=== PATIENT | female | born 1965 | race Caucasian/White ===

== ENCOUNTER 2024-03-16 19:15 | Emergency (ER) | payer OTHER, SELFPAY ==
[2024-03-16] VITALS (33 sets, daily range): BP systolic 111–149; BP diastolic 69–94; PULSE 53–116; TEMP 36.3; O2SAT 96–100
--- NOTE | 2024-03-16 20:05 | ECG_ITS ---
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
--- NOTE | 2024-03-16 20:14 | ED.GENADUL1 ---
HPI HPI - General Adult General Chief complaint: Weakness Stated complaint: Palpitation Time Seen by Provider: 03/16/24 20:02 Source: patient Mode of arrival: Wheelchair Limitations: no limitations History of Present Illness HPI narrative: 59-year-old female presents for not feeling well. It started about a month ago when she stopped the Wegovy on her own but it got much worse yesterday. She was not able to work and she has been vomiting and she states she cannot keep anything down. She has not had a fever or hematemesis and does not complain to me of abdominal pain. Related Data Home Medications ?Medication ?Instructions ?Recorded ?Confirmed cholecalciferol (vitamin D3) 1,250 50,000 unit PO QDAY 03/16/24 03/16/24 mcg (50,000 unit) capsule escitalopram oxalate 20 mg tablet 20 mg PO QDAY 03/16/24 03/16/24 hydrocodone 5 mg-acetaminophen 325 1 tab PO Q8H PRN pain 03/16/24 03/16/24 mg tablet ondansetron 8 mg disintegrating 8 mg PO Q8H PRN nausea and vomiting 03/16/24 03/16/24 tablet pantoprazole 40 mg tablet,delayed 40 mg PO QDAY 03/16/24 03/16/24 release pregabalin 50 mg capsule 50 mg PO Q8H 03/16/24 03/16/24 promethazine 25 mg tablet 25 mg PO TID PRN nausea and 03/16/24 03/16/24 vomiting tizanidine 4 mg tablet 4 mg PO .qhs muscle spasms 03/16/24 03/16/24 Allergies Allergy/AdvReac Type Severity Reaction Status Date / Time tramadol [From Ultram] Allergy unknown Verified 03/16/24 19:30 Opioid HPI Opioid Management Most Recent Opioid Data: Last Pain Scale 6 03/16/24 20:35 Last ED Pain Assessment 03/16/24 20:35 Review of Systems ROS Narrative A ten point review of systems is negative except as noted above. Exam Narrative Exam Narrative: Nurses note and vital signs reviewed and patient is not hypoxic. General: The patient appears in no acute distress but she is shivering. Skin: Warm, dry, no pallor noted. There is no rash noted. Head: Normocephalic, atraumatic Eye: Normal conjunctiva, no drainage Ears, Nose, Mouth, and Throat: oral mucosa is slightly dry. Nares patent. Cardiovascular: Regular Rate and Rhythm Respiratory: Patient is in no distress, no accessory muscle use, lungs are clear to auscultation, no wheezing, rales or rhonchi Back: non-tender GI: Soft and nontender Musculoskeletal: The patient has no evidence of calf tenderness, no pitting edema, symmetrical pulses noted bilaterally Neurological: Awake and alert Psychiatric: Cooperative Constitutional Vital Signs, click to edit/add: Last Vital Signs Temp 97.3 F L 03/16/24 19:21 Pulse 85 03/16/24 23:31 Resp 22 H 03/16/24 23:31 BP 143/84 H 03/16/24 23:31 Pulse Ox 99 03/16/24 23:31 O2 Del Method Room Air 03/16/24 19:21 Course Vital Signs Vital signs: Vital Signs Temperature 97.3 F L 03/16/24 19:21 Pulse Rate 116 H 03/16/24 19:21 Respiratory Rate 44 H 03/16/24 19:21 Blood Pressure 126/78 03/16/24 19:21 Pulse Oximetry 98 03/16/24 19:21 Oxygen Delivery Method Room Air 03/16/24 19:21 Temperature 97.3 F L 03/16/24 19:21 Pulse Rate 85 03/16/24 23:31 Respiratory Rate 22 H 03/16/24 23:31 Blood Pressure 143/84 H 03/16/24 23:31 Pulse Oximetry 99 03/16/24 23:31 Oxygen Delivery Method Room Air 03/16/24 19:21 Medical Decision Making MDM Narrative Medical decision making narrative: Blood work is essentially normal other than low potassium. She was given oral supplementation. She was given IV fluids and Zofran and feels tremendously better. Her symptoms have resolved and she is able to be discharged home. Treatment diagnosis and follow-up were discussed with the patient Differential Diagnosis Differential Diagnosis: Generalized weakness, dehydration, acute kidney injury, anxiety Lab Data Lab results reviewed: Yes I reviewed the patient's lab results Labs: Lab Results 03/16/24 03/16/24 Range/Units 20:35 21:35 WBC 6.7 (4.0-11.0) 10^3/uL RBC 4.17 L (4.20-5.40) 10^6/uL Hgb 13.6 (12.0-16.0) g/dL Hct 40.1 (36.0-48.0) % MCV 96.2 (81.0-99.0) fL MCH 32.6 (26.7-34.0) pg MCHC 33.9 (29.9-35.2) g/dL RDW 13.0 (11.0-15.0) % Plt Count 331 (150-450) 10^3/uL MPV 11.3 (9.5-13.5) fL Neut % (Auto) 52.4 (43.0-75.0) % Lymph % (Auto) 35.6 (20.5-60.0) % [place] % (Auto) 9.0 (1.7-12.0) % Eos % (Auto) 1.5 (0.9-7.0) % Baso % (Auto) 1.2 (0.2-2.0) % Neut # (Auto) 3.5 (1.4-6.5) 10^3/uL Lymph # (Auto) 2.4 (1.2-3.8) 10^3/uL [place] # (Auto) 0.6 (0.3-0.8) 10^3/uL Eos # (Auto) 0.1 (0.0-0.7) 10^3/uL Baso # (Auto) 0.1 (0.0-0.1) 10^3/uL Abs Immat Gran (auto) 0.02 (0.00-0.03) 10^3/uL Imm/Tot Granulo (auto) 0.3 (0.0-0.5) % Sodium 139 (136-145) mmol/L Potassium 3.0 L (3.5-5.1) mmol/L Chloride 104 (98-107) mmol/L Carbon Dioxide 21.4 (21.0-32.0) mmol/L Anion Gap 16.6 BUN 10.0 (7.0-18.0) mg/dL Creatinine 0.94 (0.55-1.02) mg/dL Est GFR ( Amer) >60 (>=60) Est GFR (Non-Af Amer) >60 (>=60) BUN/Creatinine Ratio 10.6 Glucose 89 (74-106) mg/dL Calcium 9.6 (8.5-10.1) mg/dL Total Bilirubin 0.8 (0.2-1.0) mg/dL Direct Bilirubin 0.2 (0.0-0.2) mg/dL AST 16 (15-37) U/L ALT 17 (14-59) U/L Alkaline Phosphatase 106 (46-116) U/L Troponin I High Sens 10.8 (4.0-51.3) pg/mL Total Protein 6.5 (6.4-8.2) g/dL Albumin 3.2 L (3.4-5.0) g/dL Globulin 3.3 g/dL Albumin/Globulin Ratio 1.0 Urine Color Lt. yellow (YELLOW) Urine Clarity Clear (CLEAR) Urine pH 7.0 (5.0-9.0) Ur Specific [place] 1.010 (1.005-1.025) Urine Protein Negative (NEG/TRACE) mg/dL Urine Glucose (UA) Negative (NEGATIVE) mg/dL Urine Ketones >=80 A (NEGATIVE) mg/dL Urine Occult Blood Negative (NEGATIVE) Urine Nitrite Negative (NEGATIVE) Urine Bilirubin Negative (NEGATIVE) Urine Urobilinogen 0.2 (0.2-1.0) EU/dL Ur Leukocyte Esterase Negative (NEGATIVE) Urine RBC 0-2 (0-2) #/HPF Urine WBC None seen (NONE SEEN) #/HPF Ur Squamous Epith Cells None seen (NONE/RARE) #/LPF Urine Crystals None seen (None Seen) #/HPF Urine Bacteria None seen (NONE SEEN) #/HPF Urine Casts None seen (NONE SEEN) #/LPF Urine Mucus None seen (NONE SEEN) Ur Culture Indicated? No Imaging Data Chest x-ray: Radiologist's impression: ITS Impressions Chest X-Ray 03/16/24 21:52 IMPRESSION: No plain film evidence for acute cardiopulmonary disease. Electronically authenticated by: CK SCHUMACHER Date: 03/16/2024 23:31 ECG Data Attestation: I personally reviewed and interpreted this ECG as follows: (EKG on my interpretation shows normal sinus rhythm with rate of 74 and no acute change) Discharge Plan Discharge Chief Complaint: Weakness Clinical Impression: Generalized weakness Patient Disposition: Home, Self-Care Time of Disposition Decision: 23:49 Condition: Good Mode of Transportation: Private Vehicle Prescriptions / Home Meds: No Action tizanidine 4 mg tablet 4 mg PO .qhs hydrocodone-acetaminophen 5-325 mg tablet 1 tab PO Q8H PRN (Reason: pain) ondansetron 8 mg tablet,disintegrating 8 mg PO Q8H PRN (Reason: nausea and vomiting) pantoprazole 40 mg tablet,delayed release (DR/EC) 40 mg PO QDAY promethazine 25 mg tablet 25 mg PO TID PRN (Reason: nausea and vomiting) escitalopram oxalate 20 mg tablet 20 mg PO QDAY pregabalin 50 mg capsule 50 mg PO Q8H cholecalciferol (vitamin D3) 1,250 mcg (50,000 unit) capsule 50,000 unit PO QDAY Print Language: Paraguayan Instructions: Weakness (ED) Referrals: GARY GARCIA [Primary Care Provider] - 1 week
[2024-03-16] MEDS: 0.9 % SODIUM CHLORIDE 1,000 ML 1000 ML IV (20:37)
[2024-03-16] MEDS: ONDANSETRON PF 4 MG/2 ML VIAL IV (20:40)
[2024-03-16 20:53] LABS: Basophils Absolute Auto 0.1 10^3/uL (0.0-0.1); Basophils Percent Auto 1.2 % (0.2-2.0); Eosinophils Absolute Auto 0.1 10^3/uL (0.0-0.7); Eosinophils Percent Auto 1.5 % (0.9-7.0); Hematocrit 40.1 % (36.0-48.0); Hemoglobin 13.6 g/dL (12.0-16.0); Immature Granulocytes Abs Auto 0.02 10^3/uL (0.00-0.03); Immature Granulocytes Pct Auto 0.3 % (0.0-0.5); Lymphocytes Absolute Auto 2.4 10^3/uL (1.2-3.8); Lymphocytes Percent Auto 35.6 % (20.5-60.0); Mean Corpuscular HGB Conc 33.9 g/dL (29.9-35.2); Mean Corpuscular Hemoglobin 32.6 pg (26.7-34.0); Mean Corpuscular Volume 96.2 fL (81.0-99.0); Mean Platelet Volume 11.3 fL (9.5-13.5); Monocytes Absolute Auto 0.6 10^3/uL (0.3-0.8); Neutrophils Absolute Auto 3.5 10^3/uL (1.4-6.5); Neutrophils Percent Auto 52.4 % (43.0-75.0); Platelet Count 331 10^3/uL (150-450); Red Blood Count 4.17 10^6/uL (4.20-5.40); White Blood Count 6.7 10^3/uL (4.0-11.0)
[2024-03-16 21:12] LABS: Alanine Aminotransferase 17 U/L (14-59); Albumin Level 3.2 g/dL (3.4-5.0); Alkaline Phosphatase 106 U/L (46-116); Anion Gap 16.6; Aspartate Amino Transferase 16 U/L (15-37); BUN Creatinine Ratio 10.6; Bilirubin Direct 0.2 mg/dL (0.0-0.2); Bilirubin Total 0.8 mg/dL (0.2-1.0); Calcium 9.6 mg/dL (8.5-10.1); Carbon Dioxide 21.4 mmol/L (21.0-32.0); Chloride 104 mmol/L (98-107); Estimated GFR (African America >60 (>=60); Estimated GFR (Non-African Ame >60 (>=60); Globulin 3.3 g/dL; Glucose 89 mg/dL (74-106); Sodium 139 mmol/L (136-145); Total Protein 6.5 g/dL (6.4-8.2); Troponin I High Sensitivity 10.8 pg/mL (4.0-51.3)
[2024-03-16 21:42] LABS: Bilirubin Urine NEGATIVE (NEGATIVE); Blood Urine NEGATIVE (NEGATIVE); Clarity Urine CLEAR (CLEAR); Color Urine LT. YELLOW (YELLOW); Glucose Urine UA NEGATIVE (NEGATIVE); Ketones Urine >=80 mg/dL (NEGATIVE); Leukocyte Esterase Urine NEGATIVE (NEGATIVE); Nitrite Urine NEGATIVE (NEGATIVE); Protein Urine NEGATIVE (NEG/TRACE); Urobilinogen Urine 0.2 EU/dL (0.2-1.0)
[2024-03-16 21:51] LABS: Bacteria Urine NONE SEEN #/HPF (NONE SEEN); Cast Seen? NONE SEEN #/LPF (NONE SEEN); Crystals Seen? None Seen #/HPF (None Seen); Mucus Urine NONE SEEN (NONE SEEN); RBC Urine 0-2 #/HPF (0-2); Squamous Epithelial Cell Urine NONE SEEN #/LPF (NONE/RARE); Urine Culture Indicated NO; WBC Urine NONE SEEN #/HPF (NONE SEEN)
--- NOTE | 2024-03-16 21:52 | XR_ITS ---
The [address] [address] Patient Name: LORNE MOORE MRN: [id number] date: 1965 Sex: F Assigned Patient Location: ER Current Patient Location: ED.MAIN Accession/Order Number: [id number] Exam Date: 03/16/2024 22:11 Report Date: 03/16/2024 23:31 At the request of: FABIAN CHRISTIANSON Procedure: XR chest 1V CXR HISTORY: Weakness COMPARISON: None. TECHNIQUE: 1 view of the chest submitted for review. FINDINGS: Lines and tubes: None Lungs are hyperaerated. No acute infiltrate. No effusion. The cardiac silhouette measures within normal. Pulmonary vascularity is unremarkable. Osseous structures are normal for age. XR/XR chest 1V IMPRESSION: No plain film evidence for acute cardiopulmonary disease. Electronically authenticated by: CK SCHUMACHER Date: 03/16/2024 23:31
[2024-03-16] MEDS: POTASSIUM BICARBONATE/CIT 25 MEQ TABLET EFF 50 MEQ PO (22:06)
== END 2024-03-16 23:55 | disposition home or self-care (01) ==
PROVIDERS: Emergency Provider Emergency Medicine; PCP Family Medicine
DX: R53.1 Weakness (principal); E87.6 Hypokalemia
CPT/HCPCS: 36415; 71045; 80048; 80076; 81001; 84484; 85025; 93005; 96361; 96374; 99285; J2405

== ENCOUNTER 2025-06-05 12:52 | Inpatient (IN) | payer OTHER, SELFPAY ==
--- OUTSIDE RECORDS SUMMARY | 2025-06-03 11:30 | XMS_ITS | Encounter Summary ---
Author Organization [facility] [employer] [facility] tem Address [id number] [address] 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 1 month and 1/2 Encounter Details DateTypeDepartmentCare Team (Latest Contact Info)Qkzwqfmmnyc96/04/2025 11:30 AM ESTOffice Visit [facility] [address] [place] [address] Jimmie Demarco DO [address], [place] [address] Anxiety (Primary Dx); Moderate major depression (CMS-HCC); Nausea and vomiting, unspecified vomiting type; Class 1 obesity due to excess calories with serious comorbidity and body mass index (BMI) of 31.0 to 31.9 in adult Social History Tobacco UseTypesPacks/DayYears UsedDateSmoking Tobacco: PawenlPhvoobwmaa129.9 2014 - 1978Smokeless Tobacco: NeverAlcohol UseStandard Drinks/WeekCommentsYes0 (1 standard drink = 0.6 oz pure alcohol)socialPHQ-2AnswerDate RecordedTotal Usihg0028Exercise Vital SignAnswerDate RecordedOn average, how many days per week do you engage in moderate to strenuous exercise (like a brisk walk)?3 days08/31/2024On average, how many minutes do you engage in exercise at this level?20 min08/31/2024PRAPARE - TransportationAnswerDate RecordedIn the past 12 months, has lack of transportation kept you from medical appointments or from getting medications?No03/15/2025In the past 12 months, has lack of transportation kept you from meetings, work, or from getting things needed for daily living?No03/15/2025UDIT-CAnswerDate RecordedQ1: How often do you have a drink containing alcohol?Never06/03/2025Q2: How many drinks containing alcohol do you have on a typical day when you are drinking?Patient does not drink 06/03/2025Q3: How often do you have six or more drinks on one occasion?Never 06/03/2025Housing InstabilityAnswerDate RecordedAre you worried or concerned that in the next two months you may not have stable housing that you own, rent or stay in as a part of a household?No10/15/2023hildcareAnswerDate RecordedDo problems getting childbirth and infant care teacher 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 to work or study?No 10/15/2023EmploymentAnswerDate RecordedDo you need help finding a local career center and/or a training program?No08/31/2024Hunger ScreeningAnswerDate Recorded Within the past 12 months we worried whether our food would run out before we got money to buy more.Never True06/03/2025Within the past 12 months the food we bought just didn't last and we didn't have money to get more.Never True 06/03/2025CommentsUnknownSex and Gender InformationValueDate RecordedSex Assigned at BirthNot on fileLegal MqaXpzmpa48/28/2024 1:39 PM EDTGender Identity Not on fileSexual OrientationNot on filedocumented as of this encounter Last Filed Vital Signs Vital SignReadingTime TakenCommentsBlood Lvvzaand741/6006/03/2025 11:41 AM EST Vqsrf824406/03/2025 11:41 AM ROYDhbfqduakxk72.6 ??C (97.8 ??F)06/03/2025 11:41 AM ESTRespiratory Fjne438908/04/2024 11:41 AM ESTOxygen Llznpwygjz49%06/03/2025 11:41 AM ESTInhaled Oxygen Concentration--Lgoeye21.8 kg (202 lb 6.4 oz)06/03/2025 11:41 AM SDZNgzuyw986.2 cm (5' 7.01 )06/03/2025 11:41 AM ESTBody Mass Index31.69 06/03/2025 11:41 AM ESTdocumented in this encounter Functional Status * AUDIT-C ScoreAnswerDate of LiugmocmfhTujthg156/04/2025 11:41 AM Ximena Brothers CMA * QuestionAnswerDate of AssessmentAuthorQ1: How often do you have a drink containing alcohol?Never06/03/2025 11:41 AM Ximena Brothers CMAQ2: How many drinks containing alcohol do you have on a typical day when you are drinking?Patient does not drink06/03/2025 11:41 AM Ximena Brothers CMA Q3: How often do you have six or more drinks on one occasion?Never06/03/2025 11:41 AM Ximena Brothers CMA * Over the last 2 weeks, how often have you been bothered by any of the following problems?QuestionAnswerDate of AssessmentAuthorFeeling nervous, anxious, or on cray016 11:38 AM Ximena Brothers CMANot being able to stop or control wocjcdzk009/04/2025 11:38 AM Ximena Brothers CMA Worrying too much about different nucjzt219 11:38 AM Ximena Brothers CMATrouble qmhessbz784/04/2025 11:38 AM Ximena Brothers CMA Being so restless that it is hard to sit eldly486 11:38 AM Ximena Brothers CMABecoming easily annoyed or /04/2025 11:38 AM Ximena Oneil CMAFeeling afraid as if something awful might happen0 06/03/2025 11:38 AM Ximena Brothers CMAGAD-7 Total Ypuln88608/04/2024 11:38 AM Ximena Brothers CMA documented as of this encounter Progress Notes * Jimmie Demarco, DO - 06/03/2025 11:30 AM EST Subjective Patient ID: Sakshi Hightower is a 60 y.o. female. Lina presents today for anxiety and depression recheck. She is having a lot of anxiety and depression symptoms. It has been worse around the holidays and since her surgery. She is not suicidal. She does not want to hurt herself. She has a lot to live for. She just does not feel right. She does not feel like getting out of bed in the morning. That is not like her. Her Lexapro is at 20 mg and she has been taking it for years. She is shaking. She is taking lorazepam 0.5 mg but that was not effective so she took 2 of them and that worked better. She was still using 2 a day but would just take him to at once. She is also having a lot of nausea and vomiting. She has never weight this little in many years. She has had bariatric surgery. She tried having a banana on the way over but threw it up. She has beenusing Zofran frequently as well as hydroxyzine. She had her left knee replaced in March and has been off. She will return to work in 2 weeks. Sheneeds her right knee replaced but it is going to put it off for about a year. Depression Initial visit: Symptoms: nausea and nervous/anxious The following portions of the patient's history were reviewed and updated as appropriate: allergies, current medications, past family history, past medical history, past social history, past surgicalhistory, problem list, and medication reconciliation was completed including current medication andpost discharge medication. Review of Systems Constitutional: Positive for unexpected weight change. Respiratory: Negative. Cardiovascular: Negative. Gastrointestinal: Positive for nausea and vomiting. Genitourinary: Negative. Musculoskeletal: Positive for arthralgias. Neurological: Positive for tremors. Psychiatric/Behavioral: Positive for dysphoric mood and sleep disturbance. The patient is nervous/anxious. Objective Physical Exam Vitals reviewed. Constitutional: General: She is not in acute distress. Appearance: Normal appearance. She is not ill-appearing. Cardiovascular: Rate and Rhythm: Normal rate and regular rhythm. Heart sounds: No murmur heard. Pulmonary: Effort: Pulmonary effort is normal. No respiratory distress. Breath sounds: Normal breath sounds. No wheezing, rhonchi or rales. Neurological: General: No focal deficit present. Mental Status: She is alert and oriented to person, place, and time. Motor: Tremor present. Gait: Gait abnormal (Antalgic and slow). Psychiatric: Attention and Perception: Attention normal. Mood and Affect: Mood is anxious and depressed. Speech: Speech normal. Behavior: Behavior normal. Behavior is cooperative. Thought Content: Thought content normal. Thought content does not include suicidal ideation. Thought content does not include suicidal plan. Cognition and Memory: Cognition and memory normal. Judgment: Judgment normal. Assessment/Plan Sakshi was seen today for depression. Diagnoses and all orders for this visit: Anxiety - LORazepam (ATIVAN) 1 mg tablet; Take 1 tablet (1 mg total) by mouth in the morning and 1 tablet (1 mg total) before bedtime. She is still having mild anxiety symptoms. She used 1 mg of lorazepam with benefit. I am going to increase her lorazepam to 1 mg twice a day as needed. Moderate major depression (CMS-HCC) She still has moderate depression. She is pretty much maxed out on the Lexapro. We discussed risks and benefits of other medications. Add Vraylar 1.5 mg daily. Nausea and vomiting, unspecified vomiting type Encouraged her to use a little bit more of the hydroxyzine which can also help with anxiety. May continue with Zofran. Class 1 obesity due to excess calories with serious comorbidity and body mass index (BMI) of 31.0 to 31.9 in adult She continues to lose weight. Not sure why she continues to have nausea and vomiting. May need to have this evaluated further. Patient noted to have elevated BMI and the following intervention(s) were applied: prescribed diet education. She can not do much exercise due to needing it right knee replacement. Other orders - cariprazine (VRAYLAR) 1.5 mg capsule; Take 1 capsule (1.5 mg total) by mouth in the morning. documented in this encounter Plan of Treatment DateTypeDepartmentCare Team (Latest Contact Info)Mapkvcnkrrm16/16/2025 4:45 PM ESTOffice Visit [facility] [address] [place] [address] Jimmie Demarco DO [address], [place] [address] documented as of this encounter Visit Diagnoses Diagnosis Anxiety- Primary Anxiety state, unspecified Moderate major depression ([facility]-HCC) Major depressive disorder, single episode, moderate Nausea and vomiting, unspecified vomiting type Class 1 obesity due to excess calories with serious comorbidity and body mass index (BMI) of 31.0 to 31.9 in adult documented in this encounter Additional Health Concerns AssessmentNoted TimePHQ-9 Depression Total Score: 14108/04/2024 11:35 AM ESTA Body Mass Index follow-up plan has been documented for the ozbwkpt0706/03/2025 5:48 PM ESTdocumented as of this encounter Care Teams Team MemberRelationshipSpecialtyStart DateEnd Date Jimmie Demacro DO [address], [facility] [address] PCP - GeneralFamily Medicine10/15/23documented as of this encounter
[2025-06-05] VITALS (61 sets, daily range): BP systolic 73–107; BP diastolic 41–69; PULSE 41–62; TEMP 36.3–36.5; O2SAT 69–100; BMI 30.7; BMI 31.5
--- NOTE | 2025-06-05 13:20 | PC.NURSE ---
pt states at one point I was suicidal and I told Dr Demarco this and he said he wanted me to be seen by psych. I told him I would never do it, I have too many grandchildren to live for. Dr Amaya aware. Pt denying all [place] suicidal questions.
--- NOTE | 2025-06-05 13:23 | XR_ITS ---
The [place] [id number] Patient Name: LORNE MOORE MRN: [id number] date: 1965 Sex: F Assigned Patient Location: ER Current Patient Location: ED.MAIN Accession/Order Number: [id number] Exam Date: 06/05/2025 13:45 Report Date: 06/05/2025 14:27 At the request of: FABIAN CHRISTIANSON MD Procedure: XR chest 1V PA CHEST: CLINICAL HISTORY: Vomiting COMPARISON: 03/16/2024 The heart is normal in size. The lungs are clear. The pulmonary vasculature is normal. Mediastinum and hilar regions are unremarkable. No pleural effusions are seen. Visualized bones are intact. XR/XR chest 1V IMPRESSION: Negative acute pleural-parenchymal disease. Impression dictated by: Luis Manuel Moise M.D. 06/05/2025 2:27 PM Dictation Location: [place] [address] Electronically authenticated by: [id number] Y Date: 06/05/2025 14:27
--- NOTE | 2025-06-05 13:23 | ECG_ITS ---
The 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 Measurements Intervals [place] Rate: 48 P: 46 MN: 152 QRS: -8 QRSD: 84 T: 44 QT: 486 QTc: 453 Interpretive Statements 1130 Sinus bradycardia 2420 RSR (QR) in lead V1/V2, consistent with right ventricular conduction delay 8304 Long QTc interval 9150 abnormal ECG Compared to ECG 03/16/2024 20:24:17 Sinus rhythm no longer present Short MN interval no longer present Electronically Signed On 06-05-2025 15:08:43 EST by SAMANTHA DUMAS M.D.
--- NOTE | 2025-06-05 13:25 | ED.GENADUL1 ---
HPI HPI - General Adult General Chief complaint: Nausea/Vomiting/Diarrhea Stated complaint: VOMITING WEAKNESS Time Seen by Provider: 06/05/25 12:54 Source: patient Mode of arrival: Wheelchair Limitations: no limitations History of Present Illness HPI narrative: 60-year-old female presented to the emergency department for nausea and vomiting. She states it is due to narcotic withdrawal. She states she has been on narcotics for about 20 years. She was getting them from her PCP and then pain management and then she was cut off and has not had any for 3 days. She has been taking kratom. She also smokes marijuana. She has been nauseous and vomiting, no hematemesis or fever. Related Data Home Medications ?Medication ?Instructions ?Recorded ?Confirmed cholecalciferol (vitamin D3) 1,250 50,000 unit PO QDAY 03/16/24 06/05/25 mcg (50,000 unit) capsule escitalopram oxalate 20 mg tablet 20 mg PO QDAY 03/16/24 06/05/25 tizanidine 4 mg tablet 4 mg PO .qhs muscle spasms 03/16/24 06/05/25 albuterol 90 mcg/actuation aerosol 90 mcg inhalation Q4H 06/05/25 06/05/25 inhaler cariprazine 1.5 mg capsule 1.5 mg PO DAILY 06/05/25 06/05/25 (Vraylar) escitalopram oxalate 20 mg tablet 20 mg PO QDAY 06/05/25 06/05/25 (Lexapro) hydroxyzine HCl 25 mg tablet 25 mg PO Q8H PRN anxiety 06/05/25 06/05/25 lorazepam 1 mg tablet (Ativan) 1 mg PO Q12H PRN anxiety 06/05/25 06/05/25 ondansetron 8 mg disintegrating 8 mg PO Q8H PRN nausea and vomiting 06/05/25 06/05/25 tablet pantoprazole 40 mg tablet,delayed 40 mg PO DAILY 06/05/25 06/05/25 release pregabalin 50 mg capsule 50 mg PO Q8H 06/05/25 06/05/25 tizanidine 4 mg tablet (Zanaflex) 4 mg PO TID 06/05/25 06/05/25 Allergies Allergy/AdvReac Type Severity Reaction Status Date / Time tramadol (From Ultra) Allergy unknown Verified 06/05/25 12:57 Opioid HPI Opioid Management Most Recent Opioid Data: Last Pain Scale 7 Today, 12:58 Ur Phencyclidine Scrn, (NEGATIVE) Negative Today, 14:15 Review of Systems ROS Narrative A ten point review of systems is negative except as noted above. PFSH PFSH Social History Little interest or pleasure in doing things: not at all Feeling down, depressed, or hopeless: not at all Exam Narrative Exam Narrative: Nurses note and vital signs reviewed General:The patient appears in no apparent distress. Patient is resting comfortably on cart. Skin:Warm, dry, no pallor noted.There is no rash noted. Head:Normocephalic, atraumatic Eye: Normal conjunctiva, no drainage Ears, Nose, Mouth, and Throat: oral mucosa is moderately dry. Nares patent. Cardiovascular:Regular Rate and Rhythm Respiratory:Patient is in no distress, no accessory muscle use, lungs are clear to auscultation, no wheezing, rales or rhonchi Back:non-tender GI: Soft and nontender Musculoskeletal: The patient has no evidence of calf tenderness, no pitting edema, symmetrical pulses noted bilaterally Neurological: Awake alert and oriented Psychiatric:Cooperative Constitutional Vital Signs, click to edit/add: Last Vital Signs Temp 97.7 F 06/05/25 13:37 Pulse 46 L 06/05/25 15:15 Resp 15 06/05/25 15:15 BP 98/50 06/05/25 15:24 Pulse Ox 100 06/05/25 15:15 O2 Del Method Room Air 06/05/25 12:58 Course Vital Signs Vital signs: Vital Signs Pulse Rate 50 L 06/05/25 12:58 Respiratory Rate 16 06/05/25 12:58 Blood Pressure 90/56 06/05/25 12:58 Pulse Oximetry 98 06/05/25 12:58 Oxygen Delivery Method Room Air 06/05/25 12:58 Temperature 97.7 F 06/05/25 13:37 Pulse Rate 46 L 06/05/25 15:15 Respiratory Rate 15 06/05/25 15:15 Blood Pressure 98/50 06/05/25 15:24 Pulse Oximetry 100 06/05/25 15:15 Oxygen Delivery Method Room Air 06/05/25 12:58 Medical Decision Making MDM Narrative Medical decision making narrative: The patient has been on narcotics for about 20 years and stopped 3 days ago. She has had some vomiting. She has not having any tremors. Blood pressure was noted to be low at triage and she was given 2 L of IV fluid. She has come up slightly but her systolic blood pressures still in the upper 90s. She will be admitted for IV fluids and observation. Findings are discussed thoroughly with the patient and her daughter. The patient herself denies any suicidal thoughts. Differential Diagnosis Differential Diagnosis: Dehydration, narcotic withdrawal Lab Data Lab results reviewed: Yes I reviewed the patient's lab results Labs: Lab Results 06/05/25 06/05/25 Range/Units 13:07 14:15 WBC 4.8 (4.0-11.0) 10^3/uL RBC 3.87 L (4.20-5.40) 10^6/uL Hgb 11.9 L (12.0-16.0) g/dL Hct 35.7 L (36.0-48.0) % MCV 92.2 (81.0-99.0) fL MCH 30.7 (26.7-34.0) pg MCHC 33.3 (29.9-35.2) g/dL RDW 14.5 (11.0-15.0) % Plt Count 341 (150-450) 10^3/uL MPV 11.1 (9.5-13.5) fL Neut % (Auto) 54.7 (43.0-75.0) % Lymph % (Auto) 30.8 (20.5-60.0) % [place] % (Auto) 10.1 (1.7-12.0) % Eos % (Auto) 2.9 (0.9-7.0) % Baso % (Auto) 1.3 (0.2-2.0) % Neut # (Auto) 2.6 (1.4-6.5) 10^3/uL Lymph # (Auto) 1.5 (1.2-3.8) 10^3/uL [place] # (Auto) 0.5 (0.3-0.8) 10^3/uL Eos # (Auto) 0.1 (0.0-0.7) 10^3/uL Baso # (Auto) 0.1 (0.0-0.1) 10^3/uL Abs Immat Gran (auto) 0.01 (0.00-0.03) 10^3/uL Imm/Tot Granulo (auto) 0.2 (0.0-0.5) % Sodium 135 L (136-145) mmol/L Potassium 3.7 (3.5-5.1) mmol/L Chloride 102 (98-107) mmol/L Carbon Dioxide 21.5 (21.0-32.0) mmol/L Anion Gap 15.2 BUN 9.0 (7.0-18.0) mg/dL Creatinine 1.05 H (0.55-1.02) mg/dL Est GFR ( Amer) >60 (>=60 mL/min/1.73m^2) Est GFR (Non-Af Amer) 54 L (>=60 mL/min/1.73m^2) BUN/Creatinine Ratio 8.6 Glucose 138 H (74-106) mg/dL Calcium 9.1 (8.5-10.1) mg/dL Total Bilirubin 0.7 (0.2-1.0) mg/dL Direct Bilirubin 0.1 (0.0-0.2) mg/dL AST 13 L (15-37) U/L ALT 12 L (14-59) U/L Alkaline Phosphatase 118 H (46-116) U/L Troponin I High Sens 4.3 (4.0-51.3) pg/mL Total Protein 6.3 L (6.4-8.2) g/dL Albumin 3.2 L (3.4-5.0) g/dL Globulin 3.1 g/dL Albumin/Globulin Ratio 1.0 Urine Color Yellow (YELLOW) Urine Clarity Clear (CLEAR) Urine pH 5.5 (5.0-9.0) Ur Specific [place] 1.020 (1.005-1.025) Urine Protein Negative (NEG/TRACE) mg/dL Urine Glucose (UA) Negative (NEGATIVE) mg/dL Urine Ketones Negative (NEGATIVE) mg/dL Urine Occult Blood Negative (NEGATIVE) Urine Nitrite Negative (NEGATIVE) Urine Bilirubin Negative (NEGATIVE) Urine Urobilinogen 0.2 (0.2-1.0) EU/dL Ur Leukocyte Esterase Negative (NEGATIVE) Urine RBC 0-2 (0-2) #/HPF Urine WBC 5-10 A (NONE SEEN) #/HPF Ur Squamous Epith Cells Moderate A (NONE/RARE) #/LPF Urine Crystals None seen (None Seen) #/HPF Urine Bacteria Trace A (NONE SEEN) #/HPF Urine Casts Seen A (NONE SEEN) #/LPF Hyaline Casts Moderate Urine Mucus None seen (NONE SEEN) Ur Culture Indicated? Yes-[facility] [place] Urine Opiates Screen Negative (NEGATIVE) Ur Buprenorphine Scrn Negative (NEGATIVE) Ur Oxycodone Screen Negative (NEGATIVE) Urine Methadone Screen Negative (NEGATIVE) Ur Barbiturates Screen Negative (NEGATIVE) U Tricyclic Antidepress Negative (NEGATIVE) Ur Phencyclidine Scrn Negative (NEGATIVE) Ur Amphetamines Screen Negative (NEGATIVE) U Methamphetamines Scrn Negative (NEGATIVE) U Benzodiazepines Scrn Positive A (NEGATIVE) Urine Cocaine Screen Negative (NEGATIVE) U Cannabinoids Screen Positive A (NEGATIVE) Ethanol Quant <3 mg/dL Imaging Data Chest x-ray: Radiologist's impression: ITS Impressions Chest X-Ray 06/05/25 13:23 IMPRESSION: Negative acute pleural-parenchymal disease. Impression dictated by: Luis Manuel Moise M.D. 06/05/2025 2:27 PM Dictation Location: [place] [address] Electronically authenticated by: [id number] Y Date: 06/05/2025 14:27 ECG Data Attestation: I personally reviewed and interpreted this ECG as follows: (EKG on my interpretation shows sinus rhythm with a rate of 48 and no acute change) Discharge Plan Discharge Chief Complaint: Nausea/Vomiting/Diarrhea Clinical Impression: Nausea & vomiting, Narcotic withdrawal Patient Disposition: Admitted as Observation Time of Disposition Decision: 15:30 Condition: Fair
[2025-06-05] MEDS: 0.9 % SODIUM CHLORIDE 1,000 ML 1000 ML IV ×2 (13:29→14:35)
[2025-06-05 13:32] LABS: Hematocrit 35.7 % (36.0-48.0); Hemoglobin 11.9 g/dL (12.0-16.0); Immature Granulocytes Abs Auto 0.01 10^3/uL (0.00-0.03); Immature Granulocytes Pct Auto 0.2 % (0.0-0.5); Lymphocytes Absolute Auto 1.5 10^3/uL (1.2-3.8); Mean Corpuscular HGB Conc 33.3 g/dL (29.9-35.2); Mean Corpuscular Hemoglobin 30.7 pg (26.7-34.0); Mean Corpuscular Volume 92.2 fL (81.0-99.0); Platelet Count 341 10^3/uL (150-450); Red Blood Count 3.87 10^6/uL (4.20-5.40); White Blood Count 4.8 10^3/uL (4.0-11.0)
[2025-06-05 13:52] LABS: Alanine Aminotransferase 12 U/L (14-59); Albumin Globulin Ratio 1.0; Albumin Level 3.2 g/dL (3.4-5.0); Alkaline Phosphatase 118 U/L (46-116); Anion Gap 15.2; Aspartate Amino Transferase 13 U/L (15-37); Blood Urea Nitrogen 9.0 mg/dL (7.0-18.0); Calcium 9.1 mg/dL (8.5-10.1); Carbon Dioxide 21.5 mmol/L (21.0-32.0); Chloride 102 mmol/L (98-107); Estimated GFR (African America >60 (>=60 mL/min/1.73m^2); Estimated GFR (Non-African Ame 54 (>=60 mL/min/1.73m^2); Globulin 3.1 g/dL; Glucose 138 mg/dL (74-106); Potassium 3.7 mmol/L (3.5-5.1); Sodium 135 mmol/L (136-145); Total Protein 6.3 g/dL (6.4-8.2)
--- OUTSIDE RECORDS SUMMARY | 2025-06-05 13:56 | XMS_ITS | Clinical Summary ---
Author Organization [employer] s tem Address [id number] [address] [place] [address] Care Team Providers Care Outpatient Therapist Name Role Phone Jimmie Demarco Primary Care Provider [phone] Allergies Active AllergyReactionsCriticalityNoted DateCommentsPeanutAnaphylaxisHigh 04/21/2020 Tree nuts Pollen ZsnrcrnyMwrvwcgFefbjc35/22/2020 ragweed AaaxyditEkyofhqviejYzww93/15/2001Tree OgcnIoezbloayerPfqp20/10/2016 States she has EPI pen Medications MedicationSigDispense QuantityRefillsLast FilledStart DateEnd DateStatus cholecalciferol (VITAMIN D3) 50,000 units capsule TAKE 1 CAPSULE BY MOUTH ONCE A WEEK 12 capsule 5Active albuterol (PROVENTIL HFA;VENTOLIN HFA) 90 mcg/actuation inhaler Inhale 2 puffs.Active EPINEPHrine (EPIPEN) 0.3 mg/0.3 mL auto-injector Inject 0.3 mL (0.3 mg total) into the appropriate muscle.Active pregabalin (LYRICA) 50 mg capsule Indications:Chronic bilateral low back pain without sciaticaTake 1 capsule (50 mg total) by mouth 3 (three) times a day. 90 capsule 5Active hydrOXYzine (ATARAX) 25 mg tablet Take 1 tablet (25 mg total) by mouth every 8 (eight) hours as needed for itching. 30 tablet 5Active escitalopram (LEXAPRO) 20 mg tablet Take 1 tablet (20 mg total) by mouth in the morning. 90 tablet 5Active ondansetron ODT (ZOFRAN ODT) 8 mg disintegrating tablet Dissolve 1 tablet (8 mg total) on tongue every 8 (eight) hours as needed for nausea or vomiting. 20 tablet 5Active pantoprazole (PROTONIX) 40 mg EC tablet Take 1 tablet (40 mg total) by mouth every morning before breakfast. 30 tablet 5Active tiZANidine (ZANAFLEX) 4 mg tablet TAKE 1 TABLET BY MOUTH EVERY 4 HOURS NEEDED FOR MUSCLE SPASMS 120 tablet 5Active amoxicillin (AMOXIL) 500 mg capsule Take 4 capsules 1 hour before gmfofdnri46ctive HYDROcodone-acetaminophen (NORCO) 5-325 mg per tablet Take 1 tablet by mouth every 8 (eight) hours as needed.05/10/2025tive promethazine (PHENERGAN) 25 mg tablet Take 1 tablet (25 mg total) by mouth every 6 (six) hours as needed.04/17/2025 Active LORazepam (ATIVAN) 1 mg tablet Indications:AnxietyTake 1 tablet (1 mg total) by mouth in the morning and 1 tablet (1 mg total) before bedtime. 60 tablet 06/03/2025tive cariprazine (VRAYLAR) 1.5 mg capsule Take 1 capsule (1.5 mg total) by mouth in the morning. 14 capsule 06/03/2025tive pantoprazole (PROTONIX) 40 mg EC tablet Take 1 tablet (40 mg total) by mouth every morning before breakfast.06/18/2024 05/12/2025Discontinued(Reorder) semaglutide, weight loss, (WEGOVY) 1 mg/0.5 mL pen injector Indications:Class 1 obesity due to excess calories with serious comorbidity and body mass index (BMI) of 34.0 to 34.9 in adultInject 0.5 mL (1 mg total) under the skin every 7 days. 2 mL Discontinued(Patient Stopped On Own) ondansetron ODT (ZOFRAN ODT) 8 mg disintegrating tablet Dissolve 1 tablet (8 mg total) on tongue every 8 (eight) hours as needed for nausea or vomiting. 20 tablet Discontinued(Reorder) tiZANidine (ZANAFLEX) 4 mg tablet Take 1 tablet (4 mg total) by mouth every 4 (four) hours as needed for muscle spasms. 120 tablet 511/Discontinued LORazepam (ATIVAN) 0.5 mg tablet Indications:AnxietyTake 1 tablet (0.5 mg total) by mouth 2 (two) times a day as needed for anxiety. 30 tablet /Discontinued LORazepam (ATIVAN) 0.5 mg tablet Indications:AnxietyTAKE 1 TABLET BY MOUTH 2 TIMES A DAY NEEDED FOR ANXIETY 30 tablet /07/2024Discontinued LORazepam (ATIVAN) 0.5 mg tablet Indications:AnxietyTAKE 1 TABLET BY MOUTH 2 TIMES A DAY NEEDED FOR ANXIETY 30 tablet Discontinued(Dose adjustment) Active Problems ProblemNoted DateDiagnosed DatePrimary osteoarthritis of left knee12/03/2024 Vzzgum3112/03/20248989Fgfsfwx79/19/2024hronic bilateral low back pain without ztfadtsp19/20/2022Shift work sleep uhdccyba39/08/2021Migraine without aura and without status migrainosus, not wuakprinsmk81/08/2021Moderate major depression 04/21/2020Other headache wijxaufp56/22/2020Generalized anxiety disorder 04/21/2020Asthma, mild udxxvhjtsfvn28/22/2020OSA (obstructive sleep apnea) 09/21/2015AnxietyGERD (gastroesophageal reflux disease) Resolved Problems ProblemNoted DateDiagnosed DateResolved DateMorbid bsdnhin00 Encounters DateTypeDepartmentCare JmkuCfeyrmcgzjj97/05/2025[facility] [address] [place] [address] Kobe Pinzon RN 06/03/2025 11:30 AM ESTOffice Visit [facility] [address] [place] [address] Jimmie Demarco, DO Anxiety (Primary Dx); Moderate major depression (CMS-HCC); Nausea and vomiting, unspecified vomiting type; Class 1 obesity due to excess calories with serious comorbidity and body mass index (BMI) of 31.0 to 31.9 in adult06/03/20258030Ieomdz40/02/2025Telephone [facility] [address] [place] [address] Vanessa Garcia, [facility] 05/27/2025Refill [facility] [address] [place] [address] Jimmie Demarco, DO Bpandao6405/25/2025Refill [facility] [address] [place] [address] Jimmie Demarco, DO 05/25/2025Telephone [facility] [address] [place] [address] Arelis Jensen, [facility] Colon Cancer Smikjzyca29/13/2025Refill [facility] [address] [place] [address] Jimmie Demarco, DO Gljfhyn2805/12/2025Refill [facility] [address] [place] [address] Coral White, [facility] 05/03/2025Refill [facility] [address] [place] [address] Coral White, [facility] 04/27/2025Refill [facility] [address] [place] [address] Coral White, [facility] Eygmeio3904/26/2025Orders Only [facility] [address] [place] [address] Jimmie Demarco, DO Chronic bilateral low back pain without sciatica; Duexbdr7904/23/2025Refill [facility] [address] [place] [address] Jimmie Demarco, DO 04/12/2025Telephone [facility] [address] [place] [address] Ximena Chu, [facility] 04/12/2025Orders Only [facility] [address] [place] [address] Jimmie Demarco, DO 04/08/2025Orders Only [facility] [address] [place] [address] Ref Prov, Not In System 04/05/2025 8:30 AM EDTOffice Visit [facility] [address] [place] [address] Jimmie Demarco, DO Pre-op evaluation (Primary Dx); Primary osteoarthritis of left knee; Mild intermittent asthma, unspecified whether complicated; Class 1 obesity due to excess calories with serious comorbidity and body mass index (BMI) of 34.0 to 34.9 in adult04/05/20257645Kxlysc21/25/2025Orders Only [facility] [address] [place] [address] Jimmie Demarco, DO 03/25/2025Telephone [facility] [address] [place] [address] Ximena Chu, [facility] 03/22/2025Orders Only [facility] [address] [place] [address] Jimmie Demarco, DO 03/19/2025Orders Only [facility] [address] [place] [address] Jimmie Demarco, DO 03/19/2025Telephone [facility] [address] [place] [address] Coral White CMA 03/15/2025 4:00 PM EDTOffice Visit [facility] [address] [place] [address] Jimmie Demarco, DO Well adult exam (Primary Dx); Class 1 obesity due to excess calories with serious comorbidity and body mass index (BMI) of 34.0 to 34.9 in adult; Generalized anxiety disorder; Encounter for screening mammogram for malignant neoplasm of breast; Screen for colon cancer; Need for vaccination; Need for shingles vaccine; Other acute recurrent sinusitis; Chronic bilateral low back pain without ixasegbw17/15/2025Travelfrom Last 3 Months Immunizations ImmunizationAdministration DatesNext DuePneumococcal Conjugate 13-Valent 07/01/2004Tdap03/15/2025,11/19/2005Zoster Vaccine Rpvudttksnh87/15/2025 Family History Medical HistoryRelationNameCommentsAutoimmune diseaseFatherBlindnessMother Macular degenerationMotherRelationNameStatusCommentsFatherDeceasedMotherAlive Social History Tobacco UseTypesPacks/DayYears UsedDateSmoking Tobacco: XbrkjkZtobyeyjyh926.9 2014 - 1978Smokeless Tobacco: Never Tobacco Cessation:Counseling Given: Not Answered Alcohol UseStandard Drinks/WeekCommentsYes0 (1 standard drink = 0.6 oz pure alcohol)socialPHQ-2AnswerDate RecordedTotal Qhoxa2873/04/2025Exercise Vital Sign AnswerDate RecordedOn average, how many days per week do you engage in moderate to strenuous exercise (like a brisk walk)?3 days08/31/2024On average, how many minutes do you engage in exercise at this level?20 min08/31/2024PRAPARE - TransportationAnswerDate RecordedIn the past 12 months, has lack of transportation kept you from medical appointments or from getting medications?No 03/15/2025In the past 12 months, has lack of transportation kept you from meetings, work, or from getting things needed for daily living?No03/15/2025 AUDIT-CAnswerDate RecordedQ1: How often do you have a drink containing alcohol? Never06/03/2025Q2: How many drinks containing alcohol do you have on a typical day when you are drinking?Patient does not drink06/03/2025Q3: How often do you have six or more drinks on one occasion?Never06/03/2025Housing InstabilityAnswer Date RecordedAre you worried or concerned that in the next two months you may not have stable housing that you own, rent or stay in as a part of a household? No10/15/2023hildcareAnswerDate RecordedDo problems getting childhood development teacher 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 to work or study?No10/15/2023EmploymentAnswerDate RecordedDo you need help finding a local career center and/or a training program?No 08/31/2024Hunger ScreeningAnswerDate RecordedWithin the past 12 months we worried whether our food would run out before we got money to buy more.Never True06/03/2025Within the past 12 months the food we bought just didn't last and we didn't have money to get more.Never True06/03/2025CommentsUnknownSex and Gender InformationValueDate RecordedSex Assigned at BirthNot on fileLegal NhhBpmprs88/28/2024 1:39 PM EDTGender IdentityNot on fileSexual OrientationNot on file Last Filed Vital Signs Vital SignReadingTime TakenCommentsBlood Ipfnewso144/6006/03/2025 11:41 AM EST Tdwpx455206/03/2025 11:41 AM BZQKbkcnvcdtyj69.6 ??C (97.8 ??F)06/03/2025 11:41 AM ESTRespiratory Omqb949008/04/2024 11:41 AM ESTOxygen Yxcozvowuk68%06/03/2025 11:41 AM ESTInhaled Oxygen Concentration--Yozfyg57.8 kg (202 lb 6.4 oz)06/03/2025 11:41 AM KNXInnctj692.2 cm (5' 7.01 )06/03/2025 11:41 AM ESTBody Mass Index31.69 06/03/2025 11:41 AM EST Plan of Treatment DateTypeDepartmentCare Team (Latest Contact Info)Kgbhtptlbej37/16/2025 4:45 PM ESTOffice Visit [facility] [address] [place] [address] Jimmie Demarco DO [address], [place] [address] Health MaintenanceDue DateLast DoneCommentsPap Smear1987Colon Cancer Screening 3 Year Dkpfiyrid06/05/2011Influenza Wjjczom9303/01/2025Zoster (Shingles) Vaccine (2 of 2)dult BMI Follow Up Plan Adult BMI Uckphggbm19Depression Nctcbcsqc91 Tobacco Xkmztwjeg83DTaP,Tdap and Td Vaccines (3 - Td or Tdap) , 11/19/2005COVID-19 EqkhcykElqaowqjgwww98/09/2021, 11/09/2020 Medical Devices Not on file Procedures Procedure NamePriorityDate/TimeAssociated DiagnosisCommentsECG 12-LEADRoutine 04/08/2025 12:17 PM EDTfrom Last 3 Months Results * ECG 12 lead (04/08/2025 12:17 PM EDT) Narrative Authorizing ProviderResult TypeResult StatusNot In System Ref ProvECG ORDERABLES Final ResultPerforming OrganizationAddressCity/State/ZIP CodePhone Number MANUALLY TRANSCRIBED RESULTS from Last 3 Months Insurance Care Teams Team MemberRelationshipSpecialtyStart DateEnd Date Jimmie Demarco DO [address] [facility] [address] PCP - Generalmi Medicine10/15/23
--- OUTSIDE RECORDS SUMMARY | 2025-06-05 13:56 | XMS_ITS | Encounter Summary ---
Author Organization [employer] s tem Address [id number] [address] [place] [address] Care Team Providers Care Quill Stripper Name Role Phone Jimmie Demarco Primary Care Provider + [phone] Encounter Details DateTypeDepartmentCare Team (Latest Contact Info)Wbqcqrlclck92/04/2025Travel Social History Tobacco UseTypesPacks/DayYears UsedDateSmoking Tobacco: IrwxgtRbxynhilya200.9 2014 - 1978Smokeless Tobacco: NeverAlcohol UseStandard Drinks/WeekCommentsYes0 (1 standard drink = 0.6 oz pure alcohol)socialPHQ-2AnswerDate RecordedTotal Wrsid2707/04/2025Exercise Vital SignAnswerDate RecordedOn average, how many days [...] part of a household?No10/15/2023hildcareAnswerDate RecordedDo problems getting child and adolescent psychologist 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 to work [...] InformationValueDate RecordedSex Assigned at BirthNot on fileLegal OslBwjphr91/28/2024 1:39 PM EDTGender Identity Not on fileSexual OrientationNot on filedocumented as of this encounter Functional Status * AUDIT-C ScoreAnswerDate of BptuyucjvzFmrkru849/04/2025 11:41 AM Ximena Brothers CMA * QuestionAnswerDate [...] problems?QuestionAnswerDate of AssessmentAuthorFeeling nervous, anxious, or on xsde296 11:38 AM Ximena Brothers CMANot being able to stop or control wbmhwnoc080/04/2025 11:38 AM Ximena Brothers CMA Worrying too much about different 11:38 AM Ximena Brothers CMATrouble sxmejthf190/04/2025 11:38 AM Ximena Brothers, PNEUMATIC TUBE OPERATOR Being so restless that it is hard to sit yekau72208/04/2024 11:38 AM Deneen XimenaMANDYBecoming easily annoyed or yldvzbsns765/04/2025 11:38 AM Ximena Oneil, MANDYFeeling afraid as if something awful might happen0 06/03/2025 11:38 AM Deneen MANDY BuenoGAD-7 Total Irwki56308/04/2024 11:38 AM Ximena Brothers PNEUMATIC TUBE OPERATOR documented as of this encounter Plan of Treatment DateTypeDepartmentCare Team (Latest Contact Info)Yofzzotonyb79/16/2025 4:45 PM ESTOffice Visit [facility] [address] [place] [address] Jimmie Demarco DO [address] [facility] [address] documented as of this encounter Visit Diagnoses Not on filedocumented in this encounter Additional Health Concerns AssessmentNoted TimePQ-9 Depression Total Score: 14108/04/2024 11:35 AM ESTA Body Mass Index follow-up plan has been documented for the mqugnmg9006/03/2025 5:48 PM ESTdocumented as of this encounter Care Teams Team MemberRelationshipSpecialtyStart DateEnd Date Jimmie Demarco DO [address] [facility] [address] PCP - GeneralFamily Medicine10/15/23documented as of this encounter
--- OUTSIDE RECORDS SUMMARY | 2025-06-05 13:56 | XMS_ITS | Encounter Summary ---
Author Organization [facility] [email or web address] [facility] tem Address [id number] [address] [place] [address] Care Team Providers Care Drawer Liner Name Role Phone Jimmie Demarco DO Primary Care Provider + [phone] Reason for Visit * ReasonCommentsMed Refill Encounter Details DateTypeDepartmentCare Team (Latest Contact Info)Vntctzhdnsa69/25/2025[facility]ill [facility] [address] [place] [address] Jimmie Demarco DO [address], [place] [address] Social History Tobacco UseTypesPacks/DayYears UsedDateSmoking Tobacco: TxhizlVzeenqtyqs738.9 2014 - 1978Smokeless Tobacco: NeverAlcohol UseStandard Drinks/WeekCommentsYes0 (1 standard drink = 0.6 oz pure alcohol)socialPHQ-2AnswerDate RecordedTotal Swkyr347Exercise Vital SignAnswerDate RecordedOn average, how many days [...] or from getting things needed for daily living?No03/15/2025Housing InstabilityAnswerDate RecordedAre you worried or concerned that in the next two months you may not have stable housing that you own, rent or stay in as a part of a household?No10/15/2023hildcareAnswer Date RecordedDo problems getting assistant child care teacher 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 to work or study?No10/15/2023EmploymentAnswerDate RecordedDo you need help finding a local career center and/or a training program?No08/31/2024Hunger ScreeningAnswerDate RecordedWithin the past 12 months we worried whether our food would run out before we got money to buy more.Never True04/05/2025Within the past 12 months the food we bought just didn't last and we didn't have money to get more.Never True04/05/2025CommentsUnknownSex and Gender InformationValueDate RecordedSex Assigned at BirthNot on fileLegal GhpXxmefa66/28/2024 1:39 PM EDT Gender IdentityNot on fileSexual OrientationNot on filedocumented as of this encounter Plan of Treatment DateTypeDepartmentCare Team (Latest Contact Info)Krimgbvecyu45/16/2025 4:45 PM ESTOffice Visit [facility] [address] [place] [address] Jimmie Demarco DO [address], [facility] [place] [address] documented as of this encounter Visit Diagnoses Not on filedocumented in this encounter Additional Health Concerns AssessmentNoted TimePHQ-9 Depression Total Score: 8:31 AM EDTA Body Mass Index follow-up plan has been documented for the suggdpw0104/05/2025 2:05 PM EDTdocumented as of this encounter Care Teams Team MemberRelationshipSpecialtyStart DateEnd Date Jimmie Demarco DO [address], [facility] [place] [address] PCP - GeneralFamily Medicine4/16/24documented as of this encounter
--- OUTSIDE RECORDS SUMMARY | 2025-06-05 13:56 | XMS_ITS | Encounter Summary ---
Author Organization [employer] Sys tem Address [facility] [place]-[id number] [address] [place] [address] Care Team Providers Care Manager Placement Name Role Phone Jimmie Demarco Primary Care Provider + [phone] Encounter Details DateTypeDepartmentCare Team (Latest Contact Info)Vjyrnqcsbyj99/02/2025Telephone [facility] [address] [place] [address] Vanessa Garcia CMA Social History Tobacco UseTypesPacks/DayYears UsedDateSmoking Tobacco: EbcifeVhrzdfagjf158.9 2014 - 1978Smokeless Tobacco: NeverAlcohol UseStandard Drinks/WeekCommentsYes0 (1 standard drink = 0.6 oz pure alcohol)socialPHQ-2AnswerDate RecordedTotal Xgxlj635Exercise Vital SignAnswerDate RecordedOn average, how many days [...] of a household?No10/15/2023hildcareAnswer Date RecordedDo problems getting early childhood education 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 She states it is getting worse. Where would you like me to fit her in at? * Telephone Encounter - Vanessa Garcia CMA - 06/01/2025 5:03 PM EST Patient scheduled documented in this encounter Plan of Treatment DateTypeDepartmentCare Team (Latest Contact Info)Sxjdunsgzfe02/16/2025 4:45 PM ESTOffice Visit [facility] [address] [place] [id number] Jimmie Demarco DO [address] [place] [address] documented as of this encounter Visit Diagnoses Not on filedocumented in this encounter Additional Health Concerns AssessmentNoted TimePHQ-9 Depression Total Score: 8:31 AM EDTA Body Mass Index follow-up plan has been documented for the ewaalwj3004/05/2025 2:05 PM EDTdocumented as of this encounter Care Teams Team MemberRelationshipSpecialtyStart DateEnd Date Jimmie Demarco DO [address] [facility], [place] [address] PCP - GeneralFamily Medicine10/15/23documented as of this encounter
--- OUTSIDE RECORDS SUMMARY | 2025-06-05 13:56 | XMS_ITS | Encounter Summary ---
Author Organization [facility] [employer] [facility] tem Address [id number] [address] [place] [address] Care Team Providers Care Java J2Ee Technical Lead Name Role Phone Jimmie Demarco DO Primary Care Provider + [phone] Reason for Visit * ReasonCommentsMed Refill Encounter Details DateTypeDepartmentCare Team (Latest Contact Info)Tfrozyendol28/27/2025Refill [facility] [address] [place] [address] Jimmie Demarco DO [address], [place] [address] Anxiety Social History Tobacco UseTypesPacks/DayYears UsedDateSmoking Tobacco: JvbjcvKjlpqlatwi916.9 2014 - 1978Smokeless Tobacco: NeverAlcohol UseStandard Drinks/WeekCommentsYes0 (1 standard drink = 0.6 oz pure alcohol)socialPHQ-2AnswerDate RecordedTotal Skuib379Exercise Vital SignAnswerDate RecordedOn average, how many days [...] of a household?No10/15/2023hildcareAnswer Date RecordedDo problems getting children's author 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 to work [...] InformationValueDate RecordedSex Assigned at BirthNot on fileLegal MjfShrjhp02/28/2024 1:39 PM EDT Gender IdentityNot on fileSexual OrientationNot on filedocumented as of this encounter Plan of Treatment DateTypeDepartmentCare Team (Latest Contact Info)Yzflrfrrvjj38/16/2025 4:45 PM ESTOffice Visit [facility] [address] [place] [address] Jimmie Demarco DO [address], [facility] [place] [address] documented as of this encounter Visit Diagnoses Diagnosis Anxiety Anxiety state, unspecified documented in this encounter Additional Health Concerns AssessmentNoted TimePHQ-9 Depression Total Score: 8:31 AM EDTA Body Mass Index follow-up plan has been documented for the nxzoyoi1004/05/2025 2:05 PM EDTdocumented as of this encounter Care Teams Team MemberRelationshipSpecialtyStart DateEnd Date Jimmie Demarco DO [address], [facility] [place] [address] PCP - GeneralFamily Medicine10/15/23documented as of this encounter
--- OUTSIDE RECORDS SUMMARY | 2025-06-05 13:56 | XMS_ITS | Clinical Summary ---
Author Organization [facility] Address [address] [place] [address] Care Team Providers Care Supervisor Grips Name Role Phone Unavailable Primary Care Provider Unavailabl e Social History Tobacco UseTypesPacks/DayYears UsedDateSmoking Tobacco: Never Assessed CommentsUnknownSex and Gender InformationValueDate RecordedSex Assigned at Not on fileLegal SrmEjcupn22/26/2014 3:47 PM EDTGender IdentityNot on fileSexual OrientationNot on file Plan of Treatment Not on file
--- OUTSIDE RECORDS SUMMARY | 2025-06-05 13:56 | XMS_ITS | Encounter Summary ---
Author Organization [facility] Sys tem Address [facility]-[id number] [address] [place] [address] Care Team Providers Care Beam Dyer Operator Name Role Phone Jimmie Demarco Primary Care Provider + [phone] Reason for Visit * ReasonOnset DateCommentsColon Cancer Cwqxsadir21/25/2025 Encounter Details DateTypeDepartmentCare Team (Latest Contact Info)Dvasmgblbfr58/25/2025[facility]phone [facility] [address] [place] [address] Arelis Jensen CMA Colon Cancer Screening Social History Tobacco UseTypesPacks/DayYears UsedDateSmoking Tobacco: YkltwaUukzvlfjzb973.9 2014 - 1977Smokeless Tobacco: NeverAlcohol UseStandard Drinks/WeekCommentsYes0 (1 standard drink = 0.6 oz pure alcohol)socialPHQ-2AnswerDate RecordedTotal Qztpr807Exercise Vital SignAnswerDate RecordedOn average, how many days [...] of a household?No10/15/2023hildcareAnswer Date RecordedDo problems getting director child 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 to work [...] InformationValueDate RecordedSex Assigned at BirthNot on fileLegal GuhEetwgl29/28/2024 1:39 PM EDT Gender IdentityNot on fileSexual OrientationNot on filedocumented as of this encounter Miscellaneous Notes * Telephone Encounter - Arelis Jensen CMA - 05/25/2025 11:52 AM EST Care Coordination Outreach performed to coordinate overdue appointments, testing, and/or follow-up care: Yes Audit/Outreach Date: May 25, 2025 Reason: Colorectal Cancer Screening Method: Telephone and Letter Outreach Attempt: First Outcome: Left Message and Letter Sent Next PCP Appointment: N/A Tests/Referrals Pended: N/A Resources/Education Provided: Additional Comments: Left message for patient to contact career placement services counselor. Patient is overdue with cologuard order. Will send letter to patient. documented in this encounter Plan of Treatment DateTypeDepartmentCare Team (Latest Contact Info)Rpqynlqpqhn80/16/2025 4:45 PM ESTOffice Visit [facility] [address] [place] [address] Jimmie Demarco, [address], [place] [address] documented as of this encounter Visit Diagnoses Not on filedocumented in this encounter Additional Health Concerns AssessmentNoted TimePHQ-9 Depression Total Score: 8:31 AM EDTA Body Mass Index follow-up plan has been documented for the zzjreaw5304/05/2025 2:05 PM EDTdocumented as of this encounter Care Teams Team MemberRelationshipSpecialtyStart DateEnd Date Jimmie Demarco DO [address] [facility] [place] [address] PCP - GeneralFamily Medicine10/15/23documented as of this encounter
--- OUTSIDE RECORDS SUMMARY | 2025-06-05 13:56 | XMS_ITS | Encounter Summary ---
Author Organization [employer] tem Address [id number] [address] [place] [address] Care Team Providers Care Mathematical Technician Name Role Phone Jimmie Demarco Primary Care Provider + [phone] Reason for Visit * ReasonOnset ClpyLiwankyiOeuxmwlu35/05/2025 Encounter Details DateTypeDepartmentCare Team (Latest Contact Info)Girsttgbhmh45/05/2025Nurse Triage [facility] [address] [place] [id number] Kobe Pinzon RN Social History Tobacco UseTypesPacks/DayYears UsedDateSmoking Tobacco: ItkyebJwcdvduecr878.9 2014 - 1977Smokeless Tobacco: NeverAlcohol UseStandard Drinks/WeekCommentsYes0 (1 standard drink = 0.6 oz pure alcohol)socialPHQ-2AnswerDate RecordedTotal Qaxos9663/04/2025Exercise Vital SignAnswerDate RecordedOn average, how many days [...] part of a household?No10/15/2023hildcareAnswerDate RecordedDo problems getting 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 childcare 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 She has increased suicide plan and has dosedherself with an Ativan and depression medication. She is resting now. Patient's daughter is wantingto call Dr. Demarco and let him know about the medication effects. Reason for Disposition [1] Patient is not threatening suicide now BUT [2] has a suicide PLAN (e.g., overdose, gunshot) andACCESS (e.g., collecting pills, gun in house) Protocols used: Suicide Nzbmjhde-Q-ED Per protocol patient was directed to the ED to be seen. Caller stated that another doctor or going to the ED will just make things worse. She believes her mother has Dr Demarco's cell and will try tofind it. documented in this encounter Plan of Treatment DateTypeDepartmentCare Team (Latest Contact Info)Rtdjrwcyltt95/16/2025 4:45 PM ESTOffice Visit [facility] [address] [place] [address] Jimmie Demarco DO [address] [facility] [place] [address] documented as of this encounter Visit Diagnoses Not on filedocumented in this encounter Additional Health Concerns AssessmentNoted TimePHQ-9 Depression Total Score: 14108/04/2024 11:35 AM ESTA Body Mass Index follow-up plan has been documented for the yildvln9306/03/2025 5:48 PM ESTdocumented as of this encounter Care Teams Team MemberRelationshipSpecialtyStart DateEnd Date Jimmie Demarco DO [address] [facility] [place] [address] PCP - GeneralFamily Medicine10/15/23documented as of this encounter
--- OUTSIDE RECORDS SUMMARY | 2025-06-05 13:57 | XMS_ITS | Clinical Summary ---
Author Organization [facility] Address [address], [address] [place] [address] Care Team Providers Care Assistant Counsel Name Role Phone Unavailable Primary Care Provider Unavailabl e Allergies Active AllergyReactionsCriticalityNoted DateCommentsEnvironmental/Seasonal StkklxiBohkbt20/22/2020 ragweed Peanut-Containing Drug UekqevaySyvdcxapitfYfxg85/22/2020 Tree nuts TramadolHives,ZxwzzygArj34/08/2021Tramadol VluOdexJak84/22/2020 Medications MedicationSigDispense QuantityRefillsLast FilledStart DateEnd DateStatus EPINEPHrine (EPIPEN) 0.3 MG/0.3ML SOAJ injection Inject 0.3 mLs into the muscle as needed Use as directed for allergic reaction Active pregabalin (LYRICA) 50 MG capsule Take 1 capsule by mouth 3 times daily. Pain mnxhfujgxa52/16/2021ctive HYDROcodone-acetaminophen (NORCO) 5-325 MG per tablet Take 1 tablet by mouth every 6 hours as needed.Active albuterol sulfate HFA (PROVENTIL;VENTOLIN;PROAIR) 108 (90 Base) MCG/ACT inhaler Indications:Mild intermittent asthma, unspecified whether complicatedINHALE 2 PUFFS INTO THE LUNGSEVERY 6 HOURS NEEDED FOR WHEEZING 18 g 07/11/2022ctive hydrOXYzine pamoate (VISTARIL) 25 MG capsule Take 1 capsule by mouth 3 times daily as needed for Anxiety 90 capsule 5002/26/2023ctive pantoprazole (PROTONIX) 40 MG tablet Indications:Gastroesophageal reflux disease, unspecified whether esophagitis presentTAKE 1 TABLET BY MOUTH EVERY MORNING BEFORE BREAKFAST 90 tablet ctive escitalopram (LEXAPRO) 20 MG tablet Indications:AnxietyTAKE 1 TABLET BY MOUTH DAILY 90 tablet ctive vitamin D (VITAMIN D3) 76080 UNIT CAPS Take 1 capsule by mouth once a week 12 capsule ctive Semaglutide-Weight Management (WEGOVY) 0.25 MG/0.5ML SOAJ SC injection Indications:BMI 40.0-44.9, adult ([facility])Inject 0.25 mg into the skin every 7 days 2 mL 09/18/2023ctive Semaglutide-Weight Management (WEGOVY) 0.5 MG/0.5ML SOAJ SC injection Indications:BMI 40.0-44.9, adult ([facility]),Class 3 severe obesity due to excess calories with body mass index (BMI) of 40.0 to 44.9 in adult, unspecified whether serious comorbidity present ([facility])Inject 0.5 mg into the skin every 7 days 2 mL 10/03/2023ctive tiZANidine (ZANAFLEX) 4 MG tablet Indications:Chronic bilateral low back pain without sciaticaTAKE 1 TABLET BY MOUTH 3 TIMES DAILY 90 tablet ctive Active Problems ProblemNoted DateDiagnosed ImbdJavxfbtvkn37/16/2024BMI 40.0-44.9, adult 04/15/2024Obesity, Class III, BMI 40-49.9 (morbid obesity)4Chronic bilateral low back pain without ybzkcchh23/20/2022Migraine without aura and without status migrainosus, not wjthrmegeav59/08/2021hift work sleep disorder 1Asthma, mild mehahyiovxcy05/22/2020Major depressive omkrctsm57/22/2020 Other headache hgzsxfze31/22/2020Generalized anxiety otfnyjci93/22/2020 Gastroesophageal reflux omhsdcz3004/21/2020Bariatric surgery ygrjrt2304/21/2020OSA (obstructive sleep apnea)09/21/2015Anxiety Immunizations ImmunizationAdministration DatesNext DueCOVID-19, Inactive, MODERNA BLUE border, Primary or Immunocompromised, (age 12y+)12/07/2020,1Pneumococcal, PCV- 13, PREVNAR 13, (age 6w+), IM, 0.5mL07/01/2004TDaP, ADACEL (age 10y-64y), BOOSTRIX (age 10y+), IM, 0.5mL11/19/2005 Social History Tobacco UseTypesPacks/DayYears UsedDateSmoking Tobacco: FormerCigarettesQuit: 09/2014Smokeless Tobacco: Never Tobacco Cessation:Counseling Given: Not Answered Alcohol UseStandard Drinks/WeekCommentsYes0 (1 standard drink = 0.6 oz pure alcohol)AUDIT-CAnswerDate RecordedQ1: How often do you have a drink containing alcohol?Never03/15/2024Q2: How many drinks containing alcohol do you have on a typical day when you are drinking?Patient does not drink03/15/2024Q3: How often do you have six or more drinks on one occasion?Never03/15/2024HQ-2AnswerDate RecordedPHQ-9 Total Wreyk081regnantCommentsUnknownSex and Gender InformationValueDate RecordedSex Assigned at BirthNot on fileLegal SexFemale 08/10/2012 9:20 AM ESTGender IdentityNot on fileSexual OrientationNot on file Last Filed Vital Signs Vital SignReadingTime TakenCommentsBlood Ngamawbu471/7509 6:41 PM EDT Bgnmi989403/15/2024 6:41 PM DUMOsglzgqapko43.6 ??C (97.8 ??F)03/15/2024 6:41 PM EDTRespiratory Rqtm100303/15/2024 6:41 PM EDTOxygen Clcoihrigr13%03/15/2024 6:41 PM EDTInhaled Oxygen Concentration--Kxabdl801.3 kg (265 lb 3.2 oz)08/01/2023 2:51 PM HTKUfjako153.7 cm (5' 8 )08/01/2023 2:51 PM ESTBody Mass Index40.32 08/01/2023 2:51 PM EST Plan of Treatment Health MaintenanceDue DateLast DoneCommentsHIV fpjaoz7401/02/1981Hepatitis C usdrkd2401/03/1984Hepatitis B vaccine (1 of 3 - 19+ 3-dose series)1985Pap smear1987Cervical cancer hzlzpz1801/03/1996HPV (without or with Pap) 01/03/1996Pneumococcal 50+ years Vaccine (2 of 2 - PPSV23, PCV20, or PCV21) Colonoscopy2011Colorectal Cancer Hhtnsf0801/02/2011 FIT/FOBT: Average risk2011Fecal-DNA (Cologuard): Average risk2011 Sigmoidoscopy/CT awnozuzbothz38/05/2011DTaP/Tdap/Td vaccine (2 - Td or Tdap) Shingles vaccine (1 of 2)01/03/2016Breast cancer screen Depression Bfkvnjwcrz56/01/033982/07/2023Flu vaccine (#1) 5COVID-19 Vaccine (3 - season)506/03/2021, 11/09/2020 Hxvknr14/21/196260/, 03/22/2022, 03/23/2014Pneumococcal 0-49 years WzqevnbIrqpmmmxwipb61/01/2005Diabetes sbnhdnEitjgedhkndi20/21/2024Hepatitis A vaccineAged OutNo longer eligible based on patient's age to complete this topic Hib vaccineAged OutNo longer eligible based on patient's age to complete this topicMeningococcal (ACWY) vaccineAged OutNo longer eligible based on patient's age to complete this topicMeningococcal B vaccineAged OutNo longer eligible based on patient's age to complete this topicPolio vaccineAged OutNo longer eligible based on patient's age to complete this topic Procedures Procedure NamePriorityDate/TimeAssociated DiagnosisCommentsHEMOGLOBIN X0JAaguqkr 08/21/2023 2:51 PM EST Encounter for wellness examination in adult LIPID WCFGVRbxwffb38/21/2024 2:51 PM EST Encounter for wellness examination in adult NICK DIGITAL SCREEN W OR WO CAD CNCBKJTLVTbhxpdu65/10/2014 3:39 PM EDT from Last 3 Months or Most Recently Relevant to Health Maintenance Results * Hemoglobin A1C (08/21/2023 2:51 PM EST)ComponentValueRef RangeTest Method Analysis TimePerformed AtPathologist SignatureHemoglobin A1C5.54.0 - 6.0 % 08/21/2023 2:51 PM ESTMERCY LABORATORIESEstimated Avg Ozxvbkw574gl/dL 08/21/2023 2:51 PM ESTMERCY LABORATORIESComment: The ADA and AACC recommend providing the estimated average glucose result to permit better patient understanding of their HBA1c result. Specimen (Source)Anatomical Location / LateralityCollection Method / Volume Collection TimeReceived TimeBloodBLOOD SPECIMEN / Jmgtvlw4308/21/2023 2:51 PM EST 08/21/2023 2:52 PM EST Narrative Authorizing ProviderResult TypeResult StatusRobin Amber HAIR SPINNING MACHINE OPERATOR - CNPCHEMISTRY ORDERABLESFinal ResultPerforming OrganizationAddressCity/State/ZIP CodePhone Number [facility] [address] [place] [address], [facility] [phone] [facility] [address] [id number], [facility] [phone] * (ABNORMAL) Lipid Panel (08/21/2023 2:51 PM EST)ComponentValueRef RangeTest MethodAnalysis TimePerformed AtPathologist KfvxuyglfKqyblogkdtj539<200 mg/dL 08/21/2023 2:51 PM ESTMERCY LABORATORIESComment: Cholesterol Guidelines: <200 Desirable 200-240 ??Borderline >240 Undesirable HDL53>40 mg/dL08/21/2023 2:51 PM ESTM[facility]CY LABORATORIESComment: HDL Guidelines: <40 Undesirable 40-59 ?Borderline >59 Desirable LDL Ehhwxgpwenu650 - 130 mg/dL08/21/2023 2:51 PM ESTMERCY LABORATORIESComment: LDL Guidelines: <100 Desirable 100-129 ?? Near to/above Desirable 130-159 ?? Borderline >159 Undesirable Direct (measured) LDL and calculated LDL are not interchangeable tests. Chol/HDL Ratio3.2< 2:51 PM ESTMERCY LABORATORIESComment:Triglycerides 186(H)<150 mg/dL08/21/2023 2:51 PM ESTMERCY LABORATORIESComment: Triglyceride Guidelines: <150 Desirable 150-199 ??Borderline 200-499 ??High >499 Very high Based on AHA Guidelines for fasting triglyceride, March 2012. Specimen (Source)Anatomical Location / LateralityCollection Method / Volume Collection TimeReceived TimeBloodBLOOD SPECIMEN / Pkmpgue6008/21/2023 2:51 PM EST 08/21/2023 2:52 PM EST Narrative Authorizing ProviderResult TypeResult StatusRobin Amber HAIR SPINNING MACHINE OPERATOR - CNPCHEMISTRY ORDERABLESFinal ResultPerforming OrganizationAddressCity/State/ZIP CodePhone Number [facility] [address] [place] [address], [facility] [phone] [facility] [address] [place] [address], [facility] [phone] * NICK Digital Screen Bilateral (04/09/2014 3:39 PM EDT)Anatomical Region LateralityModalityBreastBilateralMammographySpecimen (Source)Anatomical Location / LateralityCollection Method / VolumeCollection TimeReceived Time 04/09/2014 3:39 PM EDT Narrative 04/09/2014 5:07 PM EDT FINAL Procedure: ??TMM ??Apr 09 2014 ??3:39PM [id number] ??MAMMOGRAM DIGITAL SCREEN BILAT Reason for Exam: ??^SCREENING FULL RESULT: ?? REPORT: BILATERAL DIGITAL SCREENING MAMMOGRAM WITH ASSISTANCE OF CAD INDICATION: Screening FINDINGS: This is a baseline examination. ??Scattered fibroglandular densities in both breasts. No suspicious calcifications, mass lesions, architectural distortion or skin thickening. IMPRESSION: ? No mammographic evidence of malignancy. (CATEGORY 1 - ACR BI-RADS: NEGATIVE) Report Transcribed by: [facility] on Apr 09 2014 ??5:07P Read by: ??NEELAM HEADLEY M.D. ??[id number] on Apr 09 2014 ??5:07P Electronically Signed by: ??DR. NEELAM HEADLEY M.D. on: ??Apr 09 2014 ?? 5:07P ? Procedure Note Neelam Headley MD - 04/09/2014 FINAL Procedure: TMM Apr 09 2014 3:39PM [id number] MAMMOGRAM DIGITAL SCREEN BILAT Reason for Exam: ^SCREENING FULL RESULT: REPORT: BILATERAL DIGITAL SCREENING MAMMOGRAM WITH ASSISTANCE OF CAD INDICATION: Screening FINDINGS: This is a baseline examination. Scattered fibroglandular densities in both breasts. No suspicious calcifications, mass lesions, architectural distortion or skin thickening. IMPRESSION: No mammographic evidence of malignancy. (CATEGORY 1 - ACR BI-RADS: NEGATIVE) Report Transcribed by: [facility] on Apr 09 2014 5:07P Read by: NEELAM HEADLEY M.D. [id number] on Apr 09 2014 5:07P Electronically Signed by: DR. NEELAM HEADLEY M.D. on: Apr 09 2014 5:07P Authorizing ProviderResult TypeResult StatusDidarius Lamas HAIR SPINNING MACHINE OPERATOR - CNPIMG MAMMOGRAPHY ORDERABLESFinal Result from Last 3 Months or Most Recently Relevant to Health Maintenance Insurance MemberSubscriberPlan / Payer (Effective 2018-Present)Name:JacobeliotSakshi alex Relation to Subscriber:SelfName:Sakshi Hightower Payer ID:Not on file Type:Not on file Address: [address] [id number]
--- OUTSIDE RECORDS SUMMARY | 2025-06-05 13:57 | XMS_ITS | Clinical Summary ---
Author Organization [employer] Address [address] [place] [address] Care Team Providers Care Pantry Chef Name Role Phone Jimmie Demarco DO Primary Care Provider [phone] Allergies Active AllergyReactionsCriticalityNoted DateCommentsAlmond MealAnaphylaxisHigh 08/10/2015 States she has EPI pen Gramineae WgzpsymKbamlknIlprsn18/22/2020 ragweed Peanut-Containing Drug BarwstvwRqmzjapbzztZonu15/22/2020 Tree nuts TramadolAnaphylaxis,Hives,Itching,YmeaDsjb30/15/2001 Other Reaction(s): Intolerance Heart racing Medications MedicationSigDispense QuantityRefillsLast FilledStart DateEnd DateStatus Albuterol 108 (90 Base) MCG/ACT Aero Soln inhaler Inhale 2 puffs.Active Cholecalciferol (Vitamin D3) 1.25 MG (38226 UT) capsule Take 1 capsule by mouth once a week.Active EPINEPHrine 0.3 MG/0.3ML Solution Auto-injector injection Inject 0.3 mL intramuscularly.Active escitalopram 20 MG tablet Take 1 tablet by mouth daily every morning.5Active LORazepam 0.5 MG tablet Take 1 tablet by mouth 2 times daily as needed for Anxiety.Active Ondansetron 8 MG Tab Dispersible tablet Take 1 tablet by mouth Every 8 hours as needed.5Active Pantoprazole [address] tablet DR Take 1 tablet by mouth.4Active Pregabalin 50 MG capsule Take 1 capsule by mouth 3 times daily.Active tiZANidine 4 MG tablet Take 1 tablet by mouth every 8 hours as needed for Muscle spasms.Active Semaglutide,0.25 or 0.5MG/DOS, 2 MG/3ML Solution Pen-injector Inject under the skin once a week.Active Misc Natural Products (TURMERIC, CURCUMIN, PO) Take by mouth daily.Active HERBAL PRODUCT Replace this text with the name of the herbal productActive HERBAL PRODUCT daily. Replace this text with the name of the herbal productActive acetaminophen 325 MG Suppository Insert 1 suppository rectally every 4 hours as needed for Mild Pain.Active Acetaminophen 325 MG tablet Take 2 tablets by mouth every 4 hours as needed for Mild Pain. 50 tablet tive Docusate 100 MG capsule Take 1 capsule by mouth 2 times daily. 60 capsule 04/07/2025tive apixaban (Eliquis) 2.5 MG tablet Take 1 tablet by mouth every 12 hours. 70 tablet 04/07/2025tive Multiple Vitamin (Multivitamin Adult) tablet Take 1 tablet by mouth daily. 30 tablet 04/07/2025tive omeprazole [address] capsule Take 1 capsule by mouth daily. 30 capsule 04/07/2025tive naloxone 4 MG/0.1ML 1 spray by Nasal route once for 1 dose. [place] into the nose as directed. Call 911. If no response in 2 minutes use a new nasal spray in other nostril. Repeat until help arrives. 1 Each 04/07/2025tive Potassium chloride 20 MEQ Tab CR tablet Take 1 tablet by mouth 2 times daily with meals for 3 days. 6 tablet 04/17/2025tive Promethazine 25 MG tablet Take 1 tablet by mouth every 6 hours as needed (Nausea/Vomiting). 10 tablet tive Amoxicillin 500 MG capsule Take 4 capsules 1 hour before procedure 8 capsule /6Active hydroCODone-acetaminophen 5-325 MG tablet Indications:History of total knee arthroplasty, leftTake 1 tablet by mouth every 8 hours as needed for Moderate Pain for up to 7 days. 21 tablet 05/10/2025tive oxyCODONE 5 MG tablet Indications:Acute postoperative pain of knee5-10 mg every 6 hours as needed for moderate to severe pain Ween as tolerated 30 tablet /03/2025Discontinued hydroCODone-acetaminophen 5-325 MG tablet Indications:History of total knee arthroplasty, leftTake 1-2 tablets by mouth 2 times daily as needed for up to 7 days. 28 tablet 5107/10/2024DiscontinuedHospital, Clinic, or Other Facility Administered MedicationOrdered DoseRouteFrequencyStart DateEnd DateStatus triamcinolone (KENALOG-40) injection 40 mg Indications:Primary osteoarthritis of right knee40 mgIXONCE WTYOEP8105/19/2025 05/19/2025Ended Lidocaine 1% (PF) (XYLOCAINE MPF) 1 % injection 5 mL Indications:Primary osteoarthritis of right knee5 mLIXONCE GOOURT2605/19/2025 05/19/2025Ended Active Problems No known active problems Encounters DateTypeDepartmentCare CajiSieaolxduhf96/19/2025 3:00 PM ESTOffice Visit [facility] [address] [place] [address] Елена Hughes Right knee pain, unspecified chronicity (Primary Dx); Primary osteoarthritis of right knee05/19/2025 2:34 PM EST - 05/19/2025 11:59 PM ESTHospital Encounter [address] [phone] Елена Hughes Discharge Disposition: Home or Self Care05/10/2025Telephone [facility] [address] [place] [address] Halie Ruggiero LPN Medication Fyjrjze0405/03/2025Telephone [facility] [address] [place] [address] Halie Ruggiero LPN Medication Zedpcxh7404/27/2025 9:20 AM EDTOffice Visit [facility] [address] [place] [address] Елена Hughes History of total knee arthroplasty, left (Primary Dx); Acute postoperative pain of knee04/27/2025 8:55 AM EDT - 04/27/2025 11:59 PM EDT Hospital Encounter [facility] [address] [place] [phone] Елена Hughes Discharge Disposition: Home or Self Care04/19/2025Telephone [facility] [address] [place] [address] Halie Ruggiero LPN Knee Pain; Medication Crfhdzyvww65/18/2025 12:25 AM EDT - 04/17/2025 4:14 AM EDT Emergency [facility] [address] [facility] [place] [address] Jigar Reynolds MD Discharge Disposition: Home or Self Care04/17/20258277Crzlcb17/13/2025[facility] [address] [place] [address] Miriam Dang Medication Sfkduuxjwn18/09/20[address] [address] [place] [phone] Taylor Leyva RN Post-Discharge Follow Up04/07/2025 9:31 AM EDTAnesthesia Event [facility] [address] [place] [address], [place] [phone] Fiona Love, VINEGAR MAKER-BULLET SLUG CASTING MACHINE OPERATOR 04/07/2025 9:00 AM EDT - 04/07/2025 10:15 AM EDTSurgery [facility] [address] [place] [address], [place] [phone] Emeterio Ledesma MD ARTHROPLASTY KNEE TOTAL04/07/2025 6:16 AM EDT - 04/07/2025 7:12 PM EDTHospital Encounter [facility] [address] [place] [address], [place] [phone] Emeterio Ledesma MD Osteoarthritis of left knee, unspecified osteoarthritis type Discharge Disposition: Home Health Care Svc1[facility] [address] [place] [phone] Taylor Leyva RN Follow-up03/30/2025[facility] [address] [place] [address] Emeterio Ledesma MD Returning Phone Call03/18/2025[facility] [address] [place] [address] Dalila Chavez Surgeryfrom Last 3 Months Family History Medical HistoryRelationNameCommentsDementiaMotherRelationNameStatusComments FatherDeceasedMotherAlive Social History Tobacco UseTypesPacks/DayYears UsedDateSmoking Tobacco: FormerCigarettes Smokeless Tobacco: Never Tobacco Cessation:Counseling Given: Not Answered Comments:Quit 10 years ago Alcohol UseStandard Drinks/WeekCommentsYes0 (1 standard drink = 0.6 oz pure alcohol)occassionalAUDIT-CAnswerDate RecordedQ1: How often do you have a drink containing alcohol?Never04/17/2025Q2: How many drinks containing alcohol do you have on a typical day when you are drinking?Patient does not drink04/17/2025 Frequency of Binge DrinkingNot on file04/17/2025CommentsUnknownSex and Gender InformationValueDate RecordedSex Assigned at BirthNot on fileLegal Sex Gjvskv1208/03/2012 8:42 AM ESTGender AprvtquhPnveia07/27/2025 11:46 AM EDTSexual FfkushmrfnwZiwaugof77/27/2025 11:46 AM EDT Last Filed Vital Signs Vital SignReadingTime TakenCommentsBlood Eizchacj886/8904/17/2025 4:00 AM EDT Hjypl429304/17/2025 4:00 AM SMVAenuvgnuljx18.9 ??C (98.5 ??F)05/19/2025 2:50 PM ESTRespiratory Lkpb045504/17/2025 4:00 AM EDTOxygen Mzpynqrqaq745%04/17/2025 4:00 AM EDTInhaled Oxygen Concentration--Eetcfc24.3 kg (210 lb 3.2 oz)05/19/2025 2:50 PM PTQVrzjdz357.7 cm (5' 8 )05/19/2025 2:50 PM ESTBody Mass Index31.9605/19/2025 2:50 PM EST Plan of Treatment DateTypeDepartmentCare Team (Latest Contact Info)Fgfodyqzlym66/19/2026 2:00 PM ESTOffice Visit [facility] [address] [place] [address] Cayden Mcdaniel, VINEGAR MAKER-PARQUET FLOOR LAYER'S HELPER [address] [place] [address] Health MaintenanceDue DateLast DoneCommentsHEPATITIS C VIRUS OEKQJQRWU1966 HIV SCREENING TPCZYZFUUX25/05/1981HEP B VACCINE (1 of 3 - 19+ 3-dose series) 1985CERVICAL CANCER SCREENING KQHRDPKQME31/05/1987LIPID SCREENING 2006COLORECTAL CANCER SCREENING AEYNREHRFP96/05/2011MAMMOGRAM SCREENING HDBGSZGEVX21PNEUMOCOCCAL VACCINE SERIES (2 of 2 - PCV20 or PCV21)COVID-19 VACCINE (3 - 2024- season)2025 12/07/2020, 11/09/2020INFLUENZA VACCINE (#1)2025ZOSTER (SHINGLES) VACCINE (2 of 2)509/0958PDBALQI25/15/40656403/15/2025, 11/19/2005PNEUMOCOCCAL VACCINE UPSDLRKoomfbxavnht52/01/2005TDAP (ADULT)Ucskwqkwi60/15/2025, 11/19/2005 Medical Devices ImplantedTypeAreaManufacturerDevice IdentifierShelf Expiration DateModel / Serial / LotAttune Patella Medialized Dome 32mm Cemented Aox Implanted:Qty: 1 on 04/07/2025 by Emeterio Ledesma MD at [facility] Joint Left: KneeDEPUY ORTHOPAEDICS INC10/28/[id number] / / [id number] Femoral Cruciate Retaining Size 6 Left Cemented Implanted:Qty: 1 on 04/07/2025 by Emeterio Ledesma MD at [facility] Joint Left: KneeDEPUY ORTHOPAEDICS INC12/28/26288220-25-911 / / [id number] Knee System Tibial Base Fixed Bearing Size 5 Cemented Implanted:Qty: 1 on 04/07/2025 by Emeterio Ledesma MD at [facility] Joint Left: KneeDEPUY ORTHOP[employer]ED[employer] INC04/30/[id number] / / [id number] Knee System Tibial Insert Fixed Bearing Cruciate Retaining Size 6 7mm Aox Implanted:Qty: 1 on 04/07/2025 by Emeterio Ledesma MD at [facility] Joint Left: KneeDEPUY ORTHOP[employer]ED[employer] INC07/31/[id number] / / [id number] R 1x40 Implanted:Qty: 1 on 04/07/2025 by Emeterio Ledesma MD at [facility]: Knee [id number] / / [id number] R 1x40 Implanted:Qty: 1 on 04/07/2025 by Emeterio Ledesma MD at [facility]: Knee [id number] / / [id number] Procedures Procedure NamePriorityDate/TimeAssociated DiagnosisCommentsPR DRAIN/INJECT LARGE JOINT/BURSA SAXHNOEXXNPLrcghys18/19/2025 3:00 PM EST Primary osteoarthritis of right knee CT ABDOMEN/PELVIS WITH NKBWMPWOHAZX73/18/2025 1:49 AM EDT COMPREHENSIVE METABOLIC ICWTPXAPE11/18/2025 12:35 AM EDT HC CBC EDIFF & VQIWGEMHEWMM87/18/2025 12:35 AM EDT LACTATE, RXMMAXURC82/18/2025 12:35 AM EDT ARRAKAQXPQKHI09/18/2025 12:35 AM EDT PROTIME-KVRDRFA4604/17/2025 12:35 AM EDT GQQOVAC4704/17/2025 12:35 AM EDT XR KNEE LEFT 1-2 YKHYUCbbuxcd21/08/2025 12:42 PM EDT PROCEDURE - REGIONAL KQSOYNUILJJvsxpza64/08/2025 12:22 PM EDT PROCEDURE NOTE (SCANNED)Bljfvmw4904/07/2025 12:15 PM EDTCARDIAC RHYTHMRoutine 04/07/2025 12:13 PM EDTORDERS (SCAN)Eoxfoma1804/07/2025 12:09 PM EDTSURGICAL PATHOLOGY TIVUBBANjkznwr44/08/2025 10:22 AM EDT Osteoarthritis of left knee, unspecified osteoarthritis type PROCEDURE - WTCQOSBOLNWcqmbrd13/08/2025 9:37 AM EDT VT CPTR-ASST SURGICAL NAVIGATION IMAGE-LESS04/07/2025 9:30 AM EDT Osteoarthritis of left knee, unspecified osteoarthritis type VT ARTHRP KNE CONDYLE&PLATU MEDIAL&LAT IWBNHKBUEPWJ64/08/2025 9:30 AM EDT Osteoarthritis of left knee, unspecified osteoarthritis type HC [facility] TOXICOLOGY FHDKPKLEEH80/08/2025 7:12 AM EDT from Last 3 Months Results * VT DRAIN/INJECT LARGE JOINT/BURSA PERFORMABLE (05/19/2025 3:00 PM EST) Anatomical RegionLateralityModalityOther Narrative 05/19/2025 3:00 PM EST Елена Hughes 05/19/2025 4:28 PM LARGE JOINT/BURSA INJECTION AND/OR ASPIRATION: R knee Date/Time: 05/19/2025 3:00 PM Performed by: Елена Hughes Authorized by: Елена Hughes ?? Supporting Documentation Indications: osteoarthritis and pain Procedure Details: Location: knee - R knee Local Anesthetic: ethyl chloride (cold spray) Anesthetic total (ml): 1 spray. Needle size: 21 G Approach: anterolateral Medication Verification: I have personally verified and performed the final check of the medication(s) used in this procedure prior to administration. The following items were included during the verification process for medication(s) administered: drug name, strength, volume, expiration, physical integrity and appearance of the medication(s). Medications administered: 5 mL Lidocaine 1% (PF) 1 %; 40 mg triamcinolone 40 MG/ML Patient tolerance: patient tolerated the procedure well with no immediate complications Comments Aftercare instructions were provided. Consent: Consent: after explanations of the risks, benefits, and alternatives, a verbal consent was obtained. . Preparation: Patient was prepped in the usual sterile fashion. The patient was prepped with Betadine and alcohol. Authorizing ProviderResult TypeResult StatusSamantha M BrocwellBEDSIDE PROCEDURESFinal Result * CT ABDOMEN/PELVIS WITH CONTRAST (04/17/2025 1:49 AM EDT)Anatomical Region LateralityModalityAbdomen, PelvisComputed TomographySpecimen (Source) Anatomical Location / LateralityCollection Method / VolumeCollection Time Received Time04/17/2025 1:29 AM EDT Impressions 04/17/2025 3:16 AM EDT IMPRESSION: 1. Moderate compact feces throughout. Possible constipation. 2. No acute findings or inflammatory change. 3. Prior gastric bypass. Narrative 04/17/2025 3:[address] OF THE ABDOMEN AND PELVIS WITH CONTRAST: 04/17/2025 1:29 AM EDT CLINICAL HISTORY: Abdominal pain. Vomiting. COMPARISONS: None. TECHNIQUE: Thin section axial CT images were obtained from the lung bases to the pubis symphysis. This CT exam was performed using one or more of the following dose reduction techniques: Automated exposure control, adjustment of the mA and/or kV according to patient size, or use of iterative reconstruction technique. Thin section coronal and sagittal images were reconstructed from the axial data set. All images were reviewed and interpreted. CONTRAST: Omnipaque 350, 75 mL IV. FINDINGS: LUNG BASES: No consolidation or pleural fluid. STOMACH: Changes of prior gastric bypass. No hiatal hernia. No complicating features. LIVER: Normal. GALLBLADDER: Mildly distended gallbladder, otherwise negative. No calcified gallstones. BILIARY TREE: No ductal dilatation. PANCREAS: Normal. SPLEEN: Multiple scattered calcified splenic granulomas. Otherwise negative without enlargement. ADRENALS: Normal. KIDNEYS: Normal, without urolithiasis or hydronephrosis. URINARY BLADDER: Grossly unremarkable. PELVIC STRUCTURES: Small calcified uterine fibroid at fundus. Unremarkable reproductive organs for age otherwise. BOWEL: No evidence of obstruction, gross mass, or inflammatory change. There is no significant diverticulosis. There is no evidence of diverticulitis. Compact feces in large bowel. Moderate colonic stool burden. Correlate for constipation. APPENDIX: The appendix is not clearly identified and there are no secondary findings to suggest acute appendicitis. LYMPH NODES: No pathologically enlarged lymph nodes identified. PERITONEUM: No intraperitoneal free air. No free intraperitoneal fluid. MESENTERY: Unremarkable. RETROPERITONEUM: The retroperitoneum is unremarkable. AORTA: Normal in caliber. BODY WALL: No body wall mass. OSSEOUS STRUCTURES: Unremarkable. Procedure Note Rakan Cheema, DO - 04/17/2025 CT OF THE ABDOMEN AND PELVIS WITH CONTRAST: 04/17/2025 1:29 AM EDT CLINICAL HISTORY: Abdominal pain. Vomiting. COMPARISONS: None. TECHNIQUE: Thin section axial CT images were obtained from the lung basesto the pubis symphysis. This CT exam was performed using one or more of the following dose reduction techniques: Automated exposure control,adjustment of the mA and/or kV according to patient size, or use of iterativereconstruction technique. Thin section coronal and sagittal images were reconstructedfrom the axial data set. All images were reviewed and interpreted. CONTRAST: Omnipaque 350, 75 mL IV. FINDINGS: LUNG BASES: No consolidation or pleural fluid. STOMACH: Changes of prior gastric bypass. No hiatal hernia. Nocomplicating features. LIVER: Normal. GALLBLADDER: Mildly distended gallbladder, otherwise negative. Nocalcified gallstones. BILIARY TREE: No ductal dilatation. PANCREAS: Normal. SPLEEN: Multiple scattered calcified splenic granulomas. Otherwisenegative without enlargement. ADRENALS: Normal. KIDNEYS: Normal, without urolithiasis or hydronephrosis. URINARY BLADDER: Grossly unremarkable. PELVIC STRUCTURES: Small calcified uterine fibroid at fundus. Unremarkable reproductive organs for age otherwise. BOWEL: No evidence of obstruction, gross mass, or inflammatory change.There is no significant diverticulosis. There is no evidence of diverticulitis.Compact feces in large bowel. Moderate colonic stool burden. Correlate for constipation. APPENDIX: The appendix is not clearly identified and there are nosecondary findings to suggest acute appendicitis. LYMPH NODES: No pathologically enlarged lymph nodes identified. PERITONEUM: No intraperitoneal free air. No free intraperitoneal fluid. MESENTERY: Unremarkable. RETROPERITONEUM: The retroperitoneum is unremarkable. AORTA: Normal in caliber. BODY WALL: No body wall mass. OSSEOUS STRUCTURES: Unremarkable. IMPRESSION IMPRESSION: 1. Moderate compact feces throughout. Possible constipation. 2. No acute findings or inflammatory change. 3. Prior gastric bypass. Authorizing ProviderResult TypeResult StatusJigar Reynolds MDCT ORDERABLESFinal Result * (ABNORMAL) LACTATE, BLOOD (04/17/2025 12:35 AM EDT)ComponentValueRef RangeTest MethodAnalysis TimePerformed AtPathologist SignatureLACTATE2.6(HH)0.7 - 2.0 mmol/[facility] - [address] [place], [place] [address]Comment: PLEASE REPEAT INITIAL CRITICAL IN 3 HOURS IF ED OR INPATIENT SEPSIS PATIENT Result called to read back by: Bessy DE LA CRUZ ??04/17/2025 @ 01:08 by [facility] Specimen (Source)Anatomical Location / LateralityCollection Method / Volume Collection TimeReceived LoboQbdoa15/18/2025 12:35 AM EDT1 12:39 AM EDT Narrative Authorizing ProviderResult TypeResult StatusJigar Reynolds MDCHEMISTRY ORDERABLESFinal ResultPerforming OrganizationAddressCity/State/ZIP CodePhone Number [address] [place] [phone] * PTT (04/17/2025 12:35 AM EDT)ComponentValueRef RangeTest MethodAnalysis Time Performed AtPathologist NiirhzrxrWJQ47.522.4 - 34.7 SECLAB, OSUComment: CARDIAC AND PE/DVT THERAPUTIC RANGE 69-97 SEC VASCULAR/THREATENED LIMB THERAPUTIC RANGE 80-112 SEC Specimen (Source)Anatomical Location / LateralityCollection Method / Volume Collection TimeReceived JgxoKigfe80/18/2025 12:35 AM EDT1 12:38 AM EDT Narrative Authorizing ProviderResult TypeResult Kimberly Reynolds MDCOAGULATIONFinal ResultPerforming OrganizationAddressCity/State/ZIP CodePhone Number [facility], [facility] [address] [place] [address] * PROTIME-INR (04/17/2025 12:35 AM EDT)ComponentValueRef RangeTest Method Analysis TimePerformed AtPathologist GqiamuuwxAZ25.711.8 - 14.4 SECLAB, OSUINR 0.950.85 - 1.10LAB, OSUComment: 2.0-3.0 THERAPEUTIC RANGE 2.5-3.5 MECHANICAL VALVE RANGE Specimen (Source)Anatomical Location / LateralityCollection Method / Volume Collection TimeReceived GntcDqgzo99/18/2025 12:35 AM EDT1 12:38 AM EDT Narrative Authorizing ProviderResult TypeResult StatusJigar Reynolds MDCOAGULATIONFinal ResultPerforming OrganizationAddressCity/State/ZIP CodePhone Number LAB, [facility] [address] [place] [address] * (ABNORMAL) CBC, EDIF, PLATELET (04/17/2025 12:35 AM EDT)ComponentValueRef RangeTest MethodAnalysis TimePerformed AtPathologist SignatureWBC (WHITE BLOOD COUNT)7.43.6 - 11.0 10*3/[address] StreetRBC3.40(L)4.0 - 5.4 10*6/[address] StreetHEMOGLOBIN (HGB)10.7(L)12.0 - 16.0 G/DL[address]ETHEMATOCRIT (HCT)31.7(L)36.0 - 48.0 % [address]Me Cell Caoxsk98.3 80.0 - 100.0 [address]an Cell HGB31.626.0 - 35.[address] Cell HGB Ledqxyejsxgvy79.927.0 - 37.0 G/DL[address]ETRBC Ecvxobizjhtj48.411.5 - 14.5 %[address]PL[address] NAZZB462(H)130 - 400 10*3/[address]Me Platelet Volume8.27.4 - 11.[address] DIFFERENTIAL TYPEAUTO DIFF%[address]NEUTROPHILS58.137.0 - 75.0 %[address]LYMPHOCYTE26.920.0 - 55.0 %[address]MON[address] %11.0(H)0.0 - 10.0 %[address]EOSINOPHIL %3.70.0 - 11.0 %[address]BASOPH[address] %0.30.0 - 2.0 %[address]Absolute Neutrophil Count4.3 1.4 - 6.5 10*3/[address] LYMPHOCYTES, ABSOLUTE2.01.2 - 3.4 10*3/[address] StreetMONOCYTES, ABSOLUTE0.8(H)0.0 - 0.7 10*3/[address]ABSOLUTE EOSINOPHIL COUNT0.3 0.0 - 0.7 10*3/[address] ABSOLUTE BASOPHIL COUNT0.00.0 - 0.2 10*3/[address]Specpiedmont fayette hospital (Source)Anatomical Location / Laterality Collection Method / VolumeCollection TimeReceived JnikQxivx80/18/2025 12:35 AM EDT1 12:38 AM EDT Narrative Authorizing ProviderResult TypeResult StatusJigar Reynolds MDHEMATOLOGY ORDERABLESFinal ResultPerforming OrganizationAddressCity/State/ZIP CodePhone Number [address] [address] * MAGNESIUM (04/17/2025 12:35 AM EDT)ComponentValueRef RangeTest MethodAnalysis TimePerformed AtPathologist SignatureMAGNESIUM1.71.6 - 2.3 MG/DL[address] (Source)Anatomical Location / LateralityCollection Method / VolumeCollection TimeReceived Time Blood04/17/2025 12:35 AM EDT1 12:38 AM EDT Narrative Authorizing ProviderResult TypeResult StatusJigar Reynolds MDCHEMISTRY ORDERABLESFinal ResultPerforming OrganizationAddressty/State/ZIP CodePhone Number [address] [address] * (ABNORMAL) COMPREHENSIVE METABOLIC PANEL (04/17/2025 12:35 AM EDT)Component ValueRef RangeTest MethodAnalysis TimePerformed AtPathologist SignatureGlucose 122(H)70 - 100 MG/DLONT[address] Comment: NORMAL <100 mg/dL PREDIABETES 101-126 mg/dL DIABETES 126 mg/dL or higher BUN77 - 20 mg/dL[address] CREATININE SERUM0.60(L)0.70 - 1.20 mg/dL06 [address]ETSODIUM140137 - 145 MMOL/[address]Potassium3.0(L)3.5 - 5.1 MMOL/[address]CHLORIDE10598 - 107 MMOL/[address]Comment:Please note: Triglyceride levels of 600mg/dL or higher may positively bias chloride results by approximately 2.1 mmolCALCIUM9.58.4 - 10.2 mg/dL[address]PROTEIN, TOTAL6.66.3 - 8.2 g/dL06 [address]Albumin3.63.5 - 5.0 g/dL06 [address]ETBILIRUBIN, TOTAL0.80.2 - 1.3 mg/dL06 [address]ETAST2414 - 36 U/[address]ALKAL[address] SSQUPUOLAJU340(H)38 - 126 U/[address]CARBON DIOXIDE (CO2)2322 - 30 MMOL/[address]A/G Ratio1.2RATIOON[address]ALT15<35 U/[address]ESTIMATED OKN717rt/min/1.73sq.[address]GFR COMMENTAverage GFR for 50-59 years old = 93.[address]Comment: Chronic Kidney disease, GFR = <60. Kidney failure, GFR = <15. The GFR estimate is not adjusted for extreme body surface area or acute process, nor has it been validated for women or ethnic groups other than and . MDRD Equation Specimen (Source)Anatomical Location / LateralityCollection Method / Volume Collection TimeReceived HzysRjgnd44/18/2025 12:35 AM EDT1 12:38 AM EDT Narrative Authorizing ProviderResult TypeResult StatusJigar Reynolds MDCHEMISTRY ORDERABLESFinal ResultPerforming OrganizationAddressCity/State/ZIP CodePhone Number [facility] - [address] [facility] [address] [place] [address] * XR KNEE LEFT 1-2 VIEWS (04/07/2025 12:42 PM EDT)Anatomical RegionLaterality Modalityknee, MSKLeftDigital RadiographySpecimen (Source)Anatomical Location / LateralityCollection Method / VolumeCollection TimeReceived Time04/07/2025 12:33 PM EDT Impressions 04/08/2025 10:48 PM EDT IMPRESSION: 1. No acute fracture or malalignment. 2. Arthroplasty. No evidence of acute hardware complication. Postsurgical changes within the adjacent soft tissues. 3. Tiny quadriceps enthesophyte. Narrative 04/08/2025 10:48 PM EDT EXAM: XR KNEE LEFT 1-2 VIEWS HISTORY: postop COMPARISON: None. Procedure Note Rodríguez Soares MD - 04/08/2025 EXAM: XR KNEE LEFT 1-2 VIEWS HISTORY: postop COMPARISON: None. IMPRESSION IMPRESSION: 1. No acute fracture or malalignment. 2. Arthroplasty. No evidence of acute hardware complication. Postsurgical changes within the adjacent soft tissues. 3. Tiny quadriceps enthesophyte. Authorizing ProviderResult TypeResult StatusRubina LAZARO-CDIAGNOSTIC IMAGING ORDERABLESFinal Result * Nerve Block (04/07/2025 12:22 PM EDT)Anatomical RegionLateralityModalityOther Narrative 04/07/2025 12:22 PM EDT JESUS Tom 04/07/2025 12:23 PM Nerve Block Other Adductor Canal Patient location during procedure: post-op Room: 9 Start time: 04/07/2025 11:58 AM End time: 04/07/2025 12:05 PM Reason for block: at surgeon's request Surgeon: Foster Staffing Fellow/Resident/BULLET SLUG CASTING MACHINE OPERATOR/AA: JESUS Tom Performed: Fellow/Resident/BULLET SLUG CASTING MACHINE OPERATOR/AA [place] Protocol Verbal consent obtained Written consent obtained Risks and benefits were discussed. Consent given by: patient The patient states understanding of procedure being performed. The patient's understanding of the procedure matches consent given Procedure consent matches procedure scheduled Relevant documents present and verified: Yes Test results available and properly labeled: N/A Site marked: Yes Imaging studies available: Yes Required blood products, implants, devices, and special equipment available Patient identity confirmed: verbally with patient, arm band, hospital-assigned identification number and provided demographic data Immediately prior to procedure a time out was called to verify the correct patient, procedure, equipment, client application support specialist and site/side marked as required Procedure Details Patient position: sitting Prep: ChloraPrep Patient monitoring: continuous pulse ox, blood pressure and wrapper stripper Laterality: left Technique: ultrasound guided Number of Attempts: 1Imaging guidance used Imaging Saved?: No Needle Needle type: B-bevel Needle gauge: 20 G Needle length: 100 mm Needle localization: ultrasound guidance and anatomical landmarks Catheter type: plain Catheter size: 19 G Assessment Injection: incremental injection and local visualized surrounding nerve on ultrasound Blood aspirated: no Pain on injection: no Paresthesia: no Additional Notes TO performed prior to procedure @ 1154. Sterile prep and drape applied. Aspiration prior to 5 mL of preservative free NS injected. Aspiration negative of blood. Needle removed and catheter threaded. Sterile dressing applied. Pt. Tolerated procedure well. Authorizing ProviderResult TypeResult Christopher LEEBEDSIDE PROCEDURESFinal Result * PROCEDURE NOTE (SCANNED) (04/07/2025 12:15 PM EDT)Anatomical RegionLaterality ModalityOther Narrative Authorizing ProviderResult TypeResult StatusHistorical ProviderPROC - OPERATIVE Final Result * CARDIAC RHYTHM (SCANNED) (04/07/2025 12:13 PM EDT) Narrative Authorizing ProviderResult TypeResult StatusHistorical ProviderECG ORDERABLES Final Result * ORDERS (SCANNED) (04/07/2025 12:09 PM EDT)Anatomical RegionLateralityModality Other Narrative Authorizing ProviderResult TypeResult StatusHistorical ProviderPROC - OPERATIVE Final Result * SURGICAL PATHOLOGY REQUEST (04/07/2025 10:22 AM EDT)ComponentValueRef Range Test MethodAnalysis TimePerformed AtPathologist SignatureSURG PATH RESULT Surgical Final Report Patient Name: LORNE HIGHTOWER [facility]. Rec. #: [id number] Physician: EMETERIO LEDESMA Specimen(s) Received Left knee bone Other Related Clinical Data Not provided Clinical / Pre-Operative Diagnosis Osteoarthritis of left knee, unspecified type Post-Operative Diagnosis Not provided ?? Surgical Procedure Arthroplasty knee total and assistance surgical navigation musculoskeletal imageless add-on px Diagnosis: Left Knee Bone, excision: -Consistent with degenerative joint disease Electronically Signed lks/04/08/2025 Corona Kendrick MD Gross Description: The specimen is received in formalin, and labeled left knee sonam, Lorne Hightower and date of 1965. ??The specimen consists of multiple fragments of bone and soft tissue measuring in aggregate 8 x 5 x 5 cm. ??The articular cartilage has degenerative changes. ??A motor vehicle field representative section is submitted in one cassette and placed in decalcification solution prior to processing. Billing Fee Code(s) A: 75417, [id number], OSUSpecimen (Source)Anatomical Location / Laterality Collection Method / VolumeCollection TimeReceived TimePermanentTISSUE SPECIMEN / Iukxzat4504/07/2025 10:20 AM EDT Narrative Authorizing ProviderResult TypeResult StatusScott Baltazar MDSURG PATHFinal Result Performing OrganizationAddressCity/State/ZIP CodePhone Number LAB, [facility] [address] [place] [id number] * [place] PROCEDURE - INTUBATION ETT (04/07/2025 9:37 AM EDT)Anatomical Region LateralityModalityOther Narrative 04/07/2025 9:37 AM EDT JESUS oTm 04/07/2025 9:44 AM *INTUBATION Date/Time: 04/07/2025 9:37 AM Authorized by: JESUS Tom ?? Performed by: JESUS Tom GENERAL STAFF INFORMATION: Patient location during procedure: OR Room: 04PO OPERI No anticipated increased risk of difficult airway INDICATIONS AND PATIENT CONDITION: Sedation level: general anesthesia Patient position: supine Preoxygenated: yes Preoxygenation method: bag mask Mask difficulty assessment: 1 - easy Indication(s) for intubation: general anesthesia FINAL AIRWAY DETAILS: Final airway type: endotracheal airway Final airway difficulty assessment: airway not difficult Successful airway: standard ETT size: 7.0 mm Surgical Airway Tube Type: endotracheal tubeCuffed: yes Endotracheal tube insertion site: oral Successful intubation technique: direct laryngoscopy Blade: MacintoshBlade size: #3 Facilitating devices/methods: intubating stylet Cormack-Lehane Classification: grade I - full view of glottis Placement verified by: CO2 detection and visualization through the cords Tube secured: 21 CM at the lips Tube Secured with: tape Number of attempts at approach: 1 Number of other approaches attempted: 0 Complications During Intubation:Successful Placement?: Yes ?? Marie Blade: Removed intact by performing provider. Medication administered at: 04/07/2025 9:37 AM Authorizing ProviderResult TypeResult StatusJasofía Love VINEGAR MAKER-CRNABEDSIDE PROCEDURESFinal Result * (ABNORMAL) TOXICOLOGY DRUG SCREEN, URINE (04/07/2025 7:12 AM EDT)Component ValueRef RangeTest MethodAnalysis TimePerformed AtPathologist Signature Amphetamines, Urine, ScreenNEGATIVENEGATIVE NG/[address]Comment:<500 ng/ml CUTOFFMethamphetamineNEGATIVE NEGATIVE NG/[address]Comment: <500 ng/ml CUTOFFBarbituratesNEGATIVENEGATIVE NG/ML[address]Comment:<200 ng/ml CUTOFFBenzodiazepinesPOSITIVE (A)NEGATIVE NG/ML[address] Comment: <200 ng/ml CUTOFF *Unconfirmed Screening Result* ??Unconfirmed screening results are to be used only for medical treatment purposes. CocaineNEGATIVENEGATIVE NG/ML[address]Comment:<150 ng/ml CUTOFFMethadone MetaboliteNEGATIVENEGATIVE NG/ML [address]Comment:<100 ng/ml CUTOFFOpiates, Urine ScreenNEGATIVENEGATIVE NG/ML[address]Comment:<300 ng/ml CUTOFFTricyclic Antidepressants, UrineNEGATIVENEGATIVE NG/ML[address]:<1000 ng/ml CUTOFFCannabinoids (Marijuana)POSITIVE(A)NEGATIVE NG/ML[address]: <50 ng/ml CUTOFF *Unconfirmed Screening Result* ??Unconfirmed screening results are to be used only for medical treatment purposes. Oxycodone ConfirmationNEGATIVENEGATIVE NG/ML[address]:<100 ng/ml CUTOFFBuprenorphineNEGATIVENEGATIVE NG/ML[address]:<10 ng/ml CUTOFFFentanylNEGATIVENEGATIVE NG/ML[address]: 1.0 ng/mL CUTOFF *Unconfirmed Screening Result* ??Unconfirmed screening results are to be used only for medical treatment purposes. ??This test has not been approved by the FDA. Specimen (Source)Anatomical Location / LateralityCollection Method / Volume Collection TimeReceived HeasYhbpz51/08/2025 7:12 AM EDT1 7:19 AM EDT Narrative Authorizing ProviderResult TypeResult StatusChad Violeta VINEGAR MAKER-CNPDRUG/TOXICOLOGY Final ResultPerforming OrganizationAddressCity/State/ZIP CodePhone Number [address] [address] from Last 3 Months Insurance Advance Directives For more information, please contact: [phone] (7:30 AM - 6PM [facility], Saturday-Saturday) * Full Code (Latest Code Status on File) Date ActivatedDate CfoojoqvxezRwkcakhc66/8/2025 11:42 AM Care Teams Team MemberRelationshipSpecialtyStart DateEnd Date Jimmie Demarco DO [address], [place] [address] PCP - GeneralFamily Medicine01/04/25
[2025-06-05 14:21] LABS: Glucose Urine UA NEGATIVE (NEGATIVE)
[2025-06-05 14:29] LABS: Cast Seen? SEEN #/LPF (NONE SEEN); Crystals Seen? None Seen #/HPF (None Seen)
[2025-06-05 14:30] LABS: Urine Culture Indicated YES-FRMC
[2025-06-05 14:32] LABS: Cannabinoid Screen Urine POSITIVE (NEGATIVE); Methamphetamines Screen Urine NEGATIVE (NEGATIVE); Tricyclic Antidepressant Urine NEGATIVE (NEGATIVE)
--- OUTSIDE RECORDS SUMMARY | 2025-06-05 17:39 | XMS_ITS | CCD ---
Author Organization [facility] Inform ion Partnership [facility] CliniSynh Care Team Providers Care Director Financial Systems Name Role Phone DEDE FALLON Referring Unavailable TYSON HOLLAND Primary Care Unavailable DEDE FALLON Referring Unavailable DEDE FALLON Primary Care Unavailable Unavailable Primary Care Provider Unavailphill e Jimmie Garcia DO Primary Care Provider [phone] Jimmie Garcia DO Primary Care Provider [phone] Rakan FULLER, Keila Mathews Attending Unav ailable Radha EMRESON Jimmie Jim Primary Care Mehran Holland MD, Tyson Dow Primary Care Unavailable Rakan GROSSMAN-EDI, Keila Mathews Attending Madi Hampton MD, Manpreet Álvarez Attending Mehran [facility] Jimmie Jim Primary Care Mehran FULLER, Keila Mathews Attending Unav ailable [facility] Mehran Holland MD, Tyson Dow Primary Care Unavailable Rakan GROSSMAN-EDI, Keila Mathews Attending Madi Holland MD, Tyson Dow Primary Care Unavailable Rakan FULLER, Keila Mathews Attending Madi shuklaable Rakan FULLER, Keila Mathews Attending Unav ailable Mahnazng DO Jimmie Jim Primary Care Mehran labJimmie Walker DO Primary Care Provider [phone] Provider, None Primary Care Unavailable Provider, None Primary Care Unavailable Provider, None Primary Care Unavailable Jimmie Garcia DO Primary Care Provider CLAUDIA GARCIANIS Primary Care Unavailable RADHA JIMMIE Referring Unavailable JOAQUÍN BAEZ Attending Unavailable JIMMIE GARCIA Primary Care Unavailable JOAQUÍN BAEZ Attending Unavailable JOAQUÍN BAEZ Referring Unavailable JIMMIE GARCIA Primary Care Unavailable JOAQUÍN BAEZ Admitting Unavailable JOAQUÍN BAEZ Attending Unavailable SAMEER WILBURN Referring Unavailable JIGAR REYNOLDS Attending Unavailable FURLONG, JIMMIE Primary Care Unavailable ЕЛЕНА MARTÍNEZ Attending Unavailable ЕЛЕНА MARTÍNEZ Referring Unavailable FURLONG, JIMMIE Primary Care Unavailable FURLONG, JIMMIE Primary Care Unavailable JOAQUÍN BAEZ Attending Unavailable JOAQUÍN BAEZ Referring Unavailable ЕЛЕНА MARTÍNEZ Attending Unavailable FURLONG, JIMMIE Primary Care Unavailable SAMEER WILBURN Referring Unavailable Allergies Allergy ClassificationReported Allergen(s)Allergy TypeDate of OnsetReaction(s) Facility (1 source)Seasonal allergyPropensity to adverse reactions to [id number] [facility] (20 sources)traMADolDrug Enhjhwb40-46-3482Bdfnd, Itching, Anaphylaxis, Rash [facility] (1 source)traMADolDrug Jwzdkbf42-27-0970TrftLVAMountain [facility] (7 sources)Peanut-Containing Drug ProductsPropensity to adverse reactions to vmrm21-06-5758XyyhllymqsyIWHR[facility] (20 sources)tree nut, unspecifiedPropensity to adverse reactions to drug 32-79-1748VkuynyekyvxDqhTbceicSamaritan Hospital (20 sources)peanut allergenic extractDrug Rwvfyhd83-85-4093HabuyrhhgogPttLwpwdv Health System Work Phone: (20 sources)PollenPropensity to adverse reactions to jvxk38-26-7219JkgedahH[facility] (1 source)Nuts (not including peanuts); Translations: [Nuts]Propensity to adverse reactions to food (disorder)[facility] (1 source)Seasonal allergy; Translations: [seasonal allergies]Propensity to adverse reactions (disorder)[facility] (1 source)traMADol; Translations: [Ultram]Drug AllergyN[facility] (6 sources)redtop grass pollen extractDrug Ojenacz79-58-1612QchvrnbOshhk Health System (6 sources)[facility] MealPropensity to adverse reactions to ilvb79-76-7667 [facility] Medications Current Medications MedicationDrug Class(es)DatesSig (Normalized)Sig (Original)acetaminophen 325 mg oral tablet (10 sources)Start: 86-96-7215owyz 2 tablets by mouth every four hours as needed Acetaminophen 325 MG tablet Take 2 tablets by mouth every 4 hours as needed for Mild Pain. 50 tablet 1 04/07/2025 ActiveStart: 04-07-2025 End: 42-97-5500egem 1 tablet by mouth every six hours1,000 mg, Oral, EVERY 6 HOURS NON-STANDARD, First dose on Sat04/07/25 at 1300, Until Discontinued, M aximum dose of acetaminophen is 4000 mg from all sources in 24 hours., Post-op/Post-ProcStart: 97-03-5059pjsc 1 dose by mouth every hour1,000 mg, Oral, ONCE DIRECTED, 1 dose, Starting on Sat04/07/25 at 0638, Until Sat04/07/25 at 0705, See admin instructions, Administer 1 hour preop., Pre-op/Pre-Proctake 325 mg rectal route every four hours as neededacetaminophen 325 MG Suppository Insert 1 suppository rectally every 4 hours as needed for Mild Pain. Active acetaminophen 325 mg / HYDROcodone bitartrate 5 mg oral tablet (20 sources)Opioid AgonistStart: 04-19-2025 End: 58-32-4190jtnv 1 tablet by mouth once daily as neededhydroCODone- acetaminophen 5-325 MG tablet Indications: Acute postoperative pain of knee Take 1-2 tablets by mouth every 8 hours as needed for up to 7 days. Do not take over 4000mg acetaminophen daily. 30 tablet 04/27/2025 05/04/2025 ActiveStart: 08-17-2024 End: 83-86-4611emmv 1 tablet by mouth three times daily as neededHYDROcodone- acetaminophen (NORCO) 5-325 mg per tablet TAKE 1 TABLET BY MOUTH 3 TIMES A DAY NEEDED FOR PAINMUST LAST 30 DAYS 08/17/2024 12/03/2024 Discontinued (Therapy completed)Start: 09-18-2023 End: 67-14-2561HJQKGcmoxeo-acetaminophen (NORCO) 5-325 mg per tablet 09/18/2023 03/19/2024 Discontinued (Therapy completed)take 1 tablet by mouth every six hours as neededHYDROcodone-acetaminophen (NORCO) 5-325 MG per tablet Take 1 tablet by mouth every 6 hours as needed. [id number] 200 actuat albuterol 0.09 mg/actuat metered dose inhaler (12 sources)beta2-Adrenergic AgonistStart: 72-42-6702bcxj 2 puff(s) by inhalation every six hours as needed for wheezingalbuterol sulfate HFA (PROVENTIL;VENTOLIN;PROAIR) 108 (90 Base) MCG/ACT inhaler Indications: Mild in termittent asthma, unspecified whether complicated INHALE 2 PUFFS INTO THE LUNGSEVERY 6 HOURS NEEDED FOR WHEEZING 18 g 07/11/2022 Activealbuterol (PROVENTIL HFA;VENTOLIN HFA) 90 mcg/actuation inhaler Inhale 2 puffs. Active amoxicillin 500 mg oral capsule (7 sources)Penicillin-class AntibacterialStart: 04-27-2025 End: 60-39-8041Txyjygsunpj 500 MG capsule Take 4 capsules 1 hour before procedure 8 capsule 1 04/27/2025 04/27/2026 ActiveStart: 03-15-2025 End: 57-13-5168stgi 1 capsule by mouth three times dailyamoxicillin (AMOXIL) 500 mg capsule Take 1 capsule (500 mg total) by mouth 3 (three) times a day for 7 days. 21 capsule 03/15/2025 03/22/2025 ActiveStart: 04-07-2024 End: 96-85-7601agzs 1 tablet by mouth onceamoxicillin (AMOXIL) 875 mg tablet Take 1 tablet (875 mg total) by mouth every 12 (twelve) hours for 7 days. 14 tablet 04/07/2024 04/14/2024 Activeapixaban 2.5 mg oral tablet (5 sources)Factor Xa InhibitorStart: 04-08-2025 End: 23-50-7404ljvv 2.5 mg by mouth every twelve hours in the morning2.5 mg, Oral, EVERY 12 HOURS, First dose on Ana 04/08/25 at 0900, Until Discontinued, Start in AM day after surgery, Indications: DVT proph, Post-op/Post-ProcStart: 04-07-2025 End: 89-47-8990huhh 1 tablet by mouth every twelve hoursapixaban (Eliquis) 2.5 MG tablet Take 1 tablet by mouth every 12 hours. 70 tablet 04/07/2025 05/12/2025 Activeascorbic acid 60 mg / beta carotene 5000 unt / copper sulfate 40 mg / dl- alpha tocopheryl acetate 30 unt / sodium selenite 0.04 mg / zinc oxide 40 mg oral tablet (4 sources)Vitamin CStart: 60-84-5061tfhq 1 tablet by mouth once dailyMultiple Vitamin (Multivitamin Adult) tablet Take 1 tablet by mouth daily. 30 tablet 04/07/2025 Activecephalexin 500 mg oral capsule (1 source)Cephalosporin AntibacterialStart: 04-07-2025 End: 82-90-7144glyx 1 capsule by mouth every six hourscephALEXin 500 MG capsule Take 1 capsule by mouth every 6 hours for 1 dose. Take 6 hours after lastdose given. 1 capsule 04/07/2025 04/08/2025 Activecholecalciferol 1.25 mg oral capsule (20 sources)Vitamin DStart: 42-41-1828uuli 1 capsule by mouth every week cholecalciferol (VITAMIN D3) 50,000 units capsule TAKE 1 CAPSULE BY MOUTH ONCE A WEEK 12 capsule 1 11/15/2024 ActiveStart: 08-22-2023 End: 61-94-4587ctyrgehfqugfiza (VITAMIN D3) 50,000 units capsule 08/22/2023 03/19/2024 Discontinued (Therapy completed)docusate sodium 100 mg oral capsule (5 sources)Start: 04-07-2025 End: 59-67-8320ssfl 1 capsule by mouth twice dailyDocusate 100 MG capsule Take 1 capsule by mouth 2 times daily. 60 capsule 04/07/2025 [id number] 0.3 ml EPINEPHrine 1 mg/ml auto-injector (12 sources)alpha-Adrenergic Agonist, beta-Adrenergic Agonist, Catecholamine EPINEPHrine (EPIPEN) 0.3 mg/0.3 mL auto-injector Inject 0.3 mL (0.3 mg total) into the appropriate muscle. ActiveEPINEPHrine 0.3 MG/0.3ML Solution Auto- injector injection Inject 0.3 mL intramuscularly. Activeescitalopram 20 mg oral tablet (20 sources)Serotonin Reuptake InhibitorStart: 08-12-2024 End: 28-79-9248xixg 1 tablet by mouth in the morningescitalopram (LEXAPRO) 20 mg tablet Take 1 tablet (20 mg total) by mouth in the morning. 90 tablet 1 05/03/2025 ActiveStart: 08-22-2023 End: 99-48-2901pjzd 1 tablet by mouth once daily in the morningescitalopram (LEXAPRO) 20 mg tablet Take 1 tablet (20 mg total) by mouth every morning. 90 tablet 03/19/2024 Discontinued (Therapy completed)HERBAL PRODUCT (8 sources)HERBAL PRODUCT Replace this text with the name of the herbal product ActiveHERBAL PRODUCT daily. Replace this text with the name of the herbal product ActivehydrOXYzine hydrochloride 25 mg oral tablet (20 sources)AntihistamineStart: 40-74-4106naea 1 tablet by mouth every eight hours as neededhydrOXYzine (ATARAX) 25 mg tablet Take 1 tablet (25 mg total) by mouth every 8 (eight) hours as needed for itching. 30 tablet 1 04/29/2025 Active Start: 03-25-2024 End: 43-05-2390yeli 1 tablet by mouth three times daily as neededhydrOXYzine (ATARAX) 25 mg tablet TAKE 1 TABLET BY MOUTH THREE TIMES DAILY NEEDED FOR ITCHING ORANXTIETY 02/09/2025 04/27/2025 Discontinued (Reorder)Start: 02-26-2023 End: 08-17-9115lkutXHDyfrf (VISTARIL) 25 mg capsule 08/21/2023 ActiveLORazepam 0.5 mg oral tablet (20 sources)BenzodiazepineStart: 12-03-2024 End: 34-31-4263meko 1 tablet by mouth twice daily as needed for anxietyLORazepam (ATIVAN) 0.5 mg tablet Indications: Anxiety Take 1 tablet (0.5 mg total) by mouth 2 (two)times a day as needed for anxiety. 30 tablet 04/26/2025 ActiveMisc Natural Products (TURMERIC, CURCUMIN, PO) (4 sources)Misc Natural Products (TURMERIC, CURCUMIN, PO) Take by mouth daily. Activemultivitamin tablet 1 tablet (1 source)Start: 04-08-2025 End: 86-98-8868vxvo 1 tablet by mouth once daily1 tablet, Oral, DAILY, First dose on Ana 04/08/25 at 0900, Until Discontinued, Post-op/Post-Procnaloxone hydrochloride 40 mg/ml nasal spray (4 sources)Opioid AntagonistStart: 04-07-2025 End: 88-19-8949cbdewezv 4 MG/0.1ML 1 spray by Nasal route once for 1 dose. [place] into the nose as directed. Call 911. If no response in 2 minutes use a new nasal spray in other nostril. Repeat until help arrives. 1Each 04/07/2025 Active omeprazole 20 mg delayed release oral capsule (4 sources)Proton Pump InhibitorStart: 74-96-3079twmw 1 capsule by mouth once dailyomeprazole [address] capsule Take 1 capsule by mouth daily. 30 capsule 04/07/2025 Activeondansetron 4 mg oral tablet (20 sources)Serotonin-3 Receptor AntagonistStart: 04-17-2025 End: mg, Intravenous, ONCE, 1 dose, On 04/17/25 at 0100Start: 04-07-2025 End: 59-89-5909fapf 1 tablet by mouth every eight hours as neededOndansetron 4 MG tablet Take 1 tablet by mouth every 8 hours as needed for Nausea / Vomiting or Nausea for up to 3 days. 10 tablet 04/07/2025 04/10/2025 ActiveStart: 04-07-2025 End: 23-43-4030cspu 4 mg intravenously every four hours as needed4 mg, Intravenous, EVERY 4 HOURS NEEDED, Starting on Sat04/07/25 at 1232, Until Sat04/07/25 at 2150, Nausea / Vomiting, Post-op/Post-ProcStart: 04-07-2025 End: mg, Intravenous, ONCE NEEDED, 1 dose, Starting on Sat04/07/25 at 1145, Until Sat04/07/25 at 2150, Nausea / Vomiting, RecoveryStart: 52-21-9051fyec 1 tablet by mouth every eight hours as needed for nausea and vomitingondansetron ODT (ZOFRAN ODT) 8 mg disintegrating tablet Dissolve 1 tablet (8 mg total) on tongue every 8 (eight) hours as needed for nausea or vomiting. 20 tablet 1 12/15/2024 ActiveStart: 02-10-2024 End: 37-15-1082wrtq 1 tablet by mouth every eight hours as needed for nausea and vomitingondansetron ODT (ZOFRAN ODT) 8 mg disintegrating tablet Dissolve 1 tablet (8 mg total) on tongue every 8 (eight) hours as needed for nausea or vomiting. 90 tablet 02/24/2024 03/19/2024 Discontinued (Therapy completed) oxyCODONE hydrochloride 5 mg oral tablet (5 sources)Opioid AgonistStart: 04-07-2025 End: 80-06-3090kscDFIQBO 5 MG tablet Indications: Acute postoperative pain of knee 5-10 mg every 6 hours as neededfor moderate to severe pain Ween as tolerated 30 tablet 04/12/2025 ActiveStart: 04-07-2025 End: 57-68-1034bgzm 5-10 mg by mouth every four hours as needed5-10 mg, Oral, EVERY 4 HOURS NEEDED, Starting on Sat04/07/25 at 1232, Until Sat04/07/25 at 2150,moderate-severe pain, If pain unrelieved with oxycodone, contact pharmacist to enter order for Oxycodone ER 10mg PO Q12H for 3 days, Post-op/Post-Proc pantoprazole 40 mg delayed release oral tablet (20 sources)Proton Pump InhibitorStart: 04-17-2025 End: 15-70-415397 mg, Intravenous, ONCE, 1 dose, On 04/17/25 at 0415, Dilute each 40 mg vial with 10 mL of NS.All bolus doses, whether 40 mg or 80 mg, should be administered over at least two minutes., Indications: GERDStart: 11-07-8683pbdo 1 tablet by mouth once daily before breakfastpantoprazole (PROTONIX) 40 mg EC tablet Take 1 tablet (40 mg total) by mouth every morning before breakfast. 06/18/2024 ActiveStart: 08-22-2023 End: 12-07-0388gcth 1 tablet by mouth once daily before breakfastpantoprazole (PROTONIX) 40 mg EC tablet Take 1 tablet (40 mg total) by mouth every morning before breakfast. 90 tablet 1 02/24/2024 03/19/2024 Discontinued (Therapy completed)microencapsulated potassium chloride 20 meq extended release oral tablet (4 sources)Start: 04-17-2025 End: 39-81-1844aqck 1 tablet by mouth twice daily at mealtimePotassium chloride 20 MEQ Tab CR tablet Take 1 tablet by mouth 2 times daily with meals for 3 days. 6 tablet 04/17/2025 ActivepredniSONE 20 mg oral tablet (2 sources)Start: 03-25-2025 End: 64-35-9729rlfk 1 tablet by mouth in the morning, then take 1 tablet by mouth at bedtimepredniSONE (DELTASONE) 20 mg tablet Take 1 tablet (20 mg total) by mouth in the morning and 1 tablet (20 mg total) before bedtime. Do all this for 5 days. 10 tablet 03/25/2025 03/30/2025 ActiveStart: 09-01-2024 End: 17-39-1736pswc 1 tablet by mouth three times dailypredniSONE (DELTASONE) 20 mg tablet Take 1 tablet (20 mg total) by mouth 3 (three) times a day for 5 days. 15 tablet 09/01/2024 09/06/2024 Activepregabalin 50 mg oral capsule (20 sources)Start: 06-29-2024 End: 26-24-0817tkgw 1 capsule by mouth three times dailypregabalin (LYRICA) 50 mg capsule Indications: Chronic bilateral low back pain without sciatica Take 1 capsule (50 mg total) by mouth 3 (three) times a day. 90 capsule 04/26/2025 ActiveStart: 02-13-2021 End: 02-69-4708mlmfeounla (LYRICA) 50 mg capsule 09/13/2023 03/19/2024 Discontinued (Therapy completed)promethazine hydrochloride 25 mg oral tablet (14 sources)PhenothiazineStart: 12-16-2023 End: 62-95-4997pvob 1 tablet by mouth every six hours as neededPromethazine 25 MG tablet Take 1 tablet by mouth every 6 hours as needed (Nausea/Vomiting). 10 tablet 1 04/17/2025 Activesemaglutide, weight loss, (WEGOVY) 1 mg/0.5 mL pen injector (20 sources)Start: 69-22-4017sekjfgnvfsv, weight loss, (WEGOVY) 1 mg/0.5 mL pen injector Indications: Class 1 obesity due to excess calories with serious comorbidity and body mass index (BMI) of 34.0 to 34.9 in adult Inject 0.5 mL (1 mg total) under the skin every 7 days. 2 mL 2 12/03/2024 ActiveStart: 11-11-2024 End: 35-41-9470aovtjmszeor, weight loss, (WEGOVY) 1 mg/0.5 mL pen injector Inject 0.5 mL (1 mg total) under the skin every 7 days. 2 mL 2 11/11/2024 12/03/2024 Discontinued (Reorder)Start: 80-97-8087aaaftqzwmbm, weight loss, (WEGOVY) 1 mg/0.5 mL pen injector Inject 0.5 mL (1 mg total) under the skin every 7 days. 2 mL 2 11/11/2024 ActiveStart: 11-12-2023 End: 49-79-4945hwxllsndwfo, weight loss, (WEGOVY) 1 mg/0.5 mL pen injector Indications: Class 2 severe obesity dueto excess calories with serious comorbidity and body mass index (BMI) of 39.0 to 39.9 in adult ([facility]) Inject 0.5 mL (1 mg total) under the skin every 7 days. 2 mL 1 11/12/2023 01/14/2024 Discontinued (Dose adjustment)Start: 68-72-3380wcvoqsiedkb, weight loss, (WEGOVY) 1 mg/0.5 mL pen injector Indications: Class 2 severe obesity dueto excess calories with serious comorbidity and body mass index (BMI) of 39.0 to 39.9 in adult ([facility]) Inject 0.5 mL (1 mg total) under the skin every 7 days. 2 mL 1 11/12/2023 ActiveSemaglutide,0.25 or 0.5MG/DOS, 2 MG/3ML Solution Pen-injector (4 sources)inject 0.5 mg by subcutaneous injection every weekSemaglutide,0.25 or 0.5MG/DOS, 2 MG/3ML Solution Pen-injector Inject under the skin once a week. ActiveSemaglutide-Weight Management (WEGOVY) 0.25 MG/0.5ML SOAJ SC injection (1 source)Start: 64-17-0753Yvaprduglsz-Weight Management (WEGOVY) 0.25 MG/0.5ML SOAJ SC injection Indications: BMI 40.0-44.9, adult ([facility]) Inject 0.25 mg into the skin every 7 days 2 mL 09/18/2023 ActiveSemaglutide-Weight Management (WEGOVY) 0.5 MG/0.5ML SOAJ SC injection (1 source)Start: 35-45-6661Zncjscqofmk-Weight Management (WEGOVY) 0.5 MG/0.5ML SOAJ SC injection Indications: BMI 40.0-44.9, adult (HCC) , Class 3 severe obesity due to excess calories with body mass index (BMI) of 40.0 to 44.9 in adult, unspecified whether serious comorbidity present ([facility]) Inject 0.5 mg into the skin every 7 days 2 mL 10/03/2023 ActivetiZANidine 4 mg oral tablet (20 sources)Central alpha-2 Adrenergic AgonistStart: 04-87-2389trqr 1 tablet by mouth every four hours as neededtiZANidine (ZANAFLEX) 4 mg tablet Take 1 tablet (4 mg total) by mouth every 4 (four) hours as needed for muscle spasms. 120 tablet 1 04/12/2025 ActiveStart: 05-12-2024 End: 36-71-0765aznf 1 tablet by mouth every eight hours as neededtiZANidine (ZANAFLEX) 4 mg tablet TAKE 1 TABLET BY MOUTH EVERY 8 HOURS NEEDED FOR MUSCLE SPASMS.270 tablet 02/09/2025 04/12/2025 Discontinued (Reorder)Start: 11-12-2023 take 1 tablet by mouth three times dailytiZANidine (ZANAFLEX) 4 MG tablet Indications: Chronic bilateral low back pain without sciatica TAKE 1 TABLET BY MOUTH 3 TIMES DAILY 90 tablet 1 11/12/2023 ActiveStart: 08-29-2023 End: 22-39-4027ovak 1 tablet by mouth every eight hours as neededtiZANidine (ZANAFLEX) 4 mg tablet Take 1 tablet (4 mg total) by mouth every 8 (eight) hours as needed for muscle spasms. 270 tablet 02/24/2024 03/19/2024 Discontinued (Therapy completed) Completed/Discontinued Medications MedicationDrug Class(es)DatesSig (Normalized)Sig (Original)bisacodyl 10 mg rectal suppository (1 source)Stimulant LaxativeStart: 04-07-2025 End: 61-78-9489ojht 10 mg rectal route once daily as needed for nrcxsurffjpe35 mg, Rectal, DAILY NEEDED, Starting on Sat04/07/25 at 1232, Until Sat04/07/25 at 2150, constipation, Post-op/Post-Proccalcium chloride 0.0014 meq/ml / potassium chloride 0.004 meq/ml / sodium chloride 0.103 meq/ml / sodium lactate 0.028 meq/ml injectable solution (2 sources)Start: 04-07-2025 End: 79-79-5179Llvacvkdqed, at 75 mL/hr, CONTINUOUS, Starting on Sat04/07/25 at 1245, Until Sat04/07/25 at 2150, Convert IV to PRN adapter post op day 1 if adequate oral intake, Post-op/Post-ProcceFAZolin 2000 mg injection (1 source)Cephalosporin AntibacterialStart: 04-07-2025 End: 98-23-1598kmzo 2 g intravenously every eight hours2 g, Intravenous, Administer over 30 Minutes, EVERY 8 HOURS NON-STANDARD, 3 doses, First dose on Sat04/07/25 at 1800, Last dose on Sat04/08/25 at 1000, Post-op/Post-Proc1 ml dexamethasone phosphate 10 mg/ml injection (2 sources)CorticosteroidStart: 04-07-2025 End: 53-31-937228 mg, Intravenous, ONCE, 1 dose, On Sat04/07/25 at 1700, Give dose #2 30 minutes prior to discharge. (dose #1 given pre-operatively by anesthesia), Post-op/Post-ProcStart: 04-07-2025 End: 34-77-0681ggbq 10 mg intravenously once10 mg, Intravenous, INTRA-OP ONCE, Starting on Sat04/07/25 at 1232, Until Sat04/07/25 at 2150, Anesthesia provider to administer at induction., Intra-op/Intra-Proc1 ml diphenhydrAMINE hydrochloride 50 mg/ml cartridge (1 source)Histamine-1 Receptor AntagonistStart: 04-17-2025 End: 92-03-086340.5 mg, Intravenous, ONCE, 1 dose, On 04/17/25 at 0245 docusate sodium 50 mg / sennosides, alf 8.6 mg oral tablet (1 source)Start: 04-07-2025 End: 33-37-6707vhgx 2 tablets by mouth twice daily as needed for constipation2 tablet, Oral, 2 TIMES DAILY NEEDED, Starting on Sat04/07/25 at 1232, Until Sat04/07/25 at 2150, constipation, Post-op/Post-Proc1 ml HYDROmorphone hydrochloride 1 mg/ml cartridge (5 sources)Opioid AgonistStart: 04-17-2025 End: mg, Intravenous, ONCE, 1 dose, On 04/17/25 at 0200Start: 04-07-2025 End: 19-14-2210itru 0.5-1 mg intravenously every four hours as needed0.5-1 mg, Intravenous, EVERY 4 HOURS NEEDED, Starting on Sat04/07/25 at 1232, Until Sat04/07/25 at 2150, Severe Pain, Post-op/Post-ProcStart: 04-07-2025 End: 50.5 mg, Intravenous, EVERY 15 MINUTES NEEDED, 2 doses, Starting on Sat04/07/25 at 1145, Until Sat04/07/25 at 1206, Severe Pain, Recoveryibuprofen 600 mg oral tablet (3 sources)Nonsteroidal Anti-inflammatory Drug End: 12-16-3947lqys 1 tablet by mouth every six hoursIbuprofen 600 MG tablet Take 1 tablet by mouth every 6 hours. 04/07/2025 Discontinued (Therapy compl eted)iohexol (OMNIPAQUE) 350 MG/ML injection 75 mL (1 source)Start: 04-17-2025 End: mL, Intravenous, ONCE, 1 dose, On 04/17/25 at 0200, Extravasation Risk., Radiology Proceduremetoclopramide 5 mg oral tablet (14 sources)Dopamine-2 Receptor AntagonistStart: 03-19-2024 End: 39-32-4804zmfzmztaaluoua (REGLAN) 5 mg tablet Take 1 tablet (5 mg total) by mouth in the morning and 1 tablet(5 mg total) at noon and 1 tablet (5 mg total) in the evening and 1 tablet (5 mg total) before bedtime. 120 tablet 1 03/19/2024 12/03/2024 Discontinued (Therapy completed)potassium bicarbonate 25 meq effervescent oral tablet (1 source)Start: 04-17-2025 End: mEq, Oral, ONCE, 1 dose, On 04/17/25 at 0415, Effervescent tablet; Must be dissolved in the amount of diluent recommended by the etl lead. Solution should be sipped slowly, over 5-10 minutes.Potassium Chloride / Sodium Chloride (1 source)Start: 04-17-2025 End: 48-23-640467 mEq, Intravenous, at 125 mL/hr, Administer over 4 Hours, ONCE, 1 dose, On 04/17/25 at 0145prochlorperazine 5 mg/ml injectable solution (1 source)PhenothiazineStart: 04-17-2025 End: 74-35-631578 mg, Intravenous, ONCE, 1 dose, On 04/17/25 at 0245, For IV route: dilute dose with 10mL normal saline and give by slow IV push at a rate of 5mg/min. Maximum of 40mg/day.Promethazine (PHENERGAN) 6.25 mg in Sodium chloride 0.9%, with overfill 60.25 mL (total volume) IVPB (1 source)Start: 04-07-2025 End: 94-88-9847maev 6.25 mg intravenously every hour as needed6.25 mg, Intravenous, at 180.8 mL/hr, Administer over 20 Minutes, EVERY 1 HOUR NEEDED, 2 doses, Starting on Sat04/07/25 at 1145, Until Sat04/07/25 at 2150, Other, Nausea and vomiting, Extravasation Risk, RecoveryROPivacaine HCl-NaCl 0.2-0.9 % On-Q pump (1 source)Start: 04-07-2025 End: 41-04-7818Zquj-neural, CONTINUOUS, Starting on Sat04/07/25 at 1200, Until Sat04/07/25 at 2150, Recovery to Continuesemaglutide, weight loss, (WEGOVY) 0.25 mg/0.5 mL pen injector (3 sources)Start: 08-31-2024 End: 00-78-6681yjydzpxesby, weight loss, (WEGOVY) 0.25 mg/0.5 mL pen injector Indications: Class 1 obesity due to excess calories with serious comorbidity and body mass index (BMI) of 33.0 to 33.9 in adult Inject 0.5 mL (0.25 mg total) under the skin every 7 days. 2 mL 2 08/31/2024 10/13/2024 Discontinued (Dose ad justment)Start: 73-67-5583kdrogxnrfpo, weight loss, (WEGOVY) 0.25 mg/0.5 mL pen injector Indications: Class 1 obesity due to excess calories with serious comorbidity and body mass index (BMI) of 33.0 to 33.9 in adult Inject 0.5 mL (0.25 mg total) under the skin every 7 days. 2 mL 2 08/31/2024 Active semaglutide, weight loss, (WEGOVY) 0.5 mg/0.5 mL pen injector (3 sources)Start: 10-13-2024 End: 93-66-6666msbdqszulio, weight loss, (WEGOVY) 0.5 mg/0.5 mL pen injector Indications: Class 1 obesity due to excess calories with serious comorbidity and body mass index (BMI) of 33.0 to 33.9 in adult Inject 0.5 mL (0.5 mg total) under the skin every 7 days. 2 mL 1 10/13/2024 11/11/2024 Discontinued (Dose adjustment)Start: 53-19-7841unbyrcpzdgm, weight loss, (WEGOVY) 0.5 mg/0.5 mL pen injector Indications: Class 1 obesity due to excess calories with serious comorbidity and body mass index (BMI) of 33.0 to 33.9 in adult Inject 0.5 mL (0.5 mg total) under the skin every 7 days. 2 mL 1 10/13/2024 Activesemaglutide, weight loss, (WEGOVY) 1.7 mg/0.75 mL pen injector (5 sources)Start: 01-14-2024 End: 27-31-0443pusdeeuuzce, weight loss, (WEGOVY) 1.7 mg/0.75 mL pen injector Indications: Class 2 severe obesity due to excess calories with serious comorbidity and body mass index (BMI) of 39.0 to 39.9 in adult ([facility]) Inject 0.75 mL (1.7 mg total) under the skin every 7 days. 3 mL 2 01/14/2024 03/19/2024 Discontinued (Side effects)Start: 21-11-2279tfztrtwxlzm, weight loss, (WEGOVY) 1.7 mg/0.75 mL pen injector Indications: Class 2 severe obesity due to excess calories with serious comorbidity and body mass index (BMI) of 39.0 to 39.9 in adult ([facility]) Inject 0.75 mL (1.7 mg total) under the skin every 7 days. 3 mL 2 01/14/2024 Xcvcym315 ml sodium chloride 9 mg/ml injection (2 sources)Start: 04-17-2025 End: mL, Intravenous, ONCE, 1 dose, On 04/17/25 at 0200, Radiology Proceduresodium phosphate, dibasic 35.5 mg/ml / sodium phosphate, monobasic 96.4 mg/ml enema (1 source)Start: 04-07-2025 End: enema, Rectal, DAILY NEEDED, Starting on Sat04/07/25 at 1232, Until Sat04/07/25 at 2150, Refractory Constipation, use per package instructions, Post-op/Post-Proctotal joint mixture (no clonidine) premade bag 1 Bag (1 source)Start: 04-07-2025 End: 44-10-5019bympt joint mixture (no clonidine) premade bag 1 Bagtranexamic acid 650 mg oral tablet (1 source)Antifibrinolytic AgentStart: 04-07-2025 End: 59-77-7358lvrh 1 dose by mouth every two hours1,950 mg, Oral, ONCE DIRECTED, 1 dose, Starting on 04/07/25 at 0638, Until Sat04/07/25 at 0705, See admin instructions, Administer 2 hours preop, Pre-op/Pre-ProcWEGOVY 0.5 mg/0.5 mL pen injector (5 sources)Start: 11-07-2023 End: 32-35-8040vsduzg 0.5 mL by subcutaneous injection every weekWEGOVY 0.5 mg/0.5 mL pen injector Indications: Morbid obesity ([facility]) Inject 0.5 mL (0.5 mg total) under the skin once a week. 2 mL 1 11/07/2023 11/12/2023 Discontinued (Dose adjustment)Start: 49-15-5986rmiznx 0.5 mL by subcutaneous injection every weekWEGOVY 0.5 mg/0.5 mL pen injector Indications: Morbid obesity ([facility]) Inject 0.5 mL (0.5 mg total) under the skin once a week. 2 mL 1 11/07/2023 ActiveStart: 10-10-2023 End: 27-79-9959XJIQLS 0.5 mg/0.5 mL pen injector INJECT 0.5 MG INTO THE SKIN EVERY 7 DAYS 10/10/2023 11/07/2023 Discontinued (Reorder)Start: 51-55-9728SWFBEF 0.5 mg/0.5 mL pen injector INJECT 0.5 MG INTO THE SKIN EVERY 7 DAYS 10/10/2023 Active Problems Active Problems Problem ClassificationProblemDateDocumented DateEpisodic/ChronicAnxiety disorders (20 sources)Generalized anxiety disorder; Translations: [Generalized anxiety disorder]Onset: 044684-72-7561FhjqieqCnwrzu (20 sources)Mild intermittent asthma; Translations: [Mild intermittent asthma, uncomplicated]Onset: 011787-49-1552CbqqcchNosmrrdgoe disorders (20 sources)Gastroesophageal reflux disease; Translations: [Gastro-esophageal reflux disease without esophagitis]Onset: 974542-07-9117YcyomurBlipv and electrolyte disorders (4 sources)Hypokalemia; Translations: [Hypokalemia]Onset: EpisodicHeadache; including migraine (20 sources)Migraine without aura, not refractory ; Translations: [Migraine without aura, not intractable, without status migrainosus]Onset: 07-08-2020 99-08-7309PlrhzlwNyushcogqrebi and screening for infectious disease (2 sources)Vaccination needed; Translations: [Encounter for immunization] 07-00-3265HqlybkovMpse disorders (20 sources)Major depressive disorder; Translations: [Major depressive disorder, single episode, unspecified]Onset: 154562-93-0291VxkfjqrEojjur and vomiting (6 sources)Vomiting; Translations: [Nausea and vomiting]Onset: 03-15-2024 EpisodicOsteoarthritis (20 sources)Osteoarthritis of knee; Translations: [Unilateral primary osteoarthritis, unspecified knee]Onset: 40-25-994181950282-33-0537EbehpfnQpmal connective tissue disease (1 source)History of left total knee replacement; Translations: [Presence of left artificial knee joint]28-28-8153QskvglzGlggx connective tissue disease (2 sources)Presence of left artificial knee joint; Translations: [Presence of left artificial knee joint]Onset: 94-54-4258HeehmhiJyced nervous system disorders (20 sources)Circadian rhythm sleep disorder of shift work type; Translations: [Circadian rhythm sleep disorder,shift work type]Onset: ChronicOther nervous system disorders (4 sources)Other acute postprocedural pain; Translations: [Pain in joint, lower leg]Onset: 905042-13-1857KmccgwzmPbfbl nervous system disorders (1 source)Acute postoperative pain; Translations: [Other acute postprocedural pain]95-59-6563WtebayaqPzmfr non-traumatic joint disorders (3 sources)Pain in left knee; Translations: [Pain in joint, lower leg]Onset: 885874-39-1273FmlssjodOfaza non-traumatic joint disorders (2 sources)Pain in unspecified knee; Translations: [Pain in unspecified knee] Onset: 66-45-6887XdxsxfwbNckng nutritional; endocrine; and metabolic disorders (1 source)Morbid (severe) obesity due to excess calories; Translations: [Morbid (severe) obesity due to excess calories]Onset: 45-82-6299NscxmbjEluge nutritional; endocrine; and metabolic disorders (1 source)Body mass index (BMI) 40.0-44.9, adult; Translations: [Body mass index (BMI) 40.0-44.9, adult]Onset: 91-11-8184UfadqraOqdcb nutritional; endocrine; and metabolic disorders (3 sources)Severe obesity; Translations: [Morbid (severe) obesity due to excess calories]88-93-9484CazyvusTihsm nutritional; endocrine; and metabolic disorders (20 sources)Obesity caused by energy imbalance; Translations: [Class 1 obesity due to excess calories with serious comorbidity and body mass index (BMI) of 33.0 to 33.9 in adult]Onset: 465165-85-2258NzfbpsmGyfci nutritional; endocrine; and metabolic disorders (10 sources)Obesity; Translations: [Obesity, unspecified]Onset: 03-19-2024 05-91-7683BtafsyqUyqxw screening for suspected conditions (not mental disorders or infectious disease) (4 sources)Patient encounter status; Translations: [Encounter for screening for malignant neoplasm of colon]14-24-0267CrcwhjueFuklb upper respiratory infections (1 source)Recurrent acute sinusitis; Translations: [Other acute recurrent sinusitis]70-91-7923TzjnuvwjRjnktetn codes; unclassified (20 sources)Obstructive sleep apnea syndrome; Translations: [Obstructive sleep apnea (adult) (pediatric)]Onset: 239980-41-4243VhdtprsVdjbzxsuikic (2 sources)Left knee pain, unspecified xidmrxoasq33-28-5859 Past or Other Problems Problem ClassificationProblemDateDocumented DateEpisodic/ChronicHeadache; including migraine (20 sources)Headache disorder; Translations: [Other headache syndrome]Onset: 021643-52-9483XqqhadboYqulycq and fatigue (1 source)Fatigue; Translations: [Other fatigue]40-94-2428NtkqpytrHtga disorders (20 sources)Mood disordersOnset: 10-15-2023 Resolved: Other gastrointestinal disorders (1 source)History of bariatric surgical procedure; Translations: [Bariatric surgery status]Onset: 086100-14-0920FzzzuuyaVrgjy nervous system disorders (16 sources)Tremor; Translations: [Tremor, unspecified]Onset: 12-03-2024 19-43-1250BsqhzozqRljmz nutritional; endocrine; and metabolic disorders (20 sources)Morbid obesity; Translations: [Morbid (severe) obesity due to excess calories]Onset: 09-21-2015 Resolved: 768658-71-5667TgnfldtFkwxolpel and history of mental health and substance abuse codes (1 source)Ex-cigarette smoker; Translations: [Personal history of nicotine dependence]06-35-5747DademmkwHkaozmkcyhb; intervertebral disc disorders; other back problems (20 sources)Chronic low back pain; Translations: [Chronic bilateral low back pain without sciatica]Onset: 118836-25-7188LiuqzevbCtebqrkqnyze (5 sources)Onset: 788148-00-4634Boghwznerfxs (1 source)Acute postoperative pain of left qrjd03-87-3681Dozqlnwwkywl (2 sources)History of left total knee -67-5791 Results Test NameValueInterpretationReference RangeFacilityCBCon 40-90-7856ODMLAFAA BAS 0.0 10*3/uLNormal0.0-0.2ARaritan Bay Medical Center, Old BridgeComment on above:Performed By: #### PTT, MG, PT, ACBC, CMPF #### Testing performed at [address] [address]PNDJBIIL EOS0.3 10*3/uLNormal0.0-0.7ARar[facility] [place] Comment on above:Performed By: #### PTT, MG, PT, ACBC, CMPF #### Testing performed at [address] [address]HIZSSGML NEUTROPHIL COUNT4.3 10*3/uLNormal1.4-6.5ARaritan Bay Medical Center, [place] BridgeComment on above:Performed By: #### PTT, MG, PT, ACBC, CMPF #### Testing performed at [address] [address]Seghfmrcv/100 WBC (Bld)0.3 %Normal0.0-2.0[facility] Comment on above:Performed By: #### PTT, MG, PT, ACBC, CMPF #### Testing performed at [address] [address]XFFNGJPKR DIFFNormalARaritan Bay Medical Center, [place] BridgeComment on above: Performed By: #### PTT, MG, PT, ACBC, CMPF #### Testing performed at [address] [address]Qhtcbmkqjth/100 WBC (Bld)3.7 %Normal0.0-11.0[facility] HospitalComment on above:Performed By: #### PTT, MG, PT, ACBC, CMPF #### Testing performed at [address] [address]Pndqeuhmlsm (Bld) [#/Vol]2.0 10*3/uLNormal1.2-3.4ARaritan Bay Medical Center, [place] BridgeComment on above:Performed By: #### PTT, MG, PT, ACBC, CMPF #### Testing performed at [address] [address]Yteydsulsql/100 WBC (Bld)26.9 %Vtodfb60.0-55.0[facility] HospitalComment on above:Performed By: #### PTT, MG, PT, ACBC, CMPF #### Testing performed at [address] [address]Xpgycapxt (Bld) [#/Vol]0.8 10*3/uLHigh0.0-0.7ALutheran Hospitalment on above:Performed By: #### PTT, MG, PT, ACBC, CMPF #### Testing performed at [address] [address]Knezddirw/100 WBC (Bld)11.0 %High0.0-10.0[facility] Comment on above:Performed By: #### PTT, MG, PT, ACBC, CMPF #### Testing performed at [address] [address]Ekimsbtzpft/100 WBC (Bld)58.1 %Ztaqkr45.0-75.0[facility]irt[facility] Marltonment on above:Performed By: #### PTT, MG, PT, ACBC, CMPF #### Testing performed at [address] [address]Rxkawkpzyht distribution width (RBC) [Ratio]13.4 %Normal 11.5-14.5ALutheran Hospitalment on above:Performed By: #### PTT, MG, PT, ACBC, CMPF #### Testing performed at [address] [address]Agobozjrrc (Bld) [Volume fraction]31.7 %Low36.0-48.0Virtua Marltonment on above:Performed By: #### PTT, MG, PT, ACBC, CMPF #### Testing performed at [address] [address]Osuoxexgwt (Bld) [Mass/Vol]10.7 g/dLLow12.0-16.0[facility] HospitalComment on above:Performed By: #### PTT, MG, PT, ACBC, CMPF #### Testing performed at [address] [address]TWW (RBC) [Entitic mass]31.6 mxJifcet41.0-35.0[facility] HospitalComment on above:Performed By: #### PTT, MG, PT, ACBC, CMPF #### Testing performed at [address] [address]HKBP (RBC) [Mass/Vol]33.9 g/fMTikrru20.0-37.0[facility] HospitalComment on above:Performed By: #### PTT, MG, PT, ACBC, CMPF #### Testing performed at [address] [address]ZDP (RBC) [Entitic vol]93.3 dNKscfzl84.0-100.0[facility] HospitalComment on above:Performed By: #### PTT, MG, PT, ACBC, CMPF #### Testing performed at [address] [address]Rkrfjpgl mean volume (Bld) [Entitic vol]8.2 fLNormal7.4-11.0 [facility] HospitalComment on above:Performed By: #### PTT, MG, PT, ACBC, CMPF #### Testing performed at [address] [address]Efpydkgnh (Bld) [#/Vol]462 10*3/oOEkre234-481RehmfShore Memorial HospitalComment on above:Performed By: #### PTT, MG, PT, ACBC, CMPF #### Testing performed at [address], [place] [address]HJZ (Bld) [#/Vol]3.40 10*6/uLLow4.0-5.4AMartinsville Memorial Hospital on above:Performed By: #### PTT, MG, PT, ACBC, CMPF #### Testing performed at [address] [address]YUY (Bld) [#/Vol]7.4 10*3/uLNormal3.6-11.0[facility] HospitalComment on above:Performed By: #### PTT, MG, PT, ACBC, CMPF #### Testing performed at [facility] [address] [facility], [place] [address]APT, EDIF, PLATELETon 25-39-7073FPXOIRKB BASOPHIL COUNT0.0 10*3/uL0.0 - 0.2 10*3/uLTuscarawas HospitalBasophils/100 WBC (Bld)0.3 %0.0 - 2.0 %[facility] HospitalDifferential cell count method Nom (Bld)AUTO DIFF%[facility]aw[facility] HospitalEosinophils (Bld) [#/Vol]0.3 10*3/uL0.0 - 0.7 10*3/uLTuscarawas HospitalEosinophils/100 WBC (Bld)3.7 %0.0 - 11.0 %[facility] HospitalErythrocyte distribution width (RBC) [Ratio]13.4 %11.5 - 14.5 %[facility] HospitalHematocrit (Bld) [Volume fraction]31.7 %Low36.0 - 48.0 %[facility] HospitalHemoglobin (Bld) [Mass/Vol]10.7 g/dLLowTuscarawas HospitalInterpretation and review of laboratory resultsAbnormKettering Health HamiltonLymphocytes (Bld) [#/Vol]2.0 10*3/uL1.2 - 3.4 10*3/uLTuscarawas HospitalLymphocytes/100 WBC (Bld)26.9 %20.0 - 55.0 %[facility] HospitalMCH (RBC) [Entitic mass]31.6 pg26.0 - 35.0 PGAZanesville City HospitalMCHC (RBC) [Mass/Vol]33.9 g/dLTuscarawas HospitalMCV (RBC) [Entitic vol]93.3 [facility] CenterMonocytes (Bld) [#/Vol]0.8 10*3/uLHigh0.0 - 0.7 10*3/uLTuscarawas HospitalMonocytes/100 WBC (Bld)11.0 %High0.0 - 10.0 %[facility] SystemNeutrophils (Bld) [#/Vol]4.3 10*3/uL1.4 - 6.5 10*3/[facility]cy HealthNeutrophils/100 WBC (Bld)58.1 %37.0 - 75.0 %[facility] HospitalPlatelet mean volume (Bld) [Entitic vol]8.2 [facility] SystemPlatelets (Bld) [#/Vol] 462 10*3/qTBuwh900 - 400 10*3/[facility] SystemRBC (Bld) [#/Vol]3.40 10*6/uL Low4.0 - 5.4 10*6/[facility]cy HealthWBC (Bld) [#/Vol]7.4 10*3/uL3.6 - 11.0 10*3/[facility] Greene MemorialCMP FASTINGon 04-17-2025:G RATIO 1.2 RATIONormalShore Memorial HospitalComment on above:Performed By: #### PTT, MG, PT, ACBC, CMPF #### Testing performed at [address] [address]Nbuyyzt [Mass/Vol]3.6 g/dLNormal3.5-5.0[facility] Comment on above:Performed By: #### PTT, MG, PT, ACBC, CMPF #### Testing performed at [address] [address]UYU [Catalytic activity/Vol]146 U/HWktk64-833AymyiShore Memorial HospitalComment on above:Performed By: #### PTT, MG, PT, ACBC, CMPF #### Testing performed at [address] [address]CEP [Catalytic activity/Vol]15 U/LNormal<35[facility] HospitalComment on above:Performed By: #### PTT, MG, PT, ACBC, CMPF #### Testing performed at [address] [address]UUD [Catalytic activity/Vol]24 U/EUmbwmy61-30UzqjpShore Memorial HospitalComment on above:Performed By: #### PTT, MG, PT, ACBC, CMPF #### Testing performed at [address] [address]Rsiwehxvx [Mass/Vol]0.8 mg/dLNormal0.2-1.3ARaritan [facility] Center, [place] BridgeComment on above:Performed By: #### PTT, MG, PT, ACBC, CMPF #### Testing performed at [address] [address]Fjkmrdg [Mass/Vol]9.5 mg/dLNormal8.4-10.2ARar[facility], [place] Comment on above:Performed By: #### PTT, MG, PT, ACBC, CMPF #### Testing performed at [address] [address]Sfxhlasj [Moles/Vol]105 mmol/JGaqosd14-955EgoazShore Memorial HospitalComment on above:Result Comment: Please note: Triglyceride levels of 600mg/dL or higher may positively bias chlorideresults by approximately 2.1 mmol Performed By: #### PTT, MG, PT, ACBC, CMPF #### Testing performed at [address] [address]SF7 [Moles/Vol]23 mmol/IHbeycc80-57JcgouShore Memorial Hospital Comment on above:Performed By: #### PTT, MG, PT, ACBC, CMPF #### Testing performed at [address] [address]Djnqzoxtuq [Mass/Vol]0.60 mg/dLLow0.70-1.20[facility] HospitalComment on above:Performed By: #### PTT, MG, PT, ACBC, CMPF #### Testing performed at [address] [address]SKV InformationAverage GFR for 50-59 years old = 93.NormalShore Memorial HospitalComment on above:Result Comment: Chronic Kidney disease, GFR = <60. Kidney failure, GFR = <15. The GFR estimate is not adjusted for extreme body surface area or acute process, nor has it been validated for women or ethnic groups other than and . MDRD EquationPerformed By: #### PTT, MG, PT, ACBC, CMPF #### Testing performed at [address] [address]EZN/1.73 sq M.predicted MDRD (S/P/Bld) [Vol rate/Area]109 mL/min/{1.73_m2}NormalShore Memorial HospitalComment on above:Performed By: #### PTT, MG, PT, ACBC, CMPF #### Testing performed at [address] [address]Qlfvhfs [Mass/Vol]122 mg/aALjqj83-159DfnkkShore Memorial Hospital Comment on above:Result Comment: NORMAL <100 mg/dL PREDIABETES 101-126 mg/dL DIABETES 126 mg/dL or higherPerformed By: #### PTT, MG, PT, ACBC, CMPF #### Testing performed at [address] [address]Kxmrrhzhg [Moles/Vol]3.0 mmol/LLow3.5-5.1ARaritan [facility] [place] Comment on above:Performed By: #### PTT, MG, PT, ACBC, CMPF #### Testing performed at [address] [address]Luulgzm [Mass/Vol]6.6 g/dLNormal6.3-8.2ARar[facility] [place] Comment on above:Performed By: #### PTT, MG, PT, ACBC, CMPF #### Testing performed at [address] [address]Dopews [Moles/Vol]140 mmol/NKlbiwr637-565LsmjmShore Memorial Hospital Comment on above:Performed By: #### PTT, MG, PT, ACBC, CMPF #### Testing performed at [address] [address]Lsfg nitrogen [Mass/Vol]7 mg/dLNormal7-20[facility] Comment on above:Performed By: #### PTT, MG, PT, ACBC, CMPF #### Testing performed at [address] [address]DPEHVJYGIQZAS METABOLIC PANELon 09-92-8886Xrlgjja [Mass/Vol]3.6 g/dL3.5 - 5.0 g/dLLake County Memorial Hospital [facility] West SystemAlbumin/Globulin [Mass ratio]1.2 {ratio} RATIOTuscarawas HospitalALP [Catalytic activity/Vol]146 U/LHigh38 - 126 U/[facility] CenterALT [Catalytic activity/Vol]15 U/LNINF - 35 U/[facility] AST [Catalytic activity/Vol]24 U/L14 - 36 U/[facility] Medical CenterBilirubin [Mass/Vol]0.8 mg/dL0.2 - 1.3 mg/dLTuscarawas HospitalCalcium [Mass/Vol]9.5 mg/dL 8.4 - 10.2 mg/dLTuscarawas HospitalChloride [Moles/Vol]105 mmol/[facility] Medical CenterComment on above:Please note: Triglyceride levels of 600mg/dL or higher may positively bias chloride results by approximately 2.1 mmolCO2 [Moles/Vol]23 mmol/[facility] CenterCreatinine [Mass/Vol]0.60 mg/dLLow0.70 - 1.20 mg/dL [facility] HospitalGFR COMMENTAverage GFR for 50-59 years old = 93.[facility] HospitalComment on above:Chronic Kidney disease, GFR = <60. Kidney failure, GFR = <15. The GFR estimate is not adjusted for extreme body surface area or acute process, nor has it been validated for women or ethnic groups other than and . MDRD Equation GFR/1.73 sq M.predicted MDRD (S/P/Bld) [Vol rate/Area]109 mL/min/{1.73_m2} ml/min/1.73sq.[facility] HospitalGlucose post fast [Mass/Vol]122 mg/dLHighTuscarawas HospitalComment on above: NORMAL <100 mg/dL PREDIABETES 101-126 mg/dL DIABETES 126 mg/dL or higher Interpretation and review of laboratory resultsAbnormalAZanesville City Hospital Potassium [Moles/Vol]3.0 mmol/LLowABellevue Hospital SystemProtein [Mass/Vol]6.6 g/dL 6.3 - 8.2 g/dLOhio State University Wexner Medical Centerodium [Moles/Vol]140 mmol/[facility] Urea nitrogen [Mass/Vol]7 mg/dL7 - 20 mg/dLTuscarawas HospitalCT ABDOMEN/PELVIS WITH CONTRASTon 18-01-2371RZ ABDOMEN/PELVIS WITH CONTRASTCT OF THE ABDOMEN AND PELVIS WITH CONTRAST: [...] No body wall mass. OSSEOUS STRUCTURES: Unremarkable. IMPRESSION: 1. Moderate compact feces throughout. Possible constipation. 2. No acute findings or inflammatory change. 3. Prior gastric bypass.[facility] Abdomen and Pelvis W contrast Angelina 90-04-5243HRFRBXXVMP: 1. Moderate compact feces throughout. Possible constipation. 2. No acute findings or inflammatory change. 3. Prior gastric bypass. RADIOLOGYCT OF THE ABDOMEN AND PELVIS WITH CONTRAST: [...] No body wall mass. OSSEOUS STRUCTURES: Unremarkable. RADIOLOGYRakan Cheema, DO - 04/17/2025 CT OF THE [...] or inflammatory change. 3. Prior gastric bypass. [facility] HospitalRadiology Study observation (narrative)[facility] Abdomen and Pelvis W contrast IVOrdered By: Rakan Cheema on 54-18-9005DaskpZanesville City Hospital Work Phone: AZCTATE, BLOODon 65-37-1579Sxniqyhmwekfqf and review of laboratory resultsAbnormKettering Health HamiltonLactate [Moles/Vol]2.6 mmol/L Critically high0.7 - 2.0 mmol/[facility] SystemComment on above:PLEASE REPEAT INITIAL CRITICAL IN 3 HOURS IF ED OR INPATIENT SEPSIS PATIENT Result called to read back by: Bessy DE LA CRUZ 04/17/2025 @ 01:08 by [facility] HospitalCTATE,BLOODon 11-29-2617Dfknphz [Moles/Vol]2.6 mmol/L Critically high0.7-2.0[facility] HospitalComment on above:Result Comment: PLEASE REPEAT INITIAL CRITICAL IN 3 HOURS IF ED OR INPATIENT SEPSIS PATIENT Result called to read back by: Bessy DE LA CRUZ 04/17/2025 @ 01:08 by [facility] PHILADELPHIAerformed By: #### PT #### Testing performed at [address] [address]YIWYYEDBHaz 52-35-1416Hiakesqbe [Mass/Vol]1.7 mg/dLTuscarawas HospitalMagnesium [Mass/Vol]1.7 mg/dLNormal1.6-2.3ARaritan Bay Medical Center, [place] BridgeComment on above:Performed By: #### PTT, MG, PT, ACBC, CMPF #### Testing performed at [address], [place] [address]Rq Panel Informationon 29-14-2997YfypbGalion Community HospitalPROTIMEon 16-46-3679YTF Coag (PPP) [Relative time]0.95 {INR}Normal 0.85-1.10ARaritan Bay Medical Center, [place] BridgeComment on above:Result Comment: 2.0-3.0 THERAPEUTIC RANGE 2.5-3.5 MECHANICAL VALVE RANGEPerformed By: #### PTT, MG, PT, ACBC, CMPF #### Testing performed at [address] [address]GI Coag (PPP) [Time]12.7 fOfuinu73.8-14.4ARaritan [facility] Center, [place] Comment on above:Performed By: #### PTT, MG, PT, ACBC, CMPF #### Testing performed at [address], [place] [address]TKCBNIA-XVAgr 97-29-5634WIM Coag (PPP) [Relative time]0.95 {INR}0.85 - 1.10AZanesville City HospitalComment on above: 2.0-3.0 THERAPEUTIC RANGE 2.5-3.5 MECHANICAL VALVE RANGE PT Coag (PPP) [Time]12.7 [facility] CenterPTAri[facility] Hospital 57-32-5286oJUB Coag (Bld) [Time]33.5 [facility] CenterComment on above: CARDIAC AND PE/DVT THERAPUTIC RANGE 69-97 SEC VASCULAR/THREATENED LIMB THERAPUTIC RANGE 80-112 SEC aPTT Coag (Bld) [Time]33.5 cRlwlcc46.4-34.7ARaritan Bay Medical Center, [place] BridgeComment on above:Result Comment: CARDIAC AND PE/DVT THERAPUTIC RANGE 69-97 SEC VASCULAR/THREATENED LIMB THERAPUTIC RANGE 80-112 SECPerformed By: #### PTT, MG, PT, ACBC, CMPF #### Testing performed at [address] [address]SD KNEE LEFT 1-2 VIEWSon 38-78-9510XA KNEE LEFT 1-2 VIEWSEXAM: XR KNEE LEFT 1-2 VIEWS HISTORY: postop COMPARISON: None. IMPRESSION: 1. No acute fracture or malalignment. 2. Arthroplasty. No evidence of acute hardware complication. Postsurgical changes within the adjacent soft tissues. 3. Tiny quadriceps enthesophyte.NormalShore Memorial HospitalRAPID TOX SCREEN,URINEon 01-56-1672FBGWBCJBDALLbhlfscmJrwvdrQCNMCRJQMomnq [facility] Comment on above:Result Comment: <500 ng/ml CUTOFFPerformed By: #### PT #### Testing performed at [address] [address]UTHFNBBMZPRCBcsemchzWleaolTWAIHZOVOejif [facility] HospitalComment on above:Result Comment: <200 ng/ml CUTOFFPerformed By: #### PT #### Testing performed at [address] [address]NQSJISHOHKEDAPSOjmaqcedLtbnujmpSAYXAPZBWeucl [facility] Comment on above:Result Comment: <200 ng/ml CUTOFF *Unconfirmed Screening Result* Unconfirmed screening results are to be used only for medical treatment purposes.Performed By: #### PT #### Testing performed at [address] [address]TIJNRDOMAKEPFGfuxdbcgYmcraoUZCKDUJFXpftb [facility] Comment on above:Result Comment: <10 ng/ml CUTOFFPerformed By: #### PT #### Testing performed at [address] [address]PLMVRXQCXTVSFfswzberNipgrlqbMSMOMHDIYpaze [facility] Comment on above:Result Comment: <50 ng/ml CUTOFF *Unconfirmed Screening Result* Unconfirmed screening results are to be used only for medical treatment purposes.Performed By: #### PT #### Testing performed at [address] [address]XVTKHNEEfycvfhjYxsibiQCOXWPOFHylqvBoston SanatoriumComment on above:Result Comment: <150 ng/ml CUTOFFPerformed By: #### PT #### Testing performed at [address] [address]LWFUOBRBOchkwilnMlbdbzBXYTMMIFTxvta [facility] HospitalComment on above:Result Comment: 1.0 ng/mL CUTOFF *Unconfirmed Screening Result* Unconfirmed screening results are to be used only for medical treatment purposes. This test has not been approved by the FDA. Performed By: #### PT #### Testing performed at [address], [place] [address]QTUVXJVPF METABOLITENegativeNormalNEGRobert Wood Johnson University HospitalComment on above:Result Comment: <100 ng/ml CUTOFFPerformed By: #### PT #### Testing performed at [address] [place] [address]WAZSENHJDOAQSULVmrswntnLxmfnjNRVCSCGZNcibw [facility] Comment on above:Result Comment: <500 ng/ml CUTOFFPerformed By: #### PT #### Testing performed at [address] [address]HYROXXZFfpaqudsUoqsqvFVVDIHMNDbxwy [facility] HospitalComment on above:Result Comment: <300 ng/ml CUTOFFPerformed By: #### PT #### Testing performed at [address] [place] [address]RLDQQCQMUTpkcruytYceatxVCAWEMSVQonta [facility] HospitalComment on above:Result Comment: <100 ng/ml CUTOFFPerformed By: #### PT #### Testing performed at [address] [place] [address]YWPWNPQRZ ANTIDEPRESSANTSNegativeNormalNEGRobert Wood Johnson University HospitalComment on above:Result Comment: <1000 ng/ml CUTOFFPerformed By: #### PT #### Testing performed at [address], [place] [address]SLDCISUJTA DRUG SCREEN, URINEon 62-23-2253Yqjdtowjqzue Screen Ql (U)NegativeNEGATIVE NG/MLAvita Health SystemComment on above:<500 ng/ml CUTOFFBarbiturates Screen Ql (U)NegativeNEGATIVE NG/MLAvita Health SystemComment on above:<200 ng/ml CUTOFFBenzodiazepinesPositiveAbnormalNEGATIVE NG/MLAvita Health SystemComment on above:<200 ng/ml CUTOFF *Unconfirmed Screening Result* Unconfirmed screening results are to be used only for medical treatment purposes. BuprenorphineNegativeNEGATIVE NG/MLColorado Acute Long Term HospitalMojoPages SystemComment on above:<10 ng/ml CUTOFFCannabinoids Screen Ql (U)PositiveAbnormalNEGATIVE NG/MLColorado Acute Long Term Hospitalta [facility] SystemComment on above:<50 ng/ml CUTOFF *Unconfirmed Screening Result* Unconfirmed screening results are to be used only for medical treatment purposes. CocaineNegativeNEGATIVE NG/MLColorado Acute Long Term Hospitalta [facility] SystemComment on above:<150 ng/ml CUTOFFFentanylNegativeNEGATIVE NG/MLColorado Acute Long Term Hospitalta [facility] SystemComment on above:1.0 ng/mL CUTOFF *Unconfirmed Screening Result* Unconfirmed screening results are to be used only for medical treatment purposes. This test has not been approved by the FDA. Interpretation and review of laboratory resultsAbnoMagruder Hospital Methadone+Metabolite Screen Ql (U)NegativeNEGATIVE NG/MLColorado Acute Long Term HospitalMojoPages System Comment on above:<100 ng/ml CUTOFFMethamphetamine Ql (U)NegativeNEGATIVE NG/ML [facility] HospitalMojoPages SystemComment on above:<500 ng/ml CUTOFFOpiates Ql (U)Negative NEGATIVE NG/MLColorado Acute Long Term HospitalMojoPages SystemComment on above:<300 ng/ml CUTOFFOxycodone ConfirmationNegativeNEGATIVE NG/MLColorado Acute Long Term HospitalMojoPages SystemComment on above:<100 ng/ml CUTOFFTricyclic Antidepressants, UrineNegativeNEGATIVE NG/MLColorado Acute Long Term HospitalMojoPages System Comment on above:<1000 ng/ml CUTOFFColorado Acute Long Term HospitalMojoPages [facility] HospitalCMP Standardon 03-08-2025 eGFR Non AA>60Invalid Interpretation [facility] HospitalComment on above: Performed By: #### [id number], [id number], 2625265, 4688678, 2553208, [id number], 4889948 #### [facility] (DEFAULT) [address] [place] [address] 94530lBIE AA>60Invalid Interpretation [facility] Comment on above:Performed By: #### [id number], [id number], 3105777, 6551251, 5867004, [id number], 4461158 #### [facility] (DEFAULT) [address] [place] [address]Bimwdrh [Mass/Vol]3.6 g/dLNormal3.5-5.0[facility] Comment on above:Performed By: #### [id number], [id number], 5053588, 5509339, 0049832, 4307516554, 7089010 #### [facility] (DEFAULT) [address] [place] [address]Yyp Phos92 IU/HUqqi70-85Okjprrjf HospitalComment on above: Performed By: #### [id number], [id number], 3947390, 8986264, 4031978, [id number], 1492695 #### [facility] (DEFAULT) [address] [place] [address] 99069OBV [Catalytic activity/Vol]13.0 U/LLow14.0-54.0[facility] HospitalComment on above:Performed By: #### 1598197, [id number], 3159577, 4960201, 2641189, [id number], 0917114 #### [facility] (DEFAULT) [address] [place] [address] 20160RGU [Catalytic activity/Vol]18 U/QGrflll07-64Ohueefxy HospitalComment on above:Performed By: #### 3797854, [id number], 9032173, 4655000, 1122187, 2247716156, 9257545 #### [facility] (DEFAULT) [address] [place] [address] 24292Ogzg Total0.8 mg/dLNormal0.3-1.2Mlakehealth beachwood medical center HospitalComment on above:Performed By: #### 7938017, [id number], 4482845, 8285722, 8385261, 4807884758, 6812910 #### [facility] (DEFAULT) [address] [place] [address] 22682Giasqdx [Mass/Vol]9.1 mg/dLNormal8.9-10.3Mlakehealth beachwood medical center Hospital Comment on above:Performed By: #### 0817095, [id number], 0140435, 4348805, 3677942, 1692933818, 4840679 #### [facility] (DEFAULT) [address] [place] [address] 56679Rvhggyxj [Moles/Vol]102 mmol/JQtqkwn704-743Ijtojykn HospitalComment on above:Performed By: #### 9718389, [id number], 3810943, 7672038, 9261989, 5147726746, 9350369 #### [facility] (DEFAULT) [address] [place] [address] 78718AA3 [Moles/Vol]26 mmol/KSfwcdr66-11Vwqmdrtg Hospital Comment on above:Performed By: #### 6422269, [id number], 7813201, 8576114, 0615736, 0321125767, 1595423 #### [facility] (DEFAULT) [address] [place] [address] 74965Vcxbrnjbrr [Mass/Vol]0.63 mg/dLNormal0.60-1.30[facility] HospitalComment on above:Performed By: #### 9554801, [id number], 0421793, 4233936, 3965314, 5492087609, 1205284 #### [facility] (DEFAULT) [address] [place] [address] 78237Wzrzaaz [Mass/Vol]76.0 mg/mGFfpbqx51.0-118.0[facility] HospitalComment on above:Performed By: #### 5851546, [id number], 1497166, 0883022, 8238134, 1409532468, 4621401 #### [facility] (DEFAULT) [address] [place] [address] 732[address]Mudvafilr [Moles/Vol]3.7 mmol/LNormal3.6-5.1Mlakehealth beachwood [facility] center HospitalComment on above:Performed By: #### 2059373, [id number], 2389616, 0482876, 6582508, 2288836098, 8588637 #### [facility] (DEFAULT) [address] [place] [address] 09151Cwognsw [Mass/Vol]6.6 g/dLNormal6.5-8.1Mlake[facility] Hospital Comment on above:Performed By: #### 4166726, [id number], 5873102, 1379202, 3561288, 9688656727, 6629170 #### [facility] (DEFAULT) [address] [place] [address] 42437Ipzjpx [Moles/Vol]134.0 mmol/OSyy005.0-144.0Masouthwest general health center HospitalComment on above:Performed By: #### 1114553, 5381026837, 2855997, 3466712, 3910022, 9865846993, 8104546 #### [facility] (DEFAULT) [address] [place] [address] 20331Dtfe nitrogen [Mass/Vol]10 mg/dLNormal8-26Masouthwest general health center HospitalComment on above:Performed By: #### 3900671, 7036222734, 3252503, 3449236, 9553804, 0423997727, 0994946 #### [facility] (DEFAULT) [address] [place] [address] 96667Ltfidsn/Globulin [Mass ratio]1.2 {ratio}Low1.4-2.6Magrpremier health miami valley hospital south HospitalComment on above:Performed By: #### 9838837, 9945702394, 3741379, 0214811, 4281727, 6197623394, 5563970 #### [facility] (DEFAULT) [address] [place] [address] 09476Yrdqz gap [Moles/Vol]9.7 mmol/LNormal5.0-19.0Masouthwest general health center HospitalComment on above:Performed By: #### 5987722, 2155213639, 7094486, 2575893, 1985522, 9362461704, 1354802 #### [facility] (DEFAULT) [address] [place] [address] 27068Lkcoecci (S) [Mass/Vol]3.0 g/dLNormal1.5-4.3Magrpremier health miami valley hospital south HospitalComment on above:Performed By: #### 1547257, 0160960588, 0014576, 4448549, 9557109, 5098476673, 2496953 #### [facility] (DEFAULT) [address] [place] [address] 73786Tndlkpakcq343 mOsm/LInvalid Interpretation CodeCincinnati Children'S Hospital Medical Center HospitalComment on above:Performed By: #### 5966104, 1272332494, 9684349, 8959119, 7646492, 1488863359, 9930429 #### [facility] (DEFAULT) [address] [place] [address] 90436Mknh nitrogen/Creatinine [Mass ratio]15.8 mg/mgNormal 4.6-16.2Mlakehealth beachwood medical center HospitalComment on above:Performed By: #### 4566380, 7241751363, 5617561, 3550137, 4965903, 8653598260, 2246500 #### [facility] (DEFAULT) [address] [place] [address] 845[address]HUWur 09-55-8920Likee glutamyl transferase [Catalytic activity/Vol]35.0 U/LNormal7.0-50.0[facility] HospitalComment on above:Performed By: #### 3330985, [id number], 1718794, 7872634, 3463007, 2610344593, 9510627 #### [facility] (DEFAULT) [address] [place] [address] 14081Optz Levelon 93-04-2328Pbqa [Mass/Vol]47.0 ug/dLNormal 28.0-170.0[facility] HospitalComment on above:Performed By: #### 0653045, 9746713686, 8740258, 5698029, 6877669, 4738413350, 0012525 #### [facility] (DEFAULT) [address] [place] [address] 36728VGFrc 96-75-2302JHA306.0 IU/SRkbfgf66.0-192.0[facility] HospitalComment on above:Performed By: #### 7674707, 1460552953, 5476823, 7542842, 7774773, 0787140851, 2660875 #### [facility] (DEFAULT) [address] [place] [address] 70886Bdhet Panel Standardon 53-15-6834Qklcwdfkdtk [Mass/Vol] 180.0 mg/lXChicyz25.0-200.0[facility] HospitalComment on above:Performed By: #### 0725901, 0476336088, 4807530, 8690271, 2675879, 2358470523, 8999860 #### [facility] (DEFAULT) [address] [place] [address] 26936Jttvnavcbce in HDL [Mass/Vol]54 mg/pWGifmwb50-46Ummnuhaa HospitalComment on above:Performed By: #### 7721855, 9550626467, 4775515, 1878124, 0134808, 2366461668, 6770545 #### [facility] (DEFAULT) [address] [place] [address] 81360Jrshturgoxcn [Mass/Vol]137.0 mg/dLNormal0.0-150.0[facility] HospitalComment on above:Performed By: #### 2411066, 0392300923, 4654598, 6003423, 6348361, 8343406948, 6798702 #### [facility] (DEFAULT) [address] [place] [address] 27140Abwfaoxixvj in LDL [Mass/Vol]98 mg/dLNormal1-100[facility] HospitalComment on above:Performed By: #### 8394633, 4389749439, 2978725, 8747698, 2237208, 0810634701, 6748239 #### [facility] (DEFAULT) [address] [place] [address] 91819Pjonsdigbrp.total/Cholesterol in HDL [Mass ratio]3.3 {ratio}Normal0.0-4.5[facility] HospitalComment on above:Performed By: #### 2650196, 7852715359, 7550817, 7324889, 5664608, 5598876522, 2410075 #### [facility] (DEFAULT) [address] [place] [address] 70506TIYX.27 mg/dLNormal5-40[facility] HospitalComment on above: Performed By: #### 2046002, 3811142430, 5536435, 6740858, 1638210, 3502976301, 4804345 #### [facility] (DEFAULT) [address] [place] [address] 24245Kcuyps 61-27-5577Umnfrcwwf [Mass/Vol]3.0 mg/dLNormal 2.5-4.6Magrpremier health miami [facility] HospitalComment on above:Performed By: #### 6977414, 5699526283, 3876206, 0083712, 9395614, 2565209441, 0763362 #### [facility] (DEFAULT) [address] [place] [address] 058[address]Rmgb Acidon 01-88-5074Nodab [Mass/Vol]4.8 mg/dLNormal 2.6-8.0Masouthwest general health center HospitalComment on above:Performed By: #### 0436691, [id number], 7127715, 3912668, 7113689, 5124604609, 7226056 #### [facility] (DEFAULT) [address] [place] [address] 64190CFCEHNKBAS A1Con 16-12-9075Zplpyhx [Mass/Vol]111 mg/dL NormalShore Memorial HospitalComment on above:Performed By: #### PT #### Testing performed at [address] [address]GkP9q (Bld) [Mass fraction]5.5 %[address] Comment on above:Result Comment: NORMAL <5.7% PREDIABETES 5.7-6.4% DIABETES 6.5% OR HIGHERPerformed By: #### PT #### Testing performed at [address] [address]RUTR SCREENon 62-76-3284DHRL DNA NORAH+probe Ql (Unsp spec) NegativeNormalNEGRobert Wood Johnson University HospitalComment on above:Performed By: #### MRSAST #### Testing performed at [address] [address]VMOTG AUREUS SCREENNegativeNormalNEGRobert Wood Johnson University Hospital Comment on above:Result Comment: TESTING PERFORMED BY PCRPerformed By: #### MRSAST #### Testing performed at [address] [place] [address]JGWXFPJsa 52-84-3867PJF Coag (PPP) [Relative time]0.89 {INR} Normal0.85-1.10ARaritan Bay Medical Center, Old BridgeComment on above:Result Comment: 2.0-3.0 THERAPEUTIC RANGE 2.5-3.5 MECHANICAL VALVE RANGEPerformed By: #### PT #### Testing performed at [address] [address]XR Coag (PPP) [Time]12.1 rZgbldy23.8-14.4ARaritan [facility] [place] Comment on above:Performed By: #### PT #### Testing performed at [address] [place] [address]WBEZO MACROSCOPICon 40-73-9497Ywzzcayve Ql (U)NegativeNormal NEGATIVEShore Memorial HospitalComment on above:Performed By: #### UMAC #### Testing performed at [address] [address]Ciywwvo (U)CLEARNormalCLEARShore Memorial HospitalComment on above:Performed By: #### UMAC #### Testing performed at [address], [place] [address]Szell (U)YELLOWNormalYELLOWShore Memorial HospitalCombronson methodist hospital on above:Performed By: #### UMAC #### Testing performed at [address] [place] [address]Whxhibx Ql (U)NegativeNormalNEGRobert Wood Johnson University Hospital Comment on above:Performed By: #### UMAC #### Testing performed at [address], [place] [address]pU (U)6.0 [pH]Normal5.0-7.0Shore Memorial HospitalComment on above:Performed By: #### UMAC #### Testing performed at [address] [place] [address]KNXMN HEMOGLOBINNegativeNormalNEGRobert Wood Johnson University Hospital Comment on above:Performed By: #### UMAC #### Testing performed at [address] [place] [address]UFFEA KETONENegativeNormalNEGATIVEShore Memorial HospitalComment on above:Performed By: #### UMAC #### Testing performed at [address] [address]UZQTO LEUKOTESTNegativeNormalNEGRobert Wood Johnson University Hospital Comment on above:Performed By: #### UMAC #### Testing performed at [address] [address]OTFTE NITRATESNegativeNoatrium healthNEGRobert Wood Johnson University Hospital Comment on above:Performed By: #### UMAC #### Testing performed at [address] [address]PUYYQ SPEC GRAVITY<1.218Iqm6.010-1.025[facility] Comment on above:Performed By: #### UMAC #### Testing performed at [address] [address]CKSOX TOTAL PROTEINNegativeNoUniversity of New Mexico Hospitals Comment on above:Performed By: #### UMAC #### Testing performed at [address] [address]Nbqcblndabre Qn (U)0.2 {Rabia'U}/dLNormal0.2-1.0Shore Memorial HospitalComment on above:Performed By: #### UMAC #### Testing performed at [address] [address]Moyx Management Office/Clinic Noteon [phone] Management Office/Clinic NoteChief Complaint bilateral knee pain History of Present Illness Patient presents today for evaluation regarding chronic knee pain. Patient does report knee pain severe enough to affect activities day living and quality of life. Patient reports moderate improvement of knee pain with previous intra- articular knee injection performed June 18, 2024 with relief lasting several months. Patient requesting repeat injection on today's encounter Patient has engaged in a 6 week course of provider directed, home based physiological therapies within the last 3 months. In addition, a six-week trial of activity modification has failed to give reprieve. Patient has also failed to respond optimally to oral analgesic regimen Oswestry Disability Form AM Behavior: Same PM Pain Intensity: The pain is very severe at the moment PM Last utox: 06-11-23 consistent Day Progresses Behavior: Same PM Personal Care: I can look after myself but it causes extra pain PM Last ORT/Med Mgmt Agreement: 06/18/24 PM Behavior: Same PM Sitting: Pain prevents me from sitting more than one hour Pain location and laterality: bilateral knee pain PM Pain Lifting: I can lift heavy weights, but it gives me extra pain Pain quality: Aching, Dull, Sharp PM Walking: Pain prevents me from walking more than 100 yards Pain Pattern: Constant PM Standing: I can stand as long as I want, but it gives me extra pain Pain rate at rest: 3 PM Sleeping: Because of pain I have less than 4 hours of sleep Pain rate with activity: 10 PM Sex Life: My sex life is normal and causes no pain/NA Assistive Devices: Alleviating PM Social Life: Pain has restricted my social life and I do not go out as often Sitting: Aggravating PM Traveling: I can travel anywhere but it gives me extra pain Standing: Aggravating PM Oswestry Score: 38 Transitioning: Aggravating PM Oswestry Score Interpretation: 21% to 40% Moderate Disability: The patient experiences more painand difficulty with travel, social life, sitting, lifting and standing, and may be disabled from work. The patient can usually be managed by conservative means. Walking: Alleviating Sensory impairment location: numbness in bilateral thighs Pain since last visit: Worse Procedure 1: Clinic Injection Procedure Date 1: 06/18/24 Procedure Comments 1: BILATERAL INTRAARTICULAR KNEE INJECTION Pain Improvement 1: Moderate (35-65% relief) Pain Improvement Comments 1: MODERATE RELIEF X 1 MONTH Date Tens: current Frequency TENS: daily Comments TENS: at home unit Date Chiropractor: hx Date PT: hx Date Injections: prn Date Surgery: 1999 Frequency Surgery: x1 Effective Surgery: L1, L2 laminectomy Comments Surgery: Dr. Burr in [place] Comments Other: HEP - none Recent testing: No Loss of bladder/bowel: Denies Demeanor: Pleasant Distress: None Appearance: Appropriate Cognitive impairment: No Feels safe at home: Yes Suicidal/homicidal ideation: No Review of Systems A review of systems was conducted and noted to be negative to the patients presenting complaint unless delineated in HPI. Full details are available on form PM-82 completed by the patient and added to the record on today?s date Denies loss of control of bowel and bladder or saddle paresthesia. Denies suicidal ideation or plan Physical Exam Vitals & Measurements HR: 60 (Peripheral) RR: 18 BP: 130/91 HT: 170 cm General -Appears stated age. No apparent distress. Psychological - Normal mood and affect. HEENT - Normocephalic/Atraumatic Neurologic-alert and oriented x4 Respiratory - No obvious distress, No shortness of breath. Pain with range of motion bilateral knees. No erythema, warmth or swelling appreciated to joint Additional Vitals BP Position/Location: Sitting Assessment/Plan Bilateral knee pain Procedure ? Intraarticular injection of the (Right and Left) Knee Indication ? Procedure: Risks, Benefits, and Alternatives of the procedure were reviewed. All questions were answered appropriately, and informed consent was obtained both written and verbal prior to the procedure. Patient was placed in the sitting position with knees flexed to a position of comfort. Landmarks were palpated for an anterior approach above the tibial tuberosity of the (Right and Left) knee. The area was prepped with alcohol and draped in usual clean fashion. Then 27 gauge needle was passed into the kneeatraumatically. At this point, a total of 4ml 0.25% Marcaine combined with 40 mg of Kenalog was slowly injected after negative aspiration. The procedure was performed in the same fashion for the other knee. The procedure was concluded with withdrawal of the needles and placement of a sterile bandage as needed. The patient tolerated the procedure well. Post procedure vital signs were taken and noted to be stable and the patient was observed in the pain management clinic for 10min without adversesequela. The patient was released to their own accord and tracy (more content not included)... NormalNationwide Children'S HospitalPain Mgmt Tox Scnon 12-70-9838Jpnl Management Tox ScreenSee ReportNormalNationwide Children'S HospitalComment on above:Order Comment: SENT 06/19/2024 14:12:59 EST GSResult Comment: Missing Attachment Chartable Reference Lab Reports Can be viewed in source system Performed By: #### [id number] #### [address] [address]Xfoi Management Office/Clinic Noteon [phone] Management Office/Clinic NoteChief Complaint low back & bilateral knee pain-L>R History of Present Illness Presents today for evaluation regarding chronic low back pain as well as bilateral knee pain. Patient reports greater than 80% improvement of knee pain with previous intra-articular knee injections last performed in September 2023 with 80% improvement of pain lasting greater than 3 months. Requesting repeat injection on today's encounter Patient has engaged in a 6 week course of provider directed, home based physiological therapies within the last 3 months. In addition, a six-week trial of activity modification has failed to give reprieve. Patient has also failed to respond optimally to oral analgesic regimen Opioid Risk Assessment Oswestry Disability Form AM Behavior: Same Family History of Substance Abuse: None PM Pain Intensity: The pain is very severe at the moment PM Last utox: 06-11-23 consistent Day Progresses Behavior: Same Personal History of Substance Abuse: None PM Personal Care: I can look after myself without causing extra pain PM Last ORT/Med Mgmt Agreement: 06/18/24 PM Behavior: Same Age Between 16 and 45: No PM Sitting: Pain prevents me from sitting more than one hour Pain location and laterality: low back & bilateral knee pain-L>R History of Preadolescent Sexual Abuse: No PM Pain Lifting: Pain prevents me from lifting heavy weights, but I can manage light to medium weights if they are convieniently positioned Pain quality: Aching, Sharp Mental Health Condition: No PM Walking: Pain prevents me from walking more than 100 yards Pain Pattern: Constant Depression: Yes PM Standing: Pain prevents me from standing form more than 30 minutes Pain rate at rest: 8 Total Opioid Risk Score: 1 PM Sleeping: Because of pain I have less than 4 hours of sleep Pain rate with activity: 8 Total Score Risk Category: Low risk PM Sex Life: My sex life is normal and causes no pain/NA Bending: Aggravating PM Social Life: Pain has no significant effect on my social life apart from limiting my more energetic interests eg, sports Cold/Ice: Alleviating PM Traveling: I can travel anywhere but it gives me extra pain Heat: Alleviating PM Oswestry Score: 42 Lifting: Aggravating PM Oswestry Score Interpretation: 41% to 60% Severe Disability: Pain remains the main problem in this group but activities of daily living are affected. These patients require a detailed investigation. Lying: Alleviating Medications: Alleviating Sitting: Alleviating Standing: Aggravating Walking: Aggravating Sensory impairment location: denies Pain since last visit: Worse Date Tens: current Frequency TENS: 2-3 xweek Effective TENS: helps-low back Date Chiropractor: hx Date PT: hx Comments PT: HEP-stretching Date Injections: prn Date Surgery: 1999 Frequency Surgery: x1 Effective Surgery: L1, L2 laminectomy Comments Surgery: Dr. Burr in [place] Recent testing: No Loss of bladder/bowel: Denies Demeanor: Pleasant Distress: None Appearance: Appropriate Cognitive impairment: No Feels safe at home: Yes Suicidal/homicidal ideation: No Family History of Substance Abuse: None Personal History of Substance Abuse: None Age Between 16 and 45: No History of Preadolescent Sexual Abuse: No Mental Health Condition: No Depression: Yes Total Opioid Risk Score: 1 Total Score Risk Category: Low risk Review of Systems A review of systems was conducted and noted to be negative to the patients presenting complaint unless delineated in HPI. Full details are available on form PM-82 completed by the patient and added to the record on today?s date Denies loss of control of bowel and bladder or saddle paresthesia. Denies suicidal ideation or plan Physical Exam Vitals & Measurements HR: 61 (Peripheral) RR: 18 BP: 129/85 HT: 172 cm General -Appears stated age. No apparent distress. Psychological - Normal mood and affect. HEENT - Normocephalic/Atraumatic Neurologic-alert and oriented x4 Respiratory - No obvious distress, No shortness of breath. Pain with range of motion bilateral knees. No erythema, warmth or swelling appreciated to joint. Palpatory tenderness patellofemoral joint line bilaterally Additional Vitals BP Position/Location: Sitting Assessment/Plan Bilateral knee pain Procedure ? Intraarticular injection of the (Right and Left) Knee Indication ? Procedure: Risks, Benefits, and Alternatives of the procedure were reviewed. All questions were answered appropriately, and informed consent was obtained both written and verbal prior to the procedure. Patient was placed in the sitting position with knees flexed to a position of comfort. Landmarks were palpated for an anterior approach above the tibial tuberosity of the (Right and Left) knee. The area was prepped with alcohol and draped in usual clean fashion. Then 27 gauge needle was passed into the kneeatraumatically. At this point, a total of 4ml 0.25% Marcaine c (more content not included)...[facility] Pain Management Office/Clinic Noteon [id number] Management Office/Clinic NoteChief Complaint bilateral mid back pain. bilateral knee pain. History of Present Illness Patient presents today for evaluation regarding chronic low back pain. Patient underwent bilateral L4 TFESI 11/21/2023 and reports ongoing 75% or better improvement of her pain. Patient has engaged in a 6 week course of provider directed, home based physiological therapies within the last 3 months. In addition, a six-week trial of activity modification has failed to give reprieve. Patient has also failed to respond optimally to oral analgesic regimen Oswestry Disability Form AM Behavior: Better PM Pain Intensity: The pain is moderate at the moment PM Last utox: 06-11-23 consistent Day Progresses Behavior: Worse PM Personal Care: I can look after myself without causing extra pain PM Last ORT/Med Mgmt Agreement: 09/12/23 PM Behavior: Worse PM Sitting: I can sit in any chair as long as I like Pain location and laterality: bilateral mid back pain. bilateral knee pain. PM Pain Lifting: Pain prevents me from lifting heavy weights off the floor, but I can manage if they are conveniently placed eg. on a table Pain quality: Aching PM Walking: Pain prevents me from walking more than 1/2 mile Pain Pattern: Constant PM Standing: I can stand as long as I want, but it gives me extra pain Pain rate at rest: 4 PM Sleeping: My sleep is occasionally disturbed by pain Pain rate with activity: 10 PM Sex Life: My sex life is normal and causes no pain/NA Bending: Aggravating PM Social Life: My social life is normal, but increases the degree of pain Heat: Alleviating PM Traveling: I can travel anywhere but it gives me extra pain Lifting: Aggravating PM Oswestry Score: 20 Lying: Alleviating PM Oswestry Score Interpretation: 0% to 20%Minimal Disability: The patient can cope with most living activities. Usually no treatment is indicated apart from advice on lifting, sitting and exercise. Performance of ADL's: Aggravating Pushing/Pulling: Aggravating Sitting: Alleviating Standing: Aggravating Transitioning: Aggravating Walking: Aggravating Sensory impairment location: pt denies any numbness or tingling. Pain since last visit: Improved Procedure 1: Therapeutic lumbar sympathetic block Procedure Date 1: 11/21/23 Procedure Comments 1: Bilateral L4 TFESI Pain Improvement 1: Significant (70-100% relief) Pain Improvement Comments 1: 75% relief Date Tens: current Frequency TENS: 2-3 xweek Effective TENS: helps-low back Date Chiropractor: hx Effective Chiropractor: no help Date PT: hx Comments PT: HEP-stretching & walking Date Injections: prn Frequency Injections: PRN Effective Injections: 40% relief Comments Injections: Right TF KIMMY L3-4,L4-5 Date Surgery: 1999 Frequency Surgery: x1 Effective Surgery: L1, L2 laminectomy Comments Surgery: Dr. Burr in [place] Date Other: HEP Frequency Other: PRN Effective Other: sometimes helps Recent testing: No Loss of bladder/bowel: Denies Demeanor: Pleasant Distress: None Appearance: Appropriate Cognitive impairment: No Feels safe at home: Yes Suicidal/homicidal ideation: No Review of Systems A review of systems was conducted and noted to be negative to the patients presenting complaint unless delineated in HPI. Full details are available on form PM-82 completed by the patient and added to the record on today?s date Denies loss of control of bowel and bladder or saddle paresthesia. Denies suicidal ideation or plan Physical Exam Vitals & Measurements HR: 65 (Peripheral) RR: 18 BP: 126/79 HT: 170 cm WT: 105 kg (Estimated) BMI: 36.33 General -Appears stated age. No apparent distress. Psychological - Normal mood and affect. HEENT - Normocephalic/Atraumatic Neurologic-alert and oriented x4 Respiratory - No obvious distress, No shortness of breath. No focal motor or sensory deficits appreciated. Patient has well-healed midline lumbar incision previous laminectomy Additional Vitals BP Position/Location: Sitting, Left arm Assessment/Plan Bilateral knee pain Chronic prescription opiate use Patient's opioid regimen does provide improvement in quality of life and functionality. Patient hasrevealed no aberrant behaviors with opioid medication and denies any significant side effects with medication. Will continue opioid therapy. 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 Will be reevaluated approximately 3 months or sooner patient request Osteoarthritis of knees, bilateral Patient is awaiting orthopedic referral for bilateral knee pain/osteoarthritis as she is currently on Wegovy and attempting weight loss Medical Decision Making Chronic conditions NOT treated during this visit that affected my overall medical decision making: [Currently on Wegovy] I have reviewed the patient?s medication list for medication interactions/contraindications and/or (more content not included)...[facility] with Diffon [id number]. Basophil0.06 k/uL Normal0.00-0.20Doctors HospitalComment on above:Performed By: #### MG, URI, CDP, ADRIEN, CP #### [address] [place] [address] Hospital Insurance Representative: Yonis Bower MD #### VELMA, VD25 #### [place] [address] Hospital Insurance Representative: Marciano March.Imm.Granulocyte<0.34Fwyupv0.00-0.30Doctors HospitalComment on above:Performed By: #### MG, URI, CDP, ADRIEN, CP #### [address] [place] [address] Hospital Insurance Representative: Yonis Bower MD #### EID25 #### [place] [address] Hospital Insurance Representative: Marciano March.Neutrophil (Seg)3.97 k/uLNormal1.50-8.10 [facility] HospitalComment on above:Performed By: #### MG, URI, CDP, ADRIEN, CP #### [address] [place] [address] Hospital Insurance Representative: Yonis Bower MD #### EID25 #### [place] [address] Hospital Insurance Representative: Gato Baldwin MDBasophils/100 WBC (Bld)1 %Normal0-2MUniversity Hospitals Parma Medical CenterComment on above:Performed By: #### MG, URI, CDP, ADRIEN, CP #### [address] [place] [address] Hospital Insurance Representative: Yonis Bower MD #### EID25 #### [place] [id number] Hospital Insurance Representative: Gato Baldwin MDEosinophils (Bld) [#/Vol]0.12 10*3/uLNormal 0.00-0.44Doctors HospitalComment on above:Performed By: #### MG, URI, CDP, ADRIEN, CP #### [address] [place] [address] Hospital Insurance Representative: Yonis Bower MD #### GLYHGB, VD25 #### [place] [address] Hospital Insurance Representative: Gato Baldwin MDEosinophils/100 WBC (Bld)1 %Normal1-4Doctors HospitalComment on above:Performed By: #### MG, URI, CDP, ADRIEN, CP #### [address] [place] [address] Hospital Insurance Representative: Yonis Bower MD #### VELMA, VD25 #### [place] [address] Hospital Insurance Representative: Gato Baldwin MDErythrocyte distribution width (RBC) [Ratio]13.5 %Mehbgw44.8-14.4Doctors HospitalComment on above:Performed By: #### MG, URI, CDP, ADRIEN, CP #### [address] [place] [address] Hospital Insurance Representative: Yonis Bower MD #### GLYHGDulce, VD25 #### [place] [address] Hospital Insurance Representative: Gato Baldwin MDHematocrit (Bld) [Volume fraction]41.3 %Normal 36.3-47.1[facility] HospitalComment on above:Performed By: #### MG, URI, CDP, ADRIEN, CP #### [address] [place] [id number] Hospital Insurance Representative: Yonis Bower MD #### GLYHGB, VD25 #### [address] [address] Hospital Insurance Representative: Gato Baldwin MDHemoglobin (Bld) [Mass/Vol]12.9 g/dLNormal 11.9-15.1Mpremier health miami valley hospitaly Danbury HospitalComment on above:Performed By: #### MG, URI, CDP, ADRIEN, CP #### [address] [place] [id number] Hospital Insurance Representative: Yonis Bower MD #### GLYHGDulce, VD25 #### [address] [address] Hospital Insurance Representative: Gato Baldwin MDImmature granulocytes/100 WBC (Bld)0 %Normal0 Doctors HospitalComment on above:Performed By: #### MG, URI, CDP, ADRIEN, CP #### [address] [place] [address] Hospital Insurance Representative: Yonis Bower MD #### VELMA, VD25 #### [address] [address] Hospital Insurance Representative: Gato Baldwin MDLymphocytes (Bld) [#/Vol]2.81 10*3/uLNormal 1.10-3.70Doctors HospitalComment on above:Performed By: #### MG, URI, CDP, ADRIEN, CP #### [address] [place], [place] [address]83 Hospital Insurance Representative: Yonis Bower MD #### GLYHGB, VD25 #### [address] [id number] Hospital Insurance Representative: Gato Baldwin MDLymphocytes/100 WBC (Bld)34 %Iwpdrp03-50GwgfpDoctors HospitalComment on above:Performed By: #### MG, URI, CDP, ADRIEN, CP #### [address] [place], [place] 0097383 Hospital Insurance Representative: Yonis Bower MD #### GLYHGB, VD25 #### [address] [address] Hospital Insurance Representative: SENIA March (RBC) [Entitic mass]31.4 uzVyavqv16.2-33.5 Doctors HospitalComment on above:Performed By: #### MG, URI, CDP, ADRIEN, CP #### [address] [place], [place] 9[address]83 Hospital Insurance Representative: Yonis Bower MD #### SUSANNAHB, VD25 #### [address] [address] Hospital Insurance Representative: SENIA MarchC (RBC) [Mass/Vol]31.2 g/aJWjwgbl27.4-34.8 Doctors HospitalComment on above:Performed By: #### MG, URI, CDP, ADRIEN, CP #### [address] [place], [place] 4[address]83 Hospital Insurance Representative: Yonis Bower MD #### GLYHGB, VD25 #### [address] [address] Hospital Insurance Representative: LUI March (RBC) [Entitic vol]100.5 tHIabffj84.6-102.9 Doctors HospitalComment on above:Performed By: #### MG, URI, CDP, ADRIEN, CP #### [address] [place], [place] [id number] Hospital Insurance Representative: Yonis Bower MD #### GLYHGB, VD25 #### [address] [address] Hospital Insurance Representative: Gato Baldwin, MDMonocytes (Bld) [#/Vol]1.36 10*3/uLHigh0.10-1.20 [facility] HospitalCombronson methodist hospital on above:Performed By: #### MG, URI, CDP, ADRIEN, CP #### [address] [place], [place] 267[address]83 Hospital Insurance Representative: Yonis Bower MD #### GLYHGB, VD25 #### [address] [id number] Hospital Insurance Representative: Gato Baldwin MDMonocytes/100 WBC (Bld)16 %High3-12Doctors HospitalComment on above:Performed By: #### MG, URI, CDP, ADRIEN, CP #### [address] [place] [address] Hospital Insurance Representative: Yonis Bower MD #### GLYHANSAB, VD25 #### [address] [id number] Hospital Insurance Representative: Gato Baldwin MDNeutrophil (Seg)48 %Dloguu24-99CorgyDoctors HospitalComment on above:Performed By: #### MG, URI, CDP, ADRIEN, CP #### [address] [place], [place] 473[address]83 Hospital Insurance Representative: Yonis Bower MD #### GLYHGB, VD25 #### [address] [address] Hospital Insurance Representative: Gato Baldwin MDNRBC Automated0.0 per 100 WBCNormal0.0Do[facility] HospitalCombronson methodist hospital on above:Performed By: #### MG, URI, CDP, ADRIEN, CP #### [address] [place], [place] 414[address]83 Hospital Insurance Representative: Yonis Bower MD #### GLYHGB, VD25 #### [address] [address] Hospital Insurance Representative: Porter March mean volume (Bld) [Entitic vol]10.6 fL Normal8.1-13.5Doctors HospitalComment on above:Performed By: #### MG, URI, CDP, ADRIEN, CP #### [address] [place] [address] Hospital Insurance Representative: Yonis Bower MD #### GLYHGB, VD25 #### [address] [address] Hospital Insurance Representative: Earl March (Bld) [#/Vol]294 10*3/rTFurznb028-054 Doctors HospitalComment on above:Performed By: #### MG, URI, CDP, ADRIEN, CP #### [address] [place] [address] Hospital Insurance Representative: Yonis Bower MD #### GLYTREVOR, VD25 #### [place] [address] Hospital Insurance Representative: MIRTA March (Bld) [#/Vol]4.11 10*6/uLNormal3.95-5.11 Doctors HospitalComment on above:Performed By: #### MG, URI, CDP, ADRIEN, CP #### [address] [place] [address] Hospital Insurance Representative: Yonis Bower MD #### GLYHGB, VD25 #### [place] [address] Hospital Insurance Representative: Gato Baldwin MDBC (Bld) [#/Vol]8.3 10*3/uLNormal3.5-11.3MUniversity Hospitals Parma Medical CenterComment on above:Performed By: #### MG, URI, CDP, ADRIEN, CP #### [address] [place], [place] 0816783 Hospital Insurance Representative: Yonis Bower MD #### GLYHGB, VD25 #### [address] [address] Hospital Insurance Representative: ELLIE Marchomp Metabolic Profon [id number] [Mass/Vol]3.8 g/dLNormal3.5-5.2MUniversity Hospitals Parma Medical CenterComment on above:Performed By: #### MG, URI, CDP, ADRIEN, CP #### [address] [place] [address] Hospital Insurance Representative: Yonis Bower MD #### GLYHGDulce, VD25 #### [address] [address] Hospital Insurance Representative: Gato Baldwin MDAlbumin/Glob Ratio1.6Wgctsw5.0-2.5Doctors HospitalComment on above:Performed By: #### MG, URI, CDP, ADRIEN, CP #### [address] [place] [address] Hospital Insurance Representative: Yonis Bower MD #### VELMA, VD25 #### [address] [address] Hospital Insurance Representative: Sahara March Phos89 U/TIsnkuc83-550BqehcDoctors HospitalComment on above:Performed By: #### MG, URI, CDP, ADRIEN, CP #### [address] [place] [address] Hospital Insurance Representative: Yonis Bower MD #### GLYHGB, VD25 #### [address] [address] Hospital Insurance Representative: Gato Baldwin MDALT [Catalytic activity/Vol]15 U/LNormal5-33 [facility] HospitalCombronson method[facility] hospital on above:Performed By: #### MG, URI, CDP, ADRIEN, CP #### [address] [place] [address] Hospital Insurance Representative: Yonis Bower MD #### GLYHGB, VD25 #### [place] [address] Hospital Insurance Representative: Cosme March gap [Moles/Vol]9 mmol/LNormal9-17Doctors HospitalComment on above:Performed By: #### MG, URI, CDP, ADRIEN, CP #### [address] [place] [address] Hospital Insurance Representative: Yonis Bower MD #### GLYTREVOR, VD25 #### [place] [address] Hospital Insurance Representative: GERA March [Catalytic activity/Vol]17 U/LNormal<32Doctors HospitalComment on above:Performed By: #### MG, URI, CDP, ADRIEN, CP #### [address] [place] [address] Hospital Insurance Representative: Yonis Bower MD #### GLYTREVOR, VD25 #### [place] [address] Hospital Insurance Representative: Gato Baldwin MDBilirubin [Mass/Vol]0.5 mg/dLNormal0.3-1.2MUniversity Hospitals Parma Medical CenterComment on above:Performed By: #### MG, URI, CDP, ADRIEN, CP #### [address] [place] [address] Hospital Insurance Representative: Yonis Bower MD #### GLYHGB, VD25 #### [place] [id number] Hospital Insurance Representative: Gato Madoff, MDBUN/CRE Jqjqb84Fdss9-75ItexlDoctors Hospital Comment on above:Performed By: #### MG, URI, CDP, ADRIEN, CP #### [address] [place] [address] Hospital Insurance Representative: Yonis Bower MD #### VELMA, VD25 #### [place] [address] Hospital Insurance Representative: ELLIE Marchalcium [Mass/Vol]9.4 mg/dLNormal8.6-10.4Doctors HospitalComment on above:Performed By: #### MG, URI, CDP, ADRIEN, CP #### [address] [place] [address] Hospital Insurance Representative: Yonis Bower MD #### EID25 #### [place] [address] Hospital Insurance Representative: ELLIE Marchhloride [Moles/Vol]102 mmol/GYgturh49-785OxjaqDoctors HospitalComment on above:Performed By: #### MG, URI, CDP, ADRIEN, CP #### [address] [place] [address] ( Hospital Insurance Representative: Yonis Bower MD #### EID25 #### [place] [address] Hospital Insurance Representative: ELLEI MarchO2 [Moles/Vol]29 mmol/RQoiptj36-58UshveDoctors HospitalComment on above:Performed By: #### MG, URI, CDP, ADRIEN, CP #### [address] [place] [address] Hospital Insurance Representative: Yonis Bower MD #### VELMA, VD25 #### [address] [id number] Hospital Insurance Representative: ELLIE Marchreatinine [Mass/Vol]0.7 mg/dLNormal0.5-0.9Do[facility] HospitalCombronson methodist hospital on above:Performed By: #### MG, URI, CDP, ADRIEN, CP #### [address] [place], [place] [address]707183 Hospital Insurance Representative: Yonis Bower MD #### VELMA, VD25 #### [place] [address] [place], [place] [id number] Hospital Insurance Representative: Gato Baldwin MDGFR/1.73 sq M.predicted among non-blacks MDRD (S/P/Bld) [Vol rate/Area]mL/min/{1.73_m2}Normal>60Doctors HospitalComment on above:Result Comment: These results are not intended for use in patients <18 years of age. eGFR results are calculated without a race factor using the 2020 CKD-EPI equation. Careful clinical correlation is recommended, particularly when comparing to results calculated using previous equations. The CKD-EPI equation is less accurate in patients with extremes of muscle mass, extra-renal metabolism of creatine, excessive creatine ingestion, or following therapy that affects renal tubular secretion.Performed By: #### MG, URI, CDP, ADRIEN, CP #### [address] [place] [address] Hospital Insurance Representative: Yonis Bower MD #### EID25 #### [facility] [employer] [facility] [place], [place] [id number] Hospital Insurance Representative: Gato Baldwin MDGlucose [Mass/Vol]79 mg/zZGnuvwb36-89YsemzUniversity Hospitals Parma Medical CenterComment on above:Performed By: #### MG, URI, CDP, ADRIEN, CP #### [address] [place] [address] Hospital Insurance Representative: Yonis Bower MD #### VELMA, VD25 #### [facility] [employer] [facility] [place] [address] Hospital Insurance Representative: SIRIA Marchotassium [Moles/Vol]4.3 mmol/LNormal3.7-5.3 Doctors HospitalComment on above:Performed By: #### MG, URI, CDP, ADRIEN, CP #### [address] [place] [address] Hospital Insurance Representative: Yonis Bower MD #### VELMA, VD25 #### [address] [address] Hospital Insurance Representative: Gato Baldwin MDProtein [Mass/Vol]6.8 g/dLNormal6.4-8.3MUniversity Hospitals Parma Medical CenterComment on above:Performed By: #### MG, URI, CDP, ADRIEN, CP #### [address] [place] [address] Hospital Insurance Representative: Yonis Bower MD #### VELMA, VD25 #### [place] [address] Hospital Insurance Representative: SYED Marchodium [Moles/Vol]140 mmol/NWylsba346-342PgjurDoctors HospitalComment on above:Performed By: #### MG, URI, CDP, ADRIEN, CP #### [address] [place] [address] Hospital Insurance Representative: Yonis Bower MD #### GLYTREVOR, VD25 #### [address] [id number] Hospital Insurance Representative: Gato Baldwin MDUrea nitrogen [Mass/Vol]16 mg/dLNormal6-20Doctors HospitalComment on above:Performed By: #### MG, URI, CDP, ADRIEN, CP #### [address] [place] [address] Hospital Insurance Representative: Yonis Bower MD #### GLYHGB, VD25 #### [employer] [address] [place] [address] Hospital Insurance Representative: Gato Baldwin MDHemoglobin A1Con [id number] [Mass/Vol]111 mg/dLNormalSelect Medical Specialty Hospital - [place] on above:Result Comment: The ADA and AACC recommend providing the estimated average glucose result to permit better patient understanding of their HBA1c result.Performed By: #### MG, URI, CDP, ADRIEN, CP #### [address] [place], [place] [phone] Hospital Insurance Representative: Yonis Bower MD #### GLYHGB, VD25 #### [facility] [employer] [address] [place] [address] Hospital Insurance Representative: Gato Baldwin MDHbA1c (Bld) [Mass fraction]5.5 %Normal4.0-6.0 Doctors HospitalComment on above:Performed By: #### MG, URI, CDP, ADRIEN, CP #### [address] [place] [address] Hospital Insurance Representative: Yonis Bower MD #### ESDRASHGDulce, VD25 #### [facility] [employer] [address] [place] [id number] Hospital Insurance Representative: Gato Baldwin MDLipid Profileon [id number] [Mass/Vol] 168 mg/dLNormal<200[facility] on above:Result Comment: Cholesterol Guidelines: <200 Desirable 200-240 Borderline >240 UndesirablePerformed By: #### MG, URI, CDP, ADRIEN, CP #### [address] [place] [address] Hospital Insurance Representative: Yonis Bower MD #### GLYHGB, VD25 #### [address] [id number] Hospital Insurance Representative: Gato Madoff, MDCholesterol in HDL [Mass/Vol]53 mg/dLNormal>40 [facility] Hospitalment on above:Result Comment: HDL Guidelines: <40 Undesirable 40-59 Borderline >59 DesirablePerformed By: #### MG, URI, CDP, ADRIEN, CP #### [address] [place] [address] Hospital Insurance Representative: Yonis Bower MD #### VELMA VD25 #### [employer] [address] [place] [phone] Hospital Insurance Representative: ELLIE Marchholesterol in LDL [Mass/Vol]78 mg/dLNormal0-130 Doctors HospitalCombronson methodist hospital on above:Result Comment: LDL Guidelines: <100 Desirable 100-129 Near to/above Desirable 130-159 Borderline >159 Undesirable Direct (measured) LDL and calculated LDL are not interchangeable tests.Performed By: #### MG, URI, CDP, ADRIEN, CP #### [address] [place] [phone] Hospital Insurance Representative: Yonis Bower MD #### VELMA VD25 #### [facility] [address] [place] [phone] Hospital Insurance Representative: Jessie Marchststella.total/Cholesterol in HDL [Mass ratio]3.2 {ratio}Normal<5Doctors HospitalComment on above:Performed By: #### MG, URI, CDP, ADRIEN, CP #### [address] [place] [address] Hospital Insurance Representative: Yonis Bower MD #### VELMA, VD25 #### [facility] [address] [place] [address] [id number] Hospital Insurance Representative: Gato Baldwin MDTriglyceride [Mass/Vol]186 mg/dLHigh<150Mercy Danbury HospitalComment on above:Result Comment: Triglyceride Guidelines: <150 Desirable 150-199 Borderline 200-499 High >499 Very high Based on AHA Guidelines for fasting triglyceride, March 2012.Performed By: #### MG, URI, CDP, ADRIEN, CP #### [address] [place] [address] Hospital Insurance Representative: Yonis Bower MD #### VELMA, VD25 #### [address] [id number] Hospital Insurance Representative: Gato Baldwin MDMagnesiumon [id number] [Mass/Vol]2.0 mg/dLNormal1.6-2.6[facility] HospitalComment on above:Performed By: #### MG, URI, CDP, ADRIEN, CP #### [address] [place] [id number] Hospital Insurance Representative: Yonis Bower MD #### VELMA, VD25 #### [place] [address] Hospital Insurance Representative: Gato Baldwin MDPhosphorus, Inorg.on [phone], Inorg.3.1 mg/dLNormal2.6-4.5MerYale New Haven Psychiatric HospitalComment on above:Performed By: #### MG, URI, CDP, ADRIEN, CP #### [address] [place] [address] Hospital Insurance Representative: Yonis Bower MD #### VELMA, VD25 #### [facility] [employer] [address] [place] [address] Hospital Insurance Representative: Gato Baldwin MDWAYS[facility] w/reflex to FT4on [phone] Stim. Horm.1.28 uIU/mLNormal0.30-5.00Doctors HospitalComment on above:Performed By: #### TSHX #### [address] [place] [id number] Hospital Insurance Representative: VERONICA Rodriguez w/Reflex Cultureon [phone], SemiQt,UrNegativeNormalNEGMerCleveland Clinic HospitalComment on above:Performed By: #### UAX, UMICAO #### [facility] [address] [place], [place] [id number] Hospital Insurance Representative: Mary Jane Rodriguez, UrineNegativeMiami Valley [facility] Comment on above:Performed By: #### UAX, UMICAO #### [facility] [address] [place], [place] [id number] Hospital Insurance Representative: ELLIE Rodriguezlarity (ClearNoalCLEARDoctors Hospital Comment on above:Performed By: #### UAX, UMICAO #### [address] [place], [place] [phone] Hospital Insurance Representative: ELLIE Rodriguezolor (U)YellowNormalYPremier Health Comment on above:Performed By: #### UAX, UMICAO #### [address] [place], [place] [id number] Hospital Insurance Representative: Yonis Bower MDGlucose Ql (U)NegativeNormalNEGMerCleveland Clinic HospitalComment on above:Performed By: #### UAX, UMICAO #### [facility] [address] [place] [address] Dr[place], [place] [id number] Hospital Insurance Representative: Yonis Bower MDKetones Ql (U)NegativeNormalNEGMerYale New Haven Psychiatric HospitalComment on above:Performed By: #### UAX, UMICAO #### [facility] [address] [place] [address] [place] [address] Hospital Insurance Representative: Yonis Bower MDLeukocyte esterase Test strip Ql (U)NegativeNormal NEGMerYale New Haven Psychiatric HospitalComment on above:Performed By: #### UAX, UMICAO #### [facility] [address] [place] [address] [place] [address] Hospital Insurance Representative: Yonis Bower MDNitrite,UrNegativeNormalNEGDoctors Hospital Comment on above:Performed By: #### UAX, UMICAO #### [address] [place] [address] Hospital Insurance Representative: SIRIA Rodriguez,Ur6.7Zkhsie4.0-9.0Doctors HospitalComment on above:Performed By: #### UAX, UMICAO #### [address] [place] [address] Hospital Insurance Representative: SIRIA Rodriguezrotein Ql (U)NegativeNormalNEGDoctors HospitalComment on above:Performed By: #### BRAD RODRIGUEZ #### [facility] [address] [place] [address] Dr[place], [place] 6375183 Hospital Insurance Representative: SYED Rodriguezpec. [place],Ur1.085Ljcurc9.010-1.020Doctors HospitalComment on above:Performed By: #### BRAD RODRIGUEZ #### [address] [place], [place] [phone] Hospital Insurance Representative: Yonis Bower MDUrobilinogen,UrNormalNormal0.0-1.0Doctors HospitalComment on above:Performed By: #### BRAD RODRIGUEZ #### [facility] [address] [place] [address] [place] [place], [place] [phone] Hospital Insurance Representative: Yonis Bower MDUric Acidon [phone] [Mass/Vol]4.4 mg/dL Normal2.4-5.7Doctors HospitalComment on above:Performed By: #### MG, URI, CDP, ADRIEN, CP #### [facility] [address] [place] [address] Dr[address] [place], [place] [id number] Hospital Insurance Representative: Yonis Bower MD #### GLYHGB, VD25 #### [employer] [address] [facility], [place] 1060808 Hospital Insurance Representative: Gato Baldwin MDUrinalysis,Microon [phone] AbnormalNONEMeConnecticut Children's Medical CenterComment on above:Performed By: #### UAX, UMICAO #### [facility] [address] [place] [address] Dr[address] [place], [place] [phone] Hospital Insurance Representative: Yonis Bower MDEpithelial cells LM Ql (Urine sed)0 TO 0Qhmowf5-06 Doctors HospitalComment on above:Performed By: #### UAX, UMICAO #### [facility] [address] [place] [address] Dr[address] [place], [place] [phone] Hospital Insurance Representative: Blanca Rodriguez RBC'sNoneNormal0-2MUniversity Hospitals [facility] Comment on above:Performed By: #### UAX, UMICAO #### [address] [place] [address] Hospital Insurance Representative: Blanca Rodriguez WBC's0 TO 2Xwozre7-9NsqhpDoctors Hospital Comment on above:Performed By: #### UAX, UMICAO #### [address] [place], [place] 1763383 Hospital Insurance Representative: Yonis Bower MDVitamin D 25 OHon [phone] D 25 OH28.0 ng/mLLow>29.9Doctors HospitalComment on above:Result Comment: Reference Range: Vitamin D status Range Deficiency <20 ng/mL Mild Deficiency 20-30 ng/mL Sufficiency 30-100 ng/mL Toxicity >100 ng/mLPerformed By: #### MG, URI, CDP, ADRIEN, CP #### [facility] [address] [place] [address] [place] [address] Hospital Insurance Representative: Yonis Bower MD #### GLYHGB, VD25 #### [employer] [address] [place] [address] Hospital Insurance Representative: ELLIE Marchomplete Blood Count with Auto Diffon 03-22-2022 ALVA#: 0.2Rdympa4.0-0.1[facility] Anderson HospitalComment on above:Performed By: #### CBCAD #### [address] [address] Ph. [phone]/100 WBC (Bld)1 %Normal0-1[facility] Comment on above:Performed By: #### CBCAD #### [place] [address] Ph. [phone] (Bld) [#/Vol]0.2 10*3/uLNormal0.0-0.5[facility] HospitalComment on above:Performed By: #### CBCAD #### [address] [address] Ph. [phone]/100 WBC (Bld)3 %Normal0-5[facility] Comment on above:Performed By: #### CBCAD #### [address] [address] Ph. [phone] distribution width (RBC) [Ratio]13.6 %Normal 11.5-14.5[facility] HospitalComment on above:Performed By: #### CBCAD #### [address] [address] Ph. [phone] (Bld) [Volume fraction]38.7 %Fotuuz44.0-47.0[facility] HospitalComment on above:Performed By: #### CBCAD #### [address] [address] Ph. [phone] (Bld) [Mass/Vol]12.9 g/jJKhgohs55.0-16.0WGlenbeigh HospitalComment on above:Performed By: #### CBCAD #### [address] [address] Ph. [phone] (Bld) [#/Vol]1.4 10*3/uLNormal1.0-4.0WGlenbeigh HospitalComment on above:Performed By: #### CBCAD #### [address] [address] Ph. [phone]/100 WBC (Bld)24 %Mlicrh85-04LfdcmjwGlenbeigh HospitalComment on above:Performed By: #### CBCAD #### [address] [address] Ph. [phone] (RBC) [Entitic mass]31.9 dhDqierw15.0-35.0WGlenbeigh HospitalComment on above:Performed By: #### CBCAD #### [address] [address] Ph. [phone] (RBC) [Mass/Vol]33.3 g/qXEyexxc23.0-36.0WGlenbeigh HospitalComment on above:Performed By: #### CBCAD #### [address] [address] Ph. [phone] (RBC) [Entitic vol]96 aUOfpflt67-161ApiifbaGlenbeigh HospitalComment on above:Performed By: #### CBCAD #### [address] [address] Ph. [phone] (Bld) [#/Vol]0.7 10*3/uLNormal0.3-1.0WGlenbeigh HospitalComment on above:Performed By: #### CBCAD #### [place] [address] Ph. [phone]/100 WBC (Bld)11 %Normal1-15WGlenbeigh Hospital Comment on above:Performed By: #### CBCAD #### [address] [address] Ph. [phone] (Bld) [#/Vol]3.8 10*3/uLNormal1.8-7.7WGlenbeigh HospitalComment on above:Performed By: #### CBCAD #### [place] 4[address]251 Ph. [phone]/100 WBC (Bld)62 %Jaefdo73-14DolnvxdGlenbeigh HospitalComment on above:Performed By: #### CBCAD #### [place] [address] Ph. [phone] mean volume (Bld) [Entitic vol]11.8 fLNormal9.4-12.3 [facility] HospitalComment on above:Performed By: #### CBCAD #### [address] [address] Ph. [phone] (Bld) [#/Vol]275 10*3/gABalkpa688-170JsxryuuGlenbeigh HospitalComment on above:Performed By: #### CBCAD #### [address] [address] Ph. [phone] (Bld) [#/Vol]4.05 10*6/uLLow4.20-5.40WGlenbeigh HospitalComment on above:Performed By: #### CBCAD #### [address] [address] Ph. [phone] (Bld) [#/Vol]6.1 10*3/uLNormal3.7-11.0[facility] HospitalComment on above:Performed By: #### CBCAD #### [place] [address] Ph. [phone] Metabolic Panelon 53-70-3249Mxosflr [Mass/Vol]3.7 g/dLNormal3.5-5.0WGlenbeigh HospitalComment on above:Performed By: #### VITD, DHQ923, CMP, LIPD #### [place] [address] Ph. [phone] [Catalytic activity/Vol]92 U/WUkikcs50-288YujjgcyGlenbeigh HospitalComment on above:Performed By: #### VITD, LQJ617, CMP, LIPD #### [place] [address] Ph. [phone] [Catalytic activity/Vol]14 U/LNormal0-35WGlenbeigh HospitalComment on above:Performed By: #### VITD, YXT840, CMP, LIPD #### [place] [address] Ph. [phone] [Catalytic activity/Vol]22 U/FPibzlf83-95MlnoxyzGlenbeigh HospitalComment on above:Performed By: #### VITD, IYP156, CMP, LIPD #### [place] [address] Ph. [phone] [Mass/Vol]0.6 mg/dLNormal0.2-1.3WGlenbeigh HospitalComment on above:Performed By: #### VITD, PHY126, CMP, LIPD #### [place] [address] Ph. [phone] [Mass/Vol]9.5 mg/dLNormal8.4-10.2WGlenbeigh HospitalComment on above:Performed By: #### VITD, JVW086, CMP, LIPD #### [place] 4189251 Ph. [phone] [Moles/Vol]106 mmol/JGgapae39-820XdyeooaMercy Health Anderson HospitalComment on above:Performed By: #### VITD, JID331, CMP, LIPD #### [address] [address] Ph. [phone] [Moles/Vol]26 mmol/FUqmpbp06-36TwonrcsGlenbeigh Hospital Comment on above:Performed By: #### VITD, CDA169, CMP, LIPD #### [place] [address] Ph. [phone] [Mass/Vol]0.64 mg/dLNormal0.52-1.04[facility] HospitalComment on above:Performed By: #### VITD, KCM639, CMP, LIPD #### [place] [address] Ph. [phone]/1.73 sq M.predicted among non-blacks MDRD (S/P/Bld) [Vol rate/Area]100 mL/min/{1.73_m2}Normal>60WGlenbeigh HospitalComment on above:Result Comment: Stage 1 Kidney damage (e.g., protein in the urine) with normal GFR >=90\X0D0A\Stage 2 Kidney damage with mild decrease in GFR 60- 89\X0D0A\Stage 3a Moderate decrease in GFR 45-59\X0D0A\Stage 3b Moderate decrease in GFR 30-44\X0D0A\Stage 4 Severe reduction in GFR 15-29\X0D0A\Stage 5 Kidney failure <15Performed By: #### VITD, PWJ406, CMP, LIPD #### [place] 4[address]251 Ph. [phone] [Mass/Vol]104 mg/yNHerk36-375FihyhlbGlenbeigh Hospital Comment on above:Performed By: #### VITD, IPZ445, CMP, LIPD #### [place] [address] Ph. [phone] [Moles/Vol]3.9 mmol/LNormal3.6-5.0[facility] HospitalComment on above:Performed By: #### VITD, BXU051, CMP, LIPD #### [place] [address] Ph. [phone] [Mass/Vol]6.4 g/dLNormal6.3-8.2WGlenbeigh Hospital Comment on above:Performed By: #### VITD, DXE134, CMP, LIPD #### [place] [address] Ph. [phone] [Moles/Vol]141 mmol/ILdxejz851-331KnbnrngGlenbeigh HospitalComment on above:Performed By: #### VITD, ISF116, CMP, LIPD #### [place] [address] Ph. [phone] nitrogen [Mass/Vol]7 mg/dLNormal7-17WGlenbeigh HospitalComment on above:Performed By: #### VITD, ZKT875, CMP, LIPD #### [place] [address] Ph. [phone] Panelon 97-19-4069Glwxgussstr [Mass/Vol]142 mg/dLNormal 100-200WGlenbeigh HospitalComment on above:Order Comment: Is Patient Fasting?/# of Hours->6Result Comment: <200 mg/dL is recommended cholesterol level.Performed By: #### VITD, JEO894, CMP, LIPD #### [place] [address] Ph. [phone] in HDL [Mass/Vol]46 mg/dLLow>60WGlenbeigh HospitalComment on above:Order Comment: Is Patient Fasting?/# of Hours->6 Performed By: #### VITD, PFQ538, CMP, LIPD #### [place] [address] Ph. [phone] in LDL [Mass/Vol]68 mg/lICqavrv29-759XywmmtkTriHealth [facility] Hospital on above:Order Comment: Is Patient Fasting?/# of Hours->6Performed By: #### VITD, QRL400, CMP, LIPD #### [place] [address] Ph. [phone].total/Cholesterol in HDL [Mass ratio]3 {ratio}Normal 1-5[facility] on above:Order Comment: Is Patient Fasting?/# of Hours->6Performed By: #### VITD, MKC324, CMP, LIPD #### [place] [address] Ph. [phone] [Mass/Vol]140 mg/lCNmtnkr33-672QosspjuTriHealth Bethesda North Hospital on above:Order Comment: Is Patient Fasting?/# of Hours->6 Performed By: #### VITD, NKR157, CMP, LIPD #### [place] [address] Ph. [phone] Reflex FT4on 98-90-3111GEV9.526 mIU/mLNormal0.470-4.680 [facility] on above:Performed By: #### VITD, RUR218, CMP, LIPD #### [place] [address] Ph. [phone] D, 25 Hydroxyon 64-72-8311VTFB48 ng/vAHdkndj83-081 [facility] on above:Result Comment: EXPECTED VALUES\X0D0A\X0D0A\DEFICIENT: <20 ng/mL\X0D0A\INSUFFICIENT: 20-<30 n g/mL\X0D0A\SUFFICIENT: 30-100 ng/mL\X0D0A\POTENTIAL TOXICITY: >100 ng/mL Performed By: #### VITD, KXJ739, CMP, LIPD #### [place] [address] Ph. [phone] Vital Signs Date TimeVital SignValuePerforming GgroueagaLlodfjdg10-19-3796 09:08-0400Body ohgbue222.7 [facility] Systemion SueStrikeAd Work Phone: [phone] [place], [place] 5022610-28-2025 09:08-0400Body mass index (BMI) [Ratio]32.23 kg/l0Lekojdlb EVOFEMStrikeAd Work Phone: [address] [place], [place] 6183910-28-2025 09:08-0400Body weight 96.16 kgSacounts include [facility] beds [facility] EVOFEMStrikeAd Work Phone: [phone] [place], [place] 5022610-18-2025 04:00-0400Diastolic blood vszujgdd82 mm[Hg]Jigar Reynolds MD Work Phone: [phone]10-18-2025 04:00-0400Heart rate96 /Jose Reynolds MD Work Phone: [address] [place], [place] 6831810-18-2025 04:00-0400Respiratory rate19 /Jose Reynolds MD Work Phone: [phone] [place], [place] 0643810-18-2025 04:00-6795JhZ5% (BldA) [Mass fraction]100 %Jigar Reynolds MD Work Phone: [phone] [place] [address] [facility] Mquoea62-45-8989 04:00-0400Systolic blood mm[Hg]Jigar Reynolds MD Work Phone: [phone] [place], [place] 0643810-18-2025 00:23-0400Body height 172.7 cmJigar Reynolds MD Work Phone: [phone] [place], [place] 0643810-18-2025 00:20-0400Body bteenouhdgl15.01 [degF]Jigar Reynolds MD Work Phone: [facility]10-08-2025 18:00-0400Diastolic blood kuuuwkyx24 mm[Hg]Joaquín Baez MD Work Phone: [facility]10-08-2025 18:00-0400Heart rate75 /Bethany Baez MD Work Phone: [address] [place], [place] 6183910-08-2025 18:00-0400Systolic blood ufskpnti527 mm[Hg]Joaquín Baez MD Work Phone: [address] [place], [place] 6183910-08-2025 17:30-8591TzW7% (BldA) [Mass fraction]96 %Joaquín Baez MD Work Phone: [address] [place], [place] 6183910-08-2025 12:45-0400Respiratory rate19 /Bethany Baez MD Work Phone: [address] [place], [place] 6183910-08-2025 12:12-0400Body nnvsicstkxm09.5 [degF]Joaquín Baez MD Work Phone: [address] [place], [place] 6183910-08-2025 07:02-0400Body height 170.2 cmSneot Baez MD Work Phone: [address] [place], [place] 6183910-08-2025 07:02-0400Body mass index (BMI) [Ratio]34.46 kg/r3IaumpJoaquín Baez MD Work Phone: [address] [place], [place] 6183910-08-2025 07:02-0400Body weight 99.79 kgJoaquín Baez MD Work Phone: [address] [place], [place] 6183910-06-2025 08:31-0400Body height 170.2 cmDennis Furlong DO Work Phone: [facility]10-06-2025 08:31-0400Body mass index (BMI) [Ratio]34.07 kg/r7Jfnact Furlong DO Work Phone: [facility]10-06-2025 08:31-0400Body rfgqsnvufjz77.59 [degF]Jimmie Joyalong DO Work Phone: [facility] Hvsjph34-14-3098 08:31-0400Body galgwe07.7 kgDennis Mahnazlong DO Work Phone: [facility] Ebludg76-47-6372 08:31-0400Diastolic blood rrepwrne88 mm[Hg]Jimmie Mahnazlong DO Work Phone: [facility] Mlcnhz82-02-4194 08:31-0400Heart rate 67 /Aquilinois Mahnazlong DO Work Phone: [facility] Okqvro72-23-2756 08:31-0400 Respiratory rate20 /minDangeliais Mahnazlong DO Work Phone: [facility] Fptwcl10-85-6657 08:31-0860KaJ7% (BldA) [Mass fraction]98 %Jimmie Joyalong DO Work Phone: [facility] Ercfrp87-97-4294 08:31-0400Systolic blood fialvqkp908 mm[Hg]Jimmie Joyalong DO Work Phone: [facility] Myzfor16-25-6518 16:19-0400Body masylz422.2 cmJimmie Joyalong DO Work Phone: [facility] Mjbhor47-11-8547 16:19-0400Body mass index (BMI) [Ratio]34.45 kg/h4Wuxejk Furlong DO Work Phone: [facility] Ubfplz65-45-5664 16:19-0400Body dggdsxaavce59.11 [degF]Jimmie Joyalong DO Work Phone: [facility] Akxqsk65-63-6337 16:19-0400Body ogcxeb93.79 kgDenalfredo Joyalong DO Work Phone: [facility] Sjilqx64-12-8144 16:19-0400Diastolic blood dinnrliw92 mm[Hg]Jimmie Joyalong DO Work Phone: [facility] Tjdeoc85-52-9806 16:19-0400Heart rate 76 /Boris Joyalong DO Work Phone: [facility] Mcbext04-83-9199 16:19-0400 Respiratory rate18 /minDangeliais Mahnazlong DO Work Phone: [facility] Wklrwi41-81-0796 16:19-2791SzM5% (BldA) [Mass fraction]97 %Jimmie Montgomeryng DO Work Phone: [facility] Ibngti35-78-3506 16:19-0400Systolic blood hwgmoqdh512 mm[Hg]Jimmie Montgomeryng DO Work Phone: [facility] Kktsrp98-37-3878 13:59-0400Body .7 Ivanna Baez MD Work Phone: [facility] Wrzmcc82-28-8440 13:59-0400Body mass index (BMI) [Ratio]32.36 kg/z5RvlyfJoaquín Baez MD Work Phone: [facility] Wodvzx68-46-7494 13:59-0400Body weight 96.53 kgJoaquín Baez MD Work Phone: [facility]06-05-2025 16:19-0400Body height 170.2 cmJimmie Montgomeryng DO Work Phone: [facility] Pgtvyo62-13-5576 16:19-0400Body mass index (BMI) [Ratio]34.45 kg/s7DlvlsqJimmie Joyalong DO Work Phone: [facility] Orpcnj93-26-8499 16:19-0400Body euehpwcebuq90.9 [degF]Jimmie Montgomeryng DO Work Phone: [facility] Cbqyok73-74-1948 16:19-0400Body xffiet33.79 kgJimmie Montgomeryng DO Work Phone: [facility] Ldnytd45-13-6510 16:19-0400Diastolic blood banseijb16 mm[Hg]Jimmie Joyalong DO Work Phone: [facility] Uhrkcq42-54-5321 16:19-0400Heart rate 85 /Aquilinois Furlong DO Work Phone: [facility]06-05-2025 16:19-0400 Respiratory rate18 /minDennis Furlong DO Work Phone: [facility]06-05-2025 16:19-8739UiD8% (BldA) [Mass fraction]97 %Jimmie Joyalong DO Work Phone: [facility] Xplpua41-25-4769 16:19-0400Systolic blood zlacsnlu273 mm[Hg]Jimmie Joyalong DO Work Phone: [facility] Xqskuu70-52-0663 16:32-0500Body .2 cmDenalfredo Joyalong DO Work Phone: [facility] Wtuzxn36-54-3608 16:32-0500Body mass index (BMI) [Ratio]35.44 kg/d6Mnwhqu Furlong DO Work Phone: [facility] Skfywr29-69-6498 16:32-0500Body egwvearrhdf94.2 [degF]Jimmie Joyalong DO Work Phone: [facility] Vyosvw84-49-6441 16:32-0500Body duowrp677.65 kgDenalfredo Joyalong DO Work Phone: [facility] Kbbdnv69-41-6232 16:32-0500Diastolic blood heueonyz16 mm[Hg]Jimmie Joyalong DO Work Phone: [facility] Qhcche55-47-8926 16:32-0500Heart rate 58 /Boris Joyalong DO Work Phone: [facility] Quulhp17-92-3770 16:32-0500 Respiratory rate18 /minDangeliais Mahnazlong DO Work Phone: [facility]03-03-2025 16:32-9851IpO3% (BldA) [Mass fraction]96 %Jimmie Garcia DO Work Phone: [facility] Yyqdup40-37-7878 16:32-0500Systolic blood qhydvwtm604 mm[Hg]Jimmie Garcia DO Work Phone: [facility] Dzhyib73-65-6671 15:53-0400Body nqrbuc412.2 cmJimmie Montgomeryng DO Work Phone: [facility] Ujwtsi09-58-1980 15:53-0400Body mass index (BMI) [Ratio]33.14 kg/s2Cbzhrjalfredo Garcia DO Work Phone: [facility] Vejrfy33-88-8420 15:53-0400Body xvghbkyhinu98.01 [degF]Jimmie Garcia DO Work Phone: [facility] Uuttwa58-71-0223 15:53-0400Body .98 kgJimmie Garcia DO Work Phone: [facility] Dqaptk90-16-2575 15:53-0400Diastolic blood gpmepujj90 mm[Hg]Jimmie Garcia DO Work Phone: [facility] Agadep64-27-8215 15:53-0400Heart rate 68 /minDennis Radha DO Work Phone: [facility] Jkdrfg62-46-3132 15:53-0372CyB7% (BldA) [Mass fraction]97 %Jimmie Garcia DO Work Phone: [facility] Khfknf06-29-8547 15:53-0400Systolic blood hxpvlslo180 mm[Hg]Jimmie Garcia DO Work Phone: [facility] Lahysg89-03-0035 18:41-0400Body caxdosrafcm04.81 [degF][facility]09-15-20[facility] 18:41-0400Diastolic blood qyqjrwlu65 mm[Hg][facility] RTCNPU53-51-0725 18:41-0400Heart rate85 /minBON [facility]09-15-2024 18:41-0400Respiratory rate18 /minBON [facility]09-15-2024 18:41-4782HvK0% (BldA) [Mass fraction]98 %[facility] [id number] 18:41-0400Systolic blood zvxaoudu566 mm[Hg][facility]04-16-2024 15:12-0400Body vhpylt827.1 cmJimmie JoyaSmartAssetng DO Work Phone: [facility] [id number] 15:12-0400Body mass index (BMI) [Ratio]39.59 kg/t8HmnsflJimmie Joyalong DO Work Phone: [facility] [id number] 15:12-0400Body mirgeggieqo87.81 [degF]Jimmie Joyalong DO Work Phone: [facility] Zymapp11-32-9601 15:12-0400Body iwebbv161.89 kgJimmie Joyalong DO Work Phone: [facility] [employer] Vqjcnf46-49-4643 15:12-0400Diastolic blood uwzatait75 mm[Hg]Jimmie Joyalong DO Work Phone: [facility] [employer] Vjltvw85-69-7954 15:12-0400Heart rate 62 /Boris Joyalong DO Work Phone: [facility] Jsspjg44-81-9095 15:12-0400 Respiratory rate18 /minDangeliais Mahnazlong DO Work Phone: [facility] Jvkejs68-33-7251 15:12-5462WcA3% (BldA) [Mass fraction]95 %Jimmie Joyalong DO Work Phone: [facility] Lpxuid24-22-0329 15:12-0400Systolic blood mm[Hg]Jimmie Joyalong DO Work Phone: [facility] Encounters Encounter DateEncounter [facility] ProviderFacilityStart: 05-03-2025 End: 79-49-6081MyyefoAvdn Cooper CMAProMedisd Physicians Internal Medicine - Family MedicineStart: 04-27-2025 End: 48-83-2905Ggnzwh follow up visit related to original Iris Martínez Work Phone: [facility] OrthopedicsComment on above:History of total knee arthroplasty, left (Primary Dx); Acute postoperative pain of kneeStart: 04-27-2025 End: 14-42-8537ryeaqnmouaCXSXDDRPSan Luis Obispo General Hospital HospitalComment on above:AnxietyStart: 04-27-2025 End: 03-91-8530Ezbmxhncph hospital visit by Jordan Martínez Work Phone: [facility] RadiologyStart: 04-26-2025 End: 53-05-0960Vfqwsu OnlyJimmie Garcia DO Work Phone: [facility] Internal Medicine - Family [facility] CenterComment on above:Chronic bilateral low back pain without sciatica; AnxietyStart: 04-17-2025 End: 44-22-5607Ubqspmqvg department patient visitJigar Reynolds MD Work Phone: [facility] Emergency DepartmentStart: 04-12-2025 End: 26-08-3372Eylmuw OnlyJimmie Montgomeryng DO Work Phone: [facility] Internal [facility] - [facility] MedicineStart: 04-07-2025 End: 37-13-0925xktkaeemlbCKKBAF FURLONGLourdes Specialty Hospital HospitalStart: 04-07-2025 End: 94-82-7709Qtfwvbfvrk hospital visit by Amairani Baez MD Work Phone: [facility] PeriopComment on above:Osteoarthritis of left knee, unspecified osteoarthritis typeStart: 04-05-2025 End: 43-16-5935Qghstz outpatient visit 15 minutesJimmie Garcia DO Work Phone: [facility] Internal Medicine - Family MedicineComment on above:Pre-op evaluation (Primary Dx); Primary osteoarthritis of left knee; Mild intermittent asthma, unspecified whether complicated; Class 1 obesity due to excess calories with serious comorbidity and body mass index (BMI) of 34.0 to 34.9 in adultStart: 04-05-2025 End: 28-43-5036Xdlxxzatlvjrl examination doneJimmie Garcia DO Work Phone: [facility] Work Phone: Start: 03-31-2025 End: 82-66-0270wtbcdmtoabSruf ProviderFacility:[facility] Hospitaltart: 03-25-2025 End: 12-65-1405Irlnyi OnlyJimmie Garcia DO Work Phone: [facility] Internal Medicine [facility] MedicineStart: 03-22-2025 End: 86-34-5157Xyoeti OnlyJimmie Garcia DO Work Phone: [facility] Internal Medicine [facility] MedicineStart: 03-19-2025 End: 15-74-9225Oephxg OnlyJimmie Garcia DO Work Phone: [facility] Physicians Internal Medicine [facility] MedicineStart: 03-15-2025 End: 46-48-8423Kujkjkj encounter statusJimmie Garcia DO Work Phone: [facility] Work Phone: Start: 03-15-2025 End: 91-70-2747Ybkgdwhu preventive med est patient 40-64yrsDennis Rochelle Garcia DO Work Phone: [facility] Internal Medicine [facility] HospitalComment on above:Well adult exam (Primary Dx); Class 1 obesity due to excess calories with serious comorbidity and body mass index (BMI) of 34.0 to 34.9 in adult; Generalized anxiety disorder; Encounter for screening mammogram for malignant neoplasm of breast; Screen for colon cancer; Need for vaccination; Need for shingles vaccine; Other acute recurrent sinusitis; Chronic bilateral low back pain without sciaticaStart: 03-08-2025 End: 55-93-7362czfbzxsqstFpzg ProviderFacility:[facility] HospitalStart: 03-08-2025 End: 12-86-3320kchndnsphdQbxw ProviderFacility:[facility] HospitalStart: 23-63-3043nduchdejwcUOIMKVSaint Cabrini Hospital HospitalStart: 02-25-2025 Encounter for other preprocedural examinationSPanola Medical Center Start: 02-09-2025 End: 59-80-5748GjenxkQefjpt Rochelle Joyarominang DO Work Phone: [facility] - Family [facility] Hospitaltart: 02-03-2025 End: 50-15-7497Fgyeqc outpatient new 60 Loi Baez MD Work Phone: [facility] OrthopedicsComment on above:Left knee pain, unspecified chronicity (Primary Dx)Start: 80-39-9286xpbuzatvklHCXFOXHuey P. Long Medical Centertart: 02-03-2025 End: 84-60-5137Ypsdojzvlj hospital visit by Amairani Baez MD Work Phone: [facility] RadiologyStart: 12-25-2024 End: 01-04-1721Czktuj OnlyJimmie Rochelle Joyarominang DO Work Phone: [facility] Internal Medicine - Family MedicineComment on above:Primary osteoarthritis of left knee (Primary Dx)Start: 12-15-2024 End: 25-45-6041Xpxopg OnlyJimmie Rochelle Joyarominang DO Work Phone: [facility] Internal Medicine - Family MedicineComment on above:Chronic bilateral low back pain without sciatica (Primary Dx)Start: 12-03-2024 End: 63-47-2617Yhilhn outpatient visit 25 minutesJimmie Rochelle Joyarominang DO Work Phone: [facility] Internal Medicine - Family MedicineComment on above:Class 1 obesity due to excess calories with serious comorbidity and body mass index (BMI) of 34.0 to 34.9 in adult (Primary Dx); Tremor; Recurrent major depressive disorder, remission status unspecified; Chronic bilateral low back pain without sciatica; Primary osteoarthritis of left knee; AnxietyStart: 11-19-2024 End: 67-75-7015akjqzzraqiXlcoqaValerie Hampton MDFacility:[facility] Hospitaltart: 11-14-2024 End: 57-35-4574RfkeqcAvfhzg G Furlong DO Work Phone: [facility] Internal [facility] - [facility] MedicineStart: 11-11-2024 End: 78-65-7835Jtgtoq OnlyDennis G Furlong DO Work Phone: [facility] - [facility] MedicineStart: 11-05-2024 End: 17-02-6046TmaprcYzgllc G Furlong DO Work Phone: [facility] - [facility] MedicineStart: 10-13-2024 End: 19-47-2259Avedmw OnlyDennis G Furlong DO Work Phone: [facility] Internal Medicine - [facility] HospitalComment on above:Class 1 obesity due to excess calories with serious comorbidity and body mass index (BMI) of 33.0 to 33.9 in adult (Primary Dx) Start: 91-07-5027yhzarsdstlNpibqz Ann Morris DEPUTY COURT CLERK-CNPFacility:[facility] [place]Start: 09-24-2024 End: 05-09-5239nxyglhnburEvwlde Ann Morris APRN-CNPFacility:[facility] [place]Start: 09-01-2024 End: 76-00-9322Aglwij OnlyDennis G Furlong DO Work Phone: [facility] Phys[facility] Internal [facility] MedicineStart: 08-31-2024 End: 61-26-9306Wlbuvu outpatient visit 15 minutesDennis G Furlong DO Work Phone: [facility] Phys[facility] Internal [facility] HospitalComment on above:Class 1 obesity due to excess calories with serious comorbidity and body mass index (BMI) of 33.0 to 33.9 in adult (Primary Dx) Start: 08-16-2024 End: 19-22-0009VxaplpHxcjci G Furlong DO Work Phone: [facility] Internal Medicine - Family MedicineStart: 06-18-2024 End: 78-12-8920zzvfihcyywCwzqci W Secor MDFacility:[facility] Start: 06-18-2024 End: 63-91-2740hkkabtqoclJgowyp W Secor MDFacility:[facility] [place] Start: 05-12-2024 End: 45-86-5934TgrdadYkysk Uvaldo MANDYProMedica Physicians Internal Medicine - Family MedicineStart: 04-07-2024 End: 93-20-5179Mrvfhc Dixie Garcia DO Work Phone: [facility] Internal Medicine - Family MedicineStart: 03-25-2024 End: 75-04-8267Nfzskr Dixie Garcia DO Work Phone: [facility] Internal Medicine - Family MedicineStart: 03-24-2024 End: 84-86-7088Ejtsaw Dixie Garcia DO Work Phone: [facility] Internal Medicine - Family MedicineStart: 03-23-2024 End: 88-70-5594Kcecusouy encounterVanessa Garcia [facility]AREPro[facility] Internal Medicine - Family MedicineStart: 03-19-2024 End: 48-90-3092Pkelwu outpatient visit 25 Bruno Garcia DO Work Phone: [facility] Internal Medicine - Family MedicineComment on above:Nausea and vomiting, unspecified vomiting type (Primary Dx); Hypokalemia; Other fatigue; Class 1 obesity due to excess calories with serious comorbidity and body mass index (BMI) of 33.0 to 33.9 in adultStart: 03-15-2024 End: 49-03-1065Ggnhgxzos department patient visitFAUQUIER HEALTH SYSTEMStart: 02-24-2024 End: 83-61-0240Cbwpht Dixie Garcia DO Work Phone: [facility] Internal Medicine - Family MedicineStart: 02-10-2024 End: 98-56-8618Ismrks Dixie Montgomeryng DO Work Phone: [facility] Internal Medicine - Family MedicineStart: 01-30-2024 End: 71-14-9143uwnxlsavpfKkgxnu W Secor MDFacility:[facility] [place] Start: 01-14-2024 End: 13-30-4901Nlblid OnlyDennis G Furlong DO Work Phone: [facility] Physicians Internal Medicine - Family MedicineComment on above:Class 2 severe obesity due to excess calories with serious comorbidity and body mass index (BMI) of39.0 to 39.9 in adult ([facility]) (Primary Dx)Start: 12-16-2023 End: 62-36-8237Klepaw OnlyDennis G Furlong DO Work Phone: [facility] Physicians Internal Medicine - [facility] MedicineStart: 11-12-2023 End: 05-63-9321Etszqe OnlyDennis G Furlong DO Work Phone: [facility] Physicians Internal Medicine - Family MedicineComment on above:Class 2 severe obesity due to excess calories with serious comorbidity and body mass index (BMI) of39.0 to 39.9 in adult ([facility]) (Primary Dx)Start: 11-07-2023 End: 96-01-0286XginvpPlbii Uvaldo CMAProGreil Memorial [facility] Hospital Physicians Internal Medicine - Family MedicineComment on above:Morbid obesity ([facility]) (Primary Dx)Start: 10-30-2023 End: 56-23-3787Ytwdqm OnlyDennis G Furlong DO Work Phone: [facility] Physicians Internal Medicine - Family MedicineComment on above:Primary osteoarthritis of knee, unspecified laterality (Primary Dx)Start: 10-15-2023 End: 18-12-6964Fxpaht outpatient new 45 minutesDennis G Furlong DO Work Phone: [facility] Internal Medicine - Family MedicineComment on above:Anxiety (Primary Dx); Depression, unspecified depression type; MARYLU (obstructive sleep apnea); Gastroesophageal reflux disease, unspecified whether esophagitis present; Class 2 severe obesity due to excess calories with serious comorbidity and body mass index (BMI) of39.0 to 39.9 in adult (CMS-HCC); Screen for colon cancer; Encounter for screening mammogram for malignant neoplasm of breast; Ex-cigarette smokerStart: 08-21-2023 End: 52-84-3516dqgnfvcbpnZYPJR [facility] HospitalStart: 08-21-2023 Encounter for general adult medical examination without abnormal findingsROBIN [facility] HospitalStart: 75-37-8326sodvkeuvsfQQCBAExcela Health Procedures DateProcedureProcedure DetailPerforming ClinicianStart: 47-36-6849Oy abdomen & pelvis w/contrast materialJigar Reynolds MD Work Phone: Start: 64-59-2056Lzcwgfdu blood count with white cell differential, automatedJigar Reynolds MD Work Phone: Start: 47-65-3636Rvvhaihwlegzs metabolic panelJigar Reynolds MD Work Phone: Start: 01-31-3127Hsoyx drug screeningChad Violeta CHAUNCEY-FURNITURE RESTORER Work Phone: Start: 76-73-3340Ivohh depression screening assessment Jimmie Furlong DO Work Phone: Start: 04-59-4252Lhaza depression screening assessment Jimmie Furlong DO Work Phone: Start: 69-78-9133Pcloz depression screening assessment Jimmie Furlong DO Work Phone: Start: 79-65-2958Yjbqe depression screening assessment Jimmie Furlong DO Work Phone: Start: 67-94-8411Nhtrw depression screening assessment Jimmie Furlong DO Work Phone: Start: 11-97-5413Bxtpz depression screening assessment Jimmie Furlong DO Work Phone: Plan of Treatment DateCare ActivityDetailAuthorStart: 08-83-1092GKcO,Tdap and Td Vaccines (3 - Td or Tdap)DTaP,Tdap and Td Vaccines (3 - Td or Tdap)[facility] SystemStart: 08-58-8567Emugkxf vaccinationTETANUSAviRiverside [facility] SystemStart: 18-21-5913Kakeu panelLipidsBON [facility]OS[facility]ITALStart: 21-41-5329Zicpx BMI Follow Up Plan Adult BMI Follow Up PlanFormerly [facility] Hospitaltart: 31-93-0942Zkpgj BMI ScreeningAdult BMI ScreeningFisher-[facility] SystemStart: 72-33-9468Vdufnszxfx ScreeningDepression ScreeningFisher-Titus Medical Center SystemStart: 51-83-3630Bdreidl ScreeningTobacco ScreeningFisher-Titus Medical Center SystemStart: 18-27-5033Dqslk BMI ScreeningAdult BMI ScreeningFisher-Titus Medical Center SystemStart: 81-56-4387Wkqkbdicyu ScreeningDepression ScreeningFisher-Titus Medical Center SystemStart: 98-15-4083Hnedbcf ScreeningTobacco ScreeningFisher-Titus Medical Center SystemStart: 92-14-0651Nhysy BMI ScreeningAdult BMI ScreeningFisher-Titus Medical Center SystemStart: 59-93-1346Qlqxyiidet ScreeningDepression ScreeningFisher-Titus Medical Center SystemStart: 90-29-6854Jlarnxx ScreeningTobacco ScreeningFisher-[facility]itus Medical [facility] SystemStart: 03-94-5663Yvryy BMI ScreeningAdult BMI ScreeningFisher-Titus Medical Center SystemStart: 71-82-2385Pdyhgsdtwq ScreeningDepression ScreeningFormerly [facility] Hospitaltart: 06-85-4592Hobmyut ScreeningTobacco ScreeningFormerly [facility] Hospitaltart: 08-19-2025 End: 69-23-0293Xqfcjuf encounter hpkvhgtim58/19/2026 2:00 PM EST Office Visit [facility] [address] [place] [address] Cayden Mcdaniel APRN-EDI [address] [place] [address] [facility] OrthopedicsStart: 26-59-8844Hnhktfmdspffvt of varicella zoster vaccineZoster (Shingles) Vaccine (2 of 2)[facility] SystemStart: 40-40-8525Kpogcs vaccine hzv live for subcutaneous useZOSTER (SHINGLES) VACCINE (2 of 2)[facility] Cent[facility]art: 04-27-2025 End: 73-99-1712Assqvli encounter jswzqaimj72/28/2025 9:20 AM EDT Office Visit [facility] [address] [place] [address] Елена Martínez [address] [place] [address] [facility] OrthopedicsStart: 04-05-2025 End: 13-06-1901Fezsrls encounter abuorodnx46/06/2025 8:30 AM EDT Office Visit [facility] - [facility] Medicine [address] [place] [address] Jimmie Garcia DO [address], [place] [address] [facility] - [facility] MedicineStart: 58-71-0780Wxipkbqfi vaccinationInfluenza VaccineFisher-Titus Medical Center SystemComment on above:Postponed from 03/01/2025 (Vaccine Not Available)Start: 03-22-2025 End: 54-24-0708Vmghcpsib to same day surgery axibhk5003/22/2025 12:55 PM EDT - 03/22/2025 2:10 PM EDT Surgery [facility] [address] [place] [address] Joaquín Baez MD [address] [place] [address] ARTHROPLASTY KNEE TOTALLourdes Specialty Hospital PeriopComment on above:ARTHROPLASTY KNEE TOTALStart: 03-22-2025 End: 26-50-2540Ikkjyr kne condyle&platu medial&lat compartmentsARTHROPLASTY KNEE TOTAL Osteoarthritis of left knee, unspecified osteoarthritis type 03/22/2025 12:55 PM EDTAVI ONT ORStart: 03-22-2025 End: 11-33-8249Loqn-asst surgical navigation image-lessASSISTANCE SURGICAL NAVIGATION MUSCULOSKELETAL IMAGELESS ADD-ON PX Osteoarthritis of left knee, unsp ecified osteoarthritis type 03/22/2025 12:55 PM EDTAVI ONT ORStart: 03-22-2025 Subsequent hospital visit by zorwozsry99/22/2025 12:55 PM EDT Hospital Encounter [facility] [address] [place] [address] Joaquín Baez MD [address] [place] [address] Osteoarthritis of left knee, unspecified osteoarthritis type [facility] PeriopComment on above:Osteoarthritis of left knee, unspecified osteoarthritis typeStart: 59-67-4883Alujn BMI ScreeningAdult BMI Screening [facility] SystemStart: 65-17-2446Loumqnabar ScreeningDepression Screening [facility] Hospitaltart: 76-45-5867Vijshzn ScreeningTobacco Screening Formerly [facility] Hospitaltart: 03-15-2025 End: 23-58-3566Rsinwte encounter /15/2025 4:00 PM EDT Office Visit [facility] Physicians Internal Medicine - Family Medicine [address] [place] [address] Jimmie Garcia, DO [address] [facility], [place] [address] [facility] Internal Medicine - Family MedicineStart: 03-15-2025 End: 99-01-7322FGV Breast - bilateral screeningMammography screening bilateral with CAD Imaging Routine Encounter for screening mammogram for malignant neoplasm of breast Expected: 03/15/2025, Expires: 03/15/2026[facility] Work Phone: Comment on above:Expected: 03/15/2025, Expires: 03/15/2026Start: 08-25-4269NURHV-19 VACCINE ( season)COVID-19 VACCINE ( season)[facility] SystemStart: 73-49-7540Jifnhlvgf vaccination [facility] Hospitaltart: 02-25-2025 End: 67-43-0123Jckydvimt to jqgfzdnekhuea52/28/2025 9:00 AM EDT Pre-Operative Nurse Assessment [facility] Pre Admission [address] [place] [address] [employer] [place] Pre AdmissionStart: 00-02-6954icfxmbbcnq AmbulatoryFacility:[facility] Management - [place]Start: 12-03-2024 End: 57-24-0364Pyrttkf encounter yznyqjvyd26/05/2025 4:15 PM EDT Office Visit [facility] - Family Medicine [address] [place] [address] Jimmie Garcia, DO [address], [place] [address] [facility] Internal Medicine [facility] MedicineStart: 01-14-8512Itazf BMI ScreeningAdult BMI ScreeningProPremier Health [facility] SystemStart: 17-06-1796Bzdreawtly ScreeningDepression ScreeningFisher-[facility] SystemStart: 71-13-9953Nypzfjv ScreeningTobacco ScreeningProPremier Health [facility] SystemStart: 08-31-2024 End: 48-98-2862Itsiowk encounter jmyxximvt84/03/2025 4:30 PM EST Office Visit [facility] - Family [facility] [address] [place] [address] Jimmie Garcia, DO [address], [place] [address] [facility] Internal Medicine [facility] MedicineStart: 66-69-6533Fmsavugvul MonitoringDepression MonitoringFAUQUIER HEALTH SYSTEMStart: 04-15-2024 End: 61-61-6724Nchmyzw encounter /16/2024 9:30 AM EDT Office Visit [facility] - Family [facility] [address] [place] [address] Jimmie Garcia, DO [address], [place] [address] [facility] Physicians Internal Medicine - Family MedicineStart: 73-59-6042EAKQO-19 Vaccine ( season)COVID-19 Vaccine ()[facility] SYSTEMStart: 66-82-1151FBDZH-19 Vaccine ()COVID-19 Vaccine ()[facility] SystemStart: 08-47-2894Cmrbqtoej vaccination Influenza VaccineFisher-Titus Medical Center SystemStart: 95-58-6328Rhookxanc vaccination Flu vaccine (#1)[facility] SYSTEMStart: 12-25-2023 End: 12-64-9194Kotizfm encounter procedureACMC Healthcare System - [facility] ImagingStart: 10-15-2023 End: 48-84-6596SY Chest for screening WO contrastCT low dose lung screening (Annual) Imaging Routine Ex-cigarette smoker Expected: 10/15/2023, Expires: 10/14/2024[facility] SystemComment on above:Expected: 10/15/2023, Expires: 10/14/2024Start: 10-15-2023 End: 13-62-4377UMB Breast - bilateral screeningMammography screening bilateral with CAD Imaging Routine Encounter for screening mammogram for malignant neoplasm of breast Expected: 10/15/2023, Expires: 10/14/2024[facility] HospitalComment on above:Expected: 10/15/2023, Expires: 10/14/2024Start: 26-61-7782QHKIG-19 Vaccine ()COVID-19 Vaccine ()[facility] SystemStart: 19-47-9899Czzvunzie for malignant neoplasm of breastBreast cancer screenBON [facility]OS[facility]ITALStart: 01-03-2016 Administration of varicella zoster vaccineZoster (Shingles) Vaccine (1 of 2) [facility] SystemStart: 40-94-4924Japcapcywrxu vaccinationLake County [facility] SystemStart: 01-96-8857Xgxklwcv vaccine (1 of 2)Shingles vaccine (1 of 2)[facility] Hospitalart: 90-09-1801Mmyaqp vaccine hzv live for subcutaneous useZOSTER (SHINGLES) VACCINE (1 of 2)[facility] Centertart: 11-20-2015 DTaP,Tdap and Td Vaccines (2 - Td or Tdap)DTaP,Tdap and Td Vaccines (2 - Td or Tdap)[facility] Hospitaltart: 73-90-3204XEdI/Tdap/Td vaccine (2 - Td or Tdap)DTaP/Tdap/Td vaccine (2 - Td or Tdap)[facility] SYSTEMStart: 63-30-0736Vmhiegi vaccinationTETANUSAUniversity Hospitals Parma Medical Centertart: 04-09-2015 Screening for malignant neoplasm of breastMAMMOGRAM SCREENING DISCUSSIONOhio State University Wexner Medical Centertart: 47-69-1338Vgctydmra for malignant neoplasm of colonBON Holzer Hospitalart: 09-22-2716Iunvk panelLIPID SCREENINGOhio State University We[facility] Medical Centertart: 45-56-8873Pdconrktcsxd 0-64 years Vaccine (2 of 2 - PPSV23 or PCV20)Pneumococcal 0-64 years Vaccine (2 of 2 - PPSV23 or PCV20)[facility] SYSTEMStart: 69-91-6387Dpsntrgeo for malignant neoplasm of cervixBON Holzer Hospitalart: 70-84-3040Qamcvjfwu for malignant neoplasm of cervix [facility] Hospitalart: 73-35-0308Milrhheqy B vaccinationHEP B VACCINE (1 of 3 - 19+ 3-dose series)[facility] Centertart: 21-20-3060Fvnuxnvux B vaccine (1 of 3 - 19+ 3-dose series)Hepatitis B vaccine (1 of 3 - 19+ 3-dose series)[facility] Hospitalart: 66-14-0226Koiuz BMI Follow Up PlanAdult BMI Follow Up PlanFormerly [facility] Hospitaltart: 43-04-1697Speaqdxyc C screening Hepatitis C screenBON [facility]OS[facility]ITALStart: 55-88-6322EYE screeningInova Children's Hospitalart: 06-12-5616Rugxhillw C screeningHEPATITIS C VIRUS SCREENINGTuscarawas Hospital End: 76-56-8933Iyict metabolic 2000 panel - Serum or PlasmaBasic Metabolic Panel Lab Routine Hypokalemia 1 Occurrences starting 03/19/2024 until 03/19/2025 [facility] Work Phone: Comment on above:1 Occurrences starting 03/19/2024 until 03/19/2025 End: 71-61-3995RHT panel - Blood by Automated countCBC without diff Lab Routine Tremor 1 Occurrences starting 12/03/2024 until 12/03/2025[facility] CenterDou[facility] System Comment on above:1 Occurrences starting 12/03/2024 until 12/03/2025BC panel - Blood by Automated countCBC without diff Lab Routine Tremor 12/03/2024 5:19 PM [employer]Colog[facility]ard Non-[facility]icaCologuard Non-[facility] Lab Routine Screen for colon cancer Ordered: [employer] Work Phone: Comment on above:Ordered: 4Cologuard Non-ProMedicaCologuard Non-[facility] Lab Routine Screen for colon cancer Ordered: 03/15/2025[facility] CenterDoximityComment on above:Ordered: 03/15/2025 End: 25-98-7424Kvsbbjhtynbur metabolic 2000 panel - Serum or PlasmaComprehensive metabolic panel Lab Routine Tremor 1 Occurrences starting 12/03/2024 until 12/03/2025[employer] Work Phone: Comment on above:1 Occurrences starting 12/03/2024 until 12/03/2025omprehensive metabolic 2000 panel - Serum or Plasma Comprehensive metabolic panel Lab Routine Tremor 12/03/2024 5:19 PM [employer] End: 87-64-2590[place] [Mass/volume] in Serum or PlasmaMagnesium Lab Routine Hypokalemia Other fatigue 1 Occurrences starting 03/19/2024 until 03/19/2025 Emotive CommunicationsComment on above:1 Occurrences starting 03/19/2024 until 03/19/2025Radiography for bone length studiesXR BONE LENGTH STUDY Imaging Routine Left knee pain, unspecified chronicity 02/03/2025 1:[address] [facility] Work Phone: Radiography for bone length studiesXR BONE LENGTH STUDY Imaging Routine History of total knee arthroplasty, left 04/27/2025 9:04 AM [facility] REQUESTSURGICAL PATHOLOGY REQUEST Surg Path Routine Osteoarthritis of left knee, unspecified osteoarthritis type Release Upon Ordering for 1 Occurrences [facility] Comment on above:Release Upon Ordering for 1 Occurrences starting 04/07/2025 End: 86-94-7592KNU with ReflexTSH with Reflex Lab Routine Tremor 1 Occurrences starting 12/03/2024 until 12/03/2025[facility]1 Occurrences starting 12/03/2024 until 12/03/2025TS with ReflexTSH with Reflex Lab Routine Tremor 12/03/2024 5:19 PM [facility] End: 29-55-1193XW [facility]:One Time for 1 Occurrences starting 04/07/2025 until 04/07/2025XR Knee - left 3 ViewsXR KNEE LEFT 3 VIEWS Imaging Routine History of total knee arthroplasty, left 04/27/2025 9:04 AM [facility] - left 4 ViewsXR KNEE LEFT 4+ VIEWS Imaging Routine Left knee pain, unspecified chronicity 02/03/2025 1:53 PM [place] [facility] Immunizations Immunization DateImmunizationNotesCare MikjhjwpGfpqdfdg02-59-1172xbjhmjp toxoid, reduced diphtheria toxoid, and acellular pertussis vaccine, adsorbedDennis Furlong DO Work Phone: [facility]09-15-2025zoster vaccine recombinantDennis Furlong DO Work Phone: [facility] HospitalPvgjfz50-55-6197Kzltbzumwhos, In Clinic,; Translations: [Drug or medicament (substance)]Jimmie Furlong DO Work Phone: [facility] Ozddim55-08-0870epvejj vaccine, unspecified formulationDennis Furlong DO Work Phone: [facility] Center[facility] [facility] HospitalUcvkcy91-52-8437XOIUK-83, MODERNA BLUE border, Primary or Immunocompromised, (age 12y+), IM, 100 mcg/0.5mLBON [facility] HOSPITALIAFTQJ96-04-3543VRPTP-83, MODERNA BLUE border, Primary or Immunocompromised, (age 12y+), IM, 100 mcg/0.5mLFAUQUIER HEALTH SYSTEM 23-10-4377zusoplc toxoid, reduced diphtheria toxoid, and acellular pertussis vaccine, adsorbedDennis Furlong DO Work Phone: [facility] HospitalLcsvcl90-55-1295rbvcarpmyctf conjugate vaccine, 13 valentDennis Furlong DO Work Phone: [facility] Payers DatePayer CategoryPayerPolicy [id number] Care (unspecified)[employer] NETWORK ACCESS Member Subscriber Plan / Payer (Effective 2024-Present) Name: SAKSHI HIGHTOWER Relation to Subscriber: Self Name: Sakshi Hightower Payer ID: Not on file Type: Not on file Address: [address] [id number]. [id number] Managed Care - PPO [id number] [id number] [id number] 2.840.1.441335.3.57[id number] 2.840.1.230913.3.57[id number] 2.840.1.087381.3.57[id number] 2.16.840.1.001999.3.57[id number] 2.16.840.1.618716.3.57[id number] 2.16.840.1.630977.3.57[id number] 2.16.840.1.558097.3.57[id number] 2.16.840.1.529327.3.57[id number] 2.16.840.1.325471.3.57[id number] 2..840.1.133227.3.57[id number] 2.16.840.1.856003.3.57[id number] 2..840.1.944479.3.57[id number] 2..840.1.077938.3.57[id number] 2.840.1.789451.3.57[id number] 2.840.1.145075.3.57[id number] 2.840.1.359073.3.579.2.983 Social History DateTypeDetailFacilityStart: 08-01-2023 End: 46-51-9301Xmugpwm smoking status NHISEx-smokerFAUQUIER HEALTH SYSTEM Start: 07-01-2014 End: 20-06-9702Rticxzu of tobacco useCurrent smokerFormerly [facility] Hospitaltart: 07-01-2014 End: 43-63-9965Dgptguw of tobacco useCigarette SmokerSub[facility] & [facility] Start: 08-01-2023 End: 12-56-8307Vqzkrxa use and exposureSmokeless tobacco non-userFormerly [facility] Hospitaltart: 03-15-2024 End: 19-26-4502Gqloeshqs beverage intakeCurrent drinker of alcohol (finding) Formerly [facility]: 08-01-2023 End: 77-09-1724Honwbqp of Social functionFormerly [facility] Hospitaltart: 08-01-2023 End: 63-21-1115Astcygy use panelSuburban Community Hospital & Brentwood HospitalPatient Health Questionnaire 9 item (PHQ-9) total score [Reported][address] [place] [address] Start: 77-95-2938Sxy assigned at birthNot on fileFormerly [facility] Hospitaltart: 26-70-7172Ufmfvbu CommentsocialFormerly [facility] Hospitaltart: 08-03-2012 End: 62-66-3959KjqZvcsmp (finding)Formerly [facility] Hospitaltart: 02-03-2025 Tobacco smoking status NHISNever smoked tobaccoOhio State University Wexner Medical Centertart: 31-79-1744Rgajmhv CommentQuit 10 years agoOhio State University Wexner Medical Centertart: 02-11-2025 Alcohol CommentoccassionalOhio State University Wexner Medical Centertart: 60-63-8604Lqyura identity Identifies as female gender (finding)[facility]: 63-98-0229Quwsau orientationHeterosexual (finding)[facility] HospitalHow often to you have a drink containing alcohol?[facility] Medical Equipment Procedure CodeEquipment CodeEquipment Original TextEquipment IdentifierDates Attune Patella Medialized Dome 32mm Cemented [id number]: 04-07-2025 Attune Femoral Cruciate Retaining Size 6 Left [id number]: 81-94-8859Wibeln Knee System Tibial Base Fixed Bearing Size 5 Cemented [id number]: 84-81-0809Nrovck Knee System Tibial Insert Fixed Bearing Cruciate Retaining Size 6 7mm [id number]: 36-42-1898Aaqowji R 1x40 [id number]: 95-10-5511Dhffogb R [id number]: 04-07-2025 Functional Status WyxjOsqkflsqagVmodfnBizlvwdc42-18-4390Ytdtznxipky anxiety disorder 7 item (DARIA-7)[facility] Clinical Notes 10-15-2023 to 04-27-2025 Note Date & AmkhWfhiDewtagzo64-88-2544 History of Present illness Narrative* Miriam Alton - 04/27/2025 9:20 AM EDT Ortho Nurse - Established Patient Intake Room#: 4 Date: 04/27/2025 9:09 AM Patient: Sakshi Hightower MR#: [id number] : 1965 Age: 60 y.o. 3wk L TKA Pt stated she is doing good,but just painful that is a 01/07. Pt stated she needs a refillon her pain meds took the last one last night. Pt was wearing her jamie hose and using a walker at the time. Referring Physician: Sameer Wilburn PA-C Insurance: Payor: [employer] / Plan: [employer] Access / Product Type: *No Product type* / Chief Complaint Patient presents with Left Knee - Post Op Visit Visit Vitals Ht 1.727 m (5' 8 ) Wt 96.2 kg (212 lb) BMI 32.23 kg/m Pain Recent Labs No results found for: CRP No results found for: SEDRATE Lab Results Component Value Date WBC 7.4 04/17/2025 HGB 10.7 (L) 04/17/2025 HCT 31.7 (L) 04/17/2025 PLATELET 462 (H) 04/17/2025 MCV 93.3 04/17/2025 History Past Medical History[1] Past Surgical History[2] Family History: Her family history includes Dementia in her mother. Social History: Her reports that she has quit smoking. Her smoking use included cigarettes. She hasnever used smokeless tobacco. She reports current alcohol use. She reports that she does not currently use drugs. Outpatient Medications Prior to Visit Medication Sig Dispense Refill acetaminophen 325 MG Suppository Insert 1 suppository rectally every 4 hours as needed for Mild Pain. Acetaminophen 325 MG tablet Take 2 tablets by mouth every 4 hours as needed for Mild Pain. 50 tablet 1 Albuterol 108 (90 Base) MCG/ACT Aero Soln inhaler Inhale 2 puffs. (Patient taking differently: Inhale 2 puffs as needed.) apixaban (Eliquis) 2.5 MG tablet Take 1 tablet by mouth every 12 hours. 70 tablet 0 Cholecalciferol (Vitamin D3) 1.25 MG (80318 UT) capsule Take 1 capsule by mouth once a week. Docusate 100 MG capsule Take 1 capsule by mouth 2 times daily. 60 capsule 0 EPINEPHrine 0.3 MG/0.3ML Solution Auto-injector injection Inject 0.3 mL intramuscularly. (Patient taking differently: Inject 0.3 mL intramuscularly as needed.) escitalopram 20 MG tablet Take 1 tablet by mouth daily every morning. HERBAL PRODUCT Replace this text with the name of the herbal product (Patient taking differently: daily. Saffron) HERBAL PRODUCT daily. Replace this text with the name of the herbal product LORazepam 0.5 MG tablet Take 1 tablet by mouth 2 times daily as needed for Anxiety. Misc Natural Products (TURMERIC, CURCUMIN, PO) Take by mouth daily. Multiple Vitamin (Multivitamin Adult) tablet Take 1 tablet by mouth daily. 30 tablet 0 naloxone 4 MG/0.1ML 1 spray by Nasal route once for 1 dose. [place] into the nose as directed. Call 911. If no response in 2 minutes use a new nasal spray in other nostril. Repeat until help arrives. 1Each 0 omeprazole [address] capsule Take 1 capsule by mouth daily. 30 capsule 0 Ondansetron 8 MG Tab Dispersible tablet Take 1 tablet by mouth Every 8 hours as needed. oxyCODONE 5 MG tablet 5-10 mg every 6 hours as needed for moderate to severe pain Ween as fbubdbdxq69 tablet 0 Pantoprazole [address] tablet DR Take 1 tablet by mouth. (Patient taking differently: Take 1 tablet by mouth every evening at 6 PM.) Potassium chloride 20 MEQ Tab CR tablet Take 1 tablet by mouth 2 times daily with meals for 3 days.6 tablet 0 Pregabalin 50 MG capsule Take 1 capsule by mouth 3 times daily. Promethazine 25 MG tablet Take 1 tablet by mouth every 6 hours as needed (Nausea/Vomiting). 10 tablet 1 Semaglutide,0.25 or 0.5MG/DOS, 2 MG/3ML Solution Pen-injector Inject under the skin once a week. tiZANidine 4 MG tablet Take 1 tablet by mouth every 8 hours as needed for Muscle spasms. No facility-administered medications prior to visit. Current Medications[3] Allergies: She is allergic to almond meal, peanut-containing drug products, tramadol, and gramineaepollens. [1] Past Medical History: Diagnosis Date Arthritis Asthma Depression GERD (gastroesophageal reflux disease) [2] Past Surgical History: Procedure Laterality Date ARTHROPLASTY KNEE TOTAL Left 04/07/2025 Laterality: Left; Surgeon: Joaquín Baez MD; Location: [facility] SURGICAL NAVIGATION MUSCULOSKELETAL IMAGELESX Left 04/07/2025 Laterality: Left; Surgeon: Joaquín Baez MD; Location: [facility] GASTRIC BYPASS 2014 BACK SURGERY 1999 laminectomy L4-5 TONSILLECTOMY [3] Current Outpatient Medications: [Paused] acetaminophen 325 MG Suppository, Insert 1 suppository rectally every 4 hours as needed for Mild Pain., Disp: , Rfl: Acetaminophen 325 MG tablet, Take 2 tablets by mouth every 4 hours as needed for Mild Pain., Disp: 50 tablet, Rfl: 1 Albuterol 108 (90 Base) MCG/ACT Aero Soln inhaler, Inhale 2 puffs. (Patient taking differently: Inhale 2 puffs as needed.), Disp: , Rfl: apixaban (Eliquis) 2.5 MG tablet, Take 1 tablet by mouth every 12 hours., Disp: 70 tablet, Rfl: 0 Cholecalciferol (Vitamin D3) 1.25 MG (93375 UT) capsule, Take 1 capsule by mouth once a week., Disp: , Rfl: Docusate 100 MG capsule, Take 1 capsule by mouth 2 times daily., Disp: 60 capsule, Rfl: 0 EPINEPHrine 0.3 MG/0.3ML Solution Auto-injector injection, Inject 0.3 mL intramuscularly. (Patient taking differently: Inject 0.3 mL intramuscularly as needed.), Disp: , Rfl: escitalopram 20 MG tablet, Take 1 tablet by mouth daily every morning., Disp: , Rfl: HERBAL PRODUCT, Replace this text with the name of the herbal product (Patient taking differently: daily. Saffron), Disp: , Rfl: HERBAL PRODUCT, daily. Replace this text with the name of the herbal product, Disp: , Rfl: hydroCODone-acetaminophen 5-325 MG tablet, Take 1-2 tablets by mouth every 6 hours as needed for upto 7 days. Do not take over 4000mg acetaminophen daily., Disp: 30 tablet, Rfl: 0 LORazepam 0.5 MG tablet, Take 1 tablet by mouth 2 times daily as needed for Anxiety., Disp: , Rfl: Misc Natural Products (TURMERIC, CURCUMIN, PO), Take by mouth daily., Disp: , Rfl: Multiple Vitamin (Multivitamin Adult) tablet, Take 1 tablet by mouth daily., Disp: 30 tablet, Rfl: 0 naloxone 4 MG/0.1ML, 1 spray by Nasal route once for 1 dose. [place] into the nose as directed. Call 911. If no response in 2 minutes use a new nasal spray in other nostril. Repeat until help arrives.,Disp: 1 Each, Rfl: 0 omeprazole [address] capsule, Take 1 capsule by mouth daily., Disp: 30 capsule, Rfl: 0 Ondansetron 8 MG Tab Dispersible tablet, Take 1 tablet by mouth Every 8 hours as needed., Disp: , Rfl: oxyCODONE 5 MG tablet, 5-10 mg every 6 hours as needed for moderate to severe pain Ween as tolerated, Disp: 30 tablet, Rfl: 0 Pantoprazole [address] tablet DR, Take 1 tablet by mouth. (Patient taking differently: Take 1 tablet by mouth every evening at 6 PM.), Disp: , Rfl: Potassium chloride 20 MEQ Tab CR tablet, Take 1 tablet by mouth 2 times daily with meals for 3 days., Disp: 6 tablet, Rfl: 0 Pregabalin 50 MG capsule, Take 1 capsule by mouth 3 times daily., Disp: , Rfl: Promethazine 25 MG tablet, Take 1 tablet by mouth every 6 hours as needed (Nausea/Vomiting)., Disp:10 tablet, Rfl: 1 Semaglutide,0.25 or 0.5MG/DOS, 2 MG/3ML Solution Pen-injector, Inject under the skin once a week., Disp: , Rfl: tiZANidine 4 MG tablet, Take 1 tablet by mouth every 8 hours as needed for Muscle spasms., Disp: , Rfl: * Елена Martínez - 04/27/2025 9:20 AM EDT HPI: Sakshi Hightower is 3 weeks s/p left TKA. She is happy with her recovery to date. She reports She has no present complaints. She is participating in PT in the OP setting, using Eliquis for DVTprophylaxis along with compression stockings. She is using Tylenol and [place] as needed for pain control. Reports is out of her norco as of yesterday PHYSICAL EXAM: Today on examination she is Ht 1.727 m (5' 8 ) Wt 96.2 kg (212 lb) BMI 32.23 kg/m Smoking Status Former Body mass index is 32.23 kg/m . Pain is reported as 7/10. Incision is healing well without erythema, drainage, induration or evidence of dehiscence. Scant amount old skin glue and scabbing noted. There is moderate global knee swelling. Calves are soft and non tender bilaterally with negative Homans sign. Distal neurovascular exam is intact. ROM is reported as 5-100 in physical therapy, today it is found to be 2-110. The examination is stable to varus and valgus stress. DIAGNOSTIC STUDIES/INTERPRETATION: X-rays were reviewed today and reveal Cemented total knee arthroplasty in good position and alignment unchanged from the immediate postop films. Long standing films demonstrate neutral recreation of the mechanical axis through the operative leg. Assessment/Plan: 3 weeks postop left TKA. -Continue DVT prophylaxis as prescribed. -Dental prophylaxis was prescribed and instructions given. Pt was encouraged to delay any routine cleaning etc for minimum of three months post-op but was encouraged to manage any broken tooth, infection immediately. -We discussed return to driving and safety in doing so. -Ongoing wound care was discussed -She does reports having some anxiety since surgery, due to some issues with pain and brief vomitting illness. Did recently transition back to her home. She will continue to monitor this and discuss with PCP if not improving. -Erx to pharmacy for refill of the [place] at this time, she knows to be actively weaning as tolerated. -Discussed what to expect from this knee in the coming post operative period as well as recommendation for gradual progression of activity -Continue physical therapy- if ROM goals not obtained She knows to call the office for a follow up appointment. -We will otherwise plan for follow up at 4 months post op for radiological and clinical evaluation unless an earlier need should arise. All questions and concerns were addressed at this appointment and the patient expressed understanding. They were encouraged to call in to the office should any new concerns arise. All pertinent portions of the clinical sales support technician documentation was reviewed and agree. Елена Martínez Ortho Nurse - Established Patient Intake Room#: 4 Date: 04/27/2025 9:09 AM Patient: Sakshi Hightower MR#: [id number] : 1965 Age: 60 y.o. 3wk L TKA Pt stated she is doing good,but just painful that is a 01/07. Pt stated she needs a refillon her pain meds took the last one last night. Pt was wearing her jamie hose and using a walker at the time. Referring Physician: Sameer Wilburn PA-C Insurance: Payor: [employer] / Plan: [employer] Access / Product Type: *No Product type* / Chief Complaint Patient presents with Left Knee - Post Op Visit Visit Vitals Ht 1.727 m (5' 8 ) Wt 96.2 kg (212 lb) BMI 32.23 kg/m Pain Recent Labs No results found for: CRP No results found for: SEDRATE Lab Results Component Value Date WBC 7.4 04/17/2025 HGB 10.7 (L) 04/17/2025 HCT 31.7 (L) 04/17/2025 PLATELET 462 (H) 04/17/2025 MCV 93.3 04/17/2025 History Past Medical History[1] Past Surgical History[2] Family History: Her family history includes Dementia in her mother. Social History: Her reports that she has quit smoking. Her smoking use included cigarettes. She hasnever used smokeless tobacco. She reports current alcohol use. She reports that she does not currently use drugs. Outpatient Medications Prior to Visit Medication Sig Dispense Refill acetaminophen 325 MG Suppository Insert 1 suppository rectally every 4 hours as needed for Mild Pain. Acetaminophen 325 MG tablet Take 2 tablets by mouth every 4 hours as needed for Mild Pain. 50 tablet 1 Albuterol 108 (90 Base) MCG/ACT Aero Soln inhaler Inhale 2 puffs. (Patient taking differently: Inhale 2 puffs as needed.) apixaban (Eliquis) 2.5 MG tablet Take 1 tablet by mouth every 12 hours. 70 tablet 0 Cholecalciferol (Vitamin D3) 1.25 MG (96132 UT) capsule Take 1 capsule by mouth once a week. Docusate 100 MG capsule Take 1 capsule by mouth 2 times daily. 60 capsule 0 EPINEPHrine 0.3 MG/0.3ML Solution Auto-injector injection Inject 0.3 mL intramuscularly. (Patient taking differently: Inject 0.3 mL intramuscularly as needed.) escitalopram 20 MG tablet Take 1 tablet by mouth daily every morning. HERBAL PRODUCT Replace this text with the name of the herbal product (Patient taking differently: daily. Saffron) HERBAL PRODUCT daily. Replace this text with the name of the herbal product LORazepam 0.5 MG tablet Take 1 tablet by mouth 2 times daily as needed for Anxiety. Misc Natural Products (TURMERIC, CURCUMIN, PO) Take by mouth daily. Multiple Vitamin (Multivitamin Adult) tablet Take 1 tablet by mouth daily. 30 tablet 0 naloxone 4 MG/0.1ML 1 spray by Nasal route once for 1 dose. [place] into the nose as directed. Call 911. If no response in 2 minutes use a new nasal spray in other nostril. Repeat until help arrives. 1Each 0 omeprazole [address] capsule Take 1 capsule by mouth daily. 30 capsule 0 Ondansetron 8 MG Tab Dispersible tablet Take 1 tablet by mouth Every 8 hours as needed. oxyCODONE 5 MG tablet 5-10 mg every 6 hours as needed for moderate to severe pain Ween as yotpffdqw74 tablet 0 Pantoprazole [address] tablet DR Take 1 tablet by mouth. (Patient taking differently: Take 1 tablet by mouth every evening at 6 PM.) Potassium chloride 20 MEQ Tab CR tablet Take 1 tablet by mouth 2 times daily with meals for 3 days.6 tablet 0 Pregabalin 50 MG capsule Take 1 capsule by mouth 3 times daily. Promethazine 25 MG tablet Take 1 tablet by mouth every 6 hours as needed (Nausea/Vomiting). 10 tablet 1 Semaglutide,0.25 or 0.5MG/DOS, 2 MG/3ML Solution Pen-injector Inject under the skin once a week. tiZANidine 4 MG tablet Take 1 tablet by mouth every 8 hours as needed for Muscle spasms. No facility-administered medications prior to visit. Current Medications[3] Allergies: She is allergic to almond meal, peanut-containing drug products, tramadol, and gramineaepollens. [1] Past Medical History: Diagnosis Date Arthritis Asthma Depression GERD (gastroesophageal reflux disease) [2] Past Surgical History: Procedure Laterality Date ARTHROPLASTY KNEE TOTAL Left 04/07/2025 Laterality: Left; Surgeon: Joaquín Baez MD; Location: [facility] SURGICAL NAVIGATION MUSCULOSKELETAL IMAGELESX Left 04/07/2025 Laterality: Left; Surgeon: Joaquín Baez MD; Location: [facility] GASTRIC BYPASS 2014 BACK SURGERY 1999 laminectomy L4-5 TONSILLECTOMY [3] Current Outpatient Medications: [Paused] acetaminophen 325 MG Suppository, Insert 1 suppository rectally every 4 hours as needed for Mild Pain., Disp: , Rfl: Acetaminophen 325 MG tablet, Take 2 tablets by mouth every 4 hours as needed for Mild Pain., Disp: 50 tablet, Rfl: 1 Albuterol 108 (90 Base) MCG/ACT Aero Soln inhaler, Inhale 2 puffs. (Patient taking differently: Inhale 2 puffs as needed.), Disp: , Rfl: apixaban (Eliquis) 2.5 MG tablet, Take 1 tablet by mouth every 12 hours., Disp: 70 tablet, Rfl: 0 Cholecalciferol (Vitamin D3) 1.25 MG (14193 UT) capsule, Take 1 capsule by mouth once a week., Disp: , Rfl: Docusate 100 MG capsule, Take 1 capsule by mouth 2 times daily., Disp: 60 capsule, Rfl: 0 EPINEPHrine 0.3 MG/0.3ML Solution Auto-injector injection, Inject 0.3 mL intramuscularly. (Patient taking differently: Inject 0.3 mL intramuscularly as needed.), Disp: , Rfl: escitalopram 20 MG tablet, Take 1 tablet by mouth daily every morning., Disp: , Rfl: HERBAL PRODUCT, Replace this text with the name of the herbal product (Patient taking differently: daily. Saffron), Disp: , Rfl: HERBAL PRODUCT, daily. Replace this text with the name of the herbal product, Disp: , Rfl: hydroCODone-acetaminophen 5-325 MG tablet, Take 1-2 tablets by mouth every 6 hours as needed for upto 7 days. Do not take over 4000mg acetaminophen daily., Disp: 30 tablet, Rfl: 0 LORazepam 0.5 MG tablet, Take 1 tablet by mouth 2 times daily as needed for Anxiety., Disp: , Rfl: Misc Natural Products (TURMERIC, CURCUMIN, PO), Take by mouth daily., Disp: , Rfl: Multiple Vitamin (Multivitamin Adult) tablet, Take 1 tablet by mouth daily., Disp: 30 tablet, Rfl: 0 naloxone 4 MG/0.1ML, 1 spray by Nasal route once for 1 dose. [place] into the nose as directed. Call 911. If no response in 2 minutes use a new nasal spray in other nostril. Repeat until help arrives.,Disp: 1 Each, Rfl: 0 omeprazole [address] capsule, Take 1 capsule by mouth daily., Disp: 30 capsule, Rfl: 0 Ondansetron 8 MG Tab Dispersible tablet, Take 1 tablet by mouth Every 8 hours as needed., Disp: , Rfl: oxyCODONE 5 MG tablet, 5-10 mg every 6 hours as needed for moderate to severe pain Ween as tolerated, Disp: 30 tablet, Rfl: 0 Pantoprazole [address] tablet DR, Take 1 tablet by mouth. (Patient taking differently: Take 1 tablet by mouth every evening at 6 PM.), Disp: , Rfl: Potassium chloride 20 MEQ Tab CR tablet, Take 1 tablet by mouth 2 times daily with meals for 3 days., Disp: 6 tablet, Rfl: 0 Pregabalin 50 MG capsule, Take 1 capsule by mouth 3 times daily., Disp: , Rfl: Promethazine 25 MG tablet, Take 1 tablet by mouth every 6 hours as needed (Nausea/Vomiting)., Disp:10 tablet, Rfl: 1 Semaglutide,0.25 or 0.5MG/DOS, 2 MG/3ML Solution Pen-injector, Inject under the skin once a week., Disp: , Rfl: tiZANidine 4 MG tablet, Take 1 tablet by mouth every 8 hours as needed for Muscle spasms., Disp: , Rfl: documented in this [facility]10-18-2025 Emergency department Note* Zofia Davison RN - 04/17/2025 1:26 AM EDT K gtt not available in ED pyxis, PCC notified about med need. [facility]10-18-2025 Emergency department Note* Zofia Davison RN - 04/17/2025 1:26 AM EDT K gtt not available in ED pyxis, PCC notified about med need. * Jigar Reynolds MD - 04/17/2025 12:39 AM EDT Emergency Department Report [facility] EMERGENCY DEPARTMENT Service Date:.04/17/25 PCP: Jimmie Garcia Chief Complaint: Chief Complaint Patient presents with Post-Op Problem Left knee replaced on Saturday. Now vomiting for a couple days and got worse today. Pain in left knee 10/10. HPI Sakshi Hightower is a 60 y.o. female presents to the ED today due to vomiting. Patient states that she had physical therapy which markedly exacerbated her knee pain after her surgery. She alsostarted vomiting after the pain started. She has been unable to keep her pain medication down. Currently she states the pain is 10/10. She has a mild abdominal discomfort in his still very nauseous. Review of Systems: Review of Systems Constitutional: Negative for fever. Gastrointestinal: Negative for diarrhea. Past Medical History: Past Medical History[1] Past Surgical History: Past Surgical History[2] Allergies: Allergies[3] Medications: Discharge Medication List as of 04/17/2025 4:05 AM CONTINUE these medications which have CHANGED Details Potassium chloride 20 MEQ Tab CR tablet Take 1 tablet by mouth 2 times daily with meals for 3 days.Normal Disp-6 tablet, R-0 Promethazine 25 MG tablet Take 1 tablet by mouth every 6 hours as needed (Nausea/Vomiting). Normal Disp-10 tablet, R-1 CONTINUE these medications which have NOT CHANGED Details acetaminophen 325 MG Suppository Insert 1 suppository rectally every 4 hours as needed for Mild Pain. Historical MedPaused since 04/07/2025. Resumes on 05/08/2025. Acetaminophen 325 MG tablet Take 2 tablets by mouth every 4 hours as needed for Mild Pain. Normal Disp-50 tablet, R-1 Albuterol 108 (90 Base) MCG/ACT Aero Soln inhaler Inhale 2 puffs. Historical Med apixaban (Eliquis) 2.5 MG tablet Take 1 tablet by mouth every 12 hours. Normal Disp-70 tablet, R-0 Cholecalciferol (Vitamin D3) 1.25 MG (27739 UT) capsule Take 1 capsule by mouth once a week. Historical Med Docusate 100 MG capsule Take 1 capsule by mouth 2 times daily. Normal Disp-60 capsule, R-0 EPINEPHrine 0.3 MG/0.3ML Solution Auto-injector injection Inject 0.3 mL intramuscularly. HistoricalMedFor patients >/= 30 kg. escitalopram 20 MG tablet Take 1 tablet by mouth daily every morning. Historical Med !! HERBAL PRODUCT Replace this text with the name of the herbal product Historical Med !! HERBAL PRODUCT daily. Replace this text with the name of the herbal product Historical Med LORazepam 0.5 MG tablet Take 1 tablet by mouth 2 times daily as needed for Anxiety. Historical Med Misc Natural Products (TURMERIC, CURCUMIN, PO) Take by mouth daily. Historical Med Multiple Vitamin (Multivitamin Adult) tablet Take 1 tablet by mouth daily. Normal Disp-30 tablet, R-0 naloxone 4 MG/0.1ML 1 spray by Nasal route once for 1 dose. [place] into the nose as directed. Call 911. If no response in 2 minutes use a new nasal spray in other nostril. Repeat until help arrives. Normal Disp-1 Each, R-0 omeprazole [address] capsule Take 1 capsule by mouth daily. Normal Disp-30 capsule, R-0 Ondansetron 8 MG Tab Dispersible tablet Take 1 tablet by mouth Every 8 hours as needed. Historical Med oxyCODONE 5 MG tablet 5-10 mg every 6 hours as needed for moderate to severe pain Ween as toleratedNormal Disp-30 tablet, R-0Prescribe no greater than 7 days (adult) or 5 days (minor) for acute painunless justification documented in chart Pantoprazole [address] tablet DR Take 1 tablet by mouth. Historical Med Pregabalin 50 MG capsule Take 1 capsule by mouth 3 times daily. Historical Med Semaglutide,0.25 or 0.5MG/DOS, 2 MG/3ML Solution Pen-injector Inject under the skin once a week. Historical Med tiZANidine 4 MG tablet Take 1 tablet by mouth every 8 hours as needed for Muscle spasms. HistoricalMed !! - Potential duplicate medications found. Please discuss with provider. Family History: Family History Problem Relation Age of Onset Dementia Mother Social History: Social History Socioeconomic History Marital status: Spouse name: Not on file Number of children: Not on file Years of education: Not on file Highest education level: Not on file Occupational History Not on file Tobacco Use Smoking status: Former Types: Cigarettes Smokeless tobacco: Never Tobacco comments: Quit 10 years ago Vaping Use Vaping status: Never Used Substance and Sexual Activity Alcohol use: Yes Comment: occassional Drug use: Not Currently Comment: gummies with THC last taken 2 months Sexual activity: Not on file Other Topics Concern Not on file Social History Narrative Not on file Social Drivers of Health Financial Resource Strain: Not on file Food Insecurity: No Food Insecurity (04/05/2025) Received from [employer] Hunger Screening Within the past 12 months we worried whether our food would run out before we got money to buy more.: Never True Within the past 12 months the food we bought just didn't last and we didn't have money to get more.: Never True Transportation Needs: No Transportation Needs (03/15/2025) Received from [employer] PRAPARE - Transportation Lack of Transportation (Medical): No Lack of Transportation (Non-Medical): No Physical Activity: Insufficiently Active (08/31/2024) Received from [employer] Exercise Vital Sign On average, how many days per week do you engage in moderate to strenuous exercise (like a brisk walk)?: 3 days On average, how many minutes do you engage in exercise at this level?: 20 min Stress: Not on file Social Connections: Not on file Personal Safety: Not on file Housing Stability: Low Risk (10/15/2023) Received from [employer] Housing Instability Are you worried or concerned that in the next two months you may not have stable housing that you own, rent or stay in as a part of a household?: No Physical Exam: Physical Exam Vitals and nursing note reviewed. Constitutional: Appearance: Normal appearance. She is not toxic-appearing or diaphoretic. HENT: Head: Normocephalic and atraumatic. Mouth/Throat: Pharynx: Oropharynx is clear. Cardiovascular: Rate and Rhythm: Normal rate and regular rhythm. Pulses: Normal pulses. Heart sounds: Normal heart sounds. Pulmonary: Effort: Pulmonary effort is normal. Breath sounds: Normal breath sounds. Abdominal: General: Bowel sounds are normal. Palpations: Abdomen is soft. Tenderness: There is abdominal tenderness. Musculoskeletal: General: No deformity. Skin: General: Skin is warm. Neurological: General: No focal deficit present. Mental Status: She is alert and oriented to person, place, and time. Psychiatric: Mood and Affect: Mood normal. Behavior: Behavior normal. Vital Signs During ED Visit Patient Vitals for the past 24 hrs: BP Temp Temp src Pulse Resp SpO2 Height 04/17/25 0400 187/89 -- -- 96 19 100 % -- 04/17/25 0359 -- -- -- 100 21 99 % -- 04/17/25 0335 -- -- -- 79 11 99 % -- 04/17/25 0330 171/83 -- -- 71 12 96 % -- 04/17/25 0302 -- -- -- 71 14 96 % -- 04/17/25 0300 (!) 165/95 -- -- 71 13 96 % -- 04/17/25 0250 -- -- -- 72 17 96 % -- 04/17/25 0230 170/81 -- -- 65 12 97 % -- 04/17/25 0206 -- -- -- 68 9 100 % -- 04/17/25 0200 152/77 -- -- 75 15 100 % -- 04/17/25 0145 -- -- -- -- -- 95 % -- 04/17/25 0135 -- -- -- -- 20 -- -- 04/17/25129 142/70 -- -- 66 -- 98 % -- 04/17/25 0102 -- -- -- -- -- 97 % -- 04/17/250 144/69 -- -- 72 -- -- -- 04/17/25 0052 146/67 -- -- 79 -- 97 % -- 04/17/25 0023 -- -- -- -- -- -- 1.727 m (5' 8 ) 04/17/25 0020 179/86 96 F (35.6 C) Tympanic 112 22 97 % -- Orders/Results: Orders Placed This Encounter CT ABDOMEN/PELVIS WITH CONTRAST PTT PROTIME-INR MAGNESIUM LACTATE, BLOOD CBC, EDIF, PLATELET COMPREHENSIVE METABOLIC PANEL HYDROmorphone (DILAUDID) injection 1 mg Ondansetron 4mg/2ml (ZOFRAN) injection 4 mg Sodium chloride 0.9% IV solution 1,000 mL potassium chloride 40 mEq in 0.9% sodium chloride 500 ml IVPB HYDROmorphone (DILAUDID) injection 1 mg iohexol (OMNIPAQUE) 350 MG/ML injection 75 mL Sodium chloride 0.9% IV solution 75 mL Prochlorperazine (COMPAZINE) injection 10 mg diphenhydrAMINE (BENADRYL) injection 12.5 mg Pantoprazole (PROTONIX) injection 40 mg potassium bicarbonate (EFFER-K) effervescent tablet 50 mEq HYDROmorphone (DILAUDID) injection 1 mg DISCONTD: Promethazine 25 MG tablet DISCONTD: Potassium chloride 20 MEQ Tab CR tablet Potassium chloride 20 MEQ Tab CR tablet Promethazine 25 MG tablet Results for orders placed or performed during the hospital encounter of 04/17/25 PTT Result Value Ref Range PTT 33.5 22.4 - 34.7 SEC PROTIME-INR Result Value Ref Range PT 12.7 11.8 - 14.4 SEC INR 0.95 0.85 - 1.10 MAGNESIUM Result Value Ref Range MAGNESIUM 1.7 1.6 - 2.3 MG/DL LACTATE, BLOOD Result Value Ref Range LACTATE 2.6 (HH) 0.7 - 2.0 mmol/L CBC, EDIF, PLATELET Result Value Ref Range WBC (WHITE BLOOD COUNT) 7.4 3.6 - 11.0 10*3/uL RBC 3.40 (L) 4.0 - 5.4 10*6/uL HEMOGLOBIN (HGB) 10.7 (L) 12.0 - 16.0 G/DL HEMATOCRIT (HCT) 31.7 (L) 36.0 - 48.0 % Mean Cell Volume 93.3 80.0 - 100.0 FL Mean Cell HGB 31.6 26.0 - 35.0 PG Mean Cell HGB Concentration 33.9 27.0 - 37.0 G/DL RBC Distribution 13.4 11.5 - 14.5 % PLATELET COUNT 462 (H) 130 - 400 10*3/uL Mean Platelet Volume 8.2 7.4 - 11.0 FL DIFFERENTIAL TYPE AUTO DIFF % NEUTROPHILS 58.1 37.0 - 75.0 % LYMPHOCYTE 26.9 20.0 - 55.0 % MONOCYTE % 11.0 (H) 0.0 - 10.0 % EOSINOPHIL % 3.7 0.0 - 11.0 % BASOPHIL % 0.3 0.0 - 2.0 % Absolute Neutrophil Count 4.3 1.4 - 6.5 10*3/uL LYMPHOCYTES, ABSOLUTE 2.0 1.2 - 3.4 10*3/uL MONOCYTES, ABSOLUTE 0.8 (H) 0.0 - 0.7 10*3/uL ABSOLUTE EOSINOPHIL COUNT 0.3 0.0 - 0.7 10*3/uL ABSOLUTE BASOPHIL COUNT 0.0 0.0 - 0.2 10*3/uL COMPREHENSIVE METABOLIC PANEL Result Value Ref Range Glucose 122 (H) 70 - 100 MG/DL BUN 7 7 - 20 mg/dL CREATININE SERUM 0.60 (L) 0.70 - 1.20 mg/dL SODIUM 140 137 - 145 MMOL/L Potassium 3.0 (L) 3.5 - 5.1 MMOL/L CHLORIDE 105 98 - 107 MMOL/L CALCIUM 9.5 8.4 - 10.2 mg/dL PROTEIN, TOTAL 6.6 6.3 - 8.2 g/dL Albumin 3.6 3.5 - 5.0 g/dL BILIRUBIN, TOTAL 0.8 0.2 - 1.3 mg/dL AST 24 14 - 36 U/L ALKALINE PHOSPHATASE 146 (H) 38 - 126 U/L CARBON DIOXIDE (CO2) 23 22 - 30 MMOL/L A/G Ratio 1.2 RATIO ALT 15 <35 U/L ESTIMATED GFR 109 ml/min/1.73sq.m GFR COMMENT Average GFR for 50-59 years old = 93. Radiographic Imaging CT ABDOMEN/PELVIS WITH CONTRAST Final Result IMPRESSION: 1. Moderate compact feces throughout. Possible constipation. 2. No acute findings or inflammatory change. 3. Prior gastric bypass. Procedures: Procedures Moderate Sedation Procedure: No ED Summary/MDM Medical Decision Making Amount and/or Complexity of Data Reviewed Labs: ordered. Radiology: ordered. Risk Prescription drug management. Risk Details: Vomiting resolved patient was able to tolerate oral potassium supplementation. She also received intravenous potassium replacement. She will need repeat metabolic panel next week. I gave her a prescription for Phenergan for her vomiting. She can follow up with Orthopedics for her postop appointment. Clinical Impression: 1. Nausea and vomiting, unspecified vomiting type 2. Acute post-operative pain 3. Hypokalemia No follow-ups on file. Discharge Medication List as of 04/17/2025 4:05 AM Discharge Medication List as of 04/17/2025 4:05 AM An After Visit Summary was printed and given to the patient with above information. . . [1] Past Medical History: Diagnosis Date Arthritis Asthma Depression GERD (gastroesophageal reflux disease) [2] Past Surgical History: Procedure Laterality Date ARTHROPLASTY KNEE TOTAL Left 04/07/2025 Laterality: Left; Surgeon: Joaquín Baez MD; Location: [facility] OR ASSISTANCE SURGICAL NAVIGATION MUSCULOSKELETAL IMAGELESX Left 04/07/2025 Laterality: Left; Surgeon: Joaquín Baez MD; Location: [facility] OR GASTRIC BYPASS 2014 BACK SURGERY 2000 laminectomy L4-5 TONSILLECTOMY [3] Allergies Allergen Reactions [place] Meal Anaphylaxis States she has EPI pen Peanut-Containing Drug Products Anaphylaxis Tree nuts Tramadol Anaphylaxis, Hives, Itching and Rash Other Reaction(s): Intolerance Heart racing Gramineae Pollens Itching ragweed Jigar Reynolds MD 04/17/25 0630 documented in this [facility]10-18-2025 Physician Emergency department Note* Jigar Reynolds MD - 04/17/2025 12:39 AM EDT Emergency Department Report [facility] EMERGENCY DEPARTMENT Service Date:.04/17/25 PCP: Jimmie Garcia Chief Complaint: Chief Complaint Patient presents with Post-Op Problem Left knee replaced on Saturday. Now vomiting for a couple days and got worse today. Pain in left knee 04/09. HPI Sakshi Hightower is a 60 y.o. female presents to the ED today due to vomiting. Patient states that she had physical therapy which markedly exacerbated her knee pain after her surgery. She alsostarted vomiting after the pain started. She has been unable to keep her pain medication down. Currently she states the pain is 10/10. She has a mild abdominal discomfort in his still very nauseous. Review of Systems: Review of Systems Constitutional: Negative for fever. Gastrointestinal: Negative for diarrhea. Past Medical History: Past Medical History[1] Past Surgical History: Past Surgical History[2] Allergies: Allergies[3] Medications: Discharge Medication List as of 04/17/2025 4:05 AM CONTINUE these medications which have CHANGED Details Potassium chloride 20 MEQ Tab CR tablet Take 1 tablet by mouth 2 times daily with meals for 3 days.Normal Disp-6 tablet, R-0 Promethazine 25 MG tablet Take 1 tablet by mouth every 6 hours as needed (Nausea/Vomiting). Normal Disp-10 tablet, R-1 CONTINUE these medications which have NOT CHANGED Details acetaminophen 325 MG Suppository Insert 1 suppository rectally every 4 hours as needed for Mild Pain. Historical MedPaused since 04/07/2025. Resumes on 05/08/2025. Acetaminophen 325 MG tablet Take 2 tablets by mouth every 4 hours as needed for Mild Pain. Normal Disp-50 tablet, R-1 Albuterol 108 (90 Base) MCG/ACT Aero Soln inhaler Inhale 2 puffs. Historical Med apixaban (Eliquis) 2.5 MG tablet Take 1 tablet by mouth every 12 hours. Normal Disp-70 tablet, R-0 Cholecalciferol (Vitamin D3) 1.25 MG (75193 UT) capsule Take 1 capsule by mouth once a week. Historical Med Docusate 100 MG capsule Take 1 capsule by mouth 2 times daily. Normal Disp-60 capsule, R-0 EPINEPHrine 0.3 MG/0.3ML Solution Auto-injector injection Inject 0.3 mL intramuscularly. HistoricalMedFor patients >/= 30 kg. escitalopram 20 MG tablet Take 1 tablet by mouth daily every morning. Historical Med !! HERBAL PRODUCT Replace this text with the name of the herbal product Historical Med !! HERBAL PRODUCT daily. Replace this text with the name of the herbal product Historical Med LORazepam 0.5 MG tablet Take 1 tablet by mouth 2 times daily as needed for Anxiety. Historical Med Misc Natural Products (TURMERIC, CURCUMIN, PO) Take by mouth daily. Historical Med Multiple Vitamin (Multivitamin Adult) tablet Take 1 tablet by mouth daily. Normal Disp-30 tablet, R-0 naloxone 4 MG/0.1ML 1 spray by Nasal route once for 1 dose. [place] into the nose as directed. Call 911. If no response in 2 minutes use a new nasal spray in other nostril. Repeat until help arrives. Normal Disp-1 Each, R-0 omeprazole [address] capsule Take 1 capsule by mouth daily. Normal Disp-30 capsule, R-0 Ondansetron 8 MG Tab Dispersible tablet Take 1 tablet by mouth Every 8 hours as needed. Historical Med oxyCODONE 5 MG tablet 5-10 mg every 6 hours as needed for moderate to severe pain Ween as toleratedNormal Disp-30 tablet, R-0Prescribe no greater than 7 days (adult) or 5 days (minor) for acute painunless justification documented in chart Pantoprazole [address] tablet DR Take 1 tablet by mouth. Historical Med Pregabalin 50 MG capsule Take 1 capsule by mouth 3 times daily. Historical Med Semaglutide,0.25 or 0.5MG/DOS, 2 MG/3ML Solution Pen-injector Inject under the skin once a week. Historical Med tiZANidine 4 MG tablet Take 1 tablet by mouth every 8 hours as needed for Muscle spasms. HistoricalMed !! - Potential duplicate medications found. Please discuss with provider. Family History: Family History Problem Relation Age of Onset Dementia Mother Social History: Social History Socioeconomic History Marital status: Spouse name: Not on file Number of children: Not on file Years of education: Not on file Highest education level: Not on file Occupational History Not on file Tobacco Use Smoking status: Former Types: Cigarettes Smokeless tobacco: Never Tobacco comments: Quit 10 years ago Vaping Use Vaping status: Never Used Substance and Sexual Activity Alcohol use: Yes Comment: occassional Drug use: Not Currently Comment: gummies with THC last taken 2 months Sexual activity: Not on file Other Topics Concern Not on file Social History Narrative Not on file Social Drivers of Health Financial Resource Strain: Not on file Food Insecurity: No Food Insecurity (04/05/2025) Received from [facility] Hunger Screening Within the past 12 months we worried whether our food would run out before we got money to buy more.: Never True Within the past 12 months the food we bought just didn't last and we didn't have money to get more.: Never True Transportation Needs: No Transportation Needs (03/15/2025) Received from [employer] PRAPARE - Transportation Lack of Transportation (Medical): No Lack of Transportation (Non-Medical): No Physical Activity: Insufficiently Active (08/31/2024) [facility] Exercise Vital Sign On average, how many days per week do you engage in moderate to strenuous exercise (like a brisk walk)?: 3 days On average, how many minutes do you engage in exercise at this level?: 20 min Stress: Not on file Social Connections: Not on file Personal Safety: Not on file Housing Stability: Low Risk (10/15/2023) Received from [facility] [employer] Housing Instability Are you worried or concerned that in the next two months you may not have stable housing that you own, rent or stay in as a part of a household?: No Physical Exam: Physical Exam Vitals and nursing note reviewed. Constitutional: Appearance: Normal appearance. She is not toxic-appearing or diaphoretic. HENT: Head: Normocephalic and atraumatic. Mouth/Throat: Pharynx: Oropharynx is clear. Cardiovascular: Rate and Rhythm: Normal rate and regular rhythm. Pulses: Normal pulses. Heart sounds: Normal heart sounds. Pulmonary: Effort: Pulmonary effort is normal. Breath sounds: Normal breath sounds. Abdominal: General: Bowel sounds are normal. Palpations: Abdomen is soft. Tenderness: There is abdominal tenderness. Musculoskeletal: General: No deformity. Skin: General: Skin is warm. Neurological: General: No focal deficit present. Mental Status: She is alert and oriented to person, place, and time. Psychiatric: Mood and Affect: Mood normal. Behavior: Behavior normal. Vital Signs During ED Visit Patient Vitals for the past 24 hrs: BP Temp Temp src Pulse Resp SpO2 Height 04/17/25 0400 187/89 -- -- 96 19 100 % -- 04/17/25 0359 -- -- -- 100 21 99 % -- 04/17/25 0335 -- -- -- 79 11 99 % -- 04/17/25 0330 171/83 -- -- 71 12 96 % -- 04/17/25 0302 -- -- -- 71 14 96 % -- 04/17/25 0300 (!) 165/95 -- -- 71 13 96 % -- 04/17/25 0250 -- -- -- 72 17 96 % -- 04/17/25 0230 170/81 -- -- 65 12 97 % -- 04/17/25 0206 -- -- -- 68 9 100 % -- 04/17/25 0200 152/77 -- -- 75 15 100 % -- 04/17/25 0145 -- -- -- -- -- 95 % -- 04/17/25 0135 -- -- -- -- 20 -- -- 04/17/25 013 142/70 -- -- 66 -- 98 % -- 04/17/25 0102 -- -- -- -- -- 97 % -- 04/17/2599 144/69 -- -- 72 -- -- -- 04/17/25 0052 146/67 -- -- 79 -- 97 % -- 04/17/25 0023 -- -- -- -- -- -- 1.727 m (5' 8 ) 04/17/25 0020 179/86 96 F (35.6 C) Tympanic 112 22 97 % -- Orders/Results: Orders Placed This Encounter CT ABDOMEN/PELVIS WITH CONTRAST PTT PROTIME-INR MAGNESIUM LACTATE, BLOOD CBC, EDIF, PLATELET COMPREHENSIVE METABOLIC PANEL HYDROmorphone (DILAUDID) injection 1 mg Ondansetron 4mg/2ml (ZOFRAN) injection 4 mg Sodium chloride 0.9% IV solution 1,000 mL potassium chloride 40 mEq in 0.9% sodium chloride 500 ml IVPB HYDROmorphone (DILAUDID) injection 1 mg iohexol (OMNIPAQUE) 350 MG/ML injection 75 mL Sodium chloride 0.9% IV solution 75 mL Prochlorperazine (COMPAZINE) injection 10 mg diphenhydrAMINE (BENADRYL) injection 12.5 mg Pantoprazole (PROTONIX) injection 40 mg potassium bicarbonate (EFFER-K) effervescent tablet 50 mEq HYDROmorphone (DILAUDID) injection 1 mg DISCONTD: Promethazine 25 MG tablet DISCONTD: Potassium chloride 20 MEQ Tab CR tablet Potassium chloride 20 MEQ Tab CR tablet Promethazine 25 MG tablet Results for orders placed or performed during the hospital encounter of 04/17/25 PTT Result Value Ref Range PTT 33.5 22.4 - 34.7 SEC PROTIME-INR Result Value Ref Range PT 12.7 11.8 - 14.4 SEC INR 0.95 0.85 - 1.10 MAGNESIUM Result Value Ref Range MAGNESIUM 1.7 1.6 - 2.3 MG/DL LACTATE, BLOOD Result Value Ref Range LACTATE 2.6 (HH) 0.7 - 2.0 mmol/L CBC, EDIF, PLATELET Result Value Ref Range WBC (WHITE BLOOD COUNT) 7.4 3.6 - 11.0 10*3/uL RBC 3.40 (L) 4.0 - 5.4 10*6/uL HEMOGLOBIN (HGB) 10.7 (L) 12.0 - 16.0 G/DL HEMATOCRIT (HCT) 31.7 (L) 36.0 - 48.0 % Mean Cell Volume 93.3 80.0 - 100.0 FL Mean Cell HGB 31.6 26.0 - 35.0 PG Mean Cell HGB Concentration 33.9 27.0 - 37.0 G/DL RBC Distribution 13.4 11.5 - 14.5 % PLATELET COUNT 462 (H) 130 - 400 10*3/uL Mean Platelet Volume 8.2 7.4 - 11.0 FL DIFFERENTIAL TYPE AUTO DIFF % NEUTROPHILS 58.1 37.0 - 75.0 % LYMPHOCYTE 26.9 20.0 - 55.0 % MONOCYTE % 11.0 (H) 0.0 - 10.0 % EOSINOPHIL % 3.7 0.0 - 11.0 % BASOPHIL % 0.3 0.0 - 2.0 % Absolute Neutrophil Count 4.3 1.4 - 6.5 10*3/uL LYMPHOCYTES, ABSOLUTE 2.0 1.2 - 3.4 10*3/uL MONOCYTES, ABSOLUTE 0.8 (H) 0.0 - 0.7 10*3/uL ABSOLUTE EOSINOPHIL COUNT 0.3 0.0 - 0.7 10*3/uL ABSOLUTE BASOPHIL COUNT 0.0 0.0 - 0.2 10*3/uL COMPREHENSIVE METABOLIC PANEL Result Value Ref Range Glucose 122 (H) 70 - 100 MG/DL BUN 7 7 - 20 mg/dL CREATININE SERUM 0.60 (L) 0.70 - 1.20 mg/dL SODIUM 140 137 - 145 MMOL/L Potassium 3.0 (L) 3.5 - 5.1 MMOL/L CHLORIDE 105 98 - 107 MMOL/L CALCIUM 9.5 8.4 - 10.2 mg/dL PROTEIN, TOTAL 6.6 6.3 - 8.2 g/dL Albumin 3.6 3.5 - 5.0 g/dL BILIRUBIN, TOTAL 0.8 0.2 - 1.3 mg/dL AST 24 14 - 36 U/L ALKALINE PHOSPHATASE 146 (H) 38 - 126 U/L CARBON DIOXIDE (CO2) 23 22 - 30 MMOL/L A/G Ratio 1.2 RATIO ALT 15 <35 U/L ESTIMATED GFR 109 ml/min/1.73sq.m GFR COMMENT Average GFR for 50-59 years old = 93. Radiographic Imaging CT ABDOMEN/PELVIS WITH CONTRAST Final Result IMPRESSION: 1. Moderate compact feces throughout. Possible constipation. 2. No acute findings or inflammatory change. 3. Prior gastric bypass. Procedures: Procedures Moderate Sedation Procedure: No ED Summary/MDM Medical Decision Making Amount and/or Complexity of Data Reviewed Labs: ordered. Radiology: ordered. Risk Prescription drug management. Risk Details: Vomiting resolved patient was able to tolerate oral potassium supplementation. She also received intravenous potassium replacement. She will need repeat metabolic panel next week. I gave her a prescription for Phenergan for her vomiting. She can follow up with Orthopedics for her postop appointment. Clinical Impression: 1. Nausea and vomiting, unspecified vomiting type 2. Acute post-operative pain 3. Hypokalemia No follow-ups on file. Discharge Medication List as of 04/17/2025 4:05 AM Discharge Medication List as of 04/17/2025 4:05 AM An After Visit Summary was printed and given to the patient with above information. . . [1] Past Medical History: Diagnosis Date Arthritis Asthma Depression GERD (gastroesophageal reflux disease) [2] Past Surgical History: Procedure Laterality Date ARTHROPLASTY KNEE TOTAL Left 04/07/2025 Laterality: Left; Surgeon: Joaquín Baez MD; Location: [facility] OR ASSISTANCE SURGICAL NAVIGATION MUSCULOSKELETAL IMAGELESX Left 04/07/2025 Laterality: Left; Surgeon: Joaquín Baez MD; Location: [facility] OR GASTRIC BYPASS 2014 BACK SURGERY 1999 laminectomy L4-5 TONSILLECTOMY [3] Allergies Allergen Reactions [facility] Meal Anaphylaxis States she has EPI pen Peanut-Containing Drug Products Anaphylaxis Tree nuts Tramadol Anaphylaxis, Hives, Itching and Rash Other Reaction(s): Intolerance Heart racing Gramineae Pollens Itching ragweed Jigar Reynolds MD 04/17/2530 [facility]10-08-2025 Miscellaneous Notes* Nursing Notes - Gayle Osorio RN - 04/07/2025 6:46 PM EDT Message sent to Dr. Valentin STORAGE BATTERY CHARGER's regarding hemovac leaking air, yet still pulling some drainage through tubing and into canister. Connections checked. New canister applied. No success. Hemovac discontinued per SB STORAGE BATTERY CHARGER verbal Order. * Nursing Notes - Gayle Osorio RN - 04/07/2025 6:21 PM EDT Written and verbal discharge instructions reviewed by SB RN. Daughter at bedside. Understanding voiced. Questions encouraged and answered. * Nursing Notes - Gayle Osorio RN - 04/07/2025 3:18 PM EDT Assisted out of recliner chair with 2 assist. Gait belt on standby assist to restroom with walker. Tolerated well. * Nursing Notes - Gayle Osorio RN - 04/07/2025 1:00 PM EDT Lunch tray ordered. * Nursing Notes - Shari Hogan RN - 04/07/2025 7:15 AM EDT Patient ambulated to the bathroom with nursing staff * Nursing Notes - Sahri Hogan RN - 04/07/2025 7:08 AM EDT Patient measured for Thigh High JAMIE Hose. Measurements are the following: Widest circumference of upper thigh 23.5in Widest circumference of calf 14in Length of leg from gluteal furrow to base of heel 36in Size of JAMIE hose provided: Large long thigh high Medium knee high Explained to patient JAMIE Hose reduce the risk of blood clots and swelling. Informed patient JAMIE Hose will be worn on bilateral lower extremities for 30 days post-op, they can remove their JAMIE hose for 1 hour for every 8 hours that they wear them, and they will be discharged with 2 pairs of JAMIE hose. * Nursing Notes - Shari Vazquez RN - 02/25/2025 9:29 AM EDT 02/25/25 0922 Referral Information Arrived From home or self-care Information Source Information Source patient ;child (daughter Alpa) Contact Information This Cooperative Extension Agent is Primary Showcase Maker/SW Yes Showcase Maker Name Shari Vazquez RNbundler seasonal greenery's Living Environment Lives With alone (daughter to have pt stay with her postop) Living Arrangement and Set Up house (both her home and her daughter's home are one level, one step to enter) Provides Primary Care For no one Primary Care Provided By self Support System Immediate family;Extended family;Friends Able to Return to Prior Arrangements other (see comments) (going to her daughter's home - [address] [place]) Functional Status Patient's Functional Status Prior To This Admission? Independent Concerns With Patient Being Able To Care For Themselves At Discharge? Has Assistance (Friend, Family, Skilled Provider) Employment/Financial Employed? 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 Patient states the plan is to discharge to her daughter's home with family/friends assistance, [facility] requested and then OP therapy with [facility] in [place]. Patient has a wheeled walker. Patient denies any other questions or needs at this time. CM to continue to follow and assist with discharge plans. [facility] Note* Nursing Notes - Gayle Osorio RN - 04/07/2025 6:46 PM EDT Message sent to Dr. Valentin STORAGE BATTERY CHARGER's regarding hemovac leaking air, yet still pulling some drainage through tubing and into canister. Connections checked. New canister applied. No success. Hemovac discontinued per SB STORAGE BATTERY CHARGER verbal Order. [facility]10-08-[facility]25 Nurse Note* Nursing Notes - Gayle Osorio RN - 04/07/2025 6:21 PM EDT Written and verbal discharge instructions reviewed by SB RN. Daughter at bedside. Understanding voiced. Questions encouraged and answered. [facility]10-08-2025 Hospital Discharge instructions* Discharge Instructions* Aliya Leong RN - 04/07/2025 5:24 PM EDT Images from the original note were not included. Diet: Resume diet tolerated. Gel Ice Packs > Change every 4 hours or as needed for swelling and pain for at least the first 2 weeks You will be discharged with six ice gel packs, and one ice gel compression wrap. Jamie Hose: > Help reduce the risk of blood clots and decrease swelling > To be worn bilaterally to the lower extremities for 30 days post-op > Patients can take their jamie hose off for 1 hour for every 8 hours that they wear them You will be discharged with two pairs of JAMIE hose. Dressings: Your incision is closed with Dermabond, this is a skin glue that will come off in time. You may shower with this after 48 hours, provided that if you had a drain, it has been removed. However, do NOTsaturate or submerge your extremity in water (i.e. Bathtub, hot tub, etc.) until cleared by the provider at your follow up appointment. At one-week post op you may begin directly washing the incision. To prevent cross contamination with other parts of the body, we advise to do this with separate clean cotton wash cloth and Dial antibacterial soap. Please do not scrub the incision, simply make 3-4one directional passes down it. Rinse it well. Pat your incision dry, do not rub your incision witha towel. Do not place any lotions, ointments, creams or powder on your incision or operative leg until cleared by the provider. Do not pick at the glue. Apply a new ABD pad daily and after showering.As a reminder do not place any tape over your ABD pad. Your jamie hose are to hold your pad in place. When to call us: If you have any concerns regarding your incision, please contact the office immediately. This includes areas of redness, drainage, or concerns for opening in the incision. You will be discharged with a box of 25 ABD pads. DRAINS When you go home after surgery, you may have one or more drains in place to help your wounds heal. Hemovac, Vijay Smith(COLTON) and Ronal are common drains used for wounds. The drain has a squeezable container connected to flexible tubing. The tubing is put into an area near your surgical incision. It is held in place by stitches. When the drain is pressed flat, a gentle suction helps remove fluid from the wound. Your doctor will tell you when your drain can be removed. Wound Drainage Systems Taking Care of Your Drain(s) You will need to empty the drain and record the drainage amount on your wound drainage record sheet. Bring this record sheet to every appointment with your surgeon. What does normal drainage look like? After surgery, the color and consistency of your drainage may change in the following way: It is normal for your drainage to be a little bloody in the morning or when you move around and then return to a clear red or pink color the rest of the day. Call your surgeon s office and report if: The drainage color changed from a light color and has become bloody or bright red in color. The drainage smell has changed. The drainage has pus. How to Empty Your Drain You will need to empty the drain every 4 hours while awake and record the drainage amount on your wound drainage record sheet below. Date Time Drainage amount (ML or CC) Follow these steps to empty your drain: Wash your hands well with soap and warm water. Rinse and dry. Get a measuring cup and your Wound Drainage Record Sheet. Use a record sheet to write down the amount and color of fluid from the drain. You can use the record sheet at the end of this handout or make your own. Unfasten the pin or clip that holds the drain to your clothing. Open the plug on the drain. Turn the drain upside down over the measuring cup and gently squeeze the drain to empty it. Continue to squeeze the drain. Press down on the drain until it is flat and replace the plug. All of the air needs to be out of the drain or it will not work properly. If you are not able to squeeze and plug the drain at the same time, it may help to put the drain rj firm flat surface like a table. Do not let the drain dangle. Carefully pin or clip the drain to your clothing. Attach the drain lower than the area where it comes out of your body. Make sure the tubing lies flat with no kinks. Check the amount and color of the fluid in the measuring cup. Call your doctor if the fluid is cloudy, smells bad or the amount of fluid has increased. Write the date, time, amount and color of the fluid on the wound drainage record sheet. If you havemore than one drain, empty, measure and write down the amount of fluid for each drain. Empty the fluid into the toilet, rinse the measuring cup and flush the toilet. If you have more than one drain, repeat steps 3 to 10. Wash your hands well with soap and warm water. Rinse and dry When to call the doctor? Call your doctor right away if you have any of the following: Fever of 100.4 degrees Fahrenheit (38 degrees Celsius) or higher Redness, swelling, or unusual drainage where the tube comes out of the skin Drainage that becomes milky, cloudy or smells bad A sudden increase in the amount of drainage Any new or increased pain Little or no drainage in the drain and fluid is leaking where the tube comes out of your skin Your drain will not stay pressed together after you have emptied it The drain tubing pulls out of your skin Drain removal: Please call Dr Baez's nurse ([phone]) the morning after discharge with the recorded amount of drainage from your hemovac. The nurse will give you further instructions regarding when your drainshould be removed. ON Q PAIN RELIEF SYSTEM You have been provided with an educational handout about your On-Q Pain Relief System. Things to remember: 1.) The ball is NOT filled with narcotics. It is filled with numbing medication called Ropivacaine which is simply numbing the nerves around the knee. 2.) Your ON Q pump is set at 2 ml per hour. As your initial nerve block wears off, you can increaseyour ON-Q to 4 to 6ml per hour for pain control. For severe pain you may increase to 8ml per hour or higher for 1 hour, then turn your ON Q back down to 4 to 6 ml per hour. 3.) Pump MUST be in black irving pack and worn around the neck, shoulder, or abdomen during therapy or ambulation. This is to ensure that pump doesn't fall and dislodge the catheter. 4.) Do NOT squeeze the ball. 5.) Leaking at the catheter site is normal. Do not be alarmed; just use a paper towel or dry wash cloth to absorb the fluid. 6.) You may shower while the On-Q dressing is in place, but should turn away from the shower streamto avoid saturation to your dressing. While showering, the On-Q ball should be hung out of the way for ease, for example, use the clip on the irving pack to hang on a shower bar or curtain kevin. 7.) Do not drive 8.) Follow the instructions to remove your ON-Q ball on the ON-Q Catheter Removal Sheet . Once catheter is removed, place a band aid over the incision site. Remove the On-Q ball 7 days after discharge, or when it is empty. 9.) Once the catheter is removed it is NOT reusable, throw the ball away in the trash. As a patient you may be concerned about receiving too much local anesthetic medication; however, the pump has been preset specifically for you. It is unlikely that you will receive too much medicine from the pump. However, if you were to get too much medication it might cause ringing in your ears, blurred vision, mouth or tongue numbness, ora metallic taste. You might feel nervous or confused. If you experience any of these symptoms, clamp the tubing and call the number provided below. If you have questions or concerns call the 24 Hour Product Support Hotline at DICK wrap: Should you have any drainage to the incision, ONQ, or hemovac dressing that is concerning, the providers would typically suggest a pressure dressing to the site. This is done with ABD pads and a wrap. You have been sent home with an DICK bandage to have on hand in case that occurs. If you do apply apressure dressing, please call the office/therapeutic recreation director provider so that they can direct you what to do from there. Ambulation > Weight bearing status as tolerated with a walker then progress to a cane if stable, unless noted otherwise by the physician or therapist. If you have a specific weight bearing limitation such as non-weight bearing, touch down or partial please take note: This weight bearing status must be followed until instructed otherwise on your 3 week follow-up visit in Dr Baez's office. For Knee Replacements: > Physical therapy 3 times per week for 6 full weeks > Maintain uninterrupted therapy if transitioning from home therapy to out patient therapy > No therabands over your wound/incision > Patients should be doing home exercises on days they are not working with a therapist > Do not rest with a pillow under the knee, work on flexion and extension exercises to improve range of motion Medications: > Patients will be sent home with prescriptions, including medication for pain to be taken as directed. Stay ahead and do not allow your pain to get out of control. > If prescribed Aspirin, take twice a day for 30 days. Do not skip a dose, this is your medication for the prevention of blood clots. > If you have not had a bowel movement by your 3rd post-operative day you will need to use a gentle over the counter laxative such as Milk of magnesia, Fiberlax, Miralax, etc. Bowels need to move within 3 days or take action. Pain Medication Administration Record Date Time Pain Level Medication Dose Frequency Next Dose Available The morning after your discharge Dr. Valentin office will contact you to follow up with how your recovery is progressing at home. Dr. Baez's office number is [phone], option #2 for the nurse. We want to hear from you if you are having any concerns related to the surgery. If after hours, please be assured that we are still available to you! Simply contact the [facility] hospital number, and ask for Dr. Baez's on-call provider. You will be in touch with a provider within 30 minutes. Common reasons to contact us: > Redness, drainage or swelling at the incision site that is out of the ordinary from post-operative findings. Minor redness, bruising, swelling and warmth around the entire joint are common post-operatively. Some scant/scattered drainage can be normal as well. If it is persistent, or greater than the size of a dime, call us. >If applicable to your surgery, please contact us at any time if there is a concern with the drain or ONQ pump. This includes any concerning bleeding around the site, disconnection of the tubing, malfunctioning of the drain or pump, concern for drain appearance, etc. Please also alert us to any problems with drain removal or concerns post-removal, including inability to remove or continued drainage after removal. >If you had a total knee replacement and your ROM is < 90 degrees upon admission to home health or at any time during recovery period (unless specifically limited per the providers). > Any falls or injuries > Patient non-compliance with assistive devices during gait > Fever that is > 101 degrees. For low grade fevers use Incentive Spirometry @ 10 puffs per hour and Tylenol as directed Anesthesia Precautions & Expectations: After anesthesia, rest for [address], drink alcoholic beverages or make any important decisions during this time. General anesthesia may cause a sore throat, jaw discomfort or muscle aches. These symptoms can last for one or two days. Please refer to your green folder for your discharge instructions. If at any time you feel you havean emergency please dial 911 or have [address] you to your closest ER. [facility] Nurse Note* Nursing Notes - Gayle Osorio RN - 04/07/2025 3:18 PM EDT Assisted out of recliner chair with 2 assist. Gait belt on standby assist to restroom with walker. Tolerated well. [facility] [id number] History of Present illness Narrative* Ana Gautam OT - 04/07/2025 1:08 PM EDT Occupational Therapy Inpatient Initial Assessment Date: 04/07/25 Time in: 1308 Time out: 1407 Total treatment time: 59 Diagnosis: osteoarthritis of knee Surgery: left TKA with onQ and hemovac Past Medical History: Past Medical History[1] Past Surgical History: Past Surgical History[2] Precautions: fall, WBAT Subjective: patient is awake in bed agreeable to session Orientation: x4, alert, following directions, intact safety awareness Pain: 01/07 Pre-Admission Living Environment: Patient lives: alone Home environment: 1 story house Steps in home: 0 Steps to enter home: 1 Shower type/location: tub shower with grab bars Pre-Admission Functional Status: Equipment in Home: shower chair, raised toilet seat, walker, hand held shower head Prior level ADL function: Toileting: independent Bathing: independent Upper body dressing: independent Lower body dressing: independent Grooming: independent Current Functional Status: ROM: UE WFL Strength: UE WFL Bed Mobility: SBA Transfers: CGA Gait: CGA utilizing front wheeled walker Balance: fair Sensation: intact ADLS: Toileting: not completed Bathing: not completed Upper body dressing: independent in sitting Lower body dressing: SBA in sitting and standing Grooming: not completed OT Treatment Provided: OT evaluation and self care training Education: patient instructed on LB dressing techniques donning underwear and shorts CGA in sittingand standing with training for onQ and hemovac management. Patient instructed on sock and JAMIE hose management, patient JAMIE hose on left side is cutting into her leg, re-measure and provide a different length with some improvement, provide education on placing over ice pack and positioning on thigh to prevent the some restriction on her thigh. Patient doff sock and JAMIE hose SBA, provide instruction on JAMIE hose wearing schedule and hygiene. Patient odalis JAMIE hose and sock with SBA. Review walker positioning during toilet tasks and hygiene standing at bathroom sink. Review sequencing and safety when completing tub shower transfer using shower chair or grab bars. Patient reports understanding. Patient instructed on being able to shower with this after 48 hours, provided that the drain, it has been removed. do NOT saturate or submerge in water until cleared by the provider at follow up appointment. At one-week post op patient instructed that they may begin directly washing the incision. Recommend using a separate clean cotton wash cloth and Dial antibacterial soap. Instructed to not scrub the incision, make 3-4 one directional passes down it. Rinse it well. Pat incision dry, not rubbing with a towel. No lotions, ointments, creams or powder on the incision or operative leg until cleared by the provider. Instruction to apply a new ABD pad after showering or sponge bathing. Assessment: patient presents s/p left TKA completed today. Patient is alert and following directions. Patient demonstrates good safety awareness during functional mobility and transfer training following initial instruction. Pt will be discharging to [facility] for 2-3 weeks and family can assist as needed. Discharge Recommendations: home Equipment Recommendations at Discharge: none OT Frequency: 7 times per week OT Interventions: ADL retraining, balance and transfer training Rehab Potential: good Plan for next treatment: continue with bathing, dressing, bathroom transfers and hygiene training if patient isn't discharged today. Otherwise she has completed OT sessions needed to leave today Occupational Therapy Goals: 1. Pt will complete LB dressing MOD I 2. Pt will complete sponge bathing MOD I 3. Pt will complete toileting MOD I 4. Pt will complete hygiene/grooming standing at sink independent 5. Pt will complete simulated tub shower transfer SBA [1] Past Medical History: Diagnosis Date Arthritis Asthma Depression GERD (gastroesophageal reflux disease) [2] Past Surgical History: Procedure Laterality Date GASTRIC BYPASS 2014 BACK SURGERY 1999 laminectomy L4-5 TONSILLECTOMY * Steff Almonte, PT - 04/07/2025 12:56 PM EDT Physical Therapy Inpatient Initial Assessment Date: 04/07/25 Time in: 12:56 Time out: 13:30 Total treatment time: 34 Diagnosis: OA of the L knee Surgery: L TKA with on-q and hemovac Past Medical History: Past Medical History[1] Past Surgical History: Past Surgical History[2] Precautions: Fall, WBAT on the L LE Pre-Admission Living Environment: Patient lives: alone Home environment: one level home Steps in home: 0 Steps to enter home: 4 with rail Pt will be going to stay with her daughter following surgery. Pt's daughter has a one level home with 4 MARIA L with rail Pre-Admission Functional Status: Independent with mobility Equipment in Home: FWW, cane Subjective: Pt is doing well post op and was agreeable to PT evaluation Pain: 7/10, L knee Orientation: Oriented x4, alert, follows commands well, safety awareness intact Current Functional Status: ROM: L knee ROM 0-102 degrees Strength: L knee 4/5 Bed Mobility: SBA Transfers: CGA using FWW Gait: CGA using FWW, 50ft Balance: Seated: Good Standing: Fair- Sensation: WFL PT Treatment Provided: Pt performed glut sets, quad sets, heel slides, SAQ, SLR, and ankle pumps x10 on operative side. Pt educated on sequencing for transfers and gait using FWW, and on heel-toe gait pattern. Pt using a step to pattern due to pain and required minimal cues for mechanics. Followingsession pt was left sitting in the recliner with call grijalva within reach, chair locked and OT present . Assessment: Pt is a(n) 60 y.o. female s/p L TKA with on-q and hemovac. Pt is doing well post op with moderate complaints of pain. Pt has decreased strength and ROM in the L knee with a firm end feel into flexion. Pt is ambulating well but does require cues for mechanics. Pt is expected to continue to improve and should be safe to return home. Discharge Recommendations: Pt to return home with PT services. Equipment Recommendations at Discharge: none PT Frequency: PT Therapy Frequency: BID (twice a day) PT Interventions: Balance, bed mobility, endurance, gait, joint mobilizations, ROM, strengthening, stretching, transfers Rehab Potential: Good Plan for next treatment: Next visit progress mobility and ROM, practice car transfers and steps, and review/perform HEP. Physical Therapy Goals: 1. Patient will perform all transfers with mod I to ensure safety at discharge. 2. Pt will ambulate 200 ft with FWW and mod I to ensure safety with household ambulation. 3. Pt will increase surgical knee ROM to 0-110 degrees. 4. Pt will perform a modified car transfer with SB assist to ensure patient will be safe when leaving home. 5. Pt will ambulate up and down 4 steps with rail and SB assist to ensure safety in and out of home. 6. Pt will be independent with HEP per total joint binder in order to continue with ROM progressionat home. 7. Pt will demonstrate understanding of proper procedures for edema control. [1] Past Medical History: Diagnosis Date Arthritis Asthma Depression GERD (gastroesophageal reflux disease) [2] Past Surgical History: Procedure Laterality Date GASTRIC BYPASS 2014 BACK SURGERY 1999 laminectomy L4-5 TONSILLECTOMY * Sameer Wilburn PA-C - 04/07/2025 11:51 AM EDT Patient is expected to have moderate to severe pain for 3-6 weeks and will be prescribed narcotics in quantity to last for 1 week if taking at the max dose. We have counseled on the use and de-escalation of narcotics. This has been reviewed with and is in accordance with Dr. Baez's prescribing practice. documented in this encounterColorado [facility] HospitalPhigital [facility] [id number] Nurse Note* Nursing Notes - Gayle Osorio RN - 04/07/2025 1:00 PM EDT Lunch tray ordered. [facility] HospitalMojoPages [id number] Nurse Note* Madai Arroyo RN - 04/07/2025 12:05 PM EDT Left adductor canal nerve block complete at this time. Pt is in stable condition and denies any numbness around lips, ringing in ears, or metallic taste in mouth. Pt now lying on back and awake. Pt able to answer questions appropriately. Fiona VALLES finishing with dressing. No complaints at this time. * Madai Arroyo RN - 04/07/2025 11:58 AM EDT Left adductor canal nerve block started at this time by Fiona VALLES. Pt is in stable condition at this time. Fiona VALLES is cleaning block site. Pt is lying on back with left thigh exposed. Pt still able to answer questions. No other complaints at this time. * Violeta Mart RN - 04/07/2025 11:40 AM EDT Patient transported to PACU with Fiona VALLES and RN neck band maker. Reports given to Vanessa DE at 1140H. * Violeta Mart RN - 04/07/2025 10:24 AM EDT OR 4 Temperature 66.1F Humidity 42.5% documented in this encounterColorado Acute Long Term HospitalPhigital [facility] [id number] Nurse Surgical operation note* Madai Arroyo RN - 04/07/2025 12:05 PM EDT Left adductor canal nerve block complete at this time. Pt is in stable condition and denies any numbness around lips, ringing in ears, or metallic taste in mouth. Pt now lying on back and awake. Pt able to answer questions appropriately. Fiona VALLES finishing with dressing. No complaints at this time. [facility] [id number] Nurse Surgical operation note* Madai Arroyo RN - 04/07/2025 11:58 AM EDT Left adductor canal nerve block started at this time by Fiona VALLES. Pt is in stable condition at this time. Fiona VALLES is cleaning block site. Pt is lying on back with left thigh exposed. Pt still able to answer questions. No other complaints at this time. [facility]10-08-2025 Nurse Surgical operation note* Violeta Mart RN - 04/07/2025 11:40 AM EDT Patient transported to PACU with Fiona VALLES and RN neck band maker. Reports given to Vanessa DE at 1140H. [facility]10-08-2025 Nurse Surgical operation note* Violeta Mart RN - 04/07/2025 10:24 AM EDT OR 4 Temperature 66.1F Humidity 42.5% [facility]10-08-2025 Nurse Note* Nursing Notes - Shari Hogan RN - 04/07/2025 7:15 AM EDT Patient ambulated to the bathroom with nursing staff [facility]10-08-2025 Nurse Note* Nursing Notes - Shari Hogan RN - 04/07/2025 7:08 AM EDT Patient measured for Thigh High JAMIE Hose. Measurements are the following: Widest circumference of upper thigh 23.5in Widest circumference of calf 14in Length of leg from gluteal furrow to base of heel 36in Size of JAMIE hose provided: Large long thigh high Medium knee high Explained to patient JAMIE Hose reduce the risk of blood clots and swelling. Informed patient JAMIE Hose will be worn on bilateral lower extremities for 30 days post-op, they can remove their JAMIE hose for 1 hour for every 8 hours that they wear them, and they will be discharged with 2 pairs of JAMIE hose. [facility]10-06-2025 History of Present illness Narrative* Jimmie Garcia, DO - 04/05/2025 8:30 AM EDT Subjective Patient ID: Sakshi Hightower is a 60 y.o. female. Lina is here for a preoperative clearance. She has left total knee arthroplasty scheduled for Saturday. She had pre-op testing previously at the facility. She has no new problems to report. She did have a sinus infection last month and it had to be rescheduled. Her breathing is fine. She has no known cardiac disease. She can walk 2 city blocks or climb a couple flights of stairs without any chest pain or shortness breath. She no longer has sleep apnea since she lost weight after gastric bypass surgery. The following portions of the patient's history were reviewed and updated as appropriate: allergies, current medications, past family history, past medical history, past social history, past surgicalhistory, problem list, and medication reconciliation was completed including current medication andpost discharge medication. Review of Systems Constitutional: Negative. HENT: Negative. Respiratory: Negative. Cardiovascular: Negative. Gastrointestinal: Negative. Genitourinary: Negative. Musculoskeletal: Positive for arthralgias. Neurological: Negative. Psychiatric/Behavioral: Negative. Objective Physical Exam Vitals reviewed. Constitutional: General: She is not in acute distress. Appearance: She is obese. She is not ill-appearing. HENT: Head: Normocephalic. Nose: Nose normal. Mouth/Throat: Lips: [place]. Mouth: Mucous membranes are moist. Dentition: Abnormal dentition (bridge and some tooth loss). Pharynx: Oropharynx is clear. Uvula midline. No pharyngeal swelling. Eyes: General: No scleral icterus. Extraocular Movements: Extraocular movements intact. Conjunctiva/sclera: Conjunctivae normal. Cardiovascular: Rate and Rhythm: Normal rate and regular rhythm. Heart sounds: Normal heart sounds. No murmur heard. Pulmonary: Effort: No respiratory distress. Breath sounds: Normal breath sounds. No stridor. No wheezing, rhonchi or rales. Abdominal: Palpations: Abdomen is soft. Tenderness: There is no abdominal tenderness. Musculoskeletal: Cervical back: Neck supple. Right lower leg: No edema. Left lower leg: No edema. Lymphadenopathy: Cervical: No cervical adenopathy. Skin: General: Skin is warm and dry. Neurological: General: No focal deficit present. Mental Status: She is alert and oriented to person, place, and time. Psychiatric: Attention and Perception: Attention and perception normal. Mood and Affect: Mood and affect normal. Speech: Speech normal. Behavior: Behavior normal. Behavior is cooperative. Thought Content: Thought content normal. Cognition and Memory: Cognition normal. Judgment: Judgment normal. Assessment/Plan Sakshi was seen today for pre-op exam. Diagnoses and all orders for this visit: Pre-op evaluation Lina presents today for preop clearance. She has no known cardiac disease. Her asthma is under good control. She is not ill. She can do 4 METS of activity without any symptoms of coronary artery disease or asthma. Her EKG was normal. She is medically cleared. There was no further cardiac workup indicated. Primary osteoarthritis of left knee She has failed conservative measures. It is affecting her ADLs and IADLs. It is impacting her quality of life. She is in need of a total knee replacement. Mild intermittent asthma, unspecified whether complicated Stable. Class 1 obesity due to excess calories with serious comorbidity and body mass index (BMI) of 34.0 to 34.9 in adult She is obese. She would benefit from weight loss. Hopefully after getting her knee replaced she will be able to exercise more. Patient noted to have elevated BMI and the following intervention(s) were applied: encouragement toexercise. documented in this encounterSouthwestern Vermont Medical CenterDoximity09-19-2025 Miscellaneous Notes* Telephone Encounter - Coral White CMA - 03/19/2025 8:42 AM EDT Patient is really sick still and wanted to know if she could have a note for last night and tonightto be off * Telephone Encounter - Jimmie Garcia DO - 03/19/2025 8:42 AM EDT Sure. Note is printed * Telephone Encounter - Vanessa Garcia CMA - 03/19/2025 8:42 AM EDT Emailed to [email or web address] * Telephone Encounter - Vanessa Garcia CMA - 03/19/2025 8:42 AM EDT Patient emailed me back and stated that she needs RTW to state 03/22/25 [facility] Tele[facility] encounter Note* Telephone Encounter - Coral White CMA - 03/19/2025 8:42 AM EDT Patient is really sick still and wanted to know if she could have a note for last night and tonightto be off [facility] Telephone encounter Note* Telephone Encounter - Jimmie Garcia DO - 03/19/2025 8:42 AM EDT Sure. Note is printed [facility] Telephone encounter Note* Telephone Encounter - Vanessa Garcia CMA - 03/19/2025 8:42 AM EDT Emailed to [email or web address] [facility] Telephone encounter Note* Telephone Encounter - Vanessa Garcia CMA - 03/19/2025 8:42 AM EDT Patient emailed me back and stated that she needs RTW to state 03/22/25 [facility] [id number] History of Present illness Narrative* Jimmie Joyamookie, - 03/15/2025 4:00 PM EDT Subjective Patient ID: Sakshi Hightower is a 60 y.o. female. Lina presents today for her annual wellness. She had labs done last week at [facility] for her wellness that was ordered by the company doctor. She does not know the results of those tests yet.She is going to be getting her left knee replaced next week and then 6 weeks later replacing the right one. She currently has a sinus infection. It started a few days ago. She has pressure around her eyes. It is mostly congestion. She does have a cough and feels like it might be going into her chest. She does not have a fever. Her left eye is bothering her. She thinks she put her contacts in cleaning solution and not her nighttime lens solution. She is using lorazepam as needed. She has 1 every 2-3 days. Does help improve her quality of life. She is able to do ADLs and not have any side effects. She is using Lyrica 3 times a day. It is helping to improve her pain and quality of life. She is able to do her ADLs and IADLs because pain is reduced. She does not have any side effects. The following portions of the patient's history were reviewed and updated as appropriate: allergies, current medications, past family history, past medical history, past social history, past surgicalhistory, problem list, and medication reconciliation was completed including current medication andpost discharge medication. Review of Systems Constitutional: Negative. HENT: Positive for congestion, sinus pressure and sinus pain. Eyes: Positive for pain and redness. Respiratory: Positive for cough. Cardiovascular: Negative. Gastrointestinal: Negative. Endocrine: Negative. Genitourinary: Negative. Musculoskeletal: Positive for arthralgias, back pain and gait problem. Skin: Negative. Psychiatric/Behavioral: Positive for sleep disturbance. Objective Physical Exam Vitals reviewed. Constitutional: General: She is not in acute distress. Appearance: Normal appearance. She is obese. She is not ill-appearing. HENT: Head: Normocephalic. Right Ear: Tympanic membrane, ear canal and external ear normal. Left Ear: Tympanic membrane, ear canal and external ear normal. Nose: Congestion and rhinorrhea present. Rhinorrhea is clear. Right Turbinates: Not enlarged, swollen or pale. Left Turbinates: Enlarged and swollen. Not pale. Mouth/Throat: Lips: [place]. Mouth: Mucous membranes are moist. Pharynx: Postnasal drip present. No pharyngeal swelling or posterior oropharyngeal erythema. Eyes: General: No scleral icterus. Extraocular Movements: Extraocular movements intact. Conjunctiva/sclera: Left eye: Left conjunctiva is injected. Neck: Vascular: No carotid bruit. Cardiovascular: Rate and Rhythm: Normal rate and regular rhythm. Heart sounds: Normal heart sounds. No murmur heard. Pulmonary: Effort: Pulmonary effort is normal. No respiratory distress. Breath sounds: Normal breath sounds. No wheezing, rhonchi or rales. Abdominal: General: Bowel sounds are normal. There is no distension. Palpations: Abdomen is soft. Tenderness: There is no abdominal tenderness. There is no guarding. Hernia: No hernia is present. Musculoskeletal: General: Tenderness present. Cervical back: Neck supple. Right lower leg: No edema. Left lower leg: No edema. Lymphadenopathy: Cervical: No cervical adenopathy. Skin: General: Skin is warm and dry. Neurological: General: No focal deficit present. Mental Status: She is alert and oriented to person, place, and time. Psychiatric: Mood and Affect: Mood normal. Behavior: Behavior normal. Behavior is cooperative. Thought Content: Thought content normal. Judgment: Judgment normal. Assessment/Plan Sakshi was seen today for annual exam. Diagnoses and all orders for this visit: Well adult exam - Cancel: Comprehensive metabolic panel; Future - Cancel: Lipid profile; Future We will try to track down her wellness labs done through work. Health maintenance discussed. She will get the flu vaccine through work. Class 1 obesity due to excess calories with serious comorbidity and body mass index (BMI) of 34.0 to 34.9 in adult Patient continues with a bit of weight loss. She stopped the Wegovy since it was no longer compounded and she could not get it and if it affordable ramos. Continue diet. Hopefully she will get her knees replaced in be able to exercise Generalized anxiety disorder Stable. Continue current regimen. She uses lorazepam occasionally with benefit. She does not have any side effects. It is improving her quality of life. Encounter for screening mammogram for malignant neoplasm of breast - Mammography screening bilateral with CAD; Future She agreed to mammogram. She would pursue further evaluation and treatment if needed. Screen for colon cancer - Cologuard Non-[facility] We discussed colonoscopy versus Cologuard. She agrees to the Cologuard. She would pursue further evaluation and treatmet with a colonoscopy if needed. Need for vaccination - Tdap vaccine greater than or equal to 7yo IM She agreed to the Tdap booster. Need for shingles vaccine - Zoster Subunit Patient agrees to the shingles vaccine. She will get a booster in 3-6 months Other acute recurrent sinusitis She does have symptoms of sinusitis although she does not have a fever. Since she has surgery coming up in 1 week and will cover with an antibiotic. Continue [id number]-zzarrqu medications Chronic bilateral low back pain without sciatica Renew Lyrica 150 mg 3 times a day. She is deriving benefit and not having any side effects. It is high risk medication. It is improving quality of life and ability to do ADLs and IADLs. Other orders - amoxicillin (AMOXIL) 500 mg capsule; Take 1 capsule (500 mg total) by mouth 3 (three) times a dayfor 7 days. 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 Independent Concerns With Patient Being Able To Care For Themselves At Discharge? Has Assistance (Friend, Family, Skilled Provider) Employment/Financial Employed? 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 Patient states the plan is to discharge to her daughter's home with family/friends assistance, [facility] requested and then OP therapy with [facility] in [place]. Patient has a wheeled walker. Patient denies any other questions or needs at this time. CM to continue to follow and assist with discharge plans. [facility]08-06-2025 History of Present illness Narrative* Evelin Hernandez - 02/03/2025 1:50 PM EDT Ortho Nurse - Established Patient Intake Room#: room 2--- STORAGE BATTERY CHARGER - referral from Dr. Garcia - Left knee pain for years; stairs are difficult; knee gives out. She has tried injections and therapy with last injections being 3 months ago. She rates her pain on a scale of 8/10. denies nicotine; surgery discussion Date: 02/03/2025 2:07 PM Patient: Sakshi Hightower MR#: [id number] : 1965 Age: 60 y.o. Referring Physician: Jimmie Garcia DO Insurance: No coverage found. Chief Complaint Patient presents with Left Knee - Pain Visit Vitals Ht 1.727 m (5' 8 ) Wt 96.5 kg (212 lb 12.8 oz) BMI 32.36 kg/m Pain 1. Are you having pain? 2. On a scale from 1-10: Recent Labs No results found for: CRP No results found for: SEDRATE No results found for: WBC , WBCCOUNT , WBCFETAL , HGB , HCT , PLATELET , MCV History Past Medical History: Diagnosis Date Arthritis Asthma GERD (gastroesophageal reflux disease) Past Surgical History: Procedure Laterality Date GASTRIC BYPASS 2014 BACK SURGERY 1999 lumectomy TONSILLECTOMY Family History: Her family history is not on file. Social History: Her reports that she has never smoked. She has never used smokeless tobacco. No history on file for alcohol use and drug use. Outpatient Medications Prior to Visit Medication Sig Dispense Refill escitalopram 20 MG tablet Take 1 tablet by mouth daily every morning. hydrOXYzine HCl 25 MG tablet TAKE 1 TABLET BY MOUTH THREE TIMES DAILY NEEDED FOR ITCHING OR ANXTIETY Ondansetron 8 MG Tab Dispersible tablet Take 1 tablet by mouth Every 8 hours as needed. Pantoprazole [address] tablet DR Take 1 tablet by mouth. Albuterol 108 (90 Base) MCG/ACT Aero Soln inhaler Inhale 2 puffs. Cholecalciferol (Vitamin D3) 1.25 MG (01711 UT) capsule Take 1 capsule by mouth once a week. EPINEPHrine 0.3 MG/0.3ML Solution Auto-injector injection Inject 0.3 mL intramuscularly. hydroCODone-acetaminophen 5-325 MG tablet TAKE 1 TABLET BY MOUTH 3 TIMES A DAY NEEDED FOR PAIN FOR 30 DAYS Ibuprofen 600 MG tablet Take 1 tablet by mouth every 6 hours. LORazepam 0.5 MG tablet Take 1 tablet by mouth 2 times daily as needed for Anxiety. Pregabalin 50 MG capsule Take 1 capsule by mouth 3 times daily. tiZANidine 4 MG tablet Take 1 tablet by mouth every 8 hours as needed for Muscle spasms. No facility-administered medications prior to visit. Allergies: She is allergic to almond meal, peanut-containing drug products, tramadol, and gramineaepollens. * Joaquín Baez MD - 02/03/2025 1:50 PM EDT HPI: Patient is here today for evaluation of left knee pain. She is new to this practice and is a referral from Dr. Garcia. Primary complaint is pain, impairment in the knee and a decreased quality of life secondary to her left knee pain. 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 The pain radiates locally, not associated with numbness or tinging. She has a lot of instability with it. She has experienced locking, popping, catching and clicking. Patient is apprehensive of falling on a daily basis. The more she is on it, the more it hurts. Patient has tried [place],injections and weight modification in the past, which do not provide relief from current symptoms. Adarsh gandhi is here today for evaluation and to determine treatment options. Pain is 8-9/10 on a daily basis. History of gastric bypass surgery. Patient is seeing pain management in [place] where she is prescribed [place]. PHYSICAL EXAM: This is an alert, oriented, and age-appropriate female. She is in no distress. Pleasant and cooperative. EXTREMITIES: The upper extremities have no gross deformities. Normal stability.Skin Intact. 5/5 motor. Intact sensation. Normal neurovascular status. Normal coordination. The lower extremities have no gross deformities. Normal stability. Skin Intact. 5/5 motor. Intact sensation. Normal neurovascular status. Normal coordination. Range of motion upon exam today is 2-.110 Fixed varus alignment. Full motion of hip. No pain. No impingement. No instability. Contralateral leg has normal alignment. Full motion. No pain. No impingement. No instability. IMAGING: Plain film radiographs were reviewed. Long-standing films of mechanical axis that falls tothe medial compartment of the left knee. Multiple views of the knee demonstrate moderate-severe arthritis of the medial and patellofemoral compartment of the knee with loss of joint space, subchondral sclerosis, osteophyte formation, and [id number] contact. IMPRESSION: 1.) Severe symptomatic end-stage arthritis, left knee. PLAN: We have discussed in great detail the nature of the diagnosis, the natural history and expected progression which is likely worsening pain, instability with risks of falls, and additional jointwear and or bone loss. We have discussed the options for treatment including both conservative and operative treatments. We have discussed the risks, benefits, and alternatives to each treatment. Sakshi is interested in surgical management in the form of a left total knee replacement. Sakshi understands that the potential benefits are reduced pain, improved stability and improved function. Sakshi also understands that the major limb and/or life threatening risks include, but are not limited to: bleeding, infection, neurovascular injury including foot drop or paralysis, dislocation, component failure, implant loosening, ligament or tendon disruption, fracture, stiffness, chronic pain, chronic disability, need for further surgery, blood clots in the extremities or lungs, stroke, heart attack, loss of limb, and ultimately loss of life. FDC expectations, risks and general implant survivorship were also discussed. Despite these risks, the patient would like to proceed with surgical planning. Today, we will initiate the pre-surgical process including nasal MRSA screening, scheduling an appointment for [facility] and the potential surgical date, and reviewing and signing the consent forms. I have reviewed the findings of my clinical staff below and agree with their assessment. Vitals: 02/03/25 1359 Weight: 96.5 kg (212 lb 12.8 oz) Height: 1.727 m (5' 8 ) Pain Recent Labs No results found for: CRP No results found for: SEDRATE No results found for: WBC , WBCCOUNT , WBCFETAL , HGB , HCT , PLATELET , MCV Past Medical History: Diagnosis Date Arthritis Asthma GERD (gastroesophageal reflux disease) Past Surgical History: Procedure Laterality Date GASTRIC BYPASS 2014 BACK SURGERY 1999 lumectomy TONSILLECTOMY History reviewed. No pertinent family history. Social History Socioeconomic History Marital status: Tobacco Use Smoking status: Never Smokeless tobacco: Never Social Drivers of Health Food Insecurity: No Food Insecurity (08/31/2024) Received from [employer] Hunger Screening Within the past 12 months we worried whether our food would run out before we got money to buy more.: Never True Within the past 12 months the food we bought just didn't last and we didn't have money to get more.: Never True Physical Activity: Insufficiently Active (08/31/2024) Received from [employer] Exercise Vital Sign Days of Exercise per Week: 3 days Minutes of Exercise per Session: 20 min Housing Stability: Low Risk (10/15/2023) Received from [facility] Housing Instability Are you worried or concerned that in the next two months you may not have stable housing that you own, rent or stay in as a part of a household?: No Current Outpatient Medications: Albuterol 108 (90 Base) MCG/ACT Aero Soln inhaler, Inhale 2 puffs., Disp: , Rfl: Cholecalciferol (Vitamin D3) 1.25 MG (42068 UT) capsule, Take 1 capsule by mouth once a week., Disp: , Rfl: EPINEPHrine 0.3 MG/0.3ML Solution Auto-injector injection, Inject 0.3 mL intramuscularly., Disp: , Rfl: escitalopram 20 MG tablet, Take 1 tablet by mouth daily every morning., Disp: , Rfl: hydroCODone-acetaminophen 5-325 MG tablet, TAKE 1 TABLET BY MOUTH 3 TIMES A DAY NEEDED FOR PAIN FOR 30 DAYS, Disp: , Rfl: hydrOXYzine HCl 25 MG tablet, TAKE 1 TABLET BY MOUTH THREE TIMES DAILY NEEDED FOR ITCHING OR ANXTIETY, Disp: , Rfl: Ibuprofen 600 MG tablet, Take 1 tablet by mouth every 6 hours., Disp: , Rfl: LORazepam 0.5 MG tablet, Take 1 tablet by mouth 2 times daily as needed for Anxiety., Disp: , Rfl: Ondansetron 8 MG Tab Dispersible tablet, Take 1 tablet by mouth Every 8 hours as needed., Disp: , Rfl: Pantoprazole [address] tablet DR, Take 1 tablet by mouth., Disp: , Rfl: Pregabalin 50 MG capsule, Take 1 capsule by mouth 3 times daily., Disp: , Rfl: tiZANidine 4 MG tablet, Take 1 tablet by mouth every 8 hours as needed for Muscle spasms., Disp: , Rfl: Allergies Allergen Reactions [place] Meal Anaphylaxis States she has EPI pen Peanut-Containing Drug Products Anaphylaxis Tree nuts Tramadol Anaphylaxis, Hives, Itching and Rash Other Reaction(s): Intolerance Heart racing Gramineae Pollens Itching ragweed [facility] History of Present illness Narrative* Jimmie Garcia, - 12/03/2024 4:15 PM EDT Subjective Patient ID: Sakshi Hightower is a 59 y.o. female. Lina presents today for recheck of multiple problems. She has been seeing pain management for her left knee pain. She has arthritis and was told she needed a knee replacement. She has been seeing painmanagement and was taking [place] but that did not help. She also had nerve blocks in her knee and that only made it worse. Her pain is an 8-9 on scale 1-10. She has failed conservative measures, pain management. She would like a referral to ortho about getting her knee replaced. She needs a cane to ambulate for far distances. She would like a handicap parking placard. She also has been having issues with a tremor. Feels like it is coming from inside . She is worried that she might have Parkinson's disease. She notices it does get worse when she is trying to do something like work on her phone or computer. She rarely drinks caffeinated beverages. She did have anepisode where it was so bad that she had to leave work. She does have history of depression and anxiety. She is on Lexapro 20 mg daily. She used to take lorazepam with benefit. She tried hydroxyzine but it made her too drowsy to work. She is taking compounded semaglutide for weight loss and has been losing weight. She would like to discuss alternatives to the compounded regimen now that we are no longer prescribing it. The following portions of the patient's history were reviewed and updated as appropriate: allergies, current medications, past family history, past medical history, past social history, past surgicalhistory, problem list, and medication reconciliation was completed including current medication andpost discharge medication. Review of Systems Constitutional: Negative. Respiratory: Negative. Cardiovascular: Negative. Gastrointestinal: Negative. Genitourinary: Negative. Musculoskeletal: Positive for arthralgias, back pain and gait problem. Neurological: Positive for tremors. Psychiatric/Behavioral: Positive for dysphoric mood. The patient is nervous/anxious. Objective Physical Exam Vitals reviewed. Exam conducted with a water taxi captain present (Mario Ibanez MS 3). Constitutional: Appearance: Normal appearance. She is obese. HENT: Head: Normocephalic. Cardiovascular: Rate and Rhythm: Normal rate and regular rhythm. Pulses: Normal pulses. Heart sounds: Normal heart sounds. Pulmonary: Effort: Pulmonary effort is normal. No respiratory distress. Breath sounds: Normal breath sounds. No wheezing, rhonchi or rales. Musculoskeletal: Cervical back: Neck supple. Neurological: General: No focal deficit present. Mental Status: She is alert and oriented to person, place, and time. Cranial Nerves: Cranial nerves 2-12 are intact. No cranial nerve deficit, dysarthria or facial asymmetry. Sensory: Sensation is intact. Motor: Motor function is intact. Coordination: Coordination is intact. Romberg sign negative. Coordination normal. Ipdwav-Wqie-Plauhq Test and Heel to Pinon Test normal. Rapid alternating movements normal. Gait: Gait is intact. Deep Tendon Reflexes: Reflex Scores: Tricep reflexes are 2+ on the right side and 2+ on the left side. Bicep reflexes are 2+ on the right side and 2+ on the left side. Brachioradialis reflexes are 2+ on the right side and 2+ on the left side. Patellar reflexes are 2+ on the right side and 2+ on the left side. Achilles reflexes are 2+ on the right side and 2+ on the left side. Psychiatric: Attention and Perception: Attention normal. Mood and Affect: Mood and affect normal. Speech: Speech normal. Behavior: Behavior normal. Behavior is cooperative. Thought Content: Thought content normal. Cognition and Memory: Cognition and memory normal. Judgment: Judgment normal. Assessment/Plan Sakshi was seen today for 3 month f/u. Diagnoses and all orders for this visit: Class 1 obesity due to excess calories with serious comorbidity and body mass index (BMI) of 34.0 to 34.9 in adult - semaglutide, weight loss, (WEGOVY) 1 mg/0.5 mL pen injector; Inject 0.5 mL (1 mg total) under theskin every 7 days. She is obese. She has been losing weight with semaglutide compounded regimen. We discussed alternatives. Wegovy has a special this month for 200 dollars. She would like to continue with a Wegovy prescription. Tremor - Comprehensive metabolic panel; Future - TSH with Reflex; Future - CBC without diff; Future - CBC without diff - TSH with Reflex - Comprehensive metabolic panel Etiology unclear. No obvious tremor at rest. We will check labs. Possibly anxiety is the cause. Tayler can also do it but she has been on that for a couple years now. Recurrent major depressive disorder, remission status unspecified Doing well on Lexapro 20 mg daily. Chronic bilateral low back pain without sciatica Continue Lyrica. Primary osteoarthritis of left knee - Ambulatory referral to Orthopedic Surgery (Non[facility]); Future She has failed conservative measures. Will refer to ortho for definitive care. She needs a cane to ambulate long distances. We will give her a handicap parking placard. She has a severe orthopedic condition. We will just do 6 months since it is essentially reversible with a knee replacement. Anxiety - LORazepam (ATIVAN) 0.5 mg tablet; Take 1 tablet (0.5 mg total) by mouth 2 (two) times a day as needed for anxiety. Risks and benefits of lorazepam discussed. She had used it in the past with benefit. She is not having any side effects with it. We will renew lorazepam for p.r.n. use. documented in [facility] NoteProcedure: Bilateral Genicular Nerve Block of the Superior-medial, Superior-lateral, and Inferior-medial genicular nerves under 6 seconds fluoroscopic guidance. Diagnosis: Chronic pain secondary to bilateral Knee pain. Physician: Manpreet Hampton M.D. ANESTHESIA: Local. Solution: 4 mLs 0.50% Marcaine with 1 100,000 epinephrine, 40mg Kenalog COMPLICATIONS: None. EBL: None IMPLANTS: None. ASSISTANTS: None. SAMPLES TAKEN: None ANTIBIOTICS: None Risks, benefits, alternatives were reviewed, all questions were answered appropriately, consent wasobtained both written and verbal prior to the procedure. The patient was escorted to the procedure room and placed in the supine position. A pre-procedure time out was conducted verifying patient name, site, and side of the procedure as well as any contraindications which there were none. The area of the operative knee was prepped and draped in usual sterile fashion. Fluoroscopy was used to identify the landmarks including the superior-medial, superior-lateral, and inferior-medial genicular nerves. We then injected the bilateral superomedial, then superolateral then inferomedial joint nerve, which was preceded by negative aspiration. The procedure was concluded with withdrawal of the needleand the patient was escorted to the recovery area in stable condition having tolerated the procedure well. The patient will follow-up as scheduled. This document serves as a record of the services and decisions personally performed and made by theattending provider. It was created on his/her behalf by a trained medical doctor nuclear medicine. The creation of this document is based on the provider?s statements to the medical doctor nuclear medicine. Electronically signed by Manpreet Hampton MD 11/19/24 16:24 EDT Electronically signed by Mireya Rm 11/19/2024 16:08 [facility]05-22-2025 NoteHistory of Present Illness CHIEF COMPLAINT: [_] Knee pain HISTORY OF PRESENT ILLNESS: Debilitating [_] knee pain which worsens with varus and valgus. PHYSICAL EXAM: HEENT: Normocephalic, atraumatic. RESPIRATIONS: Unlabored, clear. CARDIOVASCULAR: Regular rate, rhythm. ABDOMEN: Soft nontender MUSCULOSKELETAL: Pain that does re-create with lateral stress maneuver. REVIEW OF SYSTEMS: Brief review of systems was conducted. Complaints are noncontributory for cauda equina or myelopathic complaints, fever chills or sweats or unintended weight loss or gain. ASSESSMENT: Chronic pain secondary to Bilateral Knee joint pain. PLAN: Genicular nerve blockade for diagnostic and potential therapeutic benefit. Benefits risks alternatives have been described all questions were answered prior to the injection the patient agrees to proceed Physical Exam Vitals & Measurements HR: 68 (Peripheral) RR: 16 BP: 111/76 SpO2: 96% HT: 172 cm WT: 97.5 kg Additional Vitals No qualifying data available. This document serves as a record of the services and decisions personally performed and made by theattending provider. It was created on his/her behalf by a trained medical doctor nuclear medicine. The creation of this document is based on the provider?s statements to the medical doctor nuclear medicine. Problem List/Past Medical History Ongoing Bariatric surgery status Chronic low back pain Chronic, continuous use of opioids Chronically on opiate therapy Depression Generalized anxiety disorder Headache Low back pain Low back pain Lumbar neuritis Lumbar paraspinal muscle spasm Lumbosacral spondylosis Other malaise Other obesity due to excess calories Pain in left knee Pain in right knee Panic disorder [episodic paroxysmal anxiety] without agoraphobia Historical No qualifying data Procedure/Surgical History laminectomy L1 (07/07/2012) Lumbar/Sacral Dorsal Medial Branch Block (Left) (08/27/2019) Lumbar/Sacral Transforaminal Epidural Steroid Injection (Left) (11/26/2019) Lumbar/Sacral Transforaminal Epidural Steroid Injection (Left) (12/10/2019) Lumbar/Sacral Transforaminal Epidural Steroid Injection (Left) (05/18/2020) Sacroiliac Joint Injection (Left) (06/01/2020) Lumbar/Sacral Transforaminal Epidural Steroid Injection (Right) (08/10/2020) Lumbar/Sacral Transforaminal Epidural Steroid Injection (Bilateral) (11/21/2023) Medications Inpatient No active inpatient medications Home acetaminophen cod oil supplement, See Instructions EpiPen 2-Antolin 0.3 mg injectable kit, 0.3 mg, Subcutaneous, Once joint health dietary supplement, See Instructions Lexapro 20 mg oral tablet, 20 mg= 1 tabs, Oral, Daily Lyrica 50 mg oral capsule, 50 mg= 1 caps, Oral, TID [place] 5 mg-325 mg oral tablet, 1 tabs, Oral, TID, PRN, DO NOT FILL UNTIL 09-16-2024 to last 30 days PM NON OPIOID CANDIDATE 09/24/24 Protonix, 40 mg, Oral, Daily Vistaril 25 mg oral capsule, Oral, QID, Not taking Zanaflex 4 mg oral capsule, Oral, TID Allergies Nuts (Shortness of breath) seasonal allergies (Unknown) Ultram (Rash) Social History Alcohol Current, 1-2 times per month 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 Cigarettes Family History Hypertension: Father. Health Status Family Member(s) Lab Results Microbiology - Current Encounter No qualifying data available. Electronically signed by Manpreet Hampton MD 11/19/24 16:24 EDT Electronically signed by JagMireya araujo 11/19/2024 15:[address] [facility] History of Present illness Narrative* Jimmie Garcia, DO - 08/31/2024 4:30 PM EST Subjective Patient ID: Sakshi Hightower is a 59 y.o. female. Lina presents today for a visit to discuss weight loss. She was taking Wegovy in the past and was losing weight with it. We did try trait up to the maximal dose that she could tolerate which was 1.7 but then after a couple weeks she became sick. She had intractable nausea vomiting that lasted days to weeks. She is all better now. She would like to restart the medication but keep it at the lower doses. 1 mg weekly is probably her maximally tolerated dose. The following portions of the patient's history were reviewed and updated as appropriate: allergies, current medications, past family history, past medical history, past social history, past surgicalhistory, problem list, and medication reconciliation was completed including current medication andpost discharge medication. Review of Systems Objective Physical Exam Vitals reviewed. Exam conducted with a water taxi captain present (Leo Davison MS3). Constitutional: General: She is not in acute distress. Appearance: She is obese. She is not ill-appearing. HENT: Head: Normocephalic. Cardiovascular: Rate and Rhythm: Normal rate and regular rhythm. Pulses: Normal pulses. Heart sounds: Normal heart sounds. No murmur heard. Pulmonary: Effort: Pulmonary effort is normal. No respiratory distress. Breath sounds: Normal breath sounds. No wheezing, rhonchi or rales. Musculoskeletal: Cervical back: Neck supple. Lymphadenopathy: Cervical: No cervical adenopathy. Neurological: General: No focal deficit present. Mental Status: She is alert and oriented to person, place, and time. Psychiatric: Attention and Perception: Attention and perception normal. Mood and Affect: Mood and affect normal. Speech: Speech normal. Behavior: Behavior normal. Behavior is cooperative. Thought Content: Thought content normal. Cognition and Memory: Cognition and memory normal. Judgment: Judgment normal. Assessment/Plan Sakshi was seen today for weight loss. Diagnoses and all orders for this visit: Class 1 obesity due to excess calories with serious comorbidity and body mass index (BMI) of 33.0 to 33.9 in adult - semaglutide, weight loss, (WEGOVY) 0.25 mg/0.5 mL pen injector; Inject 0.5 mL (0.25 mg total) under the skin every 7 days. She did well with low doses of Wegovy in the past. She derive benefit from it. She is at high risk for developing weight related complications. We will start with Wegovy 0.25 mg weekly and recheck her in 3 months. She will uses in conjunction with a low-calorie diet and exercise program. documented in this [facility] Miscellaneous Notes* Telephone Encounter - Vanessa Garcia CMA - 03/23/2024 9:31 AM EDT Patient called and stated that she needs the next 2 days off. * Telephone Encounter - Yanet Carrera - 03/23/2024 9:31 AM EDT Patient called back and needs the time off extended going back to work 03/25 please fax to [phone] * Telephone Encounter - Jimmie Garcia DO - 03/23/2024 9:31 AM EDT Okay. Note is printed to be faxed * Telephone Encounter - Yanet Carrera - 03/23/2024 9:31 AM EDT faxed documented in this encounterSub[facility] Telephone encounter Note* Telephone Encounter - Vanessa Garcia CMA - 03/23/2024 9:31 AM EDT Patient called and stated that she needs the next 2 days off. [facility]-23-2024 Telephone encounter Note* Telephone Encounter - Yanet Carrera - 03/23/2024 9:31 AM EDT Patient called back and needs the time off extended going back to work 03/25 please fax to [phone] [facility]09-23-2024 Telephone encounter Note* Telephone Encounter - Jimmie Garcia DO - 03/23/2024 9:31 AM EDT Okay. Note is printed to be faxed [facility]09-23-2024 Telephone encounter Note* Telephone Encounter - Yanet Carrera - 03/23/2024 9:31 AM EDT faxed [facility]09-19-2024 History of Present illness Narrative* Jimmie Garcia DO - 03/19/2024 3:45 PM EDT Subjective Patient ID: Sakshi Hightower is a 59 y.o. female. Lina presents today for an ER follow-up. She was taking an increased dose of Wegovy and started withthe 1.7 mg dose at the end of December. She had always had intermittent nausea previously with Wegovy but this was much worse. It has gotten so bad that she has been essentially unable to take her routine medications. Nausea usually hits after she ingests something like medications, food or drinks. It was so bad she had to go to the emergency room. She did get IV fluids and felt better but the symptoms recurred. She can not eat very much at all. She drank some water today and had half a piece of toast but vomited that up. She had to get a chair and move around at work last weekend it was so bad. She was unable to go in Saturday and is supposed to work today and tomorrow. 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 She does not really have abdominal pain with it. She feels very weak. She it feels like she may pass out but hasn't. The following portions of the patient's history were reviewed and updated as appropriate: allergies, current medications, past family history, past medical history, past social history, past surgicalhistory, problem list, and medication reconciliation was completed including current medication andpost discharge medication. Review of Systems Constitutional: Positive for fatigue and unexpected weight change. Gastrointestinal: Positive for nausea and vomiting. Neurological: Positive for weakness. Objective Physical Exam Constitutional: General: She is not in acute distress. Appearance: She is obese. She is ill-appearing (mildly). HENT: Head: Normocephalic. Cardiovascular: Rate and Rhythm: Normal rate and regular rhythm. Pulses: Normal pulses. Heart sounds: Normal heart sounds. Pulmonary: Effort: Pulmonary effort is normal. No respiratory distress. Breath sounds: Normal breath sounds. No wheezing, rhonchi or rales. Neurological: General: No focal deficit present. Mental Status: She is alert and oriented to person, place, and time. Cranial Nerves: Cranial nerves 2-12 are intact. Gait: Gait is intact. Psychiatric: Attention and Perception: Attention normal. Mood and Affect: Mood and affect normal. Speech: Speech normal. Behavior: Behavior normal. Behavior is cooperative. Thought Content: Thought content normal. Cognition and Memory: Cognition normal. Judgment: Judgment normal. Assessment/Plan Sakshi was seen today for follow-up. Diagnoses and all orders for this visit: Nausea and vomiting, unspecified vomiting type Will try Reglan 5 mg 4 times a day. She can also use 1 of the other antiemetics that she has at home p.r.n. Reglan should counter act the effects of Wegovy as it is a prokinetic agent and Wegovy stops gastroparesis. Hypokalemia - Basic Metabolic Panel; Future - Magnesium; Future Check basic metabolic panel and will also check magnesium Other fatigue - Magnesium; Future Check magnesium. CBC done at the ER was normal couple days ago. She also stopped a high dose of Lexapro and can be having withdrawal symptoms from that as well Class 1 obesity due to excess calories with serious comorbidity and body mass index (BMI) of 33.0 to 33.9 in adult She has lost a significant amount of weight but is having tremendous side effects from the medication. She is not going to restart the medication. The benefit does not outweigh the risk and side effects Other orders - metoclopramide (REGLAN) 5 mg tablet; Take 1 tablet (5 mg total) by mouth in the morning and 1 tablet (5 mg total) at noon and 1 tablet (5 mg total) in the evening and 1 tablet (5 mg total) before bedtime. documented in this encounterSub[facility] Miscellaneous Notes* Telephone Encounter - Simona Bailon CMA - 12/16/2023 4:53 PM EDT Pt called wanted to know if you could send over something for nausea she can't get ahold of it , stated she did stop the wegovy this past week to see if it is from that * Telephone Encounter - Jimmie Garcia DO - 12/16/2023 4:53 PM EDT Okay I sent in Phenergan. It probably is the Wegovy * Telephone Encounter - Simona Bailon CMA - 12/16/2023 4:53 PM EDT Called pt read your note , she asked about the ozempic the compounded way she said she read that ithas less nasuea side effects, I told her I only knew of [facility] doing compound , told her to call her pharmacy to see if they do that then go from there about talking to you about switching * Telephone Encounter - Simona Bailon CMA - 12/16/2023 4:53 PM EDT Pt called back said her pharmacy dont do compound but she is willing to drive to [place] to get itif you allow it * Telephone Encounter - Jimmie Garcia DO - 12/16/2023 4:53 PM EDT Okay. I printed out a form to faxed to [facility] * Telephone Encounter - Yanet Carrera - 12/16/2023 4:53 PM EDT done documented in this encounterSub[facility] Telephone encounter Note* Telephone Encounter - Simona Bailon CMA - 12/16/2023 4:53 PM EDT Pt called wanted to know if you could send over something for nausea she can't get ahold of it , stated she did stop the wegovy this past week to see if it is from that [facility] Telephone encounter Note* Telephone Encounter - Jimmie Garcia DO - 12/16/2023 4:53 PM EDT Okay I sent in Phenergan. It probably is the Wegovy [facility] Telephone encounter Note* Telephone Encounter - Simona Bailon CMA - 12/16/2023 4:53 PM EDT Called pt read your note , she asked about the ozempic the compounded way she said she read that ithas less nasuea side effects, I told her I only knew of [facility] doing compound , told her to call her pharmacy to see if they do that then go from there about talking to you about switching [facility] Telephone encounter Note* Telephone Encounter - Simona Bailon CMA - 12/16/2023 4:53 PM EDT Pt called back said her pharmacy dont do compound but she is willing to drive to [place] to get itif you allow it [facility]06-17-2024 Telephone encounter Note* Telephone Encounter - Jimmie Garcia DO - 12/16/2023 4:53 PM EDT Okay. I printed out a form to faxed to [facility]06-17-2024 Telephone encounter Note* Telephone Encounter - Yanet Carrera - 12/16/2023 4:53 PM EDT done [facility]04-16[facility] History of Present illness Narrative* Jimmie Garcia DO - 10/15/2023 3:00 PM EDT Subjective Patient ID: Sakshi Hightower is a 58 y.o. female. Lina presents as a new patient. She has multiple chronic illness which are under pretty good control. She is obese and had gastric bypass surgery and lost a lot of weight but had gained some recently.She was recently started on wegovy and did get nauseated. Her previous PCP told her to decrease thedose and wouldn't give her anything for nausea. Her anxiety and depression are doing well. The following portions of the patient's history were reviewed and updated as appropriate: allergies, current medications, past family history, past medical history, past social history, past surgicalhistory, problem list, and medication reconciliation was completed including current medication andpost discharge medication. Review of Systems Objective Physical Exam Constitutional: General: She is not in acute distress. Appearance: She is obese. HENT: Head: Normocephalic. Eyes: General: No scleral icterus. Extraocular Movements: Extraocular movements intact. Conjunctiva/sclera: Conjunctivae normal. Cardiovascular: Rate and Rhythm: Normal rate and regular rhythm. Pulses: Normal pulses. Heart sounds: Normal heart sounds. No murmur heard. Pulmonary: Effort: Pulmonary effort is normal. No respiratory distress. Breath sounds: Normal breath sounds. No wheezing. Abdominal: General: Bowel sounds are normal. Palpations: Abdomen is soft. Tenderness: There is no abdominal tenderness. Musculoskeletal: Cervical back: Neck supple. Lymphadenopathy: Cervical: No cervical adenopathy. Skin: General: Skin is warm. Neurological: General: No focal deficit present. Mental Status: She is alert and oriented to person, place, and time. Psychiatric: Attention and Perception: Attention normal. Mood and Affect: Mood and affect normal. Speech: Speech normal. Behavior: Behavior normal. Behavior is cooperative. Thought Content: Thought content normal. Cognition and Memory: Cognition normal. Judgment: Judgment normal. Assessment/Plan Sakshi was seen today for new patient. Diagnoses and all orders for this visit: Anxiety Stable. Continue current regimen. Depression, unspecified depression type Stable. Continue current regimen. MARYLU (obstructive sleep apnea) Stable. Continue current regimen Gastroesophageal reflux disease, unspecified whether esophagitis present Stable. Continue current regimen. Class 2 severe obesity due to excess calories with serious comorbidity and body mass index (BMI) of39.0 to 39.9 in adult (CMS-HCC) Continue Wegovy. Screen for colon cancer - Cologuard Non-[facility] She agrees to cologuard. She would pursue further evaluation. Encounter for screening mammogram for malignant neoplasm of breast - Cancel: Mammography screening bilateral with CAD; Future - Mammography screening bilateral with CAD; Future She agrees to mammogram. She would pursue further evaluation and treatment. Ex-cigarette smoker - CT low dose lung screening (Annual); Future She qualifies for LDCT scan to screen for lung cancer. Risks and benefits discussed. There is low dose radiation. She would pursue further evaluation and treatment. She doesn't have any symptoms. [facility] Diagnosis Primary osteoarthritis of knee, unspecified laterality- Primary [facility]* Diagnosis Morbid obesity ([facility])- Primary Morbid obesity [facility]* Diagnosis Class 2 severe obesity due to excess calories with serious comorbidity and body mass index (BMI) of39.0 to 39.9 in adult ([facility])- Primary [facility]* Diagnosis Anxiety- Primary Anxiety state, unspecified Depression, unspecified depression type MARYLU (obstructive sleep apnea) Obstructive sleep apnea (adult) (pediatric) Gastroesophageal reflux disease, unspecified whether esophagitis present Class 2 severe obesity due to excess calories with serious comorbidity and body mass index (BMI) of39.0 to 39.9 in adult ([facility]) Screen for colon cancer Special screening for malignant neoplasms, colon Encounter for screening mammogram for malignant neoplasm of breast Ex-cigarette smoker Personal history of tobacco use, presenting hazards to health documented [facility]* Diagnosis Nausea and vomiting, unspecified vomiting type- Primary Hypokalemia Hypopotassemia Other fatigue Class 1 obesity due to excess calories with serious comorbidity and body mass index (BMI) of 33.0 to 33.9 in adult documented [facility]* Diagnosis Class 1 obesity due to excess calories with serious comorbidity and body mass index (BMI) of 33.0 to 33.9 in adult- Primary documented [facility]* Diagnosis Class 1 obesity due to excess calories with serious comorbidity and body mass index (BMI) of 33.0 to 33.9 in adult- Primary documented [facility]* Diagnosis Class 1 obesity due to excess calories with serious comorbidity and body mass index (BMI) of 34.0 to 34.9 in adult- Primary Tremor Abnormal involuntary movements Recurrent major depressive disorder, remission status unspecified Chronic bilateral low back pain without sciatica Primary osteoarthritis of left knee Anxiety Anxiety state, unspecified documented [facility]* Diagnosis Chronic bilateral low back pain without sciatica- Primary documented [facility]* Diagnosis Primary osteoarthritis of left knee- Primary documented [facility]* Diagnosis Left knee pain, unspecified chronicity- Primary Osteoarthritis of left knee, unspecified osteoarthritis type [facility] Well adult exam- Primary Routine general medical examination at a health care facility Class 1 obesity due to excess calories with serious comorbidity and body mass index (BMI) of 34.0 to 34.9 in adult Generalized anxiety disorder Encounter for screening mammogram for malignant neoplasm of breast Screen for colon cancer Special screening for malignant neoplasms, colon Need for vaccination Need for prophylactic vaccination and inoculation against unspecified single disease Need for shingles vaccine Need for prophylactic vaccination and inoculation against varicella Other acute recurrent sinusitis Chronic bilateral low back pain without sciatica documented [facility]* Diagnosis Pre-op evaluation- Primary Primary osteoarthritis of left knee Mild intermittent asthma, unspecified whether complicated Class 1 obesity due to excess calories with serious comorbidity and body mass index (BMI) of 34.0 to 34.9 in adult documented [facility]* Diagnosis Acute postoperative pain of left knee- Primary Osteoarthritis of left knee, unspecified osteoarthritis type documented in this encounter [facility]* Diagnosis Nausea and vomiting, unspecified vomiting type- Primary Acute post-operative pain Hypokalemia Hypopotassemia [facility] Diagnosis Chronic bilateral low back pain without sciatica Anxiety Anxiety state, unspecified documented [facility]* Diagnosis History of total knee arthroplasty, left- Primary Acute postoperative pain of knee [facility]* Diagnosis Anxiety Anxiety state, unspecified [facility]* Attachments The following attachments cannot be sent through Care Everywhere. * Nausea and Vomiting ([place]) * Hypokalemia ([place]) [facility] SystemInstructionsNot on filedocumented in this encounterProMedica [facility] SystemInstructionsNot on filedocumented in this encounterProMedica Health SystemInstructionsNot on filedocumented in this encounterProMedica Health SystemInstructionsNot on filedocumented in this encounterProMedica Health SystemInstructionsNot on filedocumented in this encounterProMedica Health SystemInstructionsNot on filedocumented in this encounterProMedica Health SystemInstructionsNot on filedocumented in this encounterProMedica Health SystemInstructionsNot on filedocumented in this encounterProMedica Health SystemInstructionsNot on filedocumented in this encounterProMedica Health SystemInstructionsNot on filedocumented in this encounterProMedica Health SystemInstructionsNot on filedocumented in this encounterProMedica Health SystemInstructionsNot on filedocumented in this encounterProMedica Health SystemInstructionsNot on filedocumented in this encounterProMedica Health SystemInstructionsNot on filedocumented in this encounterProMedica Health SystemInstructionsNot on filedocumented in this encounterProMedica Health SystemInstructionsNot on filedocumented in this encounterProMedica Health SystemInstructionsNot on filedocumented in this encounterProMedica Health SystemInstructionsNot on filedocumented in this encounterProMedica Health SystemInstructionsNot on filedocumented in this encounterProMedica Health SystemInstructionsNot on filedocumented in this encounterProMedica Health SystemReason for referral (narrative)* Consultation (Routine) - Pending ReviewSpecialtyDiagnoses / ProceduresReferred By Contact Referred To ContactOrthopedic Surgery Diagnoses Primary osteoarthritis of knee, unspecified laterality Jimmie Garcia, DO [address] [facility] [place] [address] Papo Irizarry MD [address] [facility] [address] [place] [address] Referral IDStatusReasonStart DateExpiration DateVisits RequestedVisits [id number] Review Specialty Services Required / Critical access hospital for referral (narrative)* Medication Prior Authorization - Pending ReviewSpecialtyDiagnoses / ProceduresReferred By ContactReferred To Contact Jimmie Garcia DO [address] [facility], [facility] [place] [address] Phone: tel: fax: Referral IDStatusReasonStart DateExpiration DateVisits RequestedVisits [id number] Critical access hospital for visit Narrative* Diagnostic X-Ray (Routine) - Pending ReviewSpecialtyDiagnoses / ProceduresReferred By ContactReferred To Contact Diagnoses Left knee pain, unspecified chronicity Procedures XR KNEE LEFT 4+ VIEWS Joaquín Baez MD [address] [place] [address] Phone: tel: fax: Referral IDStatusReasonStart DateExpiration DateVisits RequestedVisits [id number] Review/ [facility] for visit Narrative* Auth/CertSpecialtyDiagnoses / ProceduresReferred By ContactReferred To Contact Diagnoses Osteoarthritis of left knee, unspecified osteoarthritis type Osteoarthritis of left knee, unspecified osteoarthritis type [M17.12] Procedures CT ARTHRP KNE CONDYLE&PLATU MEDIAL&LAT COMPARTMENTS CT CPTR-ASST SURGICAL NAVIGATION IMAGE-LESS ARTHROPLASTY KNEE TOTAL ASSISTANCE SURGICAL NAVIGATION MUSCULOSKELETAL IMAGELESS ADD-ON PX Joaquín Baez MD [address] [place] [address] Phone: tel: fax: [facility] [address] [place] [address] Referral IDStatusReasonStart DateExpiration DateVisits RequestedVisits [id number] [facility] for visit Narrative* Diagnostic X-Ray (Routine) - New RequestSpecialtyDiagnoses / ProceduresReferred By ContactReferred To Contact Diagnoses History of total knee arthroplasty, left Procedures XR BONE LENGTH STUDY VikramjarrodericЕлена Bessy [address] [place] [address] Phone: tel: fax: Referral IDStatusReasonStart DateExpiration DateVisits RequestedVisits [id number]/ [facility] Summary Purpose Family History No Family History Records FoundNo Family History Records FoundNo Family History Records FoundNo Family History Records FoundNo Family History Records Found Advance Directives Date ActivatedDate YnysvctzvstVdzbcudc24/8/2025 11:42 AMDate ActivatedDate XimpwwxqckaTrclwqqz96/8/2025 11:42 AM Reason for Referral SpecialtyDiagnoses / ProceduresReferred By ContactReferred To Contact Diagnoses Morbid obesity (CMS-HCC) Jimmie Garcia DO [address], [facility] [place] [address] Referral IDStatusReasonStart DateExpiration DateVisits RequestedVisits [id number] / ProceduresReferred By Contact Referred To ContactRadiology Diagnoses Ex-cigarette smoker Procedures CT low dose lung screening (Annual) Jimmie Garcia DO [address], [place] [address] Referral IDStatusReasonStart DateExpiration DateVisits RequestedVisits [id number] Review/ Additional Source Comments INFORMATION SOURCE (unrecogn ized section and content) DATE CREATED AUTHOR 04/02/2022 [facility] DATE CREATED AUTHOR AUTHOR'S ORGANIZ ATION 03/16/2024 [facility] DATE CREATED AUTHOR AUTHOR'S ORGANIZ ATION 11/26/2024 [facility] DATE CREATED AUTHOR AUTHOR'S ORGANIZ ATION 04/03/2025 [facility] DATE CREATED AUTHOR AUTHOR'S ORGANIZ ATION 04/28/2025 [facility] Reason for Visit (unrecogniz ed section and content) ReasonCommentsEmesisX3 weeks, states on prescription weight loss medication. Denies abd painReasonOnset DateCommentsMed [id number] PatientReasonOnset DateCommentsMed Dbhxon5902/24/2024easonCommentsFollow-upNot keeping food down, low potassium, holguin tones in urineReasonOnset DateCommentsMed [id number] RefillReasonCommentsWeight Lossdiscussion ReasonComments3 month f/uReasonCommentsPainSpecialtyDiagnoses / Procedures Referred By ContactReferred To ContactOrthopaedic Surgery / Orthopaedics Diagnoses Primary osteoarthritis of left knee Jimmie Garcia, [address] [facility], [facility] [place] [address] Phone: tel: fax: Joaquín Baez MD [address] [place] [address] Phone: tel: fax: Referral IDStatusReasonStart DateExpiration DateVisits RequestedVisits [id number] Review/[id number] Exam ReasonCommentsPre-op ExamAfter antibiotic- left total kneeReasonCommentsPost-Op Problem Left knee replaced on Saturday. Now vomiting for a couple days and got worse today. Pain in left knee 04/09. ReasonCommentsPost Op VisitReasonOnset DateCommentsMed Rfwmrm9504/27/2025ReasonOnset DateCommentsMed Rbegqd0605/03/2025 Care Teams (unrecognized sec tion and content) Team MemberRelationshipSpecialtyStart DateEnd Date Jimmie Garcia DO [address], [place] [address] PCP - [facility]10/15/23Team MemberRelationshipSpecialtyStart DateEnd Date Jimmie Garcia DO [address], [place] [address] PCP - [facility]10/15/23Team MemberRelationshipSpecialtyStart DateEnd Date MahnazmookieJimmieDO [address], [place] [address] PCP - [facility]10/15/23Team MemberRelationshipSpecialtyStart DateEnd Date MahnazmookieJimmieDO [address], [place] [address] PCP - [facility]10/15/23Team MemberRelationshipSpecialtyStart DateEnd Date MahnazmookieJimmieDO [address], [place] [address] PCP - [facility]10/15/23Team MemberRelationshipSpecialtyStart DateEnd Date RadhaClaudiaJimmie RochelleDO [address], [place] [address] PCP - [facility]10/15/23Team MemberRelationshipSpecialtyStart DateEnd Date Radha Jimmie Byrd DO [address] [place] [address] PCP - GeneralFamily Medicine10/15/23Team MemberRelationshipSpecialtyStart DateEnd Date Radha Jimmie Byrd DO [address], [place] [address] PCP - [facility]10/15/23Team MemberRelationshipSpecialtyStart DateEnd Date Jimmie Garcia DO [address], [place] [address] PCP - [facility]10/15/23Team MemberRelationshipSpecialtyStart DateEnd Date Jimmie Garcia DO [address], [place] [address] [facility]23Team MemberRelationshipSpecialtyStart DateEnd Date Jimmie Garcia DO [address], [place] [address] [facility]/15/23Team MemberRelationshipSpecialtyStart DateEnd Date Jimmie Garcia DO [address], [place] [address] [facility]/15/23Team MemberRelationshipSpecialtyStart DateEnd Date Jimmie Garcia DO [address], [place] [address] PCP - GeneralFamily Medicine10/15/23Team MemberRelationshipSpecialtyStart DateEnd Date MahnazmookieClaudiaJimmie Rochelle [address], [place] [address] [facility]/15/23Team MemberRelationshipSpecialtyStart DateEnd Date Mahnazmookie Jimmie Byrd DO [address], [place] [address] PCP - [facility]10/15/23Team MemberRelationshipSpecialtyStart DateEnd Date MahnazJimmie damico DO [address], [place] [address] PCP - [facility]10/15/23Team MemberRelationshipSpecialtyStart DateEnd Date MahnazJimmie damico DO [address], [place] [address] [facility]10/15/23Team MemberRelationshipSpecialtyStart DateEnd Date Jimmie Garcia DO [address], [place] [address] [facility] [facility]/15/23Team MemberRelationshipSpecialtyStart DateEnd Date Jimmie Garcia DO [address], [place] [address] PCP - GeneralFamily Medicine01/04/25Team MemberRelationshipSpecialtyStart DateEnd Date Jimmie Garcia DO [address], [place] [address] [facility] [facility]01/04/25Team MemberRelationshipSpecialtyStart DateEnd Date Jimmie Garcia DO [address], [place] [address] PCP - [facility]10/15/23Team MemberRelationshipSpecialtyStart DateEnd Date Jimmie Garcia DO [address], [place] [address] PCP - [facility]10/15/23Team MemberRelationshipSpecialtyStart DateEnd Date Jimmie Garcia DO [address], [place] [address] PCP - [facility]10/15/23Team MemberRelationshipSpecialtyStart DateEnd Date Jimmie Garcia DO [address] [place] [address] PCP - [facility]10/15/23Team MemberRelationshipSpecialtyStart DateEnd Date Jimmie Garcia DO [address] [place] [address] PCP - [facility]01/04/25Team MemberRelationshipSpecialtyStart DateEnd Date Jimmie Garcia DO [address] [place] [address] [facility] - [facility]10/15/23Team MemberRelationshipSpecialtyStart DateEnd Date MahnazmookieJimmie [address] [place] [address] PCP - [facility]01/04/25Team MemberRelationshipSpecialtySt[place] DateEnd Date MahnazJimmie damico [address] [place] [address] [facility] - [facility]01/04/25Team MemberRelationshipSpecialtyStokl[place] DateEnd Date Mahnazmookie JimmieDO alfredo [address] [place] [address] [facility] - [facility]01/04/25Team MemberRelationshipSpecialtyStoklahoma city DateEnd Date MahnazmookieClaudiaJimmie DO Rochelle [address] [place] [address] [facility] - [facility]10/15/23 Scheduled Active and Recently Administ ered Medications (unrecognized section and content) Medication Order//01/2025 acetaminophen (TYLENOL) tablet 1,000 mg 1,000 mg, Oral, EVERY 6 HOURS NON-STANDARD, First dose on Sat04/07/25 at 1300, Until Discontinued, Maximum dose of acetaminophen is 4000 mg from all sources in 24 hours., Post-op/Post-Proc * 1450 (Given - Provider: Gayle Osorio RN) * 1900 (Canceled Entry - Provider: System Discharge - Comment: Automatically canceled at discontinue of medication order) apixaban (ELIQUIS) tablet 2.5 mg 2.5 mg, Oral, EVERY 12 HOURS, First dose on Ana 04/08/25 at 0900, Until Discontinued, Start in AM day after surgery, Indications: DVT proph, Post-op/Post-Proc ceFAZolin (ANCEF) 2 g in dextrose 100 mL premix IVPB 2 g, Intravenous, Administer over 30 Minutes, EVERY 8 HOURS NON-STANDARD, 3 doses, First dose on Sat04/07/25 at 1800, Last dose on Sat04/08/25 at 1000, Post-op/Post-Proc * 1810 ($$New Bag$$ - Provider: Aliya Leong, SANTINO) cloNIDine injection 190 mcg(Linked Group 1) 190 mcg (rounded from 192.4 mcg = 2 mcg/kg 96.2 kg Order-specific weight), Infiltration, INTRA-OP ONCE, Starting on Sat04/07/25 at 1012, Until Sat04/07/25 at 2150, Intra-op/Intra-Proc * 1017 (Given - Provider: Violeta Mart RN - Comment: Given by Dr. Baez, intraop.) dexAMETHasone (DECADRON) injection 10 mg (COMPLETED) 10 mg, Intravenous, ONCE, 1 dose, On Sat04/07/25 at 1700, Give dose #2 30 minutes prior to discharge. (dose #1 given pre-operatively by anesthesia), Post-op/Post-Proc * 1810 (Given - Provider: Aliya Leong, SANTINO) dexAMETHasone PF (DECADRON) injection 10 mg 10 mg, Intravenous, INTRA-OP ONCE, Starting on Sat04/07/25 at 1232, Until Sat04/07/25 at 2150, Anesthesia provider to administer at induction., Intra-op/Intra-Proc Docusate (COLACE) capsule 100 mg 100 mg, Oral, 2 TIMES DAILY, First dose on Sat04/07/25 at 1245, Until Discontinued, Post-op/Post-Proc * 1450 (Given - Provider: Gayle Osorio RN) * 1700 (Canceled Entry - Provider: System Discharge - Comment: Automatically canceled at discontinue of medication order) multivitamin tablet 1 tablet 1 tablet, Oral, DAILY, First dose on Ana 04/08/25 at 0900, Until Discontinued, Post-op/Post-Proc total joint mixture (no clonidine) premade bag 1 Bag(Linked Group 1) Intra-articular, INTRA-OP ONCE, Starting on Sat04/07/25 at 1012, Until Sat04/07/25 at 2150, To be mixed by pharmacy. NOT for IV use., Intra-op/Intra-Proc * 1016 (Given - Provider: Violeta Mart RN - Comment: Given by Dr. Baez, intraop.) Medication Order Lactated ringers IV solution Intravenous, at 75 mL/hr, CONTINUOUS, Starting on Sat04/07/25 at 0645, Until Sat04/07/25 at 2150, Pre-op/Pre-Proc * 0707 ($$New Bag$$ - Provider: Shari Hogan RN) * 0930 (Paused - Provider: JESUS Tom - Comment: Switch to gravity) * 0931 (Restarted - Provider: JESUS Tom) * 1011 ($$New Bag$$ - Provider: JESUS Tom) * 1223 (Anesthesia Volume Adjustment - Provider: JESUS Tom) * 2150 (Due: Order Ending - Provider: System Discharge - Comment: [Order ends at this time. Document the following action when infusion is complete: Stopped]) Lactated ringers IV solution Intravenous, at 75 mL/hr, CONTINUOUS, Starting on Sat04/07/25 at 1245, Until Sat04/07/25 at 2150, Convert IV to PRN adapter post op day 1 if adequate oral intake, Post-op/Post-Proc * 1245 (Canceled Entry - Provider: System Discharge - Comment: Automatically canceled at discontinue of medication order) ROPivacaine HCl-NaCl 0.2-0.9 % On-Q pump Jessica-neural, CONTINUOUS, Starting on Sat04/07/25 at 1200, Until Sat04/07/25 at 2150, Recovery to Continue * 1205 ($$New Bag$$ - Provider: Madai Arroyo RN - Comment: UNCLAMMPED AND VERIFIED WITH SANTINO GU) * 2150 (Due: Order Ending - Provider: System Discharge - Comment: [Order ends at this time. Document the following action when infusion is complete: Stopped]) Medication Order10/06/744859//01/2025 acetaminophen (TYLENOL) tablet 1,000 mg (COMPLETED) 1,000 mg, Oral, ONCE DIRECTED, 1 dose, Starting on Sat04/07/25 at 0638, Until Sat04/07/25 at 0705, See admin instructions, Administer 1 hour preop., Pre-op/Pre-Proc * 0705 (Given - Provider: Shari Hogan RN) bisacodyl (DULCOLAX) suppository 10 mg 10 mg, Rectal, DAILY NEEDED, Starting on Sat04/07/25 at 1232, Until Sat04/07/25 at 2150, constipation, Post-op/Post-Proc ceFAZolin (ANCEF) 2 g in dextrose 100 mL premix IVPB (COMPLETED) 2 g, Intravenous, Administer over 15 Minutes, TELECOMMUNICATIONS FIELD 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 TO PROCEDURE, 1 dose, Starting on Sat04/07/25at 0638, Until Sat04/07/25 at 0939, Other, Pre-operative antibiotic, Pre-op/Pre-Proc * 0939 ($$New Bag$$ - Provider: Fiona Love APRN-[facility]) HYDROmorphone (DILAUDID) injection 0.5 mg (COMPLETED) 0.5 mg, Intravenous, EVERY 15 MINUTES NEEDED, 2 doses, Starting on Sat04/07/25 at 1145, Until Sat04/07/25 at 1206, Severe Pain, Recovery * 1151 (Given - Provider: Madai Arroyo RN) * 1206 (Given - Provider: Madai Arroyo RN) HYDROmorphone (DILAUDID) injection 0.5-1 mg 0.5-1 mg, Intravenous, EVERY 4 HOURS NEEDED, Starting on Sat04/07/25 at 1232, Until Sat04/07/25 at 2150, Severe Pain, Post-op/Post-Proc Ondansetron 4mg/2ml (ZOFRAN) injection 4 mg 4 mg, Intravenous, ONCE NEEDED, 1 dose, Starting on Sat04/07/25 at 1145, Until Sat04/07/25 at 2150, Nausea / Vomiting, Recovery Ondansetron 4mg/2ml (ZOFRAN) injection 4 mg 4 mg, Intravenous, EVERY 4 HOURS NEEDED, Starting on Sat04/07/25 at 1232, Until Sat04/07/25 at 2150, Nausea / Vomiting, Post-op/Post-Proc oxyCODONE (ROXICODONE) tablet 5-10 mg 5-10 mg, Oral, EVERY 4 HOURS NEEDED, Starting on Sat04/07/25 at 1232, Until Sat04/07/25 at 2150,moderate-severe pain, If pain unrelieved with oxycodone, contact pharmacist to enter order for Oxycodone ER 10mg PO Q12H for 3 days, Post-op/Post-Proc * 1450 (Given - Provider: Gayle Osorio, SANTINO) * 1810 (Given - Provider: Aliya Leong RN) Promethazine (PHENERGAN) 6.25 mg in Sodium chloride 0.9%, with overfill 60.25 mL (total volume) IVPB 6.25 mg, Intravenous, at 180.8 mL/hr, Administer over 20 Minutes, EVERY 1 HOUR NEEDED, 2 doses, Starting on Sat04/07/25 at 1145, Until Sat04/07/25 at 2150, Other, Nausea and vomiting, Extravasation Risk, Recovery senna-docusate (SENOKOT-S) 8.6-50 MG per tablet 2 tablet 2 tablet, Oral, 2 TIMES DAILY NEEDED, Starting on Sat04/07/25 at 1232, Until Sat04/07/25 at 2150, constipation, Post-op/Post-Proc Sodium chloride 0.9 % irrigation (CANCELED) NEEDED, Starting on Sat04/07/25 at 0957, Until Sat04/07/25 at 1200, Intra-op/Intra-Proc * 0928 (Given - Provider: Cassi Brown, RN - Comment: Given to the sterile field) * 0957 (Given - Provider: Cassi Brown RN - Comment: Attached to irrigation tubing, used intraop.) sodium phosphate w/sodium biphosphate (FLEETS) enema 1 enema 1 enema, Rectal, DAILY NEEDED, Starting on Sat04/07/25 at 1232, Until Sat04/07/25 at 2150, Refractory Constipation, use per package instructions, Post-op/Post-Proc tranexamic acid (LYSTEDA) tablet 1,950 mg (COMPLETED) 1,950 mg, Oral, ONCE DIRECTED, 1 dose, Starting on Sat04/07/25 at 0638, Until Sat04/07/25 at 0705, See admin instructions, Administer 2 hours preop, Pre-op/Pre-Proc * 0705 (Given - Provider: Shari Hogan RN) Order Group 1: total joint mixture (no clonidine) premade bag 1 BagJump to med Intra-articular, INTRA-OP ONCE, Starting on Sat04/07/25 at 1012, Until Sat04/07/25 at 215, To be mixed by pharmacy. NOT for IV use., Intra-op/Intra-Proc And cloNIDine injection 190 mcgJump to med 190 mcg (rounded from 192.4 mcg = 2 mcg/kg 96.2 kg Order-specific weight), Infiltration, INTRA-OP ONCE, Starting on Sat04/07/25 at 1012, Until Sat04/07/25 at 2150, Intra-op/Intra-Proc Medication Order// diphenhydrAMINE (BENADRYL) injection 12.5 mg (COMPLETED) 12.5 mg, Intravenous, ONCE, 1 dose, On 04/17/25 at 0245 * 0211 (Given - Provider: Zofia Davison RN) HYDROmorphone (DILAUDID) injection 1 mg (COMPLETED) 1 mg, Intravenous, ONCE, 1 dose, On 04/17/25 at 0100 * 0049 (Given - Provider: Zofia Davison RN) HYDROmorphone (DILAUDID) injection 1 mg (COMPLETED) 1 mg, Intravenous, ONCE, 1 dose, On 04/17/25 at 0200 * 0126 (Given - Provider: Zofia Davison RN) HYDROmorphone (DILAUDID) injection 1 mg (COMPLETED) 1 mg, Intravenous, ONCE, 1 dose, On 04/17/25 at 0430 * 0402 (Given - Provider: Zofia Davison RN) iohexol (OMNIPAQUE) 350 MG/ML injection 75 mL (COMPLETED) 75 mL, Intravenous, ONCE, 1 dose, On 04/17/25 at 0200, Extravasation Risk., Radiology Procedure * 0149 (Given - Radiology - Provider: Galina Lopez) Ondansetron 4mg/2ml (ZOFRAN) injection 4 mg (COMPLETED) 4 mg, Intravenous, ONCE, 1 dose, On 04/17/25 at 0100 * 0048 (Given - Provider: Zofia Davison RN) Pantoprazole (PROTONIX) injection 40 mg (COMPLETED) 40 mg, Intravenous, ONCE, 1 dose, On 04/17/25 at 0415, Dilute each 40 mg vial with 10 mL of NS.All bolus doses, whether 40 mg or 80 mg, should be administered over at least two minutes., Indications: GERD * 0346 (Given - Provider: Zofia Davison RN) potassium bicarbonate (EFFER-K) effervescent tablet 50 mEq (COMPLETED) 50 mEq, Oral, ONCE, 1 dose, On 04/17/25 at 0415, Effervescent tablet; Must be dissolved in the amount of diluent recommended by the etl lead. Solution should be sipped slowly, over 5-10 minutes. * 0346 (Given - Provider: Zofia Davison RN) potassium chloride 40 mEq in 0.9% sodium chloride 500 ml IVPB (COMPLETED) 40 mEq, Intravenous, at 125 mL/hr, Administer over 4 Hours, ONCE, 1 dose, On 04/17/25 at 0145 * 0214 ($$New Bag$$ - Provider: Zofia Davison RN) * 0347 (Paused - Provider: Zofia Davison RN) * 0358 (Stopped - Provider: Zofia Davison RN) Prochlorperazine (COMPAZINE) injection 10 mg (COMPLETED) 10 mg, Intravenous, ONCE, 1 dose, On 04/17/25 at 0245, For IV route: dilute dose with 10mL normal saline and give by slow IV push at a rate of 5mg/min. Maximum of 40mg/day. * 0212 (Given - Provider: Zofia Davison RN) Sodium chloride 0.9% IV solution 1,000 mL (COMPLETED) 1,000 mL, Intravenous, ONCE, 1 dose, On 04/17/25 at 0145 * 0125 ($$New Bag$$ - Provider: Zofia Davison RN) * 0347 (Stopped - Provider: Zofia Davison RN) Sodium chloride 0.9% IV solution 75 mL (COMPLETED) 75 mL, Intravenous, ONCE, 1 dose, On 04/17/25 at 0200, Radiology Procedure * 0151 ($$New Bag$$ - Provider: Galina Lopez) * 0158 (Stopped - Provider: Zofia Davison RN) FOR RECORDS PERTAINING TO PATIENTS WHO ARE OR HAVE BEEN ENROLLED IN A CHEMICAL DEPENDENCY/SUBSTANCEABUSE PROGRAM, SOME INFORMATION MAY BE OMITTED. This clinical summary was aggregated from multiple sources. Caution should be exercised in using it in the provision of clinical care. This summary normalizes information from multiple sources, and as a consequence, information in this document may materially change the coding, format and clinical context of patient data. In addition, data may be omitted in some cases. CLINICAL DECISIONS SHOULD BE BASED ON THE PRIMARY CLINICAL RECORDS. [facility] [employer] [facility]. provides no warranty or guarantee of the accuracy or completeness of information in this document.
[2025-06-05] MEDS: TIZANIDINE HCL 4 MG TABLET PO ×3 (17:49→21:24)
[2025-06-05] MEDS: ENOXAPARIN SODIUM 40 MG/0.4 ML SYRINGE SUBQ (17:49)
[2025-06-05] MEDS: ACETAMINOPHEN 325 MG TABLET 650 MG PO (18:20)
[2025-06-06] VITALS (22 sets, daily range): BP systolic 85–174; BP diastolic 55–90; PULSE 46–126; TEMP 36.4–36.7; O2SAT 96–100
--- NOTE | 2025-06-06 00:03 | PC.NURSE ---
Patients BP 87/48 with a HR of 44. SPO2 94% on RA and temp 97.6. Provider notified of vitals with no new orders at this time. Will continue to monitor patient, call light with in reach.
[2025-06-06] MEDS: ACETAMINOPHEN 325 MG TABLET 650 MG PO ×3 (02:04→16:40)
[2025-06-06] MEDS: KETOROLAC TROMETHAMINE 30 MG/ML VIAL 15 MG IVP ×3 (04:03→18:42)
[2025-06-06] MEDS: TIZANIDINE HCL 4 MG TABLET PO ×3 (05:06→21:26)
[2025-06-06 06:53] LABS: Hematocrit 33.2 % (36.0-48.0); Hemoglobin 10.9 g/dL (12.0-16.0); Immature Granulocytes Abs Auto 0.01 10^3/uL (0.00-0.03); Immature Granulocytes Pct Auto 0.3 % (0.0-0.5); Lymphocytes Absolute Auto 1.7 10^3/uL (1.2-3.8); Mean Corpuscular HGB Conc 32.8 g/dL (29.9-35.2); Mean Corpuscular Hemoglobin 29.9 pg (26.7-34.0); Mean Corpuscular Volume 91.2 fL (81.0-99.0); Platelet Count 280 10^3/uL (150-450); Red Blood Count 3.64 10^6/uL (4.20-5.40); White Blood Count 4.0 10^3/uL (4.0-11.0)
[2025-06-06 07:37] LABS: Alanine Aminotransferase 9 U/L (14-59); Albumin Globulin Ratio 1.0; Albumin Level 2.8 g/dL (3.4-5.0); Alkaline Phosphatase 106 U/L (46-116); Anion Gap 12.1; Aspartate Amino Transferase 9 U/L (15-37); Blood Urea Nitrogen 6.0 mg/dL (7.0-18.0); Calcium 8.4 mg/dL (8.5-10.1); Carbon Dioxide 22.2 mmol/L (21.0-32.0); Chloride 105 mmol/L (98-107); Estimated GFR (African America >60 (>=60 mL/min/1.73m^2); Estimated GFR (Non-African Ame >60 (>=60 mL/min/1.73m^2); Globulin 2.8 g/dL; Glucose 98 mg/dL (74-106); Lipase 40.0 U/L (16.0-77.0); Magnesium 1.4 mg/dL (1.8-2.4); Potassium 3.3 mmol/L (3.5-5.1); Sodium 136 mmol/L (136-145); Total Protein 5.6 g/dL (6.4-8.2)
--- NOTE | 2025-06-06 08:00 | ECG_ITS ---
The [facility] Test Date: 2025-06-06 Pat Name: LORNE MOORE Department: Room: [facility] Gender: Female [employer]: : 1965 Requested By: [id number] Order Number: [id number] Reading MD: SAMANTHA DUMAS M.D. Measurements Intervals Anton Rate: 59 P: 33 IA: 138 QRS: 20 QRSD: 86 T: 56 QT: 467 QTc: 464 Interpretive Statements SINUS BRADYCARDIA Borderline ECG Compared to ECG 06/05/2025 13:12:23 No significant changes Electronically Signed On 06-06-2025 7:26:43 EST by SAMANTHA DUMAS M.D.
[2025-06-06] MEDS: POTASSIUM CHLORIDE 10 MEQ ER TABLET 40 MEQ PO (09:36)
[2025-06-06] MEDS: PANTOPRAZOLE SODIUM 40 MG TABLET.DR PO (09:36)
[2025-06-06] MEDS: ESCITALOPRAM 10 MG TABLET 20 MG PO (09:36)
[2025-06-06] MEDS: MAGNESIUM SULFATE IN WATER 2 GM/50 ML PREMIX IV (09:50)
[2025-06-06] MEDS: 0.9 % SODIUM CHLORIDE 250 ML 10 ML IV (09:50)
[2025-06-06] MEDS: BUPRENORPHINE HCL/NALOXONE HCL 8-2 MG TABLET SUBL 1 TAB SL ×2 (09:59→23:52)
--- NOTE | 2025-06-06 10:14 | PM.HP ---
HPI H&P: HPI History of Present Illness Chief complaint: NAUSEA VOMITING NARCOTIC WITHDRAWAL Narrative: Mrs. Hightower is a 60-year-old female who came to the emergency room complaining of retching, belching, nausea, 2 episodes of vomiting, feeling that she is going through withdrawal. Patient has been on opiates for the last 20 years for back pain, chronic pain syndrome. Also patient had recently left knee replacement and has been taking Percocet up to 3 to 4 tablets in 24 hours. Patient continues to have pain and discomfort but does not want to take opiates anymore. She decided to stop taking Percocet about 3 days ago. Patient started having nausea followed by vomiting, retching and belching. She related to possible opiates withdrawal. Prior to that, patient tried to take herself off Percocet but was unable to. She was using kratom trying to suppress her opiates craving and withdrawal. She was taking too much of it. Also patient had been feeling depressed and anxious. She saw her primary care doctor who put her on Vraylar. In addition increase her Xanax from 0.5 up to 1 mg twice a day as needed. Patient denies any fever, chills, hematemesis or melena. No abdominal pain. No diarrhea. Opioid HPI Opioid Management Most Recent Pain and Opioid Data: Last Pain Scale 8 Today, 09:35 Last Pain Assessment Today, 08:00 Last MAR Pain Assessment Today, 09:35 Last ORT Total Score 6 06/05/25, 17:43 Last ORT Risk Category Moderate Risk 06/05/25, 17:43 Last COWS Score 4 06/05/25, 23:30 Ur Phencyclidine Scrn, (NEGATIVE) Negative 06/05/25, 14:15 PFSH PFSH Surgical History (Updated 06/05/25 @ 18:06 by Zoey Abraham) History of back surgery ?Z98.890 - Other specified postprocedural states (ICD-10) History of total left knee replacement ?Z96.652 - Presence of left artificial knee joint (ICD-10) H/O gastric bypass ?Z98.84 - Bariatric surgery status (ICD-10) Family History (Updated 06/05/25 @ 18:07 by Zoey Abraham) Father Family history of myocardial infarction Social History Highest level of school completed/degree received: Associate degree: occupational, technical, vocational program Little interest or pleasure in doing things: more than half the days Feeling down, depressed, or hopeless: more than half the days Meds Home Medications and Allergies Home Medications ?Medication ?Instructions ?Recorded ?Confirmed ?Type cholecalciferol (vitamin D3) 1,250 50,000 unit PO QWEEK 03/16/24 06/06/25 History mcg (50,000 unit) capsule escitalopram oxalate 20 mg tablet 20 mg PO QDAY 03/16/24 06/05/25 History tizanidine 4 mg tablet 8 mg PO .qhs muscle spasms 03/16/24 06/06/25 History albuterol 90 mcg/actuation aerosol 90 mcg inhalation Q4H PRN 06/05/25 06/06/25 History inhaler shortness of breath cariprazine 1.5 mg capsule 1.5 mg PO DAILY 06/05/25 06/05/25 History (Vraylar) hydroxyzine HCl 25 mg tablet 25 mg PO Q8H PRN anxiety 06/05/25 06/05/25 History lorazepam 1 mg tablet (Ativan) 1 mg PO Q12H PRN anxiety 06/05/25 06/05/25 History ondansetron 8 mg disintegrating 8 mg PO Q8H PRN nausea and vomiting 06/05/25 06/05/25 History tablet pantoprazole 40 mg tablet,delayed 40 mg PO DAILY 06/05/25 06/05/25 History release pregabalin 50 mg capsule 50 mg PO Q8H 06/05/25 06/05/25 History tizanidine 4 mg tablet (Zanaflex) 4 mg PO Q8H PRN muscle spasticity 06/05/25 06/06/25 History Allergies Allergy/AdvReac Type Severity Reaction Status Date / Time tramadol (From [facility]) Allergy unknown Verified 06/05/25 12:57 Exam Narrative Exam Narrative: [pt is awake and alert. oriented to place, time and person, central obesity HEENT: [place] conjunctiva and NL buccal mucosa Neck: Supple, no tenderness Endocrine: No Thyromegaly. Vascular: No JVD or carotid bruit. Lymphatic: No cervical lymphadenopathy. Chest: CTA no DTP. Heart RRR, no extra sound or murmur. Abd: Soft, no tenderness, no rebound and no rigidity. Increase abd girth therefore clinically I could not exclude the possibility of intra abd mass or organomegaly. LE: No cyanosis or clubbing, no varices or edema. Evidence of recent left knee replacement. Midline surgical scar. No skin opening. No drainage. No erythema. No warmth. Patient is able to flex her knee more than 45 degrees without any major difficulties. Neuro: A A O. Nl speech, comprehension and attention. Nl and symetrical motor and tone examination through out. []] Constitutional Vital Signs, click to edit/add: Last Vital Signs Temp 97.9 F 06/06/25 08:00 Pulse 60 06/06/25 08:07 Resp 18 06/06/25 08:00 BP 110/72 06/06/25 08:00 Pulse Ox 98 06/06/25 08:00 O2 Del Method Room Air 06/06/25 08:00 Results Labs Labs: Short CBC 06/05/25 06/06/25 Range/Units 13:07 05:56 WBC 4.8 4.0 (4.0-11.0) 10^3/uL Hgb 11.9 L 10.9 L (12.0-16.0) g/dL Hct 35.7 L 33.2 L (36.0-48.0) % Plt Count 341 280 (150-450) 10^3/uL BMP 06/05/25 06/06/25 13:07 05:56 Sodium 135 L 136 Potassium 3.7 3.3 L Chloride 102 105 Carbon Dioxide 21.5 22.2 BUN 9.0 6.0 L Creatinine 1.05 H 0.69 Glucose 138 H 98 Calcium 9.1 8.4 L Liver Function 06/05/25 06/06/25 Range/Units 13:07 05:56 Total Bilirubin 0.7 0.7 (0.2-1.0) mg/dL Direct Bilirubin 0.1 (0.0-0.2) mg/dL AST 13 L 9 L (15-37) U/L ALT 12 L 9 L (14-59) U/L Alkaline Phosphatase 118 H 106 (46-116) U/L Albumin 3.2 L 2.8 L (3.4-5.0) g/dL Urine 06/05/25 Range/Units 14:15 Urine Color Yellow (YELLOW) Urine Clarity Clear (CLEAR) Urine pH 5.5 (5.0-9.0) Ur Specific [place] 1.020 (1.005-1.025) Urine Protein Negative (NEG/TRACE) mg/dL Urine Glucose (UA) Negative (NEGATIVE) mg/dL Assessment and Plan Assessment and Plan (1) Narcotic withdrawal: (2) Nausea & vomiting: Plan Suspected opiate withdrawal. Patient has been on opiates for 20 years. She has been using Percocet and kratom recently. Patient stopped taking Percocet 3 days ago. Patient stated that her chronic pain is bad. Patient stated that if she does not take prescribed opiates she will for sure get opiates or any other product from the street. I discussed with patient different options. I discussed with the patient different pharmacological modalities Patient stated that she had gastric bypass in the past and she cannot take morphine or NSAID Patient stated that Tylenol does not help. I talked to patient about Suboxone. She is very interested in trying Suboxone. Hopefully that will help her control her pain and prevent the patient using street drugs I started patient on Suboxone 8 mg twice a day. Hypokalemia and hypomagnesemia Potassium and magnesium supplementation Nausea and vomiting that started after patient stopped Percocet cold turkey Could be related to opiates withdrawal. Her abdomen is benign. Continue symptomatic management hoping that the Suboxone will help improve her GI symptoms. Depression and anxiety. Patient stated that her pain is so bad and cannot live any longer but does not have any suicidal ideation or plan whatsoever. Patient stated that she would never hurt herself. Counseling and education were provided. No active delusion. Anemia, no evidence of acute blood loss. Patient will likely require to have anemia workup to be done in the outpatient setting to be handled by PCP in collaboration with other needed outpatient providers. This may include but not limited to EGD, colonoscopy, referral to see hematology and other needed age-appropriate cancer screening. Chronic, subacute medical conditions not listed above, abnormal labs and imaging, incidental findings seen on labs and or imaging. These would need to be addressed. Could be addressed later on or in the outpatient setting by PCP collaboration with other needed outpatient providers when time and condition are appropriate.
[2025-06-06 11:20] LABS: Thyroid Stimulating Hormone 0.172 uIU/mL (0.358-3.740)
[2025-06-06] MEDS: LORAZEPAM 1 MG TABLET PO (11:47)
[2025-06-06] MEDS: METOCLOPRAMIDE HCL 10 MG/2 ML VIAL 5 MG IVP ×2 (14:10→20:14)
[2025-06-06] MEDS: DICYCLOMINE HCL 10 MG CAPSULE PO ×2 (14:15→21:26)
[2025-06-06] MEDS: PROMETHAZINE HCL 12.5 MG in 0.9 % SODIUM CHLORIDE 50 ML 204 MG IV (16:38)
[2025-06-06] MEDS: ENOXAPARIN SODIUM 40 MG/0.4 ML SYRINGE SUBQ (18:08)
[2025-06-06] MEDS: CEFUROXIME AXETIL 250 MG TABLET 500 MG PO (21:26)
[2025-06-06] MEDS: TEMAZEPAM 15 MG CAPSULE PO (21:27)
--- NOTE | 2025-06-06 22:10 | CT_ITS ---
The [address] [address] Patient Name: LORNE MOORE MRN: [id number] date: 1965 Sex: F Assigned Patient Location: Current Patient Location: Accession/Order Number: [id number] Exam Date: 06/06/2025 05:30 Report Date: 06/07/2025 08:10 At the request of: GERARDO MARTINEZ MD Procedure: CT abdomen pelvis wo con CT ABDOMEN AND PELVIS WITHOUT CONTRAST COMPARISON: None CLINICAL DATA: Vomiting. History of bariatric surgery. Spiral images were obtained through the abdomen and pelvis without contrast. This CT exam was performed using one or more following dose reduction techniques: Automated exposure control, adjustment of the mA and/or kV according to patient size, or use of iterative reconstruction technique. Limited cuts through the lung bases show right middle lobe calcified granuloma. Assessment of the intra-abdominal organs is slightly limited by the absence of contrast. Subtle cholelithiasis is suspected. There is no pericholecystic inflammation. No intrahepatic masses are noted. There are calcified splenic granulomas. The pancreas and adrenal glands show no acute findings. No renal calculi or hydronephrosis are seen. The abdominal aorta is normal caliber. There are small retroperitoneal and mesenteric lymph nodes. No ascites is noted. There are postoperative changes of bariatric surgery. The small bowel loops are not dilated. There is mild air and stool along the colon. Dextroscoliotic curvature and mild degenerative changes are seen at the spine. Images through the pelvis show air and stool at the cecum and mild at the distal colon. No diverticular disease is noted. No dilated small bowel loops are seen. There is calcification within the uterus which may be fibroid disease. There are no dominant adnexal cysts. The urinary bladder is poorly distended for evaluation. No ascites is seen. There is minimal stranding and subcutaneous air within the fat at the upper right pelvic wall. This might relate to medicinal injection and correlation is suggested. CT/CT abdomen pelvis wo con IMPRESSION: SUSPECTED CHOLELITHIASIS. GRANULOMATOUS DISEASE. POSTOPERATIVE CHANGES OF BARIATRIC SURGERY. NO BOWEL OR URINARY TRACT OBSTRUCTION. PROBABLE FIBROID UTERUS. NO ACUTE FINDINGS. Impression dictated by: Annita Hernandez M.D. 06/07/2025 8:10 AM Dictation Location: [place] [address] Electronically authenticated by: [id number] Y Date: 06/07/2025 08:10
[2025-06-06] MEDS: DICYCLOMINE HCL 20 MG/2 ML VIAL IM (23:25)
[2025-06-06] MEDS: DIAZEPAM 10 MG/2 ML SYRINGE 2 MG IV (23:29)
[2025-06-07] VITALS (21 sets, daily range): BP systolic 103–178; BP diastolic 62–94; PULSE 66–142; TEMP 36.6–36.8; O2SAT 92–99
[2025-06-07] MEDS: KETOROLAC TROMETHAMINE 30 MG/ML VIAL 15 MG IVP ×2 (00:52→06:51)
[2025-06-07] MEDS: LORAZEPAM 1 MG TABLET PO (01:24)
[2025-06-07 05:48] LABS: Anion Gap 9.8; Blood Urea Nitrogen 2.0 mg/dL (7.0-18.0); Calcium 8.8 mg/dL (8.5-10.1); Carbon Dioxide 27.0 mmol/L (21.0-32.0); Chloride 106 mmol/L (98-107); Estimated GFR (African America >60 (>=60 mL/min/1.73m^2); Estimated GFR (Non-African Ame >60 (>=60 mL/min/1.73m^2); Glucose 90 mg/dL (74-106); Magnesium 1.6 mg/dL (1.8-2.4); Potassium 3.8 mmol/L (3.5-5.1); Sodium 139 mmol/L (136-145)
[2025-06-07] MEDS: PROMETHAZINE HCL 12.5 MG in 0.9 % SODIUM CHLORIDE 50 ML 204 MG IV (06:25)
[2025-06-07] MEDS: CEFUROXIME AXETIL 250 MG TABLET 500 MG PO ×2 (08:42→21:58)
[2025-06-07] MEDS: BUPRENORPHINE HCL/NALOXONE HCL 8-2 MG TABLET SUBL 1 TAB SL (08:42)
[2025-06-07] MEDS: PANTOPRAZOLE SODIUM 40 MG TABLET.DR PO (08:42)
[2025-06-07] MEDS: ESCITALOPRAM 10 MG TABLET 20 MG PO (08:42)
--- NOTE | 2025-06-07 09:15 | CM.NOTE ---
Rounds made with Dr. Soler, pt continues to c/o pain to knee. Pt also having nausea and vomiting. Dr. Soler discussed with pt plan of care. Pt will be changed to inpatient today, no discharge. Continue adjusting medications for pain and nausea. Dr. Soler will also start IV fluids d/t pt's continued nausea.
--- NOTE | 2025-06-07 09:59 | PC.NURSE ---
06/07/25: URINE CULTURE NEGATIVE FOR GROWTH
[2025-06-07] MEDS: PROCHLORPERAZINE 10 MG/2 ML VIAL 5 MG IV ×2 (10:31→18:50)
--- NOTE | 2025-06-07 10:51 | PM.IMPN1 ---
Progress Note: A&P Assessment and Plan (1) Narcotic withdrawal: (2) Nausea & vomiting: Plan (1) Narcotic withdrawal: (2) Nausea & vomiting: Plan Suspected opiate withdrawal. Patient has been on opiates for 20 years. She has been using Percocet and kratom recently. Patient stopped taking Percocet 3 days ago. Patient stated that her chronic pain is bad. Patient stated that if she does not take prescribed opiates she will for sure get opiates or any other product from the street. I discussed with patient different options. I discussed with the patient different pharmacological modalities Patient stated that she had gastric bypass in the past and she cannot take morphine or NSAID Patient stated that Tylenol does not help. I talked to patient about Suboxone. She is very interested in trying Suboxone. Hopefully that will help her control her pain and prevent the patient using street drugs I started patient on Suboxone 8 mg twice a day. Hypokalemia and hypomagnesemia Potassium and magnesium supplementation Nausea and vomiting that started after patient stopped Percocet cold turkey Could be related to opiates withdrawal. Her abdomen is benign. Continue symptomatic management hoping that the Suboxone will help improve her GI symptoms. Depression and anxiety. Patient stated that her pain is so bad and cannot live any longer but does not have any suicidal ideation or plan whatsoever. Patient stated that she would never hurt herself. Counseling and education were provided. No active delusion. Anemia, no evidence of acute blood loss. Patient will likely require to have anemia workup to be done in the outpatient setting to be handled by PCP in collaboration with other needed outpatient providers. This may include but not limited to EGD, colonoscopy, referral to see hematology and other needed age-appropriate cancer screening 06/07/2025 patient still complaining of pain and nausea and vomiting. States that regimen is still not enough for her pain to be controlled. Had a lengthy discussion with her in regards to the indications/risks/benefits of pain medications. Explained to her that I am trying to find a good balance for her not to be lethargic and not affecting her breathing/respiratory drive. She understands. After thorough discussion, p.o. Tylenol. IV Tylenol. I added Compazine to help with her nausea and vomiting and increase her promethazine to 25 mg every 6 hour as needed. I switched her lorazepam to 1.5 mg every 12 hours as needed to help her with sleeping at night especially. Patient also was increased on her dose of Suboxone to 1.5 films twice daily. Added to fluids LR at 50 mL/h given her extensive nausea and vomiting. Discussed the plan with her in detail. She is in agreement with all this plan and we will follow-up on her closely. Granulomas were found on the spleen as well as in the right lower lobe of the lung. Discussed the findings with the patient stated that could be not of clinical significance however I will reach out to radiology to confirm and discuss that further. Internal Medicine - PN: Subj Subjective Interval history: Patient seen and examined at bedside. Still with pain over her left knee along with extensive nausea and vomiting with retching and belching. States that she cannot keep anything down. States that she cannot sleep the whole night because of the nausea and the pain as well as with her insomnia. States that her Suboxone with this dose is not working yet. She is off Percocet in the last 5 to 7 days. She was accompanied by a family member in the room as well. Denies to me any urea. Her labs showing hypomagnesemia. Otherwise she was a little bit tachycardic and hypertensive likely due to the pain. Saturating 98% on room air. Exam Narrative Exam Narrative: [pt is awake and alert. oriented to place, time and person, central obesity HEENT: [place] conjunctiva and NL buccal mucosa Neck: Supple, no tenderness Endocrine: No Thyromegaly. Vascular: No JVD or carotid bruit. Lymphatic: No cervical lymphadenopathy. Chest: CTA no DTP. Heart RRR, no extra sound or murmur. Abd: Soft, no tenderness, no rebound and no rigidity. No signs of acute abdomen LE: No cyanosis or clubbing, no varices or edema. Left knee does not show signs of infection, warmth, tenderness, or erythema. She does have a midline scar comparable to surgery. No swelling. There is no restricted range of motion. Neuro: A A O. Nl speech, comprehension and attention. Nl and symetrical motor and tone examination through out. Constitutional Vital Signs, click to edit/add: Last Vital Signs Temp 97.9 F 06/07/25 07:50 Pulse 97 H 06/07/25 10:00 Resp 18 06/07/25 07:50 BP 154/88 H 06/07/25 07:50 Pulse Ox 98 06/07/25 07:50 O2 Del Method Room Air 06/07/25 07:50 Internal Medicine - PN: Obj Da Labs Labs: Laboratory Results - last 24 hr 06/06/25 06/07/25 05:56 04:59 Sodium 139 Potassium 3.8 Chloride 106 Carbon Dioxide 27.0 Anion Gap 9.8 BUN 2.0 L Creatinine 0.77 Est GFR ( Amer) >60 Est GFR (Non-Af Amer) >60 BUN/Creatinine Ratio 2.6 Glucose 90 Estimat Average Glucose 111 Hemoglobin A1c 5.5 Calcium 8.8 Magnesium 1.6 L TSH 0.172 L
[2025-06-07 11:13] LABS: Hematocrit 35.1 % (36.0-48.0); Hemoglobin 11.6 g/dL (12.0-16.0); Immature Granulocytes Abs Auto 0.01 10^3/uL (0.00-0.03); Immature Granulocytes Pct Auto 0.2 % (0.0-0.5); Lymphocytes Absolute Auto 2.1 10^3/uL (1.2-3.8); Mean Corpuscular HGB Conc 33.0 g/dL (29.9-35.2); Mean Corpuscular Hemoglobin 30.7 pg (26.7-34.0); Mean Corpuscular Volume 92.9 fL (81.0-99.0); Platelet Count 296 10^3/uL (150-450); Red Blood Count 3.78 10^6/uL (4.20-5.40); White Blood Count 5.1 10^3/uL (4.0-11.0)
[2025-06-07] MEDS: ACETAMINOPHEN 1,000 MG/100 ML PREMIX 400 MG IV ×2 (11:46→18:19)
[2025-06-07] MEDS: DICYCLOMINE HCL 10 MG CAPSULE PO (12:09)
[2025-06-07] MEDS: MAGNESIUM SULFATE IN WATER 2 GM/50 ML PREMIX IV (12:10)
[2025-06-07] MEDS: TIZANIDINE HCL 4 MG TABLET PO ×2 (12:18→21:58)
[2025-06-07] MEDS: HYDRALAZINE HCL 20 MG/ML VIAL 10 MG IVP (12:57)
[2025-06-07] MEDS: LORAZEPAM 2 MG/ML VIAL 1.5 MG IV (14:04)
[2025-06-07] MEDS: ENOXAPARIN SODIUM 40 MG/0.4 ML SYRINGE SUBQ (18:20)
[2025-06-07] MEDS: BUPRENORPHINE HCL/NALOXONE HCL 8-2 MG TABLET SUBL 1.5 TAB SL (21:57)
[2025-06-08] VITALS (20 sets, daily range): BP systolic 113–158; BP diastolic 72–97; PULSE 67–107; TEMP 36.6–36.9; O2SAT 96–98
[2025-06-08] MEDS: ACETAMINOPHEN 1,000 MG/100 ML PREMIX 400 MG IV ×2 (02:38→12:07)
[2025-06-08] MEDS: PROCHLORPERAZINE 10 MG/2 ML VIAL 5 MG IV ×3 (03:13→21:14)
[2025-06-08 05:45] LABS: Hematocrit 37.6 % (36.0-48.0); Hemoglobin 12.1 g/dL (12.0-16.0); Immature Granulocytes Abs Auto 0.01 10^3/uL (0.00-0.03); Immature Granulocytes Pct Auto 0.2 % (0.0-0.5); Lymphocytes Absolute Auto 1.7 10^3/uL (1.2-3.8); Mean Corpuscular HGB Conc 32.2 g/dL (29.9-35.2); Mean Corpuscular Hemoglobin 29.9 pg (26.7-34.0); Mean Corpuscular Volume 92.8 fL (81.0-99.0); Platelet Count 287 10^3/uL (150-450); Red Blood Count 4.05 10^6/uL (4.20-5.40); White Blood Count 5.5 10^3/uL (4.0-11.0)
[2025-06-08 06:10] LABS: Alanine Aminotransferase 16 U/L (14-59); Albumin Globulin Ratio 1.1; Albumin Level 3.4 g/dL (3.4-5.0); Alkaline Phosphatase 126 U/L (46-116); Anion Gap 11.0; Aspartate Amino Transferase 18 U/L (15-37); Blood Urea Nitrogen <1.0 mg/dL (7.0-18.0); Calcium 9.6 mg/dL (8.5-10.1); Carbon Dioxide 28.8 mmol/L (21.0-32.0); Chloride 105 mmol/L (98-107); Estimated GFR (African America >60 (>=60 mL/min/1.73m^2); Estimated GFR (Non-African Ame >60 (>=60 mL/min/1.73m^2); Globulin 3.2 g/dL; Glucose 121 mg/dL (74-106); Magnesium 1.7 mg/dL (1.8-2.4); Potassium 3.8 mmol/L (3.5-5.1); Sodium 141 mmol/L (136-145); Total Protein 6.6 g/dL (6.4-8.2)
[2025-06-08] MEDS: TIZANIDINE HCL 4 MG TABLET PO ×3 (06:26→21:10)
[2025-06-08] MEDS: PANTOPRAZOLE SODIUM 40 MG TABLET.DR PO (08:15)
[2025-06-08] MEDS: ESCITALOPRAM 10 MG TABLET 20 MG PO (08:15)
[2025-06-08] MEDS: CEFUROXIME AXETIL 250 MG TABLET 500 MG PO ×2 (08:15→21:10)
[2025-06-08] MEDS: BUPRENORPHINE HCL/NALOXONE HCL 8-2 MG TABLET SUBL 1.5 TAB SL ×2 (08:15→21:10)
[2025-06-08] MEDS: HYDROXYZINE HCL 25 MG TABLET PO ×2 (08:16→21:14)
--- NOTE | 2025-06-08 09:30 | CM.NOTE ---
Rounds made with Dr. Soler, discussed plan of care with pt. Pt does state her pain is better today and she has been able to tolerate liquids. Dr. Soler will advance diet today, possible discharge 06/09.
[2025-06-08] MEDS: MAGNESIUM SULFATE IN WATER 2 GM/50 ML PREMIX IV (10:50)
--- NOTE | 2025-06-08 12:10 | P.IMPN_ITS ---
Progress Note: A&P Assessment and Plan (1) Narcotic withdrawal: (2) Nausea & vomiting: Plan (1) Narcotic withdrawal: (2) Nausea & vomiting: Plan (1) Narcotic withdrawal: (2) Nausea & vomiting: Plan Suspected opiate withdrawal. Patient has been on opiates for 20 years. She has been using Percocet and kratom recently. Patient stopped taking Percocet 3 days ago. Patient stated that her chronic pain is bad. Patient stated that if she does not take prescribed opiates she will for sure get opiates or any other product from the street. I discussed with patient different options. I discussed with the patient different pharmacological modalities Patient stated that she had gastric bypass in the past and she cannot take morphine or NSAID Patient stated that Tylenol does not help. I talked to patient about Suboxone. She is very interested in trying Suboxone. Hopefully that will help her control her pain and prevent the patient using street drugs I started patient on Suboxone 8 mg twice a day. Hypokalemia and hypomagnesemia Potassium and magnesium supplementation Nausea and vomiting that started after patient stopped Percocet cold turkey Could be related to opiates withdrawal. Her abdomen is benign. Continue symptomatic management hoping that the Suboxone will help improve her GI symptoms. Depression and anxiety. Patient stated that her pain is so bad and cannot live any longer but does not have any suicidal ideation or plan whatsoever. Patient stated that she would never hurt herself. Counseling and education were provided. No active delusion. Anemia, no evidence of acute blood loss. Patient will likely require to have anemia workup to be done in the outpatient setting to be handled by PCP in collaboration with other needed outpatient providers. This may include but not limited to EGD, colonoscopy, referral to see hematology and other needed age-appropriate cancer screening 06/07/2025 patient still complaining of pain and nausea and vomiting. States that regimen is still not enough for her pain to be controlled. Had a lengthy discussion with her in regards to the indications/risks/benefits of pain medications. Explained to her that I am trying to find a good balance for her not to be lethargic and not affecting her breathing/respiratory drive. She understands. After thorough discussion, p.o. Tylenol. IV Tylenol. I added Compazine to help with her nausea and vomiting and increase her promethazine to 25 mg every 6 hour as needed. I switched her lorazepam to 1.5 mg every 12 hours as needed to help her with sleeping at night especially. Patient also was increased on her dose of Suboxone to 1.5 films twice daily. Added to fluids LR at 50 mL/h given her extensive nausea and vomiting. Discussed the plan with her in detail. She is in agreement with all this plan and we will follow-up on her closely. Granulomas were found on the spleen as well as in the right lower lobe of the lung. Discussed the findings with the patient stated that could be not of clinical significance however I will reach out to radiology to confirm and discuss that further. 06/08/2025 patient's pain/nausea/vomiting has significantly improved today. She is happy with the plan that we have. I am continuing her on buprenorphine 1.5 mg sublingual twice daily for now, also continues to be on tizanidine and her lorazepam from home. She is trying clear liquids I advanced a soft diet and we will see how she is doing over the next 24 hours. I will reach out to palliative care as discussed in my previous note so that we can have a pain management outpatient follow-up for her when she leaves the hospital. Also consult oncology given negative MRI disease on her CT on pelvis which I am not sure what significance of that is. Discussed plan with her and she is happy with the plan for now Internal Medicine - PN: Subj Subjective Interval history: Patient seen and examined at bedside today. She states that feels more comfortable than yesterday. She states that the pain is much better today. She had a better sleep last night as well no fever no chills. She will try to eat today she was started on clear liquids this morning. Exam Narrative Exam Narrative: pt is awake and alert. oriented to place, time and person, central obesity patient is not in pain compared to yesterday. She is lying in bed very pleasant and cooperative HEENT: [place] conjunctiva and NL buccal mucosa Neck: Supple, no tenderness Endocrine: No Thyromegaly. Vascular: No JVD or carotid bruit. Lymphatic: No cervical lymphadenopathy. Chest: CTA no DTP. Heart RRR, no extra sound or murmur. Abd: Soft, no tenderness, no rebound and no rigidity. No signs of acute abdomen LE: No cyanosis or clubbing, no varices or edema. Left knee does not show signs of infection, warmth, tenderness, or erythema. She does have a midline scar comparable to surgery. No swelling. There is no restricted range of motion. Neuro: A A O. Nl speech, comprehension and attention. Nl and symetrical motor and tone examination through out. Constitutional Vital Signs, click to edit/add: Last Vital Signs Temp 97.9 F 06/08/25 11:26 Pulse 79 06/08/25 12:00 Resp 18 06/08/25 11:26 BP 150/84 H 06/08/25 11:26 Pulse Ox 98 06/08/25 11:26 O2 Del Method Room Air 06/08/25 11:26 Internal Medicine - PN: Obj Da Labs Labs: Laboratory Results - last 24 hr 06/08/25 04:55 WBC 5.5 RBC 4.05 L Hgb 12.1 Hct 37.6 MCV 92.8 MCH 29.9 MCHC 32.2 RDW 15.2 H Plt Count 287 MPV 11.0 Neut % (Auto) 52.9 Lymph % (Auto) 30.1 [place] % (Auto) 12.2 H Eos % (Auto) 3.5 Baso % (Auto) 1.1 Neut # (Auto) 2.9 Lymph # (Auto) 1.7 [place] # (Auto) 0.7 Eos # (Auto) 0.2 Baso # (Auto) 0.1 Abs Immat Gran (auto) 0.01 Imm/Tot Granulo (auto) 0.2 Sodium 141 Potassium 3.8 Chloride 105 Carbon Dioxide 28.8 Anion Gap 11.0 BUN <1.0 L Creatinine 0.63 Est GFR ( Amer) >60 Est GFR (Non-Af Amer) >60 BUN/Creatinine Ratio 1.6 Glucose 121 H Calcium 9.6 Magnesium 1.7 L Total Bilirubin 0.7 AST 18 ALT 16 Alkaline Phosphatase 126 H Total Protein 6.6 Albumin 3.4 Globulin 3.2 Albumin/Globulin Ratio 1.1
[2025-06-08] MEDS: POLYETHYLENE GLYCOL 3350 17 GM POWDER PACKET PO (14:32)
[2025-06-08] MEDS: LORAZEPAM 1 MG TABLET PO (14:32)
--- OUTSIDE RECORDS SUMMARY | 2025-06-08 16:09 | XMS_ITS | CCD ---
Author Organization [facility] Inform ion Partnership [facility] CliniSyfl Care Team Providers Care Insulation Board Back Tender Name Role Phone DEDE FALLON Referring Unavailable TYSON HOLLAND Primary Care Unavailable DEDE FALLON Referring Unavailable DEDE FALLON Primary Care Unavailable Unavailable Primary Care Provider Unavailphill e Jimmie Garcia DO Primary Care Provider Jimmie Garcia DO Primary Care Provider Rakan FULLER, Keila Mathews Attending Unav ailable Radha EMERSON Jimmie Jim Primary Care Mehran Holland MD, Tyson Dow Primary Care Unavailable Rakan GROSSMAN-EDI, Keila Mathews Attending Madi Hampton MD, Manpreet Álvarez Attending Mehran lableonor [facility] DO Jimmie Jim Primary Care Mehran FULLER, Keila Mathews Attending Unav ailable [facility] Mehran Holland MD, Tyson Dow Primary Care Unavailable Rakan GROSSMAN-EDI, Keila Mathews Attending Madi Holland MD, Tyson Dow Primary Care Unavailable Rakan FULLER, Keila Mathews Attending Madi shuklaable Rakan FULLER, Keila Mathews Attending Unav ailable Mahnazng DO Jimmie Jim Primary Care Mehran labJimmie Walker DO Primary Care Provider Provider, None Primary Care Unavailable Provider, None Primary Care Unavailable Provider, None Primary Care Unavailable Jimmie Garcia DO Primary Care Provider [phone] CLAUDIA GARCIANIS Primary Care Unavailable RADHA JIMMIE [...] (1 source)Seasonal allergyPropensity to adverse reactions to toerwktnp46-61-1655 [facility] (20 sources)traMADolDrug Iptoblv64-48-3959Cgzes, Itching, Anaphylaxis, Rash [facility] (1 source)traMADolDrug Qiswwwi07-33-6180GxeiWBFVCU Medical Center (7 sources)Peanut-Containing Drug ProductsPropensity to adverse reactions to hntg70-40-9784GrfrejzosvhMAIInova [facility] (20 sources)tree nut, unspecifiedPropensity to adverse reactions to drug 96-57-7705PiloggmrwicNssXgsbfaJewish [facility] Hospital (20 sources)peanut allergenic extractDrug Bcplnot59-13-8161RhchrdmbykqPeuCuxqhr Health System Work Phone: (20 sources)PollenPropensity to adverse reactions to diyo86-96-8967PvakfxfFlorida Medical Center (1 source)Nuts (not including peanuts); Translations: [Nuts]Propensity to adverse reactions to food (disorder)[facility] (1 source)Seasonal allergy; Translations: [seasonal allergies]Propensity to adverse reactions (disorder)[facility] (1 source)traMADol; Translations: [Ultram]Drug AllergyK[facility] (6 sources)redtop grass pollen extractDrug Plwbrqb57-24-5829HwsembwOimoh Health System (6 sources)Eleele MealPropensity to adverse reactions to cokb00-77-3600 [facility] Medications Current Medications MedicationDrug Class(es)DatesSig (Normalized)Sig (Original)acetaminophen 325 mg oral tablet (10 sources)Start: 38-00-9677kpvw 2 tablets by mouth every four hours as needed Acetaminophen 325 MG tablet Take 2 tablets by mouth every 4 hours as needed for Mild Pain. 50 tablet 1 04/07/2025 ActiveStart: 04-07-2025 End: 65-21-4135fent 1 tablet by mouth every six hours1,000 mg, Oral, EVERY 6 HOURS NON-STANDARD, First dose on Sat04/07/25 at 1300, Until Discontinued, M aximum dose of acetaminophen is 4000 mg from all sources in 24 hours., Post-op/Post-ProcStart: 78-54-7155hval 1 dose by mouth every hour1,000 mg, [...] oral tablet (20 sources)Opioid AgonistStart: 04-19-2025 End: 79-48-1366zmbi 1 tablet by mouth once daily as neededhydroCODone- acetaminophen 5-325 MG tablet Indications: Acute postoperative pain of knee Take 1-2 tablets by mouth every 8 hours as needed for up to 7 days. Do not take over 4000mg acetaminophen daily. 30 tablet 04/27/2025 05/04/2025 ActiveStart: 08-17-2024 End: 22-26-3971pbja 1 tablet by mouth three times daily as neededHYDROcodone- acetaminophen (NORCO) 5-325 mg per tablet TAKE 1 TABLET BY MOUTH 3 TIMES A DAY NEEDED FOR PAINMUST LAST 30 DAYS 08/17/2024 12/03/2024 Discontinued (Therapy completed)Start: 09-18-2023 End: 35-81-3569OEAPUdrhgej-acetaminophen (NORCO) 5-325 mg per tablet 09/18/2023 03/19/2024 Discontinued (Therapy completed)take 1 tablet by mouth every six hours as neededHYDROcodone-acetaminophen (NORCO) 5-325 MG per tablet Take 1 tablet by mouth every 6 hours as needed. [id number] 200 actuat albuterol 0.09 mg/actuat metered dose inhaler (12 sources)beta2-Adrenergic AgonistStart: 65-95-4235qlcy 2 puff(s) by inhalation every six hours as needed for wheezingalbuterol sulfate HFA (PROVENTIL;VENTOLIN;PROAIR) 108 (90 Base) MCG/ACT inhaler Indications: Mild in termittent asthma, unspecified whether complicated INHALE 2 PUFFS INTO THE LUNGSEVERY 6 HOURS NEEDED FOR WHEEZING 18 g 07/11/2022 Activealbuterol (PROVENTIL HFA;VENTOLIN HFA) 90 mcg/actuation inhaler Inhale 2 puffs. Active amoxicillin 500 mg oral capsule (7 sources)Penicillin-class AntibacterialStart: 04-27-2025 End: 42-59-1738Teszcoqyncv 500 MG capsule Take 4 capsules 1 hour before procedure 8 capsule 1 04/27/2025 04/27/2026 ActiveStart: 03-15-2025 End: 37-90-7308udsg 1 capsule by mouth three times dailyamoxicillin (AMOXIL) 500 mg capsule Take 1 capsule (500 mg total) by mouth 3 (three) times a day for 7 days. 21 capsule 03/15/2025 03/22/2025 ActiveStart: 04-07-2024 End: 80-57-6948lypv 1 tablet by mouth onceamoxicillin (AMOXIL) 875 mg tablet Take 1 tablet (875 mg total) by mouth every 12 (twelve) hours for 7 days. 14 tablet 04/07/2024 04/14/2024 Activeapixaban 2.5 mg oral tablet (5 sources)Factor Xa InhibitorStart: 04-08-2025 End: 69-72-6237raqw 2.5 mg by mouth every twelve hours in the morning2.5 mg, Oral, EVERY 12 HOURS, First dose on Ana 04/08/25 at 0900, Until Discontinued, Start in AM day after surgery, Indications: DVT proph, Post-op/Post-ProcStart: 04-07-2025 End: 27-08-1669unfe 1 tablet by mouth every twelve hoursapixaban (Eliquis) 2.5 MG tablet Take 1 tablet by mouth every 12 hours. 70 tablet 04/07/2025 05/12/2025 Activeascorbic acid 60 mg / beta carotene 5000 unt / copper sulfate 40 mg / dl- alpha tocopheryl acetate 30 unt / sodium selenite 0.04 mg / zinc oxide 40 mg oral tablet (4 sources)Vitamin CStart: 99-45-9070kdkp 1 tablet by mouth once dailyMultiple Vitamin (Multivitamin Adult) tablet Take 1 tablet by mouth daily. 30 tablet 04/07/2025 Activecephalexin 500 mg oral capsule (1 source)Cephalosporin AntibacterialStart: 04-07-2025 End: 73-34-7436fian 1 capsule by mouth every six hourscephALEXin 500 MG capsule Take 1 capsule by mouth every 6 hours for 1 dose. Take 6 hours after lastdose given. 1 capsule 04/07/2025 04/08/2025 Activecholecalciferol 1.25 mg oral capsule (20 sources)Vitamin DStart: 28-37-2418rpou 1 capsule by mouth every week cholecalciferol (VITAMIN D3) 50,000 units capsule TAKE 1 CAPSULE BY MOUTH ONCE A WEEK 12 capsule 1 11/15/2024 ActiveStart: 08-22-2023 End: 01-52-9461kteunsebpacjbjo (VITAMIN D3) 50,000 units capsule 08/22/2023 03/19/2024 Discontinued (Therapy completed)docusate sodium 100 mg oral capsule (5 sources)Start: 04-07-2025 End: 53-43-0279mlmo 1 capsule by mouth twice dailyDocusate 100 MG capsule Take 1 capsule by mouth 2 times daily. 60 capsule 04/07/2025 [id number] 0.3 ml EPINEPHrine 1 mg/ml auto-injector (12 sources)alpha-Adrenergic Agonist, beta-Adrenergic Agonist, Catecholamine EPINEPHrine (EPIPEN) 0.3 mg/0.3 mL auto-injector Inject 0.3 mL (0.3 mg total) into the appropriate muscle. ActiveEPINEPHrine 0.3 MG/0.3ML Solution Auto- injector injection Inject 0.3 mL intramuscularly. Activeescitalopram 20 mg oral tablet (20 sources)Serotonin Reuptake InhibitorStart: 08-12-2024 End: 60-36-9748pmln 1 tablet by mouth in the morningescitalopram (LEXAPRO) 20 mg tablet Take 1 tablet (20 mg total) by mouth in the morning. 90 tablet 1 05/03/2025 ActiveStart: 08-22-2023 End: 61-66-5679vyqc 1 tablet by mouth once daily in [...] hydrochloride 25 mg oral tablet (20 sources)AntihistamineStart: 43-13-7907lnuj 1 tablet by mouth every eight hours as neededhydrOXYzine (ATARAX) 25 mg tablet Take 1 tablet (25 mg total) by mouth every 8 (eight) hours as needed for itching. 30 tablet 1 04/29/2025 Active Start: 03-25-2024 End: 47-42-1580kgpi 1 tablet by mouth three times daily as neededhydrOXYzine (ATARAX) 25 mg tablet TAKE 1 TABLET BY MOUTH THREE TIMES DAILY NEEDED FOR ITCHING ORANXTIETY 02/09/2025 04/27/2025 Discontinued (Reorder)Start: 02-26-2023 End: 63-93-8810vfbpGYCoowh (VISTARIL) 25 mg capsule 08/21/2023 ActiveLORazepam 0.5 mg oral tablet (20 sources)BenzodiazepineStart: 12-03-2024 End: 23-92-4670sitk 1 tablet by mouth twice daily as needed for anxietyLORazepam (ATIVAN) 0.5 mg tablet Indications: Anxiety Take 1 tablet (0.5 mg total) by mouth 2 (two)times a day as needed for anxiety. 30 tablet 04/26/2025 ActiveMisc Natural Products (TURMERIC, CURCUMIN, PO) (4 sources)Misc Natural Products (TURMERIC, CURCUMIN, PO) Take by mouth daily. Activemultivitamin tablet 1 tablet (1 source)Start: 04-08-2025 End: 62-07-5424ykta 1 tablet by mouth once daily1 tablet, Oral, DAILY, First dose on Ana 04/08/25 at 0900, Until Discontinued, Post-op/Post-Procnaloxone hydrochloride 40 mg/ml nasal spray (4 sources)Opioid AntagonistStart: 04-07-2025 End: 17-62-0323afrjslsi 4 MG/0.1ML 1 spray by Nasal route once for 1 dose. [place] into the nose as directed. Call 911. If no response in 2 minutes use a new nasal spray in other nostril. Repeat until help arrives. 1Each 04/07/2025 Active omeprazole 20 mg delayed release oral capsule (4 sources)Proton Pump InhibitorStart: 25-07-1381rhpv 1 capsule by mouth once dailyomeprazole [address] capsule Take 1 capsule by mouth daily. 30 capsule 04/07/2025 Activeondansetron 4 mg oral tablet (20 sources)Serotonin-3 Receptor AntagonistStart: 04-17-2025 End: mg, Intravenous, ONCE, 1 dose, On 04/17/25 at 0100Start: 04-07-2025 End: 34-02-9129gwrr 1 tablet by mouth every eight hours as neededOndansetron 4 MG tablet Take 1 tablet by mouth every 8 hours as needed for Nausea / Vomiting or Nausea for up to 3 days. 10 tablet 04/07/2025 04/10/2025 ActiveStart: 04-07-2025 End: 48-78-0896vqgv 4 mg intravenously every four hours as needed4 mg, Intravenous, EVERY 4 HOURS NEEDED, Starting on Sat04/07/25 at 1232, Until Sat04/07/25 at 2150, Nausea / Vomiting, Post-op/Post-ProcStart: 04-07-2025 End: mg, Intravenous, ONCE NEEDED, 1 dose, Starting on Sat04/07/25 at 1145, Until Sat04/07/25 at 2150, Nausea / Vomiting, RecoveryStart: 63-24-4619lgau 1 tablet by mouth every eight hours as needed for nausea and vomitingondansetron ODT (ZOFRAN ODT) 8 mg disintegrating tablet Dissolve 1 tablet (8 mg total) on tongue every 8 (eight) hours as needed for nausea or vomiting. 20 tablet 1 12/15/2024 ActiveStart: 02-10-2024 End: 44-56-1797qqfw 1 tablet by mouth every eight hours as needed for nausea and vomitingondansetron ODT (ZOFRAN ODT) 8 mg disintegrating tablet Dissolve 1 tablet (8 mg total) on tongue every 8 (eight) hours as needed for nausea or vomiting. 90 tablet 02/24/2024 03/19/2024 Discontinued (Therapy completed) oxyCODONE hydrochloride 5 mg oral tablet (5 sources)Opioid AgonistStart: 04-07-2025 End: 89-65-4997bifGPURJD 5 MG tablet Indications: Acute postoperative pain of knee 5-10 mg every 6 hours as neededfor moderate to severe pain Ween as tolerated 30 tablet 04/12/2025 ActiveStart: 04-07-2025 End: 52-02-5231yrba 5-10 mg by mouth every four hours as needed5-10 mg, Oral, EVERY 4 HOURS NEEDED, Starting on Sat04/07/25 at 1232, Until Sat04/07/25 at 2150,moderate-severe pain, If pain unrelieved with oxycodone, contact pharmacist to enter order for Oxycodone ER 10mg PO Q12H for 3 days, Post-op/Post-Proc pantoprazole 40 mg delayed release oral tablet (20 sources)Proton Pump InhibitorStart: 04-17-2025 End: 02-61-013057 mg, Intravenous, ONCE, 1 dose, On 04/17/25 at 0415, Dilute each 40 mg vial with 10 mL of NS.All bolus doses, whether 40 mg or 80 mg, should be administered over at least two minutes., Indications: GERDStart: 95-59-2315dgje 1 tablet by mouth once daily before breakfastpantoprazole (PROTONIX) 40 mg EC tablet Take 1 tablet (40 mg total) by mouth every morning before breakfast. 06/18/2024 ActiveStart: 08-22-2023 End: 75-38-0974ktda 1 tablet by mouth once daily before breakfastpantoprazole (PROTONIX) 40 mg EC tablet Take 1 tablet (40 mg total) by mouth every morning before breakfast. 90 tablet 1 02/24/2024 03/19/2024 Discontinued (Therapy completed)microencapsulated potassium chloride 20 meq extended release oral tablet (4 sources)Start: 04-17-2025 End: 01-28-9413zqed 1 tablet by mouth twice daily at mealtimePotassium chloride 20 MEQ Tab CR tablet Take 1 tablet by mouth 2 times daily with meals for 3 days. 6 tablet 04/17/2025 ActivepredniSONE 20 mg oral tablet (2 sources)Start: 03-25-2025 End: 85-47-5077okps 1 tablet by mouth in the morning, then take 1 tablet by mouth at bedtimepredniSONE (DELTASONE) 20 mg tablet Take 1 tablet (20 mg total) by mouth in the morning and 1 tablet (20 mg total) before bedtime. Do all this for 5 days. 10 tablet 03/25/2025 03/30/2025 ActiveStart: 09-01-2024 End: 22-06-4381qeky 1 tablet by mouth three times dailypredniSONE (DELTASONE) 20 mg tablet Take 1 tablet (20 mg total) by mouth 3 (three) times a day for 5 days. 15 tablet 09/01/2024 09/06/2024 Activepregabalin 50 mg oral capsule (20 sources)Start: 06-29-2024 End: 60-44-4956mglk 1 capsule by mouth three times dailypregabalin (LYRICA) 50 mg capsule Indications: Chronic bilateral low back pain without sciatica Take 1 capsule (50 mg total) by mouth 3 (three) times a day. 90 capsule 04/26/2025 ActiveStart: 02-13-2021 End: 20-17-7668fomauatakq (LYRICA) 50 mg capsule 09/13/2023 03/19/2024 Discontinued (Therapy completed)promethazine hydrochloride 25 mg oral tablet (14 sources)PhenothiazineStart: 12-16-2023 End: 34-89-0789tsrx 1 tablet by mouth every six hours as neededPromethazine 25 MG tablet Take 1 tablet by mouth every 6 hours as needed (Nausea/Vomiting). 10 tablet 1 04/17/2025 Activesemaglutide, weight loss, (WEGOVY) 1 mg/0.5 mL pen injector (20 sources)Start: 76-80-2074ptlwjzzsgbn, weight loss, (WEGOVY) 1 mg/0.5 mL pen injector Indications: Class 1 obesity due to excess calories with serious comorbidity and body mass index (BMI) of 34.0 to 34.9 in adult Inject 0.5 mL (1 mg total) under the skin every 7 days. 2 mL 2 12/03/2024 ActiveStart: 11-11-2024 End: 72-46-3390vmasltsvden, weight loss, (WEGOVY) 1 mg/0.5 mL pen injector Inject 0.5 mL (1 mg total) under the skin every 7 days. 2 mL 2 11/11/2024 12/03/2024 Discontinued (Reorder)Start: 64-59-6546insywhdzxdy, weight loss, (WEGOVY) 1 mg/0.5 mL pen injector Inject 0.5 mL (1 mg total) under the skin every 7 days. 2 mL 2 11/11/2024 ActiveStart: 11-12-2023 End: 63-92-2148uhoutvswlou, weight loss, (WEGOVY) 1 mg/0.5 mL pen injector Indications: Class 2 severe obesity dueto excess calories with serious comorbidity and body mass index (BMI) of 39.0 to 39.9 in adult ([facility]) Inject 0.5 mL (1 mg total) under the skin every 7 days. 2 mL 1 11/12/2023 01/14/2024 Discontinued (Dose adjustment)Start: 38-99-5575rfuttihwxth, weight loss, (WEGOVY) 1 mg/0.5 mL pen injector Indications: Class 2 severe obesity dueto excess calories with serious comorbidity and body mass index (BMI) of 39.0 to 39.9 in adult ([facility]) Inject 0.5 mL (1 mg total) under the skin every 7 days. 2 mL 1 11/12/2023 ActiveSemaglutide,0.25 or 0.5MG/DOS, 2 MG/3ML Solution Pen-injector (4 sources)inject 0.5 mg by subcutaneous injection every weekSemaglutide,0.25 or 0.5MG/DOS, 2 MG/3ML Solution Pen-injector Inject under the skin once a week. ActiveSemaglutide-Weight Management (WEGOVY) 0.25 MG/0.5ML SOAJ SC injection (1 source)Start: 57-39-8868Fluqmnrmhdp-Weight Management (WEGOVY) 0.25 MG/0.5ML SOAJ SC injection Indications: BMI 40.0-44.9, adult ([facility]) Inject 0.25 mg into the skin every 7 days 2 mL 09/18/2023 ActiveSemaglutide-Weight Management (WEGOVY) 0.5 MG/0.5ML SOAJ SC injection (1 source)Start: 12-06-3985Dtmatxqksdw-Weight Management (WEGOVY) 0.5 MG/0.5ML SOAJ SC injection Indications: BMI 40.0-44.9, adult (HCC) , Class 3 severe obesity due to excess calories with body mass index (BMI) of 40.0 to 44.9 in adult, unspecified whether serious comorbidity present ([facility]) Inject 0.5 mg into the skin every 7 days 2 mL 10/03/2023 ActivetiZANidine 4 mg oral tablet (20 sources)Central alpha-2 Adrenergic AgonistStart: 25-57-5573pdja 1 tablet by mouth every four hours as neededtiZANidine (ZANAFLEX) 4 mg tablet Take 1 tablet (4 mg total) by mouth every 4 (four) hours as needed for muscle spasms. 120 tablet 1 04/12/2025 ActiveStart: 05-12-2024 End: 57-50-2866nkzq 1 tablet by mouth every eight hours [...] 90 tablet 1 11/12/2023 ActiveStart: 08-29-2023 End: 46-02-3661anhc 1 tablet by mouth every eight hours as neededtiZANidine (ZANAFLEX) 4 mg tablet Take 1 tablet (4 mg total) by mouth every 8 (eight) hours as needed for muscle spasms. 270 tablet 02/24/2024 03/19/2024 Discontinued (Therapy completed) Completed/Discontinued Medications MedicationDrug Class(es)DatesSig (Normalized)Sig (Original)bisacodyl 10 mg rectal suppository (1 source)Stimulant LaxativeStart: 04-07-2025 End: 19-35-9876zzhs 10 mg rectal route once daily as needed for ybefvfeyagir81 mg, Rectal, DAILY NEEDED, Starting on Sat04/07/25 at 1232, Until Sat04/07/25 at 2150, constipation, Post-op/Post-Proccalcium chloride 0.0014 meq/ml / potassium chloride 0.004 meq/ml / sodium chloride 0.103 meq/ml / sodium lactate 0.028 meq/ml injectable solution (2 sources)Start: 04-07-2025 End: 76-27-3700Szildonofhu, at 75 mL/hr, CONTINUOUS, Starting on Sat04/07/25 at 1245, Until Sat04/07/25 at 2150, Convert IV to PRN adapter post op day 1 if adequate oral intake, Post-op/Post-ProcceFAZolin 2000 mg injection (1 source)Cephalosporin AntibacterialStart: 04-07-2025 End: 37-73-0071ixzk 2 g intravenously every eight hours2 g, Intravenous, Administer over 30 Minutes, EVERY 8 HOURS NON-STANDARD, 3 doses, First dose on Sat04/07/25 at 1800, Last dose on Sat04/08/25 at 1000, Post-op/Post-Proc1 ml dexamethasone phosphate 10 mg/ml injection (2 sources)CorticosteroidStart: 04-07-2025 End: 09-49-645515 mg, Intravenous, ONCE, 1 dose, On Sat04/07/25 at 1700, Give dose #2 30 minutes prior to discharge. (dose #1 given pre-operatively by anesthesia), Post-op/Post-ProcStart: 04-07-2025 End: 66-43-5401jdeo 10 mg intravenously once10 mg, Intravenous, INTRA-OP ONCE, Starting on Sat04/07/25 at 1232, Until Sat04/07/25 at 2150, Anesthesia provider to administer at induction., Intra-op/Intra-Proc1 ml diphenhydrAMINE hydrochloride 50 mg/ml cartridge (1 source)Histamine-1 Receptor AntagonistStart: 04-17-2025 End: 60-07-398008.5 mg, Intravenous, ONCE, 1 dose, On 04/17/25 at 0245 docusate sodium 50 mg / sennosides, nursing home 8.6 mg oral tablet (1 source)Start: 04-07-2025 End: 25-85-2514qrob 2 tablets by mouth twice daily as needed for constipation2 tablet, Oral, 2 TIMES DAILY NEEDED, Starting on Sat04/07/25 at 1232, Until Sat04/07/25 at 2150, constipation, Post-op/Post-Proc1 ml HYDROmorphone hydrochloride 1 mg/ml cartridge (5 sources)Opioid AgonistStart: 04-17-2025 End: mg, Intravenous, ONCE, 1 dose, On 04/17/25 at 0200Start: 04-07-2025 End: 87-84-5633nuxb 0.5-1 mg intravenously every four hours as needed0.5-1 mg, Intravenous, EVERY 4 HOURS NEEDED, Starting on Sat04/07/25 at 1232, Until Sat04/07/25 at 2150, Severe Pain, Post-op/Post-ProcStart: 04-07-2025 End: 50.5 mg, Intravenous, EVERY 15 MINUTES NEEDED, 2 doses, Starting on Sat04/07/25 at 1145, Until Sat04/07/25 at 1206, Severe Pain, Recoveryibuprofen 600 mg oral tablet (3 sources)Nonsteroidal Anti-inflammatory Drug End: 80-66-2947mhpl 1 tablet by mouth every six hoursIbuprofen 600 MG tablet Take 1 tablet by mouth every 6 hours. 04/07/2025 Discontinued (Therapy compl eted)iohexol (OMNIPAQUE) 350 MG/ML injection 75 mL (1 source)Start: 04-17-2025 End: mL, Intravenous, ONCE, 1 dose, On 04/17/25 at 0200, Extravasation Risk., Radiology Proceduremetoclopramide 5 mg oral tablet (14 sources)Dopamine-2 Receptor AntagonistStart: 03-19-2024 End: 36-93-4298tetjukqiacwaqr (REGLAN) 5 mg tablet Take 1 tablet [...] the amount of diluent recommended by the accounting/finance tutor. Solution should be sipped slowly, over 5-10 minutes.Potassium Chloride / Sodium Chloride (1 source)Start: 04-17-2025 End: 51-27-933760 mEq, Intravenous, at 125 mL/hr, Administer over 4 Hours, ONCE, 1 dose, On 04/17/25 at 0145prochlorperazine 5 mg/ml injectable solution (1 source)PhenothiazineStart: 04-17-2025 End: 04-10-711208 mg, Intravenous, ONCE, 1 dose, On 04/17/25 at 0245, For IV route: dilute dose with 10mL normal saline and give by slow IV push at a rate of 5mg/min. Maximum of 40mg/day.Promethazine (PHENERGAN) 6.25 mg in Sodium chloride 0.9%, with overfill 60.25 mL (total volume) IVPB (1 source)Start: 04-07-2025 End: 12-75-8324lisd 6.25 mg intravenously every hour as needed6.25 mg, Intravenous, at 180.8 mL/hr, Administer over 20 Minutes, EVERY 1 HOUR NEEDED, 2 doses, Starting on Sat04/07/25 at 1145, Until Sat04/07/25 at 2150, Other, Nausea and vomiting, Extravasation Risk, RecoveryROPivacaine HCl-NaCl 0.2-0.9 % On-Q pump (1 source)Start: 04-07-2025 End: 59-16-1233Frfo-neural, CONTINUOUS, Starting on Sat04/07/25 at 1200, Until Sat04/07/25 at 2150, Recovery to Continuesemaglutide, weight loss, (WEGOVY) 0.25 mg/0.5 mL pen injector (3 sources)Start: 08-31-2024 End: 66-00-8496wwjpuzmptes, weight loss, (WEGOVY) 0.25 mg/0.5 mL pen injector Indications: Class 1 obesity due to excess calories with serious comorbidity and body mass index (BMI) of 33.0 to 33.9 in adult Inject 0.5 mL (0.25 mg total) under the skin every 7 days. 2 mL 2 08/31/2024 10/13/2024 Discontinued (Dose ad justment)Start: 15-24-2620xrhlcvgsppm, weight loss, (WEGOVY) 0.25 mg/0.5 mL pen injector Indications: Class 1 obesity due to excess calories with serious comorbidity and body mass index (BMI) of 33.0 to 33.9 in adult Inject 0.5 mL (0.25 mg total) under the skin every 7 days. 2 mL 2 08/31/2024 Active semaglutide, weight loss, (WEGOVY) 0.5 mg/0.5 mL pen injector (3 sources)Start: 10-13-2024 End: 62-61-4321dfesitnuhte, weight loss, (WEGOVY) 0.5 mg/0.5 mL pen injector Indications: Class 1 obesity due to excess calories with serious comorbidity and body mass index (BMI) of 33.0 to 33.9 in adult Inject 0.5 mL (0.5 mg total) under the skin every 7 days. 2 mL 1 10/13/2024 11/11/2024 Discontinued (Dose adjustment)Start: 44-62-6171efctrdhuaos, weight loss, (WEGOVY) 0.5 mg/0.5 mL pen injector Indications: Class 1 obesity due to excess calories with serious comorbidity and body mass index (BMI) of 33.0 to 33.9 in adult Inject 0.5 mL (0.5 mg total) under the skin every 7 days. 2 mL 1 10/13/2024 Activesemaglutide, weight loss, (WEGOVY) 1.7 mg/0.75 mL pen injector (5 sources)Start: 01-14-2024 End: 18-33-1477bvlspjyxahd, weight loss, (WEGOVY) 1.7 mg/0.75 mL pen injector Indications: Class 2 severe obesity due to excess calories with serious comorbidity and body mass index (BMI) of 39.0 to 39.9 in adult ([facility]) Inject 0.75 mL (1.7 mg total) under the skin every 7 days. 3 mL 2 01/14/2024 03/19/2024 Discontinued (Side effects)Start: 20-91-4341jdqqkuyvpjg, weight loss, (WEGOVY) 1.7 mg/0.75 mL pen injector Indications: Class 2 severe obesity due to excess calories with serious comorbidity and body mass index (BMI) of 39.0 to 39.9 in adult ([facility]) Inject 0.75 mL (1.7 mg total) under the skin every 7 days. 3 mL 2 01/14/2024 Jvtsza359 ml sodium chloride 9 mg/ml injection (2 [...] bag 1 Bag (1 source)Start: 04-07-2025 End: 86-83-8764arewf joint mixture (no clonidine) premade bag 1 Bagtranexamic acid 650 mg oral tablet (1 source)Antifibrinolytic AgentStart: 04-07-2025 End: 30-93-4455gcxw 1 dose by mouth every two hours1,950 mg, Oral, ONCE DIRECTED, 1 dose, Starting on 04/07/25 at 0638, Until Sat04/07/25 at 0705, See admin instructions, Administer 2 hours preop, Pre-op/Pre-ProcWEGOVY 0.5 mg/0.5 mL pen injector (5 sources)Start: 11-07-2023 End: 80-66-2562zsiakc 0.5 mL by subcutaneous injection every weekWEGOVY 0.5 mg/0.5 mL pen injector Indications: Morbid obesity ([facility]) Inject 0.5 mL (0.5 mg total) under the skin once a week. 2 mL 1 11/07/2023 11/12/2023 Discontinued (Dose adjustment)Start: 38-06-0375ssuzob 0.5 mL by subcutaneous injection every weekWEGOVY 0.5 mg/0.5 mL pen injector Indications: Morbid obesity ([facility]) Inject 0.5 mL (0.5 mg total) under the skin once a week. 2 mL 1 11/07/2023 ActiveStart: 10-10-2023 End: 11-76-1529BIJSIB 0.5 mg/0.5 mL pen injector INJECT 0.5 MG INTO THE SKIN EVERY 7 DAYS 10/10/2023 11/07/2023 Discontinued (Reorder)Start: 62-95-9989XXGWSJ 0.5 mg/0.5 mL pen injector INJECT 0.5 MG INTO THE SKIN EVERY 7 DAYS 10/10/2023 Active Problems Active Problems Problem ClassificationProblemDateDocumented DateEpisodic/ChronicAnxiety disorders (20 sources)Generalized anxiety disorder; Translations: [Generalized anxiety disorder]Onset: 692073-80-0586BpqwndyEhloqm (20 sources)Mild intermittent asthma; Translations: [Mild intermittent asthma, uncomplicated]Onset: 254920-83-8084XspnsviAgerzijvkp disorders (20 sources)Gastroesophageal reflux disease; Translations: [Gastro-esophageal reflux disease without esophagitis]Onset: 020045-23-7306TouyukmSdfit and electrolyte disorders (4 sources)Hypokalemia; Translations: [Hypokalemia]Onset: EpisodicHeadache; including migraine (20 sources)Migraine without aura, not refractory ; Translations: [Migraine without aura, not intractable, without status migrainosus]Onset: 07-08-2020 31-14-5769TdqguxlBkhkhwgfoyagn and screening for infectious disease (2 sources)Vaccination needed; Translations: [Encounter for immunization] 28-01-2402ShjhsgskEmcl disorders (20 sources)Major depressive disorder; Translations: [Major depressive disorder, single episode, unspecified]Onset: 293943-81-9053VvgrodaJhdxqb and vomiting (6 sources)Vomiting; Translations: [Nausea and vomiting]Onset: 03-15-2024 EpisodicOsteoarthritis (20 sources)Osteoarthritis of knee; Translations: [Unilateral primary osteoarthritis, unspecified knee]Onset: 51-59-100911121276-48-6424FzrhftcIeumv connective tissue disease (1 source)History of left total knee replacement; Translations: [Presence of left artificial knee joint]50-90-3379OoavamnRorth connective tissue disease (2 sources)Presence of left artificial knee joint; Translations: [Presence of left artificial knee joint]Onset: 49-05-6325PwyintlUhbzx nervous system disorders (20 sources)Circadian rhythm sleep disorder of shift work type; Translations: [Circadian rhythm sleep disorder,shift work type]Onset: ChronicOther nervous system disorders (4 sources)Other acute postprocedural pain; Translations: [Pain in joint, lower leg]Onset: 045501-97-7136QccrvjwtGamta nervous system disorders (1 source)Acute postoperative pain; Translations: [Other acute postprocedural pain]64-44-9471OvlfhwurAjnuw non-traumatic joint disorders (3 sources)Pain in left knee; Translations: [Pain in joint, lower leg]Onset: 946271-06-9522EmxbxlmfJhwmm non-traumatic joint disorders (2 sources)Pain in unspecified knee; Translations: [Pain in unspecified knee] Onset: 75-93-9073QpbvgjmuZvrre nutritional; endocrine; and metabolic disorders (1 source)Morbid (severe) obesity due to excess calories; Translations: [Morbid (severe) obesity due to excess calories]Onset: 66-91-6921KuicumnFoidb nutritional; endocrine; and metabolic disorders (1 source)Body mass index (BMI) 40.0-44.9, adult; Translations: [Body mass index (BMI) 40.0-44.9, adult]Onset: 00-73-8085XruhbkyPeibb nutritional; endocrine; and metabolic disorders (3 sources)Severe obesity; Translations: [Morbid (severe) obesity due to excess calories]37-31-8279DlvuxzaHykwb nutritional; endocrine; and metabolic disorders (20 sources)Obesity caused by energy imbalance; Translations: [Class 1 obesity due to excess calories with serious comorbidity and body mass index (BMI) of 33.0 to 33.9 in adult]Onset: 559456-04-3246MozqvuyFeqei nutritional; endocrine; and metabolic disorders (10 sources)Obesity; Translations: [Obesity, unspecified]Onset: 03-19-2024 77-83-4614YykkyxqVngay screening for suspected conditions (not mental disorders or infectious disease) (4 sources)Patient encounter status; Translations: [Encounter for screening for malignant neoplasm of colon]30-38-7025ApyoplonJluot upper respiratory infections (1 source)Recurrent acute sinusitis; Translations: [Other acute recurrent sinusitis]08-10-7194ZaaajnboByryzekz codes; unclassified (20 sources)Obstructive sleep apnea syndrome; Translations: [Obstructive sleep apnea (adult) (pediatric)]Onset: 311041-72-4695YcplmwvCmccallxoejz (2 sources)Left knee pain, unspecified epcyycspvc14-47-8805 Past or Other Problems Problem ClassificationProblemDateDocumented DateEpisodic/ChronicHeadache; including migraine (20 sources)Headache disorder; Translations: [Other headache syndrome]Onset: 607606-37-5629XblqkglvZkqynpl and fatigue (1 source)Fatigue; Translations: [Other fatigue]12-45-4582ExrwubnbRkkd disorders (20 sources)Mood disordersOnset: 10-15-2023 Resolved: Other gastrointestinal disorders (1 source)History of bariatric surgical procedure; Translations: [Bariatric surgery status]Onset: 519689-60-7704BijliewlUimhl nervous system disorders (16 sources)Tremor; Translations: [Tremor, unspecified]Onset: 12-03-2024 34-00-6292FskxwpufXxogc nutritional; endocrine; and metabolic disorders (20 sources)Morbid obesity; Translations: [Morbid (severe) obesity due to excess calories]Onset: 09-21-2015 Resolved: 283862-21-2814LoqveksHbmpqjddm and history of mental health and substance abuse codes (1 source)Ex-cigarette smoker; Translations: [Personal history of nicotine dependence]59-93-7172UniygibkEdaxbpciewq; intervertebral disc disorders; other back problems (20 sources)Chronic low back pain; Translations: [Chronic bilateral low back pain without sciatica]Onset: 812110-56-8841XthbslteNpanaztpkvjz (5 sources)Onset: 030943-73-3764Lggrujxovlul (1 source)Acute postoperative pain of left xjgd77-45-9717Csodkrylryll (2 sources)History of left total knee jgjohzeyxju64-65-4428 Results Test NameValueInterpretationReference RangeFacilityCBCon 44-85-1357OIZJXAOZ BAS 0.0 10*3/uLNormal0.0-0.2ASt. Mary's HospitalComment on above:Performed By: #### PTT, MG, PT, ACBC, CMPF #### Testing performed at [address] [address]GOVRMGEP EOS0.3 10*3/uLNormal0.0-0.7ASt. Mary's Hospital Comment on above:Performed By: #### PTT, MG, PT, ACBC, CMPF #### Testing performed at [address] [address]LOCJSCQE NEUTROPHIL COUNT4.3 10*3/uLNormal1.4-6.5ASt. Mary's HospitalComment on above:Performed By: #### PTT, MG, PT, ACBC, CMPF #### Testing performed at [address] [address]Tqkkauifd/100 WBC (Bld)0.3 %Normal0.0-2.0[facility] Comment on above:Performed By: #### PTT, MG, PT, ACBC, CMPF #### Testing performed at [address] [address]EIUNFXVSW DIFFNormalASt. Mary's HospitalComment on above: Performed By: #### PTT, MG, PT, ACBC, CMPF #### Testing performed at [address] [address]Lpjyldltehv/100 WBC (Bld)3.7 %Normal0.0-11.0[facility] CountyComment on above:Performed By: #### PTT, MG, PT, ACBC, CMPF #### Testing performed at [address] [address]Sbfhyuawroz (Bld) [#/Vol]2.0 10*3/uLNormal1.2-3.4ASt. Mary's HospitalComment on above:Performed By: #### PTT, MG, PT, ACBC, CMPF #### Testing performed at [address] [address]Lnakzqtgkro/100 WBC (Bld)26.9 %Kmizhq79.0-55.0[facility] CountyComment on above:Performed By: #### PTT, MG, PT, ACBC, CMPF #### Testing performed at [address] [address]Jnoerlrzd (Bld) [#/Vol]0.8 10*3/uLHigh0.0-0.7AMarymount Hospitalment on above:Performed By: #### PTT, MG, PT, ACBC, CMPF #### Testing performed at [address] [address]Uiarymvis/100 WBC (Bld)11.0 %High0.0-10.0[facility] Comment on above:Performed By: #### PTT, MG, PT, ACBC, CMPF #### Testing performed at [address] [address]Tpwuinzhvhf/100 WBC (Bld)58.1 %Yfhqdn22.0-75.0[facility]uteCare [facility] Systemment on above:Performed By: #### PTT, MG, PT, ACBC, CMPF #### Testing performed at [address] [address]Vxzxexxybtp distribution width (RBC) [Ratio]13.4 %Normal 11.5-14.5AMarymount Hospitalment on above:Performed By: #### PTT, MG, PT, ACBC, CMPF #### Testing performed at [address] [address]Juafptmcno (Bld) [Volume fraction]31.7 %Low36.0-48.0[facility]uteCare Health Systemment on above:Performed By: #### PTT, MG, PT, ACBC, CMPF #### Testing performed at [address] [address]Garzjnlhhz (Bld) [Mass/Vol]10.7 g/dLLow12.0-16.0[facility] CountyComment on above:Performed By: #### PTT, MG, PT, ACBC, CMPF #### Testing performed at [address] [address]GGP (RBC) [Entitic mass]31.6 seTbotwd82.0-35.0[facility] HospitalComment on above:Performed By: #### PTT, MG, PT, ACBC, CMPF #### Testing performed at [address] [address]SBMR (RBC) [Mass/Vol]33.9 g/pFPiofyn97.0-37.0[facility] HospitalComment on above:Performed By: #### PTT, MG, PT, ACBC, CMPF #### Testing performed at [address] [address]JAZ (RBC) [Entitic vol]93.3 pFSptzao95.0-100.0[facility] CountyComment on above:Performed By: #### PTT, MG, PT, ACBC, CMPF #### Testing performed at [address] [address]Gviwvovo mean volume (Bld) [Entitic vol]8.2 fLNormal7.4-11.0 [facility] CountyComment on above:Performed By: #### PTT, MG, PT, ACBC, CMPF #### Testing performed at [address] [address]Potzvegvz (Bld) [#/Vol]462 10*3/kROukd956-668AlxukThe [facility] Hospital Of Salem CountyComment on above:Performed By: #### PTT, MG, PT, ACBC, CMPF #### Testing performed at [address], [place] [address]BCQ (Bld) [#/Vol]3.40 10*6/uLLow4.0-5.4AClinch Valley Medical Center on above:Performed By: #### PTT, MG, PT, ACBC, CMPF #### Testing performed at [address] [address]ENE (Bld) [#/Vol]7.4 10*3/uLNormal3.6-11.0[facility] CountyComment on above:Performed By: #### PTT, MG, PT, ACBC, CMPF #### Testing performed at [facility] [address] [place], [place] [address]VAG, EDIF, PLATELETon 68-41-8097QOWMQBVJ BASOPHIL COUNT0.0 10*3/uL0.0 - 0.2 10*3/uLUniversity Hospitals Portage Medical CenterBasophils/100 WBC (Bld)0.3 %0.0 - 2.0 %[facility] CenterDifferential cell count method Nom (Bld)AUTO DIFF%[facility] CenterEosinophils (Bld) [#/Vol]0.3 10*3/uL0.0 - 0.7 10*3/uLUniversity Hospitals Portage Medical CenterEosinophils/100 WBC (Bld)3.7 %0.0 - 11.0 %[facility] CenterErythrocyte distribution width (RBC) [Ratio]13.4 %11.5 - 14.5 %[facility] Medical CenterHematocrit (Bld) [Volume fraction]31.7 %Low36.0 - 48.0 %[facility] CenterHemoglobin (Bld) [Mass/Vol]10.7 g/dLLowUniversity Hospitals Portage Medical CenterInterpretation and review of laboratory resultsAbnormKettering Memorial HospitalLymphocytes (Bld) [#/Vol]2.0 10*3/uL1.2 - 3.4 10*3/uLUniversity Hospitals Portage Medical CenterLymphocytes/100 WBC (Bld)26.9 %20.0 - 55.0 %[facility] CenterMCH (RBC) [Entitic mass]31.6 pg26.0 - 35.0 PGASt. Mary's Medical Center, Ironton CampusMCHC (RBC) [Mass/Vol]33.9 g/dLUniversity Hospitals Portage Medical CenterMCV (RBC) [Entitic vol]93.3 [facility] CenterMonocytes (Bld) [#/Vol]0.8 10*3/uLHigh0.0 - 0.7 10*3/uLUniversity Hospitals Portage Medical CenterMonocytes/100 WBC (Bld)11.0 %High0.0 - 10.0 %[facility] SystemNeutrophils (Bld) [#/Vol]4.3 10*3/uL1.4 - 6.5 10*3/[facility] HospitalNeutrophils/100 WBC (Bld)58.1 %37.0 - 75.0 %[facility] Medical CenterPlatelet mean volume (Bld) [Entitic vol]8.2 [facility] SystemPlatelets (Bld) [#/Vol] 462 10*3/xTOvfb503 - 400 10*3/[facility] SystemRBC (Bld) [#/Vol]3.40 10*6/uL Low4.0 - 5.4 10*6/[facility] HospitalWBC (Bld) [#/Vol]7.4 10*3/uL3.6 - 11.0 10*3/[facility] CenterCMP FASTINGon 04-17-2025:G RATIO 1.2 RATIONormalThe [facility] CountyComment on above:Performed By: #### PTT, MG, PT, ACBC, CMPF #### Testing performed at [address] [address]Viffkdl [Mass/Vol]3.6 g/dLNormal3.5-5.0[facility] Comment on above:Performed By: #### PTT, MG, PT, ACBC, CMPF #### Testing performed at [address] [address]DZX [Catalytic activity/Vol]146 U/AXlkr60-673ExgpvThe [facility] Hospital Of Salem CountyComment on above:Performed By: #### PTT, MG, PT, ACBC, CMPF #### Testing performed at [address] [address]AHE [Catalytic activity/Vol]15 U/LNormal<35The [facility] CountyComment on above:Performed By: #### PTT, MG, PT, ACBC, CMPF #### Testing performed at [address] [address]XCS [Catalytic activity/Vol]24 U/ALkypcp00-16PdtxxThe [facility] CountyComment on above:Performed By: #### PTT, MG, PT, ACBC, CMPF #### Testing performed at [address] [address]Pcwoxqioo [Mass/Vol]0.8 mg/dLNormal0.2-1.3ASt. Mary's HospitalComment on above:Performed By: #### PTT, MG, PT, ACBC, CMPF #### Testing performed at [address] [address]Plkudyj [Mass/Vol]9.5 mg/dLNormal8.4-10.2ASt. Mary's Hospital Comment on above:Performed By: #### PTT, MG, PT, ACBC, CMPF #### Testing performed at [address] [address]Wcvrpxnh [Moles/Vol]105 mmol/NNqwlur44-094QraueThe Memorial Hospital Of Salem CountyComment on above:Result Comment: Please note: Triglyceride levels of 600mg/dL or higher may positively bias chlorideresults by approximately 2.1 mmol Performed By: #### PTT, MG, PT, ACBC, CMPF #### Testing performed at [address] [address]DW1 [Moles/Vol]23 mmol/LXefwvm18-60QdbsqThe [facility] Comment on above:Performed By: #### PTT, MG, PT, ACBC, CMPF #### Testing performed at [address] [address]Qheozotxax [Mass/Vol]0.60 mg/dLLow0.70-1.20The [facility] CountyComment on above:Performed By: #### PTT, MG, PT, ACBC, CMPF #### Testing performed at [address] [address]MHU InformationAverage GFR for 50-59 years old = 93.NormalThe [facility] Of Salem CountyComment on above:Result Comment: Chronic Kidney disease, GFR = <60. Kidney failure, GFR = <15. The GFR estimate is not adjusted for extreme body surface area or acute process, nor has it been validated for women or ethnic groups other than and . MDRD EquationPerformed By: #### PTT, MG, PT, ACBC, CMPF #### Testing performed at [address] [address]DWK/1.73 sq M.predicted MDRD (S/P/Bld) [Vol rate/Area]109 mL/min/{1.73_m2}NormalThe Memorial Hospital Of Salem CountyComment on above:Performed By: #### PTT, MG, PT, ACBC, CMPF #### Testing performed at [address] [address]Gireuyl [Mass/Vol]122 mg/bHOgwv22-367MeutuThe [facility] Comment on above:Result Comment: NORMAL <100 mg/dL PREDIABETES 101-126 mg/dL DIABETES 126 mg/dL or higherPerformed By: #### PTT, MG, PT, ACBC, CMPF #### Testing performed at [address] [address]Bzrfvmlrv [Moles/Vol]3.0 mmol/LLow3.5-5.1ASt. Mary's Hospital Comment on above:Performed By: #### PTT, MG, PT, ACBC, CMPF #### Testing performed at [address] [address]Kzqkmrh [Mass/Vol]6.6 g/dLNormal6.3-8.2ASt. Mary's Hospital Comment on above:Performed By: #### PTT, MG, PT, ACBC, CMPF #### Testing performed at [address] [address]Bcahyx [Moles/Vol]140 mmol/JUllror132-007ZjcrzThe [facility] Comment on above:Performed By: #### PTT, MG, PT, ACBC, CMPF #### Testing performed at [address] [address]Mouf nitrogen [Mass/Vol]7 mg/dLNormal7-20[facility] Comment on above:Performed By: #### PTT, MG, PT, ACBC, CMPF #### Testing performed at [address] [address]XHFYFQFHLZQZA METABOLIC PANELon 92-95-6255Zelemnf [Mass/Vol]3.6 g/dL3.5 - 5.0 g/dLAdams County Hospital SystemAlbumin/Globulin [Mass ratio]1.2 {ratio} RATIOUniversity Hospitals Portage Medical CenterALP [Catalytic activity/Vol]146 U/LHigh38 - 126 U/[facility] OhioALT [Catalytic activity/Vol]15 U/LNINF - 35 U/[facility] AST [Catalytic activity/Vol]24 U/L14 - 36 U/[facility] OhioBilirubin [Mass/Vol]0.8 mg/dL0.2 - 1.3 mg/dLUniversity Hospitals Portage Medical CenterCalcium [Mass/Vol]9.5 mg/dL 8.4 - 10.2 mg/dLUniversity Hospitals Portage Medical CenterChloride [Moles/Vol]105 mmol/[facility] OhioComment on above:Please note: Triglyceride levels of 600mg/dL or higher may positively bias chloride results by approximately 2.1 mmolCO2 [Moles/Vol]23 mmol/[facility] OhioCreatinine [Mass/Vol]0.60 mg/dLLow0.70 - 1.20 mg/dL [facility] CenterGFR COMMENTAverage GFR for 50-59 years old = 93.[facility] CenterComment on above:Chronic Kidney disease, GFR = <60. Kidney failure, GFR = <15. The GFR estimate is not adjusted for extreme body surface area or acute process, nor has it been validated for women or ethnic groups other than and . MDRD Equation GFR/1.73 sq M.predicted MDRD (S/P/Bld) [Vol rate/Area]109 mL/min/{1.73_m2} ml/min/1.73sq.Kindred HealthcareGlucose post fast [Mass/Vol]122 mg/dLHighUniversity Hospitals Portage Medical CenterComment on above: NORMAL <100 mg/dL PREDIABETES 101-126 mg/dL DIABETES 126 mg/dL or higher Interpretation and review of laboratory resultsAbnormalASt. [facility] Potassium [Moles/Vol]3.0 mmol/LLowAAshtabula County Medical Center SystemProtein [Mass/Vol]6.6 g/dL 6.3 - 8.2 g/dLGreen Cross Hospitalodium [Moles/Vol]140 mmol/[facility] Urea nitrogen [Mass/Vol]7 mg/dL7 - 20 mg/dLUniversity Hospitals Portage Medical CenterCT ABDOMEN/PELVIS WITH CONTRASTon 82-12-3513FS ABDOMEN/PELVIS WITH CONTRASTCT OF THE ABDOMEN AND [...] findings or inflammatory change. 3. Prior gastric bypass.[facility] Abdomen and Pelvis W contrast Angelina 72-71-6263GETBOTLWGU: 1. Moderate compact feces throughout. Possible constipation. [...] or inflammatory change. 3. Prior gastric bypass. [facility] Medical CenterRadiology Study observation (narrative)[facility] Abdomen and Pelvis W contrast IVOrdered By: Rakan Cheema on 39-56-5542IykeoSt. Mary's [facility] Work Phone: AKCTATE, BLOODon 56-47-1601Jsefkblvghmfpw and review of laboratory resultsAbnormKettering Memorial HospitalLactate [Moles/Vol]2.6 mmol/L Critically high0.7 - 2.0 mmol/[facility] SystemComment on above:PLEASE REPEAT INITIAL CRITICAL IN 3 HOURS IF ED OR INPATIENT SEPSIS PATIENT Result called to read back by: Bessy DE LA CRUZ 04/17/2025 @ 01:08 by [facility] CenterCTATE,BLOODon 76-13-3182Jftkhlw [Moles/Vol]2.6 mmol/L Critically high0.7-2.0The [facility] Salem CountyComment on above:Result Comment: PLEASE REPEAT INITIAL CRITICAL IN 3 HOURS IF ED OR INPATIENT SEPSIS PATIENT Result called to read back by: Bessy DE LA CRUZ 04/17/2025 @ 01:08 by [facility] CENTERerformed By: #### PT #### Testing performed at [address] [address]FIKREGDLGnu 78-14-2137Becfewxwq [Mass/Vol]1.7 mg/dLUniversity Hospitals Portage Medical CenterMagnesium [Mass/Vol]1.7 mg/dLNormal1.6-2.3ASt. Mary's HospitalComment on above:Performed By: #### PTT, MG, PT, ACBC, CMPF #### Testing performed at [address], [place] [address]Mi Panel Informationon 93-32-0496BeexpParkwood HospitalPROTIMEon 95-78-2228XVO Coag (PPP) [Relative time]0.95 {INR}Normal 0.85-1.10ASt. Mary's HospitalComment on above:Result Comment: 2.0-3.0 THERAPEUTIC RANGE 2.5-3.5 MECHANICAL VALVE RANGEPerformed By: #### PTT, MG, PT, ACBC, CMPF #### Testing performed at [address] [address]TJ Coag (PPP) [Time]12.7 nSnlyde35.8-14.4ASt. Mary's Hospital Comment on above:Performed By: #### PTT, MG, PT, ACBC, CMPF #### Testing performed at [address], [place] [address]EKHFBFC-OKTpt 02-40-1200JUT Coag (PPP) [Relative time]0.95 {INR}0.85 - 1.10ASt. Mary's Medical Center, Iront[facility] CampusComment on above: 2.0-3.0 THERAPEUTIC RANGE 2.5-3.5 MECHANICAL VALVE RANGE PT Coag (PPP) [Time]12.7 [facility] HospitalPTLa [facility] 90-79-9523rZQJ Coag (Bld) [Time]33.5 [facility] HospitalComment on above: CARDIAC AND PE/DVT THERAPUTIC RANGE 69-97 SEC VASCULAR/THREATENED LIMB THERAPUTIC RANGE 80-112 SEC aPTT Coag (Bld) [Time]33.5 lByusmt10.4-34.7ASt. Mary's HospitalComment on above:Result Comment: CARDIAC AND PE/DVT THERAPUTIC RANGE 69-97 SEC VASCULAR/THREATENED LIMB THERAPUTIC RANGE 80-112 SECPerformed By: #### PTT, MG, PT, ACBC, CMPF #### Testing performed at [address] [address]MB KNEE LEFT 1-2 VIEWSon 76-92-1815ZS KNEE LEFT 1-2 VIEWSEXAM: XR KNEE LEFT 1-2 VIEWS HISTORY: postop COMPARISON: None. IMPRESSION: 1. No acute fracture or malalignment. 2. Arthroplasty. No evidence of acute hardware complication. Postsurgical changes within the adjacent soft tissues. 3. Tiny quadriceps enthesophyte.NormalThe Memorial Hospital Of Salem CountyRAPID TOX SCREEN,URINEon 71-97-3170CIMELOBIZKJLzzpisruYianupVEPSZPBJKnrlo [facility] Comment on above:Result Comment: <500 ng/ml CUTOFFPerformed By: #### PT #### Testing performed at [address] [address]WXDQAYLHSKFSVyyglnhaJyxvjiNRBQDDYIFelnb [facility] HospitalComment on above:Result Comment: <200 ng/ml CUTOFFPerformed By: #### PT #### Testing performed at [address] [address]WZSSNOJFZZJJARFOfbbqtrvKzxxlhyhPWCWBYEUOdofl [facility] Comment on above:Result Comment: <200 ng/ml CUTOFF *Unconfirmed Screening Result* Unconfirmed screening results are to be used only for medical treatment purposes.Performed By: #### PT #### Testing performed at [address] [address]LXPSNYJLHVFDKQuuqoyakTmesudXFYLUJLSUnvan [facility] Comment on above:Result Comment: <10 ng/ml CUTOFFPerformed By: #### PT #### Testing performed at [address] [address]PVSJTTPAPSFEDeeihhdbFzohkhttBIBRODLMHmcqa [facility] Comment on above:Result Comment: <50 ng/ml CUTOFF *Unconfirmed Screening Result* Unconfirmed screening results are to be used only for medical treatment purposes.Performed By: #### PT #### Testing performed at [address] [address]YUCIPAESjjmwvzgArhkweGBYSUKFXIehnmEncompass Health Rehabilitation Hospital of New EnglandComment on above:Result Comment: <150 ng/ml CUTOFFPerformed By: #### PT #### Testing performed at [address] [address]KNMEUXFBPksbhkeoAikudsJLMYANUDUssfw [facility] HospitalComment on above:Result Comment: 1.0 ng/mL CUTOFF *Unconfirmed Screening Result* Unconfirmed screening results are to be used only for medical treatment purposes. This test has not been approved by the FDA. Performed By: #### PT #### Testing performed at [address], [place] [address]BVJINDUZK METABOLITENegativeNormalNEGAstra Health CenterComment on above:Result Comment: <100 ng/ml CUTOFFPerformed By: #### PT #### Testing performed at [address] [place] [address]JKGIMMFAHRBLKDCZaukztijTjnvfmUQRWGCZLHbuvb [facility] Comment on above:Result Comment: <500 ng/ml CUTOFFPerformed By: #### PT #### Testing performed at [address] [address]CCNCMCSUcxknrvrFhsserRGJYVKDRIgxtn [facility] HospitalComment on above:Result Comment: <300 ng/ml CUTOFFPerformed By: #### PT #### Testing performed at [address] [place] [address]ZNLISDXBVOwwnjcvsKaxprdPPUMFRGOUiavs [facility] HospitalComment on above:Result Comment: <100 ng/ml CUTOFFPerformed By: #### PT #### Testing performed at [address] [place] [address]REOOGQOZS ANTIDEPRESSANTSNegativeNormalNEGAstra Health CenterComment on above:Result Comment: <1000 ng/ml CUTOFFPerformed By: #### PT #### Testing performed at [address], [place] [address]PGLSKYDOQM DRUG SCREEN, URINEon 93-14-5126Ofjnarifzgld Screen Ql (U)NegativeNEGATIVE NG/MLAvita Health SystemComment on above:<500 ng/ml CUTOFFBarbiturates Screen Ql (U)NegativeNEGATIVE NG/MLAvita Health SystemComment on above:<200 ng/ml CUTOFFBenzodiazepinesPositiveAbnormalNEGATIVE NG/MLAvita Health SystemComment on above:<200 ng/ml CUTOFF *Unconfirmed Screening Result* Unconfirmed screening results are to be used only for medical treatment purposes. BuprenorphineNegativeNEGATIVE NG/MLChildren'S Hospital ColoradoTrendy Mondays SystemComment on above:<10 ng/ml CUTOFFCannabinoids Screen Ql (U)PositiveAbnormalNEGATIVE NG/MLChildren'S Hospital Coloradota AppwoRx SystemComment on above:<50 ng/ml CUTOFF *Unconfirmed Screening Result* Unconfirmed screening results are to be used only for medical treatment purposes. CocaineNegativeNEGATIVE NG/MLChildren'S Hospital Coloradota AppwoRx SystemComment on above:<150 ng/ml CUTOFFFentanylNegativeNEGATIVE NG/MLChildren'S Hospital Coloradota AppwoRx SystemComment on above:1.0 ng/mL CUTOFF *Unconfirmed Screening Result* Unconfirmed screening results are to be used only for medical treatment purposes. This test has not been approved by the FDA. Interpretation and review of laboratory resultsAbnoMercy Hospital Methadone+Metabolite Screen Ql (U)NegativeNEGATIVE NG/MLChildren'S Hospital ColoradoTrendy Mondays System Comment on above:<100 ng/ml CUTOFFMethamphetamine Ql (U)NegativeNEGATIVE NG/ML [facility] ColoradoTrendy Mondays SystemComment on above:<500 ng/ml CUTOFFOpiates Ql (U)Negative NEGATIVE NG/MLChildren'S Hospital ColoradoTrendy Mondays SystemComment on above:<300 ng/ml CUTOFFOxycodone ConfirmationNegativeNEGATIVE NG/MLChildren'S Hospital ColoradoTrendy Mondays SystemComment on above:<100 ng/ml CUTOFFTricyclic Antidepressants, UrineNegativeNEGATIVE NG/MLChildren'S Hospital ColoradoTrendy Mondays System Comment on above:<1000 ng/ml CUTOFFChildren'S Hospital ColoradoTrendy Mondays [facility] HospitalCMP Standardon 03-08-2025 eGFR Non AA>60Invalid Interpretation [facility] CenterComment on above: Performed By: #### [id number], [id number], 0051433, 7664614, 3830347, [id number], 6367890 #### [facility] (DEFAULT) [address] [place] [address] 04611xVNH AA>60Invalid Interpretation [facility] Comment on above:Performed By: #### [id number], [id number], 8270825, 1262666, 1722287, [id number], 7937056 #### [facility] (DEFAULT) [address] [place] [address] 69909Uaiiwga [Mass/Vol]3.6 g/dLNormal3.5-5.0[facility] Comment on above:Performed By: #### 7671560, [id number], 6376720, 2208830, 6584503, 0258734254, 6433573 #### [facility] (DEFAULT) [address] [place] [address] 25134Lyr Phos92 IU/BLgfh60-15Uivjibvf HospitalComment on above: Performed By: #### 6802888, [id number], 4499907, 0490604, 1412436, 9912781778, 5555265 #### [facility] (DEFAULT) [address] [place] [address] 19473QWC [Catalytic activity/Vol]13.0 U/LLow14.0-54.0[facility] HospitalComment on above:Performed By: #### [id number], [id number], 3542109, 7684341, 7087872, 4667724024, 3295837 #### [facility] (DEFAULT) [address] [place] [address] 90293QTG [Catalytic activity/Vol]18 U/TQtwujs23-50Eedtrlub HospitalComment on above:Performed By: #### 0262222, [id number], 1854168, 0672975, 6550065, 7869121258, 9167943 #### [facility] (DEFAULT) [address] [place] [address] 92193Lahq Total0.8 mg/dLNormal0.3-1.2[facility] HospitalComment on above:Performed By: #### 6637334, [id number], 3169096, 9546892, 9042350, 5541675775, 9955854 #### [facility] (DEFAULT) [address] [place] [address] 16455Ozblxyp [Mass/Vol]9.1 mg/dLNormal8.9-10.3[facility] Comment on above:Performed By: #### 4004634, [id number], 9561655, 0782707, 0094468, 3548892045, 2480852 #### [facility] (DEFAULT) [address] [place] [address] 57077Nhyhlipk [Moles/Vol]102 mmol/ZHuvjdi903-304Ulbvmpjk HospitalComment on above:Performed By: #### 5916994, [id number], 7903949, 6029753, 0716303, 8343287140, 5371360 #### [facility] (DEFAULT) [address] [place] [address] 15890BN7 [Moles/Vol]26 mmol/AJgdrxw12-65Tigkxtzn Hospital Comment on above:Performed By: #### 4218910, [id number], 6339175, 5762808, 1795636, 8300324516, 2295165 #### [facility] (DEFAULT) [address] [place] [address] 07123Bnwxkteghf [Mass/Vol]0.63 mg/dLNormal0.60-1.30[facility] HospitalComment on above:Performed By: #### 6363016, [id number], 6219098, 1502680, 7054882, 5377339961, 3469525 #### [facility] (DEFAULT) [address] [place] [address] 72081Hmghxcb [Mass/Vol]76.0 mg/tJKtczlp68.0-118.0[facility] HospitalComment on above:Performed By: #### 1908615, [id number], 4158150, 7509039, 0571071, 8659283645, 3423809 #### [facility] (DEFAULT) [address] [place] [address] 94533Awtdimzff [Moles/Vol]3.7 mmol/LNormal3.6-5.1[facility] HospitalComment on above:Performed By: #### 5770643, 9672871534, 7864903, 7117244, 6831135, 6211869248, 1934313 #### [facility] (DEFAULT) [address] [place] [address] 78614Qmtpils [Mass/Vol]6.6 g/dLNormal6.5-8.1[facility] Hospital Comment on above:Performed By: #### 8533349, 3626794444, 3799511, 0761491, 6963705, 0544302118, 1956300 #### [facility] (DEFAULT) [address] [place] [address] 66151Bukzoh [Moles/Vol]134.0 mmol/KBuo963.0-144.0[facility] HospitalComment on above:Performed By: #### 0613315, [id number], 2665427, 5936239, 5895128, 2976203119, 0175062 #### [facility] (DEFAULT) [address] [place] [address] 21007Ygzn nitrogen [Mass/Vol]10 mg/dLNormal8-26[facility] HospitalComment on above:Performed By: #### 0990541, 7412625115, 5231190, 5081753, 3657485, 6903059183, 6440803 #### [facility] (DEFAULT) [address] [place] [address] 94837Rekkzqn/Globulin [Mass ratio]1.2 {ratio}Low1.4-2.6[facility]rcher[facility] hospital HospitalComment on above:Performed By: #### 9854896, [id number], 4783464, 9449643, 9092227, 7850019963, 6412386 #### [facility] (DEFAULT) [address] [place] [address] 09184Hzetz gap [Moles/Vol]9.7 mmol/LNormal5.0-19.0[facility] HospitalComment on above:Performed By: #### 0581322, 7277490197, 0895721, 9030154, 5958291, 6041032158, 9319034 #### [facility] (DEFAULT) [address] [place] [address] 18417Elbawszp (S) [Mass/Vol]3.0 g/dLNormal1.5-4.3[facility]rcher[facility] HospitalComment on above:Performed By: #### 7433423, 6828748587, 2434322, 4787284, 5345945, 7162957842, 8724177 #### [facility] (DEFAULT) [address] [place] [address] 74929Dzbatnczaw463 mOsm/LInvalid Interpretation CodeWvumedicine [facility] Hospital HospitalComment on above:Performed By: #### 0397159, 9495656097, 9113267, 1019192, 3450745, 4604355381, 9333624 #### [facility] (DEFAULT) [address] [place] [address] 23850Njad nitrogen/Creatinine [Mass ratio]15.8 mg/mgNormal 4.6-16.2[facility] HospitalComment on above:Performed By: #### 8041845, 1202265772, 8416353, 2691366, 5592738, 7878931669, 9316205 #### [facility] (DEFAULT) [address] [place] [address] 72549KFVzt 84-68-4603Lhycy glutamyl transferase [Catalytic activity/Vol]35.0 U/LNormal7.0-50.0[facility] HospitalComment on above:Performed By: #### 8001415, [id number], 4565900, 6417561, 6866802, 8980874306, 8990269 #### [facility] (DEFAULT) [address] [place] [address] 18822Vmaj Levelon 70-41-8457Mpny [Mass/Vol]47.0 ug/dLNormal 28.0-170.0[facility] HospitalComment on above:Performed By: #### 8632196, 6875396007, 1528563, 5420353, 2569417, 2389441659, 7669332 #### [facility] (DEFAULT) [address] [place] [address] 25524JFKwl 04-61-1229NKT262.0 IU/QDjimdu34.0-192.0[facility] HospitalComment on above:Performed By: #### 8196490, 7105841680, 6863539, 7961002, 6718202, 0611459545, 7875100 #### [facility] (DEFAULT) [address] [place] [address] 36962Nhehf Panel Standardon 75-79-9532Imeljwrlowv [Mass/Vol] 180.0 mg/vNNbhsqj90.0-200.0[facility] HospitalComment on above:Performed By: #### 8432593, 6550969460, 4730323, 9731297, 5697181, 7866626713, 9599906 #### [facility] (DEFAULT) [address] [place] [address] 07357Auckdssthxs in HDL [Mass/Vol]54 mg/iZTbwjci13-47Acbeusvv HospitalComment on above:Performed By: #### 5128194, 9162275032, 9002067, 6108588, 4919304, 2660691053, 9940333 #### [facility] (DEFAULT) [address] [place] [address] 04978Eaimguyekpek [Mass/Vol]137.0 mg/dLNormal0.0-150.0[facility] HospitalComment on above:Performed By: #### 0927040, 8223385187, 3465903, 4569595, 0947130, 4012757392, 6083477 #### [facility] (DEFAULT) [address] [place] [address] 62063Fiexnqvpmbx in LDL [Mass/Vol]98 mg/dLNormal1-100[facility] HospitalComment on above:Performed By: #### 1405087, 3021301025, 2345191, 8857303, 3939729, 4550123803, 3068433 #### [facility] (DEFAULT) [address] [place] [address] 35402Tybminsyues.total/Cholesterol in HDL [Mass ratio]3.3 {ratio}Normal0.0-4.5[facility] HospitalComment on above:Performed By: #### 4013818, 8249278439, 9807494, 8813370, 9522185, 8981545781, 3498382 #### [facility] (DEFAULT) [address] [place] [address] 99501OIXT.27 mg/dLNormal5-40[facility] HospitalComment on above: Performed By: #### 0997595, 2168547029, 6206286, 7492687, 4611153, 6648558064, 5138802 #### [facility] (DEFAULT) [address] [place] [address] 77815Ukgjiq 73-77-2948Kjxwiaama [Mass/Vol]3.0 mg/dLNormal 2.5-4.6[facility] HospitalComment on above:Performed By: #### 4583599, 3127952508, 0849325, 2717137, 4140531, 4535752262, 7621881 #### [facility] (DEFAULT) [address] [place] [address] 56563Bvzi Acidon 33-13-4247Fzwkq [Mass/Vol]4.8 mg/dLNormal 2.6-8.0[facility] HospitalComment on above:Performed By: #### 8843628, 7667569782, 7202460, 6028177, 2758289, 8744600541, 9223971 #### [facility] (DEFAULT) [address] [place] [address] 97496ZXXHLEOEXI A1Con 62-09-6267Njtynms [Mass/Vol]111 mg/dL NormalThe Memorial Hospital Of Salem CountyComment on above:Performed By: #### PT #### Testing performed at [address] [address]AyA7b (Bld) [Mass fraction]5.5 %[address] Comment on above:Result Comment: NORMAL <5.7% PREDIABETES 5.7-6.4% DIABETES 6.5% OR HIGHERPerformed By: #### PT #### Testing performed at [address] [address]HSME SCREENon 95-64-4682HBPE DNA NORAH+probe Ql (Unsp spec) NegativeNormalNEGAstra Health CenterComment on above:Performed By: #### MRSAST #### Testing performed at [address] [address]HVMHF AUREUS SCREENNegativeNormalNEGAstra Health Center Comment on above:Result Comment: TESTING PERFORMED BY PCRPerformed By: #### MRSAST #### Testing performed at [address] [place] [address]WJVEMGFiu 26-95-7881KTD Coag (PPP) [Relative time]0.89 {INR} Normal0.85-1.10ASt. Mary's HospitalComment on above:Result Comment: 2.0-3.0 THERAPEUTIC RANGE 2.5-3.5 MECHANICAL VALVE RANGEPerformed By: #### PT #### Testing performed at [address] [address]NC Coag (PPP) [Time]12.1 iPlphws65.8-14.4ASt. Mary's Hospital Comment on above:Performed By: #### PT #### Testing performed at [address] [place] [address]NDLHA MACROSCOPICon 25-40-5584Odfbwuboa Ql (U)NegativeNormal NEGATIVEThe Memorial Hospital Of Salem CountyComment on above:Performed By: #### UMAC #### Testing performed at [address] [address]Mewhtaa (U)CLEARNormalCLEARThe Memorial Hospital Of Salem CountyComment on above:Performed By: #### UMAC #### Testing performed at [address], [place] [address]Yqnnh (U)YELLOWNormalYELLOWThe [facility] Hospital Of Salem CountyComformerly [facility] on above:Performed By: #### UMAC #### Testing performed at [address] [place] [address]Zbkqxhv Ql (U)NegativeNormalNEGAstra Health Center Comment on above:Performed By: #### UMAC #### Testing performed at [address], [place] [address]cX (U)6.0 [pH]Normal5.0-7.0The [facility] Hospital Of Salem CountyComment on above:Performed By: #### UMAC #### Testing performed at [address] [place] [address]LUKNF HEMOGLOBINNegativeNormalNEGAstra Health Center Comment on above:Performed By: #### UMAC #### Testing performed at [address] [place] [address]YCEUW KETONENegativeNormalNEGATIVEThe Memorial Hospital Of Salem CountyComment on above:Performed By: #### UMAC #### Testing performed at [address] [address]XAVTI LEUKOTESTNegativeNormalNEGAstra Health Center Comment on above:Performed By: #### UMAC #### Testing performed at [address] [address]KSPFR NITRATESNegativeNocone health annie penn hospitalNEGAstra Health Center Comment on above:Performed By: #### UMAC #### Testing performed at [address] [address]HLXBH SPEC GRAVITY<1.854Adx0.010-1.025[facility] Comment on above:Performed By: #### UMAC #### Testing performed at [address] [address]LMBVN TOTAL PROTEINNegativeNoCrownpoint Health Care Facility Comment on above:Performed By: #### UMAC #### Testing performed at [address] [address]Qselmjmuecwc Qn (U)0.2 {Rabia'U}/dLNormal0.2-1.0The [facility] Hospital Of Salem CountyComment on above:Performed By: #### UMAC #### Testing performed at [address] [address]Wrql Management Office/Clinic Noteon 36-62-7110Jrhn Management Office/Clinic NoteChief Complaint bilateral knee pain [...] L2 laminectomy Comments Surgery: Dr. Burr in [place] Comments Other: HEP - none Recent testing: [...] accord and tracy (more content not included)... NormalKettering Health Greene MemorialPain Mgmt Tox Scnon 51-35-9533Fghj Management Tox ScreenSee ReportNormalKettering Health Greene MemorialComment on above:Order Comment: SENT 06/19/2024 14:12:59 EST GSResult Comment: Missing Attachment Chartable Reference Lab Reports Can be viewed in source system Performed By: #### CD:[id number] #### [address] [address]Dypl Management Office/Clinic Noteon 17-81-7462Tdxa Management Office/Clinic NoteChief Complaint low back & [...] L2 laminectomy Comments Surgery: Dr. Burr in [place] Recent testing: No Loss of bladder/bowel: Denies [...] 4ml 0.25% Marcaine c (more content not included)...[facility] Pain Management Office/Clinic Noteon 54-45-4251Agsr Management Office/Clinic NoteChief Complaint bilateral mid back [...] L2 laminectomy Comments Surgery: Dr. Burr in [place] Date Other: HEP Frequency Other: PRN Effective [...] medication interactions/contraindications and/or (more content not included)...Normal [facility] with Diffon 88-85-0036Bvk. Basophil0.06 k/uL Normal0.00-0.20[facility] HospitalComment on above:Performed By: #### MG, URI, CDP, ADRIEN, CP #### [address] [place] [address] Dedicated Regional Driver: Yonis Bower MD #### VELMA, VD25 #### [place] [address] Dedicated Regional Driver: Marciano March.Imm.Granulocyte<0.88Qokwtq4.00-0.30[facility] HospitalComment on above:Performed By: #### MG, URI, CDP, ADRIEN, CP #### [address] [place] [address] Dedicated Regional Driver: Yonis Bower MD #### EID25 #### [place] [address] Dedicated Regional Driver: Marciano March.Neutrophil (Seg)3.97 k/uLNormal1.50-8.10 [facility] HospitalComment on above:Performed By: #### MG, URI, CDP, ADRIEN, CP #### [address] [place] [address] Dedicated Regional Driver: Yonis Bower MD #### EID25 #### [place] [address] Dedicated Regional Driver: Gato Baldwin MDBasophils/100 WBC (Bld)1 %Normal0-2MC[facility] Clinic Mercy HospitalComment on above:Performed By: #### MG, URI, CDP, ADRIEN, CP #### [address] [place] [address] Dedicated Regional Driver: Yonis Bower MD #### EID25 #### [place] [id number] Dedicated Regional Driver: Gato Baldwin MDEosinophils (Bld) [#/Vol]0.12 10*3/uLNormal 0.00-0.44[facility] HospitalComment on above:Performed By: #### MG, URI, CDP, ADRIEN, CP #### [address] [place] [address] Dedicated Regional Driver: Yonis Bower MD #### GLYHGB, VD25 #### [place] [address] Dedicated Regional Driver: Gato Baldwin MDEosinophils/100 WBC (Bld)1 %Normal1-4[facility] HospitalComment on above:Performed By: #### MG, URI, CDP, ADRIEN, CP #### [address] [place] [address] Dedicated Regional Driver: Yonis Bower MD #### VELMA, VD25 #### [place] [address] Dedicated Regional Driver: Gato Baldwin MDErythrocyte distribution width (RBC) [Ratio]13.5 %Ssotdq05.8-14.4[facility] HospitalComment on above:Performed By: #### MG, URI, CDP, ADRIEN, CP #### [address] [place] [address] Dedicated Regional Driver: Yonis Bower MD #### GLYHGDulce, VD25 #### [place] [address] Dedicated Regional Driver: Gato Baldwin MDHematocrit (Bld) [Volume fraction]41.3 %Normal 36.3-47.1[facility] HospitalComment on above:Performed By: #### MG, URI, CDP, ADRIEN, CP #### [address] [place] [id number] Dedicated Regional Driver: Yonis Bower MD #### GLYHGB, VD25 #### [address] [address] Dedicated Regional Driver: Gato Baldwin MDHemoglobin (Bld) [Mass/Vol]12.9 g/dLNormal 11.9-15.1[facility] hospitaly Johnson Memorial HospitalComment on above:Performed By: #### MG, URI, CDP, ADRIEN, CP #### [address] [place] [id number] Dedicated Regional Driver: Yonis Bower MD #### GLYHGDulce, VD25 #### [address] [address] Dedicated Regional Driver: Gato Baldwin MDImmature granulocytes/100 WBC (Bld)0 %Normal0 [facility] HospitalComment on above:Performed By: #### MG, URI, CDP, ADRIEN, CP #### [address] [place] [address] Dedicated Regional Driver: Yonis Bower MD #### VELMA, VD25 #### [address] [address] Dedicated Regional Driver: Gato Baldwin MDLymphocytes (Bld) [#/Vol]2.81 10*3/uLNormal 1.10-3.70[facility] HospitalComment on above:Performed By: #### MG, URI, CDP, ADRIEN, CP #### [address] [place], [place] 715[address]83 Dedicated Regional Driver: Yonis Bower MD #### GLYHGB, VD25 #### [address] [id number] Dedicated Regional Driver: Gato Baldwin MDLymphocytes/100 WBC (Bld)34 %Yrmtep90-26EbheaCleveland Clinic Fairview HospitalComment on above:Performed By: #### MG, URI, CDP, ADRIEN, CP #### [address] [place], [place] 9257683 Dedicated Regional Driver: Yonis Bower MD #### GLYHGB, VD25 #### [address] [address] Dedicated Regional Driver: SENIA March (RBC) [Entitic mass]31.4 zrSddzfn45.2-33.5 [facility] HospitalComment on above:Performed By: #### MG, URI, CDP, ADRIEN, CP #### [address] [place], [place] 5968483 Dedicated Regional Driver: Yonis Bower MD #### SUSANNAHB, VD25 #### [address] [address] Dedicated Regional Driver: SENIA MarchC (RBC) [Mass/Vol]31.2 g/uFVwzkik88.4-34.8 [facility] HospitalComment on above:Performed By: #### MG, URI, CDP, ADRIEN, CP #### [address] [place], [place] 017[address]83 Dedicated Regional Driver: Yonis Bower MD #### GLYHGB, VD25 #### [address] [address] Dedicated Regional Driver: LUI March (RBC) [Entitic vol]100.5 jXEkryap19.6-102.9 [facility] HospitalComment on above:Performed By: #### MG, URI, CDP, ADRIEN, CP #### [address] [place], [place] 830[address]83 Dedicated Regional Driver: Yonis Bower MD #### GLYHGB, VD25 #### [address] [address] Dedicated Regional Driver: Gato Baldwin, MDMonocytes (Bld) [#/Vol]1.36 10*3/uLHigh0.10-1.20 [facility] HospitalComformerly [facility] on above:Performed By: #### MG, URI, CDP, ADRIEN, CP #### [address] [place], [place] 1584183 Dedicated Regional Driver: Yonis Bower MD #### GLYHGB, VD25 #### [address] [id number] Dedicated Regional Driver: Gato Baldwin MDMonocytes/100 WBC (Bld)16 %High3-12[facility] HospitalComment on above:Performed By: #### MG, URI, CDP, ADRIEN, CP #### [address] [place] [address]183 Dedicated Regional Driver: Yonis Bower MD #### GLYHANSAB, VD25 #### [address] [id number] Dedicated Regional Driver: Gato Baldwin MDNeutrophil (Seg)48 %Nduyet24-38JzydtCleveland Clinic Fairview HospitalComment on above:Performed By: #### MG, URI, CDP, ADRIEN, CP #### [address] [place], [place] 3760283 Dedicated Regional Driver: Yonis Bower MD #### GLYHGB, VD25 #### [address] [address] Dedicated Regional Driver: Gato Baldwin MDNRBC Automated0.0 per 100 WBCNormal0.0[facility] HospitalComformerly [facility] on above:Performed By: #### MG, URI, CDP, ADRIEN, CP #### [address] [place], [place] 059[address]83 Dedicated Regional Driver: Yonis Bower MD #### GLYHGB, VD25 #### [address] [address] Dedicated Regional Driver: Porter March mean volume (Bld) [Entitic vol]10.6 fL Normal8.1-13.5[facility] HospitalComment on above:Performed By: #### MG, URI, CDP, ADRIEN, CP #### [address] [place] [address] Dedicated Regional Driver: Yonis Bower MD #### GLYHGB, VD25 #### [address] [address] Dedicated Regional Driver: Earl March (Bld) [#/Vol]294 10*3/dHYkvorf065-599 [facility] HospitalComment on above:Performed By: #### MG, URI, CDP, ADRIEN, CP #### [address] [place] [address] Dedicated Regional Driver: Yonis Bower MD #### GLYTREVOR, VD25 #### [place] [address] Dedicated Regional Driver: MIRTA March (Bld) [#/Vol]4.11 10*6/uLNormal3.95-5.11 [facility] HospitalComment on above:Performed By: #### MG, URI, CDP, ADRIEN, CP #### [address] [place] [address] Dedicated Regional Driver: Yonis Bower MD #### GLYHGB, VD25 #### [place] [address] Dedicated Regional Driver: Gato Baldwin MDBC (Bld) [#/Vol]8.3 10*3/uLNormal3.5-11.3MC[facility] Clinic Mercy HospitalComment on above:Performed By: #### MG, URI, CDP, ADRIEN, CP #### [address] [place], [place] 696[address]83 Dedicated Regional Driver: Yonis Bower MD #### GLYHGB, VD25 #### [address] [address] Dedicated Regional Driver: ELLIE Marchomp Metabolic Profon 47-08-8306Jmzbxns [Mass/Vol]3.8 g/dLNormal3.5-5.2MCleveland Clinic Mercy HospitalComment on above:Performed By: #### MG, URI, CDP, ADRIEN, CP #### [address] [place] [address]183 Dedicated Regional Driver: Yonis Bower MD #### GLYHGDulce, VD25 #### [address] [address] Dedicated Regional Driver: Gato Baldwin MDAlbumin/Glob Ratio1.7Hvttqg7.0-2.5[facility] HospitalComment on above:Performed By: #### MG, URI, CDP, ADRIEN, CP #### [address] [place] 37[address]183 Dedicated Regional Driver: Yonis Bower MD #### VELMA, VD25 #### [address] [address] Dedicated Regional Driver: Sahara March Phos89 U/BBlehng40-964KvtufCleveland Clinic Fairview HospitalComment on above:Performed By: #### MG, URI, CDP, ADRIEN, CP #### [address] [place] 37[address]183 Dedicated Regional Driver: Yonis Bower MD #### GLYHGB, VD25 #### [address] [address] Dedicated Regional Driver: Gato Baldwin MDALT [Catalytic activity/Vol]15 U/LNormal5-33 [facility] HospitalComformerly [facility] on above:Performed By: #### MG, URI, CDP, ADRIEN, CP #### [address] [place], [place] [address] Dedicated Regional Driver: Yonis Bower MD #### GLYHGB, VD25 #### [place] [address] Dedicated Regional Driver: Cosme March gap [Moles/Vol]9 mmol/LNormal9-17[facility] HospitalComment on above:Performed By: #### MG, URI, CDP, ADRIEN, CP #### [address] [place] [address] Dedicated Regional Driver: Yonis Bower MD #### GLYTREVOR, VD25 #### [place] [address] Dedicated Regional Driver: GERA March [Catalytic activity/Vol]17 U/LNormal<32[facility] HospitalComment on above:Performed By: #### MG, URI, CDP, ADRIEN, CP #### [address] [place] [id number] Dedicated Regional Driver: Yonis Bower MD #### GLYTREVOR, VD25 #### [place] [address] Dedicated Regional Driver: Gato Baldwin MDBilirubin [Mass/Vol]0.5 mg/dLNormal0.3-1.2MC[facility] Clinic Mercy HospitalComment on above:Performed By: #### MG, URI, CDP, ADRIEN, CP #### [address] [place] [id number] Dedicated Regional Driver: Yonis Bower MD #### GLYHGB, VD25 #### [place] [id number] Dedicated Regional Driver: Gato Madoff, MDBUN/CRE Oezjj76Nytr4-56IhdjnCleveland Clinic Fairview Hospital Comment on above:Performed By: #### MG, URI, CDP, ADRIEN, CP #### [address] [place] [address] Dedicated Regional Driver: Yonis Bower MD #### VELMA, VD25 #### [place] [address] Dedicated Regional Driver: ELLIE Marchalcium [Mass/Vol]9.4 mg/dLNormal8.6-10.4[facility] HospitalComment on above:Performed By: #### MG, URI, CDP, ADRIEN, CP #### [address] [place] [address] Dedicated Regional Driver: Yonis Bower MD #### EID25 #### [place] [address] Dedicated Regional Driver: ELLIE Marchhloride [Moles/Vol]102 mmol/SQkndwv41-739TrbjgCleveland Clinic Fairview HospitalComment on above:Performed By: #### MG, URI, CDP, ADRIEN, CP #### [address] [place] [id number] ( Dedicated Regional Driver: Yonis Bower MD #### EID25 #### [place] [address] Dedicated Regional Driver: ELLIE MarchO2 [Moles/Vol]29 mmol/CVjxyet34-63NoedyCleveland Clinic Fairview HospitalComment on above:Performed By: #### MG, URI, CDP, ADRIEN, CP #### [address] [place] [id number] Dedicated Regional Driver: Yonis Bower MD #### VELMA, VD25 #### [address] [id number] Dedicated Regional Driver: ELLIE Marchreatinine [Mass/Vol]0.7 mg/dLNormal0.5-0.9[facility] HospitalComformerly [facility] on above:Performed By: #### MG, URI, CDP, ADRIEN, CP #### [address] [place], [place] [id number] Dedicated Regional Driver: Yonis Bower MD #### VELMA, VD25 #### [place] [address] [place], [place] [phone] Dedicated Regional Driver: Gato Baldwin MDGFR/1.73 sq M.predicted among non-blacks MDRD (S/P/Bld) [Vol rate/Area]mL/min/{1.73_m2}Normal>60[facility] Fairview HospitalComment on above:Result Comment: These results are [...] #### MG, URI, CDP, ADRIEN, CP #### [address] [place] [id number] Dedicated Regional Driver: Yonis Bower MD #### EID25 #### [facility] [employer] [facility]7 [place], [place] 1056108 Dedicated Regional Driver: Gato Baldwin MDGlucose [Mass/Vol]79 mg/hGDormus90-03QveyaCleveland Clinic Mercy HospitalComment on above:Performed By: #### MG, URI, CDP, ADRIEN, CP #### [address] [place] [address] Dedicated Regional Driver: Yonis Bower MD #### VELMA, VD25 #### [facility] [employer] [facility]4 [place] [address] Dedicated Regional Driver: SIRIA Marchotassium [Moles/Vol]4.3 mmol/LNormal3.7-5.3 [facility] HospitalComment on above:Performed By: #### MG, URI, CDP, ADRIEN, CP #### [address] [place] [address] Dedicated Regional Driver: Yonis Bower MD #### VELMA, VD25 #### [address] [address] Dedicated Regional Driver: Gato Baldwin MDProtein [Mass/Vol]6.8 g/dLNormal6.4-8.3MCleveland Clinic Mercy HospitalComment on above:Performed By: #### MG, URI, CDP, ADRIEN, CP #### [address] [place] [address] Dedicated Regional Driver: Yonis Bower MD #### VELMA, VD25 #### [place] [address] Dedicated Regional Driver: SYED Marchodium [Moles/Vol]140 mmol/DCvnomz242-864ZqcoxCleveland Clinic Fairview HospitalComment on above:Performed By: #### MG, URI, CDP, ADRIEN, CP #### [address] [place] 3789183 Dedicated Regional Driver: Yonis Bower MD #### GLYTREVOR, VD25 #### [address] [phone] Dedicated Regional Driver: Gato Baldwin MDUrea nitrogen [Mass/Vol]16 mg/dLNormal6-20[facility] Fairview HospitalComment on above:Performed By: #### MG, URI, CDP, ADRIEN, CP #### [address] [place] 3789183 Dedicated Regional Driver: Yonis Bower MD #### GLYHGB, VD25 #### [employer] [address] [place] [address] Dedicated Regional Driver: Gato Baldwin MDHemoglobin A1Con 02-84-3305Bzrxiet [Mass/Vol]111 mg/dLNormalMercy Health West Hospital on above:Result Comment: The ADA and AACC recommend providing the estimated average glucose result to permit better patient understanding of their HBA1c result.Performed By: #### MG, URI, CDP, ADRIEN, CP #### [address] [place], [place] 3577283 Dedicated Regional Driver: Yonis Bower MD #### GLYHGB, VD25 #### [facility] [employer] [address] [place] [address] Dedicated Regional Driver: Gato Baldwin MDHbA1c (Bld) [Mass fraction]5.5 %Normal4.0-6.0 [facility] HospitalComment on above:Performed By: #### MG, URI, CDP, ADRIEN, CP #### [address] [place] [address] Dedicated Regional Driver: Yonis Bower MD #### ESDRASHGDulce, VD25 #### [facility] [employer] [address] [place] [address] [id number] Dedicated Regional Driver: Gato Baldwin MDLipid Profileon 65-49-5222Ykpyoyeymap [Mass/Vol] 168 mg/dLNormal<200[facility] on above:Result Comment: Cholesterol Guidelines: <200 Desirable 200-240 Borderline >240 UndesirablePerformed By: #### MG, URI, CDP, ADRIEN, CP #### [address] [place] [address] Dedicated Regional Driver: Yonis Bower MD #### GLYHGB, VD25 #### [address] [id number] Dedicated Regional Driver: Gato Madoff, MDCholesterol in HDL [Mass/Vol]53 mg/dLNormal>40 [facility] Centerment on above:Result Comment: HDL Guidelines: <40 Undesirable 40-59 Borderline >59 DesirablePerformed By: #### MG, URI, CDP, ADRIEN, CP #### [address] [place] [address] Dedicated Regional Driver: Yonis Bower MD #### VELMA VD25 #### [employer] [address] [place] [phone] Dedicated Regional Driver: ELLIE Marchholesterol in LDL [Mass/Vol]78 mg/dLNormal0-130 [facility] HospitalComformerly [facility] on above:Result Comment: LDL Guidelines: <100 Desirable 100-129 Near to/above Desirable 130-159 Borderline >159 Undesirable Direct (measured) LDL and calculated LDL are not interchangeable tests.Performed By: #### MG, URI, CDP, ADRIEN, CP #### [address] [place] [phone] Dedicated Regional Driver: Yonis Bower MD #### VELMA VD25 #### [facility] [address] [place] [address] [id number] Dedicated Regional Driver: Jessie Marchststella.total/Cholesterol in HDL [Mass ratio]3.2 {ratio}Normal<5[facility] HospitalComment on above:Performed By: #### MG, URI, CDP, ADRIEN, CP #### [address] [place] 3789183 Dedicated Regional Driver: Yonis Bower MD #### VELMA, VD25 #### [facility] Center[facility] [address] [place] [address] [phone] Dedicated Regional Driver: Gato Baldwin MDTriglyceride [Mass/Vol]186 mg/dLHigh<150Mer[facility] Memorial HospitalComment on above:Result Comment: Triglyceride Guidelines: <150 Desirable 150-199 Borderline 200-499 High >499 Very high Based on AHA Guidelines for fasting triglyceride, March 2012.Performed By: #### MG, URI, CDP, ADRIEN, CP #### [address] [place] [address] Dedicated Regional Driver: Yonis Bower MD #### VELMA, VD25 #### [address] [id number] Dedicated Regional Driver: Gato Baldwin MDMagnesiumon 78-62-5886Kkrelqjsn [Mass/Vol]2.0 mg/dLNormal1.6-2.6Mer[facility] Johnson Memorial HospitalComment on above:Performed By: #### MG, URI, CDP, ADRIEN, CP #### [address] [place] 3789183 Dedicated Regional Driver: Yonis Bower MD #### VELMA, VD25 #### [place] [address] Dedicated Regional Driver: Gato Baldwin MDPhosphorus, Inorg.on 36-66-8696Sfhrskwwml, Inorg.3.1 mg/dLNormal2.6-4.5MerDay Kimball HospitalComment on above:Performed By: #### MG, URI, CDP, ADRIEN, CP #### [address] [place] [address] Dedicated Regional Driver: Yonis Bower MD #### VELMA, VD25 #### [facility] [employer] [address] [place] [address] Dedicated Regional Driver: Gato Baldwin MDCOLUMBIA BASIN [facility] w/reflex to FT4on 31-93-2643Iqxscwj Stim. Horm.1.28 uIU/mLNormal0.30-5.00[facility] HospitalComment on above:Performed By: #### TSHX #### [address] [place] 3789183 Dedicated Regional Driver: VERONICA Rodriguez w/Reflex Cultureon 06-47-8445Pozdlclcm, SemiQt,UrNegativeNormalNEGMerSt. Francis Hospital HospitalComment on above:Performed By: #### UAX, UMICAO #### [facility] [address] [place], [place] 7563383 Dedicated Regional Driver: Mary Jane Rodriguez, UrineNegativeCoshocton Regional Medical Center Comment on above:Performed By: #### UAX, UMICAO #### [facility] [address] [place], [place] 4641083 Dedicated Regional Driver: ELLIE Rodriguezlarity (ClearNoalCLEARCleveland Clinic Fairview Hospital Comment on above:Performed By: #### UAX, UMICAO #### [address] [place], [place] 4202683 Dedicated Regional Driver: ELLIE Rodriguezolor (U)YellowNormalYCoshocton Regional Medical Center Comment on above:Performed By: #### UAX, UMICAO #### [address] [place], [place] 4978283 Dedicated Regional Driver: Yonis Bower MDGlucose Ql (U)NegativeNormalNEGMerSt. Francis Hospital HospitalComment on above:Performed By: #### UAX, UMICAO #### [facility] [address] [place] [address] Dr[place], [place] [phone] Dedicated Regional Driver: Yonis Bower MDKetones Ql (U)NegativeNormalNEGMerDay Kimball HospitalComment on above:Performed By: #### UAX, UMICAO #### [facility] [address] [place] [address] [place] [address] Dedicated Regional Driver: Yonis Bower MDLeukocyte esterase Test strip Ql (U)NegativeNormal NEGMerDay Kimball HospitalComment on above:Performed By: #### UAX, UMICAO #### [facility] [address] [place] [address] [place] [address] Dedicated Regional Driver: Yoins Bower MDNitrite,UrNegativeNormalNEGCleveland Clinic Fairview Hospital Comment on above:Performed By: #### UAX, UMICAO #### [address] [place] [address] Dedicated Regional Driver: SIRIA Rodriguez,Ur6.3Vyzpvj9.0-9.0[facility] HospitalComment on above:Performed By: #### UAX, UMICAO #### [address] [place] [address] Dedicated Regional Driver: SIRIA Rodriguezrotein Ql (U)NegativeNormalNEGCleveland Clinic Fairview HospitalComment on above:Performed By: #### BRAD RODRIGUEZ #### [facility] [address] [place] [address] Dr[place], [place] [phone] Dedicated Regional Driver: SYED Rodriguezpec. [place],Ur1.828Ternvg4.010-1.020C[facility] HospitalComment on above:Performed By: #### BRAD RODRIGUEZ #### [address] [place], [place] 7233183 Dedicated Regional Driver: Yonis Bower MDUrobilinogen,UrNormalNormal0.0-1.0[facility] HospitalComment on above:Performed By: #### BRAD RODRIGUEZ #### [facility] [address] [place] [address] [place], [place] 1112483 Dedicated Regional Driver: Yonis Bower MDUric Acidon 48-85-8279Tlqkb [Mass/Vol]4.4 mg/dL Normal2.4-5.7[facility] HospitalComment on above:Performed By: #### MG, URI, CDP, ADRIEN, CP #### [facility] [address] [place] [address] [place] [place], [place] [phone] Dedicated Regional Driver: Yonis Bower MD #### GLYHGB, VD25 #### [employer] [address] [facility], [place] 5944808 Dedicated Regional Driver: Gato Baldwin MDUrinalysis,Microon 17-68-8764FkspubiwUKCIL AbnormalNONEMeHospital for Special CareComment on above:Performed By: #### UAX, UMICAO #### [facility] [address] [place] [address] Dr. [place], [place] 6061683 Dedicated Regional Driver: Yonis Bower MDEpithelial cells LM Ql (Urine sed)0 TO 9Amnznd8-74 [facility] HospitalComment on above:Performed By: #### UAX, UMICAO #### [facility] [address] [place] [address] Dr[place], [place] 4905983 Dedicated Regional Driver: Blanca Rodriguez RBC'sNoneNormal0-2[facility] Comment on above:Performed By: #### UAX, UMICAO #### [address] [place] [address] Dedicated Regional Driver: Blanca Rodriguez WBC's0 TO 0Xlpmrb9-5TirakCleveland Clinic Fairview Hospital Comment on above:Performed By: #### UAX, UMICAO #### [address] [place], [place] 4818983 Dedicated Regional Driver: Yonis Bower MDVitamin D 25 OHon 20-37-9326Rqmcuoi D 25 OH28.0 ng/mLLow>29.9[facility] HospitalComment on above:Result Comment: Reference Range: Vitamin D status Range Deficiency <20 ng/mL Mild Deficiency 20-30 ng/mL Sufficiency 30-100 ng/mL Toxicity >100 ng/mLPerformed By: #### MG, URI, CDP, ADRIEN, CP #### [facility] [address] [place] [address] [place] [address] Dedicated Regional Driver: Yonis Bower MD #### GLYHGB, VD25 #### [employer] [address] [place] [address] Dedicated Regional Driver: ELLIE Marchomplete Blood Count with Auto Diffon 03-22-2022 ALVA#: 0.1Pjogrc6.0-0.1Mer[facility] West HospitalComment on above:Performed By: #### CBCAD #### [address] [address] Ph. [phone]/100 WBC (Bld)1 %Normal0-1[facility] Comment on above:Performed By: #### CBCAD #### [place] [address] Ph. [phone] (Bld) [#/Vol]0.2 10*3/uLNormal0.0-0.5Mer[facility] West HospitalComment on above:Performed By: #### CBCAD #### [address] [address] Ph. [phone]/100 WBC (Bld)3 %Normal0-5[facility] Comment on above:Performed By: #### CBCAD #### [address] [address] Ph. [phone] distribution width (RBC) [Ratio]13.6 %Normal 11.5-14.5Mer[facility] West HospitalComment on above:Performed By: #### CBCAD #### [address] [address] Ph. [phone] (Bld) [Volume fraction]38.7 %Sbkson14.0-47.0[facility] HospitalComment on above:Performed By: #### CBCAD #### [address] [address] Ph. [phone] (Bld) [Mass/Vol]12.9 g/nVAnmobc81.0-16.0WChildren's Hospital of ColumbusComment on above:Performed By: #### CBCAD #### [address] [address] Ph. [phone] (Bld) [#/Vol]1.4 10*3/uLNormal1.0-4.0WChildren's Hospital of ColumbusComment on above:Performed By: #### CBCAD #### [address] [address] Ph. [phone]/100 WBC (Bld)24 %Xymppq25-06KvcgfqrChildren's Hospital of ColumbusComment on above:Performed By: #### CBCAD #### [address] [address] Ph. [phone] (RBC) [Entitic mass]31.9 fkQakuhh54.0-35.0WChildren's Hospital of ColumbusComment on above:Performed By: #### CBCAD #### [address] [address] Ph. [phone] (RBC) [Mass/Vol]33.3 g/hMKbgcmz15.0-36.0WChildren's Hospital of ColumbusComment on above:Performed By: #### CBCAD #### [address] [address] Ph. [phone] (RBC) [Entitic vol]96 rVZofgpf45-720BzyzzfzChildren's Hospital of ColumbusComment on above:Performed By: #### CBCAD #### [address] [address] Ph. [phone] (Bld) [#/Vol]0.7 10*3/uLNormal0.3-1.0WChildren's Hospital of ColumbusComment on above:Performed By: #### CBCAD #### [place] [address] Ph. [phone]/100 WBC (Bld)11 %Normal1-15WChildren's Hospital of Columbus Comment on above:Performed By: #### CBCAD #### [address] [address] Ph. [phone] (Bld) [#/Vol]3.8 10*3/uLNormal1.8-7.7WChildren's Hospital of ColumbusComment on above:Performed By: #### CBCAD #### [place] 7[address]751 Ph. [phone]/100 WBC (Bld)62 %Kzdgmz25-99OnjmfrrChildren's Hospital of ColumbusComment on above:Performed By: #### CBCAD #### [place] [address] Ph. [phone] mean volume (Bld) [Entitic vol]11.8 fLNormal9.4-12.3 [facility] HospitalComment on above:Performed By: #### CBCAD #### [address] [address] Ph. [phone] (Bld) [#/Vol]275 10*3/eNKtrsrb717-545KrehuwlChildren's Hospital of ColumbusComment on above:Performed By: #### CBCAD #### [address] [address] Ph. [phone] (Bld) [#/Vol]4.05 10*6/uLLow4.20-5.40WChildren's Hospital of ColumbusComment on above:Performed By: #### CBCAD #### [address] [address] Ph. [phone] (Bld) [#/Vol]6.1 10*3/uLNormal3.7-11.0W[facility]andot Memorial HospitalComment on above:Performed By: #### CBCAD #### [place] [address] Ph. [phone] Metabolic Panelon 76-07-3008Wzuxqum [Mass/Vol]3.7 g/dLNormal3.5-5.0WChildren's Hospital of ColumbusComment on above:Performed By: #### VITD, VRI027, CMP, LIPD #### [place] [address] Ph. [phone] [Catalytic activity/Vol]92 U/FDcznnq94-676ZcsmuljChildren's Hospital of ColumbusComment on above:Performed By: #### VITD, JIE377, CMP, LIPD #### [place] [address] Ph. [phone] [Catalytic activity/Vol]14 U/LNormal0-35WChildren's Hospital of ColumbusComment on above:Performed By: #### VITD, CUF128, CMP, LIPD #### [place] [address] Ph. [phone] [Catalytic activity/Vol]22 U/GZhauax46-98NxzvvraChildren's Hospital of ColumbusComment on above:Performed By: #### VITD, AMB552, CMP, LIPD #### [place] [address] Ph. [phone] [Mass/Vol]0.6 mg/dLNormal0.2-1.3WChildren's Hospital of ColumbusComment on above:Performed By: #### VITD, ZPI620, CMP, LIPD #### [place] [address] Ph. [phone] [Mass/Vol]9.5 mg/dLNormal8.4-10.2WChildren's Hospital of ColumbusComment on above:Performed By: #### VITD, BDB536, CMP, LIPD #### [place] 7235751 Ph. [phone] [Moles/Vol]106 mmol/DHjzehf15-674HbxngebMercy Health West HospitalComment on above:Performed By: #### VITD, UOO160, CMP, LIPD #### [address] [address] Ph. [phone] [Moles/Vol]26 mmol/GJutbph58-25LzhqbvyChildren's Hospital of Columbus Comment on above:Performed By: #### VITD, RPY361, CMP, LIPD #### [place] [address] Ph. [phone] [Mass/Vol]0.64 mg/dLNormal0.52-1.04Mer[facility] West HospitalComment on above:Performed By: #### VITD, KFO784, CMP, LIPD #### [place] [address] Ph. [phone]/1.73 sq M.predicted among non-blacks MDRD (S/P/Bld) [Vol rate/Area]100 mL/min/{1.73_m2}Normal>60WChildren's Hospital of ColumbusComment on above:Result Comment: Stage 1 Kidney damage (e.g., protein in the urine) with normal GFR >=90\X0D0A\Stage 2 Kidney damage with mild decrease in GFR 60- 89\X0D0A\Stage 3a Moderate decrease in GFR 45-59\X0D0A\Stage 3b Moderate decrease in GFR 30-44\X0D0A\Stage 4 Severe reduction in GFR 15-29\X0D0A\Stage 5 Kidney failure <15Performed By: #### VITD, WLM930, CMP, LIPD #### [place] 7[address]751 Ph. [phone] [Mass/Vol]104 mg/mXYytx54-365BqdvxojChildren's Hospital of Columbus Comment on above:Performed By: #### VITD, DJW744, CMP, LIPD #### [place] [address] Ph. [phone] [Moles/Vol]3.9 mmol/LNormal3.6-5.0Mer[facility] HospitalComment on above:Performed By: #### VITD, CNN267, CMP, LIPD #### [place] [address] Ph. [phone] [Mass/Vol]6.4 g/dLNormal6.3-8.2WChildren's Hospital of Columbus Comment on above:Performed By: #### VITD, HXN983, CMP, LIPD #### [place] [address] Ph. [phone] [Moles/Vol]141 mmol/EJghutp699-923JamnsydChildren's Hospital of ColumbusComment on above:Performed By: #### VITD, GAR077, CMP, LIPD #### [place] [address] Ph. [phone] nitrogen [Mass/Vol]7 mg/dLNormal7-17WChildren's Hospital of ColumbusComment on above:Performed By: #### VITD, PDO750, CMP, LIPD #### [place] [address] Ph. [phone] Panelon 34-61-4096Vlcvuwfzjru [Mass/Vol]142 mg/dLNormal 100-200WChildren's Hospital of ColumbusComment on above:Order Comment: Is Patient Fasting?/# of Hours->6Result Comment: <200 mg/dL is recommended cholesterol level.Performed By: #### VITD, AUO003, CMP, LIPD #### [place] [address] Ph. [phone] in HDL [Mass/Vol]46 mg/dLLow>60WChildren's Hospital of ColumbusComment on above:Order Comment: Is Patient Fasting?/# of Hours->6 Performed By: #### VITD, QKB787, CMP, LIPD #### [place] [address] Ph. [phone] in LDL [Mass/Vol]68 mg/wLEnawug19-630ExfoawzProMedica Bay Park Hospital on above:Order Comment: Is Patient Fasting?/# of Hours->6Performed By: #### VITD, MTI744, CMP, LIPD #### [place] [address] Ph. [phone].total/Cholesterol in HDL [Mass ratio]3 {ratio}Normal 1-5[facility] on above:Order Comment: Is Patient Fasting?/# of Hours->6Performed By: #### VITD, MPF754, CMP, LIPD #### [place] [address] Ph. [phone] [Mass/Vol]140 mg/jEZtvnmi46-367GouyilaProMedica Bay Park Hospital on above:Order Comment: Is Patient Fasting?/# of Hours->6 Performed By: #### VITD, ALI008, CMP, LIPD #### [place] [address] Ph. [phone] Reflex FT4on 62-03-8517XBI5.526 mIU/mLNormal0.470-4.680 [facility] on above:Performed By: #### VITD, LUF055, CMP, LIPD #### [place] [address] Ph. [phone] D, 25 Hydroxyon 46-42-6461RIGL56 ng/zMRcezaw30-502 [facility] on above:Result Comment: EXPECTED VALUES\X0D0A\X0D0A\DEFICIENT: <20 ng/mL\X0D0A\INSUFFICIENT: 20-<30 n g/mL\X0D0A\SUFFICIENT: 30-100 ng/mL\X0D0A\POTENTIAL TOXICITY: >100 ng/mL Performed By: #### VITD, BOQ703, CMP, LIPD #### [place] [address] Ph. [phone] Vital Signs Date TimeVital SignValuePerforming SyhobdmzmBdwcfvhq96-20-3518 09:08-0400Body ttuezw441.7 [facility] Work Phone: [phone] [place], [place] 9575710-28-2025 09:08-0400Body mass index (BMI) [Ratio]32.23 kg/n6Jcsqxfpp [facility] Work Phone: [address] [place], [place] 1451210-28-2025 09:08-0400Body weight 96.16 kgSaunc health wayne [facility] Work Phone: [phone] [place], [place] 9575710-18-2025 04:00-0400Diastolic blood weobyylt77 mm[Hg]Jigar Reynolds MD Work Phone: [phone]10-18-2025 04:00-0400Heart rate96 /Jose Reynolds MD Work Phone: [address] [place], [place] 6246210-18-2025 04:00-0400Respiratory rate19 /Jose Reynolds MD Work Phone: [phone] [place], [place] 8106410-18-2025 04:00-9207MbZ4% (BldA) [Mass fraction]100 %Jigar Reynolds MD Work Phone: [phone] [place] [address] [employer] Ovqyod89-35-4264 04:00-0400Systolic blood amodzcfo680 mm[Hg]Jigar Reynolds MD Work Phone: [phone] [place], [place] 8106410-18-2025 00:23-0400Body height 172.7 cmJigar Reynolds MD Work Phone: [phone] [place], [place] 8106410-18-2025 00:20-0400Body qdglowqxwpn01.01 [degF]Jigar Reynolds MD Work Phone: [facility]10-08-2025 18:00-0400Diastolic blood ddtryxxy87 mm[Hg]Joaquín Baez MD Work Phone: [facility]10-08-2025 18:00-0400Heart rate75 /Bethany Baez MD Work Phone: [address] [place], [place] 1451210-08-2025 18:00-0400Systolic blood gelodgfr572 mm[Hg]Joaquín Baez MD Work Phone: [address] [place], [place] 1451210-08-2025 17:30-7770JzM8% (BldA) [Mass fraction]96 %Joaquín Baez MD Work Phone: [address] [place], [place] 1451210-08-2025 12:45-0400Respiratory rate19 /Bethany Baez MD Work Phone: [address] [place], [place] 1451210-08-2025 12:12-0400Body kxzjmhfrjwy24.5 [degF]Joaquín Baez MD Work Phone: [address] [place], [place] 1451210-08-2025 07:02-0400Body height 170.2 cmSneto Baez MD Work Phone: [address] [place], [place] 1451210-08-2025 07:02-0400Body mass index (BMI) [Ratio]34.46 kg/v2JfqolJoaquín Baez MD Work Phone: [address] [place] 1451210-08-2025 07:02-0400Body weight 99.79 kgJoaquín Baez MD Work Phone: [address] [place], [place] 1451210-06-2025 08:31-0400Body height 170.2 cmDennis Furlong DO Work Phone: [facility]10-06-2025 08:31-0400Body mass index (BMI) [Ratio]34.07 kg/p0Ccxcbq Furlong DO Work Phone: [facility]10-06-2025 08:31-0400Body ddoszsyzujk05.59 [degF]Jimmie Joyalong DO Work Phone: [facility] [employer] Lztyul68-92-0215 08:31-0400Body fbhynq53.7 kgDennis Mahnazlong DO Work Phone: [facility] Vccgdn42-19-5045 08:31-0400Diastolic blood wevdwmsx18 mm[Hg]Jimmie Mahnazlong DO Work Phone: [facility] Bcvrcu07-99-4308 08:31-0400Heart rate 67 /Aquilinois Mahnazlong DO Work Phone: [facility] Lwxwmu18-84-7061 08:31-0400 Respiratory rate20 /minDangeliais Mahnazlong DO Work Phone: [facility] Kvdycl12-73-0426 08:31-7077WoE0% (BldA) [Mass fraction]98 %Jimmie Joyalong DO Work Phone: [facility] Yejnhx76-13-1469 08:31-0400Systolic blood wnoglelf785 mm[Hg]Jimmie Joyalong DO Work Phone: [facility] Xydvdh18-42-6521 16:19-0400Body fozgul165.2 cmJimmie Joyalong DO Work Phone: [facility] [employer] Fhfmnf03-26-7898 16:19-0400Body mass index (BMI) [Ratio]34.45 kg/f3Oyiwxe Furlong DO Work Phone: [facility] Vujmji95-48-1836 16:19-0400Body ifgltnpyxmg63.11 [degF]Jimmie Joyalong DO Work Phone: [facility] [employer] Jfjrmv56-82-3760 16:19-0400Body fjcgoh05.79 kgDenalfredo Joyalong DO Work Phone: [facility] [employer] Nugbvr29-96-3285 16:19-0400Diastolic blood aucxekad00 mm[Hg]Jimmie Joyalong DO Work Phone: [facility] Tmjovv99-61-4004 16:19-0400Heart rate 76 /Boris Joyalong DO Work Phone: [facility] Yeqtbm46-50-0676 16:19-0400 Respiratory rate18 /minDangeliais Mahnazlong DO Work Phone: [facility] Uukxwe49-27-3866 16:19-9658CaY1% (BldA) [Mass fraction]97 %Jimmie Montgomeryng DO Work Phone: [facility] Cgyyts66-30-5522 16:19-0400Systolic blood gakkmfbn530 mm[Hg]Jimmie Montgomeryng DO Work Phone: [facility] Kqfwct82-23-3396 13:59-0400Body zzeqjc864.7 Ivanna Baez MD Work Phone: [facility] [employer] Gflnkh03-01-5105 13:59-0400Body mass index (BMI) [Ratio]32.36 kg/t7FonsjJoaquín Baez MD Work Phone: [facility] [employer] Qnollr09-31-3630 13:59-0400Body weight 96.53 kgJoaquín Baez MD Work Phone: [facility]06-05-2025 16:19-0400Body height 170.2 cmJimmie Montgomeryng DO Work Phone: [facility] Zmxysj22-01-3543 16:19-0400Body mass index (BMI) [Ratio]34.45 kg/r9YrocngJimmie Joyalong DO Work Phone: [facility] Jkjmzm62-02-2894 16:19-0400Body ghigxgglsfh97.9 [degF]Jimmie Montgomeryng DO Work Phone: [facility] Pqhtpu48-07-8551 16:19-0400Body bxulsw12.79 kgJimmie Montgomeryng DO Work Phone: [facility] Kzstxp06-15-2080 16:19-0400Diastolic blood mm[Hg]Jimmie Joyalong DO Work Phone: [facility] [employer] Fuuudg77-88-6514 16:19-0400Heart rate 85 /Aquilinois Furlong DO Work Phone: [facility]06-05-2025 16:19-0400 Respiratory rate18 /minDennis Furlong DO Work Phone: [facility]06-05-2025 16:19-8285SaK6% (BldA) [Mass fraction]97 %Jimmie Joyalong DO Work Phone: [facility] Yemepu42-38-7834 16:19-0400Systolic blood fdexbjaj309 mm[Hg]Jimmie Joyalong DO Work Phone: [facility] Mvfibc06-84-6188 16:32-0500Body zcohmf901.2 cmDenalfredo Joyalong DO Work Phone: [facility] Vpgyuk65-18-7853 16:32-0500Body mass index (BMI) [Ratio]35.44 kg/s3Wxxsbi Furlong DO Work Phone: [facility] Stmfaw24-82-5124 16:32-0500Body bvmxjeuqbsn34.2 [degF]Jimmie Joyalong DO Work Phone: [facility] Ifisnf35-68-0664 16:32-0500Body yfzhqs241.65 kgDenalfredo Joyalong DO Work Phone: [facility] Ningrc66-32-2300 16:32-0500Diastolic blood bbmvcqyy80 mm[Hg]Jimmie Joyalong DO Work Phone: [facility] Rhpqpp03-92-3522 16:32-0500Heart rate 58 /Boris Joyalong DO Work Phone: [facility] Bfrbuy31-06-6880 16:32-0500 Respiratory rate18 /minDangeliais Mahnazlong DO Work Phone: [facility]03-03-2025 16:32-6907FwO9% (BldA) [Mass fraction]96 %Jimmie Garcia DO Work Phone: [facility] Ncxjvr76-49-1549 16:32-0500Systolic blood thxatkne677 mm[Hg]Jimmie Garcia DO Work Phone: [facility] Yioksc64-71-1114 15:53-0400Body .2 cmJimmie Montgomeryng DO Work Phone: [facility] Lvczrj28-54-4027 15:53-0400Body mass index (BMI) [Ratio]33.14 kg/a8Cpaulialfredo Garcia DO Work Phone: [facility] Nxhyqz65-54-4690 15:53-0400Body jcedueihsom66.01 [degF]Jimmie Garcia DO Work Phone: [facility] Gpqluj51-17-4866 15:53-0400Body ezipfv07.98 kgJimmie Garcia DO Work Phone: [facility] Snydkq33-29-3897 15:53-0400Diastolic blood kglxaxpn83 mm[Hg]Jimmie Garcia DO Work Phone: [facility] Lwqryc31-59-7441 15:53-0400Heart rate 68 /minDennis Radha DO Work Phone: [facility] Nrzfxt98-03-0154 15:53-9655IdY2% (BldA) [Mass fraction]97 %Jimmie Garcia DO Work Phone: [facility] Xxnvhj41-97-1994 15:53-0400Systolic blood ylblmbnn460 mm[Hg]Jimmie Garcia DO Work Phone: [facility] Lishgb90-89-0725 18:41-0400Body oveihmnvfwe59.81 [degF][facility]09-15-2024 18:41-0400Diastolic blood tcwbiqxp16 mm[Hg][facility] TPMWLZ27-99-3037 18:41-0400Heart rate85 /minBON [facility]09-15-2024 18:41-0400Respiratory rate18 /minBON [facility]09-15-2024 18:41-5713ElY7% (BldA) [Mass fraction]98 %[facility] XZGGYS58-07-1709 18:41-0400Systolic blood mqtgxeri819 mm[Hg][facility]04-16-2024 15:12-0400Body fsbyvk225.1 cmJimmie JoyaRAI Care [facility] DCng DO Work Phone: [facility] Hzqxmu14-66-6596 15:12-0400Body mass index (BMI) [Ratio]39.59 kg/i5BnkoaqJimmie Joyalong DO Work Phone: [facility] Vggafh22-43-4429 15:12-0400Body zeyenuvixbs92.81 [degF]Jimmie Joyalong DO Work Phone: [facility] Ahjogc40-86-2890 15:12-0400Body .89 kgJimmie Joyalong DO Work Phone: [facility] Nkcqvg87-68-9998 15:12-0400Diastolic blood xoutcsmk23 mm[Hg]Jimmie Joyalong DO Work Phone: [facility] Njxoiv23-77-6471 15:12-0400Heart rate 62 /Boris Joyalong DO Work Phone: [facility] Scooce40-15-0265 15:12-0400 Respiratory rate18 /minDangeliais Mahnazlong DO Work Phone: [facility] Bsykcz44-51-8562 15:12-5404AmH5% (BldA) [Mass fraction]95 %Jimmie Joyalong DO Work Phone: [facility] Htkpmx53-73-7049 15:12-0400Systolic blood oonavnwn705 mm[Hg]Jimmie Joyalong DO Work Phone: [facility] Encounters Encounter DateEncounter TypeCare ProviderFacilityStart: 05-03-2025 End: 45-35-4724RzhvbrYrkf Cooper CMAProMedior Physicians Internal Medicine - Family MedicineStart: 04-27-2025 End: 12-37-8402Yoksse follow up visit related to original Iris Martínez Work Phone: [facility] OrthopedicsComment on above:History of total knee arthroplasty, left (Primary Dx); Acute postoperative pain of kneeStart: 04-27-2025 End: 06-37-2488eoavvinsbmTWLIKSTGSeton Medical Center HospitalComment on above:AnxietyStart: 04-27-2025 End: 05-28-7336Qkurumisbc hospital visit by Jordan Martínez Work Phone: [facility] RadiologyStart: 04-26-2025 End: 19-04-0249Fodzac OnlyJimmie Garcia DO Work Phone: [facility] - Family [facility] HospitalComment on above:Chronic bilateral low back pain without sciatica; AnxietyStart: 04-17-2025 End: 78-94-6126Mmaajvcum department patient visitJigar Reynolds MD Work Phone: [facility] Emergency DepartmentStart: 04-12-2025 End: 32-93-3809Jdluau OnlyJimmie Montgomeryng DO Work Phone: [facility] - [facility] MedicineStart: 04-07-2025 End: 80-82-7420iwecgqrkitXJTUXP FURLONGCare One At Rar[facility] HospitalStart: 04-07-2025 End: 03-59-6431Cnucwsnfvq hospital visit by Amairani Baez MD Work Phone: [facility] PeriopComment on above:Osteoarthritis of left knee, unspecified osteoarthritis typeStart: 04-05-2025 End: 43-10-5051Ldyvqt outpatient visit 15 minutesJimmie Garcia DO Work Phone: [facility] - Family MedicineComment on above:Pre-op evaluation (Primary Dx); Primary osteoarthritis of left knee; Mild intermittent asthma, unspecified whether complicated; Class 1 obesity due to excess calories with serious comorbidity and body mass index (BMI) of 34.0 to 34.9 in adultStart: 04-05-2025 End: 96-33-0441Xicjflwpczizu examination doneJimmie Garcia DO Work Phone: [facility] Center[facility] [employer] [employer] Work Phone: Start: 03-31-2025 End: 49-06-1107lyaxztdrjjVgha ProviderFacility:[facility] Hospitaltart: 03-25-2025 End: 78-13-9906Bizibm OnlyJimmie Garcia DO Work Phone: [facility] MedicineStart: 03-22-2025 End: 72-18-7563Vthxgb OnlyJimmie Garcia DO Work Phone: [facility] MedicineStart: 03-19-2025 End: 90-95-8062Texwij OnlyJimmie Garcia DO Work Phone: [facility] Internal Medicine [facility] MedicineStart: 03-15-2025 End: 31-43-5744Vwavoub encounter statusJimmie Garcia DO Work Phone: [facility] Center[facility] Work Phone: Start: 03-15-2025 End: 66-00-3531Xlyayqvl preventive med est patient 40-64yrsDennis Rochelle Garcia DO Work Phone: [facility] Internal Medicine [facility] GeorgiaComment on above:Well adult exam (Primary Dx); Class 1 obesity due to excess calories with serious comorbidity and body mass index (BMI) of 34.0 to 34.9 in adult; Generalized anxiety disorder; Encounter for screening mammogram for malignant neoplasm of breast; Screen for colon cancer; Need for vaccination; Need for shingles vaccine; Other acute recurrent sinusitis; Chronic bilateral low back pain without sciaticaStart: 03-08-2025 End: 81-43-3307zzfoyneaxyXreu ProviderFacility:[facility] HospitalStart: 03-08-2025 End: 18-17-5579ubrxwiseqsVodd ProviderFacility:[facility] HospitalStart: 90-77-3861whbsxdtbzeSYUFHBMary [facility] HospitalStart: 02-25-2025 Encounter for other preprocedural examinationSMethod[facility] Start: 02-09-2025 End: 95-62-9019XczjxjNatwgl Rochelle Joyarominang DO Work Phone: [facility] Family [facility] Centertart: 02-03-2025 End: 71-18-5165Ckrjhi outpatient new 60 Loi Baez MD Work Phone: [facility] OrthopedicsComment on above:Left knee pain, unspecified chronicity (Primary Dx)Start: 74-40-0759feppbnxjzbJYPOHVSt. Tammany Parish Hospitaltart: 02-03-2025 End: 77-39-8589Kaslhkfjub hospital visit by Amairani Baez MD Work Phone: [facility] RadiologyStart: 12-25-2024 End: 42-22-6316Ajzjbk OnlyJimmie Rochelle Joyarominang DO Work Phone: [facility] - Family MedicineComment on above:Primary osteoarthritis of left knee (Primary Dx)Start: 12-15-2024 End: 20-51-4185Edlmwt OnlyJimmie Rochelle Joyarominang DO Work Phone: [facility] - Family MedicineComment on above:Chronic bilateral low back pain without sciatica (Primary Dx)Start: 12-03-2024 End: 40-36-4849Xveiww outpatient visit 25 minutesJimmie Rochelle Joyarominang DO Work Phone: [facility] Medicine - Family MedicineComment on above:Class 1 obesity due to excess calories with serious comorbidity and body mass index (BMI) of 34.0 to 34.9 in adult (Primary Dx); Tremor; Recurrent major depressive disorder, remission status unspecified; Chronic bilateral low back pain without sciatica; Primary osteoarthritis of left knee; AnxietyStart: 11-19-2024 End: 89-56-3879vfennacmtiDzmgcdValerie Hampton MDFacility:[facility] Centertart: 11-14-2024 End: 87-68-5621LsyxdwHfkuey G Furlong DO Work Phone: [facility] - [facility] MedicineStart: 11-11-2024 End: 21-49-0586Xigcno OnlyDennis G Furlong DO Work Phone: [facility] - [facility] MedicineStart: 11-05-2024 End: 61-34-8790HlblnrZskwhd G Furlong DO Work Phone: [facility] - [facility] MedicineStart: 10-13-2024 End: 54-69-5736Weswcg OnlyDennis G Furlong DO Work Phone: [facility] - [facility] CenterComment on above:Class 1 obesity due to excess calories with serious comorbidity and body mass index (BMI) of 33.0 to 33.9 in adult (Primary Dx) Start: 62-27-2998hwqpawowfoVaimgs Ann Morris LIVESTOCK FARM MANAGER-CNPFacility:[facility] [place]Start: 09-24-2024 End: 76-68-2298ghwrdpdqvuFvdxkp Ann Morris APRN-CNPFacility:[facility] [place]Start: 09-01-2024 End: 50-46-6901Jatzhe OnlyDennis G Furlong DO Work Phone: [facility] Internal [facility] MedicineStart: 08-31-2024 End: 83-38-1190Bnercz outpatient visit 15 minutesDennis G Furlong DO Work Phone: [facility] Internal [facility] - [facility] CenterComment on above:Class 1 obesity due to excess calories with serious comorbidity and body mass index (BMI) of 33.0 to 33.9 in adult (Primary Dx) Start: 08-16-2024 End: 23-97-0859NdmyqlSwgtip G Furlong DO Work Phone: [facility] - Family MedicineStart: 06-18-2024 End: 03-52-9440sfsvlzwnbyDtwsld W Secor MDFacility:[facility] Start: 06-18-2024 End: 03-38-8045qictfzhxpkUurnuf W Secor MDFacility:[facility] [place] Start: 05-12-2024 End: 69-18-2609LydqtcQufya Uvaldo MANDYProMedica Physicians Internal Medicine - Family MedicineStart: 04-07-2024 End: 10-12-6778Jprajy Dixie Garcia DO Work Phone: [facility] - Family MedicineStart: 03-25-2024 End: 27-48-4447Hinbue Dixie Garcia DO Work Phone: [facility] - Family MedicineStart: 03-24-2024 End: 00-12-2280Dbwdfq Dixie Garcia DO Work Phone: [facility] - Family MedicineStart: 03-23-2024 End: 81-41-3739Elpbeqqsu encounterVanessa Garcia [facility]OS[facility]ITALProMedica [facility] Medicine - Family MedicineStart: 03-19-2024 End: 05-60-3155Zzlyje outpatient visit 25 Bruno Garcia DO Work Phone: [facility] - Family MedicineComment on above:Nausea and vomiting, unspecified vomiting type (Primary Dx); Hypokalemia; Other fatigue; Class 1 obesity due to excess calories with serious comorbidity and body mass index (BMI) of 33.0 to 33.9 in adultStart: 03-15-2024 End: 92-45-9502Pqgoeuxfg department patient visitRESTON HOSPITAL CENTERStart: 02-24-2024 End: 85-55-7356Vjyjkp Dixie Garcia DO Work Phone: [facility] - Family MedicineStart: 02-10-2024 End: 75-81-2879Qaflyc Dixie Montgomeryng DO Work Phone: [facility] - Family MedicineStart: 01-30-2024 End: 12-68-9570lvsfeqhgeeGnusmt W Secor MDFacility:[facility] [place] Start: 01-14-2024 End: 80-27-3139Imkrwk OnlyDennis G Furlong DO Work Phone: [facility] Internal Medicine - Family MedicineComment on above:Class 2 severe obesity due to excess calories with serious comorbidity and body mass index (BMI) of39.0 to 39.9 in adult ([facility]) (Primary Dx)Start: 12-16-2023 End: 38-41-2109Wltwap OnlyDennis G Furlong DO Work Phone: [facility] Internal [facility] - [facility] MedicineStart: 11-12-2023 End: 25-29-1905Fhcnvl OnlyDennis G Furlong DO Work Phone: [facility] Internal Medicine - Family MedicineComment on above:Class 2 severe obesity due to excess calories with serious comorbidity and body mass index (BMI) of39.0 to 39.9 in adult ([facility]) (Primary Dx)Start: 11-07-2023 End: 10-70-5793HqpnbmVajvo Uvaldo CMAProM[facility] Hospital [facility] Internal Medicine - Family MedicineComment on above:Morbid obesity ([facility]) (Primary Dx)Start: 10-30-2023 End: 59-67-3539Futvwq OnlyDennis G Furlong DO Work Phone: [facility] Internal Medicine - Family MedicineComment on above:Primary osteoarthritis of knee, unspecified laterality (Primary Dx)Start: 10-15-2023 End: 13-63-5799Fizhmc outpatient new 45 minutesDennis G Furlong DO Work Phone: [facility] Internal Medicine - Family MedicineComment on above:Anxiety (Primary Dx); Depression, unspecified depression type; MARYLU (obstructive sleep apnea); Gastroesophageal reflux disease, unspecified whether esophagitis present; Class 2 severe obesity due to excess calories with serious comorbidity and body mass index (BMI) of39.0 to 39.9 in adult (CMS-HCC); Screen for colon cancer; Encounter for screening mammogram for malignant neoplasm of breast; Ex-cigarette smokerStart: 08-21-2023 End: 24-32-3116ajiwtfvjeqSGTKL [facility] HospitalStart: 08-21-2023 Encounter for general adult medical examination without abnormal findingsROBIN [facility] HospitalStart: 77-56-3273rkbxbariikOUBGWKirkbride Center Procedures DateProcedureProcedure DetailPerforming ClinicianStart: 44-42-6463Hp abdomen & pelvis w/contrast materialJigar Reynolds MD Work Phone: Start: 29-86-8826Glagpvkd blood count with white cell differential, automatedJigar Reynolds MD Work Phone: Start: 40-54-2597Rhrnkadikxslb metabolic panelJigar Reynolds MD Work Phone: Start: 09-77-6676Whvgf drug screeningChad Violeta CHAUNCEY-TOUR MANAGER Work Phone: Start: 54-46-1820Vkxlw depression screening assessment Jimmie Furlong DO Work Phone: Start: 59-49-2785Acgeb depression screening assessment Jimmie Furlong DO Work Phone: Start: 67-63-6608Dkhgm depression screening assessment Jimmie Furlong DO Work Phone: Start: 50-02-7858Rhrmk depression screening assessment Jimmie Furlong DO Work Phone: Start: 89-59-0848Wxxlg depression screening assessment Jimmie Furlong DO Work Phone: Start: 72-66-0078Pdkay depression screening assessment Jimmie Furlong DO Work Phone: Plan of Treatment DateCare ActivityDetailAuthorStart: 55-13-6622XUxE,Tdap and Td Vaccines (3 - Td or Tdap)DTaP,Tdap and Td Vaccines (3 - Td or Tdap)[facility] SystemStart: 24-55-9561Uixywgl vaccinationTETANUSAviCentra [facility] Hospital SystemStart: 08-36-5524Gfkus panelLipidsBON [facility]OS[facility]ITALStart: 12-54-6757Cuqjb BMI Follow Up Plan Adult BMI Follow Up PlanCone Health Wesley Long Hospitaltart: 42-70-2104Htfbt BMI ScreeningAdult BMI ScreeningGalion Community Hospital SystemStart: 21-54-7879Sqszidevps ScreeningDepression ScreeningGalion Community Hospital SystemStart: 07-90-8687Rehmbva ScreeningTobacco ScreeningGalion Community Hospital SystemStart: 32-79-8952Pujdh BMI ScreeningAdult BMI ScreeningGalion Community Hospital SystemStart: 48-41-0057Oyojoydafq ScreeningDepression ScreeningGalion Community Hospital SystemStart: 83-14-1158Wccrqnw ScreeningTobacco ScreeningGalion Community Hospital SystemStart: 81-39-4563Ccnen BMI ScreeningAdult BMI ScreeningGalion Community Hospital SystemStart: 15-48-6878Nmdyglwicz ScreeningDepression ScreeningGalion Community Hospital SystemStart: 95-03-0365Htcybtu ScreeningTobacco ScreeningGalion Community Hospital SystemStart: 90-50-7015Dedww BMI ScreeningAdult BMI ScreeningGalion Community Hospital SystemStart: 36-79-8256Cxaxgbfkid ScreeningDepression ScreeningCone Health Wesley Long Hospitaltart: 14-87-6260Dtvlqzc ScreeningTobacco ScreeningCone Health Wesley Long Hospitaltart: 08-19-2025 End: 52-12-0543Ejbrbjz encounter kppgmatgn45/19/2026 2:00 PM EST Office Visit [facility] Orth[facility] [address] [place] [address] Cayden Mcdaniel APRN-EDI [address] [place] [address] [facility] OrthopedicsStart: 20-11-6837Kimmcdkaezukvu of varicella zoster vaccineZoster (Shingles) Vaccine (2 of 2)[facility] SystemStart: 15-55-6560Pwhufe vaccine hzv live for subcutaneous useZOSTER (SHINGLES) VACCINE (2 of 2)[facility] 04-27-2025 End: 78-32-5144Qcoasnh encounter elaknnxwt74/28/2025 9:20 AM EDT Office Visit [facility] Orth[facility] [address] [place] [address] Елена Martínez [address] [place] [address] [facility] OrthopedicsStart: 04-05-2025 End: 89-44-0178Efkqmdo encounter iodsiqouk57/06/2025 8:30 AM EDT Office Visit [facility] [address] [place] [address] Jimmie Garcia DO [address], [place] [address] [facility] - [facility] MedicineStart: 48-26-7078Saynbzexz vaccinationInfluenza VaccineGalion Community Hospital SystemComment on above:Postponed from 03/01/2025 (Vaccine Not Available)Start: 03-22-2025 End: 42-17-8357Dysswxqex to same day surgery ayfcoo8303/22/2025 12:55 PM EDT - 03/22/2025 2:10 PM EDT Surgery [facility] Periop [address] [place] [address] Joaquín Baez MD [address] [place] [address] ARTHROPLASTY KNEE TOTALCare One At Raritan Bay Medical Center PeriopComment on above:ARTHROPLASTY KNEE TOTALStart: 03-22-2025 End: 70-31-6199Cvhnrz kne condyle&platu medial&lat compartmentsARTHROPLASTY KNEE TOTAL Osteoarthritis of left knee, unspecified osteoarthritis type 03/22/2025 12:55 PM EDTAVI ONT ORStart: 03-22-2025 End: 16-14-6491Xmdm-asst surgical navigation image-lessASSISTANCE SURGICAL NAVIGATION MUSCULOSKELETAL IMAGELESS ADD-ON PX Osteoarthritis of left knee, unsp ecified osteoarthritis type 03/22/2025 12:55 PM EDTAVI ONT ORStart: 03-22-2025 Subsequent hospital visit by /22/2025 12:55 PM EDT Hospital Encounter [facility] Per[facility] [address] [place] [id number] Joaquín Baez MD [address] [place] [address] Osteoarthritis of left knee, unspecified osteoarthritis type [facility] PeriopComment on above:Osteoarthritis of left knee, unspecified osteoarthritis typeStart: 21-70-4760Jllta BMI ScreeningAdult BMI Screening [facility] SystemStart: 08-51-0528Hmgiehoeex ScreeningDepression Screening [facility] Hospitaltart: 58-21-4442Cccdpvq ScreeningTobacco Screening [facility] Hospitaltart: 03-15-2025 End: 72-86-1950Cxmtqpj encounter znagpftak04/15/2025 4:00 PM EDT Office Visit [facility] - Family Medicine [address] [place] [address] Jimmie Garcia, DO [address] [facility], [place] [address] [facility] Centeredic Physicians Internal Medicine - Family MedicineStart: 03-15-2025 End: 42-69-3413JKL Breast - bilateral screeningMammography screening bilateral with CAD Imaging Routine Encounter for screening mammogram for malignant neoplasm of breast Expected: 03/15/2025, Expires: 03/15/2026[facility] Work Phone: Comment on above:Expected: 03/15/2025, Expires: 03/15/2026Start: 94-45-1667NRQDU-19 VACCINE ( season)COVID-19 VACCINE ( season)[facility] SystemStart: 17-35-3178Mgsunmvqk vaccination [facility] Hospitaltart: 02-25-2025 End: 61-28-7284Puengauzg to zevsktuhxszxj39/28/2025 9:00 AM EDT Pre-Operative Nurse Assessment [facility] Pre Admission [address] [place] [address] Frbha [place] Pre AdmissionStart: 58-84-9252xrmiftmsts AmbulatoryFacility:[facility] [place]Start: 12-03-2024 End: 50-31-1008Jnwbssl encounter obssbmevf61/05/2025 4:15 PM EDT Office Visit [facility] Medicine - Family Medicine [address] [place] [address] Jimmie Garcia, DO [address], [place] [address] [facility] MedicineStart: 56-13-9797Qnslm BMI ScreeningAdult BMI ScreeningProGlenbeigh Hospital SystemStart: 97-09-9150Egnywkrltq ScreeningDepression ScreeningGalion Community Hospital SystemStart: 61-05-7665Dfwuyqt ScreeningTobacco ScreeningProGlenbeigh Hospital SystemStart: 08-31-2024 End: 29-53-4009Rlgkxry encounter szuhflhjx57/03/2025 4:30 PM EST Office Visit [facility] - Family Medicine [address] [place] [address] Jimmie Garcia, DO [address], [place] [address] [facility] MedicineStart: 76-46-3376Wmjvrdxors MonitoringDepression MonitoringRESTON HOSPITAL CENTERStart: 04-15-2024 End: 23-36-8989Dwtituo encounter hyxqmirjg64/16/2024 9:30 AM EDT Office Visit [facility] - Family Medicine [address] [place] [address] Jimmie Garcia, DO [address], [place] [address] [facility] Internal Medicine - Family MedicineStart: 03-36-8151WIJOV-19 Vaccine ( season)COVID-19 Vaccine ()[facility] CENTERStart: 38-55-9641EWNXH-19 Vaccine ()COVID-19 Vaccine ()[facility] SystemStart: 50-10-4189Lywuzamux vaccination Influenza VaccineGalion Community Hospital SystemStart: 82-65-0493Qzfswsqnk vaccination Flu vaccine (#1)[facility] CENTERStart: 12-25-2023 End: 88-17-0707Yftnoqe encounter procedureSycamore Medical Center - CT ImagingStart: 10-15-2023 End: 37-58-2735WC Chest for screening WO contrastCT low dose lung screening (Annual) Imaging Routine Ex-cigarette smoker Expected: 10/15/2023, Expires: 10/14/2024[facility] SystemComment on above:Expected: 10/15/2023, Expires: 10/14/2024Start: 10-15-2023 End: 52-91-0031QIR Breast - bilateral screeningMammography screening bilateral with CAD Imaging Routine Encounter for screening mammogram for malignant neoplasm of breast Expected: 10/15/2023, Expires: 10/14/2024[facility] CenterComment on above:Expected: 10/15/2023, Expires: 10/14/2024Start: 84-15-2248KJBAF-19 Vaccine ()COVID-19 Vaccine ()[facility] SystemStart: 36-78-5953Rlrdngtor for malignant neoplasm of breastBreast cancer screenBON OHIO STATE HARDING HOSPITALStart: 01-03-2016 Administration of varicella zoster vaccineZoster (Shingles) Vaccine (1 of 2) [facility] SystemStart: 31-45-6088Bwiiiuiaiihf vaccinationAdams County Hospital SystemStart: 23-58-0436Xkzlqohu vaccine (1 of 2)Shingles vaccine (1 of 2)[facility] Centerart: 01-98-3653Keckfx vaccine hzv live for subcutaneous useZOSTER (SHINGLES) VACCINE (1 of 2)[facility] Hospital[facility]art: 11-20-2015 DTaP,Tdap and Td Vaccines (2 - Td or Tdap)DTaP,Tdap and Td Vaccines (2 - Td or Tdap)[facility] Hospitaltart: 98-46-4910PRvY/Tdap/Td vaccine (2 - Td or Tdap)DTaP/Tdap/Td vaccine (2 - Td or Tdap)[facility] CENTERStart: 82-64-7662Kimuipy vaccinationTETANUSABucyrus Community Hospitaltart: 04-09-2015 Screening for malignant neoplasm of breastMAMMOGRAM SCREENING DISCUSSIONGreen Cross Hospitaltart: 89-19-9745Mhnbrlflz for malignant neoplasm of colonBON Holzer Hospitalart: 28-88-9002Mchzu panelLIPID SCREENINGGreen Cross Hospitaltart: 41-99-4830Cltwecwfuvug 0-64 years Vaccine (2 of 2 - PPSV23 or PCV20)Pneumococcal 0-64 years Vaccine (2 of 2 - PPSV23 or PCV20)[facility] CENTERStart: 90-22-4732Btsagutxk for malignant neoplasm of cervixBON Holzer Hospitalart: 42-41-8109Hoovqavuz for malignant neoplasm of cervix [facility] Centerart: 19-62-4716Bbtxokldt B vaccinationHEP B VACCINE (1 of 3 - 19+ 3-dose series)[facility] Hospital[facility]art: 13-64-7067Spyvvtojd B vaccine (1 of 3 - 19+ 3-dose series)Hepatitis B vaccine (1 of 3 - 19+ 3-dose series)[facility] Centerart: 17-21-3259Jqpkp BMI Follow Up PlanAdult BMI Follow Up PlanCone Health Wesley Long Hospitaltart: 64-59-9261Btayzixjx C screening Hepatitis C screenBON OHIO STATE HARDING HOSPITALStart: 31-85-5678HUI screeningRussell County Medical Centerart: 36-67-2617Knelcuxok C screeningHEPATITIS C VIRUS SCREENINGUniversity Hospitals Portage [facility] End: 94-91-6176Lwtri metabolic 2000 panel - Serum or PlasmaBasic Metabolic Panel Lab Routine Hypokalemia 1 Occurrences starting 03/19/2024 until 03/19/2025 [employer] Work Phone: Comment on above:1 Occurrences starting 03/19/2024 until 03/19/2025 End: 92-35-1951TFK panel - Blood by Automated countCBC without diff Lab Routine Tremor 1 Occurrences starting 12/03/2024 until 12/03/2025[facility] CenterDexrex Gear System Comment on above:1 Occurrences starting 12/03/2024 until 12/03/2025BC panel - Blood by Automated countCBC without diff Lab Routine Tremor 12/03/2024 5:19 PM GipisCologuard Non-ProMedicaCologuard Non-[facility] Lab Routine Screen for colon cancer Ordered: [employer] Work Phone: Comment on above:Ordered: 4Cologuard Non-ProMedicaCologuard Non-[facility] Lab Routine Screen for colon cancer Ordered: 03/15/2025[facility] Medical CenterAdaptive Advertising, Inc.Comment on above:Ordered: 03/15/2025 End: 47-62-0767Hmhncgrbcaihz metabolic 2000 panel - Serum or PlasmaComprehensive metabolic panel Lab Routine Tremor 1 Occurrences starting 12/03/2024 until 12/03/20253[employer] Work Phone: Comment on above:1 Occurrences starting 12/03/2024 until 12/03/2025omprehensive metabolic 2000 panel - Serum or Plasma Comprehensive metabolic panel Lab Routine Tremor 12/03/2024 5:19 PM G[employer] End: 34-07-1933Ykkgijann [Mass/volume] in Serum or PlasmaMagnesium Lab Routine Hypokalemia Other fatigue 1 Occurrences starting 03/19/2024 until 03/19/2025 [employer]Comment on above:1 Occurrences starting 03/19/2024 until 03/19/2025Radiography for bone length studiesXR BONE LENGTH STUDY Imaging Routine Left knee pain, unspecified chronicity 02/03/2025 1:53 PM [employer] Work Phone: Radiography for bone length studiesXR BONE LENGTH STUDY Imaging Routine History of total knee arthroplasty, left 04/27/2025 9:04 AM CelergoURGICAL PATHOLOGY REQUESTSURGICAL PATHOLOGY REQUEST Surg Path Routine Osteoarthritis of left knee, unspecified osteoarthritis type Release Upon Ordering for 1 Occurrences starting 04/07/2025[facility] [employer] [facility] Comment on above:Release Upon Ordering for 1 Occurrences starting 04/07/2025 End: 39-65-9533SNL with ReflexTSH with Reflex Lab Routine Tremor 1 Occurrences starting 12/03/2024 until 12/03/2025[facility] App[facility]Rx [facility] HospitalComment on above:1 Occurrences starting 12/03/2024 until 12/03/2025TS with ReflexTSH with Reflex Lab Routine Tremor 12/03/2024 5:19 PM [facility] End: 13-50-4299IC Knee - left 2 ViewsRoger [facility] Center AppwoRx [facility] HospitalComment on above:One Time for 1 Occurrences starting 04/07/2025 until 04/07/2025XR Knee - left 3 ViewsXR KNEE LEFT 3 VIEWS Imaging Routine History of total knee arthroplasty, left 04/27/2025 9:04 AM SnapTell [facility] HospitalXR Knee - left 4 ViewsXR KNEE LEFT 4+ VIEWS Imaging Routine Left knee pain, unspecified chronicity 02/03/2025 1:53 PM [facility] [employer] [facility] Immunizations Immunization DateImmunizationNotesCare IcbarbgdKfybllkp43-68-5517oekjpqn toxoid, reduced diphtheria toxoid, and acellular pertussis vaccine, adsorbedDennis Furlong DO Work Phone: [facility]09-15-2025zoster vaccine recombinantDennis Furlong DO Work Phone: [facility] CenterJkwtgo63-46-9275Cxlwyirtugtd, In Clinic,; Translations: [Drug or medicament (substance)]Jimmie Furlong DO Work Phone: [facility] Ybqowg15-68-5582tkuvcu vaccine, unspecified formulationDennis Furlong DO Work Phone: [facility] HospitalTap[facility] Systems [facility]-SaginawPttmfi38-53-0212AZBAS-05, MODERNA BLUE border, Primary or Immunocompromised, (age 12y+), IM, 100 mcg/0.5mLBON OHIO STATE HARDING HOSPITALUHMJYM61-76-3774ZMXFL-43, MODERNA BLUE border, Primary or Immunocompromised, (age 12y+), IM, 100 mcg/0.5mLRESTON HOSPITAL [facility]ENTER 19-18-9011xincebf toxoid, reduced diphtheria toxoid, and acellular pertussis vaccine, adsorbedDennis Furlong DO Work Phone: [facility] CenterMmeels90-48-7314sdqtzbnjhlxb conjugate vaccine, 13 valentDennis Furlong DO Work Phone: [facility] Payers DatePayer CategoryPayerPolicy [id number] Care (unspecified)MMO NETWORK ACCESS Member Subscriber Plan / Payer (Effective 2024-Present) Name: SAKSHI HIGHTOWER Relation to Subscriber: Self Name: Sakshi Hightower Payer ID: Not on file Type: Not on file Address: [address] [id number]. [id number] Managed Care - PPO [id number] [id number]9-7492Svtwcjm8574294346-39-1424 [id number] 2.840.1.878286.3.57[id number] 2.840.1.990690.3.57[id number] 2.840.1.337455.3.57[id number] 2.16.840.1.268694.3.57[id number] 2.16.840.1.242507.3.57[id number] 2.16.840.1.873879.3.57[id number] 2.16.840.1.340561.3.57[id number] 2.16.840.1.738415.3.57[id number] 2.16.840.1.010632.3.57[id number] 2..840.1.621290.3.57[id number] 2.16.840.1.615001.3.57[id number] 2..840.1.965382.3.57[id number] 2..840.1.924935.3.57[id number] 2.840.1.004275.3.57[id number] 2.840.1.312148.3.57[id number] 2.840.1.066520.3.579.2.983 Social History DateTypeDetailFacilityStart: 08-01-2023 End: 86-14-6524Vqjfrsw smoking status NHISEx-smokerRESTON HOSPITAL CENTER Start: 07-01-2014 End: 15-83-9141Ykqeeol of tobacco useCurrent smokerCone Health Wesley Long Hospitaltart: 07-01-2014 End: 77-24-6255Tktyeey of tobacco useCigarette SmokerTrumbull Regional Medical Center Start: 08-01-2023 End: 17-51-5160Lthkavd use and exposureSmokeless tobacco non-userCone Health Wesley Long Hospitaltart: 03-15-2024 End: 68-90-9746Vbmpjjdkt beverage intakeCurrent drinker of alcohol (finding) [facility] Hospitaltart: 08-01-2023 End: 54-84-7107Owavfel of Social functionCone Health Wesley Long Hospitaltart: 08-01-2023 End: 35-00-1295Zavqfrc use panelTrumbull Regional Medical CenterPatient Health Questionnaire 9 item (PHQ-9) total score [Reported][address] [place] [address] Start: 67-14-1497Fzv assigned at birthNot on fileCone Health Wesley Long Hospitaltart: 61-79-9554Myffhtu CommentsocialCone Health Wesley Long Hospitaltart: 08-03-2012 End: 82-34-1113JotWodbcd (finding)[facility] Hospitaltart: 02-03-2025 Tobacco smoking status NHISNever smoked tobaccoGreen Cross Hospitaltart: 63-17-9480Jkglwui CommentQuit 10 years agoGreen Cross Hospitaltart: 02-11-2025 Alcohol CommentoccassionalGreen Cross Hospitaltart: 54-77-8923Vdqfig identity Identifies as female gender (finding)[facility] Hospitaltart: 12-39-6056Rppnvj orientationHeterosexual (finding)[facility] Medical CenterHow often to you have a drink containing alcohol?[facility] Medical Equipment Procedure CodeEquipment CodeEquipment Original TextEquipment IdentifierDates Attune Patella Medialized Dome 32mm Cemented [id number]: 04-07-2025 Attune Femoral Cruciate Retaining Size 6 Left [id number]: 16-79-0371Cuqcne Knee System Tibial Base Fixed Bearing Size 5 Cemented [id number]: 91-94-2086Dopbgr Knee System Tibial Insert Fixed Bearing Cruciate Retaining Size 6 7mm [id number]: 39-79-0760Rnoejow R 1x40 [id number]: 75-26-6254Mitypxj R [id number]: 04-07-2025 Functional Status ZhjcWvelcauhsbHqubgzKaujnwtt43-81-3188Ifpkgdslpbi anxiety disorder 7 item (DARIA-7)[facility] Clinical Notes 10-15-2023 to 04-27-2025 Note Date & WqdsJwyqNrvptusz77-76-3718 History of Present illness Narrative* Miriam Alton - 04/27/2025 9:20 AM EDT Ortho Nurse - Established Patient Intake Room#: 4 Date: 04/27/2025 9:09 AM Patient: Sakshi Hightower MR#: [id number] : 1965 Age: 60 y.o. 3wk L TKA Pt stated she is doing good,but just painful that is a 01/07. Pt stated she needs a refillon her pain meds took the last one last night. Pt was wearing her jamie hose and using a walker at the time. Referring Physician: Sameer Wilburn PA-C Insurance: Payor: [employer] [place] / Plan: [facility] Access / Product Type: *No Product [...] tablet 0 Cholecalciferol (Vitamin D3) 1.25 MG (88801 UT) capsule Take 1 capsule by mouth [...] by Nasal route once for 1 dose. [place] into the nose as directed. Call 911. [...] for moderate to severe pain Ween as pcaqssurh36 tablet 0 Pantoprazole [address] [...] Rfl: 0 Cholecalciferol (Vitamin D3) 1.25 MG (87613 UT) capsule, Take 1 capsule by mouth [...] by Nasal route once for 1 dose. [place] into the nose as directed. Call 911. [...] compression stockings. She is using Tylenol and [place] as needed for pain control. Reports is [...] -Erx to pharmacy for refill of the [place] at this time, she knows to be [...] arise. All pertinent portions of the clinical technical support representative documentation was reviewed and agree. Елена Martínez Ortho Nurse - Established Patient Intake Room#: 4 Date: 04/27/2025 9:09 AM Patient: Sakshi Hightower MR#: [id number] : 1965 Age: 60 y.o. 3wk L TKA Pt stated she is doing good,but just painful that is a 01/07. Pt stated she needs a refillon her pain meds took the last one last night. Pt was wearing her jamie hose and using a walker at the time. Referring Physician: Sameer Wilburn PA-C Insurance: Payor: [employer] [place] / Plan: [employer] Access / Product Type: *No Product [...] tablet 0 Cholecalciferol (Vitamin D3) 1.25 MG (41888 UT) capsule Take 1 capsule by mouth [...] by Nasal route once for 1 dose. [place] into the nose as directed. Call 911. [...] for moderate to severe pain Ween as gqxyqglnz91 tablet 0 Pantoprazole [address] [...] Rfl: 0 Cholecalciferol (Vitamin D3) 1.25 MG (16760 UT) capsule, Take 1 capsule by mouth [...] by Nasal route once for 1 dose. [place] into the nose as directed. Call 911. [...] spasms., Disp: , Rfl: documented in this [facility]10-18-2025 Emergency department Note* Zofia Davison RN - 04/17/2025 1:26 AM EDT K gtt not available in ED pyxis, PCC notified about med need. [facility]10-18-2025 Emergency department Note* Zofia Davison RN - 04/17/2025 1:26 AM EDT K gtt not available in ED pyxis, PCC notified about med need. * Jigar Reynolds MD - 04/17/2025 12:39 AM EDT Emergency Department Report [facility] EMERGENCY DEPARTMENT Service Date:.04/17/25 PCP: Jimmie Garcia [...] tablet, R-0 Cholecalciferol (Vitamin D3) 1.25 MG (49978 UT) capsule Take 1 capsule by mouth [...] by Nasal route once for 1 dose. [place] into the nose as directed. Call 911. [...] Insecurity: No Food Insecurity (04/05/2025) Received from [employer] Hunger Screening Within the past 12 months we worried whether our food would run out before we got money to buy more.: Never True Within the past 12 months the food we bought just didn't last and we didn't have money to get more.: Never True Transportation Needs: No Transportation Needs (03/15/2025) Received from [employer] PRAPARE - Transportation Lack of Transportation (Medical): No Lack of Transportation (Non-Medical): No Physical Activity: Insufficiently Active (08/31/2024) Received from [employer] Exercise Vital Sign On average, how many days per week do you engage in moderate to strenuous exercise (like a brisk walk)?: 3 days On average, how many minutes do you engage in exercise at this level?: 20 min Stress: Not on file Social Connections: Not on file Personal Safety: Not on file Housing Stability: Low Risk (10/15/2023) Received from [employer] Housing Instability Are you worried or concerned [...] Laterality: Left; Surgeon: Joaquín Baez MD; Location: [facility] ONT OR ASSISTANCE SURGICAL NAVIGATION MUSCULOSKELETAL IMAGELESX Left 04/07/2025 Laterality: Left; Surgeon: Joaquín Baez MD; Location: [facility] ONT OR GASTRIC BYPASS 2014 BACK SURGERY 2000 laminectomy L4-5 TONSILLECTOMY [3] Allergies Allergen Reactions Eleele Meal Anaphylaxis States she has EPI pen Peanut-Containing Drug Products Anaphylaxis Tree nuts Tramadol Anaphylaxis, Hives, Itching and Rash Other Reaction(s): Intolerance Heart racing Gramineae Pollens Itching ragweed Jigar Reynolds MD 04/17/25 0630 documented in this [facility]10-18-2025 Physician Emergency department Note* Jigar Reynolds MD - 04/17/2025 12:39 AM EDT Emergency Department Report [facility] EMERGENCY DEPARTMENT Service Date:.04/17/25 PCP: Jimmie Garcia [...] tablet, R-0 Cholecalciferol (Vitamin D3) 1.25 MG (12969 UT) capsule Take 1 capsule by mouth [...] by Nasal route once for 1 dose. [place] into the nose as directed. Call 911. [...] Insecurity: No Food Insecurity (04/05/2025) Received from [facility] Hunger Screening Within the past 12 months we worried whether our food would run out before we got money to buy more.: Never True Within the past 12 months the food we bought just didn't last and we didn't have money to get more.: Never True Transportation Needs: No Transportation Needs (03/15/2025) Received from [employer] PRAPARE - Transportation Lack of Transportation (Medical): No Lack of Transportation (Non-Medical): No Physical Activity: Insufficiently Active (08/31/2024) [facility] from [facility] Exercise Vital Sign On average, how many days per week do you engage in moderate to strenuous exercise (like a brisk walk)?: 3 days On average, how many minutes do you engage in exercise at this level?: 20 min Stress: Not on file Social Connections: Not on file Personal Safety: Not on file Housing Stability: Low Risk (10/15/2023) Received from [employer] [facility] [employer]us Housing Instability Are you worried or concerned [...] Laterality: Left; Surgeon: Joaquín Baez MD; Location: [facility] OR ASSISTANCE SURGICAL NAVIGATION MUSCULOSKELETAL IMAGELESX Left 04/07/2025 Laterality: Left; Surgeon: Joaquín Baez MD; Location: [facility] ONT OR GASTRIC BYPASS 2014 BACK SURGERY 1999 laminectomy L4-5 TONSILLECTOMY [3] Allergies Allergen Reactions Eleele Meal Anaphylaxis States she has EPI pen Peanut-Containing Drug Products Anaphylaxis Tree nuts Tramadol Anaphylaxis, Hives, Itching and Rash Other Reaction(s): Intolerance Heart racing Gramineae Pollens Itching ragweed Jigar Reynolds MD 04/17/2530 [facility]10-08-2025 Miscellaneous Notes* Nursing Notes - Gayle Osorio RN - 04/07/2025 6:46 PM EDT Message sent to Dr. Valentin PHOTOENGRAVING ETCHER's regarding hemovac leaking air, yet still pulling some drainage through tubing and into canister. Connections checked. New canister applied. No success. Hemovac discontinued per SB PHOTOENGRAVING ETCHER verbal Order. 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 Independent Concerns With Patient Being Able To Care For Themselves At Discharge? Has Assistance (Friend, Family, Skilled Provider) Employment/Financial Employed? Yes Financial Concerns none Initial Discharge Planning DME ([employer]) Walker (has FWW) Patient Goal for Discharge Return home with assistance from family and friends (working, family time, travel and less pain) [facility] [place] [facility]) Anticipated Services at Discharge Physical Therapy;Detention;Outpatient follow up;Outpatient rehab services Transportation Available car;family or friend will provide Assessment/Concerns to be Addressed Concerns To Be Addressed no discharge needs identified;denies needs/concerns at this time CM spoke with patient this date to discuss post-surgical discharge plans. Patient states the plan is to discharge to her daughter's home with family/friends assistance, [facility] requested and then OP therapy with [facility] in [place]. Patient has a wheeled walker. Patient denies any other questions or needs at this time. CM to continue to follow and assist with discharge plans. documented in this encounterUniversity Hospitals Portage [facility] Center10-08-2025 Nurse Note* Nursing Notes - Gayle Osorio RN - 04/07/2025 6:46 PM EDT Message sent to Dr. Valentin PHOTOENGRAVING ETCHER's regarding hemovac leaking air, yet still pulling some drainage through tubing and into canister. Connections checked. New canister applied. No success. Hemovac discontinued per SB PHOTOENGRAVING ETCHER verbal Order. [facility]10-08-2025 Nurse Note* Nursing Notes - Gayle Osorio RN - 04/07/2025 6:21 PM EDT Written and verbal discharge instructions reviewed by SB RN. Daughter at bedside. Understanding voiced. Questions encouraged and answered. [facility]10-08-2025 Hospital Discharge instructions* Discharge Instructions* Aliya Leong [...] Drain removal: Please call Dr Baez's nurse ([phone]) the morning after discharge with the recorded [...] do apply apressure dressing, please call the office/construction director provider so that they can direct [...] at home. Dr. Baez's office number is [phone], option #2 for the nurse. We want to hear from you if you are having any concerns related to the surgery. If after hours, please be assured that we are still available to you! Simply contact the [facility] hospital number, and ask for Dr. [...] to your closest ER. documented in this encounterUniversity Hospitals Portage Medical Center10-08-2025 Nurse Note* Nursing Notes - Gayle Osorio RN - 04/07/2025 3:18 PM EDT Assisted out of recliner chair with 2 assist. Gait belt on standby assist to restroom with walker. Tolerated well. [facility] [employer] [id number] History of Present illness Narrative* Ana Gautam [...] initial instruction. Pt will be discharging to [facility] home for 2-3 weeks and family can [...] SURGERY 1999 laminectomy L4-5 TONSILLECTOMY * Steff lAmonte, PT - 04/07/2025 12:56 PM EDT Physical [...] Dr. Baez's prescribing practice. documented in this encounterChildren'S Hospital ColoradoInnoveer Solutions (now [employer]) [facility][id number] Nurse Note* Nursing Notes - Gayle Osorio RN - 04/07/2025 1:00 PM EDT Lunch tray ordered. [facility] ColoradoTrendy Mondays [id number] Nurse Note* Madai Arroyo RN - 04/07/2025 [...] to PACU with Fiona VALLES and RN cellular equipment installer. Reports given to Vanessa DE at 1140H. * Violeta Mart RN - 04/07/2025 10:24 AM EDT OR 4 Temperature 66.1F Humidity 42.5% documented in this encounterChildren'S Hospital ColoradoInnoveer Solutions (now [employer]) [facility][id number] Nurse Surgical operation note* Madai Arroyo RN - 04/07/2025 12:05 PM EDT Left adductor canal nerve block complete at this time. Pt is in stable condition and denies any numbness around lips, ringing in ears, or metallic taste in mouth. Pt now lying on back and awake. Pt able to answer questions appropriately. Fiona VALLES finishing with dressing. No complaints at this time. [facility] [employer] [id number] Nurse Surgical operation note* Madai Arroyo RN - 04/07/2025 11:58 AM EDT Left adductor canal nerve block started at this time by Fiona VALLES. Pt is in stable condition at this time. Fiona VALLES is cleaning block site. Pt is lying on back with left thigh exposed. Pt still able to answer questions. No other complaints at this time. [facility]10-08-2025 Nurse Surgical operation note* Violeta Mart RN - 04/07/2025 11:40 AM EDT Patient transported to PACU with Fiona VALLES and RN cellular equipment installer. Reports given to Vanessa DE at 1140H. [facility]10-08-2025 Nurse Surgical operation note* Violeta Mart RN - 04/07/2025 10:24 AM EDT OR 4 Temperature 66.1F Humidity 42.5% [facility]10-08-2025 Nurse Note* Nursing Notes - Shari Hogan RN - 04/07/2025 7:15 AM EDT Patient ambulated to the bathroom with nursing staff [facility]10-08-2025 Nurse Note* Nursing Notes - Shari [...] discharged with 2 pairs of JAMIE hose. [facility]10-06-2025 History of Present illness Narrative* Jimmie Garcia, [...] Head: Normocephalic. Nose: Nose normal. Mouth/Throat: Lips: Duvall. Mouth: Mucous membranes are moist. Dentition: Abnormal [...] were applied: encouragement toexercise. documented in this encounterCentral Vermont Medical CenterAdaptive Advertising, Inc.09-19-2025 Miscellaneous Notes* Telephone Encounter - Coral White [...] - 03/19/2025 8:42 AM EDT Emailed to [email or web address] * Telephone Encounter - Vanessa Garcia CMA - 03/19/2025 8:42 AM EDT Patient emailed me back and stated that she needs RTW to state 03/22/25 [facility] Telephone encounter Note* Telephone Encounter - Coral White CMA - 03/19/2025 8:42 AM EDT Patient is really sick still and wanted to know if she could have a note for last night and tonightto be off [facility]09-19-2025 Telephone encounter Note* Telephone Encounter - Jimmie Garcia DO - 03/19/2025 8:42 AM EDT Sure. Note is printed [facility]09-19-2025 Telephone encounter Note* Telephone Encounter - Vanessa Garcia CMA - 03/19/2025 8:42 AM EDT Emailed to [email or web address] [facility]09-19-2025 Telephone encounter Note* Telephone Encounter - Vanessa Garcia CMA - 03/19/2025 8:42 AM EDT Patient emailed me back and stated that she needs RTW to state 03/22/25 [facility] [id number] History of Present illness Narrative* Jimmie Joyamookie, - 03/15/2025 4:00 PM EDT Subjective Patient ID: Sakshi Hightower is a 60 y.o. female. Lina presents today for her annual wellness. She had labs done last week at [facility] for her wellness that was ordered [...] Enlarged and swollen. Not pale. Mouth/Throat: Lips: Duvall. Mouth: Mucous membranes are moist. Pharynx: Postnasal [...] and will cover with an antibiotic. Continue oaaj-hka-mquxtmx medications Chronic bilateral low back pain without [...] a dayfor 7 days. 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 Independent Concerns With Patient Being Able To Care For Themselves At Discharge? Has Assistance (Friend, Family, Skilled Provider) Employment/Financial Employed? Yes Financial Concerns none Initial Discharge Planning DME ([employer]) Walker (has FWW) Patient Goal for Discharge Return home with assistance from family and friends (working, family time, travel and less pain) Expected Discharge Disposition HH ([facility] then [facility] in [place] OP) Anticipated Services at Discharge Physical Therapy;Detention;Outpatient follow up;Outpatient rehab services Transportation Available car;family or friend will provide Assessment/Concerns to be Addressed Concerns To Be Addressed no discharge needs identified;denies needs/concerns at this time CM spoke with patient this date to discuss post-surgical discharge plans. Patient states the plan is to discharge to her daughter's home with family/friends assistance, [facility] requested and then OP therapy with [facility] in [place]. Patient has a wheeled walker. Patient denies any other questions or needs at this time. CM to continue to follow and assist with discharge plans. [facility]08-06-2025 History of Present illness Narrative* Evelin Hernandez - 02/03/2025 1:50 PM EDT Ortho Nurse - Established Patient Intake Room#: room 2--- PHOTOENGRAVING ETCHER - referral from Dr. Garcia - Left knee pain for years; stairs are difficult; knee gives out. She has tried injections and therapy with last injections being 3 months ago. She rates her pain on a scale of 8/10. denies nicotine; surgery discussion Date: 02/03/2025 2:07 PM Patient: Sakshi Hightower MR#: [id number] : 1965 Age: 60 y.o. Referring Physician: [...] 2 puffs. Cholecalciferol (Vitamin D3) 1.25 MG (92307 UT) capsule Take 1 capsule by mouth [...] the more it hurts. Patient has tried [place],injections and weight modification in the past, which do not provide relief from current symptoms. Adarsh gandhi is here today for evaluation and to determine treatment options. Pain is 8-9/10 on a daily basis. History of gastric bypass surgery. Patient is seeing pain management in [place] where she is prescribed [place]. PHYSICAL EXAM: This is an alert, oriented, [...] joint space, subchondral sclerosis, osteophyte formation, and rzug-gw-uemo contact. IMPRESSION: 1.) Severe symptomatic end-stage arthritis, [...] of limb, and ultimately loss of life. snf expectations, risks and general implant survivorship were also discussed. Despite these risks, the patient would like to proceed with surgical planning. Today, we will initiate the pre-surgical process including nasal MRSA screening, scheduling an appointment for [facility] [place] and the potential surgical date, and reviewing [...] Insecurity: No Food Insecurity (08/31/2024) Received from [facility] Hunger Screening Within the past 12 months we worried whether our food would run out before we got money to buy more.: Never True Within the past 12 months the food we bought just didn't last and we didn't have money to get more.: Never True Physical Activity: Insufficiently Active (08/31/2024) Received from [facility] Exercise Vital Sign Days of Exercise per Week: 3 days Minutes of Exercise per Session: 20 min Housing Stability: Low Risk (10/15/2023) [facility] Housing Instability Are you worried or concerned that in the next two months you may not have stable housing that you own, rent or stay in as a part of a household?: No Current Outpatient Medications: Albuterol 108 (90 Base) MCG/ACT Aero Soln inhaler, Inhale 2 puffs., Disp: , Rfl: Cholecalciferol (Vitamin D3) 1.25 MG (42909 UT) capsule, Take 1 capsule by mouth [...] spasms., Disp: , Rfl: Allergies Allergen Reactions Eleele Meal Anaphylaxis States she has EPI pen Peanut-Containing Drug Products Anaphylaxis Tree nuts Tramadol Anaphylaxis, Hives, Itching and Rash Other Reaction(s): Intolerance Heart racing Gramineae Pollens Itching ragweed documented in this encounterUniversity [facility]als [facility]06-05-2025 History of Present illness Narrative* Jimmie Garcia, - 12/03/2024 4:15 PM EDT Subjective Patient ID: Sakshi Hightower is a 59 y.o. female. Lina presents today for recheck of multiple problems. She has been seeing pain management for her left knee pain. She has arthritis and was told she needed a knee replacement. She has been seeing painmanagement and was taking [place]io but that did not help. She also [...] Exam Vitals reviewed. Exam conducted with a rehab trainer present (Mario Ibanez MS 3). Constitutional: Appearance: [...] is intact. Romberg sign negative. Coordination normal. Aizjli-Gxph-Qjystk Test and Heel to Pinon Test normal. [...] lorazepam for p.r.n. use. documented in this encounterTrumbull [facility] Center05-22-2025 NoteProcedure: Bilateral Genicular Nerve Block of the [...] on his/her behalf by a trained medical laboratory technician. The creation of this document is based on the provider?s statements to the medical laboratory technician. Electronically signed by Manpreet Hampton MD 11/19/24 16:24 EDT Electronically signed by Mireya Rm 11/19/2024 16:08 [facility]05-22-2025 NoteHistory of Present Illness CHIEF COMPLAINT: [_] [...] on his/her behalf by a trained medical laboratory technician. The creation of this document is based on the provider?s statements to the medical laboratory technician. 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 Cigarettes Family History Hypertension: Father. Health Status Family Member(s) Lab Results Microbiology - Current Encounter No qualifying data available. Electronically signed by Manpreet Hampton MD 11/19/24 16:24 EDT Electronically signed by JagMireya araujo 11/19/2024 15:39 [facility] History of Present illness Narrative* Jimmie [...] Exam Vitals reviewed. Exam conducted with a rehab trainer present (Leo Davison MS3). Constitutional: General: She [...] diet and exercise program. documented in this encounterTrumbull [facility] Medical Center09-23-2024 Miscellaneous Notes* Telephone Encounter - Vanessa Garcia CMA - 03/23/2024 9:31 AM EDT Patient called and stated that she needs the next 2 days off. * Telephone Encounter - Yanet Carrera - 03/23/2024 9:31 AM EDT Patient called back and needs the time off extended going back to work 03/25 please fax to [phone] * Telephone Encounter - Jimmie Garcia DO - 03/23/2024 9:31 AM EDT Okay. Note is printed to be faxed * Telephone Encounter - Yanet Carrera - 03/23/2024 9:31 AM EDT faxed documented in this encounterTrumbull [facility] Center09-23-2024 Telephone encounter Note* Telephone Encounter - Vanessa Garcia CMA - 03/23/2024 9:31 AM EDT Patient called and stated that she needs the next 2 days off. [facility]09-23-2024 Telephone encounter Note* Telephone Encounter - Yanet Carrera - 03/23/2024 9:31 AM EDT Patient called back and needs the time off extended going back to work 03/25 please fax to [phone] [facility]09-23-2024 Telephone encounter Note* Telephone Encounter - Jimmie Garcia DO - 03/23/2024 9:31 AM EDT Okay. Note is printed to be faxed [facility]09-23-2024 Telephone encounter Note* Telephone Encounter - Yanet Carrera - 03/23/2024 9:31 AM EDT faxed [facility]09-19-2024 History of Present illness Narrative* Jimmie Garcia [...] tomorrow. 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 She does [...] mg total) before bedtime. documented in this encounterTrumbull Regional Medical Center06-17-2024 Miscellaneous Notes* Telephone Encounter - Simona Bailon [...] but she [place] it[place] you allow it * Telephone Encounter - Jimmie Garcia DO - 12/16/2023 4:53 PM EDT Okay. I printed out a form to faxed to [facility] * Telephone Encounter - Yanet Carrera - 12/16/2023 4:53 PM EDT done documented in this encounterTrumbull [facility] Medical Center06-17-2024 Telephone encounter Note* Telephone Encounter - Simona Bailon CMA - 12/16/2023 4:53 PM EDT Pt called wanted to know if you could send over something for nausea she can't get ahold of it , stated she did stop the wegovy this past week to see if it is from that [facility]06-17-2024 Telephone encounter Note* Telephone Encounter - Jimmie Garcia DO - 12/16/2023 4:53 PM EDT Okay I sent in Phenergan. It probably is the Wegovy [facility]06-17-2024 Telephone encounter Note* Telephone Encounter - Simona [...] there about talking to you about switching [facility]06-17-2024 Telephone encounter Note* Telephone Encounter - Simona Bailon CMA - 12/16/2023 4:53 PM EDT Pt called back said her pharmacy dont do compound but she is willing to drive [place] itif you allow it [facility]06-17-2024 Telephone encounter Note* Telephone Encounter - Jimmie Garcia DO - 12/16/2023 4:53 PM EDT Okay. I printed out a form to faxed to [facility]06-17-2024 Telephone encounter Note* Telephone Encounter - Yanet Carrera - 12/16/2023 4:53 PM EDT done [facility]04-16-2024 History of Present illness Narrative* Jimmie Garcia [...] doesn't have any symptoms. documented in this encounterGal[facility] SystemEvaluation [facility]* Diagnosis Primary osteoarthritis of knee, unspecified laterality- Primary [facility]* Diagnosis Morbid obesity ([facility])- Primary Morbid obesity documented [facility]* Diagnosis Class 2 severe obesity due to excess calories with serious comorbidity and body mass index (BMI) of39.0 to 39.9 in adult ([facility])- Primary documented in this encounter [facility]* Diagnosis Anxiety- Primary Anxiety state, unspecified Depression, unspecified depression type MARYLU (obstructive sleep apnea) Obstructive sleep apnea (adult) (pediatric) Gastroesophageal reflux disease, unspecified whether esophagitis present Class 2 severe obesity due to excess calories with serious comorbidity and body mass index (BMI) of39.0 to 39.9 in adult ([facility]) Screen for colon cancer Special screening for malignant neoplasms, colon Encounter for screening mammogram for malignant neoplasm of breast Ex-cigarette smoker Personal history of tobacco use, presenting hazards to health documented in this encounter [facility]* Diagnosis Nausea and vomiting, unspecified vomiting type- Primary Hypokalemia Hypopotassemia Other fatigue Class 1 obesity due to excess calories with serious comorbidity and body mass index (BMI) of 33.0 to 33.9 in adult documented [facility]* Diagnosis Class 1 obesity due to excess calories with serious comorbidity and body mass index (BMI) of 33.0 to 33.9 in adult- Primary documented [facility]* Diagnosis Class 1 obesity due to excess calories with serious comorbidity and body mass index (BMI) of 33.0 to 33.9 in adult- Primary documented [facility]* Diagnosis Class 1 obesity due to excess calories with serious comorbidity and body mass index (BMI) of 34.0 to 34.9 in adult- Primary Tremor Abnormal involuntary movements Recurrent major depressive disorder, remission status unspecified Chronic bilateral low back pain without sciatica Primary osteoarthritis of left knee Anxiety Anxiety state, unspecified documented [facility] encounter [facility]* Diagnosis Chronic bilateral low back pain without sciatica- Primary documented [facility]* Diagnosis Primary osteoarthritis of left knee- Primary documented in [facility]* Diagnosis Left knee pain, unspecified chronicity- Primary Osteoarthritis of left knee, unspecified osteoarthritis type documented in this encounter [facility]* Diagnosis Well adult exam- Primary Routine [...] pain without sciatica documented in this encounter [facility]* Diagnosis Pre-op evaluation- Primary Primary osteoarthritis of left knee Mild intermittent asthma, unspecified whether complicated Class 1 obesity due to excess calories with serious comorbidity and body mass index (BMI) of 34.0 to 34.9 in adult documented [facility] this encounter [facility]* Diagnosis Acute postoperative pain of left knee- Primary Osteoarthritis of left knee, unspecified osteoarthritis type [facility] Diagnosis Nausea and vomiting, unspecified vomiting type- Primary Acute post-operative pain Hypokalemia Hypopotassemia documented in this encounter [facility]* Diagnosis Chronic bilateral low back pain without sciatica Anxiety Anxiety state, unspecified documented in this encounter [facility]* Diagnosis History of total knee arthroplasty, left- Primary Acute postoperative pain of knee documented in this encounter [facility]* Diagnosis Anxiety Anxiety state, unspecified documented in this encounter [facility]* Attachments The following attachments cannot be sent through Care Everywhere. * Nausea and Vomiting (Polish) * Hypokalemia (Polish) documented in this encounterAvita Health SystemInstructionsNot on [...] unspecified laterality Jimmie Garcia, DO [address] [facility] [place] [address] Papo Irizarry MD [address] [facility] [address] [place] [address] Referral IDStatusReasonStart DateExpiration DateVisits RequestedVisits [id number] Review Specialty Services Required / [facility] for referral (narrative)* Medication Prior Authorization - Pending ReviewSpecialtyDiagnoses / ProceduresReferred By ContactReferred To Contact Jimmie Garcia DO [address] [facility] [place] [address] Phone: tel: fax: Referral IDStatusReasonStart DateExpiration DateVisits RequestedVisits [id number] [facility] for visit Narrative* Diagnostic X-Ray (Routine) - Pending ReviewSpecialtyDiagnoses / ProceduresReferred By ContactReferred To Contact Diagnoses Left knee pain, unspecified chronicity Procedures XR KNEE LEFT 4+ VIEWS Joaquín Baez MD [address] [place] [address] Phone: tel: fax: Referral IDStatusReasonStart DateExpiration DateVisits RequestedVisits [id number] Review/ [facility] for visit Narrative* Auth/CertSpecialtyDiagnoses / ProceduresReferred By ContactReferred To Contact Diagnoses Osteoarthritis of left knee, unspecified osteoarthritis type Osteoarthritis of left knee, unspecified osteoarthritis type [M17.12] Procedures IN ARTHRP KNE CONDYLE&PLATU MEDIAL&LAT COMPARTMENTS IN CPTR-ASST SURGICAL NAVIGATION IMAGE-LESS ARTHROPLASTY KNEE TOTAL ASSISTANCE SURGICAL NAVIGATION MUSCULOSKELETAL IMAGELESS ADD-ON PX Joaquín Baez MD [address] [place] [address] Phone: tel: fax: [facility] [address] [place] [address] Referral IDStatusReasonStart DateExpiration DateVisits RequestedVisits [id number] [facility] for visit Narrative* Diagnostic X-Ray (Routine) - New RequestSpecialtyDiagnoses / ProceduresReferred By ContactReferred To Contact Diagnoses History of total knee arthroplasty, left Procedures XR BONE LENGTH STUDY VikramjarrodericЕлена Bessy [address] [place] [address] Phone: tel: fax: Referral IDStatusReasonStart DateExpiration DateVisits RequestedVisits [id number]/ [facility] Summary Purpose Family History No Family History Records FoundNo Family History Records FoundNo Family History Records FoundNo Family History Records FoundNo Family History Records Found Advance Directives Date ActivatedDate MdjplglcyujYsvkgmfr50/8/2025 11:42 AMDate ActivatedDate IlqcnhiyeckQswhvhow00/8/2025 11:42 AM Reason for Referral SpecialtyDiagnoses / ProceduresReferred By ContactReferred To Contact Diagnoses Morbid obesity (CMS-HCC) Jimmie Garcia DO [address], [facility] [place] [address] Referral IDStatusReasonStart DateExpiration DateVisits RequestedVisits [id number] / ProceduresReferred By Contact Referred To ContactRadiology Diagnoses Ex-cigarette smoker Procedures CT low dose lung screening (Annual) Jimmie Garcia DO [address], [place] [address] Referral IDStatusReasonStart DateExpiration DateVisits RequestedVisits [id number] Review/ Additional Source Comments INFORMATION SOURCE (unrecogn ized section and content) DATE CREATED AUTHOR 04/02/2022 [facility] DATE CREATED AUTHOR AUTHOR'S ORGANIZ ATION 03/16/2024 [facility] DATE CREATED AUTHOR AUTHOR'S ORGANIZ ATION 11/26/2024 [facility] DATE CREATED AUTHOR AUTHOR'S ORGANIZ ATION 04/03/2025 [facility] DATE CREATED AUTHOR AUTHOR'S ORGANIZ ATION 04/28/2025 [facility] Reason for Visit (unrecogniz ed section and content) ReasonCommentsEmesisX3 weeks, states on prescription weight loss medication. Denies abd painReasonOnset DateCommentsMed [id number] PatientReasonOnset DateCommentsMed Fpxazn6602/24/2024easonCommentsFollow-upNot keeping food down, low potassium, holguin tones in urineReasonOnset DateCommentsMed [id number] RefillReasonCommentsWeight Lossdiscussion ReasonComments3 month f/uReasonCommentsPainSpecialtyDiagnoses / Procedures Referred By ContactReferred To ContactOrthopaedic Surgery / Orthopaedics Diagnoses Primary osteoarthritis of left knee Jimmie Garcia, [address] [facility] [facility] [place] [address] Phone: tel: fax: Joaquín Baez MD [address] [place] [address] Phone: tel: fax: Referral IDStatusReasonStart DateExpiration DateVisits RequestedVisits [id number] Review/[id number] Exam ReasonCommentsPre-op ExamAfter antibiotic- left total kneeReasonCommentsPost-Op Problem Left knee replaced on Saturday. Now vomiting for a couple days and got worse today. Pain in left knee 04/09. ReasonCommentsPost Op VisitReasonOnset DateCommentsMed Wofvko0004/27/2025ReasonOnset DateCommentsMed Pumpdj9905/03/2025 Care Teams (unrecognized sec tion and content) Team MemberRelationshipSpecialtyStart DateEnd Date Jimmie Garcia DO [address] [place] [address] PCP - [facility] Medicine10/15/23Team MemberRelationshipSpecialtyStart DateEnd Date Jimmie Garcia DO [address] [place] [address] PCP - [facility]10/15/23Team MemberRelationshipSpecialtyStart DateEnd Date MahnazmookieJimmieDO [address] [place] [address] PCP - [facility]10/15/23Team MemberRelationshipSpecialtyStart DateEnd Date MahnazmookieJimmieDO [address], [place] [address] PCP - [facility] Medicine10/15/23Team MemberRelationshipSpecialtyStart DateEnd Date MahnazmookieJimmieDO [address] [address] [place] [address] [place] [address] PCP - [facility]10/15/23Team MemberRelationshipSpecialtyStart DateEnd Date RadhaClaudiaJimmie RochelleDO [address], [place] [address] PCP - [facility] Medicine10/15/23Team MemberRelationshipSpecialtyStart DateEnd Date Radha Jimmie Byrd DO [address] [place] [address] PCP - GeneralFamily Medicine10/15/23Team MemberRelationshipSpecialtyStart DateEnd Date Radha Jimmie Byrd DO [address], [place] [address] PCP - [facility]mily Medicine10/15/23Team MemberRelationshipSpecialtyStart DateEnd Date Jimmie Garcia DO [address], [place] [address] PCP - [facility] Medicine10/15/23Team MemberRelationshipSpecialtyStart DateEnd Date Jimime Garcia DO [address], [place] [address] [facility]/15/23Team MemberRelationshipSpecialtyStart DateEnd Date Jimmie Garcia DO [address], [place] [address] [facility]10/15/23Team MemberRelationshipSpecialtyStart DateEnd Date Jimmie Garcia DO [address], [place] [address] [facility]10/15/23Team MemberRelationshipSpecialtyStart DateEnd Date Jimmie Garcia DO [address], [place] [address] PCP - GeneralFamily Medicine10/15/23Team MemberRelationshipSpecialtyStart DateEnd Date MahnazmookieClaudiaJimmie Rochelle [address], [place] [address] [facility]10/15/23Team MemberRelationshipSpecialtyStart DateEnd Date Mahnazmookie Jimmie Byrd DO [address], [place] [address] PCP - [facility]10/15/23Team MemberRelationshipSpecialtyStart DateEnd Date MahnazJimmie damico DO [address], [place] [address] PCP - [facility]10/15/23Team MemberRelationshipSpecialtyStart DateEnd Date MahnazJimmie damico DO [address], [place] [address] [facility]10/15/23Team MemberRelationshipSpecialtyStart DateEnd Date Jimmie Garcia DO [address], [place] [address] [facility] - [facility]10/15/23Team MemberRelationshipSpecialtyStart DateEnd Date Jimmie Garcia DO [address], [place] [address] PCP - GeneralFamily Medicine01/04/25Team MemberRelationshipSpecialtyStart DateEnd Date Jimmie Garcia DO [address], [place] [address] [facility]01/04/25Team MemberRelationshipSpecialtyStart DateEnd Date Jimmie Garcia DO [address], [place] [address] PCP - [facility]10/15/23Team MemberRelationshipSpecialtyStart DateEnd Date Jimmie Garcia DO [address], [place] [address] PCP - [facility]10/15/23Team MemberRelationshipSpecialtyStart DateEnd Date Jimmie Garcia DO [address], [place] [address] PCP - [facility]10/15/23Team MemberRelationshipSpecialtyStart DateEnd Date Jimmie Garcia DO [address] [place] [address] PCP - [facility]10/15/23Team MemberRelationshipSpecialtyStart DateEnd Date Jimmie Garcia DO [address] [place] [address] PCP - [facility]01/04/25Team MemberRelationshipSpecialtyStart DateEnd Date Jimmie Garcia DO [address] [place] [address] [facility] - [facility]10/15/23Team MemberRelationshipSpecialtyStart DateEnd Date MahnazmookieJimmie [address] [place] [address] PCP - [facility]01/04/25Team MemberRelationshipSpecialtyStsan jose DateEnd Date MahnazJimmie damico [address] [place] [address] [facility] - [facility]01/04/25Team MemberRelationshipSpecialtyStsan jose DateEnd Date Mahnazmookie JimmieDO alfredo [address] [place] [address] [facility] - [facility]01/04/25Team MemberRelationshipSpecialtyStsan jose DateEnd Date MahnazmookieClaudiaJimmie DO Rochelle [address] [place] [address] [facility] - [facility]10/15/23 Scheduled Active and Recently Administ ered Medications [...] action when infusion is complete: Stopped]) Medication [id number]/[id number]//01/2025 acetaminophen (TYLENOL) tablet 1,000 mg (COMPLETED) 1,000 [...] 2 g, Intravenous, Administer over 15 Minutes, EMPLOYEE BENEFITS COORDINATOR TO PROCEDURE, 1 dose, Starting on Sat04/07/25at 0638, Until Sat04/07/25 at 0939, Other, Pre-operative antibiotic, Pre-op/Pre-Proc * 0939 ($$New Bag$$ - Provider: Fiona Love APRN-[facility]) HYDROmorphone (DILAUDID) injection 0.5 mg (COMPLETED) 0.5 mg, Intravenous, EVERY 15 MINUTES NEEDED, 2 doses, Starting on Sat04/07/25 at 1145, Until Sat04/07/25 at 1206, Severe Pain, Recovery * 1151 (Given - Provider: aMdai Arroyo RN) * 1206 (Given - Provider: [...] the amount of diluent recommended by the accounting/finance tutor. Solution should be sipped slowly, over 5-10 [...] BE BASED ON THE PRIMARY CLINICAL RECORDS. [facility] [employer] [facility]. provides no warranty or guarantee of the accuracy or completeness of information in this document.
--- OUTSIDE RECORDS SUMMARY | 2025-06-08 16:11 | XMS_ITS | CCD ---
Author Organization [facility] Inform ion Partnership [facility] CliniSyga Care Team Providers Care Family Life Counselor Name Role Phone DEDE FALLON Referring Unavailable TYSON HOLLAND Primary Care Unavailable DEDE FALLON Referring Unavailable DEDE FALLON Primary Care Unavailable Unavailable Primary Care Provider Unavailphill e Jimmie Garcia DO Primary Care Provider [phone] Jimmie Garcia DO Primary Care Provider Rakan FULLER, Keila Mathews Attending Unav ailable Radha EMERSON Jimmie Jim Primary Care Mehran Holland MD, Tyson Dow Primary Care Unavailable Rakan GROSSMAN-EDI, Keila Mathews Attending Madi Hampton MD, Manpreet Álvarez Attending Mehran lableonor [facility] Jimmie Jim Primary Care Mehran FULLER, Keila Mathews Attending Unav ailable [facility] Mehran Holland [...] Care Unavailable JOAQUÍN BAEZ Attending Unavailable JOAQUÍN ABEZ Referring Unavailable JIMMIE GARCIA Primary Care Unavailable [...] (1 source)Seasonal allergyPropensity to adverse reactions to [id number] [facility] (20 sources)traMADolDrug Gpvzmrz79-05-7632Mkdzd, Itching, Anaphylaxis, Rash [facility] (1 source)traMADolDrug Ynfckyy57-87-7188SqikKBOMountain View Regional Medical Center (7 sources)Peanut-Containing Drug ProductsPropensity to adverse reactions to fnsg01-41-8166GptwyrhdfdxEFILewisGale Hospital [facility] (20 sources)tree nut, unspecifiedPropensity to adverse reactions to drug 13-96-8279YshhurvuyprDqrAkdwpbTonsil Hospital (20 sources)peanut allergenic extractDrug Hehxujn50-31-4996RrkhmmknetlYaqUineeh Health System Work Phone: (20 sources)PollenPropensity to adverse reactions to uine02-78-7980YouviqlH[facility] (1 source)Nuts (not including peanuts); Translations: [Nuts]Propensity to adverse reactions to food (disorder)[facility] (1 source)Seasonal allergy; Translations: [seasonal allergies]Propensity to adverse reactions (disorder)[facility] (1 source)traMADol; Translations: [Ultram]Drug AllergyK[facility] (6 sources)redtop grass pollen extractDrug Jmyuorl80-84-7803ZtrrpfwNnaor Health System (6 sources)Howes MealPropensity to adverse reactions to [id number] [facility] Medications Current Medications MedicationDrug Class(es)DatesSig (Normalized)Sig (Original)acetaminophen 325 mg oral tablet (10 sources)Start: 24-82-6411fdqb 2 tablets by mouth every four hours as needed Acetaminophen 325 MG tablet Take 2 tablets by mouth every 4 hours as needed for Mild Pain. 50 tablet 1 04/07/2025 ActiveStart: 04-07-2025 End: 42-20-6947fswb 1 tablet by mouth every six hours1,000 mg, Oral, EVERY 6 HOURS NON-STANDARD, First dose on Sat04/07/25 at 1300, Until Discontinued, M aximum dose of acetaminophen is 4000 mg from all sources in 24 hours., Post-op/Post-ProcStart: 93-90-0292kiex 1 dose by mouth every hour1,000 mg, [...] oral tablet (20 sources)Opioid AgonistStart: 04-19-2025 End: 04-50-8497meky 1 tablet by mouth once daily as neededhydroCODone- acetaminophen 5-325 MG tablet Indications: Acute postoperative pain of knee Take 1-2 tablets by mouth every 8 hours as needed for up to 7 days. Do not take over 4000mg acetaminophen daily. 30 tablet 04/27/2025 05/04/2025 ActiveStart: 08-17-2024 End: 11-42-0148uutd 1 tablet by mouth three times daily as neededHYDROcodone- acetaminophen (NORCO) 5-325 mg per tablet TAKE 1 TABLET BY MOUTH 3 TIMES A DAY NEEDED FOR PAINMUST LAST 30 DAYS 08/17/2024 12/03/2024 Discontinued (Therapy completed)Start: 09-18-2023 End: 39-56-9073QPLLZbribnx-acetaminophen (NORCO) 5-325 mg per tablet 09/18/2023 03/19/2024 Discontinued (Therapy completed)take 1 tablet by mouth every six hours as neededHYDROcodone-acetaminophen (NORCO) 5-325 MG per tablet Take 1 tablet by mouth every 6 hours as needed. [id number] 200 actuat albuterol 0.09 mg/actuat metered dose inhaler (12 sources)beta2-Adrenergic AgonistStart: 85-08-1526ghrh 2 puff(s) by inhalation every six hours as needed for wheezingalbuterol sulfate HFA (PROVENTIL;VENTOLIN;PROAIR) 108 (90 Base) MCG/ACT inhaler Indications: Mild in termittent asthma, unspecified whether complicated INHALE 2 PUFFS INTO THE LUNGSEVERY 6 HOURS NEEDED FOR WHEEZING 18 g 07/11/2022 Activealbuterol (PROVENTIL HFA;VENTOLIN HFA) 90 mcg/actuation inhaler Inhale 2 puffs. Active amoxicillin 500 mg oral capsule (7 sources)Penicillin-class AntibacterialStart: 04-27-2025 End: 57-45-6767Azosfxoagtv 500 MG capsule Take 4 capsules 1 hour before procedure 8 capsule 1 04/27/2025 04/27/2026 ActiveStart: 03-15-2025 End: 82-40-9076gfbk 1 capsule by mouth three times dailyamoxicillin (AMOXIL) 500 mg capsule Take 1 capsule (500 mg total) by mouth 3 (three) times a day for 7 days. 21 capsule 03/15/2025 03/22/2025 ActiveStart: 04-07-2024 End: 88-98-0055dbma 1 tablet by mouth onceamoxicillin (AMOXIL) 875 mg tablet Take 1 tablet (875 mg total) by mouth every 12 (twelve) hours for 7 days. 14 tablet 04/07/2024 04/14/2024 Activeapixaban 2.5 mg oral tablet (5 sources)Factor Xa InhibitorStart: 04-08-2025 End: 72-12-2605luoc 2.5 mg by mouth every twelve hours in the morning2.5 mg, Oral, EVERY 12 HOURS, First dose on Ana 04/08/25 at 0900, Until Discontinued, Start in AM day after surgery, Indications: DVT proph, Post-op/Post-ProcStart: 04-07-2025 End: 78-19-6804lvjl 1 tablet by mouth every twelve hoursapixaban (Eliquis) 2.5 MG tablet Take 1 tablet by mouth every 12 hours. 70 tablet 04/07/2025 05/12/2025 Activeascorbic acid 60 mg / beta carotene 5000 unt / copper sulfate 40 mg / dl- alpha tocopheryl acetate 30 unt / sodium selenite 0.04 mg / zinc oxide 40 mg oral tablet (4 sources)Vitamin CStart: 07-37-5492phpk 1 tablet by mouth once dailyMultiple Vitamin (Multivitamin Adult) tablet Take 1 tablet by mouth daily. 30 tablet 04/07/2025 Activecephalexin 500 mg oral capsule (1 source)Cephalosporin AntibacterialStart: 04-07-2025 End: 39-90-4823lekr 1 capsule by mouth every six hourscephALEXin 500 MG capsule Take 1 capsule by mouth every 6 hours for 1 dose. Take 6 hours after lastdose given. 1 capsule 04/07/2025 04/08/2025 Activecholecalciferol 1.25 mg oral capsule (20 sources)Vitamin DStart: 99-22-6348gezl 1 capsule by mouth every week cholecalciferol (VITAMIN D3) 50,000 units capsule TAKE 1 CAPSULE BY MOUTH ONCE A WEEK 12 capsule 1 11/15/2024 ActiveStart: 08-22-2023 End: 13-64-6918pddqrpcaimcostj (VITAMIN D3) 50,000 units capsule 08/22/2023 03/19/2024 Discontinued (Therapy completed)docusate sodium 100 mg oral capsule (5 sources)Start: 04-07-2025 End: 14-54-9801sekl 1 capsule by mouth twice dailyDocusate 100 MG capsule Take 1 capsule by mouth 2 times daily. 60 capsule 04/07/2025 [id number] 0.3 ml EPINEPHrine 1 mg/ml auto-injector (12 sources)alpha-Adrenergic Agonist, beta-Adrenergic Agonist, Catecholamine EPINEPHrine (EPIPEN) 0.3 mg/0.3 mL auto-injector Inject 0.3 mL (0.3 mg total) into the appropriate muscle. ActiveEPINEPHrine 0.3 MG/0.3ML Solution Auto- injector injection Inject 0.3 mL intramuscularly. Activeescitalopram 20 mg oral tablet (20 sources)Serotonin Reuptake InhibitorStart: 08-12-2024 End: 25-07-0192hlsw 1 tablet by mouth in the morningescitalopram (LEXAPRO) 20 mg tablet Take 1 tablet (20 mg total) by mouth in the morning. 90 tablet 1 05/03/2025 ActiveStart: 08-22-2023 End: 85-84-0356gigx 1 tablet by mouth once daily in [...] hydrochloride 25 mg oral tablet (20 sources)AntihistamineStart: 50-85-3841tpqh 1 tablet by mouth every eight hours as neededhydrOXYzine (ATARAX) 25 mg tablet Take 1 tablet (25 mg total) by mouth every 8 (eight) hours as needed for itching. 30 tablet 1 04/29/2025 Active Start: 03-25-2024 End: 96-79-7282lczv 1 tablet by mouth three times daily as neededhydrOXYzine (ATARAX) 25 mg tablet TAKE 1 TABLET BY MOUTH THREE TIMES DAILY NEEDED FOR ITCHING ORANXTIETY 02/09/2025 04/27/2025 Discontinued (Reorder)Start: 02-26-2023 End: 58-87-2112neblYCDbzqk (VISTARIL) 25 mg capsule 08/21/2023 ActiveLORazepam 0.5 mg oral tablet (20 sources)BenzodiazepineStart: 12-03-2024 End: 44-19-6691fdfh 1 tablet by mouth twice daily as needed for anxietyLORazepam (ATIVAN) 0.5 mg tablet Indications: Anxiety Take 1 tablet (0.5 mg total) by mouth 2 (two)times a day as needed for anxiety. 30 tablet 04/26/2025 ActiveMisc Natural Products (TURMERIC, CURCUMIN, PO) (4 sources)Misc Natural Products (TURMERIC, CURCUMIN, PO) Take by mouth daily. Activemultivitamin tablet 1 tablet (1 source)Start: 04-08-2025 End: 42-22-2384feuy 1 tablet by mouth once daily1 tablet, Oral, DAILY, First dose on Ana 04/08/25 at 0900, Until Discontinued, Post-op/Post-Procnaloxone hydrochloride 40 mg/ml nasal spray (4 sources)Opioid AntagonistStart: 04-07-2025 End: 85-01-9387expylvzz 4 MG/0.1ML 1 spray by Nasal route once for 1 dose. Eugene into the nose as directed. Call 911. If no response in 2 minutes use a new nasal spray in other nostril. Repeat until help arrives. 1Each 04/07/2025 Active omeprazole 20 mg delayed release oral capsule (4 sources)Proton Pump InhibitorStart: 55-88-8011vdeo 1 capsule by mouth once dailyomeprazole [address] capsule Take 1 capsule by mouth daily. 30 capsule 04/07/2025 Activeondansetron 4 mg oral tablet (20 sources)Serotonin-3 Receptor AntagonistStart: 04-17-2025 End: mg, Intravenous, ONCE, 1 dose, On 04/17/25 at 0100Start: 04-07-2025 End: 91-27-7458brin 1 tablet by mouth every eight hours as neededOndansetron 4 MG tablet Take 1 tablet by mouth every 8 hours as needed for Nausea / Vomiting or Nausea for up to 3 days. 10 tablet 04/07/2025 04/10/2025 ActiveStart: 04-07-2025 End: 54-13-9159kiho 4 mg intravenously every four hours as needed4 mg, Intravenous, EVERY 4 HOURS NEEDED, Starting on Sat04/07/25 at 1232, Until Sat04/07/25 at 2150, Nausea / Vomiting, Post-op/Post-ProcStart: 04-07-2025 End: mg, Intravenous, ONCE NEEDED, 1 dose, Starting on Sat04/07/25 at 1145, Until Sat04/07/25 at 2150, Nausea / Vomiting, RecoveryStart: 20-41-4020swop 1 tablet by mouth every eight hours as needed for nausea and vomitingondansetron ODT (ZOFRAN ODT) 8 mg disintegrating tablet Dissolve 1 tablet (8 mg total) on tongue every 8 (eight) hours as needed for nausea or vomiting. 20 tablet 1 12/15/2024 ActiveStart: 02-10-2024 End: 11-56-1418ipzw 1 tablet by mouth every eight hours as needed for nausea and vomitingondansetron ODT (ZOFRAN ODT) 8 mg disintegrating tablet Dissolve 1 tablet (8 mg total) on tongue every 8 (eight) hours as needed for nausea or vomiting. 90 tablet 02/24/2024 03/19/2024 Discontinued (Therapy completed) oxyCODONE hydrochloride 5 mg oral tablet (5 sources)Opioid AgonistStart: 04-07-2025 End: 65-22-4767txiPLFGGG 5 MG tablet Indications: Acute postoperative pain of knee 5-10 mg every 6 hours as neededfor moderate to severe pain Ween as tolerated 30 tablet 04/12/2025 ActiveStart: 04-07-2025 End: 87-04-1271gdev 5-10 mg by mouth every four hours as needed5-10 mg, Oral, EVERY 4 HOURS NEEDED, Starting on Sat04/07/25 at 1232, Until Sat04/07/25 at 2150,moderate-severe pain, If pain unrelieved with oxycodone, contact pharmacist to enter order for Oxycodone ER 10mg PO Q12H for 3 days, Post-op/Post-Proc pantoprazole 40 mg delayed release oral tablet (20 sources)Proton Pump InhibitorStart: 04-17-2025 End: 51-95-365029 mg, Intravenous, ONCE, 1 dose, On 04/17/25 at 0415, Dilute each 40 mg vial with 10 mL of NS.All bolus doses, whether 40 mg or 80 mg, should be administered over at least two minutes., Indications: GERDStart: 56-20-0962neaj 1 tablet by mouth once daily before breakfastpantoprazole (PROTONIX) 40 mg EC tablet Take 1 tablet (40 mg total) by mouth every morning before breakfast. 06/18/2024 ActiveStart: 08-22-2023 End: 32-29-1098pmwt 1 tablet by mouth once daily before breakfastpantoprazole (PROTONIX) 40 mg EC tablet Take 1 tablet (40 mg total) by mouth every morning before breakfast. 90 tablet 1 02/24/2024 03/19/2024 Discontinued (Therapy completed)microencapsulated potassium chloride 20 meq extended release oral tablet (4 sources)Start: 04-17-2025 End: 99-78-6812grpv 1 tablet by mouth twice daily at mealtimePotassium chloride 20 MEQ Tab CR tablet Take 1 tablet by mouth 2 times daily with meals for 3 days. 6 tablet 04/17/2025 ActivepredniSONE 20 mg oral tablet (2 sources)Start: 03-25-2025 End: 04-96-6555nwpq 1 tablet by mouth in the morning, then take 1 tablet by mouth at bedtimepredniSONE (DELTASONE) 20 mg tablet Take 1 tablet (20 mg total) by mouth in the morning and 1 tablet (20 mg total) before bedtime. Do all this for 5 days. 10 tablet 03/25/2025 03/30/2025 ActiveStart: 09-01-2024 End: 16-63-6881oatk 1 tablet by mouth three times dailypredniSONE (DELTASONE) 20 mg tablet Take 1 tablet (20 mg total) by mouth 3 (three) times a day for 5 days. 15 tablet 09/01/2024 09/06/2024 Activepregabalin 50 mg oral capsule (20 sources)Start: 06-29-2024 End: 13-98-1778bjhf 1 capsule by mouth three times dailypregabalin (LYRICA) 50 mg capsule Indications: Chronic bilateral low back pain without sciatica Take 1 capsule (50 mg total) by mouth 3 (three) times a day. 90 capsule 04/26/2025 ActiveStart: 02-13-2021 End: 79-15-8613sanesfitkx (LYRICA) 50 mg capsule 09/13/2023 03/19/2024 Discontinued (Therapy completed)promethazine hydrochloride 25 mg oral tablet (14 sources)PhenothiazineStart: 12-16-2023 End: 35-42-3589zeim 1 tablet by mouth every six hours as neededPromethazine 25 MG tablet Take 1 tablet by mouth every 6 hours as needed (Nausea/Vomiting). 10 tablet 1 04/17/2025 Activesemaglutide, weight loss, (WEGOVY) 1 mg/0.5 mL pen injector (20 sources)Start: 31-37-6623decunbirrkj, weight loss, (WEGOVY) 1 mg/0.5 mL pen injector Indications: Class 1 obesity due to excess calories with serious comorbidity and body mass index (BMI) of 34.0 to 34.9 in adult Inject 0.5 mL (1 mg total) under the skin every 7 days. 2 mL 2 12/03/2024 ActiveStart: 11-11-2024 End: 77-82-2154yoxtionkdob, weight loss, (WEGOVY) 1 mg/0.5 mL pen injector Inject 0.5 mL (1 mg total) under the skin every 7 days. 2 mL 2 11/11/2024 12/03/2024 Discontinued (Reorder)Start: 85-55-3739ynkoxgicjlb, weight loss, (WEGOVY) 1 mg/0.5 mL pen injector Inject 0.5 mL (1 mg total) under the skin every 7 days. 2 mL 2 11/11/2024 ActiveStart: 11-12-2023 End: 51-84-8319bwnymxsbpni, weight loss, (WEGOVY) 1 mg/0.5 mL pen injector Indications: Class 2 severe obesity dueto excess calories with serious comorbidity and body mass index (BMI) of 39.0 to 39.9 in adult ([facility]) Inject 0.5 mL (1 mg total) under the skin every 7 days. 2 mL 1 11/12/2023 01/14/2024 Discontinued (Dose adjustment)Start: 63-09-5800oeqvqjbrhdv, weight loss, (WEGOVY) 1 mg/0.5 mL pen injector Indications: Class 2 severe obesity dueto excess calories with serious comorbidity and body mass index (BMI) of 39.0 to 39.9 in adult ([facility]) Inject 0.5 mL (1 mg total) under the skin every 7 days. 2 mL 1 11/12/2023 ActiveSemaglutide,0.25 or 0.5MG/DOS, 2 MG/3ML Solution Pen-injector (4 sources)inject 0.5 mg by subcutaneous injection every weekSemaglutide,0.25 or 0.5MG/DOS, 2 MG/3ML Solution Pen-injector Inject under the skin once a week. ActiveSemaglutide-Weight Management (WEGOVY) 0.25 MG/0.5ML SOAJ SC injection (1 source)Start: 96-71-6361Cgxpwpeltcd-Weight Management (WEGOVY) 0.25 MG/0.5ML SOAJ SC injection Indications: BMI 40.0-44.9, adult ([facility]) Inject 0.25 mg into the skin every 7 days 2 mL 09/18/2023 ActiveSemaglutide-Weight Management (WEGOVY) 0.5 MG/0.5ML SOAJ SC injection (1 source)Start: 69-82-0368Eqcdemehhpv-Weight Management (WEGOVY) 0.5 MG/0.5ML SOAJ SC injection Indications: BMI 40.0-44.9, adult (HCC) , Class 3 severe obesity due to excess calories with body mass index (BMI) of 40.0 to 44.9 in adult, unspecified whether serious comorbidity present ([facility]) Inject 0.5 mg into the skin every 7 days 2 mL 10/03/2023 ActivetiZANidine 4 mg oral tablet (20 sources)Central alpha-2 Adrenergic AgonistStart: 79-06-9995vgfz 1 tablet by mouth every four hours as neededtiZANidine (ZANAFLEX) 4 mg tablet Take 1 tablet (4 mg total) by mouth every 4 (four) hours as needed for muscle spasms. 120 tablet 1 04/12/2025 ActiveStart: 05-12-2024 End: 72-53-4789lxyk 1 tablet by mouth every eight hours [...] 90 tablet 1 11/12/2023 ActiveStart: 08-29-2023 End: 23-09-6380jazu 1 tablet by mouth every eight hours as neededtiZANidine (ZANAFLEX) 4 mg tablet Take 1 tablet (4 mg total) by mouth every 8 (eight) hours as needed for muscle spasms. 270 tablet 02/24/2024 03/19/2024 Discontinued (Therapy completed) Completed/Discontinued Medications MedicationDrug Class(es)DatesSig (Normalized)Sig (Original)bisacodyl 10 mg rectal suppository (1 source)Stimulant LaxativeStart: 04-07-2025 End: 78-81-7126pcty 10 mg rectal route once daily as needed for mvabsrawcvtg20 mg, Rectal, DAILY NEEDED, Starting on Sat04/07/25 at 1232, Until Sat04/07/25 at 2150, constipation, Post-op/Post-Proccalcium chloride 0.0014 meq/ml / potassium chloride 0.004 meq/ml / sodium chloride 0.103 meq/ml / sodium lactate 0.028 meq/ml injectable solution (2 sources)Start: 04-07-2025 End: 28-28-7702Zdlbrgxafti, at 75 mL/hr, CONTINUOUS, Starting on Sat04/07/25 at 1245, Until Sat04/07/25 at 2150, Convert IV to PRN adapter post op day 1 if adequate oral intake, Post-op/Post-ProcceFAZolin 2000 mg injection (1 source)Cephalosporin AntibacterialStart: 04-07-2025 End: 45-32-0626voah 2 g intravenously every eight hours2 g, Intravenous, Administer over 30 Minutes, EVERY 8 HOURS NON-STANDARD, 3 doses, First dose on Sat04/07/25 at 1800, Last dose on Sat04/08/25 at 1000, Post-op/Post-Proc1 ml dexamethasone phosphate 10 mg/ml injection (2 sources)CorticosteroidStart: 04-07-2025 End: 00-24-616609 mg, Intravenous, ONCE, 1 dose, On Sat04/07/25 at 1700, Give dose #2 30 minutes prior to discharge. (dose #1 given pre-operatively by anesthesia), Post-op/Post-ProcStart: 04-07-2025 End: 51-93-8808hvim 10 mg intravenously once10 mg, Intravenous, INTRA-OP ONCE, Starting on Sat04/07/25 at 1232, Until Sat04/07/25 at 2150, Anesthesia provider to administer at induction., Intra-op/Intra-Proc1 ml diphenhydrAMINE hydrochloride 50 mg/ml cartridge (1 source)Histamine-1 Receptor AntagonistStart: 04-17-2025 End: 84-90-727157.5 mg, Intravenous, ONCE, 1 dose, On 04/17/25 at 0245 docusate sodium 50 mg / sennosides, halfway 8.6 mg oral tablet (1 source)Start: 04-07-2025 End: 19-89-0325wtjj 2 tablets by mouth twice daily as needed for constipation2 tablet, Oral, 2 TIMES DAILY NEEDED, Starting on Sat04/07/25 at 1232, Until Sat04/07/25 at 2150, constipation, Post-op/Post-Proc1 ml HYDROmorphone hydrochloride 1 mg/ml cartridge (5 sources)Opioid AgonistStart: 04-17-2025 End: mg, Intravenous, ONCE, 1 dose, On 04/17/25 at 0200Start: 04-07-2025 End: 46-15-5315odxi 0.5-1 mg intravenously every four hours as needed0.5-1 mg, Intravenous, EVERY 4 HOURS NEEDED, Starting on Sat04/07/25 at 1232, Until Sat04/07/25 at 2150, Severe Pain, Post-op/Post-ProcStart: 04-07-2025 End: 50.5 mg, Intravenous, EVERY 15 MINUTES NEEDED, 2 doses, Starting on Sat04/07/25 at 1145, Until Sat04/07/25 at 1206, Severe Pain, Recoveryibuprofen 600 mg oral tablet (3 sources)Nonsteroidal Anti-inflammatory Drug End: 47-22-5678zria 1 tablet by mouth every six hoursIbuprofen 600 MG tablet Take 1 tablet by mouth every 6 hours. 04/07/2025 Discontinued (Therapy compl eted)iohexol (OMNIPAQUE) 350 MG/ML injection 75 mL (1 source)Start: 04-17-2025 End: mL, Intravenous, ONCE, 1 dose, On 04/17/25 at 0200, Extravasation Risk., Radiology Proceduremetoclopramide 5 mg oral tablet (14 sources)Dopamine-2 Receptor AntagonistStart: 03-19-2024 End: 08-20-3052ivywspdvegrhfe (REGLAN) 5 mg tablet Take 1 tablet [...] the amount of diluent recommended by the collar pointer. Solution should be sipped slowly, over 5-10 minutes.Potassium Chloride / Sodium Chloride (1 source)Start: 04-17-2025 End: 27-39-233029 mEq, Intravenous, at 125 mL/hr, Administer over 4 Hours, ONCE, 1 dose, On 04/17/25 at 0145prochlorperazine 5 mg/ml injectable solution (1 source)PhenothiazineStart: 04-17-2025 End: 55-11-781867 mg, Intravenous, ONCE, 1 dose, On 04/17/25 at 0245, For IV route: dilute dose with 10mL normal saline and give by slow IV push at a rate of 5mg/min. Maximum of 40mg/day.Promethazine (PHENERGAN) 6.25 mg in Sodium chloride 0.9%, with overfill 60.25 mL (total volume) IVPB (1 source)Start: 04-07-2025 End: 03-69-9648kqhh 6.25 mg intravenously every hour as needed6.25 mg, Intravenous, at 180.8 mL/hr, Administer over 20 Minutes, EVERY 1 HOUR NEEDED, 2 doses, Starting on Sat04/07/25 at 1145, Until Sat04/07/25 at 2150, Other, Nausea and vomiting, Extravasation Risk, RecoveryROPivacaine HCl-NaCl 0.2-0.9 % On-Q pump (1 source)Start: 04-07-2025 End: 84-54-0261Owla-neural, CONTINUOUS, Starting on Sat04/07/25 at 1200, Until Sat04/07/25 at 2150, Recovery to Continuesemaglutide, weight loss, (WEGOVY) 0.25 mg/0.5 mL pen injector (3 sources)Start: 08-31-2024 End: 90-10-0443irabdhrtuns, weight loss, (WEGOVY) 0.25 mg/0.5 mL pen injector Indications: Class 1 obesity due to excess calories with serious comorbidity and body mass index (BMI) of 33.0 to 33.9 in adult Inject 0.5 mL (0.25 mg total) under the skin every 7 days. 2 mL 2 08/31/2024 10/13/2024 Discontinued (Dose ad justment)Start: 19-46-5329jrudltcjpov, weight loss, (WEGOVY) 0.25 mg/0.5 mL pen injector Indications: Class 1 obesity due to excess calories with serious comorbidity and body mass index (BMI) of 33.0 to 33.9 in adult Inject 0.5 mL (0.25 mg total) under the skin every 7 days. 2 mL 2 08/31/2024 Active semaglutide, weight loss, (WEGOVY) 0.5 mg/0.5 mL pen injector (3 sources)Start: 10-13-2024 End: 62-71-8038poimqfaicde, weight loss, (WEGOVY) 0.5 mg/0.5 mL pen injector Indications: Class 1 obesity due to excess calories with serious comorbidity and body mass index (BMI) of 33.0 to 33.9 in adult Inject 0.5 mL (0.5 mg total) under the skin every 7 days. 2 mL 1 10/13/2024 11/11/2024 Discontinued (Dose adjustment)Start: 63-91-7980rpmngajmixx, weight loss, (WEGOVY) 0.5 mg/0.5 mL pen injector Indications: Class 1 obesity due to excess calories with serious comorbidity and body mass index (BMI) of 33.0 to 33.9 in adult Inject 0.5 mL (0.5 mg total) under the skin every 7 days. 2 mL 1 10/13/2024 Activesemaglutide, weight loss, (WEGOVY) 1.7 mg/0.75 mL pen injector (5 sources)Start: 01-14-2024 End: 61-34-7555cpspybfgxlz, weight loss, (WEGOVY) 1.7 mg/0.75 mL pen injector Indications: Class 2 severe obesity due to excess calories with serious comorbidity and body mass index (BMI) of 39.0 to 39.9 in adult ([facility]) Inject 0.75 mL (1.7 mg total) under the skin every 7 days. 3 mL 2 01/14/2024 03/19/2024 Discontinued (Side effects)Start: 78-25-9912xivqhxqsyei, weight loss, (WEGOVY) 1.7 mg/0.75 mL pen injector Indications: Class 2 severe obesity due to excess calories with serious comorbidity and body mass index (BMI) of 39.0 to 39.9 in adult ([facility]) Inject 0.75 mL (1.7 mg total) under the skin every 7 days. 3 mL 2 01/14/2024 Jjyfqz885 ml sodium chloride 9 mg/ml injection (2 [...] bag 1 Bag (1 source)Start: 04-07-2025 End: 53-55-2557izzyw joint mixture (no clonidine) premade bag 1 Bagtranexamic acid 650 mg oral tablet (1 source)Antifibrinolytic AgentStart: 04-07-2025 End: 30-48-2267ipvn 1 dose by mouth every two hours1,950 mg, Oral, ONCE DIRECTED, 1 dose, Starting on 04/07/25 at 0638, Until Sat04/07/25 at 0705, See admin instructions, Administer 2 hours preop, Pre-op/Pre-ProcWEGOVY 0.5 mg/0.5 mL pen injector (5 sources)Start: 11-07-2023 End: 69-92-3439tkjggg 0.5 mL by subcutaneous injection every weekWEGOVY 0.5 mg/0.5 mL pen injector Indications: Morbid obesity ([facility]) Inject 0.5 mL (0.5 mg total) under the skin once a week. 2 mL 1 11/07/2023 11/12/2023 Discontinued (Dose adjustment)Start: 49-82-5320hbwvaj 0.5 mL by subcutaneous injection every weekWEGOVY 0.5 mg/0.5 mL pen injector Indications: Morbid obesity ([facility]) Inject 0.5 mL (0.5 mg total) under the skin once a week. 2 mL 1 11/07/2023 ActiveStart: 10-10-2023 End: 86-10-7794PQEODP 0.5 mg/0.5 mL pen injector INJECT 0.5 MG INTO THE SKIN EVERY 7 DAYS 10/10/2023 11/07/2023 Discontinued (Reorder)Start: 67-99-4364YHKAGE 0.5 mg/0.5 mL pen injector INJECT 0.5 MG INTO THE SKIN EVERY 7 DAYS 10/10/2023 Active Problems Active Problems Problem ClassificationProblemDateDocumented DateEpisodic/ChronicAnxiety disorders (20 sources)Generalized anxiety disorder; Translations: [Generalized anxiety disorder]Onset: [id number] (20 sources)Mild intermittent asthma; Translations: [Mild intermittent asthma, uncomplicated]Onset: 671359-41-8125JvcxmcqZkbvxagdoh disorders (20 sources)Gastroesophageal reflux disease; Translations: [Gastro-esophageal reflux disease without esophagitis]Onset: 979701-33-7701JxpbufnUwgcb and electrolyte disorders (4 sources)Hypokalemia; Translations: [Hypokalemia]Onset: EpisodicHeadache; including migraine (20 sources)Migraine without aura, not refractory ; Translations: [Migraine without aura, not intractable, without status migrainosus]Onset: 07-08-2020 86-28-8927SsqdspgYexsmjenqcipj and screening for infectious disease (2 sources)Vaccination needed; Translations: [Encounter for immunization] 41-59-6911XwzbttszVdgg disorders (20 sources)Major depressive disorder; Translations: [Major depressive disorder, single episode, unspecified]Onset: 338077-00-1558NknojzcYhjine and vomiting (6 sources)Vomiting; Translations: [Nausea and vomiting]Onset: 03-15-2024 EpisodicOsteoarthritis (20 sources)Osteoarthritis of knee; Translations: [Unilateral primary osteoarthritis, unspecified knee]Onset: 60-60-213795240995-29-2025UipqyctQxzle connective tissue disease (1 source)History of left total knee replacement; Translations: [Presence of left artificial knee joint]90-20-1445UteowexLpvxy connective tissue disease (2 sources)Presence of left artificial knee joint; Translations: [Presence of left artificial knee joint]Onset: 66-42-0313KrsbhrfCefcu nervous system disorders (20 sources)Circadian rhythm sleep disorder of shift work type; Translations: [Circadian rhythm sleep disorder,shift work type]Onset: ChronicOther nervous system disorders (4 sources)Other acute postprocedural pain; Translations: [Pain in joint, lower leg]Onset: 040966-76-2861IyzzafxuXhrnr nervous system disorders (1 source)Acute postoperative pain; Translations: [Other acute postprocedural pain]29-40-9486ZtflftncAhxmc non-traumatic joint disorders (3 sources)Pain in left knee; Translations: [Pain in joint, lower leg]Onset: 468067-00-8897UqstxttaJfhxo non-traumatic joint disorders (2 sources)Pain in unspecified knee; Translations: [Pain in unspecified knee] Onset: 26-78-1179WjynianwTavke nutritional; endocrine; and metabolic disorders (1 source)Morbid (severe) obesity due to excess calories; Translations: [Morbid (severe) obesity due to excess calories]Onset: 51-50-7544BekuhmkMrdbk nutritional; endocrine; and metabolic disorders (1 source)Body mass index (BMI) 40.0-44.9, adult; Translations: [Body mass index (BMI) 40.0-44.9, adult]Onset: 74-63-9952LcvhqpcQpbae nutritional; endocrine; and metabolic disorders (3 sources)Severe obesity; Translations: [Morbid (severe) obesity due to excess calories]27-57-6545RraoqqmMxnzp nutritional; endocrine; and metabolic disorders (20 sources)Obesity caused by energy imbalance; Translations: [Class 1 obesity due to excess calories with serious comorbidity and body mass index (BMI) of 33.0 to 33.9 in adult]Onset: 358837-80-5071DanqntwSggdp nutritional; endocrine; and metabolic disorders (10 sources)Obesity; Translations: [Obesity, unspecified]Onset: 03-19-2024 80-44-1184OkcqmlvDrmze screening for suspected conditions (not mental disorders or infectious disease) (4 sources)Patient encounter status; Translations: [Encounter for screening for malignant neoplasm of colon]47-90-9212WokmzfjdXwbig upper respiratory infections (1 source)Recurrent acute sinusitis; Translations: [Other acute recurrent sinusitis]57-85-0515SceqzhqcUvsyowdb codes; unclassified (20 sources)Obstructive sleep apnea syndrome; Translations: [Obstructive sleep apnea (adult) (pediatric)]Onset: 000307-43-5044IispnvgWbaplmexbvqo (2 sources)Left knee pain, unspecified ooazprhxit61-18-8781 Past or Other Problems Problem ClassificationProblemDateDocumented DateEpisodic/ChronicHeadache; including migraine (20 sources)Headache disorder; Translations: [Other headache syndrome]Onset: 526773-51-8502FwqyteymElsplsc and fatigue (1 source)Fatigue; Translations: [Other fatigue]89-99-0490IphbkwbuPkyt disorders (20 sources)Mood disordersOnset: 10-15-2023 Resolved: Other gastrointestinal disorders (1 source)History of bariatric surgical procedure; Translations: [Bariatric surgery status]Onset: 874273-78-1106TzzqpaufEknup nervous system disorders (16 sources)Tremor; Translations: [Tremor, unspecified]Onset: 12-03-2024 26-05-3189EhvfoulwSwlrq nutritional; endocrine; and metabolic disorders (20 sources)Morbid obesity; Translations: [Morbid (severe) obesity due to excess calories]Onset: 09-21-2015 Resolved: 183340-67-7721FjilkxgZwzavtamo and history of mental health and substance abuse codes (1 source)Ex-cigarette smoker; Translations: [Personal history of nicotine dependence]38-25-9158SeiinarzLldffjjnmcf; intervertebral disc disorders; other back problems (20 sources)Chronic low back pain; Translations: [Chronic bilateral low back pain without sciatica]Onset: 728648-67-6479UxuviaccOrhvggwdwsam (5 sources)Onset: 256563-27-1868Tnhdxplfhtsc (1 source)Acute postoperative pain of left umgo28-39-3002Bqqcbjgqywxt (2 sources)History of left total knee bjwndiwtrdg89-68-8009 Results Test NameValueInterpretationReference RangeFacilityCBCon 12-92-4314QTBNUOVV BAS 0.0 10*3/uLNormal0.0-0.2ASaint Peter's University HospitalComment on above:Performed By: #### PTT, MG, PT, ACBC, CMPF #### Testing performed at [address] [address]CZALGIFW EOS0.3 10*3/uLNormal0.0-0.7ASaint [facility]'s [facility] Hospital Comment on above:Performed By: #### PTT, MG, PT, ACBC, CMPF #### Testing performed at [address] [address]IPQRXGKH NEUTROPHIL COUNT4.3 10*3/uLNormal1.4-6.5ASaint Peter's University HospitalComment on above:Performed By: #### PTT, MG, PT, ACBC, CMPF #### Testing performed at [address] [address]Nbnfbtran/100 WBC (Bld)0.3 %Normal0.0-2.0[facility] Comment on above:Performed By: #### PTT, MG, PT, ACBC, CMPF #### Testing performed at [address] [address]OHCGYMUPA DIFFNormalASaint Peter's University HospitalComment on above: Performed By: #### PTT, MG, PT, ACBC, CMPF #### Testing performed at [address] [address]Foqafiraedk/100 WBC (Bld)3.7 %Normal0.0-11.0[facility] CenterComment on above:Performed By: #### PTT, MG, PT, ACBC, CMPF #### Testing performed at [address] [address]Xonnsihwakl (Bld) [#/Vol]2.0 10*3/uLNormal1.2-3.4ASaint Peter's University HospitalComment on above:Performed By: #### PTT, MG, PT, ACBC, CMPF #### Testing performed at [address] [address]Ryqawcjysti/100 WBC (Bld)26.9 %Ecegpl01.0-55.0[facility] CenterComment on above:Performed By: #### PTT, MG, PT, ACBC, CMPF #### Testing performed at [address] [address]Bhnjxkhna (Bld) [#/Vol]0.8 10*3/uLHigh0.0-0.7ASt. Mary's Medical Center, Ironton Campusment on above:Performed By: #### PTT, MG, PT, ACBC, CMPF #### Testing performed at [address] [address]Widlmhgcf/100 WBC (Bld)11.0 %High0.0-10.0[facility] Comment on above:Performed By: #### PTT, MG, PT, ACBC, CMPF #### Testing performed at [address] [address]Edfpixselvl/100 WBC (Bld)58.1 %Krbkbj42.0-75.0[facility] Hospitalment on above:Performed By: #### PTT, MG, PT, ACBC, CMPF #### Testing performed at [address] [address]Yjsadzfszos distribution width (RBC) [Ratio]13.4 %Normal 11.5-14.5ASt. Mary's Medical Center, [facility]ont[facility] Campusment on above:Performed By: #### PTT, MG, PT, ACBC, CMPF #### Testing performed at [address] [address]Dloshaolmy (Bld) [Volume fraction]31.7 %Low36.0-48.0[facility] Hospitalment on above:Performed By: #### PTT, MG, PT, ACBC, CMPF #### Testing performed at [address] [address]Kcyjlyegsa (Bld) [Mass/Vol]10.7 g/dLLow12.0-16.0[facility] CenterComment on above:Performed By: #### PTT, MG, PT, ACBC, CMPF #### Testing performed at [address] [address]XWY (RBC) [Entitic mass]31.6 kgNsznua86.0-35.0[facility] HospitalComment on above:Performed By: #### PTT, MG, PT, ACBC, CMPF #### Testing performed at [address] [address]UQUI (RBC) [Mass/Vol]33.9 g/vDHqpyjz56.0-37.0[facility] HospitalComment on above:Performed By: #### PTT, MG, PT, ACBC, CMPF #### Testing performed at [address] [address]MOE (RBC) [Entitic vol]93.3 yNHrlhli51.0-100.0[facility] CenterComment on above:Performed By: #### PTT, MG, PT, ACBC, CMPF #### Testing performed at [address] [address]Qudprmki mean volume (Bld) [Entitic vol]8.2 fLNormal7.4-11.0 [facility] CenterComment on above:Performed By: #### PTT, MG, PT, ACBC, CMPF #### Testing performed at [address] [address]Senronpzt (Bld) [#/Vol]462 10*3/bYOard366-895IwhibMatheny Medical And Educational CenterComment on above:Performed By: #### PTT, MG, PT, ACBC, CMPF #### Testing performed at [address], [place] [address]XXA (Bld) [#/Vol]3.40 10*6/uLLow4.0-5.4ABath Community Hospital on above:Performed By: #### PTT, MG, PT, ACBC, CMPF #### Testing performed at [address] [address]ODN (Bld) [#/Vol]7.4 10*3/uLNormal3.6-11.0[facility] CenterComment on above:Performed By: #### PTT, MG, PT, ACBC, CMPF #### Testing performed at [facility] [address] [facility], [place] [address]YGY, EDIF, PLATELETon 40-92-9605EDAFITUK BASOPHIL COUNT0.0 10*3/uL0.0 - 0.2 10*3/uLMercy Health St. Elizabeth [facility] HospitalBasophils/100 WBC (Bld)0.3 %0.0 - 2.0 %[facility] HospitalDifferential cell count method Nom (Bld)AUTO DIFF%[facility] HospitalEosinophils (Bld) [#/Vol]0.3 10*3/uL0.0 - 0.7 10*3/uLMercy Health St. [facility] HospitalEosinophils/100 WBC (Bld)3.7 %0.0 - 11.0 %[facility] HospitalErythrocyte distribution width (RBC) [Ratio]13.4 %11.5 - 14.5 %[facility] HospitalHematocrit (Bld) [Volume fraction]31.7 %Low36.0 - 48.0 %[facility] HospitalHemoglobin (Bld) [Mass/Vol]10.7 g/dLLowMercy Health St. Elizabeth [facility] HospitalInterpretation and review of laboratory resultsAbnormUC Medical CenterLymphocytes (Bld) [#/Vol]2.0 10*3/uL1.2 - 3.4 10*3/uLMercy Health St. Elizabeth [facility] HospitalLymphocytes/100 WBC (Bld)26.9 %20.0 - 55.0 %[facility] HospitalMCH (RBC) [Entitic mass]31.6 pg26.0 - 35.0 PGAMercy Health Lorain HospitalMCHC (RBC) [Mass/Vol]33.9 g/dLMercy Health St. Elizabeth Young[facility] HospitalMCV (RBC) [Entitic vol]93.3 [facility] HospitalMonocytes (Bld) [#/Vol]0.8 10*3/uLHigh0.0 - 0.7 10*3/uLMercy Health St. [facility] HospitalMonocytes/100 WBC (Bld)11.0 %High0.0 - 10.0 %[facility] SystemNeutrophils (Bld) [#/Vol]4.3 10*3/uL1.4 - 6.5 10*3/[facility] HospitalNeutrophils/100 WBC (Bld)58.1 %37.0 - 75.0 %[facility] HospitalPlatelet mean volume (Bld) [Entitic vol]8.2 [facility] SystemPlatelets (Bld) [#/Vol] 462 10*3/oFPoje940 - 400 10*3/[facility] SystemRBC (Bld) [#/Vol]3.40 10*6/uL Low4.0 - 5.4 10*6/[facility] HospitalWBC (Bld) [#/Vol]7.4 10*3/uL3.6 - 11.0 10*3/[facility] HospitalCMP FASTINGon 04-17-2025:G RATIO 1.2 RATIONormalMatheny Medical And Educational CenterComment on above:Performed By: #### PTT, MG, PT, ACBC, CMPF #### Testing performed at [address] [address]Webpujx [Mass/Vol]3.6 g/dLNormal3.5-5.0[facility] Comment on above:Performed By: #### PTT, MG, PT, ACBC, CMPF #### Testing performed at [address] [address]NFZ [Catalytic activity/Vol]146 U/TBoep86-010YqoyrMatheny Medical And Educational CenterComment on above:Performed By: #### PTT, MG, PT, ACBC, CMPF #### Testing performed at [address] [address]OPD [Catalytic activity/Vol]15 U/LNormal<35[facility] CenterComment on above:Performed By: #### PTT, MG, PT, ACBC, CMPF #### Testing performed at [address] [address]LNE [Catalytic activity/Vol]24 U/PNohmcf45-41AlobyMatheny Medical And Educational CenterComment on above:Performed By: #### PTT, MG, PT, ACBC, CMPF #### Testing performed at [address] [address]Iyxpwjozm [Mass/Vol]0.8 mg/dLNormal0.2-1.3ASaint Peter's University HospitalComment on above:Performed By: #### PTT, MG, PT, ACBC, CMPF #### Testing performed at [address] [address]Ffosrjk [Mass/Vol]9.5 mg/dLNormal8.4-10.2ASaint [facility] Comment on above:Performed By: #### PTT, MG, PT, ACBC, CMPF #### Testing performed at [address] [address]Wskginmi [Moles/Vol]105 mmol/AWxfvpl52-909QrhkwMatheny Medical And Educational CenterComment on above:Result Comment: Please note: Triglyceride levels of 600mg/dL or higher may positively bias chlorideresults by approximately 2.1 mmol Performed By: #### PTT, MG, PT, ACBC, CMPF #### Testing performed at [address] [address]QQ4 [Moles/Vol]23 mmol/UDfnebn23-93JfxtnMatheny Medical And Educational Center Comment on above:Performed By: #### PTT, MG, PT, ACBC, CMPF #### Testing performed at [address] [address]Wcpgovjqmu [Mass/Vol]0.60 mg/dLLow0.70-1.20[facility] CenterComment on above:Performed By: #### PTT, MG, PT, ACBC, CMPF #### Testing performed at [address] [address]WNP InformationAverage GFR for 50-59 years old = 93.NormalMatheny Medical And Educational CenterComment on above:Result Comment: Chronic Kidney disease, GFR = <60. Kidney failure, GFR = <15. The GFR estimate is not adjusted for extreme body surface area or acute process, nor has it been validated for women or ethnic groups other than and . MDRD EquationPerformed By: #### PTT, MG, PT, ACBC, CMPF #### Testing performed at [address] [address]SQG/1.73 sq M.predicted MDRD (S/P/Bld) [Vol rate/Area]109 mL/min/{1.73_m2}NormalMatheny Medical And Educational CenterComment on above:Performed By: #### PTT, MG, PT, ACBC, CMPF #### Testing performed at [address] [address]Bgvxpzu [Mass/Vol]122 mg/fXUdts63-997FhwqqMatheny Medical And Educational Center Comment on above:Result Comment: NORMAL <100 mg/dL PREDIABETES 101-126 mg/dL DIABETES 126 mg/dL or higherPerformed By: #### PTT, MG, PT, ACBC, CMPF #### Testing performed at [address] [address]Zfcrfpxuz [Moles/Vol]3.0 mmol/LLow3.5-5.1ASaint [facility] Comment on above:Performed By: #### PTT, MG, PT, ACBC, CMPF #### Testing performed at [address] [address]Doxstyd [Mass/Vol]6.6 g/dLNormal6.3-8.2ASaint [facility] Comment on above:Performed By: #### PTT, MG, PT, ACBC, CMPF #### Testing performed at [address] [address]Mefxls [Moles/Vol]140 mmol/AMpxalx770-518MhytoMatheny Medical And Educational Center Comment on above:Performed By: #### PTT, MG, PT, ACBC, CMPF #### Testing performed at [address] [address]Agld nitrogen [Mass/Vol]7 mg/dLNormal7-20[facility] Comment on above:Performed By: #### PTT, MG, PT, ACBC, CMPF #### Testing performed at [address] [address]IKNFQMDOVNZHE METABOLIC PANELon 11-94-8845Eocytrg [Mass/Vol]3.6 g/dL3.5 - 5.0 g/dLKettering Health Miamisburg SystemAlbumin/Globulin [Mass ratio]1.2 {ratio} RATIOMercy Health St. [facility] HospitalALP [Catalytic activity/Vol]146 U/LHigh38 - 126 U/[facility] CenterALT [Catalytic activity/Vol]15 U/LNINF - 35 U/[facility] AST [Catalytic activity/Vol]24 U/L14 - 36 U/[facility] Medical CenterBilirubin [Mass/Vol]0.8 mg/dL0.2 - 1.3 mg/dLMercy Health St. Elizabeth [facility] HospitalCalcium [Mass/Vol]9.5 mg/dL 8.4 - 10.2 mg/dLMercy Health St. Elizabeth [facility] HospitalChloride [Moles/Vol]105 mmol/[facility] Medical CenterComment on above:Please note: Triglyceride levels of 600mg/dL or higher may positively bias chloride results by approximately 2.1 mmolCO2 [Moles/Vol]23 mmol/[facility] Medical CenterCreatinine [Mass/Vol]0.60 mg/dLLow0.70 - 1.20 mg/dL [facility] HospitalGFR COMMENTAverage GFR for 50-59 years old = 93.[facility] HospitalComment on above:Chronic Kidney disease, GFR = <60. Kidney failure, GFR = <15. The GFR estimate is not adjusted for extreme body surface area or acute process, nor has it been validated for women or ethnic groups other than and . MDRD Equation GFR/1.73 sq M.predicted MDRD (S/P/Bld) [Vol rate/Area]109 mL/min/{1.73_m2} ml/min/1.73sq.[facility] HospitalGlucose post fast [Mass/Vol]122 mg/dLHighMercy Health St. Elizabeth [facility] HospitalComment on above: NORMAL <100 mg/dL PREDIABETES 101-126 mg/dL DIABETES 126 mg/dL or higher Interpretation and review of laboratory resultsAbnormalAMercy Health [facility] Potassium [Moles/Vol]3.0 mmol/LLowAMansfield Hospital SystemProtein [Mass/Vol]6.6 g/dL 6.3 - 8.2 g/dLThe University of Toledo Medical Centerodium [Moles/Vol]140 mmol/[facility] Urea nitrogen [Mass/Vol]7 mg/dL7 - 20 mg/dLMercy Health St. Elizabeth [facility] HospitalCT ABDOMEN/PELVIS WITH CONTRASTon 54-74-8152AR ABDOMEN/PELVIS WITH CONTRASTCT OF THE ABDOMEN AND [...] findings or inflammatory change. 3. Prior gastric bypass.[facility] Abdomen and Pelvis W contrast Angelina 42-27-9366JHQPGTVPIY: 1. Moderate compact feces throughout. Possible constipation. [...] or inflammatory change. 3. Prior gastric bypass. [facility] HospitalRadiology Study observation (narrative)[facility] Abdomen and Pelvis W contrast IVOrdered By: Rakan Cheema on 97-66-4581BqiurMercy Health Lorain Hospital Work Phone: [place]CTATE, BLOODon 19-69-2172Uilgsiruntauya and review of laboratory resultsAbnormUC Medical CenterLactate [Moles/Vol]2.6 mmol/L Critically high0.7 - 2.0 mmol/[facility] SystemComment on above:PLEASE REPEAT INITIAL CRITICAL IN 3 HOURS IF ED OR INPATIENT SEPSIS PATIENT Result called to read back by: Bessy DE LA CRUZ 04/17/2025 @ 01:08 by [facility] HospitalCTATE,BLOODon 47-23-2724Nolssvb [Moles/Vol]2.6 mmol/L Critically high0.7-2.0[facility] Educational CenterComment on above:Result Comment: PLEASE REPEAT INITIAL CRITICAL IN 3 HOURS IF ED OR INPATIENT SEPSIS PATIENT Result called to read back by: Bessy DE LA CRUZ 04/17/2025 @ 01:08 by NAZARETH HOSPITALerformed By: #### PT #### Testing performed at [address] [address]VYVMXQPTTcc 40-52-6846Btgpttyvy [Mass/Vol]1.7 mg/dLMercy Health St. Elizabeth [facility] HospitalMagnesium [Mass/Vol]1.7 mg/dLNormal1.6-2.3ASaint [facility]'s [facility] HospitalComment on above:Performed By: #### PTT, MG, PT, ACBC, CMPF #### Testing performed at [address], [place] [address]Jx Panel Informationon 22-33-8454PrhodSumma Health Barberton CampusPROTIMEon 41-16-1150FVH Coag (PPP) [Relative time]0.95 {INR}Normal 0.85-1.10ASaint Peter's University HospitalComment on above:Result Comment: 2.0-3.0 THERAPEUTIC RANGE 2.5-3.5 MECHANICAL VALVE RANGEPerformed By: #### PTT, MG, PT, ACBC, CMPF #### Testing performed at [address] [address]VJ Coag (PPP) [Time]12.7 aOlfwin90.8-14.4ASaint [facility]'s [facility] Hospital Comment on above:Performed By: #### PTT, MG, PT, ACBC, CMPF #### Testing performed at [address], [place] [address]TIFCZYL-APXfy 21-44-3012HZP Coag (PPP) [Relative time]0.95 {INR}0.85 - 1.10AMercy Health Lorain HospitalComment on above: 2.0-3.0 THERAPEUTIC RANGE 2.5-3.5 MECHANICAL VALVE RANGE PT Coag (PPP) [Time]12.7 [facility] HospitalPTSierra [facility] 10-43-7047nPPI Coag (Bld) [Time]33.5 [facility] HospitalComment on above: CARDIAC AND PE/DVT THERAPUTIC RANGE 69-97 SEC VASCULAR/THREATENED LIMB THERAPUTIC RANGE 80-112 SEC aPTT Coag (Bld) [Time]33.5 oHgpozw91.4-34.7ASaint Peter's University HospitalComment on above:Result Comment: CARDIAC AND PE/DVT THERAPUTIC RANGE 69-97 SEC VASCULAR/THREATENED LIMB THERAPUTIC RANGE 80-112 SECPerformed By: #### PTT, MG, PT, ACBC, CMPF #### Testing performed at [address] [address]RF KNEE LEFT 1-2 VIEWSon 40-96-3479ZF KNEE LEFT 1-2 VIEWSEXAM: XR KNEE LEFT 1-2 VIEWS HISTORY: postop COMPARISON: None. IMPRESSION: 1. No acute fracture or malalignment. 2. Arthroplasty. No evidence of acute hardware complication. Postsurgical changes within the adjacent soft tissues. 3. Tiny quadriceps enthesophyte.NormalMatheny Medical And Educational CenterRAPID TOX SCREEN,URINEon 85-41-1139IXDKVAPHFQALmcbntzbVrdzzsSAVXKHAQDxvkc [facility] Comment on above:Result Comment: <500 ng/ml CUTOFFPerformed By: #### PT #### Testing performed at [address] [address]BKSHOFDNQMFQQgotashuWtowddGIODWWHQAbhuo [facility] HospitalComment on above:Result Comment: <200 ng/ml CUTOFFPerformed By: #### PT #### Testing performed at [address] [address]VHGHMTNEYYJQNXUMvcmuytxYbufmfbwJIHQVQJSGnhjf [facility] Comment on above:Result Comment: <200 ng/ml CUTOFF *Unconfirmed Screening Result* Unconfirmed screening results are to be used only for medical treatment purposes.Performed By: #### PT #### Testing performed at [address] [address]FMAMQOCGRJLXSEglnjpjtFfvukiABDTYIJQNvvcz [facility] Comment on above:Result Comment: <10 ng/ml CUTOFFPerformed By: #### PT #### Testing performed at [address] [address]XRSNJLURQQGXUiittnjuOftaekmcFRIPWMRVDjzgv [facility] Comment on above:Result Comment: <50 ng/ml CUTOFF *Unconfirmed Screening Result* Unconfirmed screening results are to be used only for medical treatment purposes.Performed By: #### PT #### Testing performed at [address] [address]DALUPTOUulpxttqIhgclmZAQYZNMZKqogjNashoba Valley Medical CenterComment on above:Result Comment: <150 ng/ml CUTOFFPerformed By: #### PT #### Testing performed at [address] [address]AQMHSUDHBtpljpdsFntwhxBYCRFDKADjhjd [facility] HospitalComment on above:Result Comment: 1.0 ng/mL CUTOFF *Unconfirmed Screening Result* Unconfirmed screening results are to be used only for medical treatment purposes. This test has not been approved by the FDA. Performed By: #### PT #### Testing performed at [address], [place] [address]KWZYDCDEO METABOLITENegativeNormalNEGInspira Medical Center WoodburyComment on above:Result Comment: <100 ng/ml CUTOFFPerformed By: #### PT #### Testing performed at [address] [place] [address]PIIPMUYBZVIHSSSTaykcfmwDzttrmSVPDGINYLlgcs [facility] Comment on above:Result Comment: <500 ng/ml CUTOFFPerformed By: #### PT #### Testing performed at [address] [address]JBATFCGKoplgilmPlvxlnVPSEAMMMOpdpg [facility] HospitalComment on above:Result Comment: <300 ng/ml CUTOFFPerformed By: #### PT #### Testing performed at [address] [place] [address]EBQRFLKBNPnnczgmnDgiqdcNNNAGPTINmsas [facility] HospitalComment on above:Result Comment: <100 ng/ml CUTOFFPerformed By: #### PT #### Testing performed at [address] [place] [address]MSCZUVKWX ANTIDEPRESSANTSNegativeNormalNEGInspira Medical Center WoodburyComment on above:Result Comment: <1000 ng/ml CUTOFFPerformed By: #### PT #### Testing performed at [address], [place] [address]ZBHWBSTYNC DRUG SCREEN, URINEon 75-60-0022Qqntfjmrqgau Screen Ql (U)NegativeNEGATIVE NG/MLAvita Health SystemComment on above:<500 ng/ml CUTOFFBarbiturates Screen Ql (U)NegativeNEGATIVE NG/MLAvita Health SystemComment on above:<200 ng/ml CUTOFFBenzodiazepinesPositiveAbnormalNEGATIVE NG/MLAvita Health SystemComment on above:<200 ng/ml CUTOFF *Unconfirmed Screening Result* Unconfirmed screening results are to be used only for medical treatment purposes. BuprenorphineNegativeNEGATIVE NG/MLMercy Regional Medical CenterInnovis Labs SystemComment on above:<10 ng/ml CUTOFFCannabinoids Screen Ql (U)PositiveAbnormalNEGATIVE NG/MLMercy Regional Medical Centerta Sift Co[employer] SystemComment on above:<50 ng/ml CUTOFF *Unconfirmed Screening Result* Unconfirmed screening results are to be used only for medical treatment purposes. CocaineNegativeNEGATIVE NG/MLMercy Regional Medical Centerta S[employer] Co. SystemComment on above:<150 ng/ml CUTOFFFentanylNegativeNEGATIVE NG/MLMercy Regional Medical Centerta [employer] SystemComment on above:1.0 ng/mL CUTOFF *Unconfirmed Screening Result* Unconfirmed screening results are to be used only for medical treatment purposes. This test has not been approved by the FDA. Interpretation and review of laboratory resultsAbnoMcCullough-Hyde Memorial Hospital Methadone+Metabolite Screen Ql (U)NegativeNEGATIVE NG/MLMercy Regional Medical CenterInnovis Labs System Comment on above:<100 ng/ml CUTOFFMethamphetamine Ql (U)NegativeNEGATIVE NG/ML [facility] CenterInnovis Labs SystemComment on above:<500 ng/ml CUTOFFOpiates Ql (U)Negative NEGATIVE NG/MLMercy Regional Medical CenterInnovis Labs SystemComment on above:<300 ng/ml CUTOFFOxycodone ConfirmationNegativeNEGATIVE NG/MLMercy Regional Medical CenterInnovis Labs SystemComment on above:<100 ng/ml CUTOFFTricyclic Antidepressants, UrineNegativeNEGATIVE NG/MLMercy Regional Medical CenterInnovis Labs System Comment on above:<1000 ng/ml CUTOFFMercy Regional Medical CenterInnovis Labs [facility]borCMP Standardon 03-08-2025 eGFR Non AA>60Invalid Interpretation [facility] HospitalComment on above: Performed By: #### [id number], [id number], 7380177, 8012871, 7425785, 9292147741, 0827373 #### [facility] (DEFAULT) [address] [place] [address] 10993bLNN AA>60Invalid Interpretation [facility] Comment on above:Performed By: #### 2575513, [id number], 6301161, 1978668, 3224507, [id number], 1081020 #### [facility] (DEFAULT) [address] [place] [address] 75826Jlwzezg [Mass/Vol]3.6 g/dLNormal3.5-5.0[facility] Comment on above:Performed By: #### 6832109, [id number], 9012574, 6041782, 2440211, 2008016638, 9781980 #### [facility] (DEFAULT) [address] [place] [address] 16056Jhx Phos92 IU/WOfvb68-16Dbfyfwft HospitalComment on above: Performed By: #### 2224499, [id number], 9598417, 6361549, 9444888, 6277917291, 6037173 #### [facility] (DEFAULT) [address] [place] [address] 57682QET [Catalytic activity/Vol]13.0 U/LLow14.0-54.0[facility] Health CenterComment on above:Performed By: #### 0634281, [id number], 3703064, 2491407, 7127239, 8819969603, 3032276 #### [facility] (DEFAULT) [address] [place] [address] 98482YVI [Catalytic activity/Vol]18 U/RMlmwze93-47Kvwuxgzp HospitalComment on above:Performed By: #### 7411492, [id number], 6544949, 7953476, 6026623, 3706998863, 7317191 #### [facility] (DEFAULT) [address] [place] [address] 12287Fnev Total0.8 mg/dLNormal0.3-1.2Mselect medical [facility] rehabilitation hospital HospitalComment on above:Performed By: #### 2777476, 0896021157, 4369019, 5242035, 1899761, 6629569335, 8735464 #### [facility] (DEFAULT) [address] [place] [address] 00589Gveybnw [Mass/Vol]9.1 mg/dLNormal8.9-10.3Mselect medical [facility] rehabilitation hospital Hospital Comment on above:Performed By: #### 8353683, 7858723152, 2205836, 0905455, 6584879, 1430591239, 4282107 #### [facility] (DEFAULT) [address] [place] [address] 81549Kmyabuqe [Moles/Vol]102 mmol/PKtlkzn714-899Edurhohm HospitalComment on above:Performed By: #### 3389681, [id number], 4283860, 1215843, 0896363, 5959594472, 5738379 #### [facility] (DEFAULT) [address] [place] [address] 74864RN6 [Moles/Vol]26 mmol/PItfqak55-18Bkegsavo Hospital Comment on above:Performed By: #### 7672418, [id number], 9066096, 3117351, 0820483, 5563045808, 1409506 #### [facility] (DEFAULT) [address] [place] [address] 85183Vxjrhkatjk [Mass/Vol]0.63 mg/dLNormal0.60-1.30[facility] HospitalComment on above:Performed By: #### 5251342, 4448305121, 0970190, 2358704, 0579695, 8410999259, 3095040 #### [facility] (DEFAULT) [address] [place] [address] 58644Jsawpot [Mass/Vol]76.0 mg/yULjqnpg37.0-118.0[facility] HospitalComment on above:Performed By: #### 6283787, 7451870157, 4389846, 2956439, 3683830, 6961379082, 3754823 #### [facility] (DEFAULT) [address] [place] [address] 79370Mszthduxh [Moles/Vol]3.7 mmol/LNormal3.6-5.1Mselect medical trihealth rehabilitation hospital HospitalComment on above:Performed By: #### 8047411, 4876941659, 8496389, 9854173, 9868728, 7356030543, 9640366 #### [facility] (DEFAULT) [address] [place] [address] 73059Cbnufcl [Mass/Vol]6.6 g/dLNormal6.5-8.1Mselect [facility] Hospital Comment on above:Performed By: #### 8727415, 6536128011, 3601342, 1505413, 8768246, 9468325330, 6068181 #### [facility] (DEFAULT) [address] [place] [address] 94942Uytwie [Moles/Vol]134.0 mmol/IDuz999.0-144.0[facility] HospitalComment on above:Performed By: #### 6852367, 0357643814, 3369558, 5738991, 4239229, 6130737582, 4164475 #### [facility] (DEFAULT) [address] [place] [address] 70270Gzmu nitrogen [Mass/Vol]10 mg/dLNormal8-26[facility] HospitalComment on above:Performed By: #### 1186174, 0969935302, 1765705, 7434351, 7931700, 1152900419, 7574455 #### [facility] (DEFAULT) [address] [place] [address] 30046Dskkgct/Globulin [Mass ratio]1.2 {ratio}Low1.4-2.6Magrpomerene hospital HospitalComment on above:Performed By: #### 4361950, 1098488468, 6152429, 0841066, 7064203, 3677040625, 2432694 #### [facility] (DEFAULT) [address] [place] [address] 31980Aasvy gap [Moles/Vol]9.7 mmol/LNormal5.0-19.0[facility] HospitalComment on above:Performed By: #### 3894188, 9450193671, 7971438, 9782650, 7182508, 0329227774, 5101434 #### [facility] (DEFAULT) [address] [place] [address] 76773Qqodlrhm (S) [Mass/Vol]3.0 g/dLNormal1.5-4.3Magrpomerene hospital HospitalComment on above:Performed By: #### 2621004, 3942315597, 0588912, 4706102, 4183465, 2831486933, 8241150 #### [facility] (DEFAULT) [address] [place] [address] 62196Fhzutyfsfk592 mOsm/LInvalid Interpretation CodeSelect Medical Specialty Hospital [facility] HospitalComment on above:Performed By: #### 7722761, 9191806752, 6682180, 8569262, 5532114, 3897860336, 2721651 #### [facility] (DEFAULT) [address] [place] [address] 65108Fiig nitrogen/Creatinine [Mass ratio]15.8 mg/mgNormal 4.6-16.2Mselect medical [facility] rehabilitation hospital HospitalComment on above:Performed By: #### 2429327, 8266414551, 1892917, 0886439, 3377616, 7541619759, 6237368 #### [facility] (DEFAULT) [address] [place] [address] 90464KWSys 27-20-3755Mmkdm glutamyl transferase [Catalytic activity/Vol]35.0 U/LNormal7.0-50.0[facility] HospitalComment on above:Performed By: #### 9492739, 0688409794, 2154250, 0952589, 5067508, 1791975473, 4787547 #### [facility] (DEFAULT) [address] [place] [address] 08725Qqkk Levelon 12-80-2211Tore [Mass/Vol]47.0 ug/dLNormal 28.0-170.0[facility] HospitalComment on above:Performed By: #### 9089688, 5861715242, 3860061, 3449130, 2292857, 2663398177, 1238052 #### [facility] (DEFAULT) [address] [place] [address] 35788WQZaz 93-79-5018YMI171.0 IU/FFlvyem60.0-192.0[facility] HospitalComment on above:Performed By: #### 6636054, 3087395328, 2193233, 2385197, 5294191, 9636343581, 7507159 #### [facility] (DEFAULT) [address] [place] [address] 61879Pobjy Panel Standardon 53-31-5787Itlldowufng [Mass/Vol] 180.0 mg/kBGwyqpw74.0-200.0[facility] HospitalComment on above:Performed By: #### 8652766, 8268022265, 6595368, 9363432, 1745586, 6254489931, 7114047 #### [facility] (DEFAULT) [address] [place] [address] 31585Anhycryjrnj in HDL [Mass/Vol]54 mg/kJYsdxmx74-05Jjznqhfk HospitalComment on above:Performed By: #### 4138709, 9667622348, 5134207, 7036916, 1736228, 6352523245, 0247719 #### [facility] (DEFAULT) [address] [place] [address] 52493Nweonqvqnyao [Mass/Vol]137.0 mg/dLNormal0.0-150.0[facility] HospitalComment on above:Performed By: #### 7679495, 0842584578, 4316669, 7407874, 2698833, 4907837515, 8209025 #### [facility] (DEFAULT) [address] [place] [address] 27774Eaxtmgixesv in LDL [Mass/Vol]98 mg/dLNormal1-100[facility] HospitalComment on above:Performed By: #### 8321739, 2021675626, 3458209, 7654553, 7219766, 3615173310, 4983773 #### [facility] (DEFAULT) [address] [place] [address] 76324Scdqwnddkgk.total/Cholesterol in HDL [Mass ratio]3.3 {ratio}Normal0.0-4.5[facility] HospitalComment on above:Performed By: #### 2012518, 7909488536, 1865487, 0813465, 9160301, 0395206662, 7198333 #### [facility] (DEFAULT) [address] [place] [address] 22035DTCK.27 mg/dLNormal5-40[facility] HospitalComment on above: Performed By: #### 4729055, 5736875055, 0695952, 7408402, 4217231, 9975791828, 1508812 #### [facility] (DEFAULT) [address] [place] [address] 97783Pbgdjj 93-61-3628Fvxmyxbwa [Mass/Vol]3.0 mg/dLNormal 2.5-4.6Magrpomerene hospital HospitalComment on above:Performed By: #### 7588183, 6949218095, 8986932, 6245204, 7087597, 9551097708, 2395731 #### [facility] (DEFAULT) [address] [place] [address] 90204Rxce Acidon 90-80-1411Ezcwa [Mass/Vol]4.8 mg/dLNormal 2.6-8.0[facility] HospitalComment on above:Performed By: #### 5311653, 8439705816, 6457096, 0752168, 0821192, 3376039180, 0676540 #### [facility] (DEFAULT) [address] [place] [address] 73596AXLXUOHYTC A1Con 54-42-3072Tdsfcpf [Mass/Vol]111 mg/dL NormalMatheny Medical And Educational CenterComment on above:Performed By: #### PT #### Testing performed at [address] [address]UcZ5l (Bld) [Mass fraction]5.5 %[address] Comment on above:Result Comment: NORMAL <5.7% PREDIABETES 5.7-6.4% DIABETES 6.5% OR HIGHERPerformed By: #### PT #### Testing performed at [address] [address]WOOI SCREENon 75-03-2304ZADL DNA NORAH+probe Ql (Unsp spec) NegativeNormalNEGInspira Medical Center WoodburyComment on above:Performed By: #### MRSAST #### Testing performed at [address] [address]XKILO AUREUS SCREENNegativeNormalNEGInspira Medical Center Woodbury Comment on above:Result Comment: TESTING PERFORMED BY PCRPerformed By: #### MRSAST #### Testing performed at [address] [place] [address]URCFRXSff 16-80-1972ZLM Coag (PPP) [Relative time]0.89 {INR} Normal0.85-1.10ASaint Peter's University HospitalComment on above:Result Comment: 2.0-3.0 THERAPEUTIC RANGE 2.5-3.5 MECHANICAL VALVE RANGEPerformed By: #### PT #### Testing performed at [address] [address]YB Coag (PPP) [Time]12.1 kKwfmmh91.8-14.4ASaint Peter's University Hospital Comment on above:Performed By: #### PT #### Testing performed at [address] [place] [address]LOTJC MACROSCOPICon 67-87-8767Kwczxcyzc Ql (U)NegativeNormal NEGATIVEMatheny Medical And Educational CenterComment on above:Performed By: #### UMAC #### Testing performed at [address] [address]Ejqrfpk (U)CLEARNormalCLEARMatheny Medical And Educational CenterComment on above:Performed By: #### UMAC #### Testing performed at [address], [place] [address]Sfjbk (U)YELLOWNormalYELLOWMatheny Medical And Educational CenterCommymichigan medical center clare on above:Performed By: #### UMAC #### Testing performed at [address] [place] [address]Iaggugb Ql (U)NegativeNormalNEGInspira Medical Center Woodbury Comment on above:Performed By: #### UMAC #### Testing performed at [address], [place] [address]iK (U)6.0 [pH]Normal5.0-7.0[facility] Medical And Educational CenterComment on above:Performed By: #### UMAC #### Testing performed at [address] [place] [address]PUXCC HEMOGLOBINNegativeNormalNEGInspira Medical Center Woodbury Comment on above:Performed By: #### UMAC #### Testing performed at [address] [place] [address]FNLLO KETONENegativeNormalNEGATIVEMatheny Medical And Educational CenterComment on above:Performed By: #### UMAC #### Testing performed at [address] [address]FJETN LEUKOTESTNegativeNormalNEGInspira Medical Center Woodbury Comment on above:Performed By: #### UMAC #### Testing performed at [address] [address]KJYVS NITRATESNegativeNonovant health clemmons medical centerNEGInspira Medical Center [facility]bury Comment on above:Performed By: #### UMAC #### Testing performed at [address] [address]AOATG SPEC GRAVITY<1.600Pcy0.010-1.025[facility] Comment on above:Performed By: #### UMAC #### Testing performed at [address] [address]WUNVL TOTAL PROTEINNegativeNoPresbyterian Santa Fe Medical Center Comment on above:Performed By: #### UMAC #### Testing performed at [address] [address]Emlecgozvnqy Qn (U)0.2 {Rabia'U}/dLNormal0.2-1.0Mat[facility] Medical And Educational CenterComment on above:Performed By: #### UMAC #### Testing performed at [address] [address]Zstn Management Office/Clinic Noteon 88-77-5896Jcwl Management Office/Clinic NoteChief Complaint bilateral knee pain [...] L2 laminectomy Comments Surgery: Dr. Burr in [place] Comments Other: HEP - none Recent testing: [...] tracy (more content not included)... NormalKettering Health DaytonPain Mgmt Tox Scnon 16-16-3826Sule Management Tox ScreenSee ReportNormalKettering Health DaytonComment on above:Order Comment: SENT 06/19/2024 14:12:59 EST GSResult Comment: Missing Attachment Chartable Reference Lab Reports Can be viewed in source system Performed By: #### CD:[id number] #### [address] [address]Psnq Management Office/Clinic Noteon 06-38-7283Gndg Management Office/Clinic NoteChief Complaint low back & [...] L2 laminectomy Comments Surgery: Dr. Burr in [place] Recent testing: No Loss of bladder/bowel: Denies [...] 4ml 0.25% Marcaine c (more content not included)...[facility] Pain Management Office/Clinic Noteon 71-61-9443Vcxj Management Office/Clinic NoteChief Complaint bilateral mid back [...] L2 laminectomy Comments Surgery: Dr. Burr in [place] Date Other: HEP Frequency Other: PRN Effective [...] medication interactions/contraindications and/or (more content not included)...Normal [facility] with Diffon 67-94-4040Knk. Basophil0.06 k/uL Normal0.00-0.20[facility] HospitalComment on above:Performed By: #### MG, URI, CDP, ADRIEN, CP #### [address] [place] [address] [employer]p Public Relations: Yonis Bower MD #### VELMA, VD25 #### [place] [address] [employer] Public Relations: Marciano March.Imm.Granulocyte<0.34Rvmuvo4.00-0.30[facility] HospitalComment on above:Performed By: #### MG, URI, CDP, ADRIEN, CP #### [address] [place] [address] [employer] Public Relations: Yonis Bower MD #### EID25 #### [place] [address] [employer] Public Relations: Marciano March.Neutrophil (Seg)3.97 k/uLNormal1.50-8.10 [facility] HospitalComment on above:Performed By: #### MG, URI, CDP, ADRIEN, CP #### [address] [place] [address] [employer] Public Relations: Yonis Bower MD #### EID25 #### [place] [address] [employer] Public Relations: Gato Baldwin MDBasophils/100 WBC (Bld)1 %Normal0-2MCleveland Clinic Avon HospitalComment on above:Performed By: #### MG, URI, CDP, ADRIEN, CP #### [address] [place] [address] [employer] Public Relations: Yonis Bower MD #### EID25 #### [place] [id number] Vp Public Relations: Gato Baldwin MDEosinophils (Bld) [#/Vol]0.12 10*3/uLNormal 0.00-0.44[facility] HospitalComment on above:Performed By: #### MG, URI, CDP, ADRIEN, CP #### [address] [place] [address] [employer] Public Relations: Yonis Bower MD #### GLYHGB, VD25 #### [place] [address] [employer] Public Relations: Gato Baldwin MDEosinophils/100 WBC (Bld)1 %Normal1-4[facility] HospitalComment on above:Performed By: #### MG, URI, CDP, ADRIEN, CP #### [address] [place] [address] [employer] Public Relations: Yonis Bower MD #### VELMA, VD25 #### [place] [address] Vp Public Relations: Gato Baldwin MDErythrocyte distribution width (RBC) [Ratio]13.5 %Flfxdv02.8-14.4[facility] HospitalComment on above:Performed By: #### MG, URI, CDP, ADRIEN, CP #### [address] [place] [address] [employer] Public Relations: Yonis Bower MD #### GLYHGDulce, VD25 #### [place] [address] [employer]p Public Relations: Gato Baldwin MDHematocrit (Bld) [Volume fraction]41.3 %Normal 36.3-47.1[facility] HospitalComment on above:Performed By: #### MG, URI, CDP, ADRIEN, CP #### [address] [place] [id number] [employer]p Public Relations: Yonis Bower MD #### GLYHGB, VD25 #### [address] [address] Vp Public Relations: Gato Baldwin MDHemoglobin (Bld) [Mass/Vol]12.9 g/dLNormal 11.9-15.1Mselect medical ohiohealth rehabilitation hospital - dubliny Windham HospitalComment on above:Performed By: #### MG, URI, CDP, ADRIEN, CP #### [address] [place] [id number] Vp Public Relations: Yonis Bower MD #### GLYHGDulce, VD25 #### [address] [address] [employer]p Public Relations: Gato Baldwin MDImmature granulocytes/100 WBC (Bld)0 %Normal0 [facility] HospitalComment on above:Performed By: #### MG, URI, CDP, ADRIEN, CP #### [address] [place] [address] [employer] Public Relations: Yonis Bower MD #### VELMA, VD25 #### [address] [address] Vp Public Relations: Gato Baldwin MDLymphocytes (Bld) [#/Vol]2.81 10*3/uLNormal 1.10-3.70[facility] HospitalComment on above:Performed By: #### MG, URI, CDP, ADRIEN, CP #### [address] [place], [place] 199[address] [employer]p Public Relations: Yonis Bower MD #### GLYHGB, VD25 #### [address] [address] [employer]p Public Relations: Gato Baldwin MDLymphocytes/100 WBC (Bld)34 %Jjadig46-38NianiHolmes County Joel Pomerene Memorial HospitalComment on above:Performed By: #### MG, URI, CDP, ADRIEN, CP #### [address] [place], [place] 159[address]83 [employer]p Public Relations: Yonis Bower MD #### GLYHGB, VD25 #### [address] [address] Vp Public Relations: SENIA March (RBC) [Entitic mass]31.4 nbWiygil32.2-33.5 [facility] HospitalComment on above:Performed By: #### MG, URI, CDP, ADRIEN, CP #### [address] [place], [place] 8528783 Vp Public Relations: Yonis Bower MD #### SUSANNAHB, VD25 #### [address] [address] Vp Public Relations: SENIA MarchC (RBC) [Mass/Vol]31.2 g/xERaklef55.4-34.8 [facility] HospitalComment on above:Performed By: #### MG, URI, CDP, ADRIEN, CP #### [address] [place], [place] 610[address] Vp Public Relations: Yonis Bower MD #### GLYHGB, VD25 #### [address] [address] Vp Public Relations: LUI March (RBC) [Entitic vol]100.5 aDIopnla52.6-102.9 [facility] HospitalComment on above:Performed By: #### MG, URI, CDP, ADRIEN, CP #### [address] [place], [place] 6[address]83 Vp Public Relations: Yonis Bower MD #### GLYHGB, VD25 #### [address] [address] Vp Public Relations: Gato Baldwin, MDMonocytes (Bld) [#/Vol]1.36 10*3/uLHigh0.10-1.20 [facility] HospitalCommymichigan medical center clare on above:Performed By: #### MG, URI, CDP, ADRIEN, CP #### [address] [place], [place] 417[address] Vp Public Relations: Yonis Bower MD #### GLYHGB, VD25 #### [address] [id number] Vp Public Relations: Gato Baldwin MDMonocytes/100 WBC (Bld)16 %High3-12[facility] HospitalComment on above:Performed By: #### MG, URI, CDP, ADRIEN, CP #### [address] [place] [address] Vp Public Relations: Yonis Bower MD #### GLYHANSAB, VD25 #### [address] [id number] Vp Public Relations: Gato Baldwin MDNeutrophil (Seg)48 %Cxppsc74-59MdnkmHolmes County Joel Pomerene Memorial HospitalComment on above:Performed By: #### MG, URI, CDP, ADRIEN, CP #### [address] [place], [place] 366[address] Vp Public Relations: Yonis Bower MD #### GLYHGB, VD25 #### [address] [address] Vp Public Relations: Gato Baldwin MDNRBC Automated0.0 per 100 WBCNormal0.0[facility] HospitalCommymichigan medical center clare on above:Performed By: #### MG, URI, CDP, ADRIEN, CP #### [address] [place] 4[address] Vp Public Relations: Yonis Bower MD #### GLYHGB, VD25 #### [address] [address] Vp Public Relations: Porter March mean volume (Bld) [Entitic vol]10.6 fL Normal8.1-13.5[facility] HospitalComment on above:Performed By: #### MG, URI, CDP, ADRIEN, CP #### [address] [place] [address] Vp Public Relations: Yonis Bower MD #### GLYHGB, VD25 #### [address] [address] Vp Public Relations: Earl March (Bld) [#/Vol]294 10*3/zCZasfdx088-522 [facility] HospitalComment on above:Performed By: #### MG, URI, CDP, ADRIEN, CP #### [address] [place] [address] Vp Public Relations: Yonis Bower MD #### GLYTREVOR, VD25 #### [place] [address] Vp Public Relations: MIRTA March (Bld) [#/Vol]4.11 10*6/uLNormal3.95-5.11 [facility] HospitalComment on above:Performed By: #### MG, URI, CDP, ADRIEN, CP #### [address] [place] [address] Vp Public Relations: Yonis Bower MD #### GLYHGB, VD25 #### [place] [address] Vp Public Relations: Gato Bladwin MDBC (Bld) [#/Vol]8.3 10*3/uLNormal3.5-11.3MCleveland Clinic Avon HospitalComment on above:Performed By: #### MG, URI, CDP, ADRIEN, CP #### [address] [place], [place] 2644[address] Vp Public Relations: Yonis Bower MD #### GLYHGB, VD25 #### [address] [address] Vp Public Relations: ELLIE Marchomp Metabolic Profon 92-30-6426Ftxbllr [Mass/Vol]3.8 g/dLNormal3.5-5.2MCleveland Clinic Avon HospitalComment on above:Performed By: #### MG, URI, CDP, ADRIEN, CP #### [address] [place] [address] Vp Public Relations: Yonis Bower MD #### GLYHGDulce, VD25 #### [address] [address] Vp Public Relations: Gato Baldwin MDAlbumin/Glob Ratio1.9Ikylfc6.0-2.5[facility] HospitalComment on above:Performed By: #### MG, URI, CDP, ADRIEN, CP #### [address] [place] [address] Vp Public Relations: Yonis Bower MD #### VELMA, VD25 #### [address] [address] Vp Public Relations: Sahara March Phos89 U/JBscyem73-157RpdxhHolmes County Joel Pomerene Memorial HospitalComment on above:Performed By: #### MG, URI, CDP, ADRIEN, CP #### [address] [place] [address] Vp Public Relations: Yonis Bower MD #### GLYHGB, VD25 #### [address] [address] Vp Public Relations: Gato Baldwin MDALT [Catalytic activity/Vol]15 U/LNormal5-33 [facility] HospitalCommymichigan medical center clare on above:Performed By: #### MG, URI, CDP, ADRIEN, CP #### [address] [place] [address] Vp Public Relations: Yonis Bower MD #### GLYHGB, VD25 #### [place] [address] [employer] Public Relations: Cosme March gap [Moles/Vol]9 mmol/LNormal9-17[facility]ome[facility] HospitalComment on above:Performed By: #### MG, URI, CDP, ADRIEN, CP #### [address] [place] [address] [employer] Public [employer]: Yonis Bower MD #### GLYTREVOR, VD25 #### [place] [address] [employer] Public [employer]: GERA March [Catalytic activity/Vol]17 U/LNormal<32[facility] HospitalComment on above:Performed By: #### MG, URI, CDP, ADRIEN, CP #### [address] [place] 25[address]83 [employer] Public Relations: Yonis Bower MD #### GLYTREVOR, VD25 #### [place] [address] [employer] Public [employer]: Gato Baldwin MDBilirubin [Mass/Vol]0.5 mg/dLNormal0.3-1.2MCleveland Clinic Avon HospitalComment on above:Performed By: #### MG, URI, CDP, ADRIEN, CP #### [address] [place] 2580083 [employer] Public Relations: Yonis Bower MD #### GLYHGB, VD25 #### [place] [id number] [employer] Public [employer]: Gato Madoff, MDBUN/CRE Piias06Tfxd5-91HroxvHolmes County Joel Pomerene Memorial Hospital Comment on above:Performed By: #### MG, URI, CDP, ADRIEN, CP #### [address] [place] [address] [employer] Public Relations: Yonis Bower MD #### VELMA, VD25 #### [place] [address] [employer] Public Relations: ELLIE Marchalcium [Mass/Vol]9.4 mg/dLNormal8.6-10.4[facility] HospitalComment on above:Performed By: #### MG, URI, CDP, ADRIEN, CP #### [address] [place] [address] [employer] Public Relations: Yonis Bower MD #### EID25 #### [place] [address] [employer] Public [employer]: ELLIE Marchhloride [Moles/Vol]102 mmol/CBcatil42-294XmkmaHolmes County Joel Pomerene Memorial HospitalComment on above:Performed By: #### MG, URI, CDP, ADRIEN, CP #### [address] [place] [address]55 ( [employer] Public Relations: Yonis Bower MD #### EID25 #### [place] [address] [employer] Public [employer]: ELLIE MarchO2 [Moles/Vol]29 mmol/PXojozg94-08AgxzfHolmes County Joel Pomerene Memorial HospitalComment on above:Performed By: #### MG, URI, CDP, ADRIEN, CP #### [address] [place] 2580083 [employer] Public Relations: Yonis Bower MD #### VELMA, VD25 #### [address] [id number] [employer] Public Relations: ELLIE Marchreatinine [Mass/Vol]0.7 mg/dLNormal0.5-0.9[facility] HospitalCommymichigan medical center clare on above:Performed By: #### MG, URI, CDP, ADRIEN, CP #### [address] [place], [place] 7[address]83 [employer] Public Relations: Yonis Bower MD #### VELMA, VD25 #### [place] [address] [place], [place] [id number] [employer] Public Relations: Gato Baldwin MDGFR/1.73 sq M.predicted among non-blacks MDRD (S/P/Bld) [Vol rate/Area]mL/min/{1.73_m2}Normal>60[facility] HospitalComment on above:Result Comment: These results are [...] MG, URI, CDP, ADRIEN, CP #### [address] [place] [address]83 [employer] Public Relations: Yonis Bower MD #### EID25 #### [facility] [employer] [facility]5 [place], [place] 1667808 Vp Public Relations: Gato Baldwin MDGlucose [Mass/Vol]79 mg/qNRbklyt70-32GtdloCleveland Clinic Avon HospitalComment on above:Performed By: #### MG, URI, CDP, ADRIEN, CP #### [address] [place] [address] [employer] Public Relations: Yonis Bower MD #### VELMA, VD25 #### [facility] [employer] [facility]0 [place] [address] [employer] Public Relations: SIRIA Marchotassium [Moles/Vol]4.3 mmol/LNormal3.7-5.3 [facility] HospitalComment on above:Performed By: #### MG, URI, CDP, ADRIEN, CP #### [address] [place] [address] [employer] Public Relations: Yonis Bower MD #### VELMA, VD25 #### [address] [address] Vp Public Relations: Gato Baldwin MDProtein [Mass/Vol]6.8 g/dLNormal6.4-8.3MCleveland Clinic Avon HospitalComment on above:Performed By: #### MG, URI, CDP, ADRIEN, CP #### [address] [place] [address] [employer] Public Relations: Yonis Bower MD #### VELMA, VD25 #### [place] [address] [employer] Public Relations: SYED Marchodium [Moles/Vol]140 mmol/EXhhlen216-555QrvzrHolmes County Joel Pomerene Memorial HospitalComment on above:Performed By: #### MG, URI, CDP, ADRIEN, CP #### [address] [place] 2580083 [employer] Public Relations: Yonis Bower MD #### GLYTREVOR, VD25 #### [address] [id number] [employer] Public Relations: Gato Baldwin MDUrea nitrogen [Mass/Vol]16 mg/dLNormal6-20[facility] HospitalComment on above:Performed By: #### MG, URI, CDP, DARIEN, CP #### [address] [place] 2580083 [employer] Public Relations: Yonis Bower MD #### GLYHGB, VD25 #### [address] [place] [address] [employer]p Public Relations: Gato aBldwin MDHemoglobin A1Con 90-68-7872Tuijiwz [Mass/Vol]111 mg/dLNormalSt. Francis Hospital on above:Result Comment: The ADA and AACC recommend providing the estimated average glucose result to permit better patient understanding of their HBA1c result.Performed By: #### MG, URI, CDP, ADRIEN, CP #### [address] [place], [place] 2963583 [employer] Public Relations: Yonis Bower MD #### GLYHGB, VD25 #### [facility] [employer] [address] [place] [address] [employer] Public Relations: Gato Baldwin MDHbA1c (Bld) [Mass fraction]5.5 %Normal4.0-6.0 [facility] HospitalComment on above:Performed By: #### MG, URI, CDP, ADRIEN, CP #### [address] [place] [address] [employer] Public Relations: Yonis Bower MD #### ESDRASHGDulce, VD25 #### [facility] [employer] [address] [place] [phone] [employer] Public Relations: Gato Baldwin MDLipid Profileon 39-26-7889Zezvddlwoqb [Mass/Vol] 168 mg/dLNormal<200[facility] on above:Result Comment: Cholesterol Guidelines: <200 Desirable 200-240 Borderline >240 UndesirablePerformed By: #### MG, URI, CDP, ADRIEN, CP #### [address] [place] [address] [employer] Public Relations: Yonis Bower MD #### GLYHGB, VD25 #### [address] [id number] [employer] Public Relations: Gato Madoff, MDCholesterol in HDL [Mass/Vol]53 mg/dLNormal>40 [facility] Hospitalment on above:Result Comment: HDL Guidelines: <40 Undesirable 40-59 Borderline >59 DesirablePerformed By: #### MG, URI, CDP, ADRIEN, CP #### [address] [place] [address] [employer] Public Relations: Yonis Bower MD #### VELMA VD25 #### [employer] [address] [place] [id number] [employer] Public Relations: ELLIE Marchholesterol in LDL [Mass/Vol]78 mg/dLNormal0-130 [facility] HospitalCommymichigan medical center clare on above:Result Comment: LDL Guidelines: <100 Desirable 100-129 Near to/above Desirable 130-159 Borderline >159 Undesirable Direct (measured) LDL and calculated LDL are not interchangeable tests.Performed By: #### MG, URI, CDP, ADRIEN, CP #### [address] [place] 25[address]83 [employer] Public Relations: Yonis Bower MD #### VELMA VD25 #### [facility] [address] [place] [phone] Vp Public Relations: Jessie Marchststella.total/Cholesterol in HDL [Mass ratio]3.2 {ratio}Normal<5[facility] HospitalComment on above:Performed By: #### MG, URI, CDP, ADRIEN, CP #### [address] [place] 2580083 [employer] Public Relations: Yonis Bower MD #### VELMA, VD25 #### [facility] [address] [place] [address] [phone] [employer] Public Relations: Gato Baldwin MDTriglyceride [Mass/Vol]186 mg/dLHigh<150Mer[facility] Windham HospitalComment on above:Result Comment: Triglyceride Guidelines: <150 Desirable 150-199 Borderline 200-499 High >499 Very high Based on AHA Guidelines for fasting triglyceride, March 2012.Performed By: #### MG, URI, CDP, ADRIEN, CP #### [address] [place] [address] [employer] Public Relations: Yonis Bower MD #### VELMA, VD25 #### [address] [phone] Vp Public Relations: Gato Baldwin MDMagnesiumon 33-59-1027Ciriqudnl [Mass/Vol]2.0 mg/dLNormal1.6-2.6Mer[facility] Windham HospitalComment on above:Performed By: #### MG, URI, CDP, ADRIEN, CP #### [address] [place] 2580083 Vp Public Relations: Yonis Bower MD #### VELMA, VD25 #### [place] [address] [employer] Public Relations: Gato Baldwin MDPhosphorus, Inorg.on 08-41-7231Emxiaialvo, Inorg.3.1 mg/dLNormal2.6-4.5MerStamford HospitalComment on above:Performed By: #### MG, URI, CDP, ADRIEN, CP #### [address] [place] [address] [employer] Public Relations: Yonis Bower MD #### VELMA, VD25 #### [facility] [employer] [address] [place] [address] Vp Public Relations: Gato Baldwin MDWAYS[facility] w/reflex to FT4on 65-45-7789Pmnpydt Stim. Horm.1.28 uIU/mLNormal0.30-5.00[facility] HospitalComment on above:Performed By: #### TSHX #### [address] [place] 2580083 Vp Public Relations: VERONICA Rodriguez w/Reflex Cultureon 73-10-4058Blbtdwfvr, SemiQt,UrNegativeNormalNEGMerMetroHealth Main Campus Medical Center HospitalComment on above:Performed By: #### UAX, UMICAO #### [facility] [address] [place], [place] 9[address]1483 Vp Public Relations: Mary Jane Rodriguez, UrineNegativeMercy Hospital Comment on above:Performed By: #### UAX, UMICAO #### [facility] [address] [place], [place] [phone] Vp Public Relations: ELLIE Rodriguezlarity (ClearNoalCLEARHolmes County Joel [facility] Hospital Comment on above:Performed By: #### UAX, UMICAO #### [address] [place], [place] 3329583 [employer]p Public Relations: ELLIE Rodriguezolor (U)YellowNormalYSelect Medical Specialty Hospital [facility] Comment on above:Performed By: #### UAX, UMICAO #### [address] [place], [place] 7489583 Vp Public Relations: Yonis Bower MDGlucose Ql (U)NegativeNormalNEGMerMetroHealth Main Campus Medical Center HospitalComment on above:Performed By: #### UAX, UMICAO #### [facility] [address] [place] [address] Dr[place], [place] [phone] Vp Public Relations: Yonis Bower MDKetones Ql (U)NegativeNormalNEGMerStamford HospitalComment on above:Performed By: #### UAX, UMICAO #### [facility] [address] [place] [address] [place] [address] Vp Public Relations: Yonis Bower MDLeukocyte esterase Test strip Ql (U)NegativeNormal NEGMerStamford HospitalComment on above:Performed By: #### UAX, UMICAO #### [facility] [address] [place] [address] [place] [address] Vp Public Relations: Yonis Bower MDNitrite,UrNegativeNormalNEGHolmes County Joel Pomerene [facility] Hospital Comment on above:Performed By: #### UAX, UMICAO #### [address] [place] [address] Vp Public Relations: SIRIA Rodriguez,Ur6.4Blmshq5.0-9.0[facility] HospitalComment on above:Performed By: #### UAX, UMICAO #### [address] [place] [address] Vp Public Relations: SIRIA Rodriguezrotein Ql (U)NegativeNormalNEGHolmes County Joel Pomerene Memorial HospitalComment on above:Performed By: #### BRAD RODRIGUEZ #### [facility] [address] [place] [address] Dr[place], [place] 0558583 [employer]p Public Relations: SYED Rodriguezpec. [place],Ur1.816Mqqnyu3.010-1.020[facility] HospitalComment on above:Performed By: #### BRAD RODRIGUEZ #### [address] [place], [place] 7928283 Vp Public Relations: Yonis Bower MDUrobilinogen,UrNormalNormal0.0-1.0[facility] HospitalComment on above:Performed By: #### BRAD RODRIGUEZ #### [facility] [address] [place] [address] Dr. [place], [place] 0261383 [employer] Public Relations: Yonis Bower MDUric Acidon 33-83-5283Krikd [Mass/Vol]4.4 mg/dL Normal2.4-5.7[facility] HospitalComment on above:Performed By: #### MG, URI, CDP, ADRIEN, CP #### [facility] [address] [place] [address] Dr. [place], [place] 0[address]1983 [employer] Public Relations: Yonis Bower MD #### GLYHGB, VD25 #### [facility] [address] [facility], [place] 5895508 Vp Public Relations: Gato Baldwin MDUrinalysis,Microon 50-69-6592WmhyjjafNLWLW AbnormalNONEMeHospital for Special CareComment on above:Performed By: #### UAX, UMICAO #### [facility] [address] [place] [address] Dr. [place], [place] 1616783 [employer] Public Relations: Yonis Bower MDEpithelial cells LM Ql (Urine sed)0 TO 7Fyctar1-04 [facility] HospitalComment on above:Performed By: #### UAX, UMICAO #### [facility] [address] [place] [address] Dr[place], [place] 7730183 Vp Public Relations: Blanca Rodriguez RBC'sNoneNormal0-2MC[facility] Hospital Comment on above:Performed By: #### UAX, UMICAO #### [address] [place] [address] Vp Public Relations: Blanca Rodriguez WBC's0 TO 7Nbdnwk1-5HgtttHolmes County Joel Pomerene Memorial Hospital Comment on above:Performed By: #### UAX, UMICAO #### [address] [place], [place] 6854383 Vp Public Relations: Yonis Bower MDVitamin D 25 OHon 13-95-3157Xzeaiol D 25 OH28.0 ng/mLLow>29.9[facility] HospitalComment on above:Result Comment: Reference Range: Vitamin D status Range Deficiency <20 ng/mL Mild Deficiency 20-30 ng/mL Sufficiency 30-100 ng/mL Toxicity >100 ng/mLPerformed By: #### MG, URI, CDP, ADRIEN, CP #### [facility] [address] [place] [address] [place] [address] [employer] Public Relations: Yonis Bower MD #### GLYHGB, VD25 #### [address] [place] [address] Vp Public Relations: ELLIE Marchomplete Blood Count with Auto Diffon 03-22-2022 ALVA#: 0.8Zfumhu0.0-0.1[facility] HospitalComment on above:Performed By: #### CBCAD #### [address] [address] Ph. [phone]/100 WBC (Bld)1 %Normal0-1[facility] Comment on above:Performed By: #### CBCAD #### [place] [address] Ph. [phone] (Bld) [#/Vol]0.2 10*3/uLNormal0.0-0.5[facility] HospitalComment on above:Performed By: #### CBCAD #### [address] [address] Ph. [phone]/100 WBC (Bld)3 %Normal0-5[facility] Comment on above:Performed By: #### CBCAD #### [address] [address] Ph. [phone] distribution width (RBC) [Ratio]13.6 %Normal 11.5-14.5[facility] HospitalComment on above:Performed By: #### CBCAD #### [address] [address] Ph. [phone] (Bld) [Volume fraction]38.7 %Zkysmm59.0-47.0[facility] HospitalComment on above:Performed By: #### CBCAD #### [address] [address] Ph. [phone] (Bld) [Mass/Vol]12.9 g/jTLcmyeu10.0-16.0WMagruder HospitalComment on above:Performed By: #### CBCAD #### [address] [address] Ph. [phone] (Bld) [#/Vol]1.4 10*3/uLNormal1.0-4.0WMagruder HospitalComment on above:Performed By: #### CBCAD #### [address] [address] Ph. [phone]/100 WBC (Bld)24 %Kjbkna44-40WglyzldMagruder HospitalComment on above:Performed By: #### CBCAD #### [address] [address] Ph. [phone] (RBC) [Entitic mass]31.9 ipEbezsr40.0-35.0WMagruder HospitalComment on above:Performed By: #### CBCAD #### [address] [address] Ph. [phone] (RBC) [Mass/Vol]33.3 g/bNTeiuqr25.0-36.0WMagruder HospitalComment on above:Performed By: #### CBCAD #### [address] [address] Ph. [phone] (RBC) [Entitic vol]96 nRUdopev05-526MduotiwMagruder HospitalComment on above:Performed By: #### CBCAD #### [address] [address] Ph. [phone] (Bld) [#/Vol]0.7 10*3/uLNormal0.3-1.0WMagruder HospitalComment on above:Performed By: #### CBCAD #### [place] [address] Ph. [phone]/100 WBC (Bld)11 %Normal1-15WMagruder Hospital Comment on above:Performed By: #### CBCAD #### [address] [address] Ph. [phone] (Bld) [#/Vol]3.8 10*3/uLNormal1.8-7.7WMagruder HospitalComment on above:Performed By: #### CBCAD #### [place] [address] Ph. [phone]/100 WBC (Bld)62 %Reunef88-46DewjdhnMagruder HospitalComment on above:Performed By: #### CBCAD #### [place] [address] Ph. [phone] mean volume (Bld) [Entitic vol]11.8 fLNormal9.4-12.3 [facility] HospitalComment on above:Performed By: #### CBCAD #### [address] [address] Ph. [phone] (Bld) [#/Vol]275 10*3/qXJyiyhs224-573JooodnmMagruder HospitalComment on above:Performed By: #### CBCAD #### [address] [address] Ph. [phone] (Bld) [#/Vol]4.05 10*6/uLLow4.20-5.40WMagruder HospitalComment on above:Performed By: #### CBCAD #### [address] [address] Ph. [phone] (Bld) [#/Vol]6.1 10*3/uLNormal3.7-11.0[facility] Memorial HospitalComment on above:Performed By: #### CBCAD #### [place] [address] Ph. [phone] Metabolic Panelon 54-62-1128Unmlnup [Mass/Vol]3.7 g/dLNormal3.5-5.0WMagruder HospitalComment on above:Performed By: #### VITD, FUW819, CMP, LIPD #### [place] [address] Ph. [phone] [Catalytic activity/Vol]92 U/PZvyjzm11-514CgdgndaMagruder HospitalComment on above:Performed By: #### VITD, VSO620, CMP, LIPD #### [place] [address] Ph. [phone] [Catalytic activity/Vol]14 U/LNormal0-35WMagruder HospitalComment on above:Performed By: #### VITD, HIX838, CMP, LIPD #### [place] [address] Ph. [phone] [Catalytic activity/Vol]22 U/MNuebsz97-96RsyahrvMagruder HospitalComment on above:Performed By: #### VITD, MRB380, CMP, LIPD #### [place] [address] Ph. [phone] [Mass/Vol]0.6 mg/dLNormal0.2-1.3WMagruder HospitalComment on above:Performed By: #### VITD, XVA893, CMP, LIPD #### [place] [address] Ph. [phone] [Mass/Vol]9.5 mg/dLNormal8.4-10.2WMagruder HospitalComment on above:Performed By: #### VITD, ZXP912, CMP, LIPD #### [place] [address] Ph. [phone] [Moles/Vol]106 mmol/TEczmyh22-627DjxgnaoPremier Health Miami Valley HospitalComment on above:Performed By: #### VITD, QDW406, CMP, LIPD #### [address] [address] Ph. [phone] [Moles/Vol]26 mmol/TRttzbr12-10VnvicvuMagruder Hospital Comment on above:Performed By: #### VITD, OVX070, CMP, LIPD #### [place] [address] Ph. [phone] [Mass/Vol]0.64 mg/dLNormal0.52-1.04[facility] HospitalComment on above:Performed By: #### VITD, ZJF927, CMP, LIPD #### [place] [address] Ph. [phone]/1.73 sq M.predicted among non-blacks MDRD (S/P/Bld) [Vol rate/Area]100 mL/min/{1.73_m2}Normal>60WMagruder HospitalComment on above:Result Comment: Stage 1 Kidney damage (e.g., protein in the urine) with normal GFR >=90\X0D0A\Stage 2 Kidney damage with mild decrease in GFR 60- 89\X0D0A\Stage 3a Moderate decrease in GFR 45-59\X0D0A\Stage 3b Moderate decrease in GFR 30-44\X0D0A\Stage 4 Severe reduction in GFR 15-29\X0D0A\Stage 5 Kidney failure <15Performed By: #### VITD, RPK245, CMP, LIPD #### [place] [address] Ph. [phone] [Mass/Vol]104 mg/qQVtqm20-954XriwkqoMagruder Hospital Comment on above:Performed By: #### VITD, CDL268, CMP, LIPD #### [place] [address] Ph. [phone] [Moles/Vol]3.9 mmol/LNormal3.6-5.0[facility] HospitalComment on above:Performed By: #### VITD, PIA479, CMP, LIPD #### [place] [address] Ph. [phone] [Mass/Vol]6.4 g/dLNormal6.3-8.2WMagruder Hospital Comment on above:Performed By: #### VITD, KJX605, CMP, LIPD #### [place] [address] Ph. [phone] [Moles/Vol]141 mmol/PQfnlin129-846KdqmlyqMagruder HospitalComment on above:Performed By: #### VITD, NKD306, CMP, LIPD #### [place] [address] Ph. [phone] nitrogen [Mass/Vol]7 mg/dLNormal7-17WMagruder HospitalComment on above:Performed By: #### VITD, XHE955, CMP, LIPD #### [place] [address] Ph. [phone] Panelon 42-00-4137Obtlgiypuaf [Mass/Vol]142 mg/dLNormal 100-200WMagruder HospitalComment on above:Order Comment: Is Patient Fasting?/# of Hours->6Result Comment: <200 mg/dL is recommended cholesterol level.Performed By: #### VITD, IDS328, CMP, LIPD #### [place] [address] Ph. [phone] in HDL [Mass/Vol]46 mg/dLLow>60WMagruder HospitalComment on above:Order Comment: Is Patient Fasting?/# of Hours->6 Performed By: #### VITD, XJA995, CMP, LIPD #### [place] [address] Ph. [phone] in LDL [Mass/Vol]68 mg/dEBgiulc72-474HnvgdwjPremier Health [facility] on above:Order Comment: Is Patient Fasting?/# of Hours->6Performed By: #### VITD, RGI993, CMP, LIPD #### [place] [address] Ph. [phone].total/Cholesterol in HDL [Mass ratio]3 {ratio}Normal 1-5[facility] on above:Order Comment: Is Patient Fasting?/# of Hours->6Performed By: #### VITD, AKL039, CMP, LIPD #### [place] [address] Ph. [phone] [Mass/Vol]140 mg/cVCcpkvh78-306RhxaslbPremier Health [facility] on above:Order Comment: Is Patient Fasting?/# of Hours->6 Performed By: #### VITD, TZE233, CMP, LIPD #### [place] [address] Ph. [phone] Reflex FT4on 73-65-6620SEN6.526 mIU/mLNormal0.470-4.680 [facility] on above:Performed By: #### VITD, WOC976, CMP, LIPD #### [place] [address] Ph. [phone] D, 25 Hydroxyon 97-70-0284WGOI48 ng/zWAmzeme64-732 [facility] on above:Result Comment: EXPECTED VALUES\X0D0A\X0D0A\DEFICIENT: <20 ng/mL\X0D0A\INSUFFICIENT: 20-<30 n g/mL\X0D0A\SUFFICIENT: 30-100 ng/mL\X0D0A\POTENTIAL TOXICITY: >100 ng/mL Performed By: #### VITD, [id number], CMP, LIPD #### [place] [address] Ph. [phone] Vital Signs Date TimeVital SignValuePerforming KewlgicnlTwddmfiq07-52-6699 09:08-0400Body kpoaak123.7 [facility] [employer] Work Phone: [phone] [place], [place] 6660910-28-2025 09:08-0400Body mass index (BMI) [Ratio]32.23 kg/q9Cqmimvbv [employer] Work Phone: [address] [place], [place] 0805510-28-2025 09:08-0400Body weight 96.16 kgSacritical access hospital Work[employer]ce[employer] Work Phone: [phone] [place], [place] 6660910-18-2025 04:00-0400Diastolic blood mm[Hg]Jigar Reynolds MD Work Phone: [phone]10-18-2025 04:00-0400Heart rate96 /Jose Reynolds MD Work Phone: [address] [place], [place] 9911010-18-2025 04:00-0400Respiratory rate19 /Jose Reynolds MD Work Phone: [phone] [place], [place] 2813710-18-2025 04:00-3106DfM1% (BldA) [Mass fraction]100 %Jigar Reynolds MD Work Phone: [phone] [place] [address] [employer] Cjuizb77-43-7142 04:00-0400Systolic blood xpwrptae574 mm[Hg]Jigar Reynolds MD Work Phone: [phone] [place], [place] 2813710-18-2025 00:23-0400Body height 172.7 cmJigar Reynolds MD Work Phone: [phone] [place], [place] 2813710-18-2025 00:20-0400Body oenaalgauyx51.01 [degF]Jigar Reynolds MD Work Phone: [facility]10-08-2025 18:00-0400Diastolic blood aniqlxql33 mm[Hg]Joaquín Baez MD Work Phone: [facility]10-08-2025 18:00-0400Heart rate75 /Bethany Baez MD Work Phone: [address] [place], [place] [address]80[address]10-08-2025 18:00-0400Systolic blood jenhmwkr920 mm[Hg]Joaquín Baez MD Work Phone: [address] [place], [place] [address]80[address]10-08-2025 17:30-9024AfI7% (BldA) [Mass fraction]96 %Joaquín Baez MD Work Phone: [address] [place], [place] [address]80[address]10-08-2025 12:45-0400Respiratory rate19 /Bethany Baez MD Work Phone: [address] [place], [place] [address]805510-08-2025 12:12-0400Body demomdwtayw69.5 [degF]Joaquín Baez MD Work Phone: [address] [place], [place] [id number] 07:02-0400Body height 170.2 cmSneto Baez MD Work Phone: [address] [place], [place] [id number] 07:02-0400Body mass index (BMI) [Ratio]34.46 kg/v0SldfzJoaquín Baez MD Work Phone: [address] [place], [place] [id number] 07:02-0400Body weight 99.79 kgJoaquín Baez MD Work Phone: [address] [place], [place] [id number] 08:31-0400Body height 170.2 cmDennis Furlong DO Work Phone: [facility]10-06-2025 08:31-0400Body mass index (BMI) [Ratio]34.07 kg/r1Qbivot Furlong DO Work Phone: [facility]10-06-2025 08:31-0400Body .59 [degF]Jimmie Joyalong DO Work Phone: [facility] [phone] 08:31-0400Body smaxrb84.7 kgDennis Mahnazlong DO Work Phone: [facility] [employer] [phone] 08:31-0400Diastolic blood adlhufqt11 mm[Hg]Jimmie Mahnazlong DO Work Phone: [facility] [employer] Hazwor88-36-0270 08:31-0400Heart rate 67 /Aquilinois Mahnazlong DO Work Phone: [facility] [employer] Awcmsy31-81-1168 08:31-0400 Respiratory rate20 /minDangeliais Mahnazlong DO Work Phone: [facility] [employer] Xpokmd66-54-4007 08:31-5668VrM2% (BldA) [Mass fraction]98 %Jimmie Joyalong DO Work Phone: [facility] [employer] Dpqrmi98-38-2858 08:31-0400Systolic blood mnivdfen052 mm[Hg]Jimmie Joaylong DO Work Phone: [facility] [employer] Dmkyky65-60-8911 16:19-0400Body wgqidt944.2 cmJimmie Joyalong DO Work Phone: [facility] Egcqej50-58-0822 16:19-0400Body mass index (BMI) [Ratio]34.45 kg/h6Vsnrrh Furlong DO Work Phone: [facility] [employer] Wtxmvw09-85-5708 16:19-0400Body ajtacmdcuqe96.11 [degF]Jimmie Joyalong DO Work Phone: [facility] Vgmkpk36-76-2065 16:19-0400Body kqopxl23.79 kgDenalfredo Joyalong DO Work Phone: [facility] Htunrr89-93-5422 16:19-0400Diastolic blood prpaopba25 mm[Hg]Jimmie Joyalong DO Work Phone: [facility] [employer] Ipcywr65-06-4818 16:19-0400Heart rate 76 /Boris Joyalong DO Work Phone: [facility] [employer] Fimvry99-94-1441 16:19-0400 Respiratory rate18 /minDangeliais Mahnazlong DO Work Phone: [facility] [employer] Czeynm91-15-9962 16:19-0432PyP1% (BldA) [Mass fraction]97 %Jimmie Montgomeryng DO Work Phone: [facility] [employer] Nceidg59-27-0272 16:19-0400Systolic blood xzdlteme018 mm[Hg]Jimmie Montgomeryng DO Work Phone: [facility] [employer] Sybxmk04-30-7586 13:59-0400Body oevart772.7 Ivanna Baez MD Work Phone: [facility] [employer] Mfwhnm62-73-2529 13:59-0400Body mass index (BMI) [Ratio]32.36 kg/k3SkujbJoaquín Baez MD Work Phone: [facility] [employer] Slyafl66-45-7395 13:59-0400Body weight 96.53 kgJoaquín Baez MD Work Phone: [facility]06-05-2025 16:19-0400Body height 170.2 cmJimmie Montgomeryng DO Work Phone: [facility] [employer] Ikwzho65-74-5820 16:19-0400Body mass index (BMI) [Ratio]34.45 kg/e5LbbakrJimmie Joyalong DO Work Phone: [facility] [employer] Drweqy52-10-3496 16:19-0400Body zbgmxujsduh23.9 [degF]Jimmie Montgomeryng DO Work Phone: [facility] [employer] Vmqfky03-74-8838 16:19-0400Body odyxma39.79 kgJimmie Montgomeryng DO Work Phone: [facility] [employer] Kpcily70-53-0122 16:19-0400Diastolic blood bpqexddc11 mm[Hg]Jimmie Joyalong DO Work Phone: [facility] Lejsjs66-89-0331 16:19-0400Heart rate 85 /Aquilinois Furlong DO Work Phone: [facility]06-05-2025 16:19-0400 Respiratory rate18 /minDennis Furlong DO Work Phone: [facility]06-05-2025 16:19-5278IuY7% (BldA) [Mass fraction]97 %Jimmie Joyalong DO Work Phone: [facility] [employer] Gezbiu88-48-4038 16:19-0400Systolic blood utzuqepu213 mm[Hg]Jimmie Joyalong DO Work Phone: [facility] [employer] Gqkotq12-79-7014 16:32-0500Body ecjbdt225.2 cmDenalfredo Joyalong DO Work Phone: [facility] [employer] Otbcaf60-64-6354 16:32-0500Body mass index (BMI) [Ratio]35.44 kg/o9Tsibxh Furlong DO Work Phone: [facility] [employer] Sswaoc44-63-3491 16:32-0500Body miubdxgsyxz25.2 [degF]Jimmie Joyalong DO Work Phone: [facility] [employer] Lpholh88-23-7124 16:32-0500Body butmlk154.65 kgDenalfredo Joyalong DO Work Phone: [facility] [employer] Iwktlz35-53-7271 16:32-0500Diastolic blood tymzreli75 mm[Hg]Jimmie Joyalong DO Work Phone: [facility] [employer] Vfnffi31-72-9214 16:32-0500Heart rate 58 /Boris Joyalong DO Work Phone: [facility] [employer] Xdkykm34-77-0207 16:32-0500 Respiratory rate18 /minDangeliais Mahnazlong DO Work Phone: [facility]03-03-2025 16:32-7377ZcL6% (BldA) [Mass fraction]96 %Jimmie Garcia DO Work Phone: [facility] [employer] Xzslia54-38-6097 16:32-0500Systolic blood mm[Hg]Jimmie Garcia DO Work Phone: [facility] [employer] Qvxyni42-68-2129 15:53-0400Body mesnsv823.2 cmJimmie Montgomeryng DO Work Phone: [facility] [employer] Mwjgqe63-76-2713 15:53-0400Body mass index (BMI) [Ratio]33.14 kg/s4Zbofehalfredo Garcia DO Work Phone: [facility] [employer] Wihawc48-71-7775 15:53-0400Body yadagvkthvf62.01 [degF]Jimmie Garcia DO Work Phone: [facility] [employer] Yrprvf38-04-0181 15:53-0400Body iamfhw11.98 kgJimmie Garcia DO Work Phone: [facility] [employer] Gwgott41-19-8415 15:53-0400Diastolic blood mm[Hg]Jimmie Garcia DO Work Phone: [facility] [employer] Vtrthc83-53-8420 15:53-0400Heart rate 68 /minDennis Radha DO Work Phone: [facility] [employer] Rvymre87-02-2703 15:53-6108AdM2% (BldA) [Mass fraction]97 %Jimmie Garcia DO Work Phone: [facility] [employer] Xlesuu42-14-8424 15:53-0400Systolic blood gnifaigm212 mm[Hg]Jimmie Garcia DO Work Phone: [facility] [employer] Zlejpe73-86-0590 18:41-0400Body veodfpqvbzx04.81 [degF][facility]09-15-2024 18:41-0400Diastolic blood yjyerxls91 mm[Hg][facility] TUBJHS30-68-2233 18:41-0400Heart rate85 /[facility]-15-2024 18:41-0400Respiratory rate18 /minB[facility]09-15-2024 18:41-7805YgF9% (BldA) [Mass fraction]98 %[facility] WZJCUV37-71-3335 18:41-0400Systolic blood zgubwoam901 mm[Hg][facility]04-16-2024 15:12-0400Body exyqez008.1 cmJimmie JoyaCerana Beveragesng DO Work Phone: [facility] [employer] Gikmtg69-30-0172 15:12-0400Body mass index (BMI) [Ratio]39.59 kg/g0XpkkfxJimmie Joyalong DO Work Phone: [facility] [employer] Qtabng48-62-1409 15:12-0400Body iqdoascfzad46.81 [degF]Jimmie Joyalong DO Work Phone: [facility] [employer] Nuixzj85-13-2406 15:12-0400Body vucnno481.89 kgJimmie Joyalong DO Work Phone: [facility] [employer] Xwuxjj12-05-6954 15:12-0400Diastolic blood xjwtrxno54 mm[Hg]Jimmie Joyalong DO Work Phone: [facility] [employer] Pmfonk27-75-0428 15:12-0400Heart rate 62 /Boris Joyalong DO Work Phone: [facility] [employer] Pfzjov16-71-5114 15:12-0400 Respiratory rate18 /minDangeliais Mahnazlong DO Work Phone: [facility] [employer] Bnrpwz84-39-0658 15:12-5795KkR2% (BldA) [Mass fraction]95 %Jimmie Joyalong DO Work Phone: [facility] [employer] Spjqzs80-72-1221 15:12-0400Systolic blood ysmltlag622 mm[Hg]Jimmie Joyalong DO Work Phone: [facility] Encounters Encounter DateEncounter TypeCare ProviderFacilityStart: 05-03-2025 End: 14-70-8988LdixotCymh Cooper CMAProMedidc Physicians Internal Medicine - Family MedicineStart: 04-27-2025 End: 43-31-7724Sxnalc follow up visit related to original Iris Martínez Work Phone: [facility] OrthopedicsComment on above:History of total knee arthroplasty, left (Primary Dx); Acute postoperative pain of kneeStart: 04-27-2025 End: 48-97-4807kpjvfhveqaNOYNFENYSaint Francis Medical Center HospitalComment on above:AnxietyStart: 04-27-2025 End: 20-93-3241Xttoelvocl hospital visit by Jordan Martínez Work Phone: [facility] RadiologyStart: 04-26-2025 End: 91-61-1218Jvpkoh OnlyJimmie Garcia DO Work Phone: [facility] - Family [facility] HospitalComment on above:Chronic bilateral low back pain without sciatica; AnxietyStart: 04-17-2025 End: 66-36-0229Izyhfwvfe department patient visitJigar Reynolds MD Work Phone: [facility] Emergency DepartmentStart: 04-12-2025 End: 47-31-7318Rtefip OnlyJimmie Montgomeryng DO Work Phone: [facility] MedicineStart: 04-07-2025 End: 26-63-7980gtetxzulzbTSVDPC FURLONGIn[facility] HospitalStart: 04-07-2025 End: 06-24-4702Aiowmeudtx hospital visit by Amairani Baez MD Work Phone: [facility] PeriopComment on above:Osteoarthritis of left knee, unspecified osteoarthritis typeStart: 04-05-2025 End: 26-72-4962Nheucm outpatient visit 15 minutesJimmie Garcia DO Work Phone: [facility] Medicine - Family MedicineComment on above:Pre-op evaluation (Primary Dx); Primary osteoarthritis of left knee; Mild intermittent asthma, unspecified whether complicated; Class 1 obesity due to excess calories with serious comorbidity and body mass index (BMI) of 34.0 to 34.9 in adultStart: 04-05-2025 End: 77-64-1739Kloxmsxidsihq examination doneJimmie Garcia DO Work Phone: [facility] Work Phone: Start: 03-31-2025 End: 85-90-5478gezabpwgpnFrus ProviderFacility:[facility] Hospitaltart: 03-25-2025 End: 16-13-4353Bisrav OnlyJimmie Garcia DO Work Phone: [facility] Internal Medicine [facility] MedicineStart: 03-22-2025 End: 95-49-9247Xlgqsi OnlyJimmie Garcia DO Work Phone: [facility] Internal Medicine [facility] MedicineStart: 03-19-2025 End: 81-72-9389Jnyrkc OnlyJimmie Garcia DO Work Phone: [facility] Internal Medicine [facility] MedicineStart: 03-15-2025 End: 17-74-6240Axqanik encounter statusJimmie Garcia DO Work Phone: [facility] Work Phone: Start: 03-15-2025 End: 70-18-1538Ujsjrnuf preventive med est patient 40-64yrsDennis Rochelle Garcia DO Work Phone: [facility] Internal Medicine [facility] MidtownComment on above:Well adult exam (Primary Dx); Class 1 obesity due to excess calories with serious comorbidity and body mass index (BMI) of 34.0 to 34.9 in adult; Generalized anxiety disorder; Encounter for screening mammogram for malignant neoplasm of breast; Screen for colon cancer; Need for vaccination; Need for shingles vaccine; Other acute recurrent sinusitis; Chronic bilateral low back pain without sciaticaStart: 03-08-2025 End: 49-26-0793mprwmokawmQlla ProviderFacility:[facility] HospitalStart: 03-08-2025 End: 75-53-6783sriykxhtjyVaib ProviderFacility:[facility] HospitalStart: 26-69-3402xaklniidfzPFBYKPShriners Hospital for Children HospitalStart: 02-25-2025 Encounter for other preprocedural examinationSJeff[facility] Start: 02-09-2025 End: 76-74-6475CpzmzjJmqdji Rochelle Joyarominang DO Work Phone: [facility] Hospitaltart: 02-03-2025 End: 72-84-4580Wafbad outpatient new 60 Loi Baez MD Work Phone: [facility] OrthopedicsComment on above:Left knee pain, unspecified chronicity (Primary Dx)Start: 94-94-5823jujwiarugnWQALEBOakdale Community Hospitaltart: 02-03-2025 End: 15-56-6244Pgictownjd hospital visit by Amairani Baez MD Work Phone: [facility] RadiologyStart: 12-25-2024 End: 09-56-6249Davlfp OnlyJimmie Rochelle Joyarominang DO Work Phone: [facility] Internal Medicine - Family MedicineComment on above:Primary osteoarthritis of left knee (Primary Dx)Start: 12-15-2024 End: 95-46-7149Ooinpq OnlyJimmie Rochelle Joyarominang DO Work Phone: [facility] Medicine - Family MedicineComment on above:Chronic bilateral low back pain without sciatica (Primary Dx)Start: 12-03-2024 End: 27-44-3591Jpjewa outpatient visit 25 minutesJimmie Rochelle Joyarominang DO Work Phone: [facility] Internal Medicine - Family MedicineComment on above:Class 1 obesity due to excess calories with serious comorbidity and body mass index (BMI) of 34.0 to 34.9 in adult (Primary Dx); Tremor; Recurrent major depressive disorder, remission status unspecified; Chronic bilateral low back pain without sciatica; Primary osteoarthritis of left knee; AnxietyStart: 11-19-2024 End: 35-25-3724pelyykpxnnHyhtjnValerie Hampton MDFacility:[facility] Hospitaltart: 11-14-2024 End: 09-23-5979XndpwrKtocwu G Furlong DO Work Phone: [facility] MedicineStart: 11-11-2024 End: 28-43-9426Apzjov OnlyDennis G Furlong DO Work Phone: [facility] MedicineStart: 11-05-2024 End: 36-47-6047MmpzytYxhvnt G Furlong DO Work Phone: [facility] MedicineStart: 10-13-2024 End: 48-66-9661Zbvjfv OnlyDennis G Furlong DO Work Phone: [facility] Internal [facility] - [facility] Medical CenterComment on above:Class 1 obesity due to excess calories with serious comorbidity and body mass index (BMI) of 33.0 to 33.9 in adult (Primary Dx) Start: 23-94-7651hobocawjzwPvyhrn Ann Morris AIRPLANE DISPATCH CLERK-CNPFacility:[facility] [place]Start: 09-24-2024 End: 02-13-7712keuocdljmxDtpqee Ann Morris APRN-CNPFacility:[facility] [place]Start: 09-01-2024 End: 68-20-7328Xotlwb OnlyDennis G Furlong DO Work Phone: [facility] Internal [facility] MedicineStart: 08-31-2024 End: 41-21-9791Cuzyuq outpatient visit 15 minutesDennis G Furlong DO Work Phone: [facility] Internal [facility] - [facility] Medical CenterComment on above:Class 1 obesity due to excess calories with serious comorbidity and body mass index (BMI) of 33.0 to 33.9 in adult (Primary Dx) Start: 08-16-2024 End: 49-72-7008GercjpQlqutl G Furlong DO Work Phone: [facility] Medicine - Family MedicineStart: 06-18-2024 End: 10-01-3476evnpgmpjuqKxeewv W Secor MDFacility:[facility] Start: 06-18-2024 End: 56-78-4218gsriveglnlOzqsca W Secor MDFacility:[facility] [place] Start: 05-12-2024 End: 07-72-0921WpmybdAatxn Uvaldo MANDYProMedica Physicians Internal Medicine - Family MedicineStart: 04-07-2024 End: 91-30-9654Ahgiiq Dixie Garcia DO Work Phone: [facility] - Family MedicineStart: 03-25-2024 End: 81-75-6458Xgnbuc Dixie Garcia DO Work Phone: [facility] - Family MedicineStart: 03-24-2024 End: 89-89-1623Zeahkw Dixie Garcia DO Work Phone: [facility] - Family MedicineStart: 03-23-2024 End: 84-31-8122Enrpvcaoi encounterVanessa Garcia [facility] HOSPITALProMedica [facility] Internal Medicine - Family MedicineStart: 03-19-2024 End: 71-47-5077Mybspt outpatient visit 25 Bruno Garcia DO Work Phone: [facility] Medicine - Family MedicineComment on above:Nausea and vomiting, unspecified vomiting type (Primary Dx); Hypokalemia; Other fatigue; Class 1 obesity due to excess calories with serious comorbidity and body mass index (BMI) of 33.0 to 33.9 in adultStart: 03-15-2024 End: 91-67-2554Rdykdiuys department patient visitSMYTH COUNTY COMMUNITY HOSPITALStart: 02-24-2024 End: 05-33-8323Yrknxx Dixie Garcia DO Work Phone: [facility] - Family MedicineStart: 02-10-2024 End: 56-45-9035Ieqnju Dixie Montgomeryng DO Work Phone: [facility] Medicine - Family MedicineStart: 01-30-2024 End: 95-30-9286cpiaselbznNkpqef W Secor MDFacility:[facility] [place] Start: 01-14-2024 End: 38-33-9424Ruiybf OnlyDennis G Furlong DO Work Phone: [facility] Internal Medicine - Family MedicineComment on above:Class 2 severe obesity due to excess calories with serious comorbidity and body mass index (BMI) of39.0 to 39.9 in adult ([facility]) (Primary Dx)Start: 12-16-2023 End: 28-73-0321Aidvhf OnlyDennis G Furlong DO Work Phone: [facility] Internal Medicine - [facility] MedicineStart: 11-12-2023 End: 59-73-7183Fhqhzy OnlyDennis G Furlong DO Work Phone: [facility] Internal Medicine - Family MedicineComment on above:Class 2 severe obesity due to excess calories with serious comorbidity and body mass index (BMI) of39.0 to 39.9 in adult ([facility]) (Primary Dx)Start: 11-07-2023 End: 06-02-1516YwbywhZdsnn Uvaldo CMAProL[facility] Internal Medicine - Family MedicineComment on above:Morbid obesity ([facility]) (Primary Dx)Start: 10-30-2023 End: 85-39-4580Ezrwkr OnlyDennis G Furlong DO Work Phone: [facility] Internal Medicine - Family MedicineComment on above:Primary osteoarthritis of knee, unspecified laterality (Primary Dx)Start: 10-15-2023 End: 99-96-7952Llrtve outpatient new 45 minutesDennis G Furlong DO Work Phone: [facility] Internal Medicine - Family MedicineComment on [...] neoplasm of breast; Ex-cigarette smokerStart: 08-21-2023 End: 96-33-9983muawzlymrzEYWMC [facility] HospitalStart: 08-21-2023 Encounter for general adult medical examination without abnormal findingsROBIN [facility] HospitalStart: 26-74-7219cscswqfynzNASYLDoylestown Health Procedures DateProcedureProcedure DetailPerforming ClinicianStart: 99-01-0577Ix abdomen & pelvis w/contrast materialJigar Reynolds MD Work Phone: Start: 15-43-2120Kirqegxn blood count with white cell differential, automatedJigar Reynolds MD Work Phone: Start: 28-86-1599Thvsmawrdfjbo metabolic panelJigar Reynolds MD Work Phone: Start: 39-21-9286Hmsat drug screeningChad Violeta CHAUNCEY-SUPERVISOR [employer]ESSING Work Phone: Start: 10-93-4105Ihbmd depression screening assessment Jimmie Furlong DO Work Phone: Start: 70-05-0332Lcbof depression screening assessment Jimmie Furlong DO Work Phone: Start: 05-25-7261Rywnx depression screening assessment Jimmie Furlong DO Work Phone: Start: 62-34-5752Pfjtd depression screening assessment Jimmie Furlong DO Work Phone: Start: 55-24-5655Jofjr depression screening assessment Jimmie Furlong DO Work Phone: Start: 17-30-0226Mjwjm depression screening assessment Jimmie Furlong DO Work Phone: Plan of Treatment DateCare ActivityDetailAuthorStart: 07-68-2696MApN,Tdap and Td Vaccines (3 - Td or Tdap)DTaP,Tdap and Td Vaccines (3 - Td or Tdap)[facility] [employer] SystemStart: 01-76-8588Gvezcln vaccinationTETANUSAviWythe County Community Hospital SystemStart: 30-81-0347Mfqes panelLipidsBON PARMA COMM[facility]ITY GENERAL HOSPITALStart: 02-85-3765Xxori BMI Follow Up Plan Adult BMI Follow Up PlanUNC Health Blue Ridge - Valdesetart: 37-74-3579Dltys BMI ScreeningAdult BMI ScreeningFirelands [facility] SystemStart: 67-81-0326Mtvxrykvzg ScreeningDepression ScreeningFirelands Regional [facility] SystemStart: 28-35-9455Ufnacon ScreeningTobacco ScreeningFirelands Regional Medical [facility] SystemStart: 01-80-1810Qfjqe BMI ScreeningAdult BMI ScreeningFirelands Regional Medical [facility] SystemStart: 87-29-3992Wuavympqyh ScreeningDepression ScreeningFirelands Regional [facility] SystemStart: 72-37-8458Ybqgvfb ScreeningTobacco ScreeningFirelands Regional Medical [facility] SystemStart: 01-71-7408Kkwkc BMI ScreeningAdult BMI ScreeningFirelands Regional Medical [facility] SystemStart: 57-32-5533Dburcrcygr ScreeningDepression ScreeningFirelands Regional [facility] SystemStart: 14-37-5223Gatszsz ScreeningTobacco ScreeningFirelands Regional [facility] SystemStart: 08-49-5207Tqrqr BMI ScreeningAdult BMI ScreeningFirelands Regional Medical [facility] SystemStart: 85-38-7791Igqkrotbnx ScreeningDepression ScreeningUNC Health Blue Ridge - Valdesetart: 45-20-2551Wvjbmbw ScreeningTobacco ScreeningUNC Health Blue Ridge - Valdesetart: 08-19-2025 End: 65-85-1942Xwkfscq encounter nitsbltfo69/19/2026 2:00 PM EST Office Visit [facility] [address] [place] [address] Cayden Mcdaniel APRN-EDI [address] [place] [address] [facility] OrthopedicsStart: 92-10-5429Heldrzjvhjgcyo of varicella zoster vaccineZoster (Shingles) Vaccine (2 of 2)[facility] SystemStart: 77-51-4550Fbtydh vaccine hzv live for subcutaneous useZOSTER (SHINGLES) VACCINE (2 of 2)[facility] Cent[facility]art: 04-27-2025 End: 11-85-0352Pvrhfok encounter eqrujxahc51/28/2025 9:20 AM EDT Office Visit [facility] [address] [place] [address] Елена Martínez [address] [place] [address] [facility] OrthopedicsStart: 04-05-2025 End: 70-42-4961Vprwtxb encounter bvunbjrul56/06/2025 8:30 AM EDT Office Visit [facility] [address] [place] [address] Jimmie Garcia DO [address], [place] [address] [facility] MedicineStart: 89-59-6522Gakfsglyo vaccinationInfluenza VaccineFirelands Regional Medical Center [facility] Campus SystemComment on above:Postponed from 03/01/2025 (Vaccine Not Available)Start: 03-22-2025 End: 55-86-7656Ugloqfebn to same day surgery ynfmze5703/22/2025 12:55 PM EDT - 03/22/2025 2:10 PM EDT Surgery [facility] [address] [place] [address] Joaquín Baez MD [address] [place] [address] ARTHROPLASTY KNEE TOTALInspira Medical Center [facility] PeriopComment on above:ARTHROPLASTY KNEE TOTALStart: 03-22-2025 End: 34-92-6232Kxzclt kne condyle&platu medial&lat compartmentsARTHROPLASTY KNEE TOTAL Osteoarthritis of left knee, unspecified osteoarthritis type 03/22/2025 12:55 PM EDTAVI ONT ORStart: 03-22-2025 End: 42-75-0995Mtlh-asst surgical navigation image-lessASSISTANCE SURGICAL NAVIGATION MUSCULOSKELETAL IMAGELESS ADD-ON PX Osteoarthritis of left knee, unsp ecified osteoarthritis type 03/22/2025 12:55 PM EDTAVI ONT ORStart: 03-22-2025 Subsequent hospital visit by jewpksgfz40/22/2025 12:55 PM EDT Hospital Encounter [facility] [address] [place] [id number] Joaquín Baez MD [address] [place] [address] Osteoarthritis of left knee, unspecified osteoarthritis type [facility] PeriopComment on above:Osteoarthritis of left knee, unspecified osteoarthritis typeStart: 14-52-0550Rtlpy BMI ScreeningAdult BMI Screening [facility] SystemStart: 66-96-5868Dxikhskovq ScreeningDepression Screening [facility] Valdesetart: 14-32-7891Abzscpt ScreeningTobacco Screening [facility] Valdesetart: 03-15-2025 End: 62-56-2314Sreisus encounter czegpjfmw72/15/2025 4:00 PM EDT Office Visit [facility] Internal Medicine - Family Medicine [address] [place] [address] Jimmie Garcia, DO [address] [facility], [place] [address] [facility] - Family MedicineStart: 03-15-2025 End: 88-38-2733PJO Breast - bilateral screeningMammography screening bilateral with CAD Imaging Routine Encounter for screening mammogram for malignant neoplasm of breast Expected: 03/15/2025, Expires: 03/15/2026[facility] Work Phone: Comment on above:Expected: 03/15/2025, Expires: 03/15/2026Start: 82-91-8506EOQFQ-19 VACCINE ( season)COVID-19 VACCINE ( season)[facility] SystemStart: 45-56-5374Zpospybkv vaccination [facility]art: 02-25-2025 End: 43-52-3238Ytageespw to mgsrdlmqagkuq60/28/2025 9:00 AM EDT Pre-Operative Nurse Assessment [facility] Pre Admission [address] [facility] [place] [place] [address] [address] [place] Pre AdmissionStart: 72-60-6732zappuulyfn AmbulatoryFacility:Pain Management - [place]Start: 12-03-2024 End: 84-58-0190Srbwatc encounter cnuozumlq34/05/2025 4:15 PM EDT Office Visit [facility] - [facility] [address] [place] [address] Jimmie Garcia, DO [address], [place] [address] [facility] MedicineStart: 62-35-6815Talio BMI ScreeningAdult BMI ScreeningProCincinnati Va [facility] SystemStart: 98-93-8838Qdiyudpqej ScreeningDepression ScreeningFirelands [facility] SystemStart: 96-58-7180Aysjclk ScreeningTobacco ScreeningProCincinnati Va Medical Center SystemStart: 08-31-2024 End: 86-55-8468Slcvufa encounter gruxngjqd39/03/2025 4:30 PM EST Office Visit [facility] - [facility] [address] [place] [address] Jimmie Garcia, DO [address], [place] [address] [facility] MedicineStart: 68-14-8252Xatuhqmncb MonitoringDepression MonitoringSMYTH COUNTY COMMUNITY HOSPITALStart: 04-15-2024 End: 82-72-7775Rtmkmkp encounter xlodzqgcb18/16/2024 9:30 AM EDT Office Visit [facility] - Family [facility] [address] [place] [address] Jimmie Garica, DO [address], [place] [address] [facility] Physicians Internal Medicine - Family MedicineStart: 46-70-9545SLZOE-19 Vaccine ( season)COVID-19 Vaccine ()[facility]OSPITALStart: 28-67-7958MOCPN-19 Vaccine ()COVID-19 Vaccine ()[facility] SystemStart: 94-33-6153Ibksxzmrr vaccination Influenza VaccineFirelands Regional Medical Center South Campus SystemStart: 01-93-1073Tlzjmijff vaccination Flu vaccine (#1)[facility]ITALStart: 12-25-2023 End: 20-15-7841Jzrywyz encounter procedureWyandot [facility] - [facility] ImagingStart: 10-15-2023 End: 66-25-2861FS Chest for screening WO contrastCT low dose lung screening (Annual) Imaging Routine Ex-cigarette smoker Expected: 10/15/2023, Expires: 10/14/2024[facility] SystemComment on above:Expected: 10/15/2023, Expires: 10/14/2024Start: 10-15-2023 End: 81-07-0537BEP Breast - bilateral screeningMammography screening bilateral with CAD Imaging Routine Encounter for screening mammogram for malignant neoplasm of breast Expected: 10/15/2023, Expires: 10/14/2024[facility] HospitalComment on above:Expected: 10/15/2023, Expires: 10/14/2024Start: 42-57-2049VEDFG-19 Vaccine ()COVID-19 Vaccine ()[facility] SystemStart: 78-26-2229Wvmjnjojy for malignant neoplasm of breastBreast cancer screenBON PARMA COMMUNITY GENERAL HOSPITALStart: 01-03-2016 Administration of varicella zoster vaccineZoster (Shingles) Vaccine (1 of 2) [facility] SystemStart: 30-96-6925Xpbtouzjuwsh vaccinationKettering Health [facility] SystemStart: 80-64-7569Tyzeidoq vaccine (1 of 2)Shingles vaccine (1 of 2)[facility] Hospitalart: 76-94-7268Laktbr vaccine hzv live for subcutaneous useZOSTER (SHINGLES) VACCINE (1 of 2)[facility] Cent[facility]art: 11-20-2015 DTaP,Tdap and Td Vaccines (2 - Td or Tdap)DTaP,Tdap and Td Vaccines (2 - Td or Tdap)[facility]etart: 06-92-3457VEbA/Tdap/Td vaccine (2 - Td or Tdap)DTaP/Tdap/Td vaccine (2 - Td or Tdap)[facility]ITALStart: 76-96-4899Mldhtjt vaccinationTETANUSAUniversity Hospitals Parma Medical Centertart: 04-09-2015 Screening for malignant neoplasm of breastMAMMOGRAM SCREENING DISCUSSIONThe University of [facility] Medical Centertart: 94-12-2871Ebazfoiot for malignant neoplasm of colonBON Bluffton Hospitalart: 27-06-3222Dippr panelLIPID SCREENINGThe University of [facility] Medical Centertart: 06-84-8216Dobuqmdoqqzi 0-64 years Vaccine (2 of 2 - PPSV23 or PCV20)Pneumococcal 0-64 years Vaccine (2 of 2 - PPSV23 or PCV20)[facility]ITALStart: 26-41-6750Noemowdtn for malignant neoplasm of cervixBON Bluffton Hospitalart: 04-33-1962Tdbyjgrfx for malignant neoplasm of cervix [facility] Hospitalart: 79-08-7720Eanqdfcra B vaccinationHEP B VACCINE (1 of 3 - 19+ 3-dose series)[facility] Cent[facility]art: 40-28-8437Dwullijra B vaccine (1 of 3 - 19+ 3-dose series)Hepatitis B vaccine (1 of 3 - 19+ 3-dose series)[facility] Hospitalart: 35-19-2786Edisx BMI Follow Up PlanAdult BMI Follow Up PlanUNC Health Blue Ridge - Valdesetart: 79-02-6507Iqknofmum C screening Hepatitis C screenBON PARMA COMMUNITY GENERAL HOSPITALStart: 98-23-1150YIU screeningUVA Health University Hospitalart: 31-92-7402Axsbkmztx C screeningHEPATITIS C VIRUS SCREENINGMercy Health St. [facility] End: 49-21-5515Vnfpu metabolic 2000 panel - Serum or PlasmaBasic Metabolic Panel Lab Routine Hypokalemia 1 Occurrences starting 03/19/2024 until 03/19/2025 [facility] Work Phone: Comment on above:1 Occurrences starting 03/19/2024 until 03/19/2025 End: 06-41-4580GAC panel - Blood by Automated countCBC without diff Lab Routine Tremor 1 Occurrences starting 12/03/2024 until 12/03/2025[facility] Comment on above:1 Occurrences starting 12/03/2024 until 12/03/2025BC panel - Blood by Automated countCBC without diff Lab Routine Tremor 12/03/2024 5:19 PM ReceptosCologuard Non-[facility]MedicaCologuard Non-[facility] Lab Routine Screen for colon cancer Ordered: [employer] Work Phone: Comment on above:Ordered: 4Cologuard Non-ProMedicaCologuard Non-[facility] Lab Routine Screen for colon cancer Ordered: 03/15/2025[facility]5skillsComment on above:Ordered: 03/15/2025 End: 34-88-3353Zfzcsbufcacck metabolic 2000 panel - Serum or PlasmaComprehensive metabolic panel Lab Routine Tremor 1 Occurrences starting 12/03/2024 until 12/03/2025[facility] Work Phone: Comment on above:1 Occurrences starting 12/03/2024 until 12/03/2025omprehensive metabolic 2000 panel - Serum or Plasma Comprehensive metabolic panel Lab Routine Tremor 12/03/2024 5:19 PM [employer] End: 99-65-8295Mwtnjvgdy [Mass/volume] in Serum or PlasmaMagnesium Lab Routine Hypokalemia Other fatigue 1 Occurrences starting 03/19/2024 until 03/19/2025 [facility] on above:1 Occurrences starting 03/19/2024 until 03/19/2025Radiography for bone length studiesXR BONE LENGTH STUDY Imaging Routine Left knee pain, unspecified chronicity 02/03/2025 1:53 PM [facility] Work Phone: Radiography for bone length studiesXR BONE LENGTH STUDY Imaging Routine History of total knee arthroplasty, left 04/27/2025 9:04 AM [facility] InternationalURGICAL PATHOLOGY REQUESTSURGICAL PATHOLOGY REQUEST Surg Path Routine Osteoarthritis of left knee, unspecified osteoarthritis type Release Upon Ordering for 1 Occurrences starting 04/07/2025[facility] [employer] [facility] Comment on above:Release Upon Ordering for 1 Occurrences starting 04/07/2025 End: 49-42-7625BRY with ReflexTSH with Reflex Lab Routine Tremor 1 Occurrences starting 12/03/2024 until 12/03/2025[facility] [employer] [facility]borComment on above:1 Occurrences starting 12/03/2024 until 12/03/2025TS with ReflexTSH with Reflex Lab Routine Tremor 12/03/2024 5:19 PM [facility] End: 74-37-1683UO K[facility] - [facility] [employer] [facility]borComment on above:One Time for 1 Occurrences starting 04/07/2025 until 04/07/2025XR Knee - left 3 ViewsXR KNEE LEFT 3 VIEWS Imaging Routine History of total knee arthroplasty, left 04/27/2025 9:04 AM [employer] [facility]borXR Knee - left 4 ViewsXR KNEE LEFT 4+ VIEWS Imaging Routine Left knee pain, unspecified chronicity 02/03/2025 1:53 PM [facility] [employer] [facility] Immunizations Immunization DateImmunizationNotesCare MaicdbetSnzsfjww37-27-5509jeqhvxn toxoid, reduced diphtheria toxoid, and acellular pertussis vaccine, adsorbedDennis Furlong DO Work Phone: [facility]09-15-2025zoster vaccine recombinantDennis Furlong DO Work Phone: [facility]aconess HospitalBztvze76-04-9468Fncsirfwakjh, In Clinic,; Translations: [Drug or medicament (substance)]Jimmie Furlong DO Work Phone: [facility] [employer] Athgzd39-33-9133rqemld vaccine, unspecified formulationDennis Furlong DO Work Phone: [facility] WestEnCoate [facility] Care HospitalNcwnuf45-84-4099CKWRT-09, MODERNA BLUE border, Primary or Immunocompromised, (age 12y+), IM, 100 mcg/0.5mLBON PARMA COMMUNITY GENERAL HOSPITALXEXWZT37-10-8209MVMGW-96, MODERNA BLUE border, Primary or Immunocompromised, (age 12y+), IM, 100 mcg/0.5mLSMYTH COUNTY COMM[facility]PITAL 48-07-5181mvjssmr toxoid, reduced diphtheria toxoid, and acellular pertussis vaccine, adsorbedDennis Furlong DO Work Phone: [facility] HospitalWrgxby36-55-2502fyshzwlihbqu conjugate vaccine, 13 valentDennis Furlong DO Work Phone: [facility] Payers DatePayer CategoryPayerPolicy [id number] Care (unspecified)MMO NETWORK ACCESS Member Subscriber Plan / Payer (Effective 2024-Present) Name: SAKSHI HIGHTOWER Relation to Subscriber: Self Name: Sakshi Hightower Payer ID: Not on file Type: Not on file Address: [address] [id number]. [id number] Managed Care - PPO [id number] [id number]45Daavekm8013012541-30-1253 [id number] 2.840.1.322253.3.57[id number] 2.840.1.788734.3.57[id number] 2.840.1.145153.3.57[id number] 2.16.840.1.814051.3.57[id number] 2.16.840.1.527899.3.57[id number] 2.16.840.1.811613.3.57[id number] 2.16.840.1.375141.3.57[id number] 2.16.840.1.857521.3.57[id number] 2.16.840.1.071359.3.57[id number] 2..840.1.288857.3.57[id number] 2.16.840.1.102106.3.57[id number] 2..840.1.914876.3.57[id number] 2..840.1.178257.3.57[id number] 2.840.1.751755.3.57[id number] 2.840.1.636863.3.57[id number] 2.840.1.221903.3.579.2.983 Social History DateTypeDetailFacilityStart: 08-01-2023 End: 83-70-9014Zaiqlub smoking status NHISEx-smokerSMYTH COUNTY COMM[facility]PITAL Start: 07-01-2014 End: 00-13-7921Bullrag of tobacco useCurrent smokerUNC Health Blue Ridge - Valdesetart: 07-01-2014 End: 22-46-3722Slrtlcq of tobacco useCigarette SmokerProtestant Deaconess Hospital Start: 08-01-2023 End: 23-31-9350Hvpmjjn use and exposureSmokeless tobacco non-userUNC Health Blue Ridge - Valdesetart: 03-15-2024 End: 15-35-7451Dfocwrodm beverage intakeCurrent drinker of alcohol (finding) [facility]etart: 08-01-2023 End: 96-62-6783Scwznud of Social functionUNC Health Blue Ridge - Valdesetart: 08-01-2023 End: 07-73-5992Dpuxcqp use panelProtestant Deaconess HospitalPatient Health Questionnaire 9 item (PHQ-9) total score [Reported][address] [place] [address] Start: 69-94-4701Qhx assigned at birthNot on fileUNC Health Blue Ridge - Valdesetart: 01-68-4405Vdwpnlw CommentsocialUNC Health Blue Ridge - Valdesetart: 08-03-2012 End: 63-31-2310MthBuszlw (finding)[facility]etart: 02-03-2025 Tobacco smoking status NHISNever smoked tobaccoThe University of Toledo Medical Centertart: 74-88-7689Nktzssh CommentQuit 10 years agoThe University of Tol[facility] Medical Centertart: 02-11-2025 Alcohol CommentoccassionalThe University of Toledo Medical Centertart: 50-26-3995Eqniet identity Identifies as female gender (finding)[facility] Centertart: 78-27-5408Kyfntu orientationHeterosexual (finding)[facility] HospitalHow often to you have a drink containing alcohol?[facility] Medical Equipment Procedure CodeEquipment CodeEquipment Original TextEquipment IdentifierDates Attune Patella Medialized Dome 32mm Cemented [id number]: 04-07-2025 Attune Femoral Cruciate Retaining Size 6 Left [id number]_vghRkkep: 57-15-3272Pcjwcp Knee System Tibial Base Fixed Bearing Size 5 Cemented [id number]: 88-19-8611Hwwksc Knee System Tibial Insert Fixed Bearing Cruciate Retaining Size 6 7mm [id number]_ypiQfbih: 22-41-2206Jltmylq R 1x40 [id number]: 38-87-6822Meplzuv R [id number]: 04-07-2025 Functional Status ZroiRnvpazchfhMwdtpuXgnutkyk38-44-5321Asqfdjtrzuq anxiety disorder 7 item (DARIA-7)[facility] Clinical Notes 10-15-2023 to 04-27-2025 Note Date & KmljIcrlPecsclhb12-74-8604 History of Present illness Narrative* Miriam Alton - 04/27/2025 9:20 AM EDT Ortho Nurse - Established Patient Intake Room#: 4 Date: 04/27/2025 9:09 AM Patient: Sakshi Hightower MR#: [id number] : 1965 Age: 60 y.o. 3wk L TKA Pt stated she is doing good,but just painful that is a 01/07. Pt stated she needs a refillon her pain meds took the last one last night. Pt was wearing her jamie hose and using a walker at the time. Referring Physician: Sameer Wilburn PA-C Insurance: Payor: [employer] [place] / Plan: [employer] Access / Product Type: *No Product [...] tablet 0 Cholecalciferol (Vitamin D3) 1.25 MG (75329 UT) capsule Take 1 capsule by mouth [...] by Nasal route once for 1 dose. Eugene into the nose as directed. Call 911. [...] for moderate to severe pain Ween as tablet [address]op[address] [...] Rfl: 0 Cholecalciferol (Vitamin D3) 1.25 MG (27482 UT) capsule, Take 1 capsule by mouth [...] by Nasal route once for 1 dose. Eugene into the nose as directed. Call 911. [...] compression stockings. She is using Tylenol and [place] as needed for pain control. Reports is [...] -Erx to pharmacy for refill of the [place] at this time, she knows to be [...] All pertinent portions of the clinical technical sales support manager documentation was reviewed and agree. Елена Martínez Ortho Nurse - Established Patient Intake Room#: 4 Date: 04/27/2025 9:09 AM Patient: Sakshi Hightower MR#: [id number] : 1965 Age: 60 y.o. 3wk L TKA Pt stated she is doing good,but just painful that is a 01/07. Pt stated she needs a refillon her pain meds took the last one last night. Pt was wearing her jamie hose and using a walker at the time. Referring Physician: Sameer Wilburn PA-C Insurance: Payor: [employer] [place] / Plan: [employer] Access / Product Type: *No Product [...] tablet 0 Cholecalciferol (Vitamin D3) 1.25 MG (12114 UT) capsule Take 1 capsule by mouth [...] by Nasal route once for 1 dose. Eugene into the nose as directed. Call 911. [...] for moderate to severe pain Ween as ovqatvfvo91 tablet [address] Pantopraz[address] [...] Rfl: 0 Cholecalciferol (Vitamin D3) 1.25 MG (95866 UT) capsule, Take 1 capsule by mouth [...] by Nasal route once for 1 dose. Eugene into the nose as directed. Call 911. [...] spasms., Disp: , Rfl: documented in this [facility]10-18-2025 Emergency department Note* Zofia Davison RN - 04/17/2025 1:26 AM EDT K gtt not available in ED pyxis, PCC notified about med need. [facility]10-18-2025 Emergency department Note* Zofia Davison RN - 04/17/2025 1:26 AM EDT K gtt not available in ED pyxis, PCC notified about med need. * Jigar Reynolds MD - 04/17/2025 12:39 AM EDT Emergency Department Report [facility] EMERGENCY DEPARTMENT Service Date:.04/17/25 PCP: Jimmie Garcia [...] tablet, R-0 Cholecalciferol (Vitamin D3) 1.25 MG (79016 UT) capsule Take 1 capsule by mouth [...] by Nasal route once for 1 dose. Eugene into the nose as directed. Call 911. [...] Insecurity: No Food Insecurity (04/05/2025) Received from [facility] Hunger Screening Within the past 12 months we worried whether our food would run out before we got money to buy more.: Never True Within the past 12 months the food we bought just didn't last and we didn't have money to get more.: Never True Transportation Needs: No Transportation Needs (03/15/2025) Received from [facility] PRAPARE - Transportation Lack of Transportation (Medical): No Lack of Transportation (Non-Medical): No Physical Activity: Insufficiently Active (08/31/2024) Received from [facility] Exercise Vital Sign On average, how many days per week do you engage in moderate to strenuous exercise (like a brisk walk)?: 3 days On average, how many minutes do you engage in exercise at this level?: 20 min Stress: Not on file Social Connections: Not on file Personal Safety: Not on file Housing Stability: Low Risk (10/15/2023) Received from [facility] Housing Instability Are you worried or concerned [...] Laterality: Left; Surgeon: Joaquín Baez MD; Location: [facility] ONT OR ASSISTANCE SURGICAL NAVIGATION MUSCULOSKELETAL IMAGELESX Left 04/07/2025 Laterality: Left; Surgeon: Joaquín Baez MD; Location: [facility] ONT OR GASTRIC BYPASS 2014 BACK SURGERY 2000 laminectomy L4-5 TONSILLECTOMY [3] Allergies Allergen Reactions Howes Meal Anaphylaxis States she has EPI pen Peanut-Containing Drug Products Anaphylaxis Tree nuts Tramadol Anaphylaxis, Hives, Itching and Rash Other Reaction(s): Intolerance Heart racing Gramineae Pollens Itching ragweed Jigar Reynolds MD 04/17/25 0630 documented in this [facility]10-18-2025 Physician Emergency department Note* Jigar Reynolds MD - 04/17/2025 12:39 AM EDT Emergency Department Report [facility] EMERGENCY DEPARTMENT Service Date:.04/17/25 PCP: Jimmie Garcia [...] tablet, R-0 Cholecalciferol (Vitamin D3) 1.25 MG (20113 UT) capsule Take 1 capsule by mouth [...] by Nasal route once for 1 dose. Eugene into the nose as directed. Call 911. [...] Insecurity: No Food Insecurity (04/05/2025) Re[facility] from [facility] Hunger Screening Within the past 12 months we worried whether our food would run out before we got money to buy more.: Never True Within the past 12 months the food we bought just didn't last and we didn't have money to get more.: Never True Transportation Needs: No Transportation Needs (03/15/2025) Received from [facility] PRAPARE - Transportation Lack of Transportation (Medical): No Lack of Transportation (Non-Medical): No Physical Activity: Insufficiently Active (08/31/2024) [email or web address] Exercise Vital Sign On average, how many days per week do you engage in moderate to strenuous exercise (like a brisk walk)?: 3 days On average, how many minutes do you engage in exercise at this level?: 20 min Stress: Not on file Social Connections: Not on file Personal Safety: Not on file Housing Stability: Low Risk (10/15/2023) [facility] [employer] Housing Instability Are you worried or concerned [...] Laterality: Left; Surgeon: Joaquín Baez MD; Location: [facility] OR ASSISTANCE SURGICAL NAVIGATION MUSCULOSKELETAL IMAGELESX Left 04/07/2025 Laterality: Left; Surgeon: Joaquín Baez MD; Location: [facility] ONT OR GASTRIC BYPASS 2014 BACK SURGERY 1999 laminectomy L4-5 TONSILLECTOMY [3] Allergies Allergen Reactions Howes Meal Anaphylaxis States she has EPI pen Peanut-Containing Drug Products Anaphylaxis Tree nuts Tramadol Anaphylaxis, Hives, Itching and Rash Other Reaction(s): Intolerance Heart racing Gramineae Pollens Itching ragweed Jigar Reynolds MD 04/17/[address] [facility]10-08-2025 Miscellaneous Notes* Nursing Notes - Gayle Osorio RN - 04/07/2025 6:46 PM EDT Message sent to Dr. Valentin FURNITURE FABRICATOR's regarding hemovac leaking air, yet still pulling some drainage through tubing and into canister. Connections checked. New canister applied. No success. Hemovac discontinued per SB FURNITURE FABRICATOR verbal Order. * Nursing Notes - Gayle [...] patient ;child (daughter Alpa) Contact Information This [employer] is Primary Hematologist/SW Yes Hematologist Name Shari Vazquez RNremotely piloted vehicle controller's Living Environment Lives With alone (daughter to [...] (going to her daughter's home - [address] [place]) Functional Status Patient's Functional Status Prior To This Admission? Independent Concerns With Patient Being Able To Care For Themselves At Discharge? Has Assistance (Friend, Family, Skilled Provider) Employment/Financial Employed? 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) Walker (has FWW) Patient Goal for Discharge Return home with assistance from family and friends (working, family time, travel and less pain) [facility] [place] [facility]) Anticipated Services at Discharge Physical Therapy;[facility];Outpatient follow up;Outpatient rehab services Transportation Available car;family or friend will provide Assessment/Concerns to be Addressed Concerns To Be Addressed no discharge needs identified;denies needs/concerns at this time CM spoke with patient this date to discuss post-surgical discharge plans. Patient states the plan is to discharge to her daughter's home with family/friends assistance, [facility] requested and then OP therapy with [facility] in [place]. Patient has a wheeled walker. Patient denies any other questions or needs at this time. CM to continue to follow and assist with discharge plans. documented in this [facility]Mer[facility] Nurse Note* Nursing Notes - Gayle Osorio RN - 04/07/2025 6:46 PM EDT Message sent to Dr. Valentin FURNITURE FABRICATOR's regarding hemovac leaking air, yet still pulling some drainage through tubing and into canister. Connections checked. New canister applied. No success. Hemovac discontinued per SB FURNITURE FABRICATOR verbal Order. [facility]10-08-2025 Nurse Note* Nursing Notes - Gayle Osorio RN - 04/07/2025 6:21 PM EDT Written and verbal discharge instructions reviewed by SB RN. Daughter at bedside. Understanding voiced. Questions encouraged and answered. [facility]10-08-2025 Hospital Discharge instructions* Discharge Instructions* Aliya [...] Drain removal: Please call Dr Baez's nurse ([phone]) the morning after discharge with the recorded [...] do apply apressure dressing, please call the office/expedition supervisor provider so that they can direct you [...] at home. Dr. Baez's office number is [phone], option #2 for the nurse. We want to hear from you if you are having any concerns related to the surgery. If after hours, please be assured that we are still available to you! Simply contact the [facility] hospital number, and ask for Dr. [...] to your closest ER. documented in this encounterMer[facility]10-08-2025 Nurse Note* Nursing Notes - Gayle Osorio RN - 04/07/2025 3:18 PM EDT Assisted out of recliner chair with 2 assist. Gait belt on standby assist to restroom with walker. Tolerated well. [facility] [employer] [id number] History of Present illness Narrative* Ana Gautam [...] initial instruction. Pt will be discharging to [facility] home for 2-3 weeks and family can [...] Dr. Baez's prescribing practice. documented in this encounterMercy Regional Medical CenterRock Control [facility] [id number] Nurse Note* Nursing Notes - Gayle Osorio RN - 04/07/2025 1:00 PM EDT Lunch tray ordered. [facility] [id number] Nurse Note* Madai Arroyo RN - 04/07/2025 [...] to PACU with Fiona VALLES and RN optical instrument repairer. Reports given to Vanessa DE at 1140H. * Violeta Mart RN - 04/07/2025 10:24 AM EDT OR 4 Temperature 66.1F Humidity 42.5% documented in this encounterMercy Regional Medical CenterRock Control [facility] [id number] Nurse Surgical operation note* Madai Arroyo RN - 04/07/2025 12:05 PM EDT Left adductor canal nerve block complete at this time. Pt is in stable condition and denies any numbness around lips, ringing in ears, or metallic taste in mouth. Pt now lying on back and awake. Pt able to answer questions appropriately. Fiona VALLES finishing with dressing. No complaints at this time. [facility] [id number] Nurse Surgical operation note* Madai Arroyo RN - 04/07/2025 11:58 AM EDT Left adductor canal nerve block started at this time by Fiona VALLES. Pt is in stable condition at this time. Fiona VALLES is cleaning block site. Pt is lying on back with left thigh exposed. Pt still able to answer questions. No other complaints at this time. [facility]10-08-2025 Nurse Surgical operation note* Violeta Mart RN - 04/07/2025 11:40 AM EDT Patient transported to PACU with Fiona VALLES and RN optical instrument repairer. Reports given to Vanessa DE at 1140H. [facility]10-08-2025 Nurse Surgical operation note* Violeta Mart RN - 04/07/2025 10:24 AM EDT OR 4 Temperature 66.1F Humidity 42.5% [facility]10-08-2025 Nurse Note* Nursing Notes - Shari Hogan RN - 04/07/2025 7:15 AM EDT Patient ambulated to the bathroom with nursing staff [facility]10-08-2025 Nurse Note* Nursing Notes - Shari Hogan [...] discharged with 2 pairs of JAMIE hose. [facility]10-06-2025 History of Present illness Narrative* Jimmie [...] Head: Normocephalic. Nose: Nose normal. Mouth/Throat: Lips: Rupert. Mouth: Mucous membranes are moist. Dentition: Abnormal [...] were applied: encouragement toexercise. documented in this encounterMayo [facility] Hospital5skills09-19-2025 Miscellaneous Notes* Telephone Encounter - Coral White [...] - 03/19/2025 8:42 AM EDT Emailed to [email or web address] * Telephone Encounter - Vanessa Garcia CMA - 03/19/2025 8:42 AM EDT Patient emailed me back and stated that she needs RTW to state 03/22/25 documented in this encounterPro[facility]09-19-2025 Telephone encounter Note* Telephone Encounter - Coral White CMA - 03/19/2025 8:42 AM EDT Patient is really sick still and wanted to know if she could have a note for last night and tonightto be off [facility]09-19-2025 Telephone encounter Note* Telephone Encounter - Jimmie Garcia DO - 03/19/2025 8:42 AM EDT Sure. Note is printed [facility]09-19-2025 Telephone encounter Note* Telephone Encounter - Vanessa Garcia CMA - 03/19/2025 8:42 AM EDT Emailed to [email or web address] [facility]09-19-2025 Telephone encounter Note* Telephone Encounter - Vanessa Garcia CMA - 03/19/2025 8:42 AM EDT Patient emailed me back and stated that she needs RTW to state 03/22/25 [facility] [place] [id number] History of Present illness Narrative* Jimmie Joyamookie, - 03/15/2025 4:00 PM EDT Subjective Patient ID: Sakshi Hightower is a 60 y.o. female. Lina presents today for her annual wellness. She had labs done last week at [facility] for her wellness that was ordered by [...] Enlarged and swollen. Not pale. Mouth/Throat: Lips: Rupert. Mouth: Mucous membranes are moist. Pharynx: Postnasal [...] and will cover with an antibiotic. Continue jlba-mdo-dhyqlya medications Chronic bilateral low back pain without [...] a dayfor 7 days. documented in this encounterRegency Hospital Cleveland WestEnCoate [facility] [id number] Nurse Note* Nursing Notes - Shari Vazquez RN - 02/25/2025 9:29 AM EDT 02/25/25921 Referral Information Arrived From home or self-care Information Source Information Source patient ;child (daughter Alpa) Contact Information This [employer] is Primary Hematologist/SW Yes Hematologist Name Shari Vazquez RNremotely piloted vehicle controller's Living Environment Lives With alone (daughter to [...] (going to her daughter's home - [address] [place]) Functional Status Patient's Functional Status Prior To This Admission? Independent Concerns With Patient Being Able To Care For Themselves At Discharge? Has Assistance (Friend, Family, Skilled Provider) Employment/Financial Employed? 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) Walker (has FWW) Patient Goal for Discharge Return home with assistance from family and friends (working, family time, travel and less pain) Expected Discharge Disposition HH ([facility] then [facility] in [place] OP) Anticipated Services at Discharge Physical Therapy;[facility];Outpatient follow up;Outpatient rehab services Transportation Available car;family or friend will provide Assessment/Concerns to be Addressed Concerns To Be Addressed no discharge needs identified;denies needs/concerns at this time CM spoke with patient this date to discuss post-surgical discharge plans. Patient states the plan is to discharge to her daughter's home with family/friends assistance, [facility] requested and then OP therapy with [facility] in [place]. Patient has a wheeled walker. Patient denies any other questions or needs at this time. CM to continue to follow and assist with discharge plans. [facility]08-06-2025 History of Present illness Narrative* Evelin Hernandez - 02/03/2025 1:50 PM EDT Ortho Nurse - Established Patient Intake Room#: room 2--- FURNITURE FABRICATOR - referral from Dr. Garcia - Left knee pain for years; stairs are difficult; knee gives out. She has tried injections and therapy with last injections being 3 months ago. She rates her pain on a scale of 8/10. denies nicotine; surgery discussion Date: 02/03/2025 2:07 PM Patient: Sakshi Hightower MR#: [id number] : 1965 Age: 60 y.o. Referring Physician: [...] 2 puffs. Cholecalciferol (Vitamin D3) 1.25 MG (93195 UT) capsule Take 1 capsule by mouth [...] the more it hurts. Patient has tried Waterbury,injections and weight modification in the past, which do not provide relief from current symptoms. Adarsh gandhi is here today for evaluation and to determine treatment options. Pain is 8-9/10 on a daily basis. History of gastric bypass surgery. Patient is seeing pain management in [place] where she is prescribed Waterbury. PHYSICAL EXAM: This is an alert, oriented, [...] joint space, subchondral sclerosis, osteophyte formation, and wnlk-pt-edwj contact. IMPRESSION: 1.) Severe symptomatic end-stage arthritis, [...] of limb, and ultimately loss of life. senior living expectations, risks and general implant survivorship were also discussed. Despite these risks, the patient would like to proceed with surgical planning. Today, we will initiate the pre-surgical process including nasal MRSA screening, scheduling an appointment for [facility] and the potential surgical date, and reviewing [...] Insecurity: No Food Insecurity (08/31/2024) Received from [facility] Hunger Screening Within the past 12 months we worried whether our food would run out before we got money to buy more.: Never True Within the past 12 months the food we bought just didn't last and we didn't have money to get more.: Never True Physical Activity: Insufficiently Active (08/31/2024) Received from [facility] Exercise Vital Sign Days of Exercise per Week: 3 days Minutes of Exercise per Session: 20 min Housing Stability: Low Risk (10/15/2023) [facility] from [facility] Housing Instability Are you worried or concerned that in the next two months you may not have stable housing that you own, rent or stay in as a part of a household?: No Current Outpatient Medications: Albuterol 108 (90 Base) MCG/ACT Aero Soln inhaler, Inhale 2 puffs., Disp: , Rfl: Cholecalciferol (Vitamin D3) 1.25 MG (00186 UT) capsule, Take 1 capsule by mouth [...] spasms., Disp: , Rfl: Allergies Allergen Reactions Howes Meal Anaphylaxis States she has EPI pen Peanut-Containing Drug Products Anaphylaxis Tree nuts Tramadol Anaphylaxis, Hives, Itching and Rash Other Reaction(s): Intolerance Heart racing Gramineae Pollens Itching ragweed documented in this encounterMercy Health St[facility]06-05-2025 History of Present illness Narrative* Jimmie Garcia, - 12/03/2024 4:15 PM EDT Subjective Patient ID: Sakshi Hightower is a 59 y.o. female. Lina presents today for recheck of multiple problems. She has been seeing pain management for her left knee pain. She has arthritis and was told she needed a knee replacement. She has been seeing painmanagement and was taking Waterbury but that did not help. She also [...] Exam Vitals reviewed. Exam conducted with a miller helper distillery present (Mario Ibanez MS 3). Constitutional: Appearance: [...] is intact. Romberg sign negative. Coordination normal. Ysscli-Uwae-Luojtv Test and Heel to Pinon Test normal. [...] lorazepam for p.r.n. use. documented in this encounterProtestant Deaconess Hospital05-22-2025 NoteProcedure: Bilateral Genicular Nerve Block of [...] on his/her behalf by a trained medical billing and coding specialist. The creation of this document is based on the provider?s statements to the medical billing and coding specialist. Electronically signed by Manpreet Hampton MD 11/19/24 16:24 EDT Electronically signed by Mireya Rm 11/19/2024 16:08 [facility]05-22-2025 NoteHistory of Present Illness CHIEF COMPLAINT: [_] [...] on his/her behalf by a trained medical billing and coding specialist. The creation of this document is based on the provider?s statements to the medical billing and coding specialist. 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 Cigarettes Family History Hypertension: Father. Health Status Family Member(s) Lab Results Microbiology - Current Encounter No qualifying data available. Electronically signed by Manpreet Hampton MD 11/19/24 16:24 EDT Electronically signed by JagMireya araujo 11/19/2024 15:39 ED[facility] History of Present illness Narrative* Jimmie Garcia, [...] Exam Vitals reviewed. Exam conducted with a miller helper distillery present (Leo Davison MS3). Constitutional: General: She [...] diet and exercise program. documented in this encounterProtestant Deaconess Hospital09-23-2024 Miscellaneous Notes* Telephone Encounter - Vanessa Garcia CMA - 03/23/2024 9:31 AM EDT Patient called and stated that she needs the next 2 days off. * Telephone Encounter - Yanet Carrera - 03/23/2024 9:31 AM EDT Patient called back and needs the time off extended going back to work 03/25 please fax to [phone] * Telephone Encounter - Jimmie Garcia DO - 03/23/2024 9:31 AM EDT Okay. Note is printed to be faxed * Telephone Encounter - Yanet Carrera - 03/23/2024 9:31 AM EDT faxed documented in this encounterProtestant Deaconess Hospital09-23-2024 Telephone encounter Note* Telephone Encounter - Vanessa Garcia CMA - 03/23/2024 9:31 AM EDT Patient called and stated that she needs the next 2 days off. [facility]09-23-2024 Telephone encounter Note* Telephone Encounter - Yanet Carrera - 03/23/2024 9:31 AM EDT Patient called back and needs the time off extended going back to work 03/25 please fax to [phone] [facility]09-23-2024 Telephone encounter Note* Telephone Encounter - Jimmie Garcia DO - 03/23/2024 9:31 AM EDT Okay. Note is printed to be faxed [facility]09-23-2024 Telephone encounter Note* Telephone Encounter - Yanet Carrera - 03/23/2024 9:31 AM EDT faxed [facility]09-19-2024 History of Present illness Narrative* Jimmie [...] tomorrow. 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 She does [...] mg total) before bedtime. documented in this encounterProtestant Deaconess Hospital06-17-2024 Miscellaneous Notes* Telephone Encounter - Simona [...] but she is willing to drive to [place] to get itif you allow it * Telephone Encounter - Jimmie Garcia DO - 12/16/2023 4:53 PM EDT Okay. I printed out a form to faxed to [facility] * Telephone Encounter - Yanet Carrera - 12/16/2023 4:53 PM EDT done documented in this encounterProtestant Deaconess Hospital06-17-2024 Telephone encounter Note* Telephone Encounter - Simona Bailon CMA - 12/16/2023 4:53 PM EDT Pt called wanted to know if you could send over something for nausea she can't get ahold of it , stated she did stop the wegovy this past week to see if it is from that [facility]06-17-2024 Telephone encounter Note* Telephone Encounter - Jimmie Garcia DO - 12/16/2023 4:53 PM EDT Okay I sent in Phenergan. It probably is the Wegovy [facility]06-17-2024 Telephone encounter Note* Telephone Encounter - [...] there about talking to you about switching [facility]06-17-2024 Telephone encounter Note* Telephone Encounter - Simona Bailon CMA - 12/16/2023 4:53 PM EDT Pt called back said her pharmacy dont do compound but she is willing to drive to [place] to get itif you allow it [facility]06-17-2024 Telephone encounter Note* Telephone Encounter - Jimmie Garcia DO - 12/16/2023 4:53 PM EDT Okay. I printed out a form to faxed to [facility]06-17-2024 Telephone encounter Note* Telephone Encounter - Yanet Carrera - 12/16/2023 4:53 PM EDT done [facility]04-16-2024 History of Present illness Narrative* Jimmie [...] doesn't have any symptoms. documented in this encounterFirelands [facility] SystemEvaluation note* Diagnosis Primary osteoarthritis of knee, unspecified laterality- Primary documented in this encounter [facility]* Diagnosis Morbid obesity ([facility])- Primary Morbid obesity documented in this encounter [facility]* Diagnosis Class 2 severe obesity due to excess calories with serious comorbidity and body mass index (BMI) of39.0 to 39.9 in adult ([facility])- Primary documented in this encounter [facility] System[facility] note* Diagnosis Anxiety- Primary Anxiety state, unspecified Depression, unspecified depression type MARYLU (obstructive sleep apnea) Obstructive sleep apnea (adult) (pediatric) Gastroesophageal reflux disease, unspecified whether esophagitis present Class 2 severe obesity due to excess calories with serious comorbidity and body mass index (BMI) of39.0 to 39.9 in adult ([facility]) Screen for colon cancer Special screening for malignant neoplasms, colon Encounter for screening mammogram for malignant neoplasm of breast Ex-cigarette smoker Personal history of tobacco use, presenting hazards to health documented in this encounter [facility] note* Diagnosis Nausea and vomiting, unspecified vomiting type- Primary Hypokalemia Hypopotassemia Other fatigue Class 1 obesity due to excess calories with serious comorbidity and body mass index (BMI) of 33.0 to 33.9 in adult documented in this encounter [facility]* Diagnosis Class 1 obesity due to excess calories with serious comorbidity and body mass index (BMI) of 33.0 to 33.9 in adult- Primary documented in this encounter [facility]* Diagnosis Class 1 obesity due to excess calories with serious comorbidity and body mass index (BMI) of 33.0 to 33.9 in adult- Primary documented in this encounter [facility]* Diagnosis Class 1 obesity due to excess calories with serious comorbidity and body mass index (BMI) of 34.0 to 34.9 in adult- Primary Tremor Abnormal involuntary movements Recurrent major depressive disorder, remission status unspecified Chronic bilateral low back pain without sciatica Primary osteoarthritis of left knee Anxiety Anxiety state, unspecified documented in this encounter [facility]* Diagnosis Chronic bilateral low back pain without sciatica- Primary documented in this encounter [facility]* Diagnosis Primary osteoarthritis of left knee- Primary documented in this encounter [facility]* Diagnosis Left knee pain, unspecified chronicity- Primary Osteoarthritis of left knee, unspecified osteoarthritis type documented in this encounter [facility]* Diagnosis Well adult exam- Primary [...] pain without sciatica documented in this encounter [facility]* Diagnosis Pre-op evaluation- Primary Primary osteoarthritis of left knee Mild intermittent asthma, unspecified whether complicated Class 1 obesity due to excess calories with serious comorbidity and body mass index (BMI) of 34.0 to 34.9 in adult documented in this encounter [facility] note* Diagnosis Acute postoperative pain of left knee- Primary Osteoarthritis of left knee, unspecified osteoarthritis type documented in this encounter [facility] SystemEvaluation note* Diagnosis Nausea and vomiting, unspecified vomiting type- Primary Acute post-operative pain Hypokalemia Hypopotassemia documented in this encounter [facility]* Diagnosis Chronic bilateral low back pain without sciatica Anxiety Anxiety state, unspecified documented in this encounter [facility] note* Diagnosis History of total knee arthroplasty, left- Primary Acute postoperative pain of knee documented in this encounter [facility] note* Diagnosis Anxiety Anxiety state, unspecified documented in this encounter [facility]* Attachments The following attachments cannot be sent through Care Everywhere. * Nausea and Vomiting (Tajik) * Hypokalemia (Tajik) documented in this encounterAvita Health SystemInstructionsNot on [...] unspecified laterality Jimmie Garcia, DO [address] [facility] [place] [address] Papo Irizarry MD [address] [facility] [place] [address] [place] [address] Referral IDStatusReasonStart DateExpiration DateVisits RequestedVisits [id number] Review Specialty Services Required / [facility] for referral (narrative)* Medication Prior Authorization - Pending ReviewSpecialtyDiagnoses / ProceduresReferred By ContactReferred To Contact iJmmie Garcia DO [address] [facility] [place] [address] Phone: tel: fax: Referral IDStatusReasonStart DateExpiration DateVisits RequestedVisits [id number] [facility] for visit Narrative* Diagnostic X-Ray (Routine) - Pending ReviewSpecialtyDiagnoses / ProceduresReferred By ContactReferred To Contact Diagnoses Left knee pain, unspecified chronicity Procedures XR KNEE LEFT 4+ VIEWS Joaquín Baez MD [address] [place] [address] Phone: tel: fax: Referral IDStatusReasonStart DateExpiration DateVisits RequestedVisits [id number] Review/ [facility] for visit Narrative* Auth/CertSpecialtyDiagnoses / ProceduresReferred By ContactReferred To Contact Diagnoses Osteoarthritis of left knee, unspecified osteoarthritis type Osteoarthritis of left knee, unspecified osteoarthritis type [M17.12] Procedures WY ARTHRP KNE CONDYLE&PLATU MEDIAL&LAT COMPARTMENTS WY CPTR-ASST SURGICAL NAVIGATION IMAGE-LESS ARTHROPLASTY KNEE TOTAL ASSISTANCE SURGICAL NAVIGATION MUSCULOSKELETAL IMAGELESS ADD-ON PX Joaquín Baez MD [address] [place] [phone] Phone: tel: fax: [facility] [address] [place] [address] Referral IDStatusReasonStart DateExpiration DateVisits RequestedVisits [id number] [facility] for visit Narrative* Diagnostic X-Ray (Routine) - New RequestSpecialtyDiagnoses / ProceduresReferred By ContactReferred To Contact Diagnoses History of total knee arthroplasty, left Procedures XR BONE LENGTH STUDY VikramjarrodericЕлена Bessy [address] [place] [address] Phone: tel: fax: Referral IDStatusReasonStart DateExpiration DateVisits RequestedVisits [id number] Kkafops18/ [facility] Summary Purpose Family History No Family History Records FoundNo Family History Records FoundNo Family History Records FoundNo Family History Records FoundNo Family History Records Found Advance Directives Date ActivatedDate AopdlizefanKncarwxk86/8/2025 11:42 AMDate ActivatedDate ZiwpsibjegtZieoefkf18/8/2025 11:42 AM Reason for Referral SpecialtyDiagnoses / ProceduresReferred By ContactReferred To Contact Diagnoses Morbid obesity (CMS-HCC) Jimmie Garcia DO [address] [place] [address] Referral IDStatusReasonStart DateExpiration DateVisits RequestedVisits [id number] / ProceduresReferred By Contact Referred To ContactRadiology Diagnoses Ex-cigarette smoker Procedures CT low dose lung screening (Annual) Jimmie Garcia DO [address], [place] [address] Referral IDStatusReasonStart DateExpiration DateVisits RequestedVisits [id number] Review/ Additional Source Comments INFORMATION SOURCE (unrecogn ized section and content) DATE CREATED AUTHOR 04/02/2022 [facility] DATE CREATED AUTHOR AUTHOR'S ORGANIZ ATION 03/16/2024 [facility] DATE CREATED AUTHOR AUTHOR'S ORGANIZ ATION 11/26/2024 [facility] DATE CREATED AUTHOR AUTHOR'S ORGANIZ ATION 04/03/2025 [facility] DATE CREATED AUTHOR AUTHOR'S ORGANIZ ATION 04/28/2025 [facility] Reason for Visit (unrecogniz ed section and content) ReasonCommentsEmesisX3 weeks, states on prescription weight loss medication. Denies abd painReasonOnset DateCommentsMed [id number] PatientReasonOnset DateCommentsMed Bhpipn1502/24/2024easonCommentsFollow-upNot keeping food down, low potassium, holguin tones in urineReasonOnset DateCommentsMed [id number] RefillReasonCommentsWeight Lossdiscussion ReasonComments3 month f/uReasonCommentsPainSpecialtyDiagnoses / Procedures Referred By ContactReferred To ContactOrthopaedic Surgery / Orthopaedics Diagnoses Primary osteoarthritis of left knee Jimmie Garcia, [address] [facility] [place] [address] Phone: tel: fax: Joaquín Baez MD [phone] [place] [address] Phone: tel: fax: Referral IDStatusReasonStart DateExpiration DateVisits RequestedVisits [id number] Exam ReasonCommentsPre-op ExamAfter antibiotic- left total kneeReasonCommentsPost-Op Problem Left knee replaced on Saturday. Now vomiting for a couple days and got worse today. Pain in left knee 04/09. ReasonCommentsPost Op VisitReasonOnset DateCommentsMed Ieswci3804/27/2025ReasonOnset DateCommentsMed Vyllcd8305/03/2025 Care Teams (unrecognized sec tion and content) Team MemberRelationshipSpecialtyStart DateEnd Date Jimmie Garcia DO [address], [place] [address] PCP - [facility] Medicine10/15/23Team MemberRelationshipSpecialtyStart DateEnd Date Jimmie Garcia DO [address], [place] [address] PCP - [facility]10/15/23Team MemberRelationshipSpecialtyStart DateEnd Date MahnazmookieJimmieDO [address], [place] [address] PCP - [facility]10/15/23Team MemberRelationshipSpecialtyStart DateEnd Date MahnazmookieJimmieDO [address], [place] [address] PCP - [facility] Medicine10/15/23Team MemberRelationshipSpecialtyStart DateEnd Date MahnazmookieJimmieDO [address], [place] [address] PCP - [facility]10/15/23Team MemberRelationshipSpecialtyStart DateEnd Date RadhaClaudiaJimmie RochelleDO [address], [place] [address] PCP - [facility] Medicine10/15/23Team MemberRelationshipSpecialtyStart DateEnd Date Radha Jimmie Byrd DO [address] [place] [address] PCP - [facility]10/15/23Team MemberRelationshipSpecialtyStart DateEnd Date Radha Jimmie Byrd DO [address], [place] [address] PCP - [facility]10/15/23Team MemberRelationshipSpecialtyStart DateEnd Date Jimmie Garcia DO [address], [place] [address] PCP - [facility] Medicine10/15/23Team MemberRelationshipSpecialtyStart DateEnd Date Jimmie Garcia DO [address], [place] [address] [facility]/23Team MemberRelationshipSpecialtyStart DateEnd Date Jimmie Garcia DO [address], [place] [address] [facility]10/15/23Team MemberRelationshipSpecialtyStart DateEnd Date Jimmie Garcia DO [address], [place] [address] [facility] - [facility]10/15/23Team MemberRelationshipSpecialtyStart DateEnd Date Jimmie Garcia DO [address], [place] [address] PCP - [facility]10/15/23Team MemberRelationshipSpecialtyStart DateEnd Date MahnazmookieClaudiaJimmie Rochelle [address], [place] [address] [facility] - [facility]10/15/23Team MemberRelationshipSpecialtyStart DateEnd Date Mahnazmookie Jimmie Byrd DO [address], [place] [address] PCP - [facility]10/15/23Team MemberRelationshipSpecialtyStart DateEnd Date MahnazJimmie damico DO [address], [place] [address] PCP - [facility]10/15/23Team MemberRelationshipSpecialtyStart DateEnd Date MahnazJimmie damico DO [address], [place] [address] [facility] - [facility]10/15/23Team MemberRelationshipSpecialtyStart DateEnd Date Jimmie Garcia DO [address], [place] [address] [facility]CP - [facility]10/15/23Team MemberRelationshipSpecialtyStart DateEnd Date Jimmie Garcia DO [address], [place] [address] PCP - [facility]Family Medicine01/04/25Team MemberRelationshipSpecialtyStart DateEnd Date Jimmie Garcia DO [address], [place] [address] [facility]01/04/25Team MemberRelationshipSpecialtyStart DateEnd Date Jimmie Garcia DO [address], [place] [address] PCP - [facility]10/15/23Team MemberRelationshipSpecialtyStart DateEnd Date Jimmie Garcia DO [address], [place] [address] PCP - [facility]10/15/23Team MemberRelationshipSpecialtyStart DateEnd Date Jimmie Garcia DO [address], [place] [address] PCP - [facility]10/15/23Team MemberRelationshipSpecialtyStart DateEnd Date Jimmie Garcia DO [address] [place] [address] PCP - [facility]10/15/23Team MemberRelationshipSpecialtyStart DateEnd Date Jimmie Garcia DO [address] [place] [address] PCP - [facility]01/04/25Team MemberRelationshipSpecialtyStart DateEnd Date Jimmie Garcia DO [address] [place] [address] [facility] - [facility]10/15/23Team MemberRelationshipSpecialtyStart DateEnd Date MahnazmookieJimmie [address] [place] [address] PCP - [facility]01/04/25Team MemberRelationshipSpecialtyStkeoke[place] DateEnd Date MahnazJimmie damico [address] [place] [address] [facility] - [facility]01/04/25Team MemberRelationshipSpecialtyStkeokee DateEnd Date Mahnazmookie JimmieDO alfredo [address] [place] [address] [facility] - [facility]01/04/25Team MemberRelationshipSpecialtyStkeokee DateEnd Date MahnazmookieClaudiaJimmie DO Rochelle [address] [place] [address] [facility] - [facility]10/15/23 Scheduled Active and Recently Administ [...] action when infusion is complete: Stopped]) Medication Order10/06/058256//01/2025 acetaminophen (TYLENOL) tablet 1,000 mg (COMPLETED) 1,000 [...] 2 g, Intravenous, Administer over 15 Minutes, BUTTERMAKER CONTINUOUS CHURN TO PROCEDURE, 1 dose, Starting on Sat04/07/25at 0638, Until Sat04/07/25 at 0939, Other, Pre-operative antibiotic, Pre-op/Pre-Proc * 0939 ($$New Bag$$ - Provider: Fiona Love APRN-[facility]) HYDROmorphone (DILAUDID) injection 0.5 mg (COMPLETED) 0.5 [...] 0200 * 0126 (Given - Provider: Zofia Daviosn RN) HYDROmorphone (DILAUDID) injection 1 mg (COMPLETED) [...] the amount of diluent recommended by the collar pointer. Solution should be sipped slowly, over 5-10 [...] BE BASED ON THE PRIMARY CLINICAL RECORDS. [facility] [employer] [facility]. provides no warranty or guarantee of the accuracy or completeness of information in this document.
[2025-06-08] MEDS: ENOXAPARIN SODIUM 40 MG/0.4 ML SYRINGE SUBQ (18:05)
--- NOTE | 2025-06-08 19:02 | PM.CN ---
Consult Note: HPI Data of Consult Patient: new to practice Consult date: 06/08/25 Requesting Physician: Robert Soler Primary Care Provider: GARY DEMARCO Consult Narrative Reason for consult: anemia, gastric bypass, granulomatous disease Narrative: 60 y/o female whom we are asked to see in consultation for anemia, hx of gastric bypass, and granulomatous disease. She presented to the ER with nausea, vomiting, and concern for narcotic withdrawal. She had retching, belching, nausea, 2 episodes of vomiting, feeling that she is going through withdrawal. Patient has been on opiates for the last 20 years for back pain, chronic pain syndrome. Also patient had recently left knee replacement and has been taking Percocet up to 3 to 4 tablets in 24 hours. Patient continues to have pain and discomfort but does not want to take opiates anymore. She decided to stop taking Percocet about 3 days ago. Patient started having nausea followed by vomiting, retching and belching. She related to possible opiates withdrawal. Prior to that, patient tried to take herself off Percocet but was unable to. She was using kratom trying to suppress her opiates craving and withdrawal. She was taking too much of it. Also patient had been feeling depressed and anxious. She saw her primary care doctor who put her on Vraylar. In addition increase her Xanax from 0.5 up to 1 mg twice a day as needed. Patient denies any fever, chills, hematemesis or melena. No abdominal pain. No diarrhea. She has several family members at the bedside. She wonders what her symptoms may be related to. Her CT abdomen imaging while admitted shows gall stones. She has calcified splenic granuloma. She does not have any pathologic adenopathy. She has fibroid in the uterus. Imaging does not show any acute process. I informed her that splenic calcified granuloma likely reflects prior exposure to Histoplasmosis, as [place]. I informed her that her her weight loss, nausea, vomiting likely requires GI evaluation with endoscopy, and perhaps testing for functional gut motility. I informed her that I do not see any acute oncologic process. Of note, she is behind on colon cancer and breast cancer screening. She would require colonoscopy (or perhaps cologuard) along with mammogram. She plans to discuss with Dr Demarco upon discharge. She would also benefit from periodic testing of iron studies, B12 level, vit D level given her gastric bypass. She notes that she takes SL B12 tab daily, and vit D 50K units weekly, which is appropriate. ECOG PS 1. cc:: CC: Robert Soler Review of Systems ROS Narrative A comprehensive 12 point review of systems was conducted and is negative other than that reported in the history of present illness. PFSH PFSH Surgical History (Updated 06/05/25 @ 18:06 by Zoey Abraham) History of back surgery ?Z98.890 - Other specified postprocedural states (ICD-10) History of total left knee replacement ?Z96.652 - Presence of left artificial knee joint (ICD-10) H/O gastric bypass ?Z98.84 - Bariatric surgery status (ICD-10) Family History (Updated 06/05/25 @ 18:07 by Zoey Abraham) Father Family history of myocardial infarction Social History Highest level of school completed/degree received: Associate degree: occupational, technical, vocational program Little interest or pleasure in doing things: more than half the days Feeling down, depressed, or hopeless: more than half the days Meds Home Medications and Allergies Home Medications ?Medication ?Instructions ?Recorded ?Confirmed ?Type cholecalciferol (vitamin D3) 1,250 50,000 unit PO QWEEK 03/16/24 06/06/25 History mcg (50,000 unit) capsule escitalopram oxalate 20 mg tablet 20 mg PO QDAY 03/16/24 06/05/25 History tizanidine 4 mg tablet 8 mg PO .qhs muscle spasms 03/16/24 06/06/25 History albuterol 90 mcg/actuation aerosol 90 mcg inhalation Q4H PRN 06/05/25 06/06/25 History inhaler shortness of breath cariprazine 1.5 mg capsule 1.5 mg PO DAILY 06/05/25 06/05/25 History (Vraylar) hydroxyzine HCl 25 mg tablet 25 mg PO Q8H PRN anxiety 06/05/25 06/05/25 History lorazepam 1 mg tablet (Ativan) 1 mg PO Q12H PRN anxiety 06/05/25 06/05/25 History ondansetron 8 mg disintegrating 8 mg PO Q8H PRN nausea and vomiting 06/05/25 06/05/25 History tablet pantoprazole 40 mg tablet,delayed 40 mg PO DAILY 06/05/25 06/05/25 History release pregabalin 50 mg capsule 50 mg PO Q8H 06/05/25 06/05/25 History tizanidine 4 mg tablet (Zanaflex) 4 mg PO Q8H PRN muscle spasticity 06/05/25 06/06/25 History Allergies Allergy/AdvReac Type Severity Reaction Status Date / Time tramadol (From [facility]) Allergy unknown Verified 06/05/25 12:57 Exam Narrative Exam Narrative: Narrative Exam Narrative: [pt is awake and alert. oriented to place, time and person, central obesity HEENT: [place] conjunctiva and NL buccal mucosa Neck: Supple, no tenderness Endocrine: No Thyromegaly. Vascular: No JVD or carotid bruit. Lymphatic: No cervical lymphadenopathy. Chest: CTA no DTP. Heart RRR, no extra sound or murmur. Abd: Soft, no tenderness, no rebound and no rigidity. Increase abd girth therefore clinically I could not exclude the possibility of intra abd mass or organomegaly. LE: No cyanosis or clubbing, no varices or edema. Evidence of recent left knee replacement. Midline surgical scar. No skin opening. No drainage. No erythema. No warmth. Patient is able to flex her knee more than 45 degrees without any major difficulties. Neuro: A A O. Nl speech, comprehension and attention. Nl and symetrical motor and tone examination through out. []] Constitutional Vital Signs, click to edit/add: Last Vital Signs Temp 97.9 F 06/06/25 08:00 Pulse 60 06/06/25 08:07 Resp 18 06/06/25 08:00 BP 110/72 06/06/25 08:00 Pulse Ox 98 06/06/25 08:00 O2 Del Method Room Air 06/06/25 08:00 Constitutional Vital Signs, click to edit/add: Last Vital Signs Temp 98.0 F 06/08/25 16:25 Pulse 86 06/08/25 18:00 Resp 16 06/08/25 16:25 BP 132/80 06/08/25 16:25 Pulse Ox 97 06/08/25 16:25 O2 Del Method Room Air 06/08/25 16:25 Results Labs Labs: Short CBC 06/08/25 Range/Units 04:55 WBC 5.5 (4.0-11.0) 10^3/uL Hgb 12.1 (12.0-16.0) g/dL Hct 37.6 (36.0-48.0) % Plt Count 287 (150-450) 10^3/uL BMP 06/08/25 04:55 Sodium 141 Potassium 3.8 Chloride 105 Carbon Dioxide 28.8 BUN <1.0 L Creatinine 0.63 Glucose 121 H Calcium 9.6 Liver Function 06/08/25 Range/Units 04:55 Total Bilirubin 0.7 (0.2-1.0) mg/dL AST 18 (15-37) U/L ALT 16 (14-59) U/L Alkaline Phosphatase 126 H (46-116) U/L Albumin 3.4 (3.4-5.0) g/dL Assessment and Plan Assessment and Plan (1) Narcotic withdrawal: (2) Nausea & vomiting: Qualifiers: Vomiting type: unspecified Qualified Code(s): R11.2 - Nausea with vomiting, unspecified Plan 60 y/o female whom we are asked to see in consultation for anemia, hx of gastric bypass, and granulomatous disease. Impression: 1. Nausea, vomiting 2. Hx of gastric bypass 3. Gall stone disease noted on CT imaging 4. Possible narcotic withdrawal 5. Chronic pain syndrome on narcotics 6. Calcified splenic granuloma without pathologic adenopathy 7. Weight loss PLAN: - her GI symptoms may be related to functional bowel disorder, gall bladder pathology, vs other GI pathology. - I have reviewed her CT abdomen and do not see any signs of oncologic process. - she may benefit from HIDA scan, endoscopy, or gastric motility studies. Ultimately, this can be pursued with GI colleagues. - imaging does show calcified splenic granuloma. She does not have any pathologic adenopathy. I suspect this is related to exposure such as Histoplasmosis, as [place]. - otherwise, she has fibroid in the uterus. Imaging does not show any acute process. - of note, she is behind on colon cancer and breast cancer screening. She would require colonoscopy (or perhaps cologuard) along with mammogram. She will discuss with Dr Demarco upon discharge. - she would also benefit from periodic testing of iron studies, B12 level, vit D level given her gastric bypass. She notes that she takes SL B12 tab daily, and vit D 50K units weekly, which is appropriate. - otherwise, she does not require additional inpatient testing from my perspective. She can be discharged with outpatient follow-up with primary care. She will require GI evaluation, and updated cancer screening as above. We would be happy to see her as an outpatient, if needed in the future. Thank you for the consult. Will follow closely. Thais Arenas MD Hematology Oncology
--- NOTE | 2025-06-08 20:56 | NUTR.NU ---
Diet consult completed. Diet was advanced today from full liquid to low fiber. Pt happy to report everything I ate stayed down. Provided Ways to Increase Nutrient Intakes handout and Ensure coupons. Encouraged pt to include high-quality PRO foods at every meal. Will continue to follow PRN.
[2025-06-09] VITALS (10 sets, daily range): BP systolic 115–136; BP diastolic 74–82; PULSE 75–92; TEMP 36.6–36.7; O2SAT 97–98
[2025-06-09] MEDS: ACETAMINOPHEN 1,000 MG/100 ML PREMIX 400 MG IV ×2 (03:47→11:46)
[2025-06-09] MEDS: TIZANIDINE HCL 4 MG TABLET PO (03:52)
[2025-06-09 05:53] LABS: Hematocrit 33.9 % (36.0-48.0); Hemoglobin 10.9 g/dL (12.0-16.0); Immature Granulocytes Abs Auto 0.01 10^3/uL (0.00-0.03); Immature Granulocytes Pct Auto 0.2 % (0.0-0.5); Lymphocytes Absolute Auto 1.5 10^3/uL (1.2-3.8); Mean Corpuscular HGB Conc 32.2 g/dL (29.9-35.2); Mean Corpuscular Hemoglobin 29.9 pg (26.7-34.0); Mean Corpuscular Volume 93.1 fL (81.0-99.0); Platelet Count 253 10^3/uL (150-450); Red Blood Count 3.64 10^6/uL (4.20-5.40); White Blood Count 5.1 10^3/uL (4.0-11.0)
[2025-06-09 06:13] LABS: Alanine Aminotransferase 16 U/L (14-59); Albumin Globulin Ratio 1.0; Albumin Level 2.9 g/dL (3.4-5.0); Alkaline Phosphatase 112 U/L (46-116); Anion Gap 10.6; Aspartate Amino Transferase 14 U/L (15-37); Blood Urea Nitrogen 4.0 mg/dL (7.0-18.0); Calcium 9.1 mg/dL (8.5-10.1); Carbon Dioxide 28.5 mmol/L (21.0-32.0); Chloride 104 mmol/L (98-107); Estimated GFR (African America >60 (>=60 mL/min/1.73m^2); Estimated GFR (Non-African Ame >60 (>=60 mL/min/1.73m^2); Globulin 3.0 g/dL; Glucose 146 mg/dL (74-106); Magnesium 1.7 mg/dL (1.8-2.4); Potassium 4.1 mmol/L (3.5-5.1); Sodium 139 mmol/L (136-145); Total Protein 5.9 g/dL (6.4-8.2)
[2025-06-09] MEDS: BUPRENORPHINE HCL/NALOXONE HCL 8-2 MG TABLET SUBL 1.5 TAB SL (09:39)
[2025-06-09] MEDS: ESCITALOPRAM 10 MG TABLET 20 MG PO (09:40)
[2025-06-09] MEDS: CEFUROXIME AXETIL 250 MG TABLET 500 MG PO (09:40)
[2025-06-09] MEDS: PANTOPRAZOLE SODIUM 40 MG TABLET.DR PO (09:41)
[2025-06-09] MEDS: HYDROXYZINE HCL 25 MG TABLET PO (09:41)
[2025-06-09] MEDS: POLYETHYLENE GLYCOL 3350 17 GM POWDER PACKET PO (09:41)
[2025-06-09] MEDS: PROCHLORPERAZINE 10 MG/2 ML VIAL 5 MG IV (09:45)
[2025-06-09] MEDS: MAGNESIUM SULFATE IN WATER 2 GM/50 ML PREMIX IV (09:49)
--- NOTE | 2025-06-09 09:50 | CM.NOTE ---
Rounds made with Dr. Soler, pt will discharge to home today. Pt will f/u with [facility]. Pt verbalizes understanding. No other discharge needs identified.
--- NOTE | 2025-06-09 11:44 | PM.DS1 ---
DS: Providers Provider Date of admission: 06/07/25 09:39 Primary care physician: GARY GARCIA Consults: 06/05/25 Consult to Dietitian Routine Reason for consultation: poor appetite 06/08/25 09:18 Consult to Oncology Routine Consulting Provider: Thais Arenas Reason for consultation: granulomatous disease on imaging Anticipated date of discharge: 06/09/25 DS: Diagnosis Discharge Diagnosis (1) Narcotic withdrawal: (2) Nausea & vomiting: Qualifiers: Vomiting type: unspecified Qualified Code(s): R11.2 - Nausea with vomiting, unspecified Plan As above DS: Summary Hospital Course Hospital Course: Mrs. Hightower is a 60-year-old female who came to the emergency room complaining of retching, belching, nausea, 2 episodes of vomiting, feeling that she is going through withdrawal. Patient has been on opiates for the last 20 years for back pain, chronic pain syndrome. Also patient had recently left knee replacement and has been taking Percocet up to 3 to 4 tablets in 24 hours. Patient continues to have pain and discomfort but does not want to take opiates anymore. She decided to stop taking Percocet about 3 days ago. Patient started having nausea followed by vomiting, retching and belching. She related to possible opiates withdrawal. Prior to that, patient tried to take herself off Percocet but was unable to. She was using kratom trying to suppress her opiates craving and withdrawal. She was taking too much of it. Also patient had been feeling depressed and anxious. She saw her primary care doctor who put her on Vraylar. In addition increase her Xanax from 0.5 up to 1 mg twice a day as needed. Patient denies any fever, chills, hematemesis or melena. No abdominal pain. No diarrhea. Plan Suspected opiate withdrawal. Patient has been on opiates for 20 years. She has been using Percocet and kratom recently. Patient stopped taking Percocet 3 days ago. Patient stated that her chronic pain is bad. Patient stated that if she does not take prescribed opiates she will for sure get opiates or any other product from the street. I discussed with patient different options. I discussed with the patient different pharmacological modalities Patient stated that she had gastric bypass in the past and she cannot take morphine or NSAID Patient stated that Tylenol does not help. I talked to patient about Suboxone. She is very interested in trying Suboxone. Hopefully that will help her control her pain and prevent the patient using street drugs I started patient on Suboxone 8 mg twice a day. Hypokalemia and hypomagnesemia Potassium and magnesium supplementation Nausea and vomiting that started after patient stopped Percocet cold turkey Could be related to opiates withdrawal. Her abdomen is benign. Continue symptomatic management hoping that the Suboxone will help improve her GI symptoms. Depression and anxiety. Patient stated that her pain is so bad and cannot live any longer but does not have any suicidal ideation or plan whatsoever. Patient stated that she would never hurt herself. Counseling and education were provided. No active delusion. Anemia, no evidence of acute blood loss. Patient will likely require to have anemia workup to be done in the outpatient setting to be handled by PCP in collaboration with other needed outpatient providers. This may include but not limited to EGD, colonoscopy, referral to see hematology and other needed age-appropriate cancer screening 06/07/2025 patient still complaining of pain and nausea and vomiting. States that regimen is still not enough for her pain to be controlled. Had a lengthy discussion with her in regards to the indications/risks/benefits of pain medications. Explained to her that I am trying to find a good balance for her not to be lethargic and not affecting her breathing/respiratory drive. She understands. After thorough discussion, p.o. Tylenol. IV Tylenol. I added Compazine to help with her nausea and vomiting and increase her promethazine to 25 mg every 6 hour as needed. I switched her lorazepam to 1.5 mg every 12 hours as needed to help her with sleeping at night especially. Patient also was increased on her dose of Suboxone to 1.5 films twice daily. Added to fluids LR at 50 mL/h given her extensive nausea and vomiting. Discussed the plan with her in detail. She is in agreement with all this plan and we will follow-up on her closely. Granulomas were found on the spleen as well as in the right lower lobe of the lung. Discussed the findings with the patient stated that could be not of clinical significance however I will reach out to radiology to confirm and discuss that further. 06/08/2025 patient's pain/nausea/vomiting has significantly improved today. She is happy with the plan that we have. I am continuing her on buprenorphine 1.5 mg sublingual twice daily for now, also continues to be on tizanidine and her lorazepam from home. She is trying clear liquids I advanced a soft diet and we will see how she is doing over the next 24 hours. I will reach out to palliative care as discussed in my previous note so that we can have a pain management outpatient follow-up for her when she leaves the hospital. Also consult oncology given negative MRI disease on her CT on pelvis which I am not sure what significance of that is. Discussed plan with her and she is happy with the plan for now 06/09/2025 patient continues to feel better today. States that the pain is much less than when she first came in. She is able to tolerate food with no nausea and vomiting. She appears to be much more comfortable than I first saw her. I still had a discussion with her regarding oncology recommendations and I urged her to follow-up with her PCP as well as with GI as outpatient. Our hospitalist nurse will help her get those appointments. I also discussed with her that I did speak to Dr. Aguilera, palliative care and pain management doctor at [facility] who kindly gave me guidance in regards to Ms. Hightower's plan of management. He recommends to lower her Suboxone dose to half a tablet twice daily which the patient is agreement with. I will give her a 1 week supply after I confirm with Dr. Aguilera that my NITA allows me to send this medications outpatient. I will give her 1 week worth until she sees her PCP. I urged her to continue her plan with being off other opiates while she is on Suboxone. She understands agrees and she is very appreciative of our efforts Status at Discharge Overall status at discharge: patient is back to baseline Time Spent with Patient Time attestation: Total time spent providing and/or coordinating discharge services: Time spent: greater than 30 minutes Exam Narrative Exam Narrative: pt is awake and alert. oriented to place, time and person, central obesity patient is not in pain compared to yesterday. She is lying in bed very pleasant and cooperative HEENT: [place] conjunctiva and NL buccal mucosa Neck: Supple, no tenderness Endocrine: No Thyromegaly. Vascular: No JVD or carotid bruit. Lymphatic: No cervical lymphadenopathy. Chest: CTA no DTP. Heart RRR, no extra sound or murmur. Abd: Soft, no tenderness, no rebound and no rigidity. No signs of acute abdomen LE: No cyanosis or clubbing, no varices or edema. Left knee does not show signs of infection, warmth, tenderness, or erythema. She does have a midline scar comparable to surgery. No swelling. There is no restricted range of motion. Neuro: A A O. Nl speech, comprehension and attention. Nl and symetrical motor and tone examination through out. Constitutional Vital Signs, click to edit/add: Last Vital Signs Temp 98.0 F 06/09/25 07:54 Pulse 84 06/09/25 09:54 Resp 16 06/09/25 07:54 BP 115/74 06/09/25 07:54 Pulse Ox 97 06/09/25 07:54 O2 Del Method Room Air 06/09/25 07:54 DS: Data Data Completed and Pending Labs on day of discharge: Labs from last 24 hours 06/09/25 05:19 WBC 5.1 RBC 3.64 L Hgb 10.9 L Hct 33.9 L MCV 93.1 MCH 29.9 MCHC 32.2 RDW 15.2 H Plt Count 253 MPV 11.2 Neut % (Auto) 54.6 Lymph % (Auto) 28.4 [place] % (Auto) 10.7 Eos % (Auto) 5.3 Baso % (Auto) 0.8 Neut # (Auto) 2.8 Lymph # (Auto) 1.5 [place] # (Auto) 0.6 Eos # (Auto) 0.3 Baso # (Auto) 0.0 Abs Immat Gran (auto) 0.01 Imm/Tot Granulo (auto) 0.2 Sodium 139 Potassium 4.1 Chloride 104 Carbon Dioxide 28.5 Anion Gap 10.6 BUN 4.0 L Creatinine 0.80 Est GFR ( Amer) >60 Est GFR (Non-Af Amer) >60 BUN/Creatinine Ratio 5.0 Glucose 146 H Calcium 9.1 Magnesium 1.7 L Total Bilirubin 0.4 AST 14 L ALT 16 Alkaline Phosphatase 112 Total Protein 5.9 L Albumin 2.9 L Globulin 3.0 Albumin/Globulin Ratio 1.0 Discharge Plan Discharge Disposition: Home, Self-Care Condition: Good Discharge Medications: New polyethylene glycol 3350 17 gram Powder In Packet 17 g PO QD 10 Days Qty: 14 0RF sennosides-docusate sodium 8.6-50 mg Tablet 1 tab PO QD PRN (Reason: Constipation) 10 Days Qty: 10 0RF buprenorphine-naloxone 8-2 mg Tablet, Sublingual 0.5 tab sublingual BID 7 Days Qty: 7 0RF Continued tizanidine 4 mg tablet 8 mg PO .qhs Rx Instructions: TAKES 2 TABS (8 MG) AT BEDTIME PER PT escitalopram oxalate 20 mg tablet 20 mg PO QDAY cholecalciferol (vitamin D3) 1,250 mcg (50,000 unit) capsule 50,000 unit PO QWEEK Rx Instructions: SATURDAY lorazepam [Ativan] 1 mg tablet 1 mg PO Q12H PRN (Reason: anxiety) tizanidine [Zanaflex] 4 mg tablet 4 mg PO Q8H PRN (Reason: muscle spasticity) pregabalin 50 mg capsule 50 mg PO Q8H hydroxyzine HCl 25 mg tablet 25 mg PO Q8H PRN (Reason: anxiety) pantoprazole 40 mg tablet,delayed release (DR/EC) 40 mg PO DAILY Vraylar 1.5 mg capsule 1.5 mg PO DAILY ondansetron 8 mg tablet,disintegrating 8 mg PO Q8H PRN (Reason: nausea and vomiting) albuterol 90 mcg/actuation aerosol 90 mcg inhalation Q4H PRN (Reason: shortness of breath) Print Language: Japanese Forms: Portal Instructions Follow Up Appointments: Dr. Dav Yo. 06/15 @ 4:45pm [phone] [facility] will be calling the patient to schedule an appt. [phone]
--- NOTE | 2025-06-10 13:21 | PC.NURSE ---
Dr. Aguilera from [facility] [place] [facility] spoke with Dr. Demarco (PCP) and prescribed medication. Patient does not need to be seen at [facility]
--- NOTE | 2025-06-10 16:16 | CM.DCFOLLOWU ---
Person spoke with:patient How are you feeling?well How is your pain? none Did you understand your discharge instructions? yes Do you have any questions about your discharge instructions? no Were you given any prescriptions at discharge?yes Were you able to get your prescriptions filled?yes Do you understand how to take your medications as ordered?yes Do you have any questions about your follow up appointment and do you plan to keep your follow up appointment? no questions at this time. Reviewed follow ups Is there anything else that you would like to discuss?no Questions/Comments/Concerns/Other:none
== END 2025-06-09 13:18 | disposition home or self-care (01) | DRG 897 ==
LOC: ER 15:32 → MS 17:38
PROVIDERS: Admitting Provider Internal Medicine; Emergency Provider Emergency Medicine; PCP Family Medicine; Visit Provider Student in an Organized Health Care Education/Training Program
DX: F11.23 Opioid dependence with withdrawal (principal); R11.2 Nausea with vomiting, unspecified; Z98.84 Bariatric surgery status; E87.6 Hypokalemia; E83.42 Hypomagnesemia; Z96.652 Presence of left artificial knee joint; F32.A Depression, unspecified; F41.9 Anxiety disorder, unspecified; D64.9 Anemia, unspecified; T40.2X5A Adverse effect of other opioids, initial encounter; E66.89 Other obesity not elsewhere classified; K80.20 Calculus of gallbladder without cholecystitis without obstruction; G89.4 Chronic pain syndrome; R63.4 Abnormal weight loss; Z68.31 Body mass index [BMI] 31.0-31.9, adult; D71.8 Other functional disorders of polymorphonuclear neutrophils
CPT/HCPCS: 36415; 71045; 74176; 80048; 80053; 80076; 80307; 80320; 81001; 83036; 83690; 83735; 84100; 84443; 84484; 85025; 86140; 87086; 93005; 96361; 96365; 96367; 96372; 96375; 96376; 99285; G0378; J0131; J0360; J0500; J0574; J0696; J0780; J1650; J1885; J2060; J2405; J2550; J2765; J3360; J3475

== ENCOUNTER 2025-06-26 16:05 | Emergency (ER) | payer OTHER, SELFPAY ==
--- OUTSIDE RECORDS SUMMARY | 2025-06-17 14:15 | XMS_ITS | Encounter Summary ---
Author Organization [facility] Address [address] [place] [address] Phone Care Team Providers Care Truck Safety Inspector Name Role Phone Unavailable Primary Care Provider Unavailabl e Reason for Referral * Imaging (Routine) - AuthorizedSpecialtyDiagnoses / ProceduresReferred By ContactReferred To ContactRadiology Diagnoses Nausea and vomiting, unspecified vomiting type Procedures US gallbladder Karla Robles DO [address] [facility], [place] [address] Phone: tel: fax: Referral IDStatusReasonStart DateExpiration DateVisits RequestedVisits [id number] Perform Procedure / * Endoscopy (Routine) - AuthorizedSpecialtyDiagnoses / ProceduresReferred By ContactReferred To ContactGastroenterology Diagnoses Nausea and vomiting, unspecified vomiting type History of Clau-en-Y gastric bypass Dysphagia, unspecified type Procedures Esophagogastroduodenoscopy (EGD) MO ESOPHAGOGASTRODUODENOSCOPY TRANSORAL DIAGNOSTIC MO EGD TRANSORAL BIOPSY SINGLE/MULTIPLE Karla Robles DO [address] [facility], [place] [address] Phone: tel: fax: Referral IDStatusMarshaasonStart DateExpiration DateVisits RequestedVisits [id number] Reason for Visit * ReasonCommentsNew Patient VisitNPV in office hx of gastric bypas approx 10 years ago. N/V started about a year ago. Occ dysphagia worse with grain drier food. EGD before gastric bypass. No prior colonoscopy. Recent CT at [facility] showed gallstones. Encounter Details DateTypeDepartmentCare Team (Latest Contact Info)Jfyastjerev82/18/2025 2:15 PM ESTOffice Visit [facility] [address] [place] [address] Karla Robles DO [address] [facility] [place] [address] Constipation, unspecified constipation type (Primary Dx); Nausea and vomiting, unspecified vomiting type; History of Clau-en-Y gastric bypass; Dysphagia, unspecified type Discharge Disposition: Home Social History Tobacco UseTypesPacks/DayYears UsedDateSmoking Tobacco: FormerCigarettes Smokeless Tobacco: Never Tobacco Cessation:Counseling Given: Not Answered Alcohol UseStandard Drinks/WeekCommentsNot Currently0 (1 standard drink = 0.6 oz pure alcohol)occCommentsUnknownSex and Gender InformationValueDate RecordedSex Assigned at BirthNot on fileLegal DsrYdvcig32/15/2025 12:04 PM EST Gender IdentityNot on fileSexual OrientationNot on filedocumented as of this encounter Last Filed Vital Signs Vital SignReadingTime TakenCommentsBlood Gmupiaht658/8506/17/2025 2:34 PM EST Vzzjg1395/18/2025 2:34 PM ESTTemperature--Respiratory Kalr946608/18/2024 2:34 PM ESTOxygen Rpcvjkvctg46%06/17/2025 2:34 PM ESTInhaled Oxygen Concentration-- Xgjecq30.6 kg (213 lb)06/17/2025 2:34 PM CXTFohvzh727.7 cm (5' 8 )06/17/2025 2:34 PM ESTBody Mass Index32.39108/18/2024 2:34 PM ESTdocumented in this encounter Functional Status * PulseAnswerDate of YwpsyuanyhCepicc7527/18/2025 2:34 PM Frederick Daily MA documented as of this encounter Progress Notes * Karla Robles, DO - 06/17/2025 2:15 PM EST Subjective Patient ID: Sakshi Hightower is a 60 y.o. female who presents for New Patient Visit (NPV in office hx of gastric bypas approx 10 years ago. N/V started about a year ago. Occ dysphagia worse with grain drier food. EGD before gastric bypass. No prior colonoscopy. Recent CT at [facility] showed ga llstones.). TESHA Mills is a pleasant 60-year-old female underwent Clau-en-Y gastric bypass at [facility] at age 50. Lost approximately 80 pounds with surgery. Recent total knee arthroplasty at [facility] 6 months ago increasing symptoms of reflux nausea over the last 6 months worsening over the last 2 months to the point where she is regurgitating all solid foods. Is able to get liquids down and protein shakes. Admits to 30 pound weight loss in the last 2 months. Denies any hematemesis no melena. Patient had CT scan recently at [facility] showing gallstones. No follow-up imaging was ordered. She denies any other symptoms. Is on buprenorphine to get off narcotics is currently on Reglan which caused side effects of shakiness does find Compazine helps her nausea along with Zofran. Despite this this does not improve her vomiting. Review of Systems Constitutional: Negative for chills, fever and unexpected weight change. HENT: Negative for congestion and trouble swallowing. Respiratory: Negative for cough, shortness of breath and wheezing. Cardiovascular: Negative for chest pain. Gastrointestinal: Negative for abdominal distention, abdominal pain, blood in stool, constipation, diarrhea, nausea and vomiting. Genitourinary: Negative for difficulty urinating. Musculoskeletal: Negative for arthralgias and joint swelling. Skin: Negative for color change. Neurological: Negative for dizziness, speech difficulty, light-headedness and headaches. Psychiatric/Behavioral: Negative for confusion and sleep disturbance. Objective Physical Exam Constitutional: General: She is awake. Appearance: Normal appearance. HENT: Head: Normocephalic and atraumatic. Mouth/Throat: Mouth: Mucous membranes are moist. Eyes: Extraocular Movements: Extraocular movements intact. Cardiovascular: Rate and Rhythm: Normal rate and regular rhythm. Heart sounds: Normal heart sounds. Pulmonary: Effort: Pulmonary effort is normal. No respiratory distress. Breath sounds: Normal air entry. No wheezing or rhonchi. Abdominal: General: Bowel sounds are normal. There is no distension. Palpations: Abdomen is soft. Tenderness: There is no abdominal tenderness. Musculoskeletal: Cervical back: Full passive range of motion without pain. Right lower leg: No edema. Left lower leg: No edema. Skin: General: Skin is warm. Neurological: General: No focal deficit present. Mental Status: She is alert and oriented to person, place, and time. Mental status is at baseline. Motor: Motor function is intact. Psychiatric: Attention and Perception: Attention and perception normal. Mood and Affect: Mood normal. Speech: Speech normal. Behavior: Behavior normal. Assessment/Plan Diagnoses and all orders for this visit: Constipation, unspecified constipation type - prucalopride 2 mg tablet; Take 1 tablet (2 mg) by mouth once daily. Nausea and vomiting, unspecified vomiting type - Esophagogastroduodenoscopy (EGD); Future - US gallbladder; Future - prochlorperazine (Compazine) 10 mg tablet; Take 1 tablet (10 mg) by mouth every 6 hours if needed for nausea or vomiting for up to 7 days. History of Clau-en-Y gastric bypass - Esophagogastroduodenoscopy (EGD); Future Dysphagia, unspecified type - Esophagogastroduodenoscopy (EGD); Future Recommend EGD to exclude marginal ulceration or anastomotic ulcer or stricture. Proceed with gallbladder ultrasound follow-up on stones noted in gallbladder on CT scan. Will peyton Compazine for nauseause Zofran first. Advised her to begin Motegrity for constipation and off-label use for gastroparesis. Will follow-up after endoscopy and ultrasound Karla Robles DO 06/17/25 2:46 PM documented in this encounter Plan of Treatment Not on file documented as of this encounter Results * Esophagogastroduodenoscopy (EGD) (06/21/2025 9:46 AM EST)Anatomical Region LateralityModalityEchocardiographySpecimen (Source)Anatomical Location / LateralityCollection Method / VolumeCollection TimeReceived Time Addenda Addendum by Karla Robles DO on 06/21/2025 11:38 AM EST Table formatting from the original result was not included. Impression Ulcer in the enteroenterostomy with clean base (Geoff III) Performed forceps biopsies in the Clau limb to rule out celiac disease and H. pylori. Performed forceps biopsies in the gastric pouch to rule out H. pylori. Performed forceps biopsies in the GE junction to rule out Peace's esophagus. Findings Ulcer in the enteroenterostomy with clean base (Geoff III) Performed forceps biopsies in the Clau limb to rule out celiac disease and H. pylori. Performed forceps biopsies in the gastric pouch to rule out H. pylori. Performed forceps biopsies in the GE junction to rule out Peace's esophagus. Recommendation Follow up with me in clinic Indication Nausea and vomiting, unspecified vomiting type History of Clau-en-Y gastric bypass Dysphagia, unspecified type Post-Op Diagnosis None Staff Staff Role Karla Robles DO Proceduralist Medications See Anesthesia Record. Preprocedure A history and physical has been performed, and patient medication allergies have been reviewed. The patient's tolerance of previous anesthesia has been reviewed. The risks and benefits of the procedure and the sedation options and risks were discussed with the patient and patient's partner. All questions were answered and informed consent obtained. Details of the Procedure The patient underwent monitored anesthesia care, which was administered by an anesthesia professional. The patient's blood pressure, ECG, ETCO2, heart rate, level of consciousness, oxygen and respirations were monitored throughout the procedure. The scope was introduced into the mouth through a bite block and advanced to the second part of the duodenum. Retroflexion was performed in the cardia. Prior to the procedure, the patient's H. Pylori status was unknown. The patient experienced no blood loss. The procedure was not difficult. The patient tolerated the procedure well. There were no apparent adverse events. Events Procedure Events Event Event Time ENDO SCOPE IN TIME 06/21/2025 ??9:37 AM ENDO SCOPE OUT TIME 06/21/2025 ??9:43 AM Specimens ID Type Source Tests Collected by Time 1 : antrum bx Tissue STOMACH ANTRUM BIOPSY SURGICAL PATHOLOGY EXAM Karla Robles, DO 06/21/2025 0938 2 : duodenum bx Tissue DUODENUM SECOND PART BIOPSY SURGICAL PATHOLOGY EXAM Karla Robles, DO 06/21/2025 0938 3 : distal esophagus bx Tissue ESOPHAGUS DISTAL BIOPSY SURGICAL PATHOLOGY EXAM Karla Margareth Robles, DO 06/21/2025 0938 Procedure Location [facility] [place] [address] [place] [address] Referring Provider Karla Robles DO Procedure Provider Karla Robles DO Narrative Authorizing ProviderResult TypeResult StatusDale Margareth Robles DOENDOSCOPY PROCEDURE ORDERABLESEdited Result - Final * US gallbladder (06/21/2025 9:25 AM EST)Anatomical RegionLateralityModalityGall bladderUltrasoundSpecimen (Source)Anatomical Location / LateralityCollection Method / VolumeCollection TimeReceived Time06/21/2025 1:48 PM EST06/21/2025 1:48 PM EST Impressions 06/21/2025 1:46 PM EST Dilated gallbladder with biliary sludge and nonshadowing echogenic foci in the dependent portion of the gallbladder. ?? MACRO: None ?? Signed by: Cameron Phelan 06/21/2025 1:46 PM Dictation workstation: ?? [id number] Narrative 06/21/2025 1:46 PM EST Interpreted By: Cameron Phelan, STUDY: US GALLBLADDER; ??06/21/2025 9:25 am ?? INDICATION: Signs/Symptoms:N/V s/p gastric bypass. Gallstones. ?? COMPARISON: None. ?? ACCESSION NUMBER(S): [id number] ?? ORDERING CLINICIAN: KARLA ROBLES ?? TECHNIQUE: Multiple images of the right upper quadrant were obtained. ?? FINDINGS: LIVER: The liver measures 15 cm, with normal echogenicity. No mass lesion. Portal vein is patent. ?? GALLBLADDER: The gallbladder is globular in appearance and enlarged. Biliary sludge is present. There are nonshadowing echogenic foci also present within the biliary sludge. No pericholecystic edema. The wall thickness is 2 mm. ?? BILE DUCTS: No evidence of intra or extrahepatic biliary dilatation is identified; the common bile duct measures 5 mm. ?? PANCREAS: The pancreas is poorly visualized due to overlying bowel gas. ?? RIGHT KIDNEY: The right kidney measures 11.8 cm in length. The renal cortical echogenicity and thickness are within normal limit. ??No hydronephrosis or renal calculi are seen. ?? Procedure Note Cameron Phelan MD - 06/21/2025 Interpreted By: Cameron Phelan, STUDY: US GALLBLADDER; 06/21/2025 9:25 am INDICATION: Signs/Symptoms:N/V s/p gastric bypass. Gallstones. COMPARISON: None. ACCESSION NUMBER(S): [id number] ORDERING CLINICIAN: KARLA ROBLES TECHNIQUE: Multiple images of the right upper quadrant were obtained. FINDINGS: LIVER: The liver measures 15 cm, with normal echogenicity. No mass lesion. Portal vein is patent. GALLBLADDER: The gallbladder is globular in appearance and enlarged. Biliary sludge is present. There are nonshadowing echogenic foci also present within the biliary sludge. No pericholecystic edema. The wall thickness is 2 mm. BILE DUCTS: No evidence of intra or extrahepatic biliary dilatation is identified; the common bile duct measures 5 mm. PANCREAS: The pancreas is poorly visualized due to overlying bowel gas. RIGHT KIDNEY: The right kidney measures 11.8 cm in length. The renal cortical echogenicity and thickness are within normal limit. No hydronephrosis or renal calculi are seen. IMPRESSION: Dilated gallbladder with biliary sludge and nonshadowing echogenic foci in the dependent portion of the gallbladder. MACRO: None Signed by: Cameron Phelan 06/21/2025 1:46 PM Dictation workstation: [id number] Authorizing ProviderResult TypeResult StatusDaleonor Robles [facility] US PROCEDURES Final Result documented in this encounter Visit Diagnoses Diagnosis Constipation, unspecified constipation type- Primary Nausea and vomiting, unspecified vomiting type History of Clau-en-Y gastric bypass Dysphagia, unspecified type Nausea and vomiting, unspecified vomiting type Chronic marginal ulcer- Primary Nausea and vomiting, unspecified vomiting type History of Clau-en-Y gastric bypass Dysphagia, unspecified type documented in this encounter
--- OUTSIDE RECORDS SUMMARY | 2025-06-21 07:56 | XMS_ITS | Encounter Summary ---
Author Organization [facility] Address [address] [place] [address] Phone Care Team Providers Care Clinic Md Associate Name Role Phone Valentinaaimee Jimmie Rochelle EMERSON Primary Care Provider + [phone] Reason for Referral * Imaging (Routine) - AuthorizedSpecialtyDiagnoses / ProceduresReferred By ContactReferred To ContactRadiology Diagnoses Nausea and vomiting, unspecified vomiting type Procedures US gallbladder Karla Robles DO [address] [facility], [facility] [address] [place] [address] Phone: tel: fax: Referral IDStatusReasonStart DateExpiration DateVisits RequestedVisits [id number] Perform Procedure Reason for Visit * Imaging (Routine) - AuthorizedSpecialtyDiagnoses / ProceduresReferred By ContactReferred To ContactRadiology Diagnoses Nausea and vomiting, unspecified vomiting type Procedures US gallbladder Karla Robles DO [address] [facility], [facility] [address] [place] [id number] Phone: tel: fax: Referral IDStatusReasonStart DateExpiration DateVisits RequestedVisits [id number] Perform Procedure Encounter Details DateTypeDepartmentCare Team (Latest Contact Info)Djgfgfgcchz51/22/2025 7:56 AM EST - 06/21/2025 7:58 AM ESTHospital Encounter [facility] [address] [place] [address] Nausea and vomiting, unspecified vomiting type Discharge Disposition: Home Social History Tobacco UseTypesPacks/DayYears UsedDateSmoking Tobacco: FormerCigarettes Smokeless Tobacco: NeverAlcohol UseStandard Drinks/WeekCommentsNot Currently0 (1 standard drink = 0.6 oz pure alcohol)occCommentsUnknownSex and Gender InformationValueDate RecordedSex Assigned at BirthNot on fileLegal SexFemale 06/14/2025 12:04 PM ESTGender IdentityNot on fileSexual OrientationNot on file documented as of this encounter Medications at Time of Discharge MedicationSigDispense QuantityRefillsLast FilledStart DateEnd Date buprenorphine-naloxone (Suboxone) 8-[address] 1 Film under the tongue once daily.06/07/2025 busPIRone (Buspar) 15 mg tablet Take by mouth 2 times a day. cariprazine (Vraylar) 1.5 mg capsule Take 1 capsule (1.5 mg) by mouth once daily.05/18/2025 cholecalciferol (Vitamin D-3) 1.25 mg (50,000 units) capsule Take 1 capsule (1.25 mg) by mouth 1 (one) time per week.08/22/2023 escitalopram (Lexapro) 20 mg tablet Take 1 tablet (20 mg) by mouth once daily.08/02/2019 LORazepam (Ativan) 1 mg tablet Take 1 tablet (1 mg) by mouth twice a day.06/03/2025 ondansetron (Zofran) 8 mg tablet Take 1 tablet (8 mg) by mouth every 8 hours if needed for nausea or vomiting. pregabalin (Lyrica) 50 mg capsule Take 1 capsule (50 mg) by mouth 3 times a day.04/26/2025 prucalopride 2 mg tablet Indications:Constipation, unspecified constipation typeTake 1 tablet (2 mg) by mouth once daily. 30 tablet tiZANidine (Zanaflex) 4 mg tablet 1 tablet (4 mg).02/26/2024 prochlorperazine (Compazine) 10 mg tablet Indications:Nausea and vomiting, unspecified vomiting typeTake 1 tablet (10 mg) by mouth every 6 hours if needed for nausea or vomiting for up to 7 days. 30 tablet documented as of this encounter Plan of Treatment Not on file documented as of this encounter Procedures Procedure NamePriorityDate/TimeAssociated DiagnosisCommentsUS GALLBLADDERRoutine 06/21/2025 9:25 AM EST Nausea and vomiting, unspecified vomiting type documented in this encounter Results * US gallbladder (06/21/2025 9:25 AM EST)Anatomical RegionLateralityModalityGall bladderUltrasoundSpecimen (Source)Anatomical Location / LateralityCollection Method / VolumeCollection TimeReceived Time06/21/2025 1:48 PM EST06/21/2025 1:48 PM EST Impressions 06/21/2025 1:46 PM EST Dilated gallbladder with biliary sludge and nonshadowing echogenic foci in the dependent portion of the gallbladder. ?? MACRO: None ?? Signed by: Cameron Phelan 06/21/2025 1:46 PM Dictation workstation: ?? [id number] Narrative 06/21/2025 1:46 PM EST Interpreted By: Cameron Phelan, STUDY: US GALLBLADDER; ??06/21/2025 9:25 am ?? INDICATION: Signs/Symptoms:N/V s/p gastric bypass. Gallstones. ?? COMPARISON: None. ?? ACCESSION NUMBER(S): [id number] ?? ORDERING CLINICIAN: KARLA ROBLES ?? TECHNIQUE: [...] gastric bypass. Gallstones. COMPARISON: None. ACCESSION NUMBER(S): [id number] ORDERING CLINICIAN: KARLA ROBLES TECHNIQUE: Multiple images [...] Cameron Phelan 06/21/2025 1:46 PM Dictation workstation: [id number] Authorizing ProviderResult TypeResult StatusDaleonor Robles DOI US PROCEDURES Final Result documented in this encounter Visit Diagnoses Diagnosis Nausea and vomiting, unspecified vomiting type documented in this encounter Care Teams Team MemberRelationshipSpecialtyStart DateEnd Date Jimmie Demarco DO [address] [facility], [place] [address] PCP - GeneralFamily Dampiyre48/22/25documented as of this encounter
--- OUTSIDE RECORDS SUMMARY | 2025-06-21 07:59 | XMS_ITS | Encounter Summary ---
Author Organization [facility] Address [address] [place] [address] Phone Care Team Providers Care Agricultural Sciences Professor Name Role Phone Valentinaaimee Jimmie Byrd Primary Care Provider + [phone] Reason for Referral * Clinic-Administered Medication (Routine) - Pending ReviewSpecialtyDiagnoses / ProceduresReferred By ContactReferred To Contact Marcelino Corral MD [address] [place] [address] Phone: tel: fax: Referral IDStatusReasonStart DateExpiration DateVisits RequestedVisits [id number] * Endoscopy (Routine) - AuthorizedSpecialtyDiagnoses / ProceduresReferred By ContactReferred To ContactGastroenterology Diagnoses Nausea and vomiting, unspecified vomiting type History of Clau-en-Y gastric bypass Dysphagia, unspecified type Procedures Esophagogastroduodenoscopy (EGD) LA ESOPHAGOGASTRODUODENOSCOPY TRANSORAL DIAGNOSTIC LA EGD TRANSORAL BIOPSY SINGLE/MULTIPLE Malik Robles DO [address] [facility], [place] [address] Phone: tel: fax: Referral IDStatusReasonStart DateExpiration DateVisits RequestedVisits [id number]/18/202512/18/202611 Reason for Visit * Endoscopy (Routine) - AuthorizedSpecialtyDiagnoses / ProceduresReferred By ContactReferred To ContactGastroenterology Diagnoses Nausea and vomiting, unspecified vomiting type History of Clau-en-Y gastric bypass Dysphagia, unspecified type Procedures Esophagogastroduodenoscopy (EGD) LA ESOPHAGOGASTRODUODENOSCOPY TRANSORAL DIAGNOSTIC LA EGD TRANSORAL BIOPSY SINGLE/MULTIPLE Malik Robles DO [address] [place] [address] Phone: tel: fax: Referral IDStatusReasonStart DateExpiration DateVisits RequestedVisits [id number]/18/202512/18/202611 Encounter Details DateTypeDepartmentCare Team (Latest Contact Info)Xwfydzmbkgp75/22/2025 7:59 AM EST - 06/21/2025 11:59 PM ESTHospital Encounter [facility] OR [address] [place], [place] [id number] Malik Robles DO [address] [place] [address] Marcelino Corral MD [address] [place] [address] Chronic marginal ulcer (Primary Dx); Nausea and vomiting, unspecified vomiting [...] on file documented as of this encounter Last Filed Vital Signs Vital SignReadingTime TakenCommentsBlood Vkdfhdsl966/7506/21/2025 11:00 AM EST Zxqyi009906/21/2025 11:00 AM QBFMfewsrigavo43.7 ??C (98.1 ??F)06/21/2025 11:00 AM ESTRespiratory Rwgn220508/22/2024 11:00 AM ESTOxygen Pftyoxuzvi24%06/21/2025 11:00 AM ESTInhaled Oxygen Concentration--Eyogyl30.4 kg (208 lb 1.8 oz)06/21/2025 8:58 AM SWEOgkdmt267 cm (5' 8.11 )06/21/2025 8:58 AM ESTBody Mass Index31.54 06/21/2025 8:58 AM ESTdocumented in this encounter Functional Status * Vital SignsQuestionAnswerDate of FlliujztjkWvmezzWyugp8712/22/2025 11:00 AM Agustina Gauthier RN * Medical Gas TherapyQuestionAnswerDate of AssessmentAuthorMedical Gas Delivery MethodNasal jcygmmk8206/21/2025 9:35 AM Heidi Obrien, SANTINO * Garcia Fall RiskQuestionAnswerDate of AssessmentAuthorHistory of Falling, Immediate or Within 3 Qjyaqi833 9:04 AM Inna Garvey RN Secondary Rsgxtjmll982/22/2025 9:04 AM Inna Garvey, RNAmbulatory Aid 9:04 AM Inna Garvey RNIntravenous Therapy/Heparin Lock0 06/21/2025 9:04 AM Inna Garvey RNGait/Ffktxuvdkvyl336/22/2025 9:04 AM Inna Garvey RNMental Dznvlt835 9:04 AM Inna Garvey RNMorse Fall Risk Iudkv962 9:04 AM Inna Garvey RN * Curt ScaleQuestionAnswerDate of AssessmentAuthorSensory Perceptions4 06/21/2025 9:01 AM Inna Garvey RNMoisture4108/22/2024 9:01 AM Inna Zepeda UFZslasomg844/22/2025 9:01 AM Inna Garvey RN Welcubfr706/22/2025 9:01 AM Inna Garvey RNNutrition4108/22/2024 9:01 AM Inna Garvey, RNFriction and Ikiod62208/22/2024 9:01 AM Inna Zepeda RNBraden Scale Vgkfv3656/22/2025 9:01 AM Inna Garvey RN * Abuse ScreenQuestionAnswerDate of AssessmentAuthorDo you feel UNSAFE going back to the place where you live?No06/21/2025 8:57 AM Inna Garvey RNAre there any apparent signs of injuries/behaviors that could be related to abuse/neglect?No06/21/2025 8:57 AM Inna Garvey RNAsk parent or guardian: Are there times when you, your child(viry), or any member of your household feel unsafe, harmed, or threatened around persons with whom you know or live?No06/21/2025 8:57 AM Inna Garvey RNHave you had any thoughts of harming anyone else?06/21/2025 8:57 AM Inna Garvey RN * Ask Suicide-Screening QuestionsQuestionAnswerDate of AssessmentAuthor1. In the past few weeks, have you wished you were ?06/21/2025 9:05 AM Inna Zepeda RN2. In the past few weeks, have you felt that you or your family would be better off if you were ?No06/21/2025 9:05 AM Inna Zepeda RN3. In the past week, have you been having thoughts about killing yourself?No06/21/2025 9:05 AM Inna Garvey RN4. Have you ever tried to kill yourself?No06/21/2025 9:05 AM Inna Garvey RN5. Are you having thoughts of killing yourself right now?No06/21/2025 9:05 AM EST Inna Kumar RNCalculated Risk ScoreNo intervention is necessary at this time06/21/2025 9:05 AM Inna Garvey RN documented as of this encounter Mental Status * NeurologicalQuestionAnswerEntry DateAuthorCognitionAppropriate judgement;Appropriate safety uefyfxkyz47/22/2025 11:00 AM Agustina Gauthier RN * Feature 3: Altered Level of ConsciousnessAnswerEntry DateAuthorNegative 06/21/2025 11:00 AM Agustina Gauthier RN documented in this encounter Discharge Instructions * Discharge Instructions* Agustina Castaneda RN - 06/21/2025 9:55 AM EST SEE ESOPHAGOGASTRODUODENOSCOPY FORM PROVIDED Patient Instructions after an endoscopy or colonoscopy The anesthetics, sedatives or narcotics which were given to you today will be acting in your body for the next 24 hours, so you might feel a little sleepy or groggy. This feeling should slowly wear off. Carefully read and follow the instructions. You received sedation today: - Do not drive or operate any machinery or power tools of any kind. - No alcoholic beverages today, not even beer or wine. - Do not make any important decisions or sign any legal documents. - No over the counter medications that contain alcohol or that may cause drowsiness. - Do not make any important decisions or sign any legal documents. While it is common to experience mild to moderate abdominal distention, gas, or belching after yourprocedure, if any of these symptoms occur following discharge from the GI Lab or within one week ofhaving your procedure, call the [facility] to be advised whether a visit to your nearest Urgent Care or Emergency Department is indicated. Take this paper with you if you go. - If you develop an allergic reaction to the medications that were given during your procedure suchas difficulty breathing, rash, hives, severe nausea, vomiting or lightheadedness.- If you experience chest pain, shortness of breath, severe abdominal pain, fevers and chills. -If you develop signs and symptoms of bleeding such as blood in your spit, if your stools turn black, tarry, or bloody - If you have not urinated within 8 hours following your procedure.- If your IV site becomes painful, red, inflamed, or looks infected. documented in this encounter Medications at Time of Discharge [...] hours if needed for nausea or vomiting. pantoprazole (ProtoNix) 40 mg EC tablet Indications:Chronic marginal ulcerTake 1 tablet (40 mg) by mouth 2 times a day. 60 tablet pregabalin (Lyrica) 50 mg capsule Take 1 [...] 30 tablet documented as of this encounter H&P Notes * Malik Robles DO - 06/21/2025 12:30 PM EST H&P reviewed. The patient was examined and there are no changes to the H&P. Source Note - Malik Robles DO - 06/17/2025 2:15 PM EST Subjective Patient ID: Sakshi Hightower is a 60 y.o. female who presents for New Patient Visit (NPV in office hx of gastric bypas approx 10 years ago. N/V started about a year ago. Occ dysphagia worse with leather drier food. EGD before gastric bypass. No prior colonoscopy. Recent CT at [facility] showed ga llstones.). TESHA Mills is a pleasant 60-year-old female underwent Clau-en-Y gastric bypass at [facility] at age 50. Lost approximately 80 pounds with surgery. Recent total knee arthroplasty at [facility] 6 months ago increasing symptoms of reflux nausea over the last 6 months worsening over the last 2 months to the point where she is regurgitating all solid foods. Is able to get liquids down and protein shakes. Admits to 30 pound weight loss in the last 2 months. Denies any hematemesis no melena. Patient had CT scan recently at [facility] showing gallstones. No follow-up imaging was ordered. [...] mg) by mouth every 6 hours if neededfor nausea or vomiting for up to 7 [...] gastroparesis. Will follow-up after endoscopy and ultrasound Malik Robles DO 06/17/25 2:46 PM documented in this encounter Plan of Treatment NameTypePriorityAssociated DiagnosesDate/TimeSurgical Pathology ExamPathology and CytologyRoutine Nausea and vomiting, unspecified vomiting type History of Clau-en-Y gastric bypass Dysphagia, unspecified type 06/21/2025 9:38 AM ESTNameTypePriorityAssociated DiagnosesOrder ScheduleSurgical Pathology ExamPathology and CytologyTimed Nausea and vomiting, unspecified vomiting type History of Clau-en-Y gastric bypass Dysphagia, unspecified type Release Upon Ordering for 1 Occurrences starting 06/21/2025, 1 completed documented as of this encounter Procedures Procedure NamePriorityDate/TimeAssociated LiuavwyhiMrgkesluKMWRkcmzve27/22/2025 9:46 AM EST Nausea and vomiting, unspecified vomiting type History of Clau-en-Y gastric bypass Dysphagia, unspecified type documented in this encounter Results * Esophagogastroduodenoscopy (EGD) (06/21/2025 9:46 AM EST)Anatomical Region LateralityModalityEchocardiographySpecimen (Source)Anatomical Location / LateralityCollection Method / VolumeCollection TimeReceived Time Addenda Addendum by Malik Robles DO on 06/21/2025 11:38 AM EST [...] type Post-Op Diagnosis None Staff Staff Role Malik Robles DO Proceduralist Medications See Anesthesia Record. [...] Tissue STOMACH ANTRUM BIOPSY SURGICAL PATHOLOGY EXAM Malik Robles DO 06/21/2025 0938 2 : duodenum bx Tissue DUODENUM SECOND PART BIOPSY SURGICAL PATHOLOGY EXAM Malik Robles DO 06/21/202538 3 : distal esophagus bx Tissue ESOPHAGUS DISTAL BIOPSY SURGICAL PATHOLOGY EXAM Malik Robles DO 06/21/2025 0938 Procedure Location [facility] OR [address] [place] [phone] Referring Provider Malik Robles DO Procedure Provider Malik Robles DO Narrative Authorizing ProviderResult TypeResult StatusDale Margareth Robles DOENDOSCOPY PROCEDURE ORDERABLESEdited Result - Final documented in this encounter Visit Diagnoses Diagnosis Chronic marginal ulcer- Primary Nausea and vomiting, unspecified vomiting type History of Clau-en-Y gastric bypass Dysphagia, unspecified type documented in this encounter Administered Medications Medication OrderMAR ActionAction DateDoseRateSite bpmoqxss-lnxzzmlgaw-uwzpzwiolx (Cetacaine) spray As needed, Starting on Sat06/21/25 at 0937, Intraprocedure Given06/21/2025 9:37 AM EST2 sprays lactated Ringer's infusion 100 mL/hr, intravenous, Continuous, Starting on Sat06/21/25 at 0930, For 1 day, Preprocedure Continued from OR06/21/2025 9:47 AM ZNL778 mL/hr100 mL/hrNew Bag06/21/2025 9:14 AM CXL636 mL/hr100 mL/hr ondansetron (Zofran) injection 4 mg 4 mg, intravenous, Once, On Sat06/21/25 at 0930, For 1 dose, Preprocedure, When administering via IV Push, administer over 3-5 minutes. Given06/21/2025 9:13 AM EST4 mgdocumented in this encounter Care Teams Team MemberRelationshipSpecialtyStart DateEnd Date Jimmie Demarco DO [address] [facility] [place] [address] PCP - GeneralFamily Oenadsox34/22/25documented as of this encounter
--- OUTSIDE RECORDS SUMMARY | 2025-06-21 09:33 | XMS_ITS | Encounter Summary ---
Author Organization [facility] Address [address] [place] [address] Phone Care Team Providers Care Core Shaper Name Role Phone Jimmie Demarco DO Primary Care Provider + [phone] Encounter Details DateTypeDepartmentCare Team (Latest Contact Info)Uxbzsrxzubk83/22/2025 9:33 AM ESTAnesthesia Event [facility] OR [address] [place] [address] Marcelino Corral MD [facility] [place] [address] Anesthesia Record Procedure NameResponsible AnesthesiologistAnesthesia Start TimeAnesthesia Stop TimeEGDPauelizabeth Corral MD06/21/25 94920906/21/25 7945QklvSacuWzggdOcanzuy50/22/2025 08094920Pp Lhkg4993Kw Lpwur1648Nq Start Aozh2215Vq InductionThe patient was reevaluated immediately before moderate or deep sedation use and before anesthesia induction.0946Out of Dlrj1444Vx Xczv0391xr stop jcit0700Rsqlgvz to ReceivingI completed my handoff to the receiving clinician during which we: 1. Identified the patient 2. Identified the responsible provider 3. Reviewed the pertinent medical history 4. Discussed the surgicalcourse 5. Reviewed intra-op anesthesia management and issues during anesthesia 6. Set expectations for post- procedure period 7. Allowed opportunity for questions and acknowledgement of understanding.* NameTotalpropofol 10 mg/mL60 mgmidazolam 1 mg/mL2 mglidocaine PF 10 mg/mL (1 %)3 mL * Agents Name O2 N2O Inspired N2O * Blood No blood administrations on file. TypeDetailsPlacementRemovalPeripheral IVPlacement Date: 06/21/25; Placement Time: 907; Catheter Size: 20 G; Orientation: Right; Location: Antecubital; Site Prep: Chlorhexidine ; Inserted by: alex; Patient Tolerance: Age appropriate; Removal Date: 06/21/25; Removal Time: 1046; Removal Reason: No longer clinically vryfcktgq83/22/25 09 by Inna Kumar RN06/21/25 104 by Agustina Castaneda RN documented in this encounter Social History Tobacco UseTypesPacks/DayYears UsedDateSmoking Tobacco: FormerCigarettes Smokeless Tobacco: NeverAlcohol UseStandard Drinks/WeekCommentsNot Currently0 (1 standard drink = 0.6 oz pure alcohol)occCommentsUnknownSex and Gender InformationValueDate RecordedSex Assigned at BirthNot on fileLegal SexFemale 06/14/2025 12:04 PM ESTGender IdentityNot on fileSexual OrientationNot on file documented as of this encounter OR Notes * Anesthesia Postprocedure Evaluation - Marcelino Corral MD - 06/21/2025 9:55 AM EST Patient: Sakshi Hightower Procedure Summary Date: 06/21/25 Room / Location: [facility] OR Anesthesia Start: 932 Anesthesia Stop: 951 Procedure: EGD Diagnosis: Nausea and vomiting, unspecified vomiting type History of Clau-en-Y gastric bypass Dysphagia, unspecified type Scheduled Providers: Malik Robles DO; Marcelino Corral MD Responsible Provider: Marcelino Corral MD Anesthesia Type: MAC ASA Status: 1 Anesthesia Type: MAC Vitals Value Taken Time BP 127/79 06/21/25 09:47 Temp 36.7 ??C (98.1 ??F) 06/21/25 09:47 Pulse 72 06/21/25 09:47 Resp 18 06/21/25 09:47 SpO2 98 % 06/21/25 09:47 Anesthesia Post Evaluation Patient location during evaluation: PACU Patient participation: complete - patient participated Level of consciousness: awake and alert Pain score: 2 Pain management: adequate Airway patency: patent Cardiovascular status: acceptable Respiratory status: acceptable Hydration status: acceptable Postoperative Nausea and Vomiting: none No notable events documented. * Anesthesia Preprocedure Evaluation - Marcelino Corral MD - 06/21/2025 8:54 AM EST Patient: Sakshi Hightower Procedure Information Date/Time: 06/21/25 1230 Scheduled providers: Malik Robles DO; Marcelino Corral MD Procedure: EGD Location: [facility] OR Relevant Problems GI (+) Dysphagia Clinical information reviewed: Meds NPO Detail: No data recorded Physical Exam Airway Mallampati: II TM distance: >3 FB Neck ROM: full Cardiovascular Rhythm: regular Rate: normal Dental - normal exam Pulmonary Breath sounds clear to auscultation Abdominal Anesthesia Plan History of general anesthesia?: yes History of complications of general anesthesia?: no ASA 1 MAC The patient is not a current smoker. intravenous induction Anesthetic plan and risks discussed with patient. documented in this encounter Plan of Treatment Not on file documented as of this encounter Visit Diagnoses Not on filedocumented in this encounter Administered Medications Medication OrderMAR ActionAction DateDoseRateSite lidocaine PF (Xylocaine) 10 mg/mL (1 %) injection epidural, As needed, Starting on Sat06/21/25 at 0937, Anesthesia Intraprocedure Given06/21/2025 9:37 AM EST3 mL midazolam (Versed) injection intravenous, As needed, Starting on Sat06/21/25 at 0937, Anesthesia Intraprocedure Given06/21/2025 9:37 AM EST2 mg propofol (Diprivan) injection intravenous, As needed, Starting on Sat06/21/25 at 0937, Anesthesia Intraprocedure Given06/21/2025 9:40 AM EST30 ajNaicz0406/21/2025 9:37 AM EST30 mgdocumented in this encounter Care Teams Team MemberRelationshipSpecialtyStart DateEnd Date Jimmie Demarco DO [address] [facility], [place] [address] PCP - GeneralFamily Rknczbul43/22/25documented as of this encounter
[2025-06-26] VITALS (18 sets, daily range): BP systolic 138–164; BP diastolic 84–100; PULSE 72–110; TEMP 36.7; O2SAT 97–98; BMI 31.9
--- NOTE | 2025-06-26 16:21 | CT_ITS ---
The [address] [address] Patient Name: LORNE MOORE MRN: [id number] date: 1965 Sex: F Assigned Patient Location: ER Current Patient Location: .[facility] Accession/Order Number: [id number] Exam Date: 06/26/2025 16:40 Report Date: 06/26/2025 17:06 At the request of: LANDEN XIAO DO Procedure: CT angio chest CTA Chest TECHNIQUE: Axial imaging with 2-D and 3-D reconstruction. The CT exam was performed using one or more the following dose reduction techniques: Automated exposure control, adjustment of the MA and/or Kv according to patient size, or use of the iterative reconstruction technique. History: Chest pain. Shortness of breath. COMPARISON: None THYROID: Unremarkable TRACHEA AND BRONCHI: Patent ESOPHAGUS: Unremarkable. HEART: Within normal limits PERICARDIAL EFFUSION: None CORONARY ARTERY CALCIFICATION: None MEDIASTINUM: Calcified mediastinal lymph nodes. PULMONARY ELLEN: No hilar mass or adenopathy is seen. THORACIC AORTA no dissection. No aneurysm. Mild atherosclerosis. PULMONARY EMBOLUS: None LUNG NODULE None LUNGS: Lungs are clear PLEURAL EFFUSION: None PNEUMOTHORAX: No pneumothorax seen. CHEST WALL: No abnormality AXILLA: Unremarkable BONY STRUCTURES Intact UPPER ABDOMEN: Punctate calcifications in the spleen. Gastric surgery changes. CT/CT angio chest IMPRESSION: No aortic aneurysm or dissection. No acute chest findings Impression dictated by: Mark Londono M.D. 06/26/2025 5:06 PM Dictation Location: [employer] Electronically authenticated by: [id number] Y Date: 06/26/2025 17:06
--- NOTE | 2025-06-26 16:21 | ECG_ITS ---
[facility] Test Date: 2025-06-26 Pat Name: LORNE MOORE Department: Room: - Gender: Female Special Effects Specialist: : 1965 Requested By: [id number] Order Number: [id number] Reading MD: SAMANTHA DUMAS M.D. Measurements Intervals [place] Rate: 100 P: 76 NH: 136 QRS: -22 QRSD: 80 T: 48 QT: 356 QTc: 413 Interpretive Statements 1120 Sinus tachycardia 2420 RSR (QR) in lead V1/V2, consistent with right ventricular conduction delay [address] depression 6220 Possible left atrial enlargement 7202 Moderate left axis deviation 9140 abnormal rhythm ECG Compared to ECG 06/06/2025 04:10:08 ST (T wave) deviation now present Left-axis deviation now present Sinus bradycardia no longer present Electronically Signed On 06-27-2025 13:10:31 EST by SAMANTHA DUMAS M.D.
[2025-06-26] MEDS: LORAZEPAM 2 MG/ML VIAL 1 MG IV (16:31)
--- OUTSIDE RECORDS SUMMARY | 2025-06-26 16:37 | XMS_ITS | Clinical Summary ---
Author Organization [facility] Address [address] [address] Phone Care Team Providers Care Branch Service Specialist Name Role Phone Jimmie Demarco Primary Care Provider [phone] Allergies Active AllergyReactionsCriticalityNoted DateCommentsTramadolAnaphylaxis,Hives, Itching,IkejMtmj28/15/2001 Other Reaction(s): Intolerance Heart racing Medications MedicationSigDispense QuantityRefillsLast FilledStart DateEnd DateStatus pregabalin (Lyrica) 50 mg capsule Take 1 capsule (50 mg) by mouth 3 times a day.5Active escitalopram (Lexapro) 20 mg tablet Take 1 tablet (20 mg) by mouth once daily.08/02/2019Active tiZANidine (Zanaflex) 4 mg tablet 1 tablet (4 mg).4Active cholecalciferol (Vitamin D-3) 1.25 mg (50,000 units) capsule Take 1 capsule (1.25 mg) by mouth 1 (one) time per week.4Active cariprazine (Vraylar) 1.5 mg capsule Take 1 capsule (1.5 mg) by mouth once daily.5Active LORazepam (Ativan) 1 mg tablet Take 1 tablet (1 mg) by mouth twice a day.5Active buprenorphine-naloxone (Suboxone) 8-[address] 1 Film under the tongue once daily.5Active ondansetron (Zofran) 8 mg tablet Take 1 tablet (8 mg) by mouth every 8 hours if needed for nausea or vomiting. Active busPIRone (Buspar) 15 mg tablet Take by mouth 2 times a day.Active prucalopride 2 mg tablet Indications:Constipation, unspecified constipation typeTake 1 tablet (2 mg) by mouth once daily. 30 tablet ctive Additional Information Patient not taking.Reported on 06/21/2025 pantoprazole (ProtoNix) 40 mg EC tablet Indications:Chronic marginal ulcerTake 1 tablet (40 mg) by mouth 2 times a day. 60 tablet /6Active pantoprazole (ProtoNix) 40 mg EC tablet Take 1 tablet (40 mg) by mouth.Discontinued prochlorperazine (Compazine) 10 mg tablet Indications:Nausea and vomiting, unspecified vomiting typeTake 1 tablet (10 mg) by mouth every 6 hours if needed for nausea or vomiting for up to 7 days. 30 tablet Expired Active Problems ProblemNoted DateDiagnosed DateNausea and wusbrgek76/18/2025History of Clau-en-Y gastric owkyxr0006/17/20258348Inqvdaurp22/18/2025 Encounters DateTypeDepartmentCare TqiyMitgszxtvth43/23/2025Results Follow-Up [facility] [address] [place] [phone] Karla Robles DO [facility]06/21/2025 9:33 AM ESTAnesthesia Event [facility] OR [address] [place] [phone] Marcelino Corral MD 06/21/2025 7:59 AM EST - 06/21/2025 11:59 PM ESTHospital Encounter [facility] OR [address] [place], [place] [phone] Karla Robles DO Ligman, Paul J, MD Chronic marginal ulcer (Primary Dx); Nausea and vomiting, unspecified vomiting type; History of Clau-en-Y gastric bypass; Dysphagia, unspecified type Discharge Disposition: Home06/21/2025 7:56 AM EST - 06/21/2025 7:58 AM EST Hospital Encounter [facility] [address] [place] [address] Nausea and vomiting, unspecified vomiting type Discharge Disposition: Home06/21/20250779Skrfgh71/19/9358Oonwln42/18/2025 2:15 PM ESTOffice Visit [facility] [address] [place] [address] Karla Robles, Constipation, unspecified constipation type (Primary Dx); Nausea and vomiting, unspecified vomiting type; History of Clau-en-Y gastric bypass; Dysphagia, unspecified type Discharge Disposition: Home06/17/20255073Andmbe14/17/2025Travelfrom Last 3 Months Family History Medical HistoryRelationNameCommentsUlcerative colitisDaughterAutoimmune disease FatherAlzheimer's diseaseMotherRelationNameStatusCommentsDaughterFatherMother Social History Tobacco UseTypesPacks/DayYears UsedDateSmoking Tobacco: FormerCigarettes Smokeless Tobacco: Never Tobacco Cessation:Counseling Given: Not Answered Alcohol UseStandard Drinks/WeekCommentsNot Currently0 (1 standard drink = 0.6 oz pure alcohol)occCommentsUnknownSex and Gender InformationValueDate RecordedSex Assigned at BirthNot on fileLegal EtrQdsurg40/15/2025 12:04 PM EST Gender IdentityNot on fileSexual OrientationNot on file Last Filed Vital Signs Vital SignReadingTime TakenCommentsBlood Qpiedgzm603/7506/21/2025 11:00 AM EST Qmjqd740006/21/2025 11:00 AM QQTIaemktziqmw96.7 ??C (98.1 ??F)06/21/2025 11:00 AM ESTRespiratory Owlh497708/22/2024 11:00 AM ESTOxygen Juklkprrlp98%06/21/2025 11:00 AM ESTInhaled Oxygen Concentration--Tftfhn63.4 kg (208 lb 1.8 oz)06/21/2025 8:58 AM XITEnreos215 cm (5' 8.11 )06/21/2025 8:58 AM ESTBody Mass Index31.54 06/21/2025 8:58 AM EST Plan of Treatment Health MaintenanceDue DateLast DoneCommentsCT Jxrxainqqluc1966Colonoscopy 1966Colorectal Cancer Ogowinfhl1966FIT-DNA (Cologuard)1966FIT 1966HIV Kumpufciu1966Lipid Panel1966 3960Znsygjuesvzib1966MMR Vaccines (1 of 1 - Standard series)1967Hepatitis C Uteqpdtml90/05/1984 Hepatitis B Vaccines (1 of 3 - 19+ 3-dose series)1985Cervical Cancer Pelemspii81/05/1987HPV/Absmwb7401/02/1987Pap Smear1987Pneumococcal Vaccine (2 of 2 - PPSV23, PCV20, or PCV21)/07/20040601Chwjlgvdh99/10/2015 04/09/2014COVID-19 Vaccine (3 - season)/03/2021, 11/09/2020 Influenza Vaccine (#1)2025Zoster Vaccines (2 of 2)/ Yearly Adult Kilscyxr45/, 08/01/2023iabetes Screening 8002/25/2025, 4DTaP/Tdap/Td Vaccines (3 - Td or Tdap)03/15/2035 03/15/2025, 11/19/2005HIB VaccinesAged OutNo longer eligible based on patient's age to complete this topicHPV VaccinesAged OutNo longer eligible based on patient's age to complete this topicHepatitis A VaccinesAged OutNo longer eligible based on patient's age to complete this topicIPV VaccinesAged OutNo longer eligible based on patient's age to complete this topicMeningococcal VaccineAged OutNo longer eligible based on patient's age to complete this topic Rotavirus VaccinesAged OutNo longer eligible based on patient's age to complete this topic Medical Devices ImplantedTypeAreaManufacturerDevice IdentifierShelf Expiration DateModel / Serial / LotJoint Knee-04/07/2025 Implanted:04/07/2025 (Quantity not on file)Joint KneeLeft: Knee/ [id number] / Procedures Procedure NamePriorityDate/TimeAssociated QjakhjpbcUyuhqmrqOWHZkrwqob97/22/2025 9:46 AM EST Nausea and vomiting, unspecified vomiting type History of Clau-en-Y gastric bypass Dysphagia, unspecified type US EEWIDYPAUNUFipexrv11/22/2025 9:25 AM EST Nausea and vomiting, unspecified vomiting type from Last 3 Months Results * Esophagogastroduodenoscopy (EGD) (06/21/2025 9:46 AM [...] ESOPHAGUS DISTAL BIOPSY SURGICAL PATHOLOGY EXAM Karla Robles, DO 06/21/2025 0938 Procedure Location [address] [phone] Referring Provider Karla Robles DO Procedure Provider [...] Phelan 06/21/2025 1:46 PM Dictation workstation: ?? [id number] Narrative 06/21/2025 1:46 PM EST Interpreted By: Cameron Phelan, STUDY: US GALLBLADDER; ??06/21/2025 9:25 am ?? INDICATION: Signs/Symptoms:N/V s/p gastric bypass. Gallstones. ?? COMPARISON: None. ?? ACCESSION NUMBER(S): [id number] ?? ORDERING CLINICIAN: KARLA ROBLES ?? TECHNIQUE: [...] gastric bypass. Gallstones. COMPARISON: None. ACCESSION NUMBER(S): [id number] ORDERING CLINICIAN: KARLA ROBLES TECHNIQUE: Multiple images [...] Cameron Phelan 06/21/2025 1:46 PM Dictation workstation: [id number] Authorizing ProviderResult TypeResult StatusDale Margareth Robles DOIMG US PROCEDURES Final Result from Last 3 Months Insurance * Guarantor: Yvon Hightower TypeRelation to PatientDate of PhoneBilling AddressPersonal/IyipqqWcgk1965 [facility] [address] [place] [address] Care Teams Team MemberRelationshipSpecialtyStart DateEnd Date Jimmie Demarco DO [address], [facility] [place] [address] PCP - GeneralFamily Uacbzzbq65/22/25
--- OUTSIDE RECORDS SUMMARY | 2025-06-26 16:37 | XMS_ITS | Clinical Summary ---
Author Organization [facility] Address [address] [place] [address] Care Team Providers Care Sales Service Route Manager Name Role Phone Unavailable Primary Care Provider Unavailabl e Allergies Active AllergyReactionsCriticalityNoted DateCommentsTree NutsAnaphylaxis 08/10/2015 States she has EPI pen Tramadol FrgHbnrqqwmnyk14/16/2016 Heart racing Medications * This document contains information received from the source organization and may not represent a complete record from that organization. MedicationSigDispense QuantityRefillsLast FilledStart DateEnd DateStatus montelukast (SINGULAIR) 10 mg tablet Take 10 mg by mouth daily at bedtime.Active omeprazole (PRILOSEC) 20 mg capsule Take 20 mg by mouth twice daily.Active metaxalone (SKELAXIN) 800 mg tablet Take 800 mg by mouth as needed.Active albuterol HFA (PROVENTIL HFA, VENTOLIN HFA) 90 mcg/actuation inhaler Inhale 2 Puffs as instructed.Active IPRATROPIUM/ALBUTEROL SULFATE (COMBIVENT INHALATION) Inhale as instructed.Active ibuprofen (MOTRIN) 800 mg tablet Take 800 mg by mouth every 6 hours as needed.Active cholecalciferol, Vitamin D3, (VITAMIN D3) 50,000 unit cap capsule Take 1 capsule by mouth once each week. 12 capsule Active ursodiol (ACTIGALL) 300 mg capsule Indications:Morbid obesity due to excess calories (HCC),MARYLU (obstructive sleep apnea)Take 1 capsule by mouth twice daily with meals. 60 capsule Active famotidine (PEPCID) 40 mg/5 mL (8 mg/mL) suspension Indications:Morbid obesity due to excess calories (HCC),MARYLU (obstructive sleep apnea)Take 5 mL by mouth twice daily. 150 mL Active oxyCODONE (ROXICODONE) 5 mg/5 mL oral solution Indications:Morbid obesity due to excess calories (HCC),MARYLU (obstructive sleep apnea)Take 5 mL by mouth every 6 hours as needed for Pain. 250 mL Active HYDROcodone-acetaminophen (NORCO) 5-325 mg per tablet Take 2 tablets by mouth every 6 hours as needed.Active Active Problems ProblemNoted DateDiagnosed DateMorbid dgpbbvh3412/21/2015OSA (obstructive sleep apnea)09/21/2015Morbid obesity due to excess jjnkladz43/23/2016 Family History Medical HistoryRelationCommentsObesityFatherRelationStatusCommentsFather Social History Tobacco UseTypesPacks/DayYears UsedDateSmoking Tobacco: HjascgGbbxopdxai9Rgyk: 09/29/2014lcohol UseStandard Drinks/WeekCommentsNo0 (1 standard drink = 0.6 oz pure alcohol)CommentsNoSex and Gender InformationValueDate RecordedSex Assigned at BirthNot on fileLegal PxkFtafkt25/02/2012 9:50 AM ESTGender Identity Not on fileSexual OrientationNot on fileOccupationIndustryJob Start DateJob End DatelpnNot on fileNot on fileNot on file Last Filed Vital Signs Vital SignReadingTime TakenCommentsBlood Sbzaejca859/6310 2:31 PM EDT Dksdq701904/03/2016 2:31 PM VNOFhahlrxhbno94 ??C (98.6 ??F)12/23/2015 11:35 AM EDT Respiratory Fxij2756 11:35 AM EDTOxygen Wgjfalpwml22%12/23/2015 11:35 AM EDTInhaled Oxygen Concentration--Ceyedt797.2 kg (265 lb 1.6 oz)04/03/2016 2:31 PM UGAVdlfva144.2 cm (5' 7.01 )04/03/2016 2:31 PM EDTBody Mass Index41.51 04/03/2016 2:31 PM EDT Plan of Treatment Health MaintenanceDue DateLast DoneCommentsAnxiety Ykhsezxry87/05/1984Depression Qcnaduagw94/05/1984HIV Eqstvmdua73/05/1984Hepatitis C Vgngubjph51/05/1984 DTaP,Tdap,Td Vaccine (1 - Tdap)1985Cervical Cancer Ikdihjwhm54/05/1987 Mammogram Tqitdguyw34/05/2006CT Pmosknovauhr43/05/2011Cologuard (FIT-DNA) 01/02/20115134Bhyqwgoedtt69/05/2011Colorectal Cancer Xxlqernyj15/05/2011Fecal Occult Blood01/02/20118164Xyugrqprawcyx87/05/2011Pneumococcal Vaccine: 50+ (1 of 1 - PCV) 01/03/2016Shingrix Vaccine (1 of 2)01/03/2016Diabetes Xamorcbln13/21/2019 03/21/2016, 12/22/2015, 12/06/2015, Additional history existsLipid Screening /03/2016Covid-19 Vaccine (1 - 2024- season)2025Influenza Vaccine (#1)2025RSV Vaccine (1 - 1-dose 75+ series)2041 Procedures Procedure NamePriorityDate/TimeAssociated DiagnosisCommentsCOMPREHENSIVE METABOLIC MTJLRZpvdzxe43/21/2016 9:33 AM EDT Morbid obesity due to excess calories (HCC) S/P bariatric surgery Vitamin D deficiency LIPID PANEL, XAXYFDMJvvlgna89/09/2016 9:16 AM EST Gastroesophageal reflux disease without esophagitis [K21.9] Morbid obesity, unspecified obesity type (HCC) [E66.01] Other chronic pain Prediabetes Disturbance in sleep behavior from Last 3 Months or Most Recently Relevant to Health Maintenance Results * (ABNORMAL) COMP METABOLIC PANEL (03/21/2016 9:33 AM EDT)ComponentValueRef RangeTest MethodAnalysis TimePerformed AtPathologist SignatureProtein, Total 7.06.0 - 8.4 g/dL03/21/2016 4:56 PM [facility]TC[facility] LABAlbumin 4.03.5 - 5.0 g/dL03/21/2016 4:56 PM [facility]TCKET[facility] LABCalcium 9.48.5 - 10.5 mg/dL03/21/2016 4:56 PM [facility] Bilirubin, Total0.70.0 - 1.5 mg/dL03/21/2016 4:56 PM [facility] LABAlkaline Vflfpgufmld18099 - 150 U/L03/21/2016 4:56 PM EDT [facility] IWGKIR109 - 40 U/L03/21/2016 4:56 PM [facility] IRXIasflqa0486 - 100 mg/dL03/21/2016 4:56 PM [facility] MGNNZI871 - 25 mg/dL03/21/2016 4:56 PM [facility] LABCreatinine0.50(L)0.70 - 1.40 mg/dL03/21/2016 4:56 PM [facility] OOUHdkcks058069 - 148 mmol/L03/21/2016 4:56 PM [facility] LABPotassium4.23.5 - 5.0 mmol/L03/21/2016 4:56 PM EDT [facility] TPPErtrduqb53466 - 105 mmol/L03/21/2016 4:56 PM EDT [facility] DKHHM62712 - 32 mmol/L03/21/2016 4:56 PM EDT [facility] LABAnion Dje257 - 18 mmol/L03/21/2016 4:56 PM EDT [facility] SYYBTQ675 - 45 U/L03/21/2016 4:56 PM [facility] LABeGFR->6009 4:56 PM [facility] LABeGFR-All Other Races>60.03/21/2016 4:56 PM [facility] LABComment: eGFR (Estimated GFR) Units of measure: mL/min/1.73 meters squared eGFR is derived from the reexpressed MDRD Study equation using the following parameters: serum creatinine, age, gender and race. The creatinine assay has been calibrated to be traceable to IDMS. An eGFR <60 mL/min/1.73m2 for >3 months is consistent with chronic kidney disease. Refer to KDOQI guidelines for clinical interpretation. In patients with unstable renal function, e.g. those with acute kidney injury, the eGFR may not accurately reflect actual GFR. Specimen (Source)Anatomical Location / LateralityCollection Method / Volume Collection TimeReceived TimeBlood specimen (specimen)BLOOD SPECIMEN / Unknown 03/21/2016 9:33 AM EDT03/21/2016 9:35 AM EDT Narrative Authorizing ProviderResult TypeResult StatusKyung Skaggs APRN.CNPLABORATORY Final ResultPerforming OrganizationAddressCity/State/ZIP CodePhone Number [facility] [address] [place] [address] * (ABNORMAL) LIPID PANEL BASIC (09/07/2015 9:16 AM EST)ComponentValueRef Range Test MethodAnalysis TimePerformed AtPathologist HilrhxuecXqynpbtpimxx59280 - 149 mg/dL09/07/2015 6:04 PM [facility] LABORATORYCholesterol, Emzzc303532 - 199 mg/dL09/07/2015 6:04 PM [facility] HDL Fmpaxyojibe65(L)>55 mg/dL09/07/2015 6:04 PM [facility] LABORATORYVLDL Xiigdfppghv583 - 40 mg/dL09/07/2015 6:04 PM [facility]ORATORYLDL Cholesterol, Gxhftveyrd2113 - 129 mg/dL09/07/2015 6:04 PM [facility] LABORATORYFasting Atks91gkn79/09/2016 9:24 AM EST [facility] LABTC:HDL Ratio3.741.00 - 5.0003 6:04 PM [facility] LABORATORYLDL:HDL Ratio2.080.50 - 3.5503 6:04 PM [facility] LABORATORYNon HDL Pedtxrmiokg63644 - 159 mg/dL 09/07/2015 6:04 PM [facility] LABORATORYSpecimen (Source) Anatomical Location / LateralityCollection Method / VolumeCollection Time Received TimeBlood specimen (specimen)BLOOD SPECIMEN / Kgbxqjh7409/07/2015 9:16 AM EST09/07/2015 9:24 AM EST Narrative Authorizing ProviderResult TypeResult StatusKyung Skaggs APRN.CNPLABORATORY Final ResultPerforming OrganizationAddressCity/State/ZIP CodePhone Number [facility] [address] [place] [address] [facility] [address] [place] [address] from Last 3 Months or Most Recently Relevant to Health Maintenance Insurance * Guarantor: Sakshi HightowerAccoceci TypeRelation to PatientDate of PhoneBilling AddressPersonal/YfpeluOsyc1965 [address] [address]
--- OUTSIDE RECORDS SUMMARY | 2025-06-26 16:37 | XMS_ITS | Clinical Summary ---
Author Organization [facility] Address [address], [address] [place] [address] Care Team Providers Care Railroad Construction Director Name Role Phone Unavailable Primary Care Provider Unavailabl e Allergies Active AllergyReactionsCriticalityNoted DateCommentsEnvironmental/Seasonal UqjoxbfGirwnv88/22/2020 ragweed Peanut-Containing Drug UgeuchsnPolhnlxbptvKjyd72/22/2020 Tree nuts TramadolHives,ScmasfwRbe73/08/2021Tramadol ZewKftfCcn12/22/2020 Medications MedicationSigDispense QuantityRefillsLast FilledStart DateEnd DateStatus EPINEPHrine (EPIPEN) 0.3 MG/0.3ML SOAJ injection Inject 0.3 mLs into the muscle as needed Use as directed for allergic reaction Active pregabalin (LYRICA) 50 MG capsule Take 1 capsule by mouth 3 times daily. Pain sqcrjluuyo36/16/2021ctive HYDROcodone-acetaminophen (NORCO) 5-325 MG per tablet Take [...] 90 tablet ctive vitamin D (VITAMIN D3) 92354 UNIT CAPS Take 1 capsule by mouth once a week 12 capsule ctive Semaglutide-Weight Management (WEGOVY) 0.25 MG/0.5ML SOAJ SC injection Indications:BMI 40.0-44.9, adult ([facility])Inject 0.25 mg into the skin every 7 days 2 mL 09/18/2023ctive Semaglutide-Weight Management (WEGOVY) 0.5 MG/0.5ML SOAJ SC injection Indications:BMI 40.0-44.9, adult ([facility]),Class 3 severe obesity due to excess calories with body mass index (BMI) of 40.0 to 44.9 in adult, unspecified whether serious comorbidity present ([facility])Inject 0.5 mg into the skin every 7 days 2 mL 10/03/2023ctive tiZANidine (ZANAFLEX) 4 MG tablet Indications:Chronic bilateral low back pain without sciaticaTAKE 1 TABLET BY MOUTH 3 TIMES DAILY 90 tablet ctive Active Problems ProblemNoted DateDiagnosed JqpyIjxbzhdgic28/16/2024BMI 40.0-44.9, adult 04/15/2024Obesity, Class III, BMI 40-49.9 (morbid obesity)4Chronic bilateral low back pain without wgazooso77/20/2022Migraine without aura and without status migrainosus, not zhsuchccpgy05/08/2021hift work sleep disorder 1Asthma, mild egazzufygfbm37/22/2020Major depressive eqfhdtra15/22/2020 Other headache /22/2020Generalized anxiety /22/2020 Gastroesophageal reflux kgskhfl2504/21/2020Bariatric surgery twfsgp0404/21/2020OSA (obstructive sleep apnea)09/21/2015Anxiety Immunizations ImmunizationAdministration DatesNext DueCOVID-19, [...] more drinks on one occasion?Never03/15/2024HQ-2AnswerDate RecordedPHQ-9 Total Cqdqt664regnantCommentsUnknownSex and Gender InformationValueDate RecordedSex Assigned at BirthNot on fileLegal SexFemale 08/10/2012 9:20 AM ESTGender IdentityNot on fileSexual OrientationNot on file Last Filed Vital Signs Vital SignReadingTime TakenCommentsBlood Fxhmmbuq439/7509 6:41 PM EDT Iyrwy780103/15/2024 6:41 PM HXJZyxfhrpuyxc64.6 ??C (97.8 ??F)03/15/2024 6:41 PM EDTRespiratory Wctz370303/15/2024 6:41 PM EDTOxygen Inilvmbwjp40%03/15/2024 6:41 PM EDTInhaled Oxygen Concentration--Vryvmc481.3 kg (265 lb 3.2 oz)08/01/2023 2:51 PM WQEZrngls695.7 cm (5' 8 )08/01/2023 2:51 PM ESTBody Mass Index40.32 08/01/2023 2:51 PM EST Plan of Treatment Health MaintenanceDue DateLast DoneCommentsHIV egxuwm0501/02/1981Hepatitis C ddceyw1101/03/1984Hepatitis B vaccine (1 of 3 - 19+ 3-dose series)1985Pap smear1987Cervical cancer yuadqv6901/03/1996HPV (without or with Pap) 01/03/1996Pneumococcal 50+ years Vaccine (2 of 2 - PPSV23, PCV20, or PCV21) Colonoscopy2011Colorectal Cancer Asblwk9401/02/2011 FIT/FOBT: Average risk2011Fecal-DNA (Cologuard): Average risk2011 Sigmoidoscopy/CT uinljcyiamma62/05/2011DTaP/Tdap/Td vaccine (2 - Td or Tdap) Shingles vaccine (1 of 2)01/03/2016Breast cancer screen Depression Vtrbgvekyr12/01/033597/07/2023Flu vaccine (#1) 5COVID-19 Vaccine (3 - season)506/03/2021, 11/09/2020 Iewskg54/21/564422/, 03/22/2022, 03/23/2014Pneumococcal 0-49 years RoeuafzEquwtiijgfdm60/01/2005Diabetes tukoocQeykrgdtuqmk08/21/2024Hepatitis A vaccineAged OutNo longer eligible based on [...] complete this topic Procedures Procedure NamePriorityDate/TimeAssociated DiagnosisCommentsHEMOGLOBIN M3BBsqwefm 08/21/2023 2:51 PM EST Encounter for wellness examination in adult LIPID BMKZGHgybljq29/21/2024 2:51 PM EST Encounter for wellness examination in adult NICK DIGITAL SCREEN W OR WO CAD XWHEISXWJDjifpen33/10/2014 3:39 PM EDT from Last 3 Months or Most Recently Relevant to Health Maintenance Results * Hemoglobin A1C (08/21/2023 2:51 PM EST)ComponentValueRef RangeTest Method Analysis TimePerformed AtPathologist SignatureHemoglobin A1C5.54.0 - 6.0 % 08/21/2023 2:51 PM ESTMERCY LABORATORIESEstimated Avg Ooiwwdt545eu/dL 08/21/2023 2:51 PM ESTMERCY LABORATORIESComment: The ADA and AACC recommend providing the estimated average glucose result to permit better patient understanding of their HBA1c result. Specimen (Source)Anatomical Location / LateralityCollection Method / Volume Collection TimeReceived TimeBloodBLOOD SPECIMEN / Nqnjlex3608/21/2023 2:51 PM EST 08/21/2023 2:52 PM EST Narrative Authorizing ProviderResult TypeResult StatusRobin Amber CONSULTING MARINE ENGINEER - CNPCHEMISTRY ORDERABLESFinal ResultPerforming OrganizationAddressCity/State/ZIP CodePhone Number [facility] [address] [place] [address], [facility] [phone] [facility] [address] [id number], [facility] [phone] * (ABNORMAL) Lipid Panel (08/21/2023 2:51 PM EST)ComponentValueRef RangeTest MethodAnalysis TimePerformed AtPathologist UesdcxwotWezqcluxate714<200 mg/dL 08/21/2023 2:51 PM ESTMERCY LABORATORIESComment: Cholesterol Guidelines: <200 Desirable 200-240 ??Borderline >240 Undesirable HDL53>40 mg/dL08/21/2023 2:51 PM ESTM[facility] LABORATORIESComment: HDL Guidelines: <40 Undesirable 40-59 ?Borderline >59 Desirable LDL Wgzsprtuznu511 - 130 mg/dL08/21/2023 2:51 PM ESTM[facility] LABORATORIESComment: [...] / Volume Collection TimeReceived TimeBloodBLOOD SPECIMEN / Ppcqvvg5408/21/2023 2:51 PM EST 08/21/2023 2:52 PM EST Narrative Authorizing ProviderResult TypeResult StatusRobin Amber CONSULTING MARINE ENGINEER - CNPCHEMISTRY ORDERABLESFinal ResultPerforming OrganizationAddressCity/State/ZIP CodePhone Number [facility] [address] [place] [address], [facility] [phone] [facility] [address] [place] [address], [facility] [phone] * NICK Digital Screen Bilateral (04/09/2014 3:39 PM EDT)Anatomical Region LateralityModalityBreastBilateralMammographySpecimen (Source)Anatomical Location / LateralityCollection Method / VolumeCollection TimeReceived Time 04/09/2014 3:39 PM EDT Narrative 04/09/2014 5:07 PM EDT FINAL Procedure: ??TMM ??Apr 09 2014 ??3:39PM [id number] ??MAMMOGRAM DIGITAL SCREEN BILAT Reason for Exam: ??^SCREENING FULL RESULT: ?? REPORT: BILATERAL DIGITAL SCREENING MAMMOGRAM WITH ASSISTANCE OF CAD INDICATION: Screening FINDINGS: This is a baseline examination. ??Scattered fibroglandular densities in both breasts. No suspicious calcifications, mass lesions, architectural distortion or skin thickening. IMPRESSION: ? No mammographic evidence of malignancy. (CATEGORY 1 - ACR BI-RADS: NEGATIVE) Report Transcribed by: [facility] on Apr 09 2014 ??5:07P Read by: ??NEELAM HEADLEY M.D. ??[id number] on Apr 09 2014 ??5:07P Electronically Signed by: ??DR. NEELAM HEADLEY M.D. on: ??Apr 09 2014 ?? 5:07P ? Procedure Note Neelam Headley MD - 04/09/2014 FINAL Procedure: TMM Apr 09 2014 3:39PM [id number] MAMMOGRAM DIGITAL SCREEN BILAT Reason for Exam: ^SCREENING FULL RESULT: REPORT: BILATERAL DIGITAL SCREENING MAMMOGRAM WITH ASSISTANCE OF CAD INDICATION: Screening FINDINGS: This is a baseline examination. Scattered fibroglandular densities in both breasts. No suspicious calcifications, mass lesions, architectural distortion or skin thickening. IMPRESSION: No mammographic evidence of malignancy. (CATEGORY 1 - ACR BI-RADS: NEGATIVE) Report Transcribed by: [facility] on Apr 09 2014 5:07P Read by: NEELAM HEADLEY M.D. [id number] on Apr 09 2014 5:07P Electronically Signed by: DR. NEELAM HEADLEY M.D. on: Apr 09 2014 5:07P Authorizing ProviderResult TypeResult StatusDidarius Lamas CONSULTING MARINE ENGINEER - CNPIMG MAMMOGRAPHY ORDERABLESFinal Result from Last 3 Months or Most Recently Relevant to Health Maintenance Insurance MemberSubscriberPlan / Payer (Effective 2018-Present)Name:JacobeliotSakshi alex Relation to Subscriber:SelfName:Sakshi Hightower Payer ID:Not on file Type:Not on file Address: [address] [id number]
--- OUTSIDE RECORDS SUMMARY | 2025-06-26 16:37 | XMS_ITS | Encounter Summary ---
Author Organization [facility] Address [address] [place] [address] Phone Care Team Providers Care Head Nurse Name Role Phone Unavailable Primary Care Provider Unavailabl e Encounter Details DateTypeDepartmentCare Team (Latest Contact Info)Mnilxlgxvea49/19/2025Travel Social History Tobacco UseTypesPacks/DayYears UsedDateSmoking Tobacco: FormerCigarettes Smokeless Tobacco: NeverAlcohol UseStandard Drinks/WeekCommentsNot Currently0 (1 standard drink = 0.6 oz pure alcohol)occCommentsUnknownSex and Gender InformationValueDate RecordedSex Assigned at BirthNot on fileLegal SexFemale 06/14/2025 12:04 PM ESTGender IdentityNot on fileSexual OrientationNot on file documented as of this encounter Functional Status * Communicable Disease ScreeningQuestionAnswerDate of AssessmentAuthorDo you have any of the following new or worsening symptoms?None of these06/18/2025 10:16 AM Sana Cee RN documented as of this encounter Plan of Treatment Not on file documented as of this encounter Visit Diagnoses Not on filedocumented in this encounter
--- OUTSIDE RECORDS SUMMARY | 2025-06-26 16:37 | XMS_ITS | Clinical Summary ---
Author Organization [facility] Address [address] [place] [address] Care Team Providers Care Group Dynamics Instructor Name Role Phone Unavailable Primary Care Provider Unavailabl e Social History Tobacco UseTypesPacks/DayYears UsedDateSmoking Tobacco: Never Assessed CommentsUnknownSex and Gender InformationValueDate RecordedSex Assigned at Not on fileLegal CkdCxyllm00/26/2014 3:47 PM EDTGender IdentityNot on fileSexual OrientationNot on file Plan of Treatment Not on file
--- OUTSIDE RECORDS SUMMARY | 2025-06-26 16:37 | XMS_ITS | Encounter Summary ---
Author Organization [facility] Address [address] [address] Phone Care Team Providers Care Registered Public Surveyor Name Role Phone Unavailable Primary Care Provider Unavailabl e Encounter Details DateTypeDepartmentCare Team (Latest Contact Info)Qrehvmytigj96/17/2025Travel Social History Tobacco UseTypesPacks/DayYears UsedDateSmoking Tobacco: Never Assessed CommentsUnknownSex and Gender InformationValueDate RecordedSex Assigned at Not on fileLegal YpaMqbdcg84/15/2025 12:04 PM ESTGender IdentityNot on file Sexual OrientationNot on filedocumented as of this encounter Plan of Treatment Not on file documented as of this encounter Visit Diagnoses Not on filedocumented in this encounter
--- OUTSIDE RECORDS SUMMARY | 2025-06-26 16:37 | XMS_ITS | CCD ---
Author Organization [facility] Inform ion Partnership [facility] Clini[facility] Care Team Providers Care International Project Manager Name Role Phone DEDE FALLON Referring Unavailable TYSON HOLLAND Primary Care Unavailable DEDE FALLON Referring Unavailable DEDE FALLON Primary Care Unavailable Unavailable Primary Care Provider Unavailphill e Jimmie Garcia DO Primary Care Provider Jimmie Garcia DO Primary Care Provider [phone] Rakan FULLER, Keila Mathews Attending Unav ailable Radha EMERSON Jimmie Jim Primary Care Mehran Holland MD, Tyson Dow Primary Care Unavailable Rakan GROSSMAN-EDI, Keila Mathews Attending Madi Hampton MD, Manpreet Álvarez Attending Mehran lableonor Joyamethodist jennie edmundson DO Jimmie Jim Primary Care Mehran FULLER, Keila Mathews Attending Unav ailable Mahnazmethodist jennie edmundson DO [facility] [...] (1 source)Seasonal allergyPropensity to adverse reactions to nloftatyh44-27-9749 [facility] (20 sources)traMADolDrug Iwfcamw70-22-1198Uvpkb, Itching, Anaphylaxis, Rash [facility] (1 source)traMADolDrug Cgdqsuk00-11-6673ZdxvXIKDominion Hospital (7 sources)Peanut-Containing Drug ProductsPropensity to adverse reactions to bptn27-17-4230PnqiuymxwntJALWinchester Medical Center (20 sources)tree nut, unspecifiedPropensity to adverse reactions to drug 53-01-0596EaczelobxngZzgVxhoszPhelps Memorial Hospital (20 sources)peanut allergenic extractDrug Ygmmbsz66-77-0563XfrmpgqikujPxgObdbbf Health System Work Phone: (20 sources)PollenPropensity to adverse reactions to ywbo28-29-3835CtvkifrH[facility] (1 source)Nuts (not including peanuts); Translations: [Nuts]Propensity to adverse reactions to food (disorder)[facility] (1 source)Seasonal allergy; Translations: [seasonal allergies]Propensity to adverse reactions (disorder)[facility] (1 source)traMADol; Translations: [Ultram]Drug AllergyJ.W. [facility] Repository (6 sources)redtop grass pollen extractDrug Zhfukah83-31-0708GbjwrnxTfzab Health System (6 sources)[place] MealPropensity to adverse reactions to xjcs84-52-3919 [facility] Medications Current Medications MedicationDrug Class(es)DatesSig (Normalized)Sig (Original)acetaminophen 325 mg oral tablet (10 sources)Start: 12-28-7693tpgo 2 tablets by mouth every four hours as needed Acetaminophen 325 MG tablet Take 2 tablets by mouth every 4 hours as needed for Mild Pain. 50 tablet 1 04/07/2025 ActiveStart: 04-07-2025 End: 87-33-5067xzvm 1 tablet by mouth every six hours1,000 mg, Oral, EVERY 6 HOURS NON-STANDARD, First dose on Sat04/07/25 at 1300, Until Discontinued, M aximum dose of acetaminophen is 4000 mg from all sources in 24 hours., Post-op/Post-ProcStart: 06-54-0125xcdt 1 dose by mouth every hour1,000 mg, [...] oral tablet (20 sources)Opioid AgonistStart: 04-19-2025 End: 23-35-9817euac 1 tablet by mouth once daily as neededhydroCODone- acetaminophen 5-325 MG tablet Indications: Acute postoperative pain of knee Take 1-2 tablets by mouth every 8 hours as needed for up to 7 days. Do not take over 4000mg acetaminophen daily. 30 tablet 04/27/2025 05/04/2025 ActiveStart: 08-17-2024 End: 82-69-7073jhqs 1 tablet by mouth three times daily as neededHYDROcodone- acetaminophen (NORCO) 5-325 mg per tablet TAKE 1 TABLET BY MOUTH 3 TIMES A DAY NEEDED FOR PAINMUST LAST 30 DAYS 08/17/2024 12/03/2024 Discontinued (Therapy completed)Start: 09-18-2023 End: 09-64-7360XLULUbaekpj-acetaminophen (NORCO) 5-325 mg per tablet 09/18/2023 03/19/2024 Discontinued (Therapy completed)take 1 tablet by mouth every six hours as neededHYDROcodone-acetaminophen (NORCO) 5-325 MG per tablet Take 1 tablet by mouth every 6 hours as needed. [id number] 200 actuat albuterol 0.09 mg/actuat metered dose inhaler (12 sources)beta2-Adrenergic AgonistStart: 98-00-2203bjse 2 puff(s) by inhalation every six hours as needed for wheezingalbuterol sulfate HFA (PROVENTIL;VENTOLIN;PROAIR) 108 (90 Base) MCG/ACT inhaler Indications: Mild in termittent asthma, unspecified whether complicated INHALE 2 PUFFS INTO THE LUNGSEVERY 6 HOURS NEEDED FOR WHEEZING 18 g 07/11/2022 Activealbuterol (PROVENTIL HFA;VENTOLIN HFA) 90 mcg/actuation inhaler Inhale 2 puffs. Active amoxicillin 500 mg oral capsule (7 sources)Penicillin-class AntibacterialStart: 04-27-2025 End: 67-13-2873Ssonirrqpzb 500 MG capsule Take 4 capsules 1 hour before procedure 8 capsule 1 04/27/2025 04/27/2026 ActiveStart: 03-15-2025 End: 94-57-0362scky 1 capsule by mouth three times dailyamoxicillin (AMOXIL) 500 mg capsule Take 1 capsule (500 mg total) by mouth 3 (three) times a day for 7 days. 21 capsule 03/15/2025 03/22/2025 ActiveStart: 04-07-2024 End: 24-84-8855fclc 1 tablet by mouth onceamoxicillin (AMOXIL) 875 mg tablet Take 1 tablet (875 mg total) by mouth every 12 (twelve) hours for 7 days. 14 tablet 04/07/2024 04/14/2024 Activeapixaban 2.5 mg oral tablet (5 sources)Factor Xa InhibitorStart: 04-08-2025 End: 71-59-6367pyeo 2.5 mg by mouth every twelve hours in the morning2.5 mg, Oral, EVERY 12 HOURS, First dose on Ana 04/08/25 at 0900, Until Discontinued, Start in AM day after surgery, Indications: DVT proph, Post-op/Post-ProcStart: 04-07-2025 End: 38-79-9569qnes 1 tablet by mouth every twelve hoursapixaban (Eliquis) 2.5 MG tablet Take 1 tablet by mouth every 12 hours. 70 tablet 04/07/2025 05/12/2025 Activeascorbic acid 60 mg / beta carotene 5000 unt / copper sulfate 40 mg / dl- alpha tocopheryl acetate 30 unt / sodium selenite 0.04 mg / zinc oxide 40 mg oral tablet (4 sources)Vitamin CStart: 10-69-3336wrug 1 tablet by mouth once dailyMultiple Vitamin (Multivitamin Adult) tablet Take 1 tablet by mouth daily. 30 tablet 04/07/2025 Activecephalexin 500 mg oral capsule (1 source)Cephalosporin AntibacterialStart: 04-07-2025 End: 00-88-8720fayj 1 capsule by mouth every six hourscephALEXin 500 MG capsule Take 1 capsule by mouth every 6 hours for 1 dose. Take 6 hours after lastdose given. 1 capsule 04/07/2025 04/08/2025 Activecholecalciferol 1.25 mg oral capsule (20 sources)Vitamin DStart: 88-24-2322xpaa 1 capsule by mouth every week cholecalciferol (VITAMIN D3) 50,000 units capsule TAKE 1 CAPSULE BY MOUTH ONCE A WEEK 12 capsule 1 11/15/2024 ActiveStart: 08-22-2023 End: 42-92-9254vlrjgfoimetutrw (VITAMIN D3) 50,000 units capsule 08/22/2023 03/19/2024 Discontinued (Therapy completed)docusate sodium 100 mg oral capsule (5 sources)Start: 04-07-2025 End: 27-29-4356khir 1 capsule by mouth twice dailyDocusate 100 MG capsule Take 1 capsule by mouth 2 times daily. 60 capsule 04/07/2025 [id number] 0.3 ml EPINEPHrine 1 mg/ml auto-injector (12 sources)alpha-Adrenergic Agonist, beta-Adrenergic Agonist, Catecholamine EPINEPHrine (EPIPEN) 0.3 mg/0.3 mL auto-injector Inject 0.3 mL (0.3 mg total) into the appropriate muscle. ActiveEPINEPHrine 0.3 MG/0.3ML Solution Auto- injector injection Inject 0.3 mL intramuscularly. Activeescitalopram 20 mg oral tablet (20 sources)Serotonin Reuptake InhibitorStart: 08-12-2024 End: 36-19-8542nkvi 1 tablet by mouth in the morningescitalopram (LEXAPRO) 20 mg tablet Take 1 tablet (20 mg total) by mouth in the morning. 90 tablet 1 05/03/2025 ActiveStart: 08-22-2023 End: 38-24-3388mxfz 1 tablet by mouth once daily in [...] hydrochloride 25 mg oral tablet (20 sources)AntihistamineStart: 16-30-8242zhpm 1 tablet by mouth every eight hours as neededhydrOXYzine (ATARAX) 25 mg tablet Take 1 tablet (25 mg total) by mouth every 8 (eight) hours as needed for itching. 30 tablet 1 04/29/2025 Active Start: 03-25-2024 End: 25-42-2895eqom 1 tablet by mouth three times daily as neededhydrOXYzine (ATARAX) 25 mg tablet TAKE 1 TABLET BY MOUTH THREE TIMES DAILY NEEDED FOR ITCHING ORANXTIETY 02/09/2025 04/27/2025 Discontinued (Reorder)Start: 02-26-2023 End: 78-59-9280twkaCPNbixz (VISTARIL) 25 mg capsule 08/21/2023 ActiveLORazepam 0.5 mg oral tablet (20 sources)BenzodiazepineStart: 12-03-2024 End: 25-64-4895bnys 1 tablet by mouth twice daily as needed for anxietyLORazepam (ATIVAN) 0.5 mg tablet Indications: Anxiety Take 1 tablet (0.5 mg total) by mouth 2 (two)times a day as needed for anxiety. 30 tablet 04/26/2025 ActiveMisc Natural Products (TURMERIC, CURCUMIN, PO) (4 sources)Misc Natural Products (TURMERIC, CURCUMIN, PO) Take by mouth daily. Activemultivitamin tablet 1 tablet (1 source)Start: 04-08-2025 End: 00-17-0809ubpg 1 tablet by mouth once daily1 tablet, Oral, DAILY, First dose on Ana 04/08/25 at 0900, Until Discontinued, Post-op/Post-Procnaloxone hydrochloride 40 mg/ml nasal spray (4 sources)Opioid AntagonistStart: 04-07-2025 End: 10-99-1458ffswwuto 4 MG/0.1ML 1 spray by Nasal route once for 1 dose. [place] into the nose as directed. Call 911. If no response in 2 minutes use a new nasal spray in other nostril. Repeat until help arrives. 1Each 04/07/2025 Active omeprazole 20 mg delayed release oral capsule (4 sources)Proton Pump InhibitorStart: 45-97-7616vcjz 1 capsule by mouth once dailyomeprazole [address] capsule Take 1 capsule by mouth daily. 30 capsule 04/07/2025 Activeondansetron 4 mg oral tablet (20 sources)Serotonin-3 Receptor AntagonistStart: 04-17-2025 End: mg, Intravenous, ONCE, 1 dose, On 04/17/25 at 0100Start: 04-07-2025 End: 36-89-3464ceon 1 tablet by mouth every eight hours as neededOndansetron 4 MG tablet Take 1 tablet by mouth every 8 hours as needed for Nausea / Vomiting or Nausea for up to 3 days. 10 tablet 04/07/2025 04/10/2025 ActiveStart: 04-07-2025 End: 30-61-7532dtlr 4 mg intravenously every four hours as needed4 mg, Intravenous, EVERY 4 HOURS NEEDED, Starting on Sat04/07/25 at 1232, Until Sat04/07/25 at 2150, Nausea / Vomiting, Post-op/Post-ProcStart: 04-07-2025 End: mg, Intravenous, ONCE NEEDED, 1 dose, Starting on Sat04/07/25 at 1145, Until Sat04/07/25 at 2150, Nausea / Vomiting, RecoveryStart: 80-47-3207vsft 1 tablet by mouth every eight hours as needed for nausea and vomitingondansetron ODT (ZOFRAN ODT) 8 mg disintegrating tablet Dissolve 1 tablet (8 mg total) on tongue every 8 (eight) hours as needed for nausea or vomiting. 20 tablet 1 12/15/2024 ActiveStart: 02-10-2024 End: 12-75-9505vxaq 1 tablet by mouth every eight hours as needed for nausea and vomitingondansetron ODT (ZOFRAN ODT) 8 mg disintegrating tablet Dissolve 1 tablet (8 mg total) on tongue every 8 (eight) hours as needed for nausea or vomiting. 90 tablet 02/24/2024 03/19/2024 Discontinued (Therapy completed) oxyCODONE hydrochloride 5 mg oral tablet (5 sources)Opioid AgonistStart: 04-07-2025 End: 30-75-0886hfyAYKEKP 5 MG tablet Indications: Acute postoperative pain of knee 5-10 mg every 6 hours as neededfor moderate to severe pain Ween as tolerated 30 tablet 04/12/2025 ActiveStart: 04-07-2025 End: 85-99-3446iwic 5-10 mg by mouth every four hours as needed5-10 mg, Oral, EVERY 4 HOURS NEEDED, Starting on Sat04/07/25 at 1232, Until Sat04/07/25 at 2150,moderate-severe pain, If pain unrelieved with oxycodone, contact pharmacist to enter order for Oxycodone ER 10mg PO Q12H for 3 days, Post-op/Post-Proc pantoprazole 40 mg delayed release oral tablet (20 sources)Proton Pump InhibitorStart: 04-17-2025 End: 62-79-689031 mg, Intravenous, ONCE, 1 dose, On 04/17/25 at 0415, Dilute each 40 mg vial with 10 mL of NS.All bolus doses, whether 40 mg or 80 mg, should be administered over at least two minutes., Indications: GERDStart: 06-31-0476dttr 1 tablet by mouth once daily before breakfastpantoprazole (PROTONIX) 40 mg EC tablet Take 1 tablet (40 mg total) by mouth every morning before breakfast. 06/18/2024 ActiveStart: 08-22-2023 End: 76-58-4750ynmu 1 tablet by mouth once daily before breakfastpantoprazole (PROTONIX) 40 mg EC tablet Take 1 tablet (40 mg total) by mouth every morning before breakfast. 90 tablet 1 02/24/2024 03/19/2024 Discontinued (Therapy completed)microencapsulated potassium chloride 20 meq extended release oral tablet (4 sources)Start: 04-17-2025 End: 11-67-3558qlgl 1 tablet by mouth twice daily at mealtimePotassium chloride 20 MEQ Tab CR tablet Take 1 tablet by mouth 2 times daily with meals for 3 days. 6 tablet 04/17/2025 ActivepredniSONE 20 mg oral tablet (2 sources)Start: 03-25-2025 End: 77-11-9143medz 1 tablet by mouth in the morning, then take 1 tablet by mouth at bedtimepredniSONE (DELTASONE) 20 mg tablet Take 1 tablet (20 mg total) by mouth in the morning and 1 tablet (20 mg total) before bedtime. Do all this for 5 days. 10 tablet 03/25/2025 03/30/2025 ActiveStart: 09-01-2024 End: 22-33-6679avrl 1 tablet by mouth three times dailypredniSONE (DELTASONE) 20 mg tablet Take 1 tablet (20 mg total) by mouth 3 (three) times a day for 5 days. 15 tablet 09/01/2024 09/06/2024 Activepregabalin 50 mg oral capsule (20 sources)Start: 06-29-2024 End: 82-44-2857arwt 1 capsule by mouth three times dailypregabalin (LYRICA) 50 mg capsule Indications: Chronic bilateral low back pain without sciatica Take 1 capsule (50 mg total) by mouth 3 (three) times a day. 90 capsule 04/26/2025 ActiveStart: 02-13-2021 End: 77-59-8866ffbcrzmcjw (LYRICA) 50 mg capsule 09/13/2023 03/19/2024 Discontinued (Therapy completed)promethazine hydrochloride 25 mg oral tablet (14 sources)PhenothiazineStart: 12-16-2023 End: 94-81-6937csgm 1 tablet by mouth every six hours as neededPromethazine 25 MG tablet Take 1 tablet by mouth every 6 hours as needed (Nausea/Vomiting). 10 tablet 1 04/17/2025 Activesemaglutide, weight loss, (WEGOVY) 1 mg/0.5 mL pen injector (20 sources)Start: 60-32-0686cvktzjgdtvo, weight loss, (WEGOVY) 1 mg/0.5 mL pen injector Indications: Class 1 obesity due to excess calories with serious comorbidity and body mass index (BMI) of 34.0 to 34.9 in adult Inject 0.5 mL (1 mg total) under the skin every 7 days. 2 mL 2 12/03/2024 ActiveStart: 11-11-2024 End: 83-86-4378mzgyxtwkhth, weight loss, (WEGOVY) 1 mg/0.5 mL pen injector Inject 0.5 mL (1 mg total) under the skin every 7 days. 2 mL 2 11/11/2024 12/03/2024 Discontinued (Reorder)Start: 67-03-3077xpaidlaezre, weight loss, (WEGOVY) 1 mg/0.5 mL pen injector Inject 0.5 mL (1 mg total) under the skin every 7 days. 2 mL 2 11/11/2024 ActiveStart: 11-12-2023 End: 99-92-4849omovlpdobsl, weight loss, (WEGOVY) 1 mg/0.5 mL pen injector Indications: Class 2 severe obesity dueto excess calories with serious comorbidity and body mass index (BMI) of 39.0 to 39.9 in adult ([facility]) Inject 0.5 mL (1 mg total) under the skin every 7 days. 2 mL 1 11/12/2023 01/14/2024 Discontinued (Dose adjustment)Start: 08-71-2325nztwunyzens, weight loss, (WEGOVY) 1 mg/0.5 mL pen injector Indications: Class 2 severe obesity dueto excess calories with serious comorbidity and body mass index (BMI) of 39.0 to 39.9 in adult ([facility]) Inject 0.5 mL (1 mg total) under the skin every 7 days. 2 mL 1 11/12/2023 ActiveSemaglutide,0.25 or 0.5MG/DOS, 2 MG/3ML Solution Pen-injector (4 sources)inject 0.5 mg by subcutaneous injection every weekSemaglutide,0.25 or 0.5MG/DOS, 2 MG/3ML Solution Pen-injector Inject under the skin once a week. ActiveSemaglutide-Weight Management (WEGOVY) 0.25 MG/0.5ML SOAJ SC injection (1 source)Start: 32-76-9055Yvjbelwvjxf-Weight Management (WEGOVY) 0.25 MG/0.5ML SOAJ SC injection Indications: BMI 40.0-44.9, adult ([facility]) Inject 0.25 mg into the skin every 7 days 2 mL 09/18/2023 ActiveSemaglutide-Weight Management (WEGOVY) 0.5 MG/0.5ML SOAJ SC injection (1 source)Start: 12-58-5488Nndyfzkcasb-Weight Management (WEGOVY) 0.5 MG/0.5ML SOAJ SC injection Indications: BMI 40.0-44.9, adult (HCC) , Class 3 severe obesity due to excess calories with body mass index (BMI) of 40.0 to 44.9 in adult, unspecified whether serious comorbidity present ([facility]) Inject 0.5 mg into the skin every 7 days 2 mL 10/03/2023 ActivetiZANidine 4 mg oral tablet (20 sources)Central alpha-2 Adrenergic AgonistStart: 89-42-5428ojcg 1 tablet by mouth every four hours as neededtiZANidine (ZANAFLEX) 4 mg tablet Take 1 tablet (4 mg total) by mouth every 4 (four) hours as needed for muscle spasms. 120 tablet 1 04/12/2025 ActiveStart: 05-12-2024 End: 46-92-0910lqta 1 tablet by mouth every eight hours [...] 90 tablet 1 11/12/2023 ActiveStart: 08-29-2023 End: 07-57-4095ogzr 1 tablet by mouth every eight hours as neededtiZANidine (ZANAFLEX) 4 mg tablet Take 1 tablet (4 mg total) by mouth every 8 (eight) hours as needed for muscle spasms. 270 tablet 02/24/2024 03/19/2024 Discontinued (Therapy completed) Completed/Discontinued Medications MedicationDrug Class(es)DatesSig (Normalized)Sig (Original)bisacodyl 10 mg rectal suppository (1 source)Stimulant LaxativeStart: 04-07-2025 End: 33-91-6419srny 10 mg rectal route once daily as needed for rrgfeeheteoh32 mg, Rectal, DAILY NEEDED, Starting on Sat04/07/25 at 1232, Until Sat04/07/25 at 2150, constipation, Post-op/Post-Proccalcium chloride 0.0014 meq/ml / potassium chloride 0.004 meq/ml / sodium chloride 0.103 meq/ml / sodium lactate 0.028 meq/ml injectable solution (2 sources)Start: 04-07-2025 End: 63-22-5565Bdbisboazvt, at 75 mL/hr, CONTINUOUS, Starting on Sat04/07/25 at 1245, Until Sat04/07/25 at 2150, Convert IV to PRN adapter post op day 1 if adequate oral intake, Post-op/Post-ProcceFAZolin 2000 mg injection (1 source)Cephalosporin AntibacterialStart: 04-07-2025 End: 82-98-2512okms 2 g intravenously every eight hours2 g, Intravenous, Administer over 30 Minutes, EVERY 8 HOURS NON-STANDARD, 3 doses, First dose on Sat04/07/25 at 1800, Last dose on Sat04/08/25 at 1000, Post-op/Post-Proc1 ml dexamethasone phosphate 10 mg/ml injection (2 sources)CorticosteroidStart: 04-07-2025 End: 25-22-713572 mg, Intravenous, ONCE, 1 dose, On Sat04/07/25 at 1700, Give dose #2 30 minutes prior to discharge. (dose #1 given pre-operatively by anesthesia), Post-op/Post-ProcStart: 04-07-2025 End: 45-17-1123tquy 10 mg intravenously once10 mg, Intravenous, INTRA-OP ONCE, Starting on Sat04/07/25 at 1232, Until Sat04/07/25 at 2150, Anesthesia provider to administer at induction., Intra-op/Intra-Proc1 ml diphenhydrAMINE hydrochloride 50 mg/ml cartridge (1 source)Histamine-1 Receptor AntagonistStart: 04-17-2025 End: 37-82-326424.5 mg, Intravenous, ONCE, 1 dose, On 04/17/25 at 0245 docusate sodium 50 mg / sennosides, snf 8.6 mg oral tablet (1 source)Start: 04-07-2025 End: 91-38-9653xwez 2 tablets by mouth twice daily as needed for constipation2 tablet, Oral, 2 TIMES DAILY NEEDED, Starting on Sat04/07/25 at 1232, Until Sat04/07/25 at 2150, constipation, Post-op/Post-Proc1 ml HYDROmorphone hydrochloride 1 mg/ml cartridge (5 sources)Opioid AgonistStart: 04-17-2025 End: mg, Intravenous, ONCE, 1 dose, On 04/17/25 at 0200Start: 04-07-2025 End: 79-35-7532nepd 0.5-1 mg intravenously every four hours as needed0.5-1 mg, Intravenous, EVERY 4 HOURS NEEDED, Starting on Sat04/07/25 at 1232, Until Sat04/07/25 at 2150, Severe Pain, Post-op/Post-ProcStart: 04-07-2025 End: 50.5 mg, Intravenous, EVERY 15 MINUTES NEEDED, 2 doses, Starting on Sat04/07/25 at 1145, Until Sat04/07/25 at 1206, Severe Pain, Recoveryibuprofen 600 mg oral tablet (3 sources)Nonsteroidal Anti-inflammatory Drug End: 64-61-5192lryx 1 tablet by mouth every six hoursIbuprofen 600 MG tablet Take 1 tablet by mouth every 6 hours. 04/07/2025 Discontinued (Therapy compl eted)iohexol (OMNIPAQUE) 350 MG/ML injection 75 mL (1 source)Start: 04-17-2025 End: mL, Intravenous, ONCE, 1 dose, On 04/17/25 at 0200, Extravasation Risk., Radiology Proceduremetoclopramide 5 mg oral tablet (14 sources)Dopamine-2 Receptor AntagonistStart: 03-19-2024 End: 70-05-2535kilkhtqdabevbx (REGLAN) 5 mg tablet Take 1 tablet [...] the amount of diluent recommended by the melon packer. Solution should be sipped slowly, over 5-10 minutes.Potassium Chloride / Sodium Chloride (1 source)Start: 04-17-2025 End: 96-64-091141 mEq, Intravenous, at 125 mL/hr, Administer over 4 Hours, ONCE, 1 dose, On 04/17/25 at 0145prochlorperazine 5 mg/ml injectable solution (1 source)PhenothiazineStart: 04-17-2025 End: 24-57-722626 mg, Intravenous, ONCE, 1 dose, On 04/17/25 at 0245, For IV route: dilute dose with 10mL normal saline and give by slow IV push at a rate of 5mg/min. Maximum of 40mg/day.Promethazine (PHENERGAN) 6.25 mg in Sodium chloride 0.9%, with overfill 60.25 mL (total volume) IVPB (1 source)Start: 04-07-2025 End: 94-31-0576wbxj 6.25 mg intravenously every hour as needed6.25 mg, Intravenous, at 180.8 mL/hr, Administer over 20 Minutes, EVERY 1 HOUR NEEDED, 2 doses, Starting on Sat04/07/25 at 1145, Until Sat04/07/25 at 2150, Other, Nausea and vomiting, Extravasation Risk, RecoveryROPivacaine HCl-NaCl 0.2-0.9 % On-Q pump (1 source)Start: 04-07-2025 End: 53-12-2345Nowp-neural, CONTINUOUS, Starting on Sat04/07/25 at 1200, Until Sat04/07/25 at 2150, Recovery to Continuesemaglutide, weight loss, (WEGOVY) 0.25 mg/0.5 mL pen injector (3 sources)Start: 08-31-2024 End: 77-64-6920vqpbbvmzner, weight loss, (WEGOVY) 0.25 mg/0.5 mL pen injector Indications: Class 1 obesity due to excess calories with serious comorbidity and body mass index (BMI) of 33.0 to 33.9 in adult Inject 0.5 mL (0.25 mg total) under the skin every 7 days. 2 mL 2 08/31/2024 10/13/2024 Discontinued (Dose ad justment)Start: 28-40-0933stkdguwruuw, weight loss, (WEGOVY) 0.25 mg/0.5 mL pen injector Indications: Class 1 obesity due to excess calories with serious comorbidity and body mass index (BMI) of 33.0 to 33.9 in adult Inject 0.5 mL (0.25 mg total) under the skin every 7 days. 2 mL 2 08/31/2024 Active semaglutide, weight loss, (WEGOVY) 0.5 mg/0.5 mL pen injector (3 sources)Start: 10-13-2024 End: 05-82-8473kulxbqumuct, weight loss, (WEGOVY) 0.5 mg/0.5 mL pen injector Indications: Class 1 obesity due to excess calories with serious comorbidity and body mass index (BMI) of 33.0 to 33.9 in adult Inject 0.5 mL (0.5 mg total) under the skin every 7 days. 2 mL 1 10/13/2024 11/11/2024 Discontinued (Dose adjustment)Start: 06-50-1816bsjnfwlkuzo, weight loss, (WEGOVY) 0.5 mg/0.5 mL pen injector Indications: Class 1 obesity due to excess calories with serious comorbidity and body mass index (BMI) of 33.0 to 33.9 in adult Inject 0.5 mL (0.5 mg total) under the skin every 7 days. 2 mL 1 10/13/2024 Activesemaglutide, weight loss, (WEGOVY) 1.7 mg/0.75 mL pen injector (5 sources)Start: 01-14-2024 End: 73-85-1753ksvulhevtch, weight loss, (WEGOVY) 1.7 mg/0.75 mL pen injector Indications: Class 2 severe obesity due to excess calories with serious comorbidity and body mass index (BMI) of 39.0 to 39.9 in adult ([facility]) Inject 0.75 mL (1.7 mg total) under the skin every 7 days. 3 mL 2 01/14/2024 03/19/2024 Discontinued (Side effects)Start: 32-55-8969uwdwqtobmxt, weight loss, (WEGOVY) 1.7 mg/0.75 mL pen injector Indications: Class 2 severe obesity due to excess calories with serious comorbidity and body mass index (BMI) of 39.0 to 39.9 in adult ([facility]) Inject 0.75 mL (1.7 mg total) under the skin every 7 days. 3 mL 2 01/14/2024 Bbzeix192 ml sodium chloride 9 mg/ml injection (2 [...] bag 1 Bag (1 source)Start: 04-07-2025 End: 93-11-8436okuij joint mixture (no clonidine) premade bag 1 Bagtranexamic acid 650 mg oral tablet (1 source)Antifibrinolytic AgentStart: 04-07-2025 End: 82-72-2767eadt 1 dose by mouth every two hours1,950 mg, Oral, ONCE DIRECTED, 1 dose, Starting on 04/07/25 at 0638, Until Sat04/07/25 at 0705, See admin instructions, Administer 2 hours preop, Pre-op/Pre-ProcWEGOVY 0.5 mg/0.5 mL pen injector (5 sources)Start: 11-07-2023 End: 24-34-7117yrrjtx 0.5 mL by subcutaneous injection every weekWEGOVY 0.5 mg/0.5 mL pen injector Indications: Morbid obesity ([facility]) Inject 0.5 mL (0.5 mg total) under the skin once a week. 2 mL 1 11/07/2023 11/12/2023 Discontinued (Dose adjustment)Start: 17-01-6574cywtgg 0.5 mL by subcutaneous injection every weekWEGOVY 0.5 mg/0.5 mL pen injector Indications: Morbid obesity ([facility] [facility] Inject 0.5 mL (0.5 mg total) under the skin once a week. 2 mL 1 11/07/2023 ActiveStart: 10-10-2023 End: 57-33-0170HXNKFQ 0.5 mg/0.5 mL pen injector INJECT 0.5 MG INTO THE SKIN EVERY 7 DAYS 10/10/2023 11/07/2023 Discontinued (Reorder)Start: 76-85-4698WWRDAH 0.5 mg/0.5 mL pen injector INJECT 0.5 MG INTO THE SKIN EVERY 7 DAYS 10/10/2023 Active Problems Active Problems Problem ClassificationProblemDateDocumented DateEpisodic/ChronicAnxiety disorders (20 sources)Generalized anxiety disorder; Translations: [Generalized anxiety disorder]Onset: 080272-01-1152VvycytaEfhgwb (20 sources)Mild intermittent asthma; Translations: [Mild intermittent asthma, uncomplicated]Onset: 115610-29-7431SnvwrtiZvposvvygr disorders (20 sources)Gastroesophageal reflux disease; Translations: [Gastro-esophageal reflux disease without esophagitis]Onset: 907614-95-4332TrbslgoOweuy and electrolyte disorders (4 sources)Hypokalemia; Translations: [Hypokalemia]Onset: EpisodicHeadache; including migraine (20 sources)Migraine without aura, not refractory ; Translations: [Migraine without aura, not intractable, without status migrainosus]Onset: 07-08-2020 39-50-9350HqfqkzhComvwrpwvpdwv and screening for infectious disease (2 sources)Vaccination needed; Translations: [Encounter for immunization] 72-24-1419VagxdlhxMdfa disorders (20 sources)Major depressive disorder; Translations: [Major depressive disorder, single episode, unspecified]Onset: 976912-15-8331SimwiumYrelay and vomiting (6 sources)Vomiting; Translations: [Nausea and vomiting]Onset: 03-15-2024 EpisodicOsteoarthritis (20 sources)Osteoarthritis of knee; Translations: [Unilateral primary osteoarthritis, unspecified knee]Onset: 02-47-715673041182-40-3672BdaqjomLuosb connective tissue disease (1 source)History of left total knee replacement; Translations: [Presence of left artificial knee joint]83-97-7975HytpcjnXmcrc connective tissue disease (2 sources)Presence of left artificial knee joint; Translations: [Presence of left artificial knee joint]Onset: 29-61-7085IrvjzwxGxfzp nervous system disorders (20 sources)Circadian rhythm sleep disorder of shift work type; Translations: [Circadian rhythm sleep disorder,shift work type]Onset: ChronicOther nervous system disorders (4 sources)Other acute postprocedural pain; Translations: [Pain in joint, lower leg]Onset: 954357-00-0934EpyzqeeqKxmnz nervous system disorders (1 source)Acute postoperative pain; Translations: [Other acute postprocedural pain]73-56-2339DvunefvfVfycy non-traumatic joint disorders (3 sources)Pain in left knee; Translations: [Pain in joint, lower leg]Onset: 217294-33-8853SksedaviHgxog non-traumatic joint disorders (2 sources)Pain in unspecified knee; Translations: [Pain in unspecified knee] Onset: 07-21-5758WmnpeoliSybej nutritional; endocrine; and metabolic disorders (1 source)Morbid (severe) obesity due to excess calories; Translations: [Morbid (severe) obesity due to excess calories]Onset: 98-08-7540HnaeowuOkrlr nutritional; endocrine; and metabolic disorders (1 source)Body mass index (BMI) 40.0-44.9, adult; Translations: [Body mass index (BMI) 40.0-44.9, adult]Onset: 44-69-7229BhifiwwApvgy nutritional; endocrine; and metabolic disorders (3 sources)Severe obesity; Translations: [Morbid (severe) obesity due to excess calories]03-19-7083BgqiycwJlamz nutritional; endocrine; and metabolic disorders (20 sources)Obesity caused by energy imbalance; Translations: [Class 1 obesity due to excess calories with serious comorbidity and body mass index (BMI) of 33.0 to 33.9 in adult]Onset: 259823-28-7482KrphgdvTnznk nutritional; endocrine; and metabolic disorders (10 sources)Obesity; Translations: [Obesity, unspecified]Onset: 03-19-2024 54-23-8500YdbbabmVaojn screening for suspected conditions (not mental disorders or infectious disease) (4 sources)Patient encounter status; Translations: [Encounter for screening for malignant neoplasm of colon]78-71-5925JgjoiqutWaqtb upper respiratory infections (1 source)Recurrent acute sinusitis; Translations: [Other acute recurrent sinusitis]65-43-2128MwiogzjhAogvctqy codes; unclassified (20 sources)Obstructive sleep apnea syndrome; Translations: [Obstructive sleep apnea (adult) (pediatric)]Onset: 660386-54-3075EglfafiYtrnefzbjtpp (2 sources)Left knee pain, unspecified vspbatvyww35-15-7314 Past or Other Problems Problem ClassificationProblemDateDocumented DateEpisodic/ChronicHeadache; including migraine (20 sources)Headache disorder; Translations: [Other headache syndrome]Onset: 372569-37-5309KfqwpviiQmexvhy and fatigue (1 source)Fatigue; Translations: [Other fatigue]85-71-6563AnxxamfmHqda disorders (20 sources)Mood disordersOnset: 10-15-2023 Resolved: Other gastrointestinal disorders (1 source)History of bariatric surgical procedure; Translations: [Bariatric surgery status]Onset: 323238-35-5012CdetqkvqQuqzu nervous system disorders (16 sources)Tremor; Translations: [Tremor, unspecified]Onset: 12-03-2024 54-33-6931ElfmormhWimrd nutritional; endocrine; and metabolic disorders (20 sources)Morbid obesity; Translations: [Morbid (severe) obesity due to excess calories]Onset: 09-21-2015 Resolved: 502178-69-9088AycdmgkMtbxkluzx and history of mental health and substance abuse codes (1 source)Ex-cigarette smoker; Translations: [Personal history of nicotine dependence]79-90-4010GkwzaktdJxbtztqcxag; intervertebral disc disorders; other back problems (20 sources)Chronic low back pain; Translations: [Chronic bilateral low back pain without sciatica]Onset: 955769-14-2638VuwaxcjxOsdffprxybse (5 sources)Onset: 978110-14-5922Jkffkxugqppm (1 source)Acute postoperative pain of left fgby93-85-8685Ywohhtqutxma (2 sources)History of left total knee nxhvwneznot23-95-0844 Results Test NameValueInterpretationReference RangeFacilityCBCon [id number] BAS 0.0 10*3/uLNormal0.0-0.2AHudson County Meadowview HospitalComment on above:Performed By: #### PTT, MG, PT, ACBC, CMPF #### Testing performed at [address] [address]BQQQSPUL EOS0.3 10*3/uLNormal0.0-0.7AHudson County Meadowview Hospital Comment on above:Performed By: #### PTT, MG, PT, ACBC, CMPF #### Testing performed at [address] [address]QLSNPPWX NEUTROPHIL COUNT4.3 10*3/uLNormal1.4-6.5AHudson County Meadowview HospitalComment on above:Performed By: #### PTT, MG, PT, ACBC, CMPF #### Testing performed at [address] [address]Rinjkdzog/100 WBC (Bld)0.3 %Normal0.0-2.0[facility] Comment on above:Performed By: #### PTT, MG, PT, ACBC, CMPF #### Testing performed at [address] [address]EZHHSHRBW DIFFNormalAHudson County Meadowview HospitalComment on above: Performed By: #### PTT, MG, PT, ACBC, CMPF #### Testing performed at [address] [address]Npivvmfgjnn/100 WBC (Bld)3.7 %Normal0.0-11.0[facility]esComment on above:Performed By: #### PTT, MG, PT, ACBC, CMPF #### Testing performed at [address] [address]Truheetpyzb (Bld) [#/Vol]2.0 10*3/uLNormal1.2-3.4AHudson County Meadowview HospitalComment on above:Performed By: #### PTT, MG, PT, ACBC, CMPF #### Testing performed at [address] [address]Fombdnwbapv/100 WBC (Bld)26.9 %Wzgcqm07.0-55.0[facility]esComment on above:Performed By: #### PTT, MG, PT, ACBC, CMPF #### Testing performed at [address] [address]Iddmrdtwq (Bld) [#/Vol]0.8 10*3/uLHigh0.0-0.7ASelect Medical Specialty Hospital - Cincinnatiment on above:Performed By: #### PTT, MG, PT, ACBC, CMPF #### Testing performed at [address] [address]Gfqosnuha/100 WBC (Bld)11.0 %High0.0-10.0[facility] Comment on above:Performed By: #### PTT, MG, PT, ACBC, CMPF #### Testing performed at [address] [address]Ldhejeteokv/100 WBC (Bld)58.1 %Xkoytm80.0-75.0JFK Medical Centerment on above:Performed By: #### PTT, MG, PT, ACBC, CMPF #### Testing performed at [address] [address]Almxjgjatvi distribution width (RBC) [Ratio]13.4 %Normal 11.5-14.5ASelect Medical Specialty Hospital - Cincinnatiment on above:Performed By: #### PTT, MG, PT, ACBC, CMPF #### Testing performed at [address] [address]Wxdcfkkubd (Bld) [Volume fraction]31.7 %Low36.0-48.0J[facility] Medical Centerment on above:Performed By: #### PTT, MG, PT, ACBC, CMPF #### Testing performed at [address] [address]Jrasgfjibs (Bld) [Mass/Vol]10.7 g/dLLow12.0-16.0[facility]esComment on above:Performed By: #### PTT, MG, PT, ACBC, CMPF #### Testing performed at [address] [address]UAT (RBC) [Entitic mass]31.6 xcDeduie69.0-35.0[facility] HospitalComment on above:Performed By: #### PTT, MG, PT, ACBC, CMPF #### Testing performed at [address] [address]MTXA (RBC) [Mass/Vol]33.9 g/iISzjzep22.0-37.0[facility] HospitalComment on above:Performed By: #### PTT, MG, PT, ACBC, CMPF #### Testing performed at [address] [address]ABB (RBC) [Entitic vol]93.3 aEFhasbg37.0-100.0[facility]esComment on above:Performed By: #### PTT, MG, PT, ACBC, CMPF #### Testing performed at [address] [address]Llaliykb mean volume (Bld) [Entitic vol]8.2 fLNormal7.4-11.0 [facility]esComment on above:Performed By: #### PTT, MG, PT, ACBC, CMPF #### Testing performed at [address] [address]Ufvzopqll (Bld) [#/Vol]462 10*3/kHBakg025-090VzrygVirtua VoorheesComment on above:Performed By: #### PTT, MG, PT, ACBC, CMPF #### Testing performed at [address], [place] [address]NCL (Bld) [#/Vol]3.40 10*6/uLLow4.0-5.4AIn[facility] on above:Performed By: #### PTT, MG, PT, ACBC, CMPF #### Testing performed at [address] [address]MRV (Bld) [#/Vol]7.4 10*3/uLNormal3.6-11.0[facility]esComment on above:Performed By: #### PTT, MG, PT, ACBC, CMPF #### Testing performed at [facility] [address] [facility], [place] [address]MRU, EDIF, PLATELETon 81-51-8058BYQRLPQM BASOPHIL COUNT0.0 10*3/uL0.0 - 0.2 10*3/uLKindred HealthcareBasophils/100 WBC (Bld)0.3 %0.0 - 2.0 %[facility]red HealthcareDifferential cell count method Nom (Bld)AUTO DIFF%Kindred HealthcareEosinophils (Bld) [#/Vol]0.3 10*3/uL0.0 - 0.7 10*3/uLKindred HealthcareEosinophils/100 WBC (Bld)3.7 %0.0 - 11.0 %[facility]red HealthcareErythrocyte distribution width (RBC) [Ratio]13.4 %11.5 - 14.5 %[facility]red HealthcareHematocrit (Bld) [Volume fraction]31.7 %Low36.0 - 48.0 %[facility]red HealthcareHemoglobin (Bld) [Mass/Vol]10.7 g/dLLowKindred HealthcareInterpretation and review of laboratory resultsAbnormFisher-Titus Medical CenterLymphocytes (Bld) [#/Vol]2.0 10*3/uL1.2 - 3.4 10*3/uLKindred HealthcareLymphocytes/100 WBC (Bld)26.9 %20.0 - 55.0 %[facility]red HealthcareMCH (RBC) [Entitic mass]31.6 pg26.0 - 35.0 PGASt. Francis HospitalMCHC (RBC) [Mass/Vol]33.9 g/dLKindred HealthcareMCV (RBC) [Entitic vol]93.3 [facility] HospitalMonocytes (Bld) [#/Vol]0.8 10*3/uLHigh0.0 - 0.7 10*3/uLKindred HealthcareMonocytes/100 WBC (Bld)11.0 %High0.0 - 10.0 %[facility] SystemNeutrophils (Bld) [#/Vol]4.3 10*3/uL1.4 - 6.5 10*3/[facility] CenterNeutrophils/100 WBC (Bld)58.1 %37.0 - 75.0 %[facility]red HealthcarePlatelet mean volume (Bld) [Entitic vol]8.2 [facility] SystemPlatelets (Bld) [#/Vol] 462 10*3/jRCajw652 - 400 10*3/[facility] SystemRBC (Bld) [#/Vol]3.40 10*6/uL Low4.0 - 5.4 10*6/[facility] Medical CenterWBC (Bld) [#/Vol]7.4 10*3/uL3.6 - 11.0 10*3/[facility] HospitalCMP FASTINGon 04-17-2025:G RATIO 1.2 RATIONormalVirtua VoorheesComment on above:Performed By: #### PTT, MG, PT, ACBC, CMPF #### Testing performed at [address] [address]Onwjgji [Mass/Vol]3.6 g/dLNormal3.5-5.0[facility] Comment on above:Performed By: #### PTT, MG, PT, ACBC, CMPF #### Testing performed at [address] [address]TRC [Catalytic activity/Vol]146 U/MVojr70-249AadeaVirtua VoorheesComment on above:Performed By: #### PTT, MG, PT, ACBC, CMPF #### Testing performed at [address] [address]MCR [Catalytic activity/Vol]15 U/LNormal<35[facility]esComment on above:Performed By: #### PTT, MG, PT, ACBC, CMPF #### Testing performed at [address] [address]LUL [Catalytic activity/Vol]24 U/MGjyhjg14-86EdxnuVirtua VoorheesComment on above:Performed By: #### PTT, MG, PT, ACBC, CMPF #### Testing performed at [address] [address]Ubuvscltb [Mass/Vol]0.8 mg/dLNormal0.2-1.3AHudson County Meadowview HospitalComment on above:Performed By: #### PTT, MG, PT, ACBC, CMPF #### Testing performed at [address] [address]Tvbojnk [Mass/Vol]9.5 mg/dLNormal8.4-10.2AHudson [facility]ow[facility] Comment on above:Performed By: #### PTT, MG, PT, ACBC, CMPF #### Testing performed at [address] [address]Jiwkzpse [Moles/Vol]105 mmol/KUieivt99-484PsstkVirtua VoorheesComment on above:Result Comment: Please note: Triglyceride levels of 600mg/dL or higher may positively bias chlorideresults by approximately 2.1 mmol Performed By: #### PTT, MG, PT, ACBC, CMPF #### Testing performed at [address] [address]HM1 [Moles/Vol]23 mmol/MHhjnwq79-66BqroeVirtua [facility] Comment on above:Performed By: #### PTT, MG, PT, ACBC, CMPF #### Testing performed at [address] [address]Wdztbhhfex [Mass/Vol]0.60 mg/dLLow0.70-1.20[facility]esComment on above:Performed By: #### PTT, MG, PT, ACBC, CMPF #### Testing performed at [address] [address]YRY InformationAverage GFR for 50-59 years old = 93.NormalVirtua VoorheesComment on above:Result Comment: Chronic Kidney disease, GFR = <60. Kidney failure, GFR = <15. The GFR estimate is not adjusted for extreme body surface area or acute process, nor has it been validated for women or ethnic groups other than and . MDRD EquationPerformed By: #### PTT, MG, PT, ACBC, CMPF #### Testing performed at [address] [address]CEP/1.73 sq M.predicted MDRD (S/P/Bld) [Vol rate/Area]109 mL/min/{1.73_m2}NormalVirtua VoorheesComment on above:Performed By: #### PTT, MG, PT, ACBC, CMPF #### Testing performed at [address] [address]Kyohttr [Mass/Vol]122 mg/sYMscu86-489CsdojVirtua Voorhees Comment on above:Result Comment: NORMAL <100 mg/dL PREDIABETES 101-126 mg/dL DIABETES 126 mg/dL or higherPerformed By: #### PTT, MG, PT, ACBC, CMPF #### Testing performed at [address] [address]Dymantdma [Moles/Vol]3.0 mmol/LLow3.5-5.1AHudson [facility]ow[facility] Hospital Comment on above:Performed By: #### PTT, MG, PT, ACBC, CMPF #### Testing performed at [address] [address]Mzkixvf [Mass/Vol]6.6 g/dLNormal6.3-8.2AHudson [facility] Comment on above:Performed By: #### PTT, MG, PT, ACBC, CMPF #### Testing performed at [address] [address]Szdnbz [Moles/Vol]140 mmol/SAdrwxw104-081KllzwVirtua [facility]es Comment on above:Performed By: #### PTT, MG, PT, ACBC, CMPF #### Testing performed at [address] [address]Bmit nitrogen [Mass/Vol]7 mg/dLNormal7-20[facility] Comment on above:Performed By: #### PTT, MG, PT, ACBC, CMPF #### Testing performed at [address] [address]UXFXYGFMBYZAG METABOLIC PANELon 51-20-6863Jswdoeh [Mass/Vol]3.6 g/dL3.5 - 5.0 g/dLPremier Health SystemAlbumin/Globulin [Mass ratio]1.2 {ratio} RATIOKindred HealthcareALP [Catalytic activity/Vol]146 U/LHigh38 - 126 U/[facility] HospitalALT [Catalytic activity/Vol]15 U/LNINF - 35 U/[facility] AST [Catalytic activity/Vol]24 U/L14 - 36 U/[facility] HospitalBilirubin [Mass/Vol]0.8 mg/dL0.2 - 1.3 mg/dLKindred HealthcareCalcium [Mass/Vol]9.5 mg/dL 8.4 - 10.2 mg/dLKindred HealthcareChloride [Moles/Vol]105 mmol/[facility] HospitalComment on above:Please note: Triglyceride levels of 600mg/dL or higher may positively bias chloride results by approximately 2.1 mmolCO2 [Moles/Vol]23 mmol/[facility] HospitalCreatinine [Mass/Vol]0.60 mg/dLLow0.70 - 1.20 mg/dL Kindred HealthcareGFR COMMENTAverage GFR for 50-59 years old = 93.Kindred HealthcareComment on above:Chronic Kidney disease, GFR = <60. Kidney failure, GFR = <15. The GFR estimate is not adjusted for extreme body surface area or acute process, nor has it been validated for women or ethnic groups other than and . MDRD Equation GFR/1.73 sq M.predicted MDRD (S/P/Bld) [Vol rate/Area]109 mL/min/{1.73_m2} ml/min/1.73sq.[facility] SouthGlucose post fast [Mass/Vol]122 mg/dLHighKindred HealthcareComment on above: NORMAL <100 mg/dL PREDIABETES 101-126 mg/dL DIABETES 126 mg/dL or higher Interpretation and review of laboratory resultsAbnormalASt. [facility] Hospital Potassium [Moles/Vol]3.0 mmol/LLowASt. John of God Hospital SystemProtein [Mass/Vol]6.6 g/dL 6.3 - 8.2 g/dLDayton VA Medical Centerodium [Moles/Vol]140 mmol/[facility] Urea nitrogen [Mass/Vol]7 mg/dL7 - 20 mg/dLKindred HealthcareCT ABDOMEN/PELVIS WITH CONTRASTon [id number] ABDOMEN/PELVIS WITH CONTRASTCT OF THE ABDOMEN AND [...] findings or inflammatory change. 3. Prior gastric bypass.[facility] Abdomen and Pelvis W contrast Angelina 23-29-8760UUVWFWZWCZ: 1. Moderate compact feces throughout. Possible constipation. [...] or inflammatory change. 3. Prior gastric bypass. Kindred HealthcareRadiology Study observation (narrative)[facility] W contrast IVOrdered By: Rakan Cheema on 92-29-0348CzztjSt. Francis Hospital Work Phone: KYCTATE, BLOODon 75-40-3033Cxnlfxbbqhkcth and review of laboratory resultsAbnormFisher-Titus Medical CenterLactate [Moles/Vol]2.6 mmol/L Critically high0.7 - 2.0 mmol/[facility] SystemComment on above:PLEASE REPEAT INITIAL CRITICAL IN 3 HOURS IF ED OR INPATIENT SEPSIS PATIENT Result called to read back by: Bessy DE LA CRUZ 04/17/2025 @ 01:08 by [facility] HospitalCTATE,BLOODon 26-33-8282Tmdvqyj [Moles/Vol]2.6 mmol/L Critically high0.7-2.0[facility]esComment on above:Result Comment: PLEASE REPEAT INITIAL CRITICAL IN 3 HOURS IF ED OR INPATIENT SEPSIS PATIENT Result called to read back by: Bessy DE LA CRUZ 04/17/2025 @ 01:08 by [facility] HOSPITALerformed By: #### PT #### Testing performed at [address] [address]SXGVNOPDLbb 06-63-9256Yktfiwabm [Mass/Vol]1.7 mg/dLKindred HealthcareMagnesium [Mass/Vol]1.7 mg/dLNormal1.6-2.3AHudson County Meadowview HospitalComment on above:Performed By: #### PTT, MG, PT, ACBC, CMPF #### Testing performed at [address], [place] [address]Ci Panel Informationon 46-07-4664QqxlwUniversity Hospitals Portage Medical CenterPROTIMEon 00-95-8032UNA Coag (PPP) [Relative time]0.95 {INR}Normal 0.85-1.10AHudson County Meadowview HospitalComment on above:Result Comment: 2.0-3.0 THERAPEUTIC RANGE 2.5-3.5 MECHANICAL VALVE RANGEPerformed By: #### PTT, MG, PT, ACBC, CMPF #### Testing performed at [address] [address]ES Coag (PPP) [Time]12.7 eKuoztc01.8-14.4AHudson County Meadowview Hospital Comment on above:Performed By: #### PTT, MG, PT, ACBC, CMPF #### Testing performed at [address], [place] [address]EAPESNZ-EUWgw 05-93-4605ROD Coag (PPP) [Relative time]0.95 {INR}0.85 - 1.10ASt. Francis HospitalComment on above: 2.0-3.0 THERAPEUTIC RANGE 2.5-3.5 MECHANICAL VALVE RANGE PT Coag (PPP) [Time]12.7 [facility] HospitalPTQu[facility] 36-69-3234rTDO Coag (Bld) [Time]33.5 [facility] HospitalComment on above: CARDIAC AND PE/DVT THERAPUTIC RANGE 69-97 SEC VASCULAR/THREATENED LIMB THERAPUTIC RANGE 80-112 SEC aPTT Coag (Bld) [Time]33.5 zYgzyzu76.4-34.7AHudson County Meadowview HospitalComment on above:Result Comment: CARDIAC AND PE/DVT THERAPUTIC RANGE 69-97 SEC VASCULAR/THREATENED LIMB THERAPUTIC RANGE 80-112 SECPerformed By: #### PTT, MG, PT, ACBC, CMPF #### Testing performed at [address] [address]CV KNEE LEFT 1-2 VIEWSon 29-94-4746KF KNEE LEFT 1-2 VIEWSEXAM: XR KNEE LEFT 1-2 VIEWS HISTORY: postop COMPARISON: None. IMPRESSION: 1. No acute fracture or malalignment. 2. Arthroplasty. No evidence of acute hardware complication. Postsurgical changes within the adjacent soft tissues. 3. Tiny quadriceps enthesophyte.NormalVirtua VoorheesRAPID TOX SCREEN,URINEon 54-16-9646JSNXVKVNUVRXucaywhtFatyycNNZSOMBDTlrws [facility] Comment on above:Result Comment: <500 ng/ml CUTOFFPerformed By: #### PT #### Testing performed at [address] [address]CYGOPFXCALCLYcrfgvvlDbuqhmCGIULNEQDdaho [facility] HospitalComment on above:Result Comment: <200 ng/ml CUTOFFPerformed By: #### PT #### Testing performed at [address] [address]DZSBUYVPQCINWGTXeccmtmiHocnshlpEZJBBHMLZhzeh [facility] Comment on above:Result Comment: <200 ng/ml CUTOFF *Unconfirmed Screening Result* Unconfirmed screening results are to be used only for medical treatment purposes.Performed By: #### PT #### Testing performed at [address] [address]AVGFTIJNVWWCDOwzdfagmOrrpnpJJELCMKOSkume [facility] Comment on above:Result Comment: <10 ng/ml CUTOFFPerformed By: #### PT #### Testing performed at [address] [address]VHGQRVMGOKSKRiogbzzjNzmbxrrdOJTUPIAOSkwef [facility] Comment on above:Result Comment: <50 ng/ml CUTOFF *Unconfirmed Screening Result* Unconfirmed screening results are to be used only for medical treatment purposes.Performed By: #### PT #### Testing performed at [address] [address]DBJZRFFQvewnbfdVlghxgFUNFQXTBDwepaCarney HospitalComment on above:Result Comment: <150 ng/ml CUTOFFPerformed By: #### PT #### Testing performed at [address] [address]WFZLAGQNFazygpsfFjzwpuQDDUECXFHimkh [facility] HospitalComment on above:Result Comment: 1.0 ng/mL CUTOFF *Unconfirmed Screening Result* Unconfirmed screening results are to be used only for medical treatment purposes. This test has not been approved by the FDA. Performed By: #### PT #### Testing performed at [address], [place] [address]WCBTJWEHJ METABOLITENegativeNormalNEGVirtua Our Lady of Lourdes Medical CenterComment on above:Result Comment: <100 ng/ml CUTOFFPerformed By: #### PT #### Testing performed at [address] [place] [address]VNGORDUJBYFLOHXYtrxximqXlyvygYADOTFAQVxxqq [facility] Comment on above:Result Comment: <500 ng/ml CUTOFFPerformed By: #### PT #### Testing performed at [address] [address]YOBRNYETelnlmnxFgjpayXGGQPIGNAhcso [facility] HospitalComment on above:Result Comment: <300 ng/ml CUTOFFPerformed By: #### PT #### Testing performed at [address] [place] [address]BKWZIHEHYRiugjlbjNhtujxCWOVDVWQPryda [facility] HospitalComment on above:Result Comment: <100 ng/ml CUTOFFPerformed By: #### PT #### Testing performed at [address] [place] [address]JQIKCQNHQ ANTIDEPRESSANTSNegativeNormalNEGVirtua Our Lady of [facility]our[facility] Medical CenterComment on above:Result Comment: <1000 ng/ml CUTOFFPerformed By: #### PT #### Testing performed at [address], [place] [address]IVMJYFHFIY DRUG SCREEN, URINEon 39-75-4345Hebqiwzwoejy Screen Ql (U)NegativeNEGATIVE NG/MLAvita Health SystemComment on above:<500 ng/ml CUTOFFBarbiturates Screen Ql (U)NegativeNEGATIVE NG/MLAvita Health SystemComment on above:<200 ng/ml CUTOFFBenzodiazepinesPositiveAbnormalNEGATIVE NG/MLAvita Health SystemComment on above:<200 ng/ml CUTOFF *Unconfirmed Screening Result* Unconfirmed screening results are to be used only for medical treatment purposes. BuprenorphineNegativeNEGATIVE NG/MLRio Grande HospitalBeyond.com SystemComment on above:<10 ng/ml CUTOFFCannabinoids Screen Ql (U)PositiveAbnormalNEGATIVE NG/MLRio Grande Hospitalta Adku SystemComment on above:<50 ng/ml CUTOFF *Unconfirmed Screening Result* Unconfirmed screening results are to be used only for medical treatment purposes. CocaineNegativeNEGATIVE NG/MLRio Grande Hospitalta Adku SystemComment on above:<150 ng/ml CUTOFFFentanylNegativeNEGATIVE NG/MLRio Grande Hospitalta Adku SystemComment on above:1.0 ng/mL CUTOFF *Unconfirmed Screening Result* Unconfirmed screening results are to be used only for medical treatment purposes. This test has not been approved by the FDA. Interpretation and review of laboratory resultsAbnoUC Health Methadone+Metabolite Screen Ql (U)NegativeNEGATIVE NG/MLRio Grande HospitalBeyond.com System Comment on above:<100 ng/ml CUTOFFMethamphetamine Ql (U)NegativeNEGATIVE NG/ML [facility] HospitalBeyond.com SystemComment on above:<500 ng/ml CUTOFFOpiates Ql (U)Negative NEGATIVE NG/MLRio Grande HospitalBeyond.com SystemComment on above:<300 ng/ml CUTOFFOxycodone ConfirmationNegativeNEGATIVE NG/MLRio Grande HospitalBeyond.com SystemComment on above:<100 ng/ml CUTOFFTricyclic Antidepressants, UrineNegativeNEGATIVE NG/MLRio Grande HospitalBeyond.com System Comment on above:<1000 ng/ml CUTOFFRio Grande [email or web address].com [facility] HospitalCMP Standardon 03-08-2025 eGFR Non AA>60Invalid Interpretation [facility] HospitalComment on above: Performed By: #### [id number], [id number], 5795446, 7276363, 0908692, [id number], 9750838 #### [facility] (DEFAULT) [address] [place] [address] 47032tHQO AA>[id number] Interpretation [facility] Comment on above:Performed By: #### 7851166, [id number], 2899238, 5845178, 2372177, [id number], 6405997 #### [facility] (DEFAULT) [address] [place] [address] 02031Mqrnnrw [Mass/Vol]3.6 g/dLNormal3.5-5.0[facility] Comment on above:Performed By: #### 7312246, [id number], 0792549, 7914444, 0193876, 5063226513, 9513138 #### [facility] (DEFAULT) [address] [place] [address] 68262Zya Phos92 IU/WDowg75-01Pxsoqffk HospitalComment on above: Performed By: #### 3444326, [id number], 8397797, 1092623, 8794735, 5030723743, 2043987 #### [facility] (DEFAULT) [address] [place] [address] 75341HRK [Catalytic activity/Vol]13.0 U/LLow14.0-54.0[facility] HospitalComment on above:Performed By: #### 2079852, [id number], 2725664, 5298543, 9839800, 9564677029, 6047041 #### [facility] (DEFAULT) [address] [place] [address] 70496WFC [Catalytic activity/Vol]18 U/QRnvarg92-79Uonpywcb HospitalComment on above:Performed By: #### 1132950, [id number], 6139314, 3818771, 5774368, 9292374417, 0885762 #### [facility] (DEFAULT) [address] [place] [address] 46352Jcgf Total0.8 mg/dLNormal0.3-1.2[facility] HospitalComment on above:Performed By: #### 4262905, [id number], 5007442, 3135885, 8633381, 8467598503, 8980221 #### [facility] (DEFAULT) [address] [place] [address] 71602Lnqohyw [Mass/Vol]9.1 mg/dLNormal8.9-10.3[facility] Hospital Comment on above:Performed By: #### 3020309, 1883009470, 0764657, 1205732, 1222339, 7389029992, 1242501 #### [facility] (DEFAULT) [address] [place] [address] 10468Obfcpoex [Moles/Vol]102 mmol/WYqykcp807-279Qfoygksu HospitalComment on above:Performed By: #### 8248176, [id number], 3273066, 3549529, 5981712, 4099108197, 0199437 #### [facility] (DEFAULT) [address] [place] [address] 37173VD7 [Moles/Vol]26 mmol/MNcutwx76-04[facility] Hospital Comment on above:Performed By: #### 5036433, [id number], 3616003, 8599853, 7908583, 6261161633, 7272428 #### [facility] (DEFAULT) [address] [place] [address] 64116Jmfahqmqts [Mass/Vol]0.63 mg/dLNormal0.60-1.30[facility] HospitalComment on above:Performed By: #### 8753224, 4834356510, 9054875, 3663617, 2386398, 8799552439, 9622318 #### [facility] (DEFAULT) [address] [place] [address] 96647Htauqhl [Mass/Vol]76.0 mg/kDIgnnhg56.0-118.0[facility] HospitalComment on above:Performed By: #### 0390470, 0949250569, 7430260, 7823099, 7761775, 3544832947, 2452909 #### [facility] (DEFAULT) [address] [place] [address] 26440Gqcryains [Moles/Vol]3.7 mmol/LNormal3.6-5.1[facility] HospitalComment on above:Performed By: #### 5922983, 1888398893, 2341366, 0501401, 7389487, 9389439496, 9345709 #### [facility] (DEFAULT) [address] [place] [address] 54904Hygvmrc [Mass/Vol]6.6 g/dLNormal6.5-8.1[facility] Hospital Comment on above:Performed By: #### 8842834, [id number], 0648090, 1742744, 5704722, 3534080329, 4318383 #### [facility] (DEFAULT) [address] [place] [address] 52354Fhppyb [Moles/Vol]134.0 mmol/GRrd982.0-144.0[facility] HospitalComment on above:Performed By: #### 8854369, 6258118888, 9141810, 0247074, 1124362, 5929038240, 9660312 #### [facility] (DEFAULT) [address] [place] [address] 75981Pkbq nitrogen [Mass/Vol]10 mg/dLNormal8-26[facility] HospitalComment on above:Performed By: #### 9447765, 9860139616, 2791594, 0411070, 6137455, 9159673898, 0240606 #### [facility] (DEFAULT) [address] [place] [address] 32306Rvcvzuy/Globulin [Mass ratio]1.2 {ratio}Low1.4-2.6Magruniversity [facility] HospitalComment on above:Performed By: #### 1265286, 0639920681, 2666976, 8273710, 0851595, 0694279634, 6610968 #### [facility] (DEFAULT) [address] [place] [address] 77267Qpztd gap [Moles/Vol]9.7 mmol/LNormal5.0-19.0[facility] HospitalComment on above:Performed By: #### 6080793, 7181855502, 0280838, 7483511, 0460045, 5458620908, 3335178 #### [facility] (DEFAULT) [address] [place] [address] 29441Mfbixuzh (S) [Mass/Vol]3.0 g/dLNormal1.5-4.3Magruniversity [facility] HospitalComment on above:Performed By: #### 4533879, 2198629542, 3308236, 9803619, 1505770, 5298130701, 4306005 #### [facility] (DEFAULT) [address] [place] [address] 90119Kexfinqryc031 mOsm/LInvalid Interpretation CodeRegency Hospital [facility] HospitalComment on above:Performed By: #### 0890475, 1201168028, 6154135, 2120731, 6235424, 6193511124, 4268755 #### [facility] (DEFAULT) [address] [place] [address] 26593Prir nitrogen/Creatinine [Mass ratio]15.8 mg/mgNormal 4.6-16.2[facility] HospitalComment on above:Performed By: #### 9007375, 5096112190, 0018493, 6740368, 9819344, 8654074533, 7497116 #### [facility] (DEFAULT) [address] [place] [address] 83742NCAda 04-41-1285Jydgf glutamyl transferase [Catalytic activity/Vol]35.0 U/LNormal7.0-50.0[facility] HospitalComment on above:Performed By: #### 1420070, 3943261463, 5396978, 2025340, 0359916, 6976797148, 1675613 #### [facility] (DEFAULT) [address] [place] [address] 61817Tfkd Levelon 34-21-7481Fstu [Mass/Vol]47.0 ug/dLNormal 28.0-170.0[facility] HospitalComment on above:Performed By: #### 9020745, 1500851901, 0205799, 8416269, 8054941, 1921158589, 2925281 #### [facility] (DEFAULT) [address] [place] [address] 54435ZRElm 25-52-4568CUQ718.0 IU/SItaucm28.0-192.0[facility] HospitalComment on above:Performed By: #### 2110999, 9629751159, 0897288, 6359798, 8277119, 2876822757, 2953210 #### [facility] (DEFAULT) [address] [place] [address] 99496Amfcp Panel Standardon 29-46-4500Tqggpjwdujt [Mass/Vol] 180.0 mg/mOChbsuy18.0-200.0[facility] HospitalComment on above:Performed By: #### 9027685, 2600791453, 6507733, 2521274, 8357598, 0773201768, 1918726 #### [facility] (DEFAULT) [address] [place] [address] 20268Crpgvtysstu in HDL [Mass/Vol]54 mg/fPJhgtns97-13Xikhyhyk HospitalComment on above:Performed By: #### 3683393, 1452096242, 3854176, 5926345, 0690067, 6060500508, 3691066 #### [facility] (DEFAULT) [address] [place] [address] 10283Qygqvshtgdgw [Mass/Vol]137.0 mg/dLNormal0.0-150.0[facility] HospitalComment on above:Performed By: #### 7141490, 6147203824, 8961426, 3131372, 9439417, 3244114615, 3731918 #### [facility] (DEFAULT) [address] [place] [address] 20510Mmxjmjaonml in LDL [Mass/Vol]98 mg/dLNormal1-100[facility] HospitalComment on above:Performed By: #### 1391273, 7930380146, 8052397, 9912107, 2389912, 6736647228, 8005942 #### [facility] (DEFAULT) [address] [place] [address] 28356Ptbbxtkjfnx.total/Cholesterol in HDL [Mass ratio]3.3 {ratio}Normal0.0-4.5[facility] HospitalComment on above:Performed By: #### 8500561, 9702253531, 0374515, 9820869, 1180691, 5999358821, 3040413 #### [facility] (DEFAULT) [address] [place] [address] 87496QXTF.27 mg/dLNormal5-40[facility] HospitalComment on above: Performed By: #### 5241695, 7256592210, 8636005, 2236905, 5771435, 3753222370, 3050761 #### [facility] (DEFAULT) [address] [place] [address] 47504Guiioc 72-71-0168Mtbopjaja [Mass/Vol]3.0 mg/dLNormal 2.5-4.6Magruniversity hospitals [facility] HospitalComment on above:Performed By: #### 3280120, 6906207030, 2921357, 7671611, 2252010, 3394594103, 7134303 #### [facility] (DEFAULT) [address] [place] [address] 19391Hken Acidon 51-31-6504Bssmg [Mass/Vol]4.8 mg/dLNormal 2.6-8.0[facility] HospitalComment on above:Performed By: #### 4358290, 7715597686, 5861544, 9960238, 8149180, 3646766229, 8164672 #### [facility] (DEFAULT) [address] [place] [address] 86702VTHOJWRPCI A1Con 01-42-9649Ziutubo [Mass/Vol]111 mg/dL NormalVirtua VoorheesComment on above:Performed By: #### PT #### Testing performed at [address] [address]ToY2k (Bld) [Mass fraction]5.5 %[address] Comment on above:Result Comment: NORMAL <5.7% PREDIABETES 5.7-6.4% DIABETES 6.5% OR HIGHERPerformed By: #### PT #### Testing performed at [address] [address]ISSQ SCREENon 54-57-4219QYJU DNA NORAH+probe Ql (Unsp spec) NegativeNormalNEGVirtua Our Lady of Lourdes Medical CenterComment on above:Performed By: #### MRSAST #### Testing performed at [address] [address]ROQHF AUREUS SCREENNegativeNormalNEGVirtua Our [facility] Comment on above:Result Comment: TESTING PERFORMED BY PCRPerformed By: #### MRSAST #### Testing performed at [address] [place] [address]ILITCYPtm 74-88-1065ZQQ Coag (PPP) [Relative time]0.89 {INR} Normal0.85-1.10AHudson County Meadowview HospitalComment on above:Result Comment: 2.0-3.0 THERAPEUTIC RANGE 2.5-3.5 MECHANICAL VALVE RANGEPerformed By: #### PT #### Testing performed at [address] [address]MB Coag (PPP) [Time]12.1 lDlvgok00.8-14.4AHudson [facility] Comment on above:Performed By: #### PT #### Testing performed at [address] [place] [address]YDYGO MACROSCOPICon 29-95-4107Vbifyqylw Ql (U)NegativeNormal NEGATIVEVirtua VoorheesComment on above:Performed By: #### UMAC #### Testing performed at [address] [address]Dazxndu (U)CLEARNormalCLEARVirtua VoorheesComment on above:Performed By: #### UMAC #### Testing performed at [address], [place] [address]Hukdv (U)YELLOWNormalYELLOWVirtua VoorheesCommymichigan medical center clare on above:Performed By: #### UMAC #### Testing performed at [address] [place] [address]Gpohxue Ql (U)NegativeNormalNEGVirtua [facility] Comment on above:Performed By: #### UMAC #### Testing performed at [address], [place] [address]sU (U)6.0 [pH]Normal5.0-7.0Virtua VoorheesComment on above:Performed By: #### UMAC #### Testing performed at [address] [place] [address]OJAKR HEMOGLOBINNegativeNormalNEGVirtua Our [facility] of [facility] Center Comment on above:Performed By: #### UMAC #### Testing performed at [address] [place] [address]OGIBH KETONENegativeNormalNEGATIVEVirtua VoorheesComment on above:Performed By: #### UMAC #### Testing performed at [address] [address]VDGGL LEUKOTESTNegativeNormalNEGVirtua [facility] Comment on above:Performed By: #### UMAC #### Testing performed at [address] [address]GBPYF NITRATESNegativeNocritical access hospitalNEGVirtua Our [facility] Comment on above:Performed By: #### UMAC #### Testing performed at [address] [address]ZZQKO SPEC GRAVITY<1.921Mth6.010-1.025[facility] Comment on above:Performed By: #### UMAC #### Testing performed at [address] [address]UKGNY TOTAL PROTEINNegativeNoPresbyterian Medical Center[facility] Comment on above:Performed By: #### UMAC #### Testing performed at [address] [address]Jdvclqmujddr Qn (U)0.2 {Rabia'U}/dLNormal0.2-1.0Virtua VoorheesComment on above:Performed By: #### UMAC #### Testing performed at [address] [address]Gmfz Management Office/Clinic Noteon 59-84-0414Whjv Management Office/Clinic NoteChief Complaint bilateral knee pain [...] L2 laminectomy Comments Surgery: Dr. Burr in [place] Comments Other: HEP - none Recent testing: [...] accord and tracy (more content not included)... NormalJ.W. Ruby Memorial HospitalPain Mgmt Tox Scnon 68-26-4624Qtcz Management Tox ScreenSee ReportNormalJ.W. Ruby Memorial HospitalComment on above:Order Comment: SENT 06/19/2024 14:12:59 EST GSResult Comment: Missing Attachment Chartable Reference Lab Reports Can be viewed in source system Performed By: #### CD:[id number] #### [address] [address]Oqua Management Office/Clinic Noteon 45-30-2686Pyxn Management Office/Clinic NoteChief Complaint low back & [...] L2 laminectomy Comments Surgery: Dr. Burr in [place] Recent testing: No Loss of bladder/bowel: Denies [...] 4ml 0.25% Marcaine c (more content not included)...[facility] Pain Management Office/Clinic Noteon 67-67-8204Wyto Management Office/Clinic NoteChief Complaint bilateral mid back [...] L2 laminectomy Comments Surgery: Dr. Burr in [place] Date Other: HEP Frequency Other: PRN Effective [...] medication interactions/contraindications and/or (more content not included)...Normal [facility] with Diffon 08-91-9490Qyr. Basophil0.06 k/uL Normal0.00-0.20[facility] HospitalComment on above:Performed By: #### MG, URI, CDP, ADRIEN, CP #### [address] [place] [address] Archeology Faculty Member: Yonis Bower MD #### VELMA, VD25 #### [place] [address] Archeology Faculty Member: Marciano March.Imm.Granulocyte<0.29Lvyhnd8.00-0.30[facility] HospitalComment on above:Performed By: #### MG, URI, CDP, ADRIEN, CP #### [address] [place] [address] Archeology Faculty Member: Yonis Bower MD #### EID25 #### [place] [address] Archeology Faculty Member: Marciano March.Neutrophil (Seg)3.97 k/uLNormal1.50-8.[address] [facility] HospitalComment on above:Performed By: #### MG, URI, CDP, ADRIEN, CP #### [address] [place] [address] Archeology Faculty Member: Yonis Bower MD #### EID25 #### [place] [address] Archeology Faculty Member: Gato Baldwin MDBasophils/100 WBC (Bld)1 %Normal0-2MAccess Hospital DaytonComment on above:Performed By: #### MG, URI, CDP, ADRIEN, CP #### [address] [place] [address] Archeology Faculty Member: Yonis Bower MD #### EID25 #### [place] [id number] Archeology Faculty Member: Gato Baldwin MDEosinophils (Bld) [#/Vol]0.12 10*3/uLNormal 0.00-0.44[facility] HospitalComment on above:Performed By: #### MG, URI, CDP, ADRIEN, CP #### [address] [place] [address] Archeology Faculty Member: Yonis Bower MD #### GLYHGB, VD25 #### [place] [address] Archeology Faculty Member: Gato Baldwin MDEosinophils/100 WBC (Bld)1 %Normal1-4[facility] HospitalComment on above:Performed By: #### MG, URI, CDP, ADRIEN, CP #### [address] [place] [address] Archeology Faculty Member: Yonis Bower MD #### VELMA, VD25 #### [place] [address] Archeology Faculty Member: Gato Baldwin MDErythrocyte distribution width (RBC) [Ratio]13.5 %Plddek65.8-14.4[facility] HospitalComment on above:Performed By: #### MG, URI, CDP, ADRIEN, CP #### [address] [place] [address] Archeology Faculty Member: Yonis Bower MD #### GLYHGDulce, VD25 #### [place] [address] Archeology Faculty Member: Gato Baldwin MDHematocrit (Bld) [Volume fraction]41.3 %Normal 36.3-47.1[facility] HospitalComment on above:Performed By: #### MG, URI, CDP, ADRIEN, CP #### [address] [place] [address]783 Archeology Faculty Member: Yonis Bower MD #### GLYHGB, VD25 #### [address] [address] Archeology Faculty Member: Gato Baldwin MDHemoglobin (Bld) [Mass/Vol]12.9 g/dLNormal 11.9-15.1[facility] HospitalComment on above:Performed By: #### MG, URI, CDP, ADRIEN, CP #### [address] [place] [id number] Archeology Faculty Member: Yonis Bower MD #### GLYHGDulce, VD25 #### [address] [address] Archeology Faculty Member: Gato Baldwin MDImmature granulocytes/100 WBC (Bld)0 %Normal[address] [facility] HospitalComment on above:Performed By: #### MG, URI, CDP, ADRIEN, CP #### [address] [place] [address] Archeology Faculty Member: Yonis Bower MD #### VELMA, VD25 #### [address] [address] Archeology Faculty Member: Gato Baldwin MDLymphocytes (Bld) [#/Vol]2.81 10*3/uLNormal 1.10-3.70[facility] HospitalComment on above:Performed By: #### MG, URI, CDP, ADRIEN, CP #### [address] [place], [place] 7424783 Archeology Faculty Member: Yonis Bower MD #### GLYHGB, VD25 #### [address] [id number] Archeology Faculty Member: Gato Baldwin MDLymphocytes/100 WBC (Bld)34 %Tzwjio52-78WpypfMercy Health St. Joseph Warren HospitalComment on above:Performed By: #### MG, URI, CDP, ADRIEN, CP #### [address] [place], [place] 7055383 Archeology Faculty Member: Yonis Bower MD #### GLYHGB, VD25 #### [address] [address] Archeology Faculty Member: SENIA March (RBC) [Entitic mass]31.4 mqXpqdql37.2-33.[address] [facility] HospitalComment on above:Performed By: #### MG, URI, CDP, ADRIEN, CP #### [address] [place], [place] 577[address]83 Archeology Faculty Member: Yonis Bower MD #### SUSANNAHB, VD25 #### [address] [address] Archeology Faculty Member: SENIA MarchC (RBC) [Mass/Vol]31.2 g/lOLvwfgl75.4-34.[address] [facility] HospitalComment on above:Performed By: #### MG, URI, CDP, ADRIEN, CP #### [address] [place], [place] 0828383 Archeology Faculty Member: Yonis Bower MD #### GLYHGB, VD25 #### [address] [address] Archeology Faculty Member: LUI March (RBC) [Entitic vol]100.5 dTMpuram37.6-102.[address] [facility] HospitalComment on above:Performed By: #### MG, URI, CDP, ADRIEN, CP #### [address] [place], [place] 7832383 Archeology Faculty Member: Yonis Bower MD #### GLYHGB, VD25 #### [address] [address] Archeology Faculty Member: Gato Baldwin, MDMonocytes (Bld) [#/Vol]1.36 10*3/uLHigh0.10-1.[address] [facility] HospitalCommymichigan medical center clare on above:Performed By: #### MG, URI, CDP, ADRIEN, CP #### [address] [place], [place] 2376583 Archeology Faculty Member: Yonis Bower MD #### GLYHGB, VD25 #### [address] [address] Archeology Faculty Member: Gato Baldwin MDMonocytes/100 WBC (Bld)16 %High3-12[facility] HospitalComment on above:Performed By: #### MG, URI, CDP, ADRIEN, CP #### [address] [place] [address] Archeology Faculty Member: Yonis Bower MD #### GLYHANSAB, VD25 #### [address] [address] Archeology Faculty Member: Gato Baldwin MDNeutrophil (Seg)48 %Wmqaxy96-06BvirtMercy Health St. Joseph Warren HospitalComment on above:Performed By: #### MG, URI, CDP, ADRIEN, CP #### [address] [place], [place] 2669483 Archeology Faculty Member: Yonis Bower MD #### GLYHGB, VD25 #### [address] [address] Archeology Faculty Member: Gato Baldwin MDNRBC Automated0.0 per [address] [facility] HospitalCommymichigan medical center clare on above:Performed By: #### MG, URI, CDP, ADRIEN, CP #### [address] [place], [place] 6934783 Archeology Faculty Member: Yonis Bower MD #### GLYHGB, VD25 #### [address] [address] Archeology Faculty Member: Porter March mean volume (Bld) [Entitic vol]10.6 fL Normal8.1-13.5[facility] HospitalComment on above:Performed By: #### MG, URI, CDP, ADRIEN, CP #### [address] [place] [address] Archeology Faculty Member: Yonis Bower MD #### GLYHGB, VD25 #### [address] [address] Archeology Faculty Member: Earl March (Bld) [#/Vol]294 10*3/dNDrhpbh981-[address] [facility] HospitalComment on above:Performed By: #### MG, URI, CDP, ADRIEN, CP #### [address] [place] [address] Archeology Faculty Member: Yonis Bower MD #### GLYTREVOR, VD25 #### [place] [address] Archeology Faculty Member: MIRTA March (Bld) [#/Vol]4.11 10*6/uLNormal3.95-5.[address] [facility] HospitalComment on above:Performed By: #### MG, URI, CDP, ADRIEN, CP #### [address] [place] [address] Archeology Faculty Member: Yonis Bower MD #### GLYHGB, VD25 #### [place] [address] Archeology Faculty Member: Gato Baldwin MDBC (Bld) [#/Vol]8.3 10*3/uLNormal3.5-11.3MAccess Hospital DaytonComment on above:Performed By: #### MG, URI, CDP, ADRIEN, CP #### [address] [place], [place] 9818283 Archeology Faculty Member: Yonis Bower MD #### GLYHGB, VD25 #### [address] [address] Archeology Faculty Member: ELLIE Marchomp Metabolic Profon 28-99-9050Nqmqeca [Mass/Vol]3.8 g/dLNormal3.5-5.2MAccess Hospital DaytonComment on above:Performed By: #### MG, URI, CDP, ADRIEN, CP #### [address] [place] [address] Archeology Faculty Member: Yonis Bower MD #### GLYHGDulce, VD25 #### [address] [address] Archeology Faculty Member: Gato Baldwin MDAlbumin/Glob Ratio1.6Xxbiux4.0-2.5[facility] HospitalComment on above:Performed By: #### MG, URI, CDP, ADRIEN, CP #### [address] [place] 6[address] Archeology Faculty Member: Yonis Bower MD #### VELMA, VD25 #### [address] [address] Archeology Faculty Member: Sahara March Phos89 U/CRkrokm88-247MbhsxMercy Health St. Joseph Warren HospitalComment on above:Performed By: #### MG, URI, CDP, ADRIEN, CP #### [address] [place] [address] Archeology Faculty Member: Yonis Bower MD #### GLYHGB, VD25 #### [address] [address] Archeology Faculty Member: Gato Baldwin MDALT [Catalytic activity/Vol]15 U/LNormal5-[address] [facility] HospitalCommymichigan medical center clare on above:Performed By: #### MG, URI, CDP, ADRIEN, CP #### [address] [place] [address] Archeology Faculty Member: Yonis Bower MD #### GLYHGB, VD25 #### [place] [address] Archeology Faculty Member: Cosme March gap [Moles/Vol]9 mmol/LNormal9-17[facility] HospitalComment on above:Performed By: #### MG, URI, CDP, ADRIEN, CP #### [address] [place] [address] Archeology Faculty Member: Yonis Bower MD #### GLYTREVOR, VD25 #### [place] [address] Archeology Faculty Member: GERA March [Catalytic activity/Vol]17 U/LNormal<32[facility] HospitalComment on above:Performed By: #### MG, URI, CDP, ADRIEN, CP #### [address] [place] [address] Archeology Faculty Member: Yonis Bower MD #### GLYTREVOR, VD25 #### [place] [address] Archeology Faculty Member: Gato Baldwin MDBilirubin [Mass/Vol]0.5 mg/dLNormal0.3-1.2MAccess Hospital DaytonComment on above:Performed By: #### MG, URI, CDP, ADRIEN, CP #### [address] [place] [address] Archeology Faculty Member: Yonis Bower MD #### GLYHGB, VD25 #### [place] [id number] Archeology Faculty Member: Gato Madoff, MDBUN/CRE [id number] Health [facility] Comment on above:Performed By: #### MG, URI, CDP, ADRIEN, CP #### [address] [place] [address] Archeology Faculty Member: Yonis Bower MD #### VELMA, VD25 #### [place] [address] Archeology Faculty Member: ELLIE Marchalcium [Mass/Vol]9.4 mg/dLNormal8.6-10.4[facility] Joseph Warren HospitalComment on above:Performed By: #### MG, URI, CDP, ADRIEN, CP #### [address] [place] [address] Archeology Faculty Member: Yonis Bower MD #### [id number] #### [place] [address] Archeology Faculty Member: ELLIE Marchhloride [Moles/Vol]102 mmol/[id number] Health St. Joseph Warren HospitalComment on above:Performed By: #### MG, URI, CDP, ADRIEN, CP #### [address] [place] [id number] ( Archeology Faculty Member: Yonis Bower MD #### EID25 #### [place] [address] Archeology Faculty Member: ELLIE MarchO2 [Moles/Vol]29 mmol/KKpnssp26-35QotubMercy Health St. Joseph Warren HospitalComment on above:Performed By: #### MG, URI, CDP, ADRIEN, CP #### [address] [place] [id number] Archeology Faculty Member: Yonis Bower MD #### VELMA, VD25 #### [address] [id number] Archeology Faculty Member: ELLIE Marchreatinine [Mass/Vol]0.7 mg/dLNormal0.5-0.9[facility] Warren HospitalCommymichigan medical center clare on above:Performed By: #### MG, URI, CDP, ADRIEN, CP #### [address] [place], [place] [id number] Archeology Faculty Member: Yonis Bower MD #### VELMA, VD25 #### [place] [address] [place], [place] [id number] Archeology Faculty Member: Gato Baldwin MDGFR/1.73 sq M.predicted among non-blacks MDRD (S/P/Bld) [Vol rate/Area]mL/min/{1.73_m2}Normal>60[facility]. Joseph Warren HospitalComment on above:Result Comment: These results are [...] #### MG, URI, CDP, ADRIEN, CP #### [address] [place] [id number] Archeology Faculty Member: Yonis Bower MD #### EID25 #### [facility] [place], [place] 8768[address] Archeology Faculty Member: Gato Baldwin MDGlucose [Mass/Vol]79 mg/dLDqcnra99-62UusbuAccess Hospital DaytonComment on above:Performed By: #### MG, URI, CDP, ADRIEN, CP #### [address] [place] [address] Archeology Faculty Member: Yonis Bower MD #### VELMA, VD25 #### [facility] [place] [address] Archeology Faculty Member: SIRIA Marchotassium [Moles/Vol]4.3 mmol/LNormal3.7-5.[address] Joseph Warren HospitalComment on above:Performed By: #### MG, URI, CDP, ADRIEN, CP #### [address] [place] [address] Archeology Faculty Member: Yonis Bower MD #### VELMA, VD25 #### [address] [address] Archeology Faculty Member: Gato Baldwin MDProtein [Mass/Vol]6.8 g/dLNormal6.4-8.3MAccess Hospital DaytonComment on above:Performed By: #### MG, URI, CDP, ADRIEN, CP #### [address] [place] [address] Archeology Faculty Member: Yonis Bower MD #### VELMA, VD25 #### [place] [address] Archeology Faculty Member: SYED Marchodium [Moles/Vol]140 mmol/EUkjvwx588-839XqcbxMercy Health St. Joseph Warren HospitalComment on above:Performed By: #### MG, URI, CDP, ADRIEN, CP #### [address] [place] [id number] Archeology Faculty Member: Yonis Bower MD #### GLYTREVOR, VD25 #### [address] [id number] Archeology Faculty Member: Gato Baldwin MDUrea nitrogen [Mass/Vol]16 mg/dLNormal6-20[facility]. Joseph Warren HospitalComment on above:Performed By: #### MG, URI, CDP, ADRIEN, CP #### [address] [place] [id number] Archeology Faculty Member: Yonis Bower MD #### GLYHGB, VD25 #### [employer] [address] [place] [address] Archeology Faculty Member: Gato Baldwin MDHemoglobin A1Con 80-08-0486Gdilsgn [Mass/Vol]111 mg/dLNormalCleveland Clinic South Pointe Hospital on above:Result Comment: The ADA and AACC recommend providing the estimated average glucose result to permit better patient understanding of their HBA1c result.Performed By: #### MG, URI, CDP, ADRIEN, CP #### [address] [place], [place] 3660183 Archeology Faculty Member: Yonis Bower MD #### GLYHGB, VD25 #### [facility] [address] [place] [address] Archeology Faculty Member: Gato Baldwin MDHbA1c (Bld) [Mass fraction]5.5 %Normal4.0-6.[address] Joseph Warren HospitalComment on above:Performed By: #### MG, URI, CDP, ADRIEN, CP #### [address] [place] [address] Archeology Faculty Member: Yonis Bower MD #### ESDRASHGDulce, VD25 #### [facility] [address] [place] [address] [id number] Archeology Faculty Member: Gato Baldwin MDLipid Profileon 17-38-0898Vvacodzzlbf [Mass/Vol] 168 mg/dLNormal<200[facility] on above:Result Comment: Cholesterol Guidelines: <200 Desirable 200-240 Borderline >240 UndesirablePerformed By: #### MG, URI, CDP, ADRIEN, CP #### [address] [place] [address] Archeology Faculty Member: Yonis Bower MD #### GLYHGB, VD25 #### [address] [id number] Archeology Faculty Member: Gato Madoff, MDCholesterol in HDL [Mass/Vol]53 mg/dLNormal>40 [facility] Hospitalment on above:Result Comment: HDL Guidelines: <40 Undesirable 40-59 Borderline >59 DesirablePerformed By: #### MG, URI, CDP, ADRIEN, CP #### [address] [place] [address] Archeology Faculty Member: Yonis Bower MD #### VELMA VD25 #### [employer] [address] [place] [address] [id number] Archeology Faculty Member: LELIE Marchholesterol in LDL [Mass/Vol]78 mg/dLNormal0-[address] [facility] Warren HospitalCommymichigan medical center clare on above:Result Comment: LDL Guidelines: <100 Desirable 100-129 Near to/above Desirable 130-159 Borderline >159 Undesirable Direct (measured) LDL and calculated LDL are not interchangeable tests.Performed By: #### MG, URI, CDP, ADRIEN, CP #### [address] [place] [id number] Archeology Faculty Member: Yonis Bower MD #### VELMA VD25 #### [facility] HospitalVitasol [address] [place] [address] [id number] Archeology Faculty Member: Jessie Marchststella.total/Cholesterol in HDL [Mass ratio]3.2 {ratio}Normal<5Mer[facility] St. Joseph Warren HospitalComment on above:Performed By: #### MG, URI, CDP, ADRIEN, CP #### [address] [place] [id number] Archeology Faculty Member: Yonis Bower MD #### VELMA, VD25 #### [facility] HospitalVitasol [address] [place] [address] [phone] Archeology Faculty Member: Gato Baldwin MDTriglyceride [Mass/Vol]186 mg/dLHigh<150Mercy Middlesex HospitalComment on above:Result Comment: Triglyceride Guidelines: <150 Desirable 150-199 Borderline 200-499 High >499 Very high Based on AHA Guidelines for fasting triglyceride, March 2012.Performed By: #### MG, URI, CDP, ADRIEN, CP #### [address] [place] [address] Archeology Faculty Member: Yonis Bower MD #### VELMA, VD25 #### [address] [id number] Archeology Faculty Member: Gato Baldwin MDMagnesiumon 77-38-5815Uvgwvoxnm [Mass/Vol]2.0 mg/dLNormal1.6-2.6Mercy Middlesex HospitalComment on above:Performed By: #### MG, URI, CDP, ADRIEN, CP #### [address] [place] [id number] Archeology Faculty Member: Yonis Bower MD #### VELMA, VD25 #### [place] [address] Archeology Faculty Member: Gato Baldwin MDPhosphorus, Inorg.on 28-43-0066Fqjrpfliuo, Inorg.3.1 mg/dLNormal2.6-4.5MerBackus HospitalComment on above:Performed By: #### MG, URI, CDP, ADRIEN, CP #### [address] [place] [address] Archeology Faculty Member: Yonis Bower MD #### VELMA, VD25 #### [facility] [address] [place] [address] Archeology Faculty Member: Gato Baldwin MDST. ANTHONY [facility]PITAL w/reflex to FT4on 79-34-2229Qxzoakh Stim. Horm.1.28 uIU/mLNormal0.30-5.00[facility] Warren HospitalComment on above:Performed By: #### TSHX #### [address] [place] [id number] Archeology Faculty Member: VERONICA Rodriguez w/Reflex Cultureon 71-46-1918Dwotyatpa, SemiQt,UrNegativeNormalNEGMerMercy Health HospitalComment on above:Performed By: #### UAX, UMICAO #### [facility] [address] [place], [place] 9002983 Archeology Faculty Member: Mary Jane Rodriguez, UrineNegativeMercy Memorial Hospital Comment on above:Performed By: #### UAX, UMICAO #### [facility] [address] [place], [place] [id number] Archeology Faculty Member: ELLIE Rodriguezlarity (ClearNoalCLEARMercy Health St. Joseph Warren Hospital Comment on above:Performed By: #### UAX, UMICAO #### [address] [place], [place] [phone] Archeology Faculty Member: ELLIE Rodriguezolor (U)YellowNormalYKettering Health Greene Memorial Comment on above:Performed By: #### UAX, UMICAO #### [address] [place], [place] [phone] Archeology Faculty Member: Yonis Bower MDGlucose Ql (U)NegativeNormalNEGMerMercy Health HospitalComment on above:Performed By: #### UAX, UMICAO #### [facility] [address] [place] [address] Dr. [place], [place] [phone] Archeology Faculty Member: Yonis Bower MDKetones Ql (U)NegativeNormalNEGMerBackus HospitalComment on above:Performed By: #### UAX, UMICAO #### [facility] [address] [place] [address] [place] [address] Archeology Faculty Member: Yonis Bower MDLeukocyte esterase Test strip Ql (U)NegativeNormal NEGMerBackus HospitalComment on above:Performed By: #### UAX, UMICAO #### [facility] [address] [place] [address] [place] [address] Archeology Faculty Member: Yonis Bower MDNitrite,UrNegativeNormalNEGMercy Health St. Joseph Warren Hospital Comment on above:Performed By: #### UAX, UMICAO #### [address] [place] [address] Archeology Faculty Member: SIRIA Rodriguez,Ur6.2Olppgl5.0-9.0[facility]. Joseph Warren HospitalComment on above:Performed By: #### UAX, UMICAO #### [address] [place] [address] Archeology Faculty Member: SIRIA Rodriguezrotein Ql (U)NegativeNormalNEGMercy Health St. Joseph Warren HospitalComment on above:Performed By: #### BRAD RODRIGUEZ #### [facility] [address] [place] [address] Dr. [place], [place] [phone] Archeology Faculty Member: SYED Rodriguezpec. Hooppole,Ur1.791Rwozla6.010-1.020[facility] St. Joseph Warren HospitalComment on above:Performed By: #### BRAD RODRIGUEZ #### [address] [place], [place] 0989083 Archeology Faculty Member: Yonis Bower MDUrobilinogen,UrNormalNormal0.0-1.0[facility] Warren HospitalComment on above:Performed By: #### BRAD RODRIGUEZ #### [facility] [address] [place] [address] Dr. [place], [place] 0601983 Archeology Faculty Member: Yonis Bower MDUric Acidon 56-93-7260Uascv [Mass/Vol]4.4 mg/dL Normal2.4-5.7[facility] Warren HospitalComment on above:Performed By: #### MG, URI, CDP, ADRIEN, CP #### [facility] [address] [place] [address] Dr. [place], [place] [phone] Archeology Faculty Member: Yonis Bower MD #### GLYHGB, VD25 #### [employer] [address] [facility], [place] 9468[address] Archeology Faculty Member: Gato Baldwin MDUrinalysis,Microon 80-65-9472RhfoskozZUEJA AbnormalNONEMeSilver Hill HospitalComment on above:Performed By: #### UAX, UMICAO #### [facility] [address] [place] [address] Dr. [place], [place] 3703783 Archeology Faculty Member: Yonis Bower MDEpithelial cells LM Ql (Urine sed)0 TO 7Tgkzbc1-[address] [facility] Warren HospitalComment on above:Performed By: #### UAX, UMICAO #### [facility] [address] [place] [address] Dr. [place], [place] 4838983 Archeology Faculty Member: Blanca Rodriguez RBC'sNoneNormal0-2MAccess Hospital Dayton Comment on above:Performed By: #### UAX, UMICAO #### [address] [place] [address] Archeology Faculty Member: Blanca Rodriguez WBC's0 TO 6Yyltyn4-6ErcnhMercy Health St. [facility] Hospital Comment on above:Performed By: #### UAX, UMICAO #### [address] [place], [place] 7857583 Archeology Faculty Member: Yonis Bower MDVitamin D 25 OHon 38-55-1102Vplpvmp D 25 OH28.0 ng/mLLow>29.9[facility] Warren HospitalComment on above:Result Comment: Reference Range: Vitamin D status Range Deficiency <20 ng/mL Mild Deficiency 20-30 ng/mL Sufficiency 30-100 ng/mL Toxicity >100 ng/mLPerformed By: #### MG, URI, CDP, ADRIEN, CP #### [facility] [address] [place] [address] [place] [address] Archeology Faculty Member: Yonis Bower MD #### GLYHGB, VD25 #### [employer] [address] [place] [address] Archeology Faculty Member: ELLIE Marchomplete Blood Count with Auto Diffon 03-22-2022 ALVA#: 0.2Hayvmc1.0-0.1German HospitalComment on above:Performed By: #### CBCAD #### [address] [address] Ph. [phone]/100 WBC (Bld)1 %Normal0-1[facility] Comment on above:Performed By: #### CBCAD #### [place] [address] Ph. [phone] (Bld) [#/Vol]0.2 10*3/uLNormal0.0-0.5German HospitalComment on above:Performed By: #### CBCAD #### [address] [address] Ph. [phone]/100 WBC (Bld)3 %Normal0-5[facility] Comment on above:Performed By: #### CBCAD #### [address] [address] Ph. [phone] distribution width (RBC) [Ratio]13.6 %Normal 11.5-14.5German HospitalComment on above:Performed By: #### CBCAD #### [address] [address] Ph. [phone] (Bld) [Volume fraction]38.7 %Sojtjo37.0-47.0German HospitalComment on above:Performed By: #### CBCAD #### [address] [address] Ph. [phone] (Bld) [Mass/Vol]12.9 g/yJYnqkyp65.0-16.0WMiami Valley HospitalComment on above:Performed By: #### CBCAD #### [address] [address] Ph. [phone] (Bld) [#/Vol]1.4 10*3/uLNormal1.0-4.0WMiami Valley HospitalComment on above:Performed By: #### CBCAD #### [address] [address] Ph. [phone]/100 WBC (Bld)24 %Dyyttt24-94GazpuccMiami Valley HospitalComment on above:Performed By: #### CBCAD #### [address] [address] Ph. [phone] (RBC) [Entitic mass]31.9 pvXfrcgd73.0-35.0WMiami Valley HospitalComment on above:Performed By: #### CBCAD #### [address] [address] Ph. [phone] (RBC) [Mass/Vol]33.3 g/hCDdgjyw78.0-36.0WMiami Valley HospitalComment on above:Performed By: #### CBCAD #### [address] [address] Ph. [phone] (RBC) [Entitic vol]96 pXBvrjjr20-961UffhrrjMiami Valley HospitalComment on above:Performed By: #### CBCAD #### [address] [address] Ph. [phone] (Bld) [#/Vol]0.7 10*3/uLNormal0.3-1.0WMiami Valley HospitalComment on above:Performed By: #### CBCAD #### [place] [address] Ph. [phone]/100 WBC (Bld)11 %Normal1-15WMiami Valley Hospital Comment on above:Performed By: #### CBCAD #### [address] [address] Ph. [phone] (Bld) [#/Vol]3.8 10*3/uLNormal1.8-7.7WMiami Valley HospitalComment on above:Performed By: #### CBCAD #### [place] 8[address]51 Ph. [phone]/100 WBC (Bld)62 %Tmaefu76-22ZtultgiMiami Valley HospitalComment on above:Performed By: #### CBCAD #### [place] [address] Ph. [phone] mean volume (Bld) [Entitic vol]11.8 fLNormal9.4-12.3 German HospitalComment on above:Performed By: #### CBCAD #### [address] [address] Ph. [phone] (Bld) [#/Vol]275 10*3/wMLiystf115-972QwuvjkfMiami Valley HospitalComment on above:Performed By: #### CBCAD #### [address] [address] Ph. [phone] (Bld) [#/Vol]4.05 10*6/uLLow4.20-5.40WMiami Valley HospitalComment on above:Performed By: #### CBCAD #### [address] [address] Ph. [phone] (Bld) [#/Vol]6.1 10*3/uLNormal3.7-11.0W[facility]ot Memorial HospitalComment on above:Performed By: #### CBCAD #### [place] [address] Ph. [phone] Metabolic Panelon 16-87-5531Arizeek [Mass/Vol]3.7 g/dLNormal3.5-5.0WMiami Valley HospitalComment on above:Performed By: #### VITD, SMU771, CMP, LIPD #### [place] [address] Ph. [phone] [Catalytic activity/Vol]92 U/SKahxbi30-169GyeryexMiami Valley HospitalComment on above:Performed By: #### VITD, XLI883, CMP, LIPD #### [place] [address] Ph. [phone] [Catalytic activity/Vol]14 U/LNormal0-35WMiami Valley HospitalComment on above:Performed By: #### VITD, SRR061, CMP, LIPD #### [place] [address] Ph. [phone] [Catalytic activity/Vol]22 U/HHlfijp24-16AxntobmMiami Valley HospitalComment on above:Performed By: #### VITD, BHX740, CMP, LIPD #### [place] [address] Ph. [phone] [Mass/Vol]0.6 mg/dLNormal0.2-1.3WMiami Valley HospitalComment on above:Performed By: #### VITD, DBK312, CMP, LIPD #### [place] [address] Ph. [phone] [Mass/Vol]9.5 mg/dLNormal8.4-10.2WMiami Valley HospitalComment on above:Performed By: #### VITD, VXX764, CMP, LIPD #### [place] 8[address]0151 Ph. [phone] [Moles/Vol]106 mmol/YVlvdha09-233KaylfslGerman HospitalComment on above:Performed By: #### VITD, HUD882, CMP, LIPD #### [address] [address] Ph. [phone] [Moles/Vol]26 mmol/MYtpkni54-47KxyasugMiami Valley Hospital Comment on above:Performed By: #### VITD, IOS403, CMP, LIPD #### [place] [address] Ph. [phone] [Mass/Vol]0.64 mg/dLNormal0.52-1.04German HospitalComment on above:Performed By: #### VITD, SJO066, CMP, LIPD #### [place] [address] Ph. [phone]/1.73 sq M.predicted among non-blacks MDRD (S/P/Bld) [Vol rate/Area]100 mL/min/{1.73_m2}Normal>60WMiami Valley HospitalComment on above:Result Comment: Stage 1 Kidney damage (e.g., protein in the urine) with normal GFR >=90\X0D0A\Stage 2 Kidney damage with mild decrease in GFR 60- 89\X0D0A\Stage 3a Moderate decrease in GFR 45-59\X0D0A\Stage 3b Moderate decrease in GFR 30-44\X0D0A\Stage 4 Severe reduction in GFR 15-29\X0D0A\Stage 5 Kidney failure <15Performed By: #### VITD, IOP926, CMP, LIPD #### [place] 8[address]0151 Ph. [phone] [Mass/Vol]104 mg/eKAmeb79-140EbzmhfbMiami Valley Hospital Comment on above:Performed By: #### VITD, DJM731, CMP, LIPD #### [place] [address] Ph. [phone] [Moles/Vol]3.9 mmol/LNormal3.6-5.0German HospitalComment on above:Performed By: #### VITD, DUF141, CMP, LIPD #### [place] [address] Ph. [phone] [Mass/Vol]6.4 g/dLNormal6.3-8.2WMiami Valley Hospital Comment on above:Performed By: #### VITD, WEF739, CMP, LIPD #### [place] [address] Ph. [phone] [Moles/Vol]141 mmol/MNorwmf114-116DzklgcyMiami Valley HospitalComment on above:Performed By: #### VITD, EII299, CMP, LIPD #### [place] [address] Ph. [phone] nitrogen [Mass/Vol]7 mg/dLNormal7-17WMiami Valley HospitalComment on above:Performed By: #### VITD, NMB633, CMP, LIPD #### [place] [address] Ph. [phone] Panelon 22-03-4749Fxexurrgaic [Mass/Vol]142 mg/dLNormal 100-200WMiami Valley HospitalComment on above:Order Comment: Is Patient Fasting?/# of Hours->6Result Comment: <200 mg/dL is recommended cholesterol level.Performed By: #### VITD, TFI435, CMP, LIPD #### [place] [address] Ph. [phone] in HDL [Mass/Vol]46 mg/dLLow>60WMiami Valley HospitalComment on above:Order Comment: Is Patient Fasting?/# of Hours->6 Performed By: #### VITD, FLS210, CMP, LIPD #### [place] [address] Ph. [phone] in LDL [Mass/Vol]68 mg/hAVazjqj98-028StnmmivTriHealth Bethesda North Hospital on above:Order Comment: Is Patient Fasting?/# of Hours->6Performed By: #### VITD, XOI478, CMP, LIPD #### [place] [address] Ph. [phone].total/Cholesterol in HDL [Mass ratio]3 {ratio}Normal 1-5[facility] on above:Order Comment: Is Patient Fasting?/# of Hours->6Performed By: #### VITD, LWM789, CMP, LIPD #### [place] [address] Ph. [phone] [Mass/Vol]140 mg/hXNzttsy56-374GtsybqsTriHealth Bethesda North Hospital on above:Order Comment: Is Patient Fasting?/# of Hours->6 Performed By: #### VITD, JBZ388, CMP, LIPD #### [place] [address] Ph. [phone] Reflex FT4on 83-98-3760SXH8.526 mIU/mLNormal0.470-4.680 [facility] on above:Performed By: #### VITD, JZQ051, CMP, LIPD #### [place] [address] Ph. [phone] D, 25 Hydroxyon 20-70-0550JUGC12 ng/qELfcibd39-143 [facility] on above:Result Comment: EXPECTED VALUES\X0D0A\X0D0A\DEFICIENT: <20 ng/mL\X0D0A\INSUFFICIENT: 20-<30 n g/mL\X0D0A\SUFFICIENT: 30-100 ng/mL\X0D0A\POTENTIAL TOXICITY: >100 ng/mL Performed By: #### VITD, ARX748, CMP, LIPD #### [place] [address] Ph. [phone] Vital Signs Date TimeVital SignValuePerforming CaphhmqixNoolcxbh83-48-9050 09:08-0400Body .7 [facility] Centerion [employer] Work Phone: [phone] [place], [place] 0071610-28-2025 09:08-0400Body mass index (BMI) [Ratio]32.23 kg/x9Atlijikr [employer] Work Phone: [address] [place], [place] 4203610-28-2025 09:08-0400Body weight 96.16 kgSaatrium health university city [employer] Work Phone: [phone] [place], [place] 0071610-18-2025 04:00-0400Diastolic blood nwgbiasp78 mm[Hg]Jigar Reynolds MD Work Phone: [phone]10-18-2025 04:00-0400Heart rate96 /Jose Reynolds MD Work Phone: [address] [place], [place] 4584510-18-2025 04:00-0400Respiratory rate19 /Jose Reynolds MD Work Phone: [phone] [place], [place] 1366610-18-2025 04:00-1971McS1% (BldA) [Mass fraction]100 %Jigar Reynolds MD Work Phone: [phone] [place] [address] [employer]ku Npmdij27-82-6684 04:00-0400Systolic blood zzyjoeoz235 mm[Hg]Jigar Reynolds MD Work Phone: [phone] [place], [place] 1366610-18-2025 00:23-0400Body height 172.7 cmJigar Reynolds MD Work Phone: [phone] [place], [place] 1366610-18-2025 00:20-0400Body shhtyfbrmqv54.01 [degF]Jigar Reynolds MD Work Phone: [facility]10-08-2025 18:00-0400Diastolic blood sonprtfu18 mm[Hg]Joaquín Baez MD Work Phone: [facility]10-08-2025 18:00-0400Heart rate75 /Bethany Baez MD Work Phone: [address] [place], [place] 420[address]10-08-2025 18:00-0400Systolic blood xnqnviam917 mm[Hg]Joaquín Baez MD Work Phone: [address] [place], [place] 4203610-08-2025 17:30-7392RbL6% (BldA) [Mass fraction]96 %Joaquín Baez MD Work Phone: [address] [place], [place] 4203610-08-2025 12:45-0400Respiratory rate19 /Bethany Baez MD Work Phone: [address] [place], [place] 4203610-08-2025 12:12-0400Body bzxvfdylamg07.5 [degF]Joaquín Baez MD Work Phone: [address] [place], [place] 4203610-08-2025 07:02-0400Body height 170.2 cmSneto Baez MD Work Phone: [address] [place], [place] 4203610-08-2025 07:02-0400Body mass index (BMI) [Ratio]34.46 kg/u0PlacrJoaquín Baez MD Work Phone: [address] [place], [place] 4203610-08-2025 07:02-0400Body weight 99.79 kgJoaquín Baez MD Work Phone: [address] [place], [place] 4203610-06-2025 08:31-0400Body height 170.2 cmDennis Furlong DO Work Phone: [facility]10-06-2025 08:31-0400Body mass index (BMI) [Ratio]34.07 kg/o1Zevumu Furlong DO Work Phone: [facility]10-06-2025 08:31-0400Body sfswigzbiqz34.59 [degF]Jimmie Joyalong DO Work Phone: [facility] [employer] Fxjrue65-98-9152 08:31-0400Body sjhkih79.7 kgDennis Mahnazlong DO Work Phone: [facility] [employer] Dddhpo22-25-5984 08:31-0400Diastolic blood wpmqewtb16 mm[Hg]Jimmie Mahnazlong DO Work Phone: [facility] [employer] Xvhxmj46-04-2766 08:31-0400Heart rate 67 /Aquilinois Mahnazlong DO Work Phone: [facility] [employer] Jahubz69-63-0677 08:31-0400 Respiratory rate20 /minDangeliais Mahnazlong DO Work Phone: [facility] [employer] Rgnuis49-94-3307 08:31-3642XjV4% (BldA) [Mass fraction]98 %Jimmie Joyalong DO Work Phone: [facility] [employer] Lnwvfl94-86-6188 08:31-0400Systolic blood dfgjuygq951 mm[Hg]Jimmie Joyalong DO Work Phone: [facility] [employer] Garemi40-66-2966 16:19-0400Body vrpydi514.2 cmJimmie Joyalong DO Work Phone: [facility] [employer] Gxmvgy28-90-0324 16:19-0400Body mass index (BMI) [Ratio]34.45 kg/u7Ngmtrx Furlong DO Work Phone: [facility] [employer] [id number] 16:19-0400Body swylzjvdxhy71.11 [degF]Jimmie Joyalong DO Work Phone: [facility] [employer] [id number] 16:19-0400Body gviphz60.79 kgDenalfredo Joyalong DO Work Phone: [facility] [employer] [id number] 16:19-0400Diastolic blood mm[Hg]Jimmie Joyalong DO Work Phone: [facility] [employer] [id number] 16:19-0400Heart rate 76 /Boris Joyalong DO Work Phone: [facility] [employer] [id number] 16:19-0400 Respiratory rate18 /minDangeliais Mahnazlong DO Work Phone: [facility] [employer] [id number] 16:19-0929PrN4% (BldA) [Mass fraction]97 %Jimmie Montgomeryng DO Work Phone: [place] [facility] Mjxewm84-81-9784 16:19-0400Systolic blood notemvbo798 mm[Hg]Jimmie Montgomeryng DO Work Phone: [facility] Vaqizc89-07-4641 13:59-0400Body myvbqj489.7 Ivanna Baez MD Work Phone: [facility] Khepfo82-83-3664 13:59-0400Body mass index (BMI) [Ratio]32.36 kg/s8TujnzJoaquín Baez MD Work Phone: [facility] Xeppuf62-47-6890 13:59-0400Body weight 96.53 kgJoaquín Baez MD Work Phone: [facility]06-05-2025 16:19-0400Body height 170.2 cmJimmie Montgomeryng DO Work Phone: [facility] Ehamoc00-06-7279 16:19-0400Body mass index (BMI) [Ratio]34.45 kg/w2RaygntJimmie Joyalong DO Work Phone: [facility] Uubgja59-14-8024 16:19-0400Body eywqxoquzxe14.9 [degF]Jimmie Montgomeryng DO Work Phone: [facility] Iljcxo77-78-8633 16:19-0400Body .79 kgJimmie Montgomeryng DO Work Phone: [facility] Qenvqo96-81-9012 16:19-0400Diastolic blood mm[Hg]Jimmie Joyalong DO Work Phone: [facility] [employer] Jytmkh00-83-3983 16:19-0400Heart rate 85 /Aquilinois Furlong DO Work Phone: [facility]06-05-2025 16:19-0400 Respiratory rate18 /minDennis Furlong DO Work Phone: [facility]06-05-2025 16:19-0945RnX2% (BldA) [Mass fraction]97 %Jimmie Joyalong DO Work Phone: [facility] Hcxoju86-71-0137 16:19-0400Systolic blood krimymfs696 mm[Hg]Jimmie Joyalong DO Work Phone: [facility] Zqdgpe34-32-4403 16:32-0500Body .2 cmDenalfredo Joyalong DO Work Phone: [facility] Eqibcj85-08-6101 16:32-0500Body mass index (BMI) [Ratio]35.44 kg/t8Udyhyp Furlong DO Work Phone: [facility] Aiwrpp72-65-4495 16:32-0500Body ycuaonapsgn92.2 [degF]Jimmie Joyalong DO Work Phone: [facility] Ecftbz29-35-9406 16:32-0500Body .65 kgDenalfredo Joyalong DO Work Phone: [facility] Zqzhuo71-18-9852 16:32-0500Diastolic blood lbazuidy97 mm[Hg]Jimmie Joyalong DO Work Phone: [facility] Bgtaun83-74-5700 16:32-0500Heart rate 58 /Boris Joyalong DO Work Phone: [facility] Lozotq57-73-8562 16:32-0500 Respiratory rate18 /minDangeliais Mahnazlong DO Work Phone: [facility]03-03-2025 16:32-7863IpB8% (BldA) [Mass fraction]96 %Jimmie Garcia DO Work Phone: [facility] Lethob33-05-6684 16:32-0500Systolic blood pxjtuaex199 mm[Hg]Jimmie Garcia DO Work Phone: [facility] Secfpm74-78-3255 15:53-0400Body ucfzje510.2 cmJimmie Montgomeryng DO Work Phone: [facility] Fxeqeq25-26-3863 15:53-0400Body mass index (BMI) [Ratio]33.14 kg/j2Plcwrgalfredo Garcia DO Work Phone: [facility] Meyqkb38-94-3154 15:53-0400Body fieoeygntie06.01 [degF]Jimmie Garcia DO Work Phone: [facility] Brskuk80-86-8150 15:53-0400Body .98 kgJimmie Garcia DO Work Phone: [facility] Tuirtf87-57-2484 15:53-0400Diastolic blood mm[Hg]Jimmie Garcia DO Work Phone: [facility] Bpdobb64-39-0194 15:53-0400Heart rate 68 /minDennis Radha DO Work Phone: [facility] Jmgfho91-02-2073 15:53-8324PbH5% (BldA) [Mass fraction]97 %Jimmie Garcia DO Work Phone: [facility] Zwxtbm43-81-6783 15:53-0400Systolic blood nfncswsi072 mm[Hg]Jimmie Garcia DO Work Phone: [facility] Yikpuh60-04-5357 18:41-0400Body zywgnehxrmx43.81 [degF][facility]09-15-2024 18:41-0400Diastolic blood pepdtots65 mm[Hg][facility] VBCNVQ58-16-6381 18:41-0400Heart rate85 /[facility]-15[facility]2024 18:41-0400Respiratory rate18 /minB[facility]09-15-2024 18:41-1626BwG7% (BldA) [Mass fraction]98 %[facility] IIDZVK99-60-5354 18:41-0400Systolic blood llxlaclu367 mm[Hg][facility]04-16-2024 15:12-0400Body auwztf364.1 cmJimmie JoyaLaunchSide.comng DO Work Phone: [facility] Djgsrr46-39-1840 15:12-0400Body mass index (BMI) [Ratio]39.59 kg/p2BswzlxJimmie Joyalong DO Work Phone: [facility] Ztkbph29-12-3129 15:12-0400Body ncnyawdtkck40.81 [degF]Jimmie Joyalong DO Work Phone: [facility] Zjqkjj92-70-5232 15:12-0400Body relnse608.89 kgJimmie Joyalong DO Work Phone: [facility] Heiltp77-00-5538 15:12-0400Diastolic blood fobnjohh12 mm[Hg]Jimmie Joyalong DO Work Phone: [facility] Ujerlj94-33-1019 15:12-0400Heart rate 62 /Boris Joyalong DO Work Phone: [facility] Cjjwjf34-78-5601 15:12-0400 Respiratory rate18 /minDangeliais Mahnazlong DO Work Phone: [facility] Mjowjs96-73-4546 15:12-1220OeJ6% (BldA) [Mass fraction]95 %Jimmie Joyalong DO Work Phone: [facility] Ljzady59-67-6264 15:12-0400Systolic blood zfolensi518 mm[Hg]Jimmie Joyalong DO Work Phone: [facility] Encounters Encounter DateEncounter [facility] ProviderFacilityStart: 05-03-2025 End: 57-58-0348HypthuYisn Cooper CMAProMedifl Physicians Internal Medicine - Family MedicineStart: 04-27-2025 End: 24-23-7159Nnwotn follow up visit related to original Iris Martínez Work Phone: [facility] OrthopedicsComment on above:History of total knee arthroplasty, left (Primary Dx); Acute postoperative pain of kneeStart: 04-27-2025 End: 86-10-8754hqenvtkyymAAGSRXAETwin Cities Community Hospital HospitalComment on above:AnxietyStart: 04-27-2025 End: 87-48-6487Fpknzzlwky hospital visit by Jordan Martínez Work Phone: [facility] RadiologyStart: 04-26-2025 End: 19-08-7776Dgmgmg OnlyJimmie Garcia DO Work Phone: [facility] Internal [facility] - Family [facility] CenterComment on above:Chronic bilateral low back pain without sciatica; AnxietyStart: 04-17-2025 End: 28-11-5169Vzppabpmz department patient visitJigar Reynolds MD Work Phone: [facility] Emergency DepartmentStart: 04-12-2025 End: 06-72-5646Ynucey OnlyJimmie Montgomeryng DO Work Phone: [facility] - [facility] MedicineStart: 04-07-2025 End: 00-38-5058dlsugptuwtUXFTUN FURLONGSt. Francis Medical Center HospitalStart: 04-07-2025 End: 66-79-5295Tynoiakhrf hospital visit by Amairani Baez MD Work Phone: [facility] PeriopComment on above:Osteoarthritis of left knee, unspecified osteoarthritis typeStart: 04-05-2025 End: 29-87-3933Xavrnx outpatient visit 15 minutesJimmie Garcia DO Work Phone: [facility] Internal Medicine - Family MedicineComment on above:Pre-op evaluation (Primary Dx); Primary osteoarthritis of left knee; Mild intermittent asthma, unspecified whether complicated; Class 1 obesity due to excess calories with serious comorbidity and body mass index (BMI) of 34.0 to 34.9 in adultStart: 04-05-2025 End: 19-23-1212Apsmldlrsttxv examination doneJimmie Garcia DO Work Phone: [facility] Work Phone: Start: 03-31-2025 End: 49-01-0785yniitxjhxwXzou ProviderFacility:[facility] Hospitaltart: 03-25-2025 End: 92-83-6627Pdiish OnlyJimmie Garcia DO Work Phone: [facility] Internal Medicine [facility] MedicineStart: 03-22-2025 End: 06-05-2849Ejyxdr OnlyJimmie Garcia DO Work Phone: [facility] Internal Medicine [facility] MedicineStart: 03-19-2025 End: 46-54-8874Jhsdtu OnlyJimmie Garcia DO Work Phone: [facility] Internal Medicine [facility] MedicineStart: 03-15-2025 End: 53-21-6893Suhvpfk encounter statusJimmie Garcia DO Work Phone: [facility] Work Phone: Start: 03-15-2025 End: 86-42-2748Yanffckk preventive med est patient 40-64yrsDennis Rochelle Garcia DO Work Phone: [facility] Internal Medicine [facility] HospitalComment on above:Well adult exam (Primary Dx); [...] low back pain without sciaticaStart: 03-08-2025 End: 04-35-6836ffegnqdfyfUoew ProviderFacility:[facility] HospitalStart: 03-08-2025 End: 75-13-9271maummsdtjnMhjd ProviderFacility:[facility] HospitalStart: 66-07-0839mdiobkkoayVXFYJIProvidence [facility]ia Hospital HospitalStart: 02-25-2025 Encounter for other [facility]ced[facility] Start: 02-09-2025 End: 57-81-0081OxmvzhVbtphs Rochelle Joyarominang DO Work Phone: [facility]: 02-03-2025 End: 72-06-5456Jogfkb outpatient new 60 Loi Baez MD Work Phone: [facility] OrthopedicsComment on above:Left knee pain, unspecified chronicity (Primary Dx)Start: 38-98-4765uarqgwcbgdURLBKQOchsner Medical Centertart: 02-03-2025 End: 19-74-9456Dfgyhkisyg hospital visit by Amairani Baez MD Work Phone: [facility] RadiologyStart: 12-25-2024 End: 94-06-9828Pvncmp OnlyJimmie Rochelle Joyarominang DO Work Phone: [facility] Internal Medicine - Family MedicineComment on above:Primary osteoarthritis of left knee (Primary Dx)Start: 12-15-2024 End: 44-79-4107Jiodyj OnlyJimmie Rochelle Joyarominang DO Work Phone: [facility] Internal Medicine - Family MedicineComment on above:Chronic bilateral low back pain without sciatica (Primary Dx)Start: 12-03-2024 End: 54-50-4714Awggko outpatient visit 25 minutesJimmie Rochelle Joyarominang DO Work Phone: [facility] Internal Medicine - Family MedicineComment on above:Class 1 obesity due to excess calories with serious comorbidity and body mass index (BMI) of 34.0 to 34.9 in adult (Primary Dx); Tremor; Recurrent major depressive disorder, remission status unspecified; Chronic bilateral low back pain without sciatica; Primary osteoarthritis of left knee; AnxietyStart: 11-19-2024 End: 65-23-7066dbtuonkzydAufwipValerie Hampton MDFacility:[facility] Hospitaltart: 11-14-2024 End: 27-86-7196DuyyacLhawwr G Furlong DO Work Phone: [facility] Internal Medicine - [facility] MedicineStart: 11-11-2024 End: 91-51-0282Excwex OnlyDennis G Furlong DO Work Phone: [facility] - [facility] MedicineStart: 11-05-2024 End: 16-30-7038LwgqsxHpwiqh G Furlong DO Work Phone: [facility] Medicine - [facility] MedicineStart: 10-13-2024 End: 57-37-3656Mtwmgz OnlyDennis G Furlong DO Work Phone: [facility] CenterComment on above:Class 1 obesity due to excess calories with serious comorbidity and body mass index (BMI) of 33.0 to 33.9 in adult (Primary Dx) Start: 28-42-1500nrmmzwllqnTgvpsw Ann Morris MARKET MANAGER-CNPFacility:[facility] [place]Start: 09-24-2024 End: 42-90-0788uoigonejzyUpvwsr Ann Morris APRN-CNPFacility:[facility] [place]Start: 09-01-2024 End: 97-49-0539Hxtwmm OnlyDennis G Furlong DO Work Phone: [facility] Internal [facility] MedicineStart: 08-31-2024 End: 82-01-9593Kberrw outpatient visit 15 minutesDennis G Furlong DO Work Phone: [facility] Internal [facility] - [facility] CenterComment on above:Class 1 obesity due to excess calories with serious comorbidity and body mass index (BMI) of 33.0 to 33.9 in adult (Primary Dx) Start: 08-16-2024 End: 76-30-3810YkabhvOtqzkk G Furlong DO Work Phone: [facility] Internal Medicine - Family MedicineStart: 06-18-2024 End: 78-35-2580qqspjefeyvHqvheq W Secor MDFacility:[facility] Start: 06-18-2024 End: 37-97-1099eullidkynnZtqfof W Secor MDFacility:[facility] [place] Start: 05-12-2024 End: 85-50-4685KrvjxsNnpma Uvaldo MANDYProMedica Physicians Internal Medicine - Family MedicineStart: 04-07-2024 End: 64-44-4461Qzbspj Dixie Garcia DO Work Phone: [facility] Internal Medicine - Family MedicineStart: 03-25-2024 End: 09-96-5456Xmochr Dixie Garcia DO Work Phone: [facility] Internal Medicine - Family MedicineStart: 03-24-2024 End: 30-42-1487Kmecqq Dixie Garcia DO Work Phone: [facility] Internal Medicine - Family MedicineStart: 03-23-2024 End: 37-10-4767Vrnqroiun encounterVanessa Garcia [facility]ITALPro[facility] Internal Medicine - Family MedicineStart: 03-19-2024 End: 28-12-3138Csecgq outpatient visit 25 Bruno Garcia DO Work Phone: [facility] Internal Medicine - Family MedicineComment on above:Nausea and vomiting, unspecified vomiting type (Primary Dx); Hypokalemia; Other fatigue; Class 1 obesity due to excess calories with serious comorbidity and body mass index (BMI) of 33.0 to 33.9 in adultStart: 03-15-2024 End: 12-02-1509Mnlmcqdgr department patient visitRESTON HOSPITAL CENTERStart: 02-24-2024 End: 95-84-8770Sqgigl Dixie Garcia DO Work Phone: [facility] Internal Medicine - Family MedicineStart: 02-10-2024 End: 52-23-1441Qthhkg Dixie Montgomeryng DO Work Phone: [facility] Internal Medicine - Family MedicineStart: 01-30-2024 End: 73-50-6423qslrnhzmfySfelhh W Secor MDFacility:[facility] [place] Start: 01-14-2024 End: 25-06-0833Kkzewj OnlyDennis G Furlong DO Work Phone: [facility] Internal Medicine - Family MedicineComment on above:Class 2 severe obesity due to excess calories with serious comorbidity and body mass index (BMI) of39.0 to 39.9 in adult ([facility]) (Primary Dx)Start: 12-16-2023 End: 27-23-8923Vhbsyr OnlyDennis G Furlong DO Work Phone: [facility] Internal Medicine - [facility] MedicineStart: 11-12-2023 End: 12-53-8026Vjioah OnlyDennis G Furlong DO Work Phone: [facility] Internal Medicine - Family MedicineComment on above:Class 2 severe obesity due to excess calories with serious comorbidity and body mass index (BMI) of39.0 to 39.9 in adult ([facility]) (Primary Dx)Start: 11-07-2023 End: 44-73-7623UmdbozBhnkm Uvaldo CMAProAndalusia Health Physicians Internal Medicine - Family MedicineComment on above:Morbid obesity ([facility]) (Primary Dx)Start: 10-30-2023 End: 59-98-3946Cwpkao OnlyDennis G Furlong DO Work Phone: [facility] Internal Medicine - Family MedicineComment on above:Primary osteoarthritis of knee, unspecified laterality (Primary Dx)Start: 10-15-2023 End: 68-04-3954Wtxxdm outpatient new 45 minutesDennis G Furlong DO Work Phone: [facility] Internal Medicine - Family MedicineComment on above:Anxiety (Primary Dx); Depression, unspecified depression type; MARYLU (obstructive sleep apnea); Gastroesophageal reflux disease, unspecified whether esophagitis present; Class 2 severe obesity due to excess calories with serious comorbidity and body mass index (BMI) of39.0 to 39.9 in adult (CMS-HCC); Screen for colon cancer; Encounter for screening mammogram for malignant neoplasm of breast; Ex-cigarette smokerStart: 08-21-2023 End: 99-87-1487dxushthyuaXDXIE [facility] HospitalStart: 08-21-2023 Encounter for general adult medical examination without abnormal findingsROBIN [facility] HospitalStart: 83-32-8162czsbadriesVYHTKPenn State [facility] Procedures DateProcedureProcedure DetailPerforming ClinicianStart: 68-33-6877Cy abdomen & pelvis w/contrast materialJigar Reynolds MD Work Phone: Start: 62-31-6918Vxhqxuya blood count with white cell differential, automatedJigar Reynolds MD Work Phone: Start: 34-76-6091Ovnshqpdrfdhg metabolic panelJigar Reynolds MD Work Phone: Start: 73-13-5271Qnrgu drug screeningChad Violeta CHAUNCEY-JD EDWARDS CONSULTANT Work Phone: Start: 34-33-8714Offhk depression screening assessment Jimmie Furlong DO Work Phone: Start: 21-18-4415Xvcpz depression screening assessment Jimmie Furlong DO Work Phone: Start: 59-68-1519Hnwsd depression screening assessment Jimmie Furlong DO Work Phone: Start: 28-06-0968Ozprk depression screening assessment Jimmie Furlong DO Work Phone: Start: 18-94-2089Ymvrw depression screening assessment Jimmie Furlong DO Work Phone: Start: 28-01-8271Wfxms depression screening assessment Jimmie Furlong DO Work Phone: Plan of Treatment DateCare ActivityDetailAuthorStart: 72-41-8178ZKdZ,Tdap and Td Vaccines (3 - Td or Tdap)DTaP,Tdap and Td Vaccines (3 - Td or Tdap)[facility] SystemStart: 03-90-7233Ajrjflu vaccinationTETANUSAviBuchanan General Hospital SystemStart: 18-10-1090Vfqsn panelLipidsB[facility] HOSPITALStart: 81-36-7191Nogon BMI Follow Up Plan Adult BMI Follow Up PlanCape Fear Valley Medical Centertart: 27-65-0596Cdfhm BMI ScreeningAdult BMI ScreeningTrumbull Regional Medical Center SystemStart: 38-57-4995Nhsiongfav ScreeningDepression ScreeningTrumbull Regional Medical Center SystemStart: 41-30-8712Nabdyww ScreeningTobacco ScreeningTrumbull Regional Medical Center SystemStart: 39-84-9712Akvwu BMI ScreeningAdult BMI ScreeningTrumbull Regional Medical Center SystemStart: 78-81-8361Dlxbplbbcz ScreeningDepression ScreeningTrumbull Regional Medical Center SystemStart: 51-73-6042Akwdzsz ScreeningTobacco ScreeningTrumbull Regional Medical Center SystemStart: 22-02-3630Hthdf BMI ScreeningAdult BMI ScreeningTrumbull Regional Medical Center SystemStart: 01-29-7267Dhkcblgjfk ScreeningDepression ScreeningTrumbull Regional Medical Center SystemStart: 89-11-1613Midboln ScreeningTobacco ScreeningTrumbull Regional Medical Center SystemStart: 52-74-1941Wojox BMI ScreeningAdult BMI ScreeningTrumbull Regional Medical Center SystemStart: 02-21-3761Ukbgxyhicn ScreeningDepression ScreeningCape Fear Valley Medical Centertart: 72-01-1009Pkimunl ScreeningTobacco ScreeningCape Fear Valley Medical Centertart: 08-19-2025 End: 37-27-5639Rkfphah encounter qspxulusg42/19/2026 2:00 PM EST Office Visit [facility] [address] [place] [address] Cayden Mcdaniel APRN-EDI [address] [place] [address] [facility] OrthopedicsStart: 11-57-9204Thxlktnilgosto of varicella zoster vaccineZoster (Shingles) Vaccine (2 of 2)[facility] SystemStart: 07-29-7794Oxxalb vaccine hzv live for subcutaneous useZOSTER (SHINGLES) VACCINE (2 of 2)[facility]: 04-27-2025 End: 41-73-1410Oysthkz encounter opxdbdmui80/28/2025 9:20 AM EDT Office Visit [facility] [address] [place] [address] Елена Martínez [address] [place] [address] [facility] OrthopedicsStart: 04-05-2025 End: 97-55-5296Nrqmwfg encounter putunavby01/06/2025 8:30 AM EDT Office Visit [facility] - Family Medicine [address] [place] [address] Jimmie Garcia DO [address], [place] [address] [facility] - [facility] MedicineStart: 18-31-9351Urzvjfomp vaccinationInfluenza VaccineTrumbull Regional Medical Center SystemComment on above:Postponed from 03/01/2025 (Vaccine Not Available)Start: 03-22-2025 End: 72-77-7509Dwoqqbvwp to same day surgery hplogo4203/22/2025 12:55 PM EDT - 03/22/2025 2:[address] [facility] [address] [place] [address] Joaquín Baez MD [address] [place] [address] ARTHROPLASTY KNEE TOTALSt. Francis Medical Center PeriopComment on above:ARTHROPLASTY KNEE TOTALStart: 03-22-2025 End: 67-49-2429Vcwukf kne condyle&platu medial&lat compartmentsARTHROPLASTY KNEE TOTAL Osteoarthritis of left knee, unspecified osteoarthritis type 03/22/2025 12:55 PM EDTAVI ONT ORStart: 03-22-2025 End: 82-27-2342Dujw-asst surgical navigation image-lessASSISTANCE SURGICAL NAVIGATION MUSCULOSKELETAL IMAGELESS ADD-ON PX Osteoarthritis of left knee, unsp ecified osteoarthritis type 03/22/2025 12:55 PM EDTAVI ONT ORStart: 03-22-2025 Subsequent hospital visit by beklcmsua08/22/2025 12:55 PM EDT Hospital Encounter [facility] [address] [place] [id number] Joaquín Baez MD [address] [place] [address] Osteoarthritis of left knee, unspecified osteoarthritis type [facility] PeriopComment on above:Osteoarthritis of left knee, unspecified osteoarthritis typeStart: 12-55-9903Ifhup BMI ScreeningAdult BMI Screening [facility] SystemStart: 88-34-8928Byqadetlrt ScreeningDepression Screening [facility] Centertart: 34-30-2615Olokqsq ScreeningTobacco Screening [facility] Centertart: 03-15-2025 End: 35-18-6728Cutvhbp encounter akmfkpbio74/15/2025 4:00 PM EDT Office Visit [facility] Internal Medicine - Family Medicine [address] [place] [address] Jimmie Garcia, DO [address] [facility], [place] [address] [facility] - Family MedicineStart: 03-15-2025 End: 11-66-5961FTM Breast - bilateral screeningMammography screening bilateral with CAD Imaging Routine Encounter for screening mammogram for malignant neoplasm of breast Expected: 03/15/2025, Expires: 03/15/2026[facility] Work Phone: Comment on above:Expected: 03/15/2025, Expires: 03/15/2026Start: 71-55-4485YBREE-19 VACCINE ( season)COVID-19 VACCINE ( season)[facility] SystemStart: 79-41-8189Pbzitiuby vaccination [facility] Centertart: 02-25-2025 End: 14-03-0729Bjisahiki to qydzsrcdhonxi95/28/2025 9:00 AM EDT Pre-Operative Nurse Assessment [facility] Pre Admission [address] [place] [address] [address] [place] Pre AdmissionStart: 78-51-5664ayqzuodjto AmbulatoryFacility:[facility] - [place]Start: 12-03-2024 End: 97-43-1984Seoxrid encounter fvoralscb99/05/2025 4:15 PM EDT Office Visit [facility] - Family [facility] [address] [place] [address] Jimmie Garcia, DO [address], [place] [address] [facility] Internal Medicine [facility] MedicineStart: 25-17-9244Gibje BMI ScreeningAdult BMI ScreeningProMercy Health [facility] SystemStart: 38-24-1062Fjvqilurxa ScreeningDepression ScreeningTrumbull Regional Medical Center SystemStart: 96-98-8289Pauqcib ScreeningTobacco ScreeningProMercy Health [facility] Hospital SystemStart: 08-31-2024 End: 18-99-4994Frjelrm encounter pauycwvsi37/03/2025 4:30 PM EST Office Visit [facility] - Family [facility] [address] [place] [address] Jimmie Garcia, DO [address], [place] [address] [facility] Internal Medicine [facility] MedicineStart: 48-57-4389Tdpqomwifb MonitoringDepression MonitoringRESTON HOSPITAL CENTERStart: 04-15-2024 End: 19-18-7562Qjsepya encounter ulkjkxgtb53/16/2024 9:30 AM EDT Office Visit [facility] - Family [facility] [address] [place] [address] Jimmie Garcia, DO [address], [place] [address] [facility] Internal Medicine - Family MedicineStart: 91-59-5988HVLOQ-19 Vaccine ( season)COVID-19 Vaccine ()[facility]ENTERStart: 55-22-7141SBAMA-19 Vaccine ()COVID-19 Vaccine ()[facility] SystemStart: 76-27-7537Ymkcsrddu vaccination Influenza VaccineTrumbull Regional Medical Center SystemStart: 29-28-6977Afjrhxjnh vaccination Flu vaccine (#1)[facility]ENTERStart: 12-25-2023 End: 12-04-9475Ewtasde encounter procedureJ.[facility]. [facility] - [facility] ImagingStart: 10-15-2023 End: 33-49-4790WP Chest for screening WO contrastCT low dose lung screening (Annual) Imaging Routine Ex-cigarette smoker Expected: 10/15/2023, Expires: 10/14/2024[facility] SystemComment on above:Expected: 10/15/2023, Expires: 10/14/2024Start: 10-15-2023 End: 54-74-9117EMV Breast - bilateral screeningMammography screening bilateral with CAD Imaging Routine Encounter for screening mammogram for malignant neoplasm of breast Expected: 10/15/2023, Expires: 10/14/2024[facility] HospitalComment on above:Expected: 10/15/2023, Expires: 10/14/2024Start: 11-49-0880IFEWI-19 Vaccine ()COVID-19 Vaccine ()[facility] SystemStart: 50-42-1399Exomuimlg for malignant neoplasm of breastBreast cancer screenBON NORWALK MEMORIAL HOSPITALStart: 01-03-2016 Administration of varicella zoster vaccineZoster (Shingles) Vaccine (1 of 2) [facility] SystemStart: 51-74-0901Zqssrujxzxkv vaccinationPremier Health SystemStart: 68-05-0432Rkykhnxn vaccine (1 of 2)Shingles vaccine (1 of 2)[facility]: 33-01-7284Ucdqev vaccine hzv live for subcutaneous useZOSTER (SHINGLES) VACCINE (1 of 2)[facility]: 11-20-2015 DTaP,Tdap and Td Vaccines (2 - Td or Tdap)DTaP,Tdap and Td Vaccines (2 - Td or Tdap)[facility]: 14-33-6011VBjY/Tdap/Td vaccine (2 - Td or Tdap)DTaP/Tdap/Td vaccine (2 - Td or Tdap)[facility]ENTERStart: 19-74-6897Mrnijld vaccinationTETANUSAMercy Health Tiffin Hospitaltart: 04-09-2015 Screening for malignant neoplasm of breastMAMMOGRAM SCREENING DISCUSSIONDayton VA Medical Centertart: 88-17-9422Yimukohpy for malignant neoplasm of colonBON Wilson Healthart: 03-40-2058Uffhf panelLIPID SCREENINGDayton VA Medical Centertart: 41-50-2762Tzzlvhidrlqv 0-64 years Vaccine (2 of 2 - PPSV23 or PCV20)Pneumococcal 0-64 years Vaccine (2 of 2 - PPSV23 or PCV20)[facility]ENTERStart: 00-99-7844Hkeujymrd for malignant neoplasm of cervixBON Wilson Healthart: 66-69-3493Wdiqyqnup for malignant neoplasm of cervix [facility] [place]: 90-90-7910Rdxbuqfjl B vaccinationHEP B VACCINE (1 of 3 - 19+ 3-dose series)[facility] Cent[facility]art: 84-34-6152Dzpdllans B vaccine (1 of 3 - 19+ 3-dose series)Hepatitis B vaccine (1 of 3 - 19+ 3-dose series)[facility]: 83-89-2598Rucen BMI Follow Up PlanAdult BMI Follow Up PlanCape Fear Valley Medical Centertart: 35-49-3619Ywcxopbai C screening Hepatitis C screenBON NORWALK MEMORIAL HOSPITALStart: 39-86-4681WBO screeningRiverside Doctors' Hospital Williamsburgart: 13-75-6572Ykvhvhtyg C screeningHEPATITIS C VIRUS SCREENINGKindred Healthcare End: 69-23-1448Bhsoj metabolic 2000 panel - Serum or PlasmaBasic Metabolic Panel Lab Routine Hypokalemia 1 Occurrences starting 03/19/2024 until 03/19/2025 [employer] Work Phone: Comment on above:1 Occurrences starting 03/19/2024 until 03/19/2025 End: 13-06-8321VHK panel - Blood by Automated countCBC without diff Lab Routine Tremor 1 Occurrences starting 12/03/2024 until 12/03/2025[facility] HospitalClear Creek Networks System Comment on above:1 Occurrences starting 12/03/2024 until 12/03/2025BC panel - Blood by Automated countCBC without diff Lab Routine Tremor 12/03/2024 5:19 PM PlertsCologuard Non-ProMedicaCologuard Non-ProMedica Lab Routine Screen for colon cancer Ordered: [employer] Work Phone: Comment on above:Ordered: 4Cologuard Non-ProMedicaCologuard Non-ProMedica Lab Routine Screen for colon cancer Ordered: 03/15/2025[facility] Memorial HospitalGreengro TechnologiesComment on above:Ordered: 03/15/2025 End: 23-67-1896Ymaujslxkjdtj metabolic 2000 panel - Serum or PlasmaComprehensive metabolic panel Lab Routine Tremor 1 Occurrences starting 12/03/2024 until 12/03/2025[employer] Work Phone: Comment on above:1 Occurrences starting 12/03/2024 until 12/03/2025omprehensive metabolic 2000 panel - Serum or Plasma Comprehensive metabolic panel Lab Routine Tremor 12/03/2024 5:19 PM Plerts End: 71-02-0891Futaduenz [Mass/volume] in Serum or PlasmaMagnesium Lab Routine Hypokalemia Other fatigue 1 Occurrences starting 03/19/2024 until 03/19/2025 [facility] HeartComment on above:1 Occurrences starting 03/19/2024 until 03/19/2025Radiography for bone length studiesXR BONE LENGTH STUDY Imaging Routine Left knee pain, unspecified chronicity 02/03/2025 1:53 PM [employer] Work Phone: Radiography for bone length studiesXR BONE LENGTH STUDY Imaging Routine History of total knee arthroplasty, left 04/27/2025 9:04 AM VuzeURGICAL PATHOLOGY REQUESTSURGICAL PATHOLOGY REQUEST Surg Path Routine Osteoarthritis of left knee, unspecified osteoarthritis type Release Upon Ordering for 1 Occurrences starting 04/07/2025[facility] Adku [facility] Comment on above:Release Upon Ordering for 1 Occurrences starting 04/07/2025 End: 69-18-8942YZA with ReflexTSH with Reflex Lab Routine Tremor 1 Occurrences starting 12/03/2024 until 12/03/2025[facility] HospitalComment on above:1 Occurrences starting 12/03/2024 until 12/03/2025TS with ReflexTSH with Reflex Lab Routine Tremor 12/03/2024 5:19 PM [facility] End: 26-94-4134PO Knee - left 2 ViewsHasbro [facility] Adku [facility] HospitalComment on above:One Time for 1 Occurrences starting 04/07/2025 until 04/07/2025XR Knee - left 3 ViewsXR KNEE LEFT 3 VIEWS Imaging Routine History of total knee arthroplasty, left 04/27/2025 9:04 AM TopTenREVIEWS [facility] HospitalXR Knee - left 4 ViewsXR KNEE LEFT 4+ VIEWS Imaging Routine Left knee pain, unspecified chronicity 02/03/2025 1:53 PM [facility] Adku [facility] Immunizations Immunization DateImmunizationNotesCare VkkesldxNncuieyq14-55-8727kyvkrfe toxoid, reduced diphtheria toxoid, and acellular pertussis vaccine, adsorbedDennis Furlong DO Work Phone: [facility]09-15-2025zoster vaccine recombinantDennis Furlong DO Work Phone: [facility] HospitalFyolva31-02-5697Fagtlyepiwoj, In Clinic,; Translations: [Drug or medicament (substance)]Jimmie Furlong DO Work Phone: [facility] Adku Zfnxxr90-68-0604ilnjxa vaccine, unspecified formulationDennis Furlong DO Work Phone: [facility] RehabilitationAccordent Technologies [facility] HospitalAwmlqi64-84-0471CMWLM-10, MODERNA BLUE border, Primary or Immunocompromised, (age 12y+), IM, 100 mcg/0.5mLBON NORWALK MEMORIAL HOSPITALCWZOKT98-76-5625WDMHG-30, MODERNA BLUE border, Primary or Immunocompromised, (age 12y+), IM, 100 mcg/0.5mLREST[facility] 87-89-9570izwdszq toxoid, reduced diphtheria toxoid, and acellular pertussis vaccine, adsorbedDennis Furlong DO Work Phone: [facility] HospitalTntkvi72-21-9286jqweeodyzzpa conjugate vaccine, 13 valentDennis Furlong DO Work Phone: [facility] Payers DatePayer CategoryPayerPolicy [id number] Care (unspecified)MMO NETWORK ACCESS Member Subscriber Plan / Payer (Effective 2024-Present) Name: SAKSHI HIGHTOWER Relation to Subscriber: Self Name: Sakshi Hightower Payer ID: Not on file Type: Not on file Address: [address] [id number]. [id number] Managed Care - PPO [id number] [id number] [id number] 2.840.1.841774.3.57[id number] 2.840.1.952365.3.57[id number] 2.840.1.547162.3.57[id number] 2.16.840.1.019166.3.57[id number] 2.16.840.1.469582.3.57[id number] 2.16.840.1.978330.3.57[id number] 2.16.840.1.178088.3.57[id number] 2.16.840.1.283176.3.57[id number] 2.16.840.1.255358.3.57[id number] 2..840.1.866703.3.57[id number] 2.16.840.1.589677.3.57[id number] 2..840.1.051551.3.57[id number] 2..840.1.552122.3.57[id number] 2.840.1.843044.3.57[id number] 2.840.1.945802.3.57[id number] 2.840.1.085485.3.579.2.983 Social History DateTypeDetailFacilityStart: 08-01-2023 End: 62-32-2191Zbqxtqg smoking status NHISEx-smokerRESTON HOSPITAL CENTER Start: 07-01-2014 End: 11-87-7437Vyyfnob of tobacco useCurrent smokerCape Fear Valley Medical Centertart: 07-01-2014 End: 21-49-2865Eqtpseb of tobacco useCigarette SmokerHarrison Community Hospital Start: 08-01-2023 End: 52-35-4025Hscsjbm use and exposureSmokeless tobacco non-userCape Fear Valley Medical Centertart: 03-15-2024 End: 14-48-2163Yuuwrmftf beverage intakeCurrent drinker of alcohol (finding) [facility] Centertart: 08-01-2023 End: 90-00-8683Wwarila of Social functionCape Fear Valley Medical Centertart: 08-01-2023 End: 30-67-2998Nvyqtft use panelHarrison Community HospitalPatient Health Questionnaire 9 item (PHQ-9) total score [Reported][address] [place] [address] Start: 45-00-4385Jxw assigned at birthNot on fileCape Fear Valley Medical Centertart: 96-41-3407Cogzqhl CommentsocialCape Fear Valley Medical Centertart: 08-03-2012 End: 94-20-9577TaeWornhz (finding)[facility] Centertart: 02-03-2025 Tobacco smoking status NHISNever smoked tobaccoDayton VA Medical Centertart: 70-53-2673Tlrizpd CommentQuit 10 years agoDayton VA Medical Centertart: 02-11-2025 Alcohol CommentoccassionalDayton VA Medical Centertart: 31-72-1658Kcmepa identity Identifies as female gender (finding)[facility] Centertart: 35-38-1876Guyomz orientationHeterosexual (finding)[facility]red HealthcareHow often to you have a drink containing alcohol?[facility] Medical Equipment Procedure CodeEquipment CodeEquipment Original TextEquipment IdentifierDates Attune Patella Medialized Dome 32mm Cemented [id number]: 04-07-2025 Attune Femoral Cruciate Retaining Size 6 Left [id number]: 36-88-3317Hpjawy Knee System Tibial Base Fixed Bearing Size 5 Cemented [id number]: 66-44-9235Znceow Knee System Tibial Insert Fixed Bearing Cruciate Retaining Size 6 7mm [id number]: 86-59-1822Cscomab R 1x40 [id number]: 33-57-2585Ngopdvs R [id number]: 04-07-2025 Functional Status KiwfTudfxpsaaiJswzwyOuponspz76-85-0444Lnnguukzeqg anxiety disorder 7 item (DARIA-7)[facility] Clinical Notes 10-15-2023 to 04-27-2025 Note Date & QpyhEwblYuutmxdl70-81-7191 History of Present illness Narrative* Miriam Alton - 04/27/2025 9:20 AM EDT Ortho Nurse - Established Patient Intake Room#: 4 Date: 04/27/2025 9:09 AM Patient: Sakshi Hightower MR#: [id number] : 1965 Age: 60 y.o. 3wk L TKA Pt stated she is doing good,but just painful that is a 01/07. Pt stated she needs a refillon her pain meds took the last one last night. Pt was wearing her jamie hose and using a walker at the time. Referring Physician: Sameer Wilburn PA-C Insurance: Payor: [employer] [place] / Plan: [employer] Access / Product Type: *No Product [...] tablet 0 Cholecalciferol (Vitamin D3) 1.25 MG (47202 UT) capsule Take 1 capsule by mouth [...] by Nasal route once for 1 dose. [place] into the nose as directed. Call 911. [...] for moderate to severe pain Ween as kjpxkmoce45 tablet 0 Pantoprazole [address] [...] Rfl: 0 Cholecalciferol (Vitamin D3) 1.25 MG (06730 UT) capsule, Take 1 capsule by mouth [...] by Nasal route once for 1 dose. [place] into the nose as directed. Call 911. [...] compression stockings. She is using Tylenol and Darwin as needed for pain control. Reports is [...] -Erx to pharmacy for refill of the Darwin at this time, she knows to be [...] arise. All pertinent portions of the clinical client support associate documentation was reviewed and agree. Елена Martínez Ortho Nurse - Established Patient Intake Room#: 4 Date: 04/27/2025 9:09 AM Patient: Sakshi Hightower MR#: [id number] : 1965 Age: 60 y.o. 3wk L TKA Pt stated she is doing good,but just painful that is a 01/07. Pt stated she needs a refillon her pain meds took the last one last night. Pt was wearing her jamie hose and using a walker at the time. Referring Physician: Sameer Wilburn PA-C Insurance: Payor: [employer] [place] / Plan: [employer] Access / Product Type: *No Product [...] tablet 0 Cholecalciferol (Vitamin D3) 1.25 MG (17412 UT) capsule Take 1 capsule by mouth [...] by Nasal route once for 1 dose. [place] into the nose as directed. Call 911. [...] for moderate to severe pain Ween as mrhsafeya43 tablet 0 Pantoprazole [address] [...] Rfl: 0 Cholecalciferol (Vitamin D3) 1.25 MG (68489 UT) capsule, Take 1 capsule by mouth [...] by Nasal route once for 1 dose. [place] into the nose as directed. Call 911. [...] spasms., Disp: , Rfl: documented in this [facility]10-18-2025 Emergency department Note* Zofia Davison RN - 04/17/2025 1:26 AM EDT K gtt not available in ED pyxis, PCC notified about med need. [facility]10-18-2025 Emergency department Note* Zofia Davison RN - 04/17/2025 1:26 AM EDT K gtt not available in ED pyxis, PCC notified about med need. * Jigar Reynolds MD - 04/17/2025 12:39 AM EDT Emergency Department Report [facility] EMERGENCY DEPARTMENT Service Date:.04/17/25 PCP: Jimmie [...] tablet, R-0 Cholecalciferol (Vitamin D3) 1.25 MG (84051 UT) capsule Take 1 capsule by mouth [...] by Nasal route once for 1 dose. [place] into the nose as directed. Call 911. [...] Insecurity: No Food Insecurity (04/05/2025) Received from [facility] Hunger Screening Within the past 12 months we worried whether our food would run out before we got money to buy more.: Never True Within the past 12 months the food we bought just didn't last and we didn't have money to get more.: Never True Transportation Needs: No Transportation Needs (03/15/2025) Received from [facility] PRAPARE - Transportation Lack of Transportation (Medical): No Lack of Transportation (Non-Medical): No Physical Activity: Insufficiently Active (08/31/2024) Received from [facility] Exercise Vital Sign On average, how many days per week do you engage in moderate to strenuous exercise (like a brisk walk)?: 3 days On average, how many minutes do you engage in exercise at this level?: 20 min Stress: Not on file Social Connections: Not on file Personal Safety: Not on file Housing Stability: Low Risk (10/15/2023) Received from [facility] Housing Instability Are you worried or concerned [...] Surgeon: Joaquín Baez MD; Location: [facility] ONT OR ASSISTANCE SURGICAL NAVIGATION MUSCULOSKELETAL IMAGELESX Left 04/07/2025 Laterality: Left; Surgeon: Joaquín Baez MD; Location: [facility] ONT OR GASTRIC BYPASS 2014 BACK SURGERY 2000 laminectomy L4-5 TONSILLECTOMY [3] Allergies Allergen Reactions [place] Meal Anaphylaxis States she has EPI pen Peanut-Containing Drug Products Anaphylaxis Tree nuts Tramadol Anaphylaxis, Hives, Itching and Rash Other Reaction(s): Intolerance Heart racing Gramineae Pollens Itching ragweed Jigar Reynolds MD 04/17/25 0630 documented in this [facility]10-18-2025 Physician Emergency department Note* Jigar Reynolds MD - 04/17/2025 12:39 AM EDT Emergency Department Report [facility] EMERGENCY DEPARTMENT Service Date:.04/17/25 PCP: Jimmie [...] tablet, R-0 Cholecalciferol (Vitamin D3) 1.25 MG (04942 UT) capsule Take 1 capsule by mouth [...] by Nasal route once for 1 dose. [place] into the nose as directed. Call 911. [...] Insecurity: No Food Insecurity (04/05/2025) Received from [facility] Hunger Screening Within the past 12 months we worried whether our food would run out before we got money to buy more.: Never True Within the past 12 months the food we bought just didn't last and we didn't have money to get more.: Never True Transportation Needs: No Transportation Needs (03/15/2025) Received from [facility] PRAPARE - Transportation Lack of Transportation (Medical): No Lack of Transportation (Non-Medical): No Physical Activity: Insufficiently Active (08/31/2024) [facility] Exercise Vital Sign On average, how many days per week do you engage in moderate to strenuous exercise (like a brisk walk)?: 3 days On average, how many minutes do you engage in exercise at this level?: 20 min Stress: Not on file Social Connections: Not on file Personal Safety: Not on file Housing Stability: Low Risk (10/15/2023) Received from [employer] [facility] FAD ? IO Housing Instability Are you worried or concerned [...] Laterality: Left; Surgeon: Joaquín Baez MD; Location: [facility] OR ASSISTANCE SURGICAL NAVIGATION MUSCULOSKELETAL IMAGELESX Left 04/07/2025 Laterality: Left; Surgeon: Joaquín Baez MD; Location: [facility] ONT OR GASTRIC BYPASS 2014 BACK SURGERY 1999 laminectomy L4-5 TONSILLECTOMY [3] Allergies Allergen Reactions [place] Meal Anaphylaxis States she has EPI pen Peanut-Containing Drug Products Anaphylaxis Tree nuts Tramadol Anaphylaxis, Hives, Itching and Rash Other Reaction(s): Intolerance Heart racing Gramineae Pollens Itching ragweed Jigar Reynolds MD 04/17/2530 [facility]10-08-2025 Miscellaneous Notes* Nursing Notes - Gayle Osorio RN - 04/07/2025 6:46 PM EDT Message sent to Dr. Valentin LABORER SAWMILL's regarding hemovac leaking air, yet still pulling some drainage through tubing and into canister. Connections checked. New canister applied. No success. Hemovac discontinued per SB LABORER SAWMILL verbal Order. * Nursing Notes - Gayle [...] patient ;child (daughter Alpa) Contact Information This Guard Supervisor is Primary Data Quality Consultant/SW Yes Data Quality Consultant Name Shari Vazquez RNhospice physician's Living Environment Lives With alone (daughter to [...] (going to her daughter's home - [address] [place]) Functional Status Patient's Functional Status Prior To This Admission? Independent Concerns With Patient Being Able To Care For Themselves At Discharge? Has Assistance (Friend, Family, Skilled Provider) Employment/Financial Employed? 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 Patient states the plan is to discharge to her daughter's home with family/friends assistance, [facility] requested and then OP therapy with [facility] [place]. Patient has a wheeled walker. Patient denies any other questions or needs at this time. CM to continue to follow and assist with discharge plans. documented in this encounterKindred Healthcare10-08-2025 Nurse Note* Nursing Notes - Gayle Osorio RN - 04/07/2025 6:46 PM EDT Message sent to Dr. Valentin LABORER SAWMILL's regarding hemovac leaking air, yet still pulling some drainage through tubing and into canister. Connections checked. New canister applied. No success. Hemovac discontinued per SB LABORER SAWMILL verbal Order. [facility]10-08-2025 Nurse Note* Nursing Notes - Gayle Osorio RN - 04/07/2025 6:21 PM EDT Written and verbal discharge instructions reviewed by SB RN. Daughter at bedside. Understanding voiced. Questions encouraged and answered. [facility]10-08-2025 Hospital Discharge instructions* Discharge Instructions* Aliya Leong [...] Drain removal: Please call Dr Baez's nurse ([phone]) the morning after discharge with the recorded [...] do apply apressure dressing, please call the office/sales commissions analyst provider so that they can direct you [...] at home. Dr. Baez's office number is [phone], option #2 for the nurse. We want to hear from you if you are having any concerns related to the surgery. If after hours, please be assured that we are still available to you! Simply contact the [facility] hospital number, and ask for Dr. [...] to your closest ER. documented in this encounterKindred Healthcare10-08-2025 Nurse Note* Nursing Notes - Gayle Osorio RN - 04/07/2025 3:18 PM EDT Assisted out of recliner chair with 2 assist. Gait belt on standby assist to restroom with walker. Tolerated well. [facility] Adku Wfiwgm28-10-9353 History of Present illness Narrative* Ana Gautam [...] initial instruction. [facility]3 weeks and family [...] Dr. Baez's prescribing practice. documented in this encounterRio Grande HospitalEstoreify [facility] HospitalQjzslu21-17-0200 Nurse Note* Nursing Notes - Gayle Osorio RN - 04/07/2025 1:00 PM EDT Lunch tray ordered. [facility] [email or web address] [id number] Nurse Note* Madai Arroyo RN - 04/07/2025 [...] to PACU with Fiona VALLES and RN pool cleaner. Reports given to Vanessa DE at 1140H. * Violeta Mart RN - 04/07/2025 10:24 AM EDT OR 4 Temperature 66.1F Humidity 42.5% documented in this encounterRio Grande HospitalEstoreify [facility] HospitalDlkcfz84-47-3516 Nurse Surgical operation note* Madai Arroyo RN - 04/07/2025 12:05 PM EDT Left adductor canal nerve block complete at this time. Pt is in stable condition and denies any numbness around lips, ringing in ears, or metallic taste in mouth. Pt now lying on back and awake. Pt able to answer questions appropriately. Fiona VALLES finishing with dressing. No complaints at this time. [facility] HospitalEstoreify [facility] Powein37-41-2661 Nurse Surgical operation note* Madai Arroyo RN - 04/07/2025 11:58 AM EDT Left adductor canal nerve block started at this time by Fiona VALLES. Pt is in stable condition at this time. Fiona VALLES is cleaning block site. Pt is lying on back with left thigh exposed. Pt still able to answer questions. No other complaints at this time. [facility]10-08-2025 Nurse Surgical operation note* Violeta Mart RN - 04/07/2025 11:40 AM EDT Patient transported to PACU with Fiona VALLES and RN pool cleaner. Reports given to Vanessa DE at 1140H. [facility]10-08-2025 Nurse Surgical operation note* Violeta Mart RN - 04/07/2025 10:24 AM EDT OR 4 Temperature 66.1F Humidity 42.5% [facility]10-08-2025 Nurse Note* Nursing Notes - Shari Hogan RN - 04/07/2025 7:15 AM EDT Patient ambulated to the bathroom with nursing staff [facility]10-08-2025 Nurse Note* Nursing Notes - [...] discharged with 2 pairs of JAMIE hose. [facility]10-06-2025 History of Present illness Narrative* Jimmie Garcia, [...] Head: Normocephalic. Nose: Nose normal. Mouth/Throat: Lips: [place]. Mouth: Mucous membranes are moist. Dentition: Abnormal [...] were applied: encouragement toexercise. documented in this encounterHolden Memorial HospitalGreengro Technologies09-19-2025 Miscellaneous Notes* Telephone Encounter - Coral White [...] - 03/19/2025 8:42 AM EDT Emailed to [email or web address] * Telephone Encounter - Vanessa Garcia CMA - 03/19/2025 8:42 AM EDT Patient emailed me back and stated that she needs RTW to state 03/22/25 documented in this encounterH[facility] Hospital09-19-2025 Telephone encounter Note* Telephone Encounter - Coral White CMA - 03/19/2025 8:42 AM EDT Patient is really sick still and wanted to know if she could have a note for last night and tonightto be off [facility]09-19-2025 Telephone encounter Note* Telephone Encounter - Jimmie Garcia DO - 03/19/2025 8:42 AM EDT Sure. Note is printed [facility]09-19-2025 Telephone encounter Note* Telephone Encounter - Vanessa Garcia CMA - 03/19/2025 8:42 AM EDT Emailed to [email or web address] [facility]09-19-2025 Telephone encounter Note* Telephone Encounter - Vanessa Garcia CMA - 03/19/2025 8:42 AM EDT Patient emailed me back and stated that she needs RTW to state 03/22/25 [facility] [id number] History of Present illness Narrative* Jimmie Joyamookie, - 03/15/2025 4:00 PM EDT Subjective Patient ID: Sakshi Hightower is a 60 y.o. female. Lina presents today for her annual wellness. She had labs done last week at [facility] for her wellness that was ordered [...] Enlarged and swollen. Not pale. Mouth/Throat: Lips: [place]. Mouth: Mucous membranes are moist. Pharynx: Postnasal [...] and will cover with an antibiotic. Continue hsnz-lrh-tnlkiuo medications Chronic bilateral low back pain without [...] a dayfor 7 days. documented in this encounterCleveland Clinic Children's Hospital for RehabilitationAccordent Technologies [facility] [phone] Nurse Note* Nursing Notes - Shari Vazquez RN - 02/25/2025 9:29 AM EDT 02/25/25921 Referral Information Arrived From home or self-care Information Source Information Source patient ;child (daughter Alpa) Contact Information This Guard Supervisor is Primary Data Quality Consultant/SW Yes Data Quality Consultant Name Shari Vazquez RNhospice physician's Living Environment Lives With alone (daughter to [...] (going to her daughter's home - [address] [place]) Functional Status Patient's Functional Status Prior To This Admission? Independent Concerns With Patient Being Able To Care For Themselves At Discharge? Has Assistance (Friend, Family, Skilled Provider) Employment/Financial Employed? 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) Patient Goal for Discharge Return home with assistance from family and friends (working, family time, travel and less pain) Expected Discharge Disposition HH ([facility] then [facility] in [place]) Anticipated Services at Discharge Physical Therapy;Fci;Outpatient follow up;Outpatient rehab services Transportation Available car;family or friend will provide Assessment/Concerns to be Addressed Concerns To Be Addressed no discharge needs identified;denies needs/concerns at this time CM spoke with patient this date to discuss post-surgical discharge plans. Patient states the plan is to discharge to her daughter's home with family/friends assistance, [facility] requested and then OP therapy with [facility] in [place]. Patient has a wheeled walker. Patient denies any other questions or needs at this time. CM to continue to follow and assist with discharge plans. [facility]08-06-2025 History of Present illness Narrative* Evelin Hernandez - 02/03/2025 1:50 PM EDT Ortho Nurse - Established Patient Intake Room#: room 2--- LABORER SAWMILL - referral from Dr. Garcia - Left knee pain for years; stairs are difficult; knee gives out. She has tried injections and therapy with last injections being 3 months ago. She rates her pain on a scale of 8/10. denies nicotine; surgery discussion Date: 02/03/2025 2:07 PM Patient: Sakshi Hightower MR#: [id number] : 1965 Age: 60 y.o. Referring Physician: [...] 2 puffs. Cholecalciferol (Vitamin D3) 1.25 MG (46468 UT) capsule Take 1 capsule by mouth [...] the more it hurts. Patient has tried Darwin,injections and weight modification in the past, which do not provide relief from current symptoms. Adarsh gandhi is here today for evaluation and to determine treatment options. Pain is 8-9/10 on a daily basis. History of gastric bypass surgery. Patient is seeing pain management in [place] where she is prescribed Darwin. PHYSICAL EXAM: This is an alert, oriented, [...] joint space, subchondral sclerosis, osteophyte formation, and lfay-ue-vytm contact. IMPRESSION: 1.) Severe symptomatic end-stage arthritis, [...] nasal MRSA screening, scheduling an appointment for [facility] [place] and the potential surgical date, and reviewing [...] Insecurity: No Food Insecurity (08/31/2024) Received from [facility] Hunger Screening Within the past 12 months we worried whether our food would run out before we got money to buy more.: Never True Within the past 12 months the food we bought just didn't last and we didn't have money to get more.: Never True Physical Activity: Insufficiently Active (08/31/2024) Received from [facility] Exercise Vital Sign Days of Exercise per Week: 3 days Minutes of Exercise per Session: 20 min Housing Stability: Low Risk (10/15/2023) Received from [facility] Housing Instability Are you worried or concerned that in the next two months you may not have stable housing that you own, rent or stay in as a part of a household?: No Current Outpatient Medications: Albuterol 108 (90 Base) MCG/ACT Aero Soln inhaler, Inhale 2 puffs., Disp: , Rfl: Cholecalciferol (Vitamin D3) 1.25 MG (19530 UT) capsule, Take 1 capsule by mouth [...] spasms., Disp: , Rfl: Allergies Allergen Reactions [place] Meal Anaphylaxis States she has EPI pen Peanut-Containing Drug Products Anaphylaxis Tree nuts Tramadol Anaphylaxis, Hives, Itching and Rash Other Reaction(s): Intolerance Heart racing Gramineae Pollens Itching ragweed documented in this encounterKind[facility]06-[facility] History of Present illness Narrative* Jimmie Garcia, - 12/03/2024 4:15 PM EDT Subjective Patient ID: Sakshi Hightower is a 59 y.o. female. Lina presents today for recheck of multiple problems. She has been seeing pain management for her left knee pain. She has arthritis and was told she needed a knee replacement. She has been seeing painmanagement and was taking Darwin but that did not help. She also [...] Exam Vitals reviewed. Exam conducted with a medical radiation therapist present (Mario Ibanez MS 3). Constitutional: Appearance: [...] is intact. Romberg sign negative. Coordination normal. Jifssm-Nrww-Btkxfs Test and Heel to [place] Test normal. [...] lorazepam for p.r.n. use. documented in this encounterH[facility] Hospital05-22-2025 NoteProcedure: Bilateral Genicular Nerve Block of [...] on his/her behalf by a trained medical center manager. The creation of this document is based on the provider?s statements to the medical center manager. Electronically signed by Manpreet Hampton MD 11/19/24 16:24 EDT Electronically signed by Mireya Rm 11/19/2024 16:08 [facility]05-22-2025 NoteHistory of Present Illness CHIEF COMPLAINT: [_] [...] on his/her behalf by a trained medical center manager. The creation of this document is based on the provider?s statements to the medical center manager. 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 Cigarettes Family History Hypertension: Father. Health Status Family Member(s) Lab Results Microbiology - Current Encounter No qualifying data available. Electronically signed by Manpreet Hampton MD 11/19/24 16:24 EDT Electronically signed by JagMireya araujo 11/19/2024 15:39 [facility] History of Present illness Narrative* Jimmie [...] Exam Vitals reviewed. Exam conducted with a medical radiation therapist present (Leo Davison MS3). Constitutional: General: She [...] diet and exercise program. documented in this encounterHarrison [facility] Hospital09-23-2024 Miscellaneous Notes* Telephone Encounter - Vanessa Garcia CMA - 03/23/2024 9:31 AM EDT Patient called and stated that she needs the next 2 days off. * Telephone Encounter - Yanet Carrera - 03/23/2024 9:31 AM EDT Patient called back and needs the time off extended going back to work 03/25 please fax to [phone] * Telephone Encounter - Jimmie Garcia DO - 03/23/2024 9:31 AM EDT Okay. Note is printed to be faxed * Telephone Encounter - Yanet Carrera - 03/23/2024 9:31 AM EDT faxed documented in this encounterHarrison [facility] Hospital09-23-2024 Telephone encounter Note* Telephone Encounter - Vanessa Garcia CMA - 03/23/2024 9:31 AM EDT Patient called and stated that she needs the next 2 days off. [facility]09-23-2024 Telephone encounter Note* Telephone Encounter - Yanet Carrera - 03/23/2024 9:31 AM EDT Patient called back and needs the time off extended going back to work 03/25 please fax to [phone] [facility]09-23-2024 Telephone encounter Note* Telephone Encounter - Jimmie Garcia DO - 03/23/2024 9:31 AM EDT Okay. Note is printed to be faxed [facility]09-23-2024 Telephone encounter Note* Telephone Encounter - Yanet Carrera - 03/23/2024 9:31 AM EDT faxed [facility]09-19-[facility] History of Present illness Narrative* Jimmie [...] tomorrow. 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 She does [...] mg total) before bedtime. documented in this encounterHarrison [facility] Hospital06-17-2024 Miscellaneous Notes* Telephone Encounter - Simona [...] but she is willing to drive to [place] to get itif you allow it * Telephone Encounter - Jimmie Garcia DO - 12/16/2023 4:53 PM EDT Okay. I printed out a form to faxed to [facility] * Telephone Encounter - Yanet Carrera - 12/16/2023 4:53 PM EDT done documented in this encounterHarrison [facility] Hospital06-17-2024 Telephone encounter Note* Telephone Encounter - Simona Bailon CMA - 12/16/2023 4:53 PM EDT Pt called wanted to know if you could send over something for nausea she can't get ahold of it , stated she did stop the wegovy this past week to see if it is from that [facility]06-17-2024 Telephone encounter Note* Telephone Encounter - Jimmie Garcia DO - 12/16/2023 4:53 PM EDT Okay I sent in Phenergan. It probably is the Wegovy [facility]06-17-2024 Telephone encounter Note* Telephone Encounter - [...] there about talking to you about switching [facility]06-17-2024 Telephone encounter Note* Telephone Encounter - Simona Bailon CMA - 12/16/2023 4:53 PM EDT Pt called back said her pharmacy dont do compound but she is willing to drive to [place] to get itif you allow it [facility]06-17-2024 Telephone encounter Note* Telephone Encounter - Jimmie Garcia DO - 12/16/2023 4:53 PM EDT Okay. I printed out a form to faxed to [facility]06-17-2024 Telephone encounter Note* Telephone Encounter - Yanet Carrera - 12/16/2023 4:53 PM EDT done [facility]04-16-2024 History of Present illness Narrative* Jimmie [...] doesn't have any symptoms. [facility]* Diagnosis Primary osteoarthritis of knee, unspecified laterality- Primary documented [facility]* Diagnosis Morbid obesity ([facility])- Primary Morbid obesity documented in this encounter [facility]* Diagnosis Class 2 severe obesity due to excess calories with serious comorbidity and body mass index (BMI) of39.0 to 39.9 in adult ([facility])- Primary documented in this encounter [facility]* Diagnosis Anxiety- Primary Anxiety state, unspecified Depression, unspecified depression type MARYLU (obstructive sleep apnea) Obstructive sleep apnea (adult) (pediatric) Gastroesophageal reflux disease, unspecified whether esophagitis present Class 2 severe obesity due to excess calories with serious comorbidity and body mass index (BMI) of39.0 to 39.9 in adult ([facility]) Screen for colon cancer Special screening for malignant neoplasms, colon Encounter for screening mammogram for malignant neoplasm of breast Ex-cigarette smoker Personal history of tobacco use, presenting hazards to health documented in this encounter [facility]* Diagnosis Nausea and vomiting, unspecified vomiting type- Primary Hypokalemia Hypopotassemia Other fatigue Class 1 obesity due to excess calories with serious comorbidity and body mass index (BMI) of 33.0 to 33.9 in adult documented in this encounter [facility]* Diagnosis Class 1 obesity due to excess calories with serious comorbidity and body mass index (BMI) of 33.0 to 33.9 in adult- Primary documented in this encounter [facility]* Diagnosis Class 1 obesity due to excess calories with serious comorbidity and body mass index (BMI) of 33.0 to 33.9 in adult- Primary documented in [facility]* Diagnosis Class 1 obesity due to excess calories with serious comorbidity and body mass index (BMI) of 34.0 to 34.9 in adult- Primary Tremor Abnormal involuntary movements Recurrent major depressive disorder, remission status unspecified Chronic bilateral low back pain without sciatica Primary osteoarthritis of left knee Anxiety Anxiety state, unspecified documented [facility]* Diagnosis Chronic bilateral low back pain without sciatica- Primary documented in [facility]* Diagnosis Primary osteoarthritis of left knee- Primary documented in this encounter [facility]* Diagnosis Left knee pain, unspecified chronicity- Primary Osteoarthritis of left knee, unspecified osteoarthritis type [facility]* Diagnosis Well adult exam- Primary Routine [...] pain without sciatica documented in this encounter [facility]* Diagnosis Pre-op evaluation- Primary Primary osteoarthritis of left knee Mild intermittent asthma, unspecified whether complicated Class 1 obesity due to excess calories with serious comorbidity and body mass index (BMI) of 34.0 to 34.9 in adult documented in this encounter [facility]* Diagnosis Acute postoperative pain of left knee- Primary Osteoarthritis of left knee, unspecified osteoarthritis type [facility] Diagnosis Nausea and vomiting, unspecified vomiting type- Primary Acute post-operative pain Hypokalemia Hypopotassemia documented [facility]* Diagnosis Chronic bilateral low back pain without sciatica Anxiety Anxiety state, unspecified documented [facility]* Diagnosis History of total knee arthroplasty, left- Primary Acute postoperative pain of knee documented in this encounter [facility]* Diagnosis Anxiety Anxiety state, unspecified [facility]* Attachments The following attachments cannot be sent through Care Everywhere. * Nausea and Vomiting (Bulgarian) * Hypokalemia (Bulgarian) documented in this encounterAvita Health SystemInstructionsNot on [...] unspecified laterality Jimmie Garcia, DO [address] [facility] [place] [address] Papo Irizarry MD [address] [facility] [address] [place] [address] Referral IDStatusReasonStart DateExpiration DateVisits RequestedVisits [id number] Review Specialty Services Required / [facility] for referral (narrative)* Medication Prior Authorization - Pending ReviewSpecialtyDiagnoses / ProceduresReferred By ContactReferred To Contact Jimmie Garcia DO [address] [facility] [place] [address] Phone: tel: fax: Referral IDStatusReasonStart DateExpiration DateVisits RequestedVisits [id number] [facility] for visit Narrative* Diagnostic X-Ray (Routine) - Pending ReviewSpecialtyDiagnoses / ProceduresReferred By ContactReferred To Contact Diagnoses Left knee pain, unspecified chronicity Procedures XR KNEE LEFT 4+ VIEWS Joaquín Baez MD [address] [place] [address] Phone: tel: fax: Referral IDStatusReasonStart DateExpiration DateVisits RequestedVisits [id number] Review/ [facility] for visit Narrative* Auth/CertSpecialtyDiagnoses / ProceduresReferred By ContactReferred To Contact Diagnoses Osteoarthritis of left knee, unspecified osteoarthritis type Osteoarthritis of left knee, unspecified osteoarthritis type [M17.12] Procedures AK ARTHRP KNE CONDYLE&PLATU MEDIAL&LAT COMPARTMENTS AK CPTR-ASST SURGICAL NAVIGATION IMAGE-LESS ARTHROPLASTY KNEE TOTAL ASSISTANCE SURGICAL NAVIGATION MUSCULOSKELETAL IMAGELESS ADD-ON PX Joaquín Baez MD [address] [place] [address] Phone: tel: fax: [facility] [address] [place] [address] Referral IDStatusReasonStart DateExpiration DateVisits RequestedVisits [id number] [facility] for visit Narrative* Diagnostic X-Ray (Routine) - New RequestSpecialtyDiagnoses / ProceduresReferred By ContactReferred To Contact Diagnoses History of total knee arthroplasty, left Procedures XR BONE LENGTH STUDY VikramjarrodericЕлена Bessy [address] [place] [address] Phone: tel: fax: Referral IDStatusReasonStart DateExpiration DateVisits RequestedVisits [id number] Fenyfgu40/ [facility] Summary Purpose Family History No Family History Records FoundNo Family History Records FoundNo Family History Records FoundNo Family History Records FoundNo Family History Records Found Advance Directives Date ActivatedDate PrpsxsfeetoCtzicrkh55/8/2025 11:42 AMDate ActivatedDate LdawvqcirkjHstzpcye23/8/2025 11:42 AM Reason for Referral SpecialtyDiagnoses / ProceduresReferred By ContactReferred To Contact Diagnoses Morbid obesity (CMS-HCC) Jimmie Garcia DO [address], [facility] [place] [address] Referral IDStatusReasonStart DateExpiration DateVisits RequestedVisits [id number] / ProceduresReferred By Contact Referred To ContactRadiology Diagnoses Ex-cigarette smoker Procedures CT low dose lung screening (Annual) Jimmie Garcia DO [address], [place] [address] Referral IDStatusReasonStart DateExpiration DateVisits RequestedVisits [id number] Review/ Additional Source Comments INFORMATION SOURCE (unrecogn ized section and content) DATE CREATED AUTHOR 04/02/2022 [facility] DATE CREATED AUTHOR AUTHOR'S ORGANIZ ATION 03/16/[address] [facility] DATE CREATED AUTHOR AUTHOR'S ORGANIZ ATION 11/26/2024 [facility] DATE CREATED AUTHOR AUTHOR'S ORGANIZ ATION 04/03/2025 [facility] DATE CREATED AUTHOR AUTHOR'S ORGANIZ ATION 04/28/2025 [facility] Reason for Visit (unrecogniz ed section and content) ReasonCommentsEmesisX3 weeks, states on prescription weight loss medication. Denies abd painReasonOnset DateCommentsMed Orglfq214ReasonCommentsNew PatientReasonOnset DateCommentsMed Jamqih1302/24/2024easonCommentsFollow-upNot keeping food down, low potassium, holguin tones in urineReasonOnset DateCommentsMed [id number] RefillReasonCommentsWeight Lossdiscussion ReasonComments3 month f/uReasonCommentsPainSpecialtyDiagnoses / Procedures Referred By ContactReferred To ContactOrthopaedic Surgery / Orthopaedics Diagnoses Primary osteoarthritis of left knee Jimmie Garcia, [address] [facility] [place] [address] Phone: tel: fax: Joaquín Baez MD [address] [place] [address] Phone: tel: fax: Referral IDStatusReasonStart DateExpiration DateVisits RequestedVisits [id number] [id number] Exam ReasonCommentsPre-op ExamAfter antibiotic- left total kneeReasonCommentsPost-Op Problem Left knee replaced on Saturday. Now vomiting for a couple days and got worse today. Pain in left knee 04/09. ReasonCommentsPost Op VisitReasonOnset DateCommentsMed Nmlpaf2304/27/2025ReasonOnset DateCommentsMed Piyzgp5405/03/2025 Care Teams (unrecognized sec tion and content) Team MemberRelationshipSpecialtyStart DateEnd Date Jimmie Garcia DO [address] [place] [address] PCP - [facility] Medicine10/15/23Team MemberRelationshipSpecialtyStart DateEnd Date Jimmie Garcia DO [address], [place] [address] [facility]10/15/23Team MemberRelationshipSpecialtyStart DateEnd Date MahnazmookieJimmieDO [address], [place] [address] PCP [facility]10/15/23Team MemberRelationshipSpecialtyStart DateEnd Date MahnazmookieJimmieDO [address], [place] [address] PCP - [facility] Medicine10/15/23Team MemberRelationshipSpecialtyStart DateEnd Date MahnazmookieJimmieDO [address], [place] [address] P[facility]10/15/23Team MemberRelationshipSpecialtyStart DateEnd Date RadhaClaudiaJimmie RochelleDO [address], [place] [address] PCP - [facility] Medicine10/15/23Team MemberRelationshipSpecialtyStart DateEnd Date Radha Jimmie Byrd DO [address] [place] [address] PCP - GeneralFamily Medicine10/15/23Team MemberRelationshipSpecialtyStart DateEnd Date Radha Jimmie Byrd DO [address], [place] [address] PCP - Generalmily Medicine10/15/23Team MemberRelationshipSpecialtyStart DateEnd Date Jimmie Garcia DO [address], [place] [address] PCP - [facility] Medicine10/15/23Team MemberRelationshipSpecialtyStart DateEnd Date Jimmie Garcia DO [address], [place] [address] [facility]23Team MemberRelationshipSpecialtyStart DateEnd Date Jimmie Garcia DO [address], [place] [address] [facility]/15/23Team MemberRelationshipSpecialtyStart DateEnd Date Jimmie Garcia DO [address], [place] [address] [facility]10/15/23Team MemberRelationshipSpecialtyStart DateEnd Date Jimmie Garcia DO [address], [place] [address] PCP - GeneralFamily Medicine10/15/23Team MemberRelationshipSpecialtyStart DateEnd Date MahnazmookieClaudiaJimmie Rochelle [address], [place] [address] [facility]10/15/23Team MemberRelationshipSpecialtyStart DateEnd Date Mahnazmookie Jimmie Byrd DO [address], [place] [address] P[address] [facility]10/15/23Team MemberRelationshipSpecialtyStart DateEnd Date MahnazJimmie damico DO [address], [place] [address] P[address] - [facility]10/15/23Team MemberRelationshipSpecialtyStart DateEnd Date MahnazJimmie damico DO [address], [place] [address] [facility]10/15/23Team MemberRelationshipSpecialtyStart DateEnd Date Jimmie Garcia DO [address], [place] [address] [facility]10/15/23Team MemberRelationshipSpecialtyStart DateEnd Date Jimmie Garcia DO [address], [place] [address] PCP - GeneralFamily Medicine01/04/25Team MemberRelationshipSpecialtyStart DateEnd Date Jimmie Garcia DO [address], [place] [address] [facility]01/04/25Team MemberRelationshipSpecialtyStart DateEnd Date Jimmie Garcia DO [address], [place] [address] [facility] [facility]10/15/23Team MemberRelationshipSpecialtyStart DateEnd Date Jimmie Garcia DO [address], [place] [address] [address] [facility]10/15/23Team MemberRelationshipSpecialtyStart DateEnd Date Jimmie Garcia DO [address], [place] [address] [facility] [facility]10/15/23Team MemberRelationshipSpecialtyStart DateEnd Date Jimmie Garcia DO [address] [place] [address] P[address] [facility]10/15/23Team MemberRelationshipSpecialtyStart DateEnd Date Jimmie Garcia DO [address] [place] [address] PCP - [facility]01/04/25Team MemberRelationshipSpecialtyStart DateEnd Date Jimmie Garcia DO [address] [place] [address] [facility] - [facility]10/15/23Team MemberRelationshipSpecialtyStart DateEnd Date MahnazmookieJimmie [address] [place] [address] PCP - [facility]01/04/25Team MemberRelationshipSpecialtyStgladwin DateEnd Date MahnazJimmie damico [address] [place] [address] [facility] - [facility]01/04/25Team MemberRelationshipSpecialtyStgladwin DateEnd Date Mahnazmookie JimmieDO alfredo [address] [place] [address] [facility] - [facility]01/04/25Team MemberRelationshipSpecialtyStgladwin DateEnd Date MahnazmookieClaudiaJimmie DO Rochelle [address] [place] [address] [facility] - [facility]10/15/23 Scheduled Active and Recently Administ ered [...] action when infusion is complete: Stopped]) Medication Order10/06/[id number]//01/2025 acetaminophen (TYLENOL) tablet 1,000 mg (COMPLETED) 1,000 [...] 2 g, Intravenous, Administer over 15 Minutes, MACHINE FIXER TO PROCEDURE, 1 dose, Starting on Sat04/07/25at 0638, Until Sat04/07/25 at 0939, Other, Pre-operative antibiotic, Pre-op/Pre-Proc * 0939 ($$New Bag$$ - Provider: Fiona Love APRN-[facility]) HYDROmorphone (DILAUDID) injection 0.5 mg (COMPLETED) [...] the amount of diluent recommended by the melon packer. Solution should be sipped slowly, over 5-10 [...] BE BASED ON THE PRIMARY CLINICAL RECORDS. [facility] [employer] [facility]. provides no warranty or guarantee of the accuracy or completeness of information in this document.
--- OUTSIDE RECORDS SUMMARY | 2025-06-26 16:37 | XMS_ITS | Encounter Summary ---
Author Organization [facility] Address [address] [place] [address] Care Team Providers Care Aoc Operations Intelligence Chief Name Role Phone Jimmie Demarco DO Primary Care Provider [phone] Reason for Visit * ReasonOnset SavdUyyniffbKejmb99/15/2025 Encounter Details DateTypeDepartmentCare Team (Latest Contact Info)Vvyghtjeflx07/15/2025Telephone [facility] [address] [phone] Halie Ruggiero LPN Other Social History Tobacco UseTypesPacks/DayYears UsedDateSmoking Tobacco: FormerCigarettes Smokeless Tobacco: Never Comments:Quit 10 years ago Alcohol UseStandard Drinks/WeekCommentsYes0 (1 standard drink = 0.6 oz pure alcohol)occassionalAUDIT-CAnswerDate RecordedQ1: How often do you have a drink containing alcohol?Never04/17/2025Q2: How many drinks containing alcohol do you have on a typical day when you are drinking?Patient does not drink04/17/2025 Frequency of Binge DrinkingNot on file04/17/2025CommentsUnknownSex and Gender InformationValueDate RecordedSex Assigned at BirthNot on fileLegal Sex Grhvyf5108/03/2012 8:42 AM ESTGender OdjanbcdOcisbh90/27/2025 11:46 AM EDTSexual KvosfrxekypBubhbaax87/27/2025 11:46 AM EDTdocumented as of this encounter Miscellaneous Notes * Telephone Encounter - Halie Ruggiero LPN - 06/15/2025 1:49 PM EST Spoke with pt and made her aware of [facility] recommendations. She verbalized understanding and stated she would be going to a pcp follow up appointment with them today. * Telephone Encounter - JONNY Gilbert - 06/15/2025 10:57 AM EST I would defer opiate tx to her PCP and they can manage off work time. * Telephone Encounter - Halie Ruggiero LPN - 06/14/2025 11:24 AM EST Pt had a L TKA on 04/07/25. Pt called concerned of returning to work this Saturday as she is 10 weeks post op d/t continued pain and opioid withdrawal. She reports that she has been on norco and percocet consistently since 1999 d/t back pain. She states that she is working with her PCP and has beengiven suboxone for treatment but is having a very hard time. She states she has been to the ED in [place] for opioid use disorder. Pt stated that she is unsure if she can return to work in this condition. documented in this encounter Plan of Treatment DateTypeDepartmentCare Team (Latest Contact Info)Pxnpubbyvof43/19/2026 2:00 PM ESTOffice Visit [facility] [address] [place] [address] Cayden Mcdaniel APRN-CNP [address] [place] [address] documented as of this encounter Visit Diagnoses Not on filedocumented in this encounter Care Teams Team MemberRelationshipSpecialtyStart DateEnd Date Jimmie Demarco DO [address] [facility], [place] [address] PCP - GeneralFamily Medicine01/04/25documented as of this encounter
--- OUTSIDE RECORDS SUMMARY | 2025-06-26 16:37 | XMS_ITS | Encounter Summary ---
Author Organization [facility] Address [address] [place] [address] Phone Care Team Providers Care Electronic Console Display Operator Name Role Phone Unavailable Primary Care Provider Unavailabl e Encounter Details DateTypeDepartmentCare Team (Latest Contact Info)Mssqvjgoxnt47/18/2025Travel Social History Tobacco UseTypesPacks/DayYears UsedDateSmoking Tobacco: FormerCigarettes Smokeless Tobacco: NeverAlcohol UseStandard Drinks/WeekCommentsNot Currently0 (1 standard drink = 0.6 oz pure alcohol)occCommentsUnknownSex and Gender InformationValueDate RecordedSex Assigned at BirthNot on fileLegal SexFemale 06/14/2025 12:04 PM ESTGender IdentityNot on fileSexual OrientationNot on file documented as of this encounter Functional Status * Communicable Disease ScreeningQuestionAnswerDate of AssessmentAuthorDo you have any of the following new or worsening symptoms?Yymptwrj42/18/2025 9:58 AM Richelle Ferrell documented as of this encounter Plan of Treatment Not on file documented as of this encounter Visit Diagnoses Not on filedocumented in this encounter
--- OUTSIDE RECORDS SUMMARY | 2025-06-26 16:37 | XMS_ITS | Encounter Summary ---
Author Organization [facility] Address [address] [address] Phone Care Team Providers Care Tooler Name Role Phone Jimmie Demarco Primary Care Provider [phone] Reason for Visit * ReasonOnset PpnqVxcwavdtGjvgyuc94/23/2025 Encounter Details DateTypeDepartmentCare Team (Latest Contact Info)Wreekpwpzap51/23/2025Results Follow-Up [facility] [address] [facility] [address] [phone] Malik Robles DO [address] [facility], [facility] [address] [place] [address] [facility] Social History Tobacco UseTypesPacks/DayYears UsedDateSmoking Tobacco: FormerCigarettes Smokeless Tobacco: NeverAlcohol UseStandard Drinks/WeekCommentsNot Currently0 (1 standard drink = 0.6 oz pure alcohol)occCommentsUnknownSex and Gender InformationValueDate RecordedSex Assigned at BirthNot on fileLegal SexFemale 06/14/2025 12:04 PM ESTGender IdentityNot on fileSexual OrientationNot on file documented as of this encounter Miscellaneous Notes * Telephone Encounter - Aimee Jamil MA - 06/22/2025 2:52 PM EST Contacted pt to advise, pt verbalized understanding. No further action needed at this time. ----- Message from Malik Robles DO sent at 06/22/2025 1:31 PM EST ----- Please let Lina know that her ultrasound shows gallbladder sludge no significant stones. As she is improving I do not think this needs worked up presently but if her nausea comes back or if her ulcer is healed then surgical referral may be necessary ----- Message ----- From: Interface, Radiology Results In Sent: 06/21/2025 1:48 PM EST To: Malik Robles DO documented in this encounter Plan of Treatment Not on file documented as of this encounter Visit Diagnoses Not on filedocumented in this encounter Care Teams Team MemberRelationshipSpecialtyStart DateEnd Date Jimmie Demarco DO [address] [facility], [place] [address] PCP - GeneralFamily Phnumzvs77/22/25documented as of this encounter
--- OUTSIDE RECORDS SUMMARY | 2025-06-26 16:37 | XMS_ITS | Clinical Summary ---
Author Organization [facility] Address [address] [place] [address] Care Team Providers Care Physical Scientist Name Role Phone Jimmie Demarco DO Primary Care Provider [phone] Allergies Active AllergyReactionsCriticalityNoted DateCommentsAlmond MealAnaphylaxisHigh 08/10/2015 States she has EPI pen Gramineae XqugbcgXdwagkiMftppk87/22/2020 ragweed Peanut-Containing Drug GsomjgpkPmmqmmwpwqbJjoy28/22/2020 Tree nuts TramadolAnaphylaxis,Hives,Itching,OcmcNcbr95/15/2001 Other Reaction(s): Intolerance Heart racing Medications MedicationSigDispense QuantityRefillsLast FilledStart DateEnd DateStatus Albuterol 108 (90 Base) MCG/ACT Aero Soln inhaler Inhale 2 puffs.Active Cholecalciferol (Vitamin D3) 1.25 MG (35943 UT) capsule Take 1 capsule by mouth [...] as needed for Mild Pain. 50 tablet 5Active Docusate 100 MG capsule Take 1 capsule by mouth 2 times daily. 60 capsule 04/07/2025tive apixaban (Eliquis) 2.5 MG tablet Take 1 tablet by mouth every 12 hours. 70 tablet 04/07/2025tive Multiple Vitamin (Multivitamin Adult) tablet Take 1 tablet by mouth daily. 30 tablet 04/07/2025tive omeprazole [address] capsule Take 1 capsule by mouth daily. 30 capsule 5Active naloxone 4 MG/0.1ML 1 spray by Nasal route once for 1 dose. [place] into the nose as directed. Call 911. If no response in 2 minutes use a new nasal spray in other nostril. Repeat until help arrives. 1 Each 04/07/2025tive Potassium chloride 20 MEQ Tab CR tablet Take 1 tablet by mouth 2 times daily with meals for 3 days. 6 tablet 5Active Promethazine 25 MG tablet Take 1 tablet by mouth every 6 hours as needed (Nausea/Vomiting). 10 tablet 5Active Amoxicillin 500 MG capsule Take 4 capsules 1 hour before procedure 8 capsule 6Active hydroCODone-acetaminophen 5-325 MG tablet Indications:History of total knee arthroplasty, leftTake 1 tablet by mouth every 8 hours as needed for Moderate Pain for up to 7 days. 21 tablet 5Active Active Problems No known active problems Encounters DateTypeDepartmentCare NveuBxvbxgujrgc62/15/2025Telephone [facility] [address] [place] [address] Halie Ruggiero LPN Other05/19/2025 3:00 PM ESTOffice Visit [facility] [address] [place] [address] Елена Hughes Right knee pain, unspecified chronicity (Primary Dx); Primary osteoarthritis of right knee05/19/2025 2:34 PM EST - 05/19/2025 11:59 PM ESTHospital Encounter [facility] Radiology [address] [place] [address], [place] [address] Елена Hughes Discharge Disposition: Home or Self Care05/10/2025Tephone [facility] [address] [place] [address], [place] [address] Halie Ruggiero LPN Medication Zegiqza9505/03/2025Tephone [facility] [address] [place] [address], [place] [address] Halie Ruggiero LPN Medication Bqaafay6704/27/2025 9:20 AM EDTOffice Visit [facility] [address] [place] [address], [place] [address] Елена Hughes History of total knee arthroplasty, left (Primary Dx); Acute postoperative pain of knee04/27/2025 8:55 AM EDT - 04/27/2025 11:59 PM EDT Hospital Encounter [address] [place] [address] Елена Hughes Discharge Disposition: Home or Self Care04/19/2025[facility] [address] [place] [address], [place] [address] Halie Ruggiero LPN Knee Pain; Medication Tfjzkvfriy33/18/2025 12:25 AM EDT - 04/17/2025 4:14 AM EDT Emergency [facility] Emergency Department [address] [place] [address], [place] [address] Jigar Reynolds MD Discharge Disposition: Home or Self Care04/17/20255748Qlihet41/13/2025[facility] [address] [place] [address] Miriam Dang Medication Hkpdtvhpba99/09/2025[facility] [address] [place] [phone] Gordon, Taylor, RN Post-Discharge Follow Up04/07/2025 9:31 AM EDTAnesthesia Event [facility] [address] [place] [address] Fiona Love APRN-REENA 04/07/2025 9:00 AM EDT - 04/07/2025 10:15 AM EDTSurgery [facility] [address] [place] [address] Emeterio Ledesma MD ARTHROPLASTY KNEE TOTAL04/07/2025 6:16 AM EDT - 04/07/2025 7:12 PM EDTHospital Encounter [facility] [address] [place] [address] Emeterio Ledesma MD Osteoarthritis of left knee, unspecified osteoarthritis type Discharge Disposition: Home Health Care SvTelephone [facility] Med Surg [address] [place] [address] Taylor Leyva RN Follow-up03/30/2025Telephone [facility] [address] [place] [address] Emeterio Ledesma MD Returning Phone Callfrom Last 3 Months Family History Medical HistoryRelationNameCommentsDementiaMotherRelationNameStatusComments [...] RecordedSex Assigned at BirthNot on fileLegal Sex Gxakjt0508/03/2012 8:42 AM ESTGender FdsowvucVpkffq98/27/2025 11:46 AM EDTSexual EssbpsgkzmuOgiejgju84/ 11:46 AM EDT Last Filed Vital Signs Vital SignReadingTime TakenCommentsBlood Agvzjjww469/8904/17/2025 4:00 AM EDT Knrle675304/17/2025 4:00 AM GNYHqjioduaaap73.9 ??C (98.5 ??F)05/19/2025 2:50 PM ESTRespiratory Cuaz415004/17/2025 4:00 AM EDTOxygen Esztvigtqg997%04/17/2025 4:00 AM EDTInhaled Oxygen Concentration--Kplctm09.3 kg (210 lb 3.2 oz)05/19/2025 2:50 PM HOCYgzpkl178.7 cm (5' 8 )05/19/2025 2:50 PM ESTBody Mass Index31.9605/19/2025 2:50 PM EST Plan of Treatment DateTypeDepartmentCare Team (Latest Contact Info)Qygtrbhhddw49/19/2026 2:00 PM ESTOffice Visit [facility] [address] [place] [address] Cayden Mcdaniel, LEAD GAME DESIGNER-STEREO EQUIPMENT INSTALLER [address] [place] [address] Health MaintenanceDue DateLast DoneCommentsHEPATITIS C VIRUS WGRSNNJXS1966 HIV SCREENING MRQGPEKJNB44/05/1981HEP B VACCINE (1 of 3 - 19+ 3-dose series) 1985CERVICAL CANCER SCREENING LSNYMRDAFK77/05/1987LIPID SCREENING 2006COLORECTAL CANCER SCREENING DEYILXRKTI78/05/2011MAMMOGRAM SCREENING HVDXEKUFWF68PNEUMOCOCCAL VACCINE SERIES (2 of 2 - PCV20 or PCV21)01/03/201601/07/2004COVID-19 VACCINE (3 - 2024- season)2025 12/07/2020, 11/09/2020INFLUENZA VACCINE (#1)2025ZOSTER (SHINGLES) VACCINE (2 of 2)509/0480VHDVIUK19, 11/19/2005PNEUMOCOCCAL VACCINE AGPQOGJrebzxzekwkj50/01/2005TDAP (ADULT)Psawrbdps04/15/2025, 11/19/2005 Medical Devices ImplantedTypeAreaManufacturerDevice IdentifierShelf Expiration DateModel / Serial / LotAttune Patella Medialized Dome 32mm Cemented Aox Implanted:Qty: 1 on 04/07/2025 by Emeterio Ledesma MD at [facility] Left: KneeDEPUY ORTHOPAEDICS INC10/28/[id number] / / [id number] Femoral Cruciate Retaining Size 6 Left Cemented Implanted:Qty: 1 on 04/07/2025 by Emeterio Ledesma MD at [facility] Left: KneeDEPUY ORTHOPAEDICS INC//[id number] / / [id number] Knee System Tibial Base Fixed Bearing Size 5 Cemented Implanted:Qty: 1 on 04/07/2025 by Emeterio Ledesma MD at [facility] Left: KneeDEPUY ORTHOPAED[employer] INC04/30/[id number] / / [id number] Knee System Tibial Insert Fixed Bearing Cruciate Retaining Size 6 7mm Aox Implanted:Qty: 1 on 04/07/2025 by Emeterio Ledesma MD at [facility] Left: KneeDEPUY ORTHOPAEDICS INC07/31/[id number] / / [id number] R 1x40 Implanted:Qty: 1 on 04/07/2025 by Emeterio Ledesma MD at [facility]: Knee [id number] / / [id number] R 1x40 Implanted:Qty: 1 on 04/07/2025 by Emeterio Ledesma MD at [facility]: Knee [id number] / / [id number] Procedures Procedure NamePriorityDate/TimeAssociated DiagnosisCommentsPR DRAIN/INJECT LARGE JOINT/BURSA XLFDWNTHORGRdrbins57/19/2025 3:00 PM EST Primary osteoarthritis of right knee CT ABDOMEN/PELVIS WITH BQEUWMUCILBW27/18/2025 1:49 AM EDT COMPREHENSIVE METABOLIC SDJBHNQBM20/18/2025 12:35 AM EDT HC CBC EDIFF & CTUXWUKIHXBL71/18/2025 12:35 AM EDT LACTATE, QCOEYANOX66/18/2025 12:35 AM EDT BWQFNSTWFVRXM89/18/2025 12:35 AM EDT PROTIME-SAYBEDP3104/17/2025 12:35 AM EDT VTSMOEG8004/17/2025 12:35 AM EDT XR KNEE LEFT 1-2 HGETDFszbqzv89/08/2025 12:42 PM EDT PROCEDURE - REGIONAL TDOMIDGUYESbnxuxe27/08/2025 12:22 PM EDT PROCEDURE NOTE (SCANNED)Ovgwnwr1204/07/2025 12:15 PM EDTCARDIAC RHYTHMRoutine 04/07/2025 12:13 PM EDTORDERS (SCAN)Tjledpm6304/07/2025 12:09 PM EDTSURGICAL PATHOLOGY XRKCTZUAjhbzcc28/08/2025 10:22 AM EDT Osteoarthritis of left knee, unspecified osteoarthritis type PROCEDURE - FXWIDWIUTBMitsnmq06/08/2025 9:37 AM EDT MS CPTR-ASST SURGICAL NAVIGATION IMAGE-LESS04/07/2025 9:30 AM EDT Osteoarthritis of left knee, unspecified osteoarthritis type MS ARTHRP KNE CONDYLE&PLATU MEDIAL&LAT EHFOTXFIOVUW33/08/2025 9:30 AM EDT Osteoarthritis of left knee, unspecified osteoarthritis type HC [facility] TOXICOLOGY ANYYWXLXXY63/08/2025 7:12 AM EDT from Last 3 Months Results * MS DRAIN/INJECT LARGE JOINT/BURSA PERFORMABLE (05/19/2025 3:00 PM EST) Anatomical RegionLateralityModalityOther Narrative 05/19/2025 3:00 PM EST Елена uHghes 05/19/2025 4:28 PM LARGE JOINT/BURSA INJECTION AND/OR [...] with Betadine and alcohol. Authorizing ProviderResult TypeResult StatusSalewis county general hospitalion HughesBEDON LICENSE OF [facility] PROCEDURESFinal Result * CT ABDOMEN/PELVIS WITH CONTRAST [...] 3. Prior gastric bypass. Authorizing ProviderResult TypeResult Kimberly Reynolds MDCT ORDERABLESFinal Result * (ABNORMAL) LACTATE, BLOOD (04/17/2025 12:35 AM EDT)ComponentValueRef RangeTest MethodAnalysis TimePerformed AtPathologist SignatureLACTATE2.6(HH)0.7 - 2.0 mmol/[address]Comment: PLEASE REPEAT INITIAL CRITICAL IN 3 HOURS IF ED OR INPATIENT SEPSIS PATIENT Result called to read back by: Bessy DE LA CRUZ ??04/17/2025 @ 01:08 by [facility] Specimen (Source)Anatomical Location / LateralityCollection Method / Volume Collection TimeReceived DcuiKpxvu71/18/2025 12:35 AM EDT1 12:39 AM EDT Narrative Authorizing ProviderResult TypeResult Kimberly Reynolds MDCHEMISTRY ORDERABLESFinal ResultPerforming OrganizationAddressCity/State/ZIP CodePhone Number [address] [address] * PTT (04/17/2025 12:35 AM EDT)ComponentValueRef RangeTest MethodAnalysis Time Performed AtPathologist UwibrqxraGOV54.522.4 - 34.7 SECLAB, OSUComment: CARDIAC AND PE/DVT THERAPUTIC RANGE 69-97 SEC VASCULAR/THREATENED LIMB THERAPUTIC RANGE 80-112 SEC Specimen (Source)Anatomical Location / LateralityCollection Method / Volume Collection TimeReceived JrkhDszem30/18/2025 12:35 AM EDT1 12:38 AM EDT Narrative Authorizing ProviderResult TypeResult StatusJigar Reynolds MDCOAGULATIONFinal ResultPerforming OrganizationAddressCity/State/ZIP CodePhone Number [facility] [address] [place] [address] * PROTIME-INR (04/17/2025 12:35 AM EDT)ComponentValueRef RangeTest Method Analysis TimePerformed AtPathologist JfaceglskIK97.711.8 - 14.4 SECLAB, OSUINR 0.950.85 - 1.10LAB, OSUComment: 2.0-3.0 THERAPEUTIC RANGE 2.5-3.5 MECHANICAL VALVE RANGE Specimen (Source)Anatomical Location / LateralityCollection Method / Volume Collection TimeReceived AimoAxyql93/18/2025 12:35 AM EDT1 12:38 AM EDT Narrative Authorizing ProviderResult TypeResult StatusJigar Reynolds MDCOAGULATIONFinal ResultPerforming OrganizationAddressCity/State/ZIP CodePhone Number [facility], [facility] [address] [place] [address] * (ABNORMAL) CBC, EDIF, PLATELET (04/17/2025 12:35 AM EDT)ComponentValueRef RangeTest MethodAnalysis TimePerformed AtPathologist SignatureWBC (WHITE BLOOD COUNT)7.43.6 - 11.0 10*3/[address]RBC3.40(L)4.0 - 5.4 10*6/[address]HEMOGLOBIN (HGB)10.7(L)12.0 - 16.0 G/DL[address]ETHEMATOCRIT (HCT)31.7(L)36.0 - 48.0 % [address]Mean Cell Ancvmw02.3 80.0 - 100.[address] Cell HGB31.626.0 - 35.[address]Me Cell HGB Byvigjnpbajzi07.927.0 - 37.0 G/DL[address]RBC Yytzrrbdsocc67.411.5 - 14.5 %[address]PLATELET IYCVH478(H)130 - 400 10*3/[address]Mean Platelet Volume8.27.4 - 11.[address] DIFFERENTIAL TYPEAUTO DIFF%[address]NEUTROPHILS58.137.0 - 75.0 %[address]LYMPHOCYTE26.920.0 - 55.0 %[address]MON[address] %11.0(H)0.0 - 10.0 %[address]EOSINOPHIL %3.70.0 - 11.0 %[address]BASOPHIL %0.30.0 - 2.0 %[address] Neutrophil Count4.3 1.4 - 6.5 10*3/[address] LYMPHOCYTES, ABSOLUTE2.01.2 - 3.4 10*3/22 [address]MONOCYTES, ABSOLUTE0.8(H)0.0 - 0.7 10*3/[address]ABSOLUTE EOSINOPHIL COUNT0.3 0.0 - 0.7 10*3/[address] ABSOLUTE BASOPHIL COUNT0.00.0 - 0.2 10*3/22 [address] StreetSpecimen (Source)Anatomical Location / Laterality Collection Method / VolumeCollection TimeReceived FslnHgvxe07/18/2025 12:35 AM EDT1 12:38 AM EDT Narrative Authorizing ProviderResult TypeResult StatusJason J Reynolds MDHEMATOLOGY ORDERABLESFinal ResultPerforming OrganizationAddressCity/State/ZIP CodePhone Number [address] [address] * MAGNESIUM (04/17/2025 12:35 AM EDT)ComponentValueRef RangeTest MethodAnalysis TimePerformed AtPathologist SignatureMAGNESIUM1.71.6 - 2.3 MG/DL[address]Specimen (Source)Anatomical Location / LateralityCollection Method / VolumeCollection TimeReceived Time Blood04/17/2025 12:35 AM EDT1 12:38 AM EDT Narrative Authorizing ProviderResult TypeResult StatusJigar Reynolds MDCHEMISTRY ORDERABLESFinal ResultPerforming OrganizationAddressCity/State/ZIP CodePhone Number [address] [address] * (ABNORMAL) COMPREHENSIVE METABOLIC PANEL (04/17/2025 12:35 AM EDT)Component ValueRef RangeTest MethodAnalysis TimePerformed AtPathologist SignatureGlucose 122(H)70 - 100 MG/DL[address] Comment: NORMAL <100 mg/dL PREDIABETES 101-126 mg/dL DIABETES 126 mg/dL or higher BUN77 - 20 mg/dL[address] CREATININE SERUM0.60(L)0.70 - 1.20 mg/dL[address]SODIUM140137 - 145 MMOL/[address]Potassium3.0(L)3.5 - 5.1 MMOL/[address]ETCHLORIDE10598 - 107 MMOL/[address]Comment:Please note: Triglyceride levels of 600mg/dL or higher may positively bias chloride results by approximately 2.1 mmolCALCIUM9.58.4 - 10.2 mg/dL[address]PROTEIN, TOTAL6.66.3 - 8.2 g/dL[address]Albumin3.63.5 - 5.0 g/dL[address]BILIRUBIN, TOTAL0.80.2 - 1.3 mg/dL[address]AST2414 - 36 U/[address]ALKALINE HHCMJBHMHNO942(H)38 - 126 U/[address]CARBON DIOXIDE (CO2)2322 - 30 MMOL/[address]A/G Ratio1.2RATIOON[address]ALT15<35 U/[address]ESTIMATED HZC391ji/min/1.73sq.[address]GFR COMMENTAverage GFR for 50-59 years old = 93.[address]Comment: Chronic Kidney disease, GFR = <60. Kidney failure, GFR = <15. The GFR estimate is not adjusted for extreme body surface area or acute process, nor has it been validated for women or ethnic groups other than and . MDRD Equation Specimen (Source)Anatomical Location / LateralityCollection Method / Volume Collection TimeReceived XsbhXtylv15/18/2025 12:35 AM EDT1 12:38 AM EDT Narrative Authorizing ProviderResult TypeResult StatusJigar Reynolds MDCHEMISTRY ORDERABLESFinal ResultPerforming OrganizationAddressCity/State/ZIP CodePhone Number [address] [address] * XR KNEE LEFT 1-2 VIEWS (04/07/2025 [...] 3. Tiny quadriceps enthesophyte. Authorizing ProviderResult TypeResult StatusAnna Cosmo COLLIERCDIAGNOSTIC IMAGING ORDERABLESFinal Result * Nerve Block (04/07/2025 12:22 PM EDT)Anatomical RegionLateralityModalityOther Narrative 04/07/2025 12:22 PM EDT JESUS Tom 04/07/2025 12:23 PM Nerve Block Other Adductor Canal Patient location during procedure: post-op Room: 9 Start time: 04/07/2025 11:58 AM End time: 04/07/2025 12:05 PM Reason for block: at surgeon's request Surgeon: Baltazar Cespedes Fellow/Resident/REENA/AA: JESUS Tom Performed: Fellow/Resident/REENA/AA [place] Protocol Verbal consent obtained Written consent obtained [...] to verify the correct patient, procedure, equipment, it support engineer and site/side marked as required Procedure Details Patient position: sitting Prep: ChloraPrep Patient monitoring: continuous pulse ox, blood pressure and cardiac cath lab technologist Laterality: left Technique: ultrasound guided Number of [...] Tolerated procedure well. Authorizing ProviderResult TypeResult Christopher Love LEAD GAME DESIGNER-CRNABEDSIDE PROCEDURESFinal Result * PROCEDURE NOTE (SCANNED) (04/07/2025 [...] Surgical Final Report Patient Name: LORNE HIGHTOWER [facility]. Rec. #: [id number] Physician: EMETERIO LEDESMA Specimen(s) Received Left knee bone Other Related Clinical Data Not provided Clinical / Pre-Operative Diagnosis Osteoarthritis of left knee, unspecified type Post-Operative Diagnosis Not provided ?? Surgical Procedure Arthroplasty knee total and assistance surgical navigation musculoskeletal imageless add-on px Diagnosis: Left Knee Bone, excision: -Consistent with degenerative joint disease Electronically Signed lks/04/08/2025 Corona eKndrick MD Gross Description: The specimen is received in formalin, and labeled left knee bone, Lorne Hightower and date of 1965. ??The specimen consists of multiple fragments of bone and soft tissue measuring in aggregate 8 x 5 x 5 cm. ??The articular cartilage has degenerative changes. ??A payroll representative section is submitted in one cassette and placed in decalcification solution prior to processing. Billing Fee Code(s) A: 37643, [id number], OSUSpecimen (Source)Anatomical Location / Laterality Collection Method / VolumeCollection TimeReceived TimePermanentTISSUE SPECIMEN / Scfemer1904/07/2025 10:20 AM EDT Narrative Authorizing ProviderResult TypeResult StatusScott Foster MDSURG PATHFinal Result Performing OrganizationAddressCity/State/ZIP CodePhone Number LAB, [facility] [address] [place] [address] * MS PROCEDURE - INTUBATION ETT (04/07/2025 9:37 AM EDT)Anatomical Region LateralityModalityOther Narrative 04/07/2025 9:37 AM EDT JESUS Tom 04/07/2025 9:44 AM *INTUBATION Date/Time: 04/07/2025 9:37 AM Authorized by: JESUS Tom ?? Performed by: JESUS Tom GENERAL STAFF INFORMATION: Patient location during procedure: OR Room: 04 OPER No anticipated increased risk of difficult airway [...] at: 04/07/2025 9:37 AM Authorizing ProviderResult TypeResult Christopher LEEBEDSIDE PROCEDURESFinal Result * (ABNORMAL) TOXICOLOGY DRUG SCREEN, URINE (04/07/2025 7:12 AM EDT)Component ValueRef RangeTest MethodAnalysis TimePerformed AtPathologist Signature Amphetamines, Urine, ScreenNEGATIVENEGATIVE NG/ML[address]ment:<500 ng/ml CUTOFFMethamphetamineNEGATIVE NEGATIVE NG/ML[address] Streetment: <500 ng/ml CUTOFFBarbituratesNEGATIVENEGATIVE NG/ML[address]ment:<200 ng/ml CUTOFFBenzodiazepinesPOSITIVE (A)NEGATIVE NG/ML[address] Comment: <200 ng/ml CUTOFF *Unconfirmed Screening Result* ??Unconfirmed screening results are to be used only for medical treatment purposes. CocaineNEGATIVENEGATIVE NG/ML[address] Streetment:<150 ng/ml CUTOFFMethadone MetaboliteNEGATIVENEGATIVE NG/ML [address]Comment:<100 ng/ml CUTOFFOpiates, Urine ScreenNEGATIVENEGATIVE NG/ML[address]:<300 ng/ml CUTOFFTricyclic Antidepressants, UrineNEGATIVENEGATIVE NG/ML[address]:<1000 ng/ml CUTOFFCannabinoids (Marijuana)POSITIVE(A)NEGATIVE NG/ML[address]: <50 ng/ml CUTOFF *Unconfirmed Screening Result* ??Unconfirmed screening results are to be used only for medical treatment purposes. Oxycodone ConfirmationNEGATIVENEGATIVE NG/ML[address]:<100 ng/ml CUTOFFBuprenorphineNEGATIVENEGATIVE NG/ML[address]:<10 ng/ml CUTOFFFentanylNEGATIVENEGATIVE NG/ML93 [address] Streetment: 1.0 ng/mL CUTOFF *Unconfirmed Screening Result* ??Unconfirmed screening results are to be used only for medical treatment purposes. ??This test has not been approved by the FDA. Specimen (Source)Anatomical Location / LateralityCollection Method / Volume Collection TimeReceived NscwBqpea98/08/2025 7:12 AM EDT1 7:19 AM EDT Narrative Authorizing ProviderResult TypeResult StatusChad Violeta LEAD GAME DESIGNER-CNPDRUG/TOXICOLOGY Final ResultPerforming OrganizationAddressCity/State/ZIP CodePhone Number [facility] [address] [place] [address] from Last 3 Months Insurance Advance Directives For more information, please contact: [phone] (7:30 AM - 6PM [facility], Saturday-Saturday) * Full Code (Latest Code Status on File) Date ActivatedDate DryldqsqxdhMumqqdbe78/8/2025 11:42 AM Care Teams Team MemberRelationshipSpecialtyStart DateEnd Date Jimmie Demarco DO [address], [place] [address] PCP - GeneralFamily Medicine01/04/25
--- OUTSIDE RECORDS SUMMARY | 2025-06-26 16:37 | XMS_ITS | Encounter Summary ---
Author Organization [facility] Address [address] [address] Phone Care Team Providers Care Bath Attendant Name Role Phone Jimmie Demarco DO Primary Care Provider [phone] Encounter Details DateTypeDepartmentCare Team (Latest Contact Info)Ivawqxoodhi76/22/2025Travel Social History Tobacco UseTypesPacks/DayYears UsedDateSmoking Tobacco: FormerCigarettes [...] the following new or worsening symptoms?None of these06/21/2025 8:40 AM Inna Garvey RN documented as of this encounter Plan of Treatment Not on file documented as of this encounter Visit Diagnoses Not on filedocumented in this encounter Care Teams Team MemberRelationshipSpecialtyStart DateEnd Date Jimmie Demarco DO [address] [facility], [place] [address] PCP - GeneralFamily Zuxifqlw42/22/25documented as of this encounter
[2025-06-26 16:45] LABS: Hematocrit 37.4 % (36.0-48.0); Hemoglobin 12.5 g/dL (12.0-16.0); Immature Granulocytes Abs Auto 0.04 10^3/uL (0.00-0.03); Immature Granulocytes Pct Auto 0.5 % (0.0-0.5); Lymphocytes Absolute Auto 1.4 10^3/uL (1.2-3.8); Mean Corpuscular HGB Conc 33.4 g/dL (29.9-35.2); Mean Corpuscular Hemoglobin 29.9 pg (26.7-34.0); Mean Corpuscular Volume 89.5 fL (81.0-99.0); Platelet Count 451 10^3/uL (150-450); Red Blood Count 4.18 10^6/uL (4.20-5.40); White Blood Count 8.9 10^3/uL (4.0-11.0)
[2025-06-26 17:07] LABS: Alanine Aminotransferase 13 U/L (14-59); Albumin Globulin Ratio 1.0; Albumin Level 3.8 g/dL (3.4-5.0); Alkaline Phosphatase 141 U/L (46-116); Anion Gap 16.9; Aspartate Amino Transferase 14 U/L (15-37); Blood Urea Nitrogen 15.0 mg/dL (7.0-18.0); Calcium 10.2 mg/dL (8.5-10.1); Carbon Dioxide 20.8 mmol/L (21.0-32.0); Chloride 102 mmol/L (98-107); Estimated GFR (African America >60 (>=60 mL/min/1.73m^2); Estimated GFR (Non-African Ame >60 (>=60 mL/min/1.73m^2); Globulin 3.7 g/dL; Glucose 114 mg/dL (74-106); NT Pro B Type Natriuretic Pept 883.0 pg/mL (<=900.0); Potassium 3.7 mmol/L (3.5-5.1); Sodium 136 mmol/L (136-145); Total Protein 7.5 g/dL (6.4-8.2)
--- NOTE | 2025-06-26 18:31 | ED_ITS ---
HPI HPI - General Adult General Chief complaint: Chest Pain Stated complaint: CHEST PAIN, SOB Time Seen by Provider: 06/26/25 16:09 Source: patient Mode of arrival: Wheelchair Limitations: no limitations History of Present Illness HPI narrative: Patient is a 60-year-old female presenting to the emergency department for evaluation of chest pain. Patient states she was driving a car when she acute onset left-sided chest pain rating to her back. She denies any nausea or vomiting associated with it. Denies history of coronary artery disease or previous [place]. No history of DVT/PE. She states that the pain is resolved, though she feels extremely anxious. She states he has a history of anxiety. She denies any headache, neck pain, abdominal pain, nausea, vomiting, fevers, or chills. Related Data Home Medications ?Medication ?Instructions ?Recorded ?Confirmed cholecalciferol (vitamin D3) 1,250 50,000 unit PO QWEE K 03/16/24 06/06/25 mcg (50,000 unit) capsule escitalopram oxalate 20 mg tablet 20 mg PO QDAY 06/05/25 tizanidine 4 mg tablet 8 mg PO .qhs muscle spasms 0 03/16/24 06/06/25 albuterol 90 mcg/actuation aerosol 90 mcg inhalation Q 4H PRN 06/05/25 06/06/25 inhaler shortness of breath cariprazine 1.5 mg capsule 1.5 mg PO DAILY 06/05/25 (Vraylar) hydroxyzine HCl 25 mg tablet 25 mg PO Q8H PRN anxiety 06/05/25 06/05/25 lorazepam 1 mg tablet (Ativan) 1 mg PO Q12H PRN anxiet y 06/05/25 06/05/25 ondansetron 8 mg disintegrating 8 mg PO Q8H PRN nausea and vomiting 06/05/25 06/05/25 tablet pantoprazole 40 mg tablet,delayed 40 mg PO DAILY 06/0506/05/25 release pregabalin 50 mg capsule 50 mg PO Q8H 06/05/25 tizanidine 4 mg tablet (Zanaflex) 4 mg PO Q8H PRN musc le spasticity 06/05/25 06/06/25 Previous Rx's ?Medication ?Instructions ?Recorded buprenorphine 8 mg-naloxone 2 mg 0.5 tab sublingual BI D 7 days #7 06/09/25 sublingual tablet tabs polyethylene glycol 3350 17 gram 17 g PO QD 10 days #1 4 ea 06/09/25 oral powder packet sennosides 8.6 mg-docusate sodium 1 tab PO QD PRN Cons tipation 10 06/09/25 50 mg tablet days #10 tabs Allergies Allergy/AdvReac Type Severity Reaction Status Date / Time tramadol (From [facility]) Allergy unknown Verified 06/26/25 16:20 Opioid HPI Opioid Management Most Recent Opioid Data: Last Pain Scale 8 Today, 17:20 Last ORT Total Score 6 06/05/25, 17:43 Last ORT Risk Category Moderate Risk 06/05/25, 17:43 Last COWS Score 1 06/08/25, 07:44 Ur Phencyclidine Scrn, (NEGATIVE) Negative , 14:15 Review of Systems ROS Status of ROS 10 or more systems reviewed and unremark able except as noted in history and below PFSH PFSH Surgical History (Updated 06/05/25 @ 18:06 by Zoey Abraham) History of back surgery ?Z98.890 - Other specified postprocedural states (ICD-10) History of total left knee replacement ?Z96.652 - Presence of left artificial knee joint (ICD-10) H/O gastric bypass ?Z98.84 - Bariatric surgery status (ICD-10) Family History (Updated 06/05/25 @ 18:07 by Zoey Abraham) Father Family history of myocardial infarction Social History Highest level of school completed/degree received: Associate degree: occupational, technical, vocational program Little interest or pleasure in doing things: not at all Feeling down, depressed, or hopeless: not at all Exam Narrative Exam Narrative: CONSTITUTIONAL: Patient is extremely anxious, shaking, answering questions and follow commands appropriate. SKIN: Was warm and dry. EYES: No conjunctival pallor. EARS, NOSE, THROAT: No JVD. RESPIRATORY: Clear to auscultation bilaterally, no wheezes, crackles, or strido r, no use of accessory muscles CARDIOVASCULAR: Normal rate and regular rhythm. There is no S3, S4, murmur, rub. Radial and dorsalis pedis pulses are 2+ and symmetrical. GASTROINTESTINAL: Abdomen was soft, non-tender, and non-distended. There is no guarding or rebound tenderness MUSCULOSKELETAL: There was no lower extremity edema, erythema, or tenderness. NEUROLOGIC: Patient is awake and alert. Equal strength in all extremities. Facies were symmetrical. Constitutional Vital Signs, click to edit/add: Last Vital Signs Temp 98.1 F 06/26/25 16:17 Pulse 82 06/26/25 18:10 Resp 23 H 06/26/25 18:10 BP 160/100 H 06/26/25 18:43 Pulse Ox 97 06/26/25 18:43 O2 Del Method Room Air 06/26/25 16:23 Course Vital Signs Vital signs: Vital Signs Pulse Rate 104 H 06/26/25 16:14 Respiratory Rate 7 L 06/26/25 16:14 Temperature 98.1 F 06/26/25 16:17 Pulse Rate 82 06/26/25 18:10 Respiratory Rate 23 H 06/26/25 18:10 Blood Pressure 160/100 H 06/26/25 18:43 Pulse Oximetry 97 06/26/25 18:43 Oxygen Delivery Method Room Air 06/26/25 16:23 Medical Decision Making [facility] Narrative Medical decision making narrative: Patient is a 60-year-old female presenting to the emergency department acute onset chest pain that occurred while she was driving her car. Her vital signs on arrival are significant for hypertension, tachycardia, tachypnea. She is saturating 98% on room air with clear breath sounds bilaterally. She appears extremely anxious and think she might be having a panic attack. Her examination was overall unremarkable. Differential diagnosis includes panic attack, ACS, pneumothorax, aortic dissection, PE, or other electrolyte/metabolic derangement. IV is established laboratory studies were obtained. Cardiac workup was ordered. She was given IV Ativan for her anxiety. CT angiogram of the chest demonstrated no acute cardiopulmonary process. 12 Lead EKG: Normal sinus rhythm at a rate of 80. Normal axis. RSR' configuration in leads V1 and V2 consistent with RBBB. No ST segment elevations. QRS, [place], and QTc interval within normal limits. Final impression: normal sinus rhythm without evidence of acute myocardial ischemia Laboratory studies were unremarkable. No significant electrolyte or metabolic derangement. No evidence of acute kidney injury. No anemia, leukocytosis, or thrombocytopenia. Initial and repeat 2-hour troponin were negative. BNP nonelevated. On reevaluation, patient's vital signs have normalized. She is currently asymptomatic, appears less anxious, and not complaining of chest pain. She is requesting to be discharged home. Her presentation is likely consistent with a panic attack. I do believe the patient is stable for discharge. They were instructed to follow up with her PCP as needed. Return precautions were given including any new or worsening symptoms. Patient understands and agrees to the plan. FINAL IMPRESSION: #Acute chest pain, resolved #Acute anxiety attack DISPOSITION: Discharge home CONDITION: Good Medical Records Medical records reviewed: Yes I reviewed the patient's medical records Lab Data Lab results reviewed: Yes I reviewed the patient's lab results Labs: Lab Results 06/26/25 06/26/25 Range/Units 16:25 18:01 WBC 8.9 (4.0-11.0) 10^3/uL RBC 4.18 L (4.20-5.40) 10^6/uL Hgb 12.5 (12.0-16.0) g/dL Hct 37.4 (36.0-48.0) % MCV 89.5 (81.0-99.0) fL MCH 29.9 (26.7-34.0) pg MCHC 33.4 (29.9-35.2) g/dL RDW 14.3 (11.0-15.0) % Plt Count 451 H (150-450) 10^3/uL MPV 10.8 (9.5-13.5) fL Neut % (Auto) 75.1 H (43.0-75.0) % Lymph % (Auto) 15.4 L (20.5-60.0) % [place] % (Auto) 7.8 (1.7-12.0) % Eos % (Auto) 0.2 L (0.9-7.0) % Baso % (Auto) 1.0 (0.2-2.0) % Neut # (Auto) 6.7 H (1.4-6.5) 10^3/uL Lymph # (Auto) 1.4 (1.2-3.8) 10^3/uL [place] # (Auto) 0.7 (0.3-0.8) 10^3/uL Eos # (Auto) 0.0 (0.0-0.7) 10^3/uL Baso # (Auto) 0.1 (0.0-0.1) 10^3/uL Abs Immat Gran (auto) 0.04 H (0.00-0.03) 10^3/uL Imm/Tot Granulo (auto) 0.5 (0.0-0.5) % Sodium 136 (136-145) mmol/L Potassium 3.7 (3.5-5.1) mmol/L Chloride 102 (98-107) mmol/L Carbon Dioxide 20.8 L (21.0-32.0) mmol/L Anion Gap 16.9 BUN 15.0 (7.0-18.0) mg/dL Creatinine 0.85 (0.55-1.02) mg/dL Est GFR ( Amer) >60 (>=60 mL/min/1.73m^2) Est GFR (Non-Af Amer) >60 (>=60 mL/min/1.73m^2) BUN/Creatinine Ratio 17.6 Glucose 114 H (74-106) mg/dL Calcium 10.2 H (8.5-10.1) mg/dL Total Bilirubin 0.5 (0.2-1.0) mg/dL AST 14 L (15-37) U/L ALT 13 L (14-59) U/L Alkaline Phosphatase 141 H (46-116) U/L Troponin I High Sens 19.5 21.4 (4.0-51.3) pg/mL NT-Pro-B Natriuret Pep 883.0 (<=900.0) pg/mL Total Protein 7.5 (6.4-8.2) g/dL Albumin 3.8 (3.4-5.0) g/dL Globulin 3.7 g/dL Albumin/Globulin Ratio 1.[address] scan - chest: Attestation: I personally reviewed and interpreted this imaging study as follows: Radiologist's impression: ITS Impressions Chest CTA 06/26/25 16:21 IMPRESSION: No aortic aneurysm or dissection. No acute chest findings Impression dictated by: Mark Londono M.D. 06/26/2025 5:06 PM Dictation Location: [place] [address] Electronically authenticated by: [id number] Y Date: 06/26/2025 17:06 ECG Data Attestation: I personally reviewed and interpreted this ECG as follows: Discharge Plan Discharge Chief Complaint: Chest Pain Clinical Impression: Atypical chest pain, Anxiety Patient Disposition: Home, Self-Care Time of Disposition Decision: 18:32 Condition: Good Mode of Transportation: Private Vehicle Prescriptions / Home Meds: No Action tizanidine 4 mg tablet 8 mg PO .qhs Rx Instructions: TAKES 2 TABS (8 MG) AT BEDTIME PER PT escitalopram oxalate 20 mg tablet 20 mg PO QDAY cholecalciferol (vitamin D3) 1,250 mcg (50,000 unit) capsule 50,000 unit PO QWEEK Rx Instructions: SATURDAY lorazepam [Ativan] 1 mg tablet 1 mg PO Q12H PRN (Reason: anxiety) tizanidine [Zanaflex] 4 mg tablet 4 mg PO Q8H PRN (Reason: muscle spasticity) pregabalin 50 mg capsule 50 mg PO Q8H hydroxyzine HCl 25 mg tablet 25 mg PO Q8H PRN (Reason: anxiety) pantoprazole 40 mg tablet,delayed release (DR/EC) 40 mg PO DAILY Vraylar 1.5 mg capsule 1.5 mg PO DAILY ondansetron 8 mg tablet,disintegrating 8 mg PO Q8H PRN (Reason: nausea and vomiting) albuterol 90 mcg/actuation aerosol 90 mcg inhalation Q4H PRN (Reason: shortness of breath) polyethylene glycol 3350 17 gram Powder In Packet 17 g PO QD 10 Days Qty: 14 0RF sennosides-docusate sodium 8.6-50 mg Tablet 1 tab PO QD PRN (Reason: Constipation) 10 Days Qty: 10 0RF buprenorphine-naloxone 8-2 mg Tablet, Sublingual 0.5 tab sublingual BID 7 Days Qty: 7 0RF Print Language: Salvadorean Instructions: Noncardiac Chest Pain (ED), Anxiety (ED) Referrals: GARY GARCIA [Primary Care Provider, Family Practice] - 1 week
--- NOTE | 2025-06-26 20:04 | ECG_ITS ---
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 Measurements Intervals [place] Rate: 80 P: 53 DC: 136 QRS: -20 QRSD: 86 T: 51 QT: 404 QTc: 440 Interpretive Statements 1100 Sinus rhythm 1102 Sinus arrhythmia 2420 RSR (QR) in lead V1/V2, consistent with right ventricular conduction delay 6220 Possible left atrial enlargement 9130 borderline ECG Compared to ECG 06/26/2025 16:15:58 Sinus tachycardia no longer present ST (T wave) deviation no longer present Left-axis deviation no longer present Electronically Signed On 06-27-2025 13:10:54 EST by SAMANTHA DUMAS M.D.
--- NOTE | 2025-06-26 20:05 | ECG_ITS ---
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 Measurements Intervals [place] Rate: 82 P: 54 PA: 142 QRS: -23 QRSD: 84 T: 46 QT: 418 QTc: 456 Interpretive Statements 1100 Sinus rhythm 1102 Sinus arrhythmia 2420 RSR (QR) in lead V1/V2, consistent with right ventricular conduction delay 7202 Moderate left axis deviation 9150 abnormal ECG Compared to ECG 06/26/2025 16:34:53 Left-axis deviation now present Electronically Signed On 06-27-2025 13:11:23 EST by SAMANTHA DUMAS M.D.
== END 2025-06-26 19:12 | disposition home or self-care (01) ==
PROVIDERS: Emergency Provider Student in an Organized Health Care Education/Training Program; PCP Family Medicine
DX: R07.89 Other chest pain (principal); F41.9 Anxiety disorder, unspecified
CPT/HCPCS: 36415; 71275; 80053; 83880; 84484; 85025; 93005; 96374; 99285; J2060; Q9967